=== PATIENT | male | born 1960 | race Caucasian/White ===

== ENCOUNTER → 2017-12-16 10:22 | Outpatient (CLI) | payer MEDICARE, SELFPAY ==
[2017-12-16 11:06] LABS: Hematocrit 41.9 % (40-54); Hemoglobin 14.4 g/dl (13.0-16.5); Mean Corp Hgb Conc 34.4 g/gl (32-36); Mean Corpuscular Hgb 30.5 pg (27.0-32.0); Mean Corpuscular Volume 88.8 fL (80-94); Mean Platelet Vol. 10.4 fl (6.2-12.0); Platelet Count 173 K/mm3 (150-450); RBC Distribution Width CV 12.7 % (11.6-14.6); RBC Distribution Width SD 40.7 fl (35.1-43.9); Red Blood Count 4.72 M/mm3 (4.6-6.2); White Blood Count 8.6 K/mm3 (4.4-11.0)
[2017-12-16 11:07] LABS: Scan Indicated on CBC? Y/N NO
[2017-12-16 11:15] LABS: Microalbumin,Random Urine 71.7 mg/L (NO RANGE EST.); Microalbumin:Creatinine Ratio 73.8 mg/g CRE (<30 mg/g CRE)
[2017-12-16 11:36] LABS: Albumin, Serum 3.7 g/dL (3.2-5.0); BUN 30 mg/dL (7-18); BUN/Creat Ratio 12.4 RATIO (10-20); Calcium,Total 8.5 mg/dL (8.5-10.1); Chloride 110 mmol/L (98-107); Creatinine, Serum 2.42 mg/dL (0.70-1.30); EST Glomerular Filtration Rate 30 mL/min (>60); Est Glom Filt Rate - Afr Amer 36 mL/min (>60); Glucose 89 mg/dL (74-106); Magnesium 1.8 mg/dL (1.6-2.6); Phosphorus 2.8 mg/dL (2.5-4.9); Potassium 4.6 mmol/L (3.5-5.1); Sodium Level 138 mmol/L (136-145)
[2017-12-17 10:52] LABS: Vitamin D,25 Hydroxy 43.7 ng/mL (29.95-100.01)
[2017-12-17 10:56] LABS: PTHIN 132.2 pg/mL (18.4-80.1)
== END ==
PROVIDERS: Family Provider Family Medicine; PCP Family Medicine; Visit Provider Internal Medicine Nephrology
DX: N18.4 Chronic kidney disease, stage 4 (severe) (principal); E55.9 Vitamin D deficiency, unspecified; N25.81 Secondary hyperparathyroidism of renal origin
CPT/HCPCS: 36415; 80069; 82043; 82306; 82570; 83735; 83970; 85027

== ENCOUNTER → 2018-03-24 12:13 | Outpatient (CLI) | payer MEDICARE, SELFPAY ==
[2018-03-24 12:40] LABS: Absolute Lymphocyte Count 1.29 X10^3/ul (0.83-4.51); Absolute Neutrophil Count 5.7 X10^3/uL (2.0-7.7); Basophil# 0.03 X10^3/uL; Basophil% 0.4 % (0-1); Eosinophil# 0.18 X10^3/uL; Eosinophils% 2.3 % (0-5); Hematocrit 42.7 % (40-54); Hemoglobin 14.1 g/dl (13.0-16.5); Lymphocyte # 1.29 X10^3/ul (4.0); Lymphocyte % 16.5 % (19-41); Mean Corpuscular Hgb 29.7 pg (27.0-32.0); Mean Corpuscular Volume 90.1 fL (80-94); Monocyte# 0.58 X10^3/uL; Monocyte% 7.4 % (0-10); Neutrophil # 5.71 X10^3/uL (2.7-7.7); Neutrophil % 73.1 % (47-70); POSITIVE COUNT NO; POSITIVE DIFFERENTIAL NO; POSITIVE MORPHOLOGY NO; Platelet Count 152 K/mm3 (150-450); RBC Distribution Width CV 12.6 % (11.6-14.6); RBC Distribution Width SD 41.4 fl (35.1-43.9); Red Blood Count 4.74 M/mm3 (4.6-6.2); White Blood Count 7.8 K/mm3 (4.4-11.0)
[2018-03-24 12:55] LABS: Protein:Creat Ratio 213 mg/g CRE (0-200)
[2018-03-24 13:03] LABS: Albumin, Serum 3.7 g/dL (3.2-5.0); BUN 35 mg/dL (7-18); Calcium,Total 8.6 mg/dL (8.5-10.1); Chloride 111 mmol/L (98-107); EST Glomerular Filtration Rate 26 mL/min (>60); Est Glom Filt Rate - Afr Amer 31 mL/min (>60); Glucose 94 mg/dL (74-106); Phosphorus 3.1 mg/dL (2.5-4.9); Potassium 4.7 mmol/L (3.5-5.1); Sodium Level 140 mmol/L (136-145)
[2018-03-25 09:47] LABS: PTHIN 165.6 pg/mL (18.4-80.1)
[2018-03-25 09:54] LABS: Vitamin D,25 Hydroxy 48.8 ng/mL (29.95-100.01)
== END ==
PROVIDERS: Family Provider Family Medicine; PCP Family Medicine; Visit Provider Internal Medicine Nephrology
DX: N18.4 Chronic kidney disease, stage 4 (severe) (principal); E55.9 Vitamin D deficiency, unspecified; N25.81 Secondary hyperparathyroidism of renal origin
CPT/HCPCS: 36415; 80069; 82306; 82570; 83970; 84156; 85025

== ENCOUNTER → 2018-07-23 11:15 | Outpatient (CLI) | payer MEDICARE, SELFPAY ==
[2018-07-23 12:35] LABS: Hematocrit 42.3 % (40-54); Hemoglobin 14.3 g/dl (13.0-16.5); Mean Corp Hgb Conc 33.8 g/gl (32-36); Mean Corpuscular Hgb 30.4 pg (27.0-32.0); Mean Corpuscular Volume 89.8 fL (80-94); Mean Platelet Vol. 10.4 fl (6.2-12.0); Platelet Count 163 K/mm3 (150-450); RBC Distribution Width CV 12.6 % (11.6-14.6); RBC Distribution Width SD 41.1 fl (35.1-43.9); Red Blood Count 4.71 M/mm3 (4.6-6.2); White Blood Count 8.2 K/mm3 (4.4-11.0)
[2018-07-23 12:36] LABS: Scan Indicated on CBC? Y/N NO
[2018-07-23 12:54] LABS: Albumin, Serum 3.8 g/dL (3.2-5.0); BUN 30 mg/dL (7-18); BUN/Creat Ratio 11.3 RATIO (10-20); Calcium,Total 8.7 mg/dL (8.5-10.1); Chloride 111 mmol/L (98-107); Creatinine, Serum 2.65 mg/dL (0.70-1.30); EST Glomerular Filtration Rate 27 mL/min (>60); Est Glom Filt Rate - Afr Amer 32 mL/min (>60); Glucose 84 mg/dL (74-106); Phosphorus 2.8 mg/dL (2.5-4.9); Potassium 4.9 mmol/L (3.5-5.1); Sodium Level 140 mmol/L (136-145)
[2018-07-23 12:59] LABS: Protein, Urine (Random) 13.5 mg/dL (<11.9); Protein:Creat Ratio 209 mg/g CRE (0-200)
[2018-07-23 13:00] LABS: PTHIN 117.5 pg/mL (18.4-80.1); Vitamin D,25 Hydroxy 46.5 ng/mL (29.95-100.01)
== END ==
PROVIDERS: Family Provider Family Medicine; PCP Family Medicine; Referring Provider Internal Medicine Nephrology; Visit Provider Internal Medicine Nephrology
DX: N18.4 Chronic kidney disease, stage 4 (severe) (principal)
CPT/HCPCS: 36415; 80069; 82306; 82570; 83970; 84156; 85027

== ENCOUNTER → 2018-12-23 | Outpatient (CLI) | payer MEDICARE, SELFPAY ==
[2018-12-23 11:42] LABS: Hematocrit 39.6 % (40-54); Hemoglobin 13.5 g/dl (13.0-16.5); Mean Corp Hgb Conc 34.1 g/gl (32-36); Mean Corpuscular Hgb 30.1 pg (27.0-32.0); Mean Corpuscular Volume 88.4 fL (80-94); Mean Platelet Vol. 9.8 fl (6.2-12.0); Platelet Count 139 K/mm3 (150-450); RBC Distribution Width CV 12.5 % (11.6-14.6); RBC Distribution Width SD 40.2 fl (35.1-43.9); Red Blood Count 4.48 M/mm3 (4.6-6.2); White Blood Count 6.9 K/mm3 (4.4-11.0)
[2018-12-23 11:44] LABS: Scan Indicated on CBC? Y/N NO
[2018-12-23 11:53] LABS: Protein, Urine (Random) 13.6 mg/dL (<11.9); Protein:Creat Ratio 258 mg/g CRE (0-200)
[2018-12-23 12:08] LABS: Albumin, Serum 3.4 g/dL (3.2-5.0); BUN 40 mg/dL (7-18); BUN/Creat Ratio 14.1 RATIO (10-20); Calcium,Total 8.3 mg/dL (8.5-10.1); Chloride 109 mmol/L (98-107); Creatinine, Serum 2.83 mg/dL (0.70-1.30); EST Glomerular Filtration Rate 25 mL/min (>60); Est Glom Filt Rate - Afr Amer 30 mL/min (>60); Glucose 114 mg/dL (74-106); Phosphorus 2.7 mg/dL (2.5-4.9); Potassium 4.4 mmol/L (3.5-5.1); Sodium Level 138 mmol/L (136-145)
[2018-12-23 12:15] LABS: PTHIN 126.8 pg/mL (18.4-80.1); Vitamin D,25 Hydroxy 46.3 ng/mL (29.95-100.01)
== END | disposition home or self-care (01) ==
LOC: LAB 11:13
PROVIDERS: Family Provider Family Medicine; PCP Family Medicine; Referring Provider Physician Assistant Medical; Visit Provider Physician Assistant Medical
DX: N18.3 Chronic kidney disease, stage 3 (moderate) (principal); E55.9 Vitamin D deficiency, unspecified
CPT/HCPCS: 36415; 80069; 82306; 82570; 83970; 84156; 85027

== ENCOUNTER → 2019-06-18 09:42 | Outpatient (CLI) | payer MEDICARE, SELFPAY ==
[2019-06-18 10:56] LABS: Absolute Lymphocyte Count 1.11 X10^3/uL (0.83-4.51); Absolute Neutrophil Count 6.2 X10^3/uL (2.0-7.7); Basophil# 0.04 X10^3/uL; Basophil% 0.5 % (0-1); Eosinophil# 0.24 X10^3/uL; Eosinophils% 2.9 % (0-5); Hematocrit 42.5 % (40-54); Hemoglobin 14.1 g/dL (13.0-16.5); Lymphocyte # 1.11 X10^3/ul (4.0); Lymphocyte % 13.5 % (19-41); Mean Corp Hgb Conc 33.2 g/dL (32-36); Mean Corpuscular Hgb 30.3 pg (27.0-32.0); Mean Corpuscular Volume 91.2 fL (80-94); Mean Platelet Vol. 10.5 fl (6.2-12.0); Monocyte# 0.58 X10^3/uL; NRBC Flagged by Analyzer 0 % (0-5); Neutrophil # 6.24 X10^3/uL (2.7-7.7); Neutrophil % 75.7 % (47-70); Platelet Count 155 K/mm3 (150-450); RBC Distribution Width CV 12.1 % (11.6-14.6); RBC Distribution Width SD 40.4 fl (35.1-43.9); Red Blood Count 4.66 M/mm3 (4.6-6.2); White Blood Count 8.2 K/mm3 (4.4-11.0)
[2019-06-18 11:08] LABS: Protein, Urine (Random) 32.9 mg/dL (<11.9); Protein:Creat Ratio 436 mg/g CRE (0-200)
[2019-06-18 11:22] LABS: Albumin, Serum 3.6 g/dL (3.2-5.0); BUN 36 mg/dL (7-18); BUN/Creat Ratio 12.9 RATIO (10-20); Calcium,Total 8.4 mg/dL (8.5-10.1); Chloride 110 mmol/L (98-107); Creatinine, Serum 2.78 mg/dL (0.70-1.30); EST Glomerular Filtration Rate 25 mL/min (>60); Est Glom Filt Rate - Afr Amer 30 mL/min (>60); Glucose 111 mg/dL (74-106); Phosphorus 2.9 mg/dL (2.5-4.9); Potassium 4.5 mmol/L (3.5-5.1); Sodium Level 140 mmol/L (136-145)
[2019-06-18 11:29] LABS: Vitamin D,25 Hydroxy 56.7 ng/mL (29.95-100.01)
== END ==
PROVIDERS: Family Provider Family Medicine; PCP Family Medicine; Referring Provider Internal Medicine Nephrology; Visit Provider Internal Medicine Nephrology
DX: N18.4 Chronic kidney disease, stage 4 (severe) (principal); N25.81 Secondary hyperparathyroidism of renal origin; E55.9 Vitamin D deficiency, unspecified; Z13.0 Encounter for screening for diseases of the blood and blood-forming organs and certain disorders involving the immune mechanism
CPT/HCPCS: 36415; 80069; 82306; 82570; 83970; 84156; 85025

== ENCOUNTER → 2019-07-06 10:57 | Outpatient (CLI) | payer MEDICARE, SELFPAY ==
[2019-07-06 11:26] LABS: Hematocrit 38.5 % (40-54); Hemoglobin 13.1 g/dL (13.0-16.5); Mean Corpuscular Hgb 29.9 pg (27.0-32.0); Mean Corpuscular Volume 87.9 fL (80-94); Mean Platelet Vol. 9.9 fl (6.2-12.0); Platelet Count 155 K/mm3 (150-450); RBC Distribution Width CV 11.9 % (11.6-14.6); RBC Distribution Width SD 38.7 fl (35.1-43.9); Red Blood Count 4.38 M/mm3 (4.6-6.2); White Blood Count 7.6 K/mm3 (4.4-11.0)
[2019-07-06 11:36] LABS: Protein, Urine (Random) 30.1 mg/dL (<11.9); Protein:Creat Ratio 369 mg/g CRE (0-200)
[2019-07-06 11:55] LABS: AST(SGOT) 13 U/L (15-37); Alanine Aminotransfer ALT/SGPT 25 U/L (16-61); Albumin, Serum 3.4 g/dL (3.2-5.0); Alkaline Phosphatase 78 U/L (45-117); BUN 45 mg/dL (7-18); Bilirubin, Direct 0.13 mg/dL (0.00-0.30); Calcium,Total 8.5 mg/dL (8.5-10.1); Chloride 110 mmol/L (98-107); Creatinine, Serum 3.01 mg/dL (0.70-1.30); EST Glomerular Filtration Rate 23 mL/min (>60); Est Glom Filt Rate - Afr Amer 28 mL/min (>60); Globulin 3.5 g/dL (2.2-4.2); Glucose 97 mg/dL (74-106); PTHIN 175.6 pg/mL (18.4-80.1); Phosphorus 3.5 mg/dL (2.5-4.9); Potassium 4.5 mmol/L (3.5-5.1); Protein, Total 6.9 g/dL (6.4-8.2); Sodium Level 140 mmol/L (136-145); Vitamin D,25 Hydroxy 45.1 ng/mL (29.95-100.01)
[2019-11-16 10:00] LABS: Bedside Glucose 139 mg/dL (70-110)
== END ==
PROVIDERS: Family Provider Family Medicine; PCP Family Medicine; Referring Provider Internal Medicine Nephrology; Visit Provider Internal Medicine Nephrology
DX: N18.4 Chronic kidney disease, stage 4 (severe) (principal); E55.9 Vitamin D deficiency, unspecified; N25.81 Secondary hyperparathyroidism of renal origin; Q61.3 Polycystic kidney, unspecified; Z13.0 Encounter for screening for diseases of the blood and blood-forming organs and certain disorders involving the immune mechanism
CPT/HCPCS: 36415; 80069; 82247; 82248; 82306; 82570; 82962; 83970; 84075; 84156; 84450; 84460; 85027

== ENCOUNTER → 2019-09-27 | Outpatient (CLI) | payer MEDICARE, SELFPAY ==
[2019-09-27 12:03] LABS: AST(SGOT) 15 U/L (15-37); Alanine Aminotransfer ALT/SGPT 20 U/L (16-61); Albumin, Serum 3.6 g/dL (3.2-5.0); Alkaline Phosphatase 74 U/L (45-117); Bilirubin, Direct 0.08 mg/dL (0.00-0.30); Globulin 3.4 g/dL (2.2-4.2)
== END | disposition home or self-care (01) ==
LOC: LAB 11:21
PROVIDERS: PCP Family Medicine; Referring Provider Internal Medicine Nephrology; Visit Provider Internal Medicine Nephrology
DX: Q61.3 Polycystic kidney, unspecified (principal)
CPT/HCPCS: 36415; 80076

== ENCOUNTER → 2019-10-11 | Outpatient (CLI) | payer MEDICARE, SELFPAY ==
[2019-10-11 12:14] LABS: AST(SGOT) 14 U/L (15-37); Alanine Aminotransfer ALT/SGPT 21 U/L (16-61); Albumin, Serum 3.9 g/dL (3.2-5.0); Alkaline Phosphatase 85 U/L (45-117); Bilirubin, Direct 0.11 mg/dL (0.00-0.30); Globulin 3.6 g/dL (2.2-4.2); Protein, Total 7.5 g/dL (6.4-8.2)
== END | disposition home or self-care (01) ==
LOC: LAB 10:37
PROVIDERS: PCP Family Medicine; Referring Provider Internal Medicine Nephrology; Visit Provider Internal Medicine Nephrology
DX: Q61.3 Polycystic kidney, unspecified (principal)
CPT/HCPCS: 36415; 80076

== ENCOUNTER → 2019-10-25 | Outpatient (CLI) | payer MEDICARE, SELFPAY ==
[2019-10-25 12:09] LABS: Hematocrit 42.6 % (40-54); Hemoglobin 14.5 g/dL (13.0-16.5); Mean Corpuscular Hgb 31.5 pg (27.0-32.0); Mean Corpuscular Volume 92.4 fL (80-94); Mean Platelet Vol. 10.1 fl (6.2-12.0); Platelet Count 145 K/mm3 (150-450); RBC Distribution Width CV 12.3 % (11.6-14.6); RBC Distribution Width SD 41.2 fl (35.1-43.9); Red Blood Count 4.61 M/mm3 (4.6-6.2); White Blood Count 9.4 K/mm3 (4.4-11.0)
[2019-10-25 12:13] LABS: Protein, Urine (Random) 11.3 mg/dL (<11.9); Protein:Creat Ratio 391 mg/g CRE (0-200)
[2019-10-25 12:22] LABS: PTHIN 101.6 pg/mL (18.4-80.1)
[2019-10-25 12:23] LABS: Albumin, Serum 3.9 g/dL (3.2-5.0); BUN 39 mg/dL (7-18); BUN/Creat Ratio 11.7 RATIO (10-20); Calcium,Total 9.1 mg/dL (8.5-10.1); Chloride 113 mmol/L (98-107); Creatinine, Serum 3.32 mg/dL (0.70-1.30); EST Glomerular Filtration Rate 20 mL/min (>60); Est Glom Filt Rate - Afr Amer 25 mL/min (>60); Glucose 100 mg/dL (74-106); Phosphorus 3.1 mg/dL (2.5-4.9); Potassium 5.1 mmol/L (3.5-5.1); Sodium Level 141 mmol/L (136-145)
[2019-10-25 12:25] LABS: Vitamin D,25 Hydroxy 53.8 ng/mL
== END | disposition home or self-care (01) ==
LOC: LAB 11:40
PROVIDERS: PCP Family Medicine; Referring Provider Internal Medicine Nephrology; Visit Provider Internal Medicine Nephrology
DX: N18.4 Chronic kidney disease, stage 4 (severe) (principal); E55.9 Vitamin D deficiency, unspecified; N25.81 Secondary hyperparathyroidism of renal origin; Z13.0 Encounter for screening for diseases of the blood and blood-forming organs and certain disorders involving the immune mechanism
CPT/HCPCS: 36415; 80069; 82306; 82570; 83970; 84156; 85027

== ENCOUNTER → 2019-11-11 | Outpatient (CLI) | payer MEDICARE, SELFPAY ==
[2019-11-11 13:34] LABS: AST(SGOT) 14 U/L (15-37); Alanine Aminotransfer ALT/SGPT 16 U/L (16-61); Albumin, Serum 3.8 g/dL (3.2-5.0); Alkaline Phosphatase 84 U/L (45-117); Bilirubin, Direct 0.09 mg/dL (0.00-0.30); Globulin 3.6 g/dL (2.2-4.2); Protein, Total 7.4 g/dL (6.4-8.2)
== END | disposition home or self-care (01) ==
LOC: LAB 11:27
PROVIDERS: PCP Family Medicine; Referring Provider Internal Medicine Nephrology; Visit Provider Internal Medicine Nephrology
DX: Q61.3 Polycystic kidney, unspecified (principal)
CPT/HCPCS: 36415; 80076

== ENCOUNTER → 2019-12-11 | Outpatient (CLI) | payer MEDICARE, SELFPAY ==
[2019-12-11 10:51] LABS: AST(SGOT) 17 U/L (15-37); Alanine Aminotransfer ALT/SGPT 28 U/L (16-61); Albumin, Serum 3.7 g/dL (3.2-5.0); Alkaline Phosphatase 78 U/L (45-117); Bilirubin, Direct 0.12 mg/dL (0.00-0.30); Globulin 3.6 g/dL (2.2-4.2); Protein, Total 7.3 g/dL (6.4-8.2)
== END | disposition home or self-care (01) ==
LOC: LAB 10:02
PROVIDERS: PCP Family Medicine; Referring Provider Internal Medicine Nephrology; Visit Provider Internal Medicine Nephrology
DX: Q61.3 Polycystic kidney, unspecified (principal)
CPT/HCPCS: 36415; 80076

== ENCOUNTER → 2020-01-12 | Outpatient (CLI) | payer MEDICARE, SELFPAY ==
[2020-01-12 13:14] LABS: AST(SGOT) 16 U/L (15-37); Alanine Aminotransfer ALT/SGPT 27 U/L (16-61); Albumin, Serum 3.6 g/dL (3.2-5.0); Alkaline Phosphatase 75 U/L (45-117); Bilirubin, Direct 0.11 mg/dL (0.00-0.30); Globulin 3.5 g/dL (2.2-4.2); Protein, Total 7.1 g/dL (6.4-8.2)
== END | disposition home or self-care (01) ==
LOC: LAB 12:17
PROVIDERS: PCP Family Medicine; Referring Provider Internal Medicine Nephrology; Visit Provider Internal Medicine Nephrology
DX: Q61.3 Polycystic kidney, unspecified (principal)
CPT/HCPCS: 36415; 80076

== ENCOUNTER → 2020-01-24 | Outpatient (CLI) | payer MEDICARE, SELFPAY ==
[2020-01-24 12:36] LABS: Absolute Lymphocyte Count 1.29 X10^3/uL (0.83-4.51); Absolute Neutrophil Count 5.7 X10^3/uL (2.0-7.7); Basophil# 0.03 X10^3/uL; Basophil% 0.4 % (0-1); Eosinophil# 0.26 X10^3/uL; Eosinophils% 3.3 % (0-5); Hematocrit 40.3 % (40-54); Lymphocyte # 1.29 X10^3/ul (4.0); Lymphocyte % 16.3 % (19-41); Mean Corp Hgb Conc 32.3 g/dL (32-36); Mean Corpuscular Hgb 30.4 pg (27.0-32.0); Mean Corpuscular Volume 94.4 fL (80-94); Mean Platelet Vol. 10.1 fl (6.2-12.0); Monocyte# 0.59 X10^3/uL; Monocyte% 7.5 % (0-10); NRBC Flagged by Analyzer 0 % (0-5); Neutrophil # 5.69 X10^3/uL (2.7-7.7); Platelet Count 163 K/mm3 (150-450); RBC Distribution Width CV 12.4 % (11.6-14.6); RBC Distribution Width SD 42.6 fl (35.1-43.9); Red Blood Count 4.27 M/mm3 (4.6-6.2); White Blood Count 7.9 K/mm3 (4.4-11.0)
[2020-01-24 12:45] LABS: Protein, Urine (Random) 13.4 mg/dL (<11.9); Protein:Creat Ratio 399 mg/g CRE (0-200)
[2020-01-24 13:29] LABS: Anion Gap 6 (5-15); BUN 43 mg/dL (7-18); BUN/Creat Ratio 12.6 RATIO (10-20); Calcium,Total 8.6 mg/dL (8.5-10.1); Chloride 110 mmol/L (98-107); Creatinine, Serum 3.42 mg/dL (0.70-1.30); EST Glomerular Filtration Rate 20 mL/min (>60); Est Glom Filt Rate - Afr Amer 24 mL/min (>60); Glucose 121 mg/dL (74-106); Potassium 5.2 mmol/L (3.5-5.1); Sodium Level 138 mmol/L (136-145)
[2020-01-24 13:33] LABS: PTHIN 337.7 pg/mL (18.4-80.1)
[2020-01-24 13:36] LABS: Vitamin D,25 Hydroxy 59.4 ng/mL
== END | disposition home or self-care (01) ==
LOC: LAB 12:01
PROVIDERS: PCP Family Medicine; Referring Provider Internal Medicine Nephrology; Visit Provider Internal Medicine Nephrology
DX: N18.4 Chronic kidney disease, stage 4 (severe) (principal); N25.81 Secondary hyperparathyroidism of renal origin; E55.9 Vitamin D deficiency, unspecified; Z13.0 Encounter for screening for diseases of the blood and blood-forming organs and certain disorders involving the immune mechanism
CPT/HCPCS: 36415; 80048; 82306; 82570; 83970; 84156; 85025

== ENCOUNTER → 2020-02-11 | Outpatient (CLI) | payer MEDICARE, SELFPAY ==
[2020-02-11 13:09] LABS: AST(SGOT) 12 U/L (15-37); Alanine Aminotransfer ALT/SGPT 21 U/L (16-61); Albumin, Serum 3.5 g/dL (3.2-5.0); Alkaline Phosphatase 79 U/L (45-117); Bilirubin, Direct 0.11 mg/dL (0.00-0.30); Globulin 3.6 g/dL (2.2-4.2); Protein, Total 7.1 g/dL (6.4-8.2)
== END | disposition home or self-care (01) ==
LOC: LAB 11:48
PROVIDERS: PCP Family Medicine; Referring Provider Internal Medicine Nephrology; Visit Provider Internal Medicine Nephrology
DX: Q61.3 Polycystic kidney, unspecified (principal)
CPT/HCPCS: 36415; 80076

== ENCOUNTER → 2020-03-13 | Outpatient (CLI) | payer MEDICARE, SELFPAY ==
[2020-03-13 13:10] LABS: AST(SGOT) 13 U/L (15-37); Alanine Aminotransfer ALT/SGPT 21 U/L (16-61); Albumin, Serum 3.6 g/dL (3.2-5.0); Alkaline Phosphatase 68 U/L (45-117); Bilirubin, Direct 0.11 mg/dL (0.00-0.30); Globulin 3.6 g/dL (2.2-4.2); Protein, Total 7.2 g/dL (6.4-8.2)
== END | disposition home or self-care (01) ==
LOC: LAB 11:33
PROVIDERS: PCP Family Medicine; Referring Provider Internal Medicine Nephrology; Visit Provider Internal Medicine Nephrology
DX: Q61.3 Polycystic kidney, unspecified (principal)
CPT/HCPCS: 36415; 80076

== ENCOUNTER → 2020-04-12 | Outpatient (CLI) | payer MEDICARE, SELFPAY ==
[2020-04-12 13:31] LABS: AST(SGOT) 16 U/L (15-37); Alanine Aminotransfer ALT/SGPT 26 U/L (16-61); Albumin, Serum 3.7 g/dL (3.2-5.0); Alkaline Phosphatase 79 U/L (45-117); Bilirubin, Direct 0.11 mg/dL (0.00-0.30); Globulin 3.6 g/dL (2.2-4.2); Protein, Total 7.3 g/dL (6.4-8.2)
== END | disposition home or self-care (01) ==
LOC: LAB 12:11
PROVIDERS: PCP Family Medicine; Referring Provider Internal Medicine Nephrology; Visit Provider Internal Medicine Nephrology
DX: Q61.3 Polycystic kidney, unspecified (principal)
CPT/HCPCS: 36415; 80076

== ENCOUNTER → 2020-04-19 10:42 | Outpatient (CLI) | payer MEDICARE, SELFPAY ==
[2020-04-19 11:22] LABS: Hematocrit 37.6 % (40-54); Hemoglobin 12.7 g/dL (13.0-16.5); Mean Corp Hgb Conc 33.8 g/dL (32-36); Mean Corpuscular Hgb 31.2 pg (27.0-32.0); Mean Corpuscular Volume 92.4 fL (80-94); Mean Platelet Vol. 10.1 fl (6.2-12.0); Platelet Count 161 K/mm3 (150-450); RBC Distribution Width CV 12.2 % (11.6-14.6); RBC Distribution Width SD 41.5 fl (35.1-43.9); Red Blood Count 4.07 M/mm3 (4.6-6.2); White Blood Count 9.4 K/mm3 (4.4-11.0)
[2020-04-19 11:34] LABS: Protein, Urine (Random) 36.2 mg/dL (<11.9); Protein:Creat Ratio 651 mg/g CRE (0-200)
[2020-04-19 12:01] LABS: Albumin, Serum 3.5 g/dL (3.2-5.0); BUN 35 mg/dL (7-18); BUN/Creat Ratio 9.9 RATIO (10-20); Calcium,Total 8.9 mg/dL (8.5-10.1); Chloride 110 mmol/L (98-107); Creatinine, Serum 3.52 mg/dL (0.70-1.30); EST Glomerular Filtration Rate 19 mL/min (>60); Est Glom Filt Rate - Afr Amer 23 mL/min (>60); Glucose 163 mg/dL (74-106); Phosphorus 2.9 mg/dL (2.5-4.9); Potassium 4.3 mmol/L (3.5-5.1); Sodium Level 140 mmol/L (136-145)
[2020-04-19 12:10] LABS: Vitamin D,25 Hydroxy 53.4 ng/mL
[2020-04-19 12:29] LABS: PTHIN 207.7 pg/mL (18.4-80.1)
== END ==
PROVIDERS: PCP Family Medicine; Referring Provider Internal Medicine Nephrology; Visit Provider Internal Medicine Nephrology
DX: N18.4 Chronic kidney disease, stage 4 (severe) (principal); E55.9 Vitamin D deficiency, unspecified; N25.81 Secondary hyperparathyroidism of renal origin
CPT/HCPCS: 36415; 80069; 82306; 82570; 83970; 84156; 85027

== ENCOUNTER → 2020-05-13 | Outpatient (CLI) ==
[2020-05-13 12:38] LABS: AST(SGOT) 14 U/L (15-37); Alanine Aminotransfer ALT/SGPT 21 U/L (16-61); Albumin, Serum 3.7 g/dL (3.2-5.0); Alkaline Phosphatase 75 U/L (45-117); Bilirubin, Direct 0.12 mg/dL (0.00-0.30); Globulin 3.9 g/dL (2.2-4.2); Protein, Total 7.6 g/dL (6.4-8.2)
== END | disposition home or self-care (01) ==
PROVIDERS: Internal Medicine Nephrology
DX: Q61.3 Polycystic kidney, unspecified (principal)
CPT/HCPCS: 36415; 80076

== ENCOUNTER → 2020-07-27 11:16 | Outpatient (CLI) | payer MEDICARE, SELFPAY ==
[2020-07-27 12:34] LABS: Anion Gap 5 (5-15); BUN 43 mg/dL (7-18); BUN/Creat Ratio 12.4 RATIO (10-20); Calcium,Total 8.3 mg/dL (8.5-10.1); Chloride 109 mmol/L (98-107); Creatinine, Serum 3.47 mg/dL (0.70-1.30); EST Glomerular Filtration Rate 19 mL/min (>60); Est Glom Filt Rate - Afr Amer 23 mL/min (>60); Glucose 94 mg/dL (74-106); Potassium 5.1 mmol/L (3.5-5.1); Sodium Level 137 mmol/L (136-145)
[2020-07-27 13:45] LABS: Protein:Creat Ratio 382 mg/g CRE (0-200)
== END ==
PROVIDERS: PCP Family Medicine; Referring Provider Internal Medicine Nephrology; Visit Provider Internal Medicine Nephrology
DX: N18.4 Chronic kidney disease, stage 4 (severe) (principal)
CPT/HCPCS: 36415; 80048; 82570; 84156

== ENCOUNTER → 2020-12-26 11:19 | Outpatient (CLI) | payer MEDICARE, SELFPAY ==
[2020-12-26 11:53] LABS: Hematocrit 36.8 % (40-54); Hemoglobin 12.2 g/dL (13.0-16.5); Mean Corp Hgb Conc 33.2 g/dL (32-36); Mean Corpuscular Hgb 29.7 pg (27.0-32.0); Mean Corpuscular Volume 89.5 fL (80-94); Mean Platelet Vol. 9.9 fl (6.2-12.0); Platelet Count 163 K/mm3 (150-450); RBC Distribution Width CV 12.2 % (11.6-14.6); RBC Distribution Width SD 40.1 fl (35.1-43.9); Red Blood Count 4.11 M/mm3 (4.6-6.2); White Blood Count 7.9 K/mm3 (4.4-11.0)
[2020-12-26 12:01] LABS: Protein, Urine (Random) 35.3 mg/dL (<11.9); Protein:Creat Ratio 540 mg/g CRE (0-200)
[2020-12-26 12:25] LABS: Albumin, Serum 3.5 g/dL (3.2-5.0); BUN 43 mg/dL (7-18); BUN/Creat Ratio 11.1 RATIO (10-20); Calcium,Total 8.3 mg/dL (8.5-10.1); Chloride 110 mmol/L (98-107); Creatinine, Serum 3.89 mg/dL (0.70-1.30); EST Glomerular Filtration Rate 17 mL/min (>60); Est Glom Filt Rate - Afr Amer 20 mL/min (>60); Glucose 94 mg/dL (74-106); Phosphorus 4.2 mg/dL (2.5-4.9); Potassium 4.9 mmol/L (3.5-5.1); Sodium Level 138 mmol/L (136-145)
[2020-12-26 12:39] LABS: PTHIN 274.1 pg/mL (18.4-80.1)
[2020-12-26 12:43] LABS: Vitamin D,25 Hydroxy 46.8 ng/mL
== END ==
PROVIDERS: PCP Family Medicine; Visit Provider Internal Medicine Nephrology
DX: N18.4 Chronic kidney disease, stage 4 (severe) (principal); E55.9 Vitamin D deficiency, unspecified; N25.81 Secondary hyperparathyroidism of renal origin; Z13.0 Encounter for screening for diseases of the blood and blood-forming organs and certain disorders involving the immune mechanism
CPT/HCPCS: 36415; 80069; 82306; 82570; 83970; 84156; 85027

== ENCOUNTER → 2021-04-20 | Outpatient (CLI) | payer MEDICARE, SELFPAY ==
[2021-04-20 12:19] LABS: Hematocrit 36.5 % (40-54); Hemoglobin 11.9 g/dL (13.0-16.5); Mean Corp Hgb Conc 32.6 g/dL (32-36); Mean Corpuscular Hgb 29.8 pg (27.0-32.0); Mean Corpuscular Volume 91.5 fL (80-94); Mean Platelet Vol. 9.9 fl (6.2-12.0); Platelet Count 143 K/mm3 (150-450); RBC Distribution Width CV 11.9 % (11.6-14.6); Red Blood Count 3.99 M/mm3 (4.6-6.2); White Blood Count 8.3 K/mm3 (4.4-11.0)
[2021-04-20 12:50] LABS: PTHIN 285.3 pg/mL (18.4-80.1); Protein, Urine (Random) 41.2 mg/dL (<11.9); Protein:Creat Ratio 483 mg/g CRE (0-200)
[2021-04-20 12:53] LABS: Vitamin D,25 Hydroxy 49.7 ng/mL
[2021-04-20 12:54] LABS: Anion Gap 5 (5-15); BUN 55 mg/dL (7-18); BUN/Creat Ratio 13.6 RATIO (10-20); Calcium,Total 8.6 mg/dL (8.5-10.1); Chloride 113 mmol/L (98-107); Creatinine, Serum 4.03 mg/dL (0.70-1.30); EST Glomerular Filtration Rate 16 mL/min (>60); Est Glom Filt Rate - Afr Amer 20 mL/min (>60); Glucose 100 mg/dL (74-106); Potassium 5.2 mmol/L (3.5-5.1); Sodium Level 138 mmol/L (136-145)
== END | disposition home or self-care (01) ==
LOC: LAB 11:58
PROVIDERS: PCP Family Medicine; Referring Provider Internal Medicine Nephrology; Visit Provider Internal Medicine Nephrology
DX: N18.4 Chronic kidney disease, stage 4 (severe) (principal)
CPT/HCPCS: 36415; 80048; 82306; 82570; 83970; 84156; 85027

== ENCOUNTER → 2021-05-23 12:44 | Outpatient (CLI) | payer MEDICARE, SELFPAY ==
--- NOTE | 2021-05-23 12:49 | VDUE_ITS ---
Reason For Study: Acute renal failure Right Arm Left Arm Right Cephalic Vein at the wrist measures Left Cephalic Vein at the wrist measures 0.38 x 0.39 cm. 0.34 x 0.34 cm. Right Cephalic Vein in the forearm measures Left Cephalic Vein in the forearm measures 0.34 x 0.33 cm. 0.38 x 0.37 cm. Right Cephalic Vein below antecub measures Cephalic mid forearm branch, 0.19 x 0.19 cm. 0.32 x 0.33 cm. Left Cephalic Vein below antecub measures Right Cephalic Vein above antecub measures 0.34 x 0.33 cm. 0.50 x 0.51 cm. Left Cephalic Vein above antecub measures Right Cephalic Vein mid bicep measures 0.46 0.43 x 0.42 cm. x 0.46 cm. Left Cephalic Vein at mid bicep measures Right Cephalic Vein at the shoulder measures 0.50 x 0.50 cm. 0.47 x 0.47 cm. Left Cephalic Vein at the shoulder measures Right Basilic Vein at the origin measures 0.48 x 0.48 cm. 0.49 x 0.48 cm. Basilic vein at origin measures 0.44 x 0.48 Right Basilic Vein mid bicep measures 0.58 x cm. 0.58 cm. Basilic vein at bicep measures 0.53 x 0.56 Right Basilic Vein above antecub measures cm. 0.71 x 0.75 cm. Basilic vein above antecub measures 0.41 x Right Brachial artery measures 0.51 x 0.51 0.43 cm. cm with a velcoity of 117.6 cm/sec. Left Brachial artery measures 0.54 x 0.52 cm Right Radial artery measures 0.36 x 0.36 cm with a velocity of 104.5 cm/sec. with a velocity of 144 cm/sec. Left Radial artery measures 0.34 x 0.34 cm with a velocity of 104.4 cm/sec. VL/Saphenous Vein Mapping, Bilat Interpretation Summary Patent and compressible bilateral upper extremity cephalic and basilic veins as noted. Generous diameters noted. Branch of the left mid forearm cephalic vein specifically noted Normal diameter and flow bilateral radial and brachial arteries Ordering Physician: Jose Culver Referring Physician: Jg Pollard Performed By: Keysha Hein RVT ?
== END ==
PROVIDERS: PCP Family Medicine; Referring Provider Surgery; Visit Provider Surgery
DX: Z01.818 Encounter for other preprocedural examination (principal); N18.4 Chronic kidney disease, stage 4 (severe); N17.9 Acute kidney failure, unspecified
CPT/HCPCS: 93970; 93985

== ENCOUNTER 2021-06-08 10:58 | Day surgery (SDC) | payer MEDICARE, SELFPAY ==
--- NOTE | 2021-06-07 10:23 | EKG12_ITS ---
Test Reason : PREOP Blood Pressure : / mmHG Vent. Rate : 054 BPM Atrial Rate : 054 BPM P-R Int : 156 ms QRS Dur : 106 ms QT Int : 438 ms P-R-T Axes : 051 083 113 degrees QTc Int : 415 ms Sinus bradycardia Anterior infarct , age undetermined Abnormal ECG Confirmed by JOSE RAFAEL CESPEDES, MIRNA ([id number]), website/blog editor PETE HO ([id number]) on 06/08/2021 6:49:05 AM Referred By: Jose Culver Confirmed By:MIRNA MANTILLA MD
[2021-06-07 11:24] LABS: Hematocrit 36.8 % (40-54); Hemoglobin 12.4 g/dL (13.0-16.5); Mean Corp Hgb Conc 33.7 g/dL (32-36); Mean Corpuscular Hgb 29.8 pg (27.0-32.0); Mean Corpuscular Volume 88.5 fL (80-94); Mean Platelet Vol. 10.1 fl (6.2-12.0); Platelet Count 179 K/mm3 (150-450); RBC Distribution Width CV 12.1 % (11.6-14.6); RBC Distribution Width SD 39.2 fl (35.1-43.9); Red Blood Count 4.16 M/mm3 (4.6-6.2); White Blood Count 8.2 K/mm3 (4.4-11.0)
[2021-06-07 12:09] LABS: Anion Gap 8 (5-15); BUN 39 mg/dL (7-18); BUN/Creat Ratio 9.6 RATIO (10-20); Calcium,Total 9.2 mg/dL (8.5-10.1); Chloride 108 mmol/L (98-107); Creatinine, Serum 4.08 mg/dL (0.70-1.30); EST Glomerular Filtration Rate 16 mL/min (>60); Est Glom Filt Rate - Afr Amer 19 mL/min (>60); Glucose 115 mg/dL (74-106); Potassium 4.2 mmol/L (3.5-5.1); Sodium Level 139 mmol/L (136-145)
[2021-06-08] VITALS (8 sets, daily range): BP systolic 116–143; BP diastolic 63–81; PULSE 48–54; RESP 16–18; TEMP 36–36.5; O2SAT 96–100; BMI 27.8
--- NOTE | 2021-06-08 11:39 | PCM.HP.BLA ---
History and Physical Date of Admission: 06/08/21 Intake Visit Reasons: FISTULA , VM 05/23 Chief Complaint: fistula [employer] Required: No Is patient in pain?: No Allergies No Known Allergies Allergy (Verified 05/29/21 13:36) Medications aspirin 81 mg tablet,delayed release 81 mg PO DAILY 05/29/21 [History Confirmed 05/29/21] cholecalciferol (vitamin D3) 125 mcg (5,000 unit) capsule 125 mcg PO DAILY 05/29/21 [History Confirmed 05/29/21] metoprolol tartrate 25 mg tablet mg PO 05/29/21 [History Confirmed 05/29/21] ondansetron 4 mg disintegrating tablet 4 mg PO BID PRN tab 05/29/21 [History Confirmed 05/29/21] oxycodone 5 mg tablet 5 mg PO Q6H PRN tab 05/29/21 [History Confirmed 05/29/21] pravastatin 40 mg tablet mg PO 05/29/21 [History Confirmed 05/29/21] PFS Medical History (Updated 05/29/21 @ 13:[address] Jose Culver MD) Acute renal failure Anxiety and depression CAD (coronary artery disease) Chronic progressive renal failure, stage 4 (severe) GERD (gastroesophageal reflux disease) Hemorrhoids, internal HTN (hypertension) Myocardial infarction Osteoarthritis Surgical History (Updated 05/29/21 @ 13:35 by Sussy Leo) History of cardiac catheterization History of coronary artery bypass graft History of heart artery stent Family History (Updated 05/29/21 @ 13:36 by Sussy Leo) Father Cancer abdominal tumor--unsure type Social History Smoking Status: Current every day smoker HPI HPI HPI: MARLO ADAMSON, is a 60 M who presents to the office today for surgical consultation regarding creation of an arteriovenous hemodialysis fistula. The patient is referred by and a written copy of my surgical consult recommendations will return to him. He has stage IV chronic kidney disease secondary to polycystic kidney disease. As of April 20, 2021 BUN is 55 with a creatinine of 4.03 and an estimated GFR of 16. White blood cell count was 8.3 with a hemoglobin 11.9 hematocrit 36.5 and platelet count 143,000 The patient is right arm dominant. Despite having coronary bypass surgery and coronary stents he continues to smoke cigarettes. He claims to be decreasing. He has polycystic kidney and liver disease. May 23, 2021 Reason For Study: Acute renal failure Right Arm Left Arm Right Cephalic Vein at the wrist measures Left Cephalic Vein at the wrist measures 0.38 x 0.39 cm. 0.34 x 0.34 cm. Right Cephalic Vein in the forearm measures Left Cephalic Vein in the forearm measures 0.34 x 0.33 cm. 0.38 x 0.37 cm. Right Cephalic Vein below antecub measures Cephalic mid forearm branch, 0.19 x 0.19 cm. 0.32 x 0.33 cm. Left Cephalic Vein below antecub measures Right Cephalic Vein above antecub measures 0.34 x 0.33 cm. 0.50 x 0.51 cm. Left Cephalic Vein above antecub measures Right Cephalic Vein mid bicep measures 0.46 0.43 x 0.42 cm. x 0.46 cm. Left Cephalic Vein at mid bicep measures Right Cephalic Vein at the shoulder measures 0.50 x 0.50 cm. 0.47 x 0.47 cm. Left Cephalic Vein at the shoulder measures Right Basilic Vein at the origin measures 0.48 x 0.48 cm. 0.49 x 0.48 cm. Basilic vein at origin measures 0.44 x 0.48 Right Basilic Vein mid bicep measures 0.58 x cm. 0.58 cm. Basilic vein at bicep measures 0.53 x 0.56 Right Basilic Vein above antecub measures cm. 0.71 x 0.75 cm. Basilic vein above antecub measures 0.41 x Right Brachial artery measures 0.51 x 0.51 0.43 cm. cm with a velcoity of 117.6 cm/sec. Left Brachial artery measures 0.54 x 0.52 cm Right Radial artery measures 0.36 x 0.36 cm with a velocity of 104.5 cm/sec. with a velocity of 144 cm/sec. Left Radial artery measures 0.34 x 0.34 cm with a velocity of 104.4 cm/sec. VL/Saphenous Vein Mapping, Bilat Interpretation Summary Patent and compressible bilateral upper extremity cephalic and basilic veins as noted. Generous diameters noted. Branch of the left mid forearm cephalic vein specifically noted Normal diameter and flow bilateral radial and brachial arteries Ordering Physician: Jose Culver Referring Physician: Marlo Pollard Performed By: Keysha Hein RVT ? 05/23/21 1632Date Jose Culver MD ROS General General: Yes weight change; No appetite, fatigue, colon cancer, breast cancer or weakness HEENT HEENT: No difficulty swallowing, eye injury, eye surgery, swollen glands or hoarseness Endo Endocrine: No thyroid disease, diabetes mellitus, thyroid cancer, Hair loss, heat intolerance or cold intolerance Musc Musculoskeletal: Yes back problems and arthritis; No rheumatoid arthritis, gout or joint pain Cardio Cardiovascular: Yes heart disease, high blood pressure, heart attack and heart stent; No murmur, pacemaker, atrial fibrillation, palpitations, shortness of breat with exertion or chest pain Psych Psychiatric: Yes depression and anxiety; No hearing voices Resp Respiratory: Yes shortness of breath, No sleep apnea, No cough, No COPD, No asthma, No emphysema and No wheezing Gastro Gastrointestinal: Yes abdominal pain, Yes nausea or vomiting, No diarrhea, No constipation, No blood in stool, Yes acid reflux, Yes hemorrhoids, No ulcers, No gallbladder problem and No black,tarry stools Real Hematologic: No blood thinners, No blood disorders, No bleeding, No anemia and No blood clots Neuro Neurologic: No weakness Exam Const General: cooperative, comfortable and no acute distress Nutritional Appearance: average body habitus Orientation: alert and awake [facility] Head: normal to inspection Eyes General: appearance normal, both eyes and all related structures Chest Other: Increased anterior posterior diameter Well-healed median sternotomy incision Resp Other: By basilar end inspiratory wheeze, reasonable effort, apices are clear Cardio Rate: regular rate Rhythm: regular rhythm GI Palpation: soft and no hepatosplenomegaly Musc Cervical Spine: normal cervical lordosis Neuro General: patient alert and patient awake Extrem General: no calf tenderness Psych Thought Process: normal COVID (Procedure Consent) Procedure Criteria Procedure Criteria: Yes Elective The surgeon/proceduralist and patient have discussed in detail the risk of exposure to and/or potential harm posed by the COVID-19 virus with having a surgery/procedure at this time versus the risk of delaying the surgery/procedure. It is not possible to know either the risk of delaying the surgery or procedure or chance of getting an infection with perfect accuracy, but a joint decision was made between the patient and the surgeon/proceduralist to proceed at this time with the scheduled surgery/procedure as indicated on the consent form. Assessment and Plan Assessment and Plan (1) Chronic renal failure, stage 4 (severe): Status: Chronic Plan - Dr. Jose Culver MD: Stage IV chronic renal failure. This is secondary to polycystic kidney disease. Despite having coronary artery disease with bypass surgery and stents he continues to smoke cigarettes. I have strongly advised the patient to cease. He is on a low-dose aspirin which would be appropriate for creating an AV fistula. His right arm dominant. I propose for him a left forearm radiocephalic arteriovenous fistula creation. I discussed with him technique, benefit, risk, alternatives. No guarantees of success have been offered. He has had an opportunity to ask and have questions answered. We will schedule procedure at his discretion. I appreciate the opportunity of assisting with the surgical care Copy: Dr. Fern Culver M.D., F.A.C.S. I have re-examined the patient. There are no clinical changes since date of exam. Jose Culver M.D., F.A.C.S.
--- NOTE | 2021-06-08 11:40 | EX.PCM.DISCH ---
Discharge Instructions Procedure Fistula Diet Discharge Diet: Renal Diet Activity Discharge Activity: May Not Drive (for 2-3 days or while taking narcotic pain medications.), May Shower and May Take a Tub Bath (in 5 days.) Lifting Restrictions: 5 pounds Keep extremity elevated above heart level: - (Keep arm elevated above the heart level for 3 days.) Dressing / Incision Call your doctor if your incision/area has: Continuous Slow Oozing, Sudden Increased Bleeding (apply pressure and call your doctor.), Increased Pain/ Swelling, Increased Redness and Foul Smelling Discharge Call your doctor if you observe: Fever of 101 or Higher Suture Line Care: Avoid Pulling/Pushing and Avoid Pinching/Bending Cleanse incision/area with: Keep Dressing Clean & Dry Additional Dressing/Incision Instructions:: Change or remove dressing in one day. May protect with a gauze bandaid. Follow Up Care Please Follow Up With: Jose Culver MD When: Call [phone] to make an appointment for suture removal and follow up in 1 week. Test Results: Test results from this visit will be discussed in further detail at your follow-up appointment, if applicable. Discharge Plan Admission Attending Provider: Jose Culver Primary Care Provider: Jg Pollard Discharge Orders/Prescriptions Prescriptions: No Action metoprolol tartrate 25 mg tablet 25 mg PO BID RF: 0 pravastatin 40 mg tablet 40 mg PO QHS RF: 0 ondansetron 4 mg tablet,disintegrating 4 mg PO BID PRN (Reason: Nausea) RF: 0 oxycodone 5 mg tablet 5 mg PO Q6H PRN (Reason: Pain) RF: 0 aspirin 81 mg tablet,delayed release (DR/EC) 81 mg PO DAILY RF: 0 cholecalciferol (vitamin D3) 125 mcg (5,000 unit) capsule 125 mcg PO DAILY RF: 0
[2021-06-08] MEDS: Bupivacaine Mpf 0.5% 30 ML VIAL (14:05)
[2021-06-08] MEDS: Heparin Injection (Vial) 5,000 UNIT/ML VIAL 5000 UNIT (14:05)
[2021-06-08] MEDS: Lidocaine 1% (30 ml sdv) 30 ML Vial (14:05)
--- NOTE | 2021-06-08 17:14 | OP.PCM_ITS ---
Problems Associated Problem List Diagnoses (1) Chronic renal failure, stage 4 (severe): Report of Operation Date of Procedure: 06/08/21 Pre-Operative Diagnosis: Stage IV chronic renal insufficiency Post-Operative Diagnosis: Same Surgery/Procedure Performed:: Left forearm radiocephalic hemodialysis fistula creation Description of Surgical Findings:: Timeout informed consent was obtained. 60-year-old gentleman was taken to the operating room placed upon the table. The left upper extremity was sterilely prepped and draped. Ultrasound mapping had been performed for the cephalic vein. I then used 1% lidocaine mixed 50-50 with 0.5% Marcaine. A total of approximately 8 cc was used. An oblique left radial wrist incision was created sharp blunt dissection was used to identify th e cephalic vein which was dissected free proximally and distally. It was ink marked on its anterior surface. Then sharp and blunt dissection was used to identify the radial artery. The patient received 8000 units of heparin intravenously. Peripheral vascular clamps were placed on the radial artery and 11 blade was used to make an arteriotomy which was extended with Gonzales scissors. The vein was spatulated to length and end-to-side venous to arterial anastomosis was created with running 7-0 Prolene. Good approximation was achieved with good hemostasis. There was good flow. I did use a single securing suture of 7-0 Prolene to assure that the vein would be in a nice smooth curvilinear fashion. The wound was closed with a deep layer of interrupted 3-0 Vicryl and then a running septic or 4-0 Monocryl. Steri-Strips Telfa tape dressings applied. Sponge and instrument and needle counts were reported to the surgeon be correct. Specimens none. Drains none. Blood loss minimal. Jose Culver M.D., F.A.C.S. Surgeon: Jose Culver Type of Anesthesia: Local MAC Anesthesiologist: Shana Navarro
== END 2021-06-08 16:58 | disposition home or self-care (01) ==
LOC: SDC 11:00 → AC 11:00
PROVIDERS: PCP Family Medicine; Referring Provider Surgery; Visit Provider Surgery
PROC: (CPT 36821; principal; 2021-06-08 12:45)
DX: I12.9 Hypertensive chronic kidney disease with stage 1 through stage 4 chronic kidney disease, or unspecified chronic kidney disease (principal); N18.4 Chronic kidney disease, stage 4 (severe); Q61.3 Polycystic kidney, unspecified; K21.9 Gastro-esophageal reflux disease without esophagitis; M19.90 Unspecified osteoarthritis, unspecified site; F17.210 Nicotine dependence, cigarettes, uncomplicated; E78.00 Pure hypercholesterolemia, unspecified; Z79.899 Other long term (current) drug therapy; Z95.1 Presence of aortocoronary bypass graft; Z95.5 Presence of coronary angioplasty implant and graft
CPT/HCPCS: 01844; 36821; 36415; 80048; 85027; 87426; 93005; C9803; J7040

== ENCOUNTER 2021-08-10 13:06 | Outpatient (CLI) | payer BC, SELFPAY ==
[2021-08-10 14:01] LABS: Protein, Urine (Random) 51.2 mg/dL (<11.9); Protein:Creat Ratio 556 mg/g CRE (0-200)
[2021-08-10 14:18] LABS: Anion Gap 4 (5-15); BUN 46 mg/dL (7-18); BUN/Creat Ratio 10.7 RATIO (10-20); Calcium,Total 9.1 mg/dL (8.5-10.1); Chloride 111 mmol/L (98-107); Creatinine, Serum 4.29 mg/dL (0.70-1.30); EST Glomerular Filtration Rate 15 mL/min (>60); Est Glom Filt Rate - Afr Amer 18 mL/min (>60); Glucose 91 mg/dL (74-106); Potassium 4.7 mmol/L (3.5-5.1); Sodium Level 140 mmol/L (136-145)
== END 2021-08-10 23:59 | disposition short-term general hospital (02) ==
PROVIDERS: PCP Family Medicine; Referring Provider Internal Medicine Nephrology; Visit Provider Internal Medicine Nephrology
DX: N18.4 Chronic kidney disease, stage 4 (severe) (principal)
CPT/HCPCS: 36415; 80048; 82570; 84156

== ENCOUNTER → 2021-11-19 | Outpatient (CLI) | payer BC, SELFPAY ==
[2021-11-19 12:39] LABS: Hematocrit 38.8 % (40-54); Hemoglobin 12.7 g/dL (13.0-16.5); Mean Corp Hgb Conc 32.7 g/dL (32-36); Mean Corpuscular Hgb 29.5 pg (27.0-32.0); Mean Platelet Vol. 10.1 fl (6.2-12.0); Platelet Count 146 K/mm3 (150-450); RBC Distribution Width CV 13.5 % (11.6-14.6); RBC Distribution Width SD 44.6 fl (35.1-43.9); Red Blood Count 4.31 M/mm3 (4.6-6.2); White Blood Count 6.9 K/mm3 (4.4-11.0)
[2021-11-19 12:51] LABS: Protein, Urine (Random) 61.4 mg/dL (<11.9); Protein:Creat Ratio 563 mg/g CRE (0-200)
[2021-11-19 13:09] LABS: PTHIN 148.8 pg/mL (18.4-80.1)
[2021-11-19 13:20] LABS: Albumin, Serum 3.3 g/dL (3.2-5.0); BUN 43 mg/dL (7-18); BUN/Creat Ratio 9.7 RATIO (10-20); Calcium,Total 8.9 mg/dL (8.5-10.1); Chloride 111 mmol/L (98-107); Creatinine, Serum 4.42 mg/dL (0.70-1.30); EST Glomerular Filtration Rate 15 mL/min (>60); Est Glom Filt Rate - Afr Amer 18 mL/min (>60); Glucose 92 mg/dL (74-106); Potassium 4.5 mmol/L (3.5-5.1); Sodium Level 137 mmol/L (136-145)
== END | disposition home or self-care (01) ==
LOC: LAB 11:52
PROVIDERS: PCP Family Medicine; Referring Provider Internal Medicine Nephrology; Visit Provider Internal Medicine Nephrology
DX: N18.4 Chronic kidney disease, stage 4 (severe) (principal); N25.81 Secondary hyperparathyroidism of renal origin; E55.9 Vitamin D deficiency, unspecified; Z13.0 Encounter for screening for diseases of the blood and blood-forming organs and certain disorders involving the immune mechanism
CPT/HCPCS: 36415; 80069; 82306; 82570; 83970; 84156; 85027

== ENCOUNTER → 2022-02-18 | Outpatient (CLI) | payer MEDICARE, SELFPAY ==
[2022-02-18 11:27] LABS: Hemoglobin 13.5 g/dL (13.0-16.5); Mean Corp Hgb Conc 32.9 g/dL (32-36); Mean Corpuscular Volume 91.1 fL (80-94); Mean Platelet Vol. 10.1 fl (6.2-12.0); Platelet Count 154 K/mm3 (150-450); RBC Distribution Width CV 13.2 % (11.6-14.6); RBC Distribution Width SD 44.1 fl (35.1-43.9); White Blood Count 9.9 K/mm3 (4.4-11.0)
[2022-02-18 11:39] LABS: Protein, Urine (Random) 54.1 mg/dL (<11.9); Protein:Creat Ratio 706 mg/g CRE (0-200)
[2022-02-18 12:02] LABS: PTHIN 181.6 pg/mL (18.4-80.1)
[2022-02-18 12:04] LABS: Albumin, Serum 3.3 g/dL (3.2-5.0); BUN 51 mg/dL (7-18); BUN/Creat Ratio 11.9 RATIO (10-20); Calcium,Total 8.6 mg/dL (8.5-10.1); Chloride 111 mmol/L (98-107); Creatinine, Serum 4.27 mg/dL (0.70-1.30); EST Glomerular Filtration Rate 15 mL/min (>60); Est Glom Filt Rate - Afr Amer 18 mL/min (>60); Glucose 99 mg/dL (74-106); Phosphorus 2.8 mg/dL (2.5-4.9); Potassium 4.6 mmol/L (3.5-5.1); Sodium Level 138 mmol/L (136-145)
[2022-02-18 12:07] LABS: Vitamin D,25 Hydroxy 57.9 ng/mL
== END | disposition home or self-care (01) ==
PROVIDERS: PCP Family Medicine; Referring Provider Internal Medicine Nephrology; Visit Provider Internal Medicine Nephrology
DX: N18.4 Chronic kidney disease, stage 4 (severe) (principal); E55.9 Vitamin D deficiency, unspecified
CPT/HCPCS: 36415; 80069; 82306; 82570; 83970; 84156; 85027

== ENCOUNTER → 2022-05-27 | Outpatient (CLI) | payer MEDICARE, SELFPAY ==
[2022-05-27 14:11] LABS: Hematocrit 38.5 % (40-54); Hemoglobin 13.1 g/dL (13.0-16.5); Mean Corpuscular Hgb 30.8 pg (27.0-32.0); Mean Corpuscular Volume 90.4 fL (80-94); Mean Platelet Vol. 10.6 fl (6.2-12.0); Platelet Count 128 K/mm3 (150-450); RBC Distribution Width CV 12.9 % (11.6-14.6); RBC Distribution Width SD 42.5 fl (35.1-43.9); Red Blood Count 4.26 M/mm3 (4.6-6.2); White Blood Count 7.7 K/mm3 (4.4-11.0)
[2022-05-27 14:18] LABS: Protein, Urine (Random) 76.9 mg/dL (<11.9); Protein:Creat Ratio 911 mg/g CRE (0-200)
[2022-05-27 14:43] LABS: PTHIN 216.6 pg/mL (18.4-80.1)
[2022-05-27 14:46] LABS: Vitamin D,25 Hydroxy 62.1 ng/mL
[2022-05-27 14:50] LABS: Albumin, Serum 3.4 g/dL (3.2-5.0); BUN 44 mg/dL (7-18); BUN/Creat Ratio 9.8 RATIO (10-20); Calcium,Total 8.9 mg/dL (8.5-10.1); Chloride 109 mmol/L (98-107); Creatinine, Serum 4.48 mg/dL (0.70-1.30); EST Glomerular Filtration Rate 14 mL/min (>60); Est Glom Filt Rate - Afr Amer 17 mL/min (>60); Glucose 102 mg/dL (74-106); Potassium 4.4 mmol/L (3.5-5.1); Sodium Level 141 mmol/L (136-145)
== END | disposition home or self-care (01) ==
LOC: LAB 13:25
PROVIDERS: PCP Family Medicine; Referring Provider Internal Medicine Nephrology; Visit Provider Internal Medicine Nephrology
DX: N18.4 Chronic kidney disease, stage 4 (severe) (principal); N25.81 Secondary hyperparathyroidism of renal origin; E78.2 Mixed hyperlipidemia; E55.9 Vitamin D deficiency, unspecified
CPT/HCPCS: 36415; 80069; 82306; 82570; 83970; 84156; 85027

== ENCOUNTER → 2022-09-17 | Outpatient (CLI) | payer MEDICARE, SELFPAY ==
[2022-09-17 13:32] LABS: Hematocrit 36.7 % (40-54); Hemoglobin 11.8 g/dL (13.0-16.5); Mean Corp Hgb Conc 32.2 g/dL (32-36); Mean Corpuscular Hgb 29.5 pg (27.0-32.0); Mean Corpuscular Volume 91.8 fL (80-94); Mean Platelet Vol. 10.5 fl (6.2-12.0); Platelet Count 121 K/mm3 (150-450); RBC Distribution Width CV 12.8 % (11.6-14.6); RBC Distribution Width SD 43.1 fl (35.1-43.9); White Blood Count 6.8 K/mm3 (4.4-11.0)
[2022-09-17 14:00] LABS: Protein, Urine (Random) 146.1 mg/dL (<11.9); Protein:Creat Ratio 2171 mg/g CRE (0-200)
[2022-09-17 14:16] LABS: PTHIN 327.7 pg/mL (18.4-80.1)
[2022-09-17 14:19] LABS: Vitamin D,25 Hydroxy 45.6 ng/mL
[2022-09-17 14:23] LABS: AST(SGOT) 11 U/L (15-37); Alanine Aminotransfer ALT/SGPT 14 U/L (16-61); Albumin, Serum 3.2 g/dL (3.2-5.0); Alkaline Phosphatase 68 U/L (45-117); Anion Gap 6 (5-15); BUN 54 mg/dL (7-18); BUN/Creat Ratio 9.7 RATIO (10-20); Bilirubin, Direct 0.18 mg/dL (0.00-0.30); Calcium,Total 8.6 mg/dL (8.5-10.1); Chloride 109 mmol/L (98-107); Creatinine, Serum 5.54 mg/dL (0.70-1.30); EST Glomerular Filtration Rate 11 mL/min (>60); Est Glom Filt Rate - Afr Amer 14 mL/min (>60); Globulin 3.5 g/dL (2.2-4.2); Glucose 96 mg/dL (74-106); Phosphorus 4.2 mg/dL (2.5-4.9); Potassium 4.9 mmol/L (3.5-5.1); Protein, Total 6.7 g/dL (6.4-8.2); Sodium Level 138 mmol/L (136-145)
== END | disposition home or self-care (01) ==
LOC: LAB 13:00
PROVIDERS: PCP Family Medicine; Visit Provider Internal Medicine Nephrology
DX: Q61.3 Polycystic kidney, unspecified (principal); N25.81 Secondary hyperparathyroidism of renal origin; E55.9 Vitamin D deficiency, unspecified
CPT/HCPCS: 36415; 80048; 80076; 82306; 82570; 83970; 84100; 84156; 85027

== ENCOUNTER → 2022-10-01 | Outpatient (CLI) | payer MEDICARE, SELFPAY ==
[2022-10-01 18:28] LABS: Hepatitis B Surface Antibody Non-Reactive; Hepatitis B Surface Antigen Non-Reactive (Nonreactive)
[2022-10-03 17:22] LABS: Hepatitis B Core Ab Total Negative (Negative)
== END | disposition home or self-care (01) ==
LOC: LAB 15:03
PROVIDERS: PCP Family Medicine; Referring Provider Internal Medicine Nephrology; Visit Provider Internal Medicine Nephrology
DX: N18.5 Chronic kidney disease, stage 5 (principal)
CPT/HCPCS: 36415; 86704; 86706; 87340

== ENCOUNTER 2024-10-31 01:57 | Inpatient (IN) | payer MEDICARE, SELFPAY ==
[2024-10-31] VITALS (12 sets, daily range): BP systolic 114–146; BP diastolic 69–86; PULSE 70–88; RESP 16–20; TEMP 36.5–37.2; O2SAT 85–97; BMI 22.7; BMI 22.2
--- NOTE | 2024-10-31 02:08 | EX.ED.DYSGE1 ---
HPI History of Present Illness Chief Complaint: General Illness Informant: patient Narrative Narrative: 64-year-old male states he has had productive cough congestion and some dyspnea last 5 days. His doctor started him on doxycycline. He has been taking that. States he started feel a bit better but in the last couple days he has been doing his home hemodialysis, and he has had twice where the machine shuts down when blood gets into the top of my dialyzer and then he cannot return all of the blood in the lines to his body and he loses it. He is concerned that he is feeling more tired now and is asking for his blood counts checked. He presents here at 2 AM for this and has no other complaints. [facility] Medical History Wears dentures Alcohol use Marijuana use History of renal disease Polycystic renal disease DVT (deep venous thrombosis) Easy bruising High cholesterol Back pain Syncope Heartburn Smoker Leg cramps History of pain when walking History of edema History of echocardiogram Cardiology follow-up encounter Hypertension Hemorrhoids, internal GERD (gastroesophageal reflux disease) Myocardial infarction HTN (hypertension) Osteoarthritis Anxiety and depression CAD (coronary artery disease) Chronic progressive renal failure, stage 4 (severe) Acute renal failure Home Medications ?Medication ?Instructions ?Recorded ?Last Taken ?Type aspirin 81 mg tablet,delayed 81 mg PO DAILY 05/29/21 Unknown History release cholecalciferol (vitamin D3) 125 125 mcg PO DAILY 05/29/21 Unknown History mcg (5,000 unit) capsule metoprolol tartrate 25 mg tablet 25 mg PO BID 05/29/21 Unknown History ondansetron 4 mg disintegrating 4 mg PO BID PRN Nausea 05/29/21 Unknown History tablet pravastatin 40 mg tablet 40 mg PO QHS 05/29/21 Unknown History Hydrocortisone 2.5%/lidocaine 5% #30 ea 10/13/24 Unknown Rx suppository (cmpd) (hydrocortisone 2.5%/lidocaine 5% suppository (compound)) amoxicillin 500 mg-potassium 1 tab PO QDAY #5 tabs 10/13/24 Unknown Rx clavulanate 125 mg tablet (Augmentin) hydrocortisone 2.5 % topical cream 1 applic NV QD-BID PRN hemorrhoids 10/13/24 Unknown Rx with perineal applicator #30 grams (Proctozone-HC) oxycodone 10 mg tablet 10 mg PO TID PRN 10/13/24 Unknown History vitamin B complex-vitamin C-folic 1 tab PO QDAY 10/13/24 Unknown History acid 0.8 mg tablet (Renal-Svetlana) peg 3350-electrolytes 236 4,000 ml PO ONCE #4,000 mL 10/27/24 Unknown Rx gram-22.74 gram-6.74 gram-5.86 gram solution Allergy/AdvReac Type Severity Reaction Status Date / Time atorvastatin (From Lipitor) AdvReac MUSCLE ACHE Verified 10/13/24 14:15 Family History (Updated 10/13/24 @ 14:13 by Nabila Parra) Father Cancer abdominal tumor--unsure type Brother Heart disease Sister Brain mass Surgical History History of arteriovenostomy for renal dialysis (~05/2021) Hx of left knee surgery History of esophagogastroduodenoscopy (EGD) Hx of cystoscopy History of cardiac catheterization History of coronary artery bypass graft History of heart artery stent Social History (Updated 10/13/24 @ 14:14 by Nabila Parra) Smoking Status: Current every day smoker tobacco type: cigarettes quit status: quit date established ROS ROS ED Constitutional Constitutional ED: Reports fatigue and malaise; Denies chills or fever(s) Eyes Eyes: Denies change in vision or diplopia ENT ENT ED: Denies rhinorrhea or sore throat Cardiovascular Cardiovascular: Denies chest pain, orthopnea or palpitations Respiratory/Chest Respiratory/Chest: Reports cough and dyspnea on exertion; Denies orthopnea Gastrointestinal Gastrointestinal: Reports other Details: Chronic nausea ; Denies abdominal pain, diarrhea or vomiting Musculoskeletal Musculoskeletal: Denies back pain or neck pain Integumentary Denies abscess or rash Neurologic Neurologic: Denies headache(s), paresthesias or weakness Psychiatric Psychiatric: Denies suicidal thoughts EXAM Physical Exam Const Vital Signs: 10/31/24 01:58 10/31/24 02:06 Temperature 98.9 F Temperature Source Oral Pulse Rate 88 Respiratory Rate 17 Respiratory Effort Short of Breath Respiratory Pattern Normal Blood Pressure 144/86 H Blood Pressure Mean 105 Pulse Ox 90 Oxygen Delivery Method Room Air Positive well nourished and well developed General Appearance ED: well developed and NAD HEENT Reports moist mucous membranes normocephalic and atraumatic Eyes PERRL and EOMs intact bilaterally Neck full ROM and supple Resp normal respiratory effort and clear to auscultation bilaterally Cardio regular rate, regular rhythm and no murmurs Rate: Negative for tachycardic GI non-tender and non-distended Auscultation: normoactive bowel sounds Palpation: soft Back/Spine General Back: other FROM Extremity normal to inspection Extremity Narrative: Good thrill left distal forearm fistula, no bleeding General Extremety ED: Negative for edema, pulses abnormal or tenderness General Extremity: Negative for edema or pulses abnormal Neuro oriented x3, CN's II-XII intact bilaterally and no sensory deficits noted Neuro Narrative: Normal gait Sensorium / Orientation: awake and alert Motor Exam: strength 5/5 throughout Psych Mood & Affect: anxious Skin no rashes or lesions noted and no wounds MDM MDM MDM Narrative Medical decision making narrative: Patient has a leukocytosis, reassured him about his blood counts with a hemoglobin of 14. Chronic renal failure noted. His pulse ox was 90% when he walked in, the rest of the vitals are normal, but while resting his oxygen saturations went down to 85%. He wears no oxygen at home. We put him on oxygen and he said that as a result he was feeling better than he has in the last several days. Two-view chest x-ray shows a right middle lobe pneumonia on my interpretation. Has been on doxycycline for 3 days now. Given his hypoxemia, I believe giving parenteral antibiotics and admitting to the hospital is warranted. Patient states with regards to hemodialysis, usually does it at home 4 days/week, usually does not do it on the weekends, his last treatment was about three quarters of a treatment yesterday, so even if we are unable to provide hemodialysis over the weekend, it being Friday morning he should be stable to be admitted here. Next dialysis he would typically do is sometime on Friday. Follows with nephrology Dr. Shirley. Lab Data Attestation: I reviewed the patient's lab results. Labs: Laboratory Results - last 24 hr 10/31/24 02:12 WBC 16.4 H RBC 4.57 L Hgb 14.4 Hct 40.9 MCV 89.5 MCH 31.5 MCHC 35.2 RDW Std Deviation 44.1 H RDW Coeff of Fito 13.5 Plt Count 197 MPV 9.7 Immature Gran % (Auto) 1.500 H Neut % (Auto) 85.8 H Lymph % (Auto) 5.3 L [place] % (Auto) 7.1 Eos % (Auto) 0.1 Baso % (Auto) 0.2 Absolute Neuts (auto) 14.1 H Absolute Lymphs (auto) 0.86 Nucleated RBC % 0 Sodium 132 L Potassium 3.3 Chloride 89 L Carbon Dioxide 25.2 Anion Gap 18 H BUN 48 H Creatinine 6.33 H Estim Creat Clear Calc 11.97 L Est GFR (MDRD) Non-Af 9 L BUN/Creatinine Ratio 7.6 L Glucose 132 H Calcium 9.1 Radiography Diagnostic Testing: Clinical Impression(s) from Imaging Studies Chest X-Ray 10/31/24 02:30 IMPRESSION: Findings concerning for right middle lobe pneumonia. Recommend continued radiologic follow-up to document resolution. Prior median sternotomy. Mild pulmonary hyperinflation. No sizable pleural effusion. Mild elevation right Reading Location: [facility] Management Discussion w/another healthcare provider: Hospitalist Discharge Plan Triage Chief Complaint: General Illness ED Provider: Jimy Jarquin Dx/Rx/DC Orders Clinical Impression: Pneumonia, Hypoxemia, Failure of outpatient treatment, ESRD on hemodialysis Prescriptions: No Action metoprolol tartrate 25 mg tablet 25 mg PO BID pravastatin 40 mg tablet 40 mg PO QHS ondansetron 4 mg tablet,disintegrating 4 mg PO BID PRN (Reason: Nausea) aspirin 81 mg tablet,delayed release (DR/EC) 81 mg PO DAILY cholecalciferol (vitamin D3) 125 mcg (5,000 unit) capsule 125 mcg PO DAILY Renal-Svetlana 0.8 mg tablet 1 tab PO QDAY oxycodone 10 mg tablet 10 mg PO TID PRN (DME) hydrocortisone 2.5%/lidocaine 5% suppository (compound) Suppository See Rx Instructions .ROUTE Qty: 30 1RF Rx Instructions: insert rectum twice daily hydrocortisone [Proctozone-HC] 2.5 % cream with perineal applicator 1 applic NV QD-BID PRN (Reason: hemorrhoids) Qty: 30 0RF amoxicillin-pot clavulanate [Augmentin] 500-125 mg tablet 1 tab PO QDAY Qty: 5 0RF Rx Instructions: Take once a day. Take after dialysis. peg 3350-electrolytes 236-22.74-6.74 -5.86 gram recon soln 4,000 ml PO ONCE Qty: 4000 0RF Rx Instructions: until fecal effluent is clear; do not exceed a total volume of 4000 mL Primary Care Provider: Jg Pollard Referrals: Jg Pollard DO [Primary Care Provider] - Print Language: Tuvaluan Disposition Disposition: Acute Care Hospital [facility]
[2024-10-31 02:22] LABS: Absolute Lymphocyte Count 0.86 X10^3/uL (0.83-4.51); Absolute Neutrophil Count 14.1 X10^3/uL (2.0-7.7); Basophil# 0.04 X10^3/uL; Basophil% 0.2 % (0-1); Eosinophil# 0.01 X10^3/uL; Eosinophils% 0.1 % (0-5); Hematocrit 40.9 % (40-54); Hemoglobin 14.4 g/dL (13.0-16.5); Lymphocyte # 0.86 X10^3/ul (0.83-4.51); Lymphocyte % 5.3 % (19-41); Mean Corp Hgb Conc 35.2 g/dL (32-36); Mean Corpuscular Hgb 31.5 pg (27.0-32.0); Mean Corpuscular Volume 89.5 fL (80-94); Mean Platelet Vol. 9.7 fl (6.2-12.0); Monocyte# 1.16 X10^3/uL; Monocyte% 7.1 % (0-10); NRBC Flagged by Analyzer 0 % (0-5); Neutrophil # 14.07 X10^3/uL (2.7-7.7); Neutrophil % 85.8 % (47-70); Platelet Count 197 K/mm3 (150-450); RBC Distribution Width CV 13.5 % (11.6-14.6); RBC Distribution Width SD 44.1 fl (35.1-43.9); Red Blood Count 4.57 M/mm3 (4.6-6.2); White Blood Count 16.4 K/mm3 (4.4-11.0)
--- NOTE | 2024-10-31 02:30 | RAD_ITS ---
PROCEDURE: PA and lateral chest radiographs, four views 10/31/2024 REASON FOR EXAM: Cough and shortness of breath TECHNIQUE: Frontal and lateral views of the chest. COMPARISON: None available FINDINGS: The bones are osteopenic with degenerative changes in the spine. Lungs are mildly hyperinflated. Sternotomy wires are present. No pneumothorax or pulmonary vascular congestion. Left lung is grossly clear. There is some patchy opacity at the right lung base, concerning for right middle lobe pneumonia. Hemidiaphragm. RAD/Chest PA and Lateral IMPRESSION: Findings concerning for right middle lobe pneumonia. Recommend continued radio logic follow-up to document resolution. Prior median sternotomy. Mild pulmonary hyperinflation. No sizable pleural effusion. Mild elevation right Reading Location: [facility]
[2024-10-31 03:05] LABS: Anion Gap 18 (5-15); BUN 48 mg/dL (4-19); BUN/Creat Ratio 7.6 RATIO (10-20); Calcium,Total 9.1 mg/dL (7.6-11.0); Carbon Dioxide 25.2 mmol/L (21.0-32.0); Chloride 89 mmol/L (98-108); Creatinine, Serum 6.33 mg/dL (0.70-1.20); EST Glomerular Filtration Rate 9 (>60); Estimated Creatinine Clearance 11.97 ml/min (50-250); Glucose 132 mg/dL (70-99); Potassium 3.3 mmol/L (3.3-5.1); Sodium Level 132 mmol/L (133-145)
--- NOTE | 2024-10-31 03:47 | HP.PCM.HOS_ITS ---
HPI - General General Date of Admission: 10/31/24 Date of Service: 10/31/24 Chief Complaint: Cough, congestion, dyspnea, recent outpatient abx. HPI Narrative The patient is a 64-year-old male with past medical history M w/ PMHx: PCKD w/ ESRD (T-F), CAD s/p PCI, HTN, HLD, GERD, Tobacco use, Hx VTE (DVT) who presents to the [facility] ED on 10/31/24 with congestion, fatigue, malaise, productive cough with worsening dyspnea over the last 5 days with recent outpatient PCP evaluation with initiation on doxycycline which has been taking with some mild improvement over the last couple days however he notes he has been attempting his home dialysis and unfortunately twice now the machine is shut down with his blood in the dialyzer unfortunately not returning the entire amount and has been concerned for worsened anemia prompting eventual ED evaluation. Workup in the ED included T98.9, heart rate 88, BP 144/86, respiratory rate 17, 90% room air-->85% dropped on room air, CBC with WBC 16.4, hemoglobin 14.4, platelet 187 with left shift, BMP with sodium 132, chloride 89, BUN/creatinine 48/6.33, glucose 132, chest x-ray with findings concerning for right middle lobe pneumonia, evidence of prior median sternotomy, mild pulmonary hyperinflation. In the ED patient ministered IV Zosyn therapy. [facility] Medical History (Updated 10/31/24 @ 04:[address] Elidia Cunningham MD) Tobacco use ESRD on hemodialysis (~10/31/24) Wears dentures Marijuana use Polycystic renal disease DVT (deep venous thrombosis) High cholesterol History of echocardiogram Cardiology follow-up encounter Hypertension Hemorrhoids, internal GERD (gastroesophageal reflux disease) Myocardial infarction HTN (hypertension) Osteoarthritis Anxiety and depression CAD (coronary artery disease) Home Medications ?Medication ?Instructions ?Recorded ?Last Taken ?Type aspirin 81 mg tablet,delayed 81 mg PO DAILY 05/29/21 U nknown History release cholecalciferol (vitamin D3) 125 125 mcg PO DAILY 09/17 Unknown History mcg (5,000 unit) capsule metoprolol tartrate 25 mg tablet 25 mg PO BID 05/29/21 Unknown History ondansetron 4 mg disintegrating 4 mg PO BID PRN Nausea 05/29/21 Unknown History tablet pravastatin 40 mg tablet 40 mg PO QHS 05/29/21 Unknow n History Hydrocortisone 2.5%/lidocaine 5% #30 ea 10/13/24 Unkno wn Rx suppository (cmpd) (hydrocortisone 2.5%/lidocaine 5% suppository (compound)) hydrocortisone 2.5 % topical cream 1 applic KY QD-BID PRN hemorrhoids 10/13/24 Unknown Rx with perineal applicator #30 grams (Proctozone-HC) oxycodone 10 mg tablet 10 mg PO TID PRN pain Unknown History vitamin B complex-vitamin C-folic 1 tab PO QDAY Unknown History acid 0.8 mg tablet (Renal-Svetlana) peg 3350-electrolytes 236 4,000 ml PO ONCE #4,000 mL 0 10/27/24 Unknown Rx gram-22.74 gram-6.74 gram-5.86 gram solution calcitriol 0.25 mcg capsule 0.25 mcg PO DAILY 10/31/24 Unknown History doxycycline monohydrate 100 mg 100 mg PO BID 10/31/24 Unknown History tablet lidocaine-prilocaine 2.5 %-2.5 % topical DAILY 5 Unknown History topical cream Allergy/AdvReac Type Severity Reaction Status Date / Time atorvastatin (From Lipitor) AdvReac MUSCLE ACHE Verified 10/13/24 14:15 Family History (Updated 10/31/24 @ 04:[address] Elidia Cunningham MD) Father Cancer abdominal tumor--unsure type Brother Heart disease Sister Brain mass Mother Brain aneurysm Surgical History History of arteriovenostomy for renal dialysis (~05/2021) Hx of left knee surgery History of esophagogastroduodenoscopy (EGD) Hx of cystoscopy History of cardiac catheterization History of coronary artery bypass graft History of heart artery stent Social History (Updated 10/31/24 @ 04:[address] Elidia Cunningham MD) household members: none Smoking Status: Current every day smoker tobacco type: cigarettes Smoking packs per day: 1 Smoking cigarettes per day: 20.0 quit status: considering quitting alcohol intake: former substance use type: does not use ROS ROS Narrative Admission Review of Systems: CONSTITUTIONAL: No weight loss, fever, chills, + weakness or fatigue. HEENT: + Congestion, rhinorrhea. Eyes: No visual loss, blurred vision, double vision or yellow sclerae. Ears, Nose, Throat: No hearing loss, sneezing, sore throat. SKIN: No rash or itching, lesions, wounds. CARDIOVASCULAR: No chest pain, chest pressure or chest discomfort, palpitations, edema, orthopnea, syncopal events. RESPIRATORY: + shortness of breath, cough with sputum. No wheezing, hemoptysis. GASTROINTESTINAL: + anorexia, nausea. No vomiting or diarrhea, abdominal pain, melena, BRBPR. GENITOURINARY: No dysuria, frequency, urgency or retention. NEUROLOGICAL: No headache, dizziness, syncope, paralysis, ataxia, numbness or tingling in the extremities, focal weakness, change in bowel or bladder control, seizure. MUSCULOSKELETAL: + muscle, back pain, joint pain or stiffness. HEMATOLOGIC: No anemia, bleeding or bruising. LYMPHATICS: No enlarged nodes. No history of splenectomy. PSYCHIATRIC: No history of depression or anxiety. ENDOCRINOLOGIC: No reports of sweating, cold or heat intolerance. No polyuria or polydipsia. ALLERGIES: No history of asthma, hives, eczema or rhinitis. Vital Signs Vital Signs Vital Signs: 10/31/24 01:58 10/31/24 02:06 10/31/24 02:14 Temperature 98.9 F Temperature Source Oral Pulse Rate 88 Respiratory Rate 17 Respiratory Effort Short of Breath Respiratory Pattern Normal Blood Pressure 144/86 H Blood Pressure Mean 105 Pulse Ox 90 85 Oxygen Delivery Method Room Air Room Air Oxygen Flow Rate (L/min) 10/31/24 03:45 Temperature 98.1 F Temperature Source Oral Pulse Rate 76 Respiratory Rate 16 Respiratory Effort Respiratory Pattern Blood Pressure 146/69 H Blood Pressure Mean 94 Pulse Ox 92 Oxygen Delivery Method Nasal Cannula Oxygen Flow Rate (L/min) 3 Weight Weight: 158 lb 4.67 oz Body Mass Index (BMI) 22.7 Physical Exam Narrative Physical Examination: General: Awake, alert, oriented x 3 and cooperative, seated upright in the ED bed, fatigued, ill-appearing. Skin: Normal color, normal turgor, no icterus, no cyanosis. HEENT: AT/NC, EOMI, PERRLA, MMM, no carotid bruits or JVD noted. Lungs: Diminished, greater bases, mildly decreased effort, no evidence of any distress, despite imaging no appreciated rales, ronchi or wheezing. Heart: Regular rate and rhythm; no gallop, rub audible. Abdomen: Soft, NTTP, ND, hyperactive BS, no appreciated HSM. Extremities: No cyanosis, clubbing, or edema, + left upper extremity with + AVF thrill. Neurological: Patient awake, alert, oriented as noted, cognitive function intact; pupils equally reactive to light and accommodation, cranial nerves grossly normal, moving all 4 extremities, no focal deficits, strength moderately globally decreased Psychiatric: Affect appears flat, fatigued, no acute evidence of depressive or anxiety feelings but does have underlying history. Results Lab / Micro Data 10/31/24 02:12 10/31/24 02:12 Labs: Laboratory Results - last 24 hr 10/31/24 02:12: WBC 16.4 H, RBC 4.57 L, Hgb 14.4, Hct 40.9, MCV 89.5, MCH 31.5, MCHC 35.2, RDW Std Deviation 44.1 H, RDW Coeff of Fito 13.5, Plt Count 197, MPV 9.7, Immature Gran % (Auto) 1.500 H, Neut % (Auto) 85.8 H, Lymph % (Auto) 5.3 L, [place] % (Auto) 7.1, Eos % (Auto) 0.1, Baso % (Auto) 0.2, Absolute Neuts (auto) 14.1 H, Absolute Lymphs (auto) 0.86, Nucleated RBC % 0, Sodium 132 L, Potassium 3.3, Chloride 89 L, Carbon Dioxide 25.2, Anion Gap 18 H, BUN 48 H, Creatinine 6.33 H, Estim Creat Clear Calc 11.97 L, Est GFR (MDRD) Non-Af 9 L, B UN/Creatinine Ratio 7.6 L, Glucose 132 H, Calcium 9.1 Imaging Radiology Impression Chest X-Ray 10/31/24 02:30 IMPRESSION: Findings concerning for right middle lobe pneumonia. Recommend continued radiologic follow-up to document resolution. Prior median sternotomy. Mild pulmonary hyperinflation. No sizable pleural effusion. Mild elevation right Reading Location: [facility] Assessment & Plan Assessment/Plan (1) Hypoxemia: (2) Pneumonia: (3) Failure of outpatient treatment: PLAN: Plan The patient is a 64-year-old male with past medical history M w/ PMHx: PCKD w/ ESRD, CAD s/p PCI, HTN, HLD, GERD, Tobacco use, Hx VTE (DVT) who presents to the [facility] ED on 10/31/24 with congestion, fatigue, malaise, productive cough with worsening dyspnea over the last 5 days with recent outpatient PCP evaluation with initiation on doxycycline which has been taking with some mild improvement over the last couple days however he has had increased dyspnea prompting evaluation. #1. Acute Hypoxia secondary to Acute right middle lobe pneumonia, failed outpatient abx therapy: Will admit to [facility], maintain on oxygen with wean as tolerated to room air, continue ATC duonebs, PRN albuterol, maintain on IV Zosyn given failed outpatient antibiotic therapy w/ MRSA screen requested to be cautious, HOB, IS parameters w/ pending sputum cultures, full respiratory viral panel and urine antigens. #2. PCKD with ESRD: Uses HD at home 4 days weekly, last usage just prior to presentation, following with Dr. Shirley. #3. CAD: Status post PCI and CABG x 4, continue aspirin, statin, metoprolol, not on DANIA inhibitor/ARB. #4. Hypertension: Continue home regimen including metoprolol, PRN hydralazine. #5. Hyperlipidemia: Continue patient on statin therapy. #6. GERD: Per current list not on regimen, will have as needed Mylanta. #7. History of VTE: Chart history with previous DVT, will maintain on chemoprophylaxis as noted. #8. Tobacco Abuse: Encouraged cessation, inpatient consultation per RT, NR if desired. #9. DVT prophylaxis: Heparin. #10. CODE status: Patient does not have healthcare power of felling machine operator or living will in place but he notes that he would want his ex- Nabila Triplett to be his medical decision-maker if necessary. Discussed CODE status at length including difference between FULL code, DNR-CCA and DNR-CC status. Following discussions about the differences in these status, requested Full Code status. Advanced Care Planning Face to Face Time: 16 minutes. Charges/Coding Visit Charges Inpatient E&M: 41259 Init Hosp L3 Procedures Hospitalists Procedures: 37252 Advncd Care Plan 30 Min
[2024-10-31] MEDS: Piperacil/Tazobactam 4.5 GM in 0.9% Normal Saline (100mL MB+) 100 ML IV (03:56)
[2024-10-31 04:26] LABS: Magnesium 1.8 mg/dL (1.5-2.2); Phosphorus 3.3 mg/dL (2.7-4.5)
[2024-10-31 08:08] LABS: Absolute Lymphocyte Count 0.93 X10^3/uL (0.83-4.51); Absolute Neutrophil Count 11.7 X10^3/uL (2.0-7.7); Basophil# 0.02 X10^3/uL; Basophil% 0.1 % (0-1); Eosinophil# 0.01 X10^3/uL; Eosinophils% 0.1 % (0-5); Hemoglobin 13.5 g/dL (13.0-16.5); Lymphocyte # 0.93 X10^3/ul (0.83-4.51); Lymphocyte % 6.7 % (19-41); Mean Corp Hgb Conc 34.6 g/dL (32-36); Mean Corpuscular Hgb 31.1 pg (27.0-32.0); Mean Corpuscular Volume 89.9 fL (80-94); Mean Platelet Vol. 9.6 fl (6.2-12.0); Monocyte# 1.01 X10^3/uL; Monocyte% 7.3 % (0-10); NRBC Flagged by Analyzer 0 % (0-5); Neutrophil % 84.6 % (47-70); Platelet Count 186 K/mm3 (150-450); RBC Distribution Width CV 13.4 % (11.6-14.6); RBC Distribution Width SD 44.4 fl (35.1-43.9); Red Blood Count 4.34 M/mm3 (4.6-6.2); White Blood Count 13.8 K/mm3 (4.4-11.0)
[2024-10-31 08:10] LABS: AST(SGOT) 24 U/L (<=37); Alanine Aminotransfer ALT/SGPT 22 U/L (<=46); Albumin, Serum 3.2 g/dL (3.4-4.8); Alkaline Phosphatase 67 U/L (40-129); Anion Gap 18 (5-15); BUN 52 mg/dL (4-19); BUN/Creat Ratio 7.9 RATIO (10-20); Carbon Dioxide 23.9 mmol/L (21.0-32.0); Chloride 90 mmol/L (98-108); Creatinine, Serum 6.59 mg/dL (0.70-1.20); EST Glomerular Filtration Rate 9 (>60); Estimated Creatinine Clearance 11.26 ml/min (50-250); Globulin 3.3 g/dL (2.2-4.2); Glucose 113 mg/dL (70-99); Potassium 3.2 mmol/L (3.3-5.1); Protein, Total 6.5 g/dL (5.9-8.4); Sodium Level 132 mmol/L (133-145); Total Bilirubin 0.83 mg/dL (0.00-1.30)
[2024-10-31] MEDS: Heparin Injection (Vial) 5,000 UNIT/ML VIAL 5000 UNIT SC ×2 (08:14→21:43)
[2024-10-31] MEDS: Calcitriol 0.25 MCG Capsule PO (08:14)
[2024-10-31] MEDS: Aspirin E.C. 81 MG Tablet PO (08:14)
[2024-10-31] MEDS: Metoprolol Tartrate 25 MG Tablet PO ×2 (08:14→21:43)
[2024-10-31] MEDS: oxyCODONE 5 MG Tablet 10 MG PO ×3 (08:16→17:32)
[2024-10-31] MEDS: guaiFENesin/D-Methorphan TAB.SR.12H 2 TABLET PO ×2 (10:24→21:44)
[2024-10-31] MEDS: Doxycycline 100 MG CAPSULE PO ×2 (10:24→21:43)
[2024-10-31] MEDS: Potassium Chloride Oral Tablet 20 MEQ 40 MEQ PO (10:24)
--- NOTE | 2024-10-31 11:48 | PCM.PN.BLA ---
Progress Note patient is known to me. ESRD on HHD. presented with dyspnea. dw Dr Lucero hospitalist. K is ok. bicarbonate is ok. CXR reviewed. Dr Lucero feels there might be some fluid component to dyspnea. called and left a message with dialysis nurse to see if any staffing available for dialysis run today. he has AVF. currently on 4L nasal cannula as per my discussion. if dyspnea gets worse and no staffing available may need to be transferred out.
[2024-10-31] MEDS: Ipratropium/Albuterol Sulfate 3 ML AMPUL.NEB INHALATION ×2 (13:08→19:35)
[2024-10-31] MEDS: Piperacil/Tazobactam 3.375 GM in 0.9% Normal Saline (50mL MB+) 50 ML IV (14:00)
--- NOTE | 2024-10-31 19:02 | PCM.HOSP.N ---
Hospitalist Note 64-year-old gentleman was admitted with productive cough, congestion, SOB for last 5 days. His PCP started on doxycycline and started feeling better. But he missed 4 days of dialysis and then dialyzed last 2 days before admission and found problem and blood return, blood loss, generalized weakness and feeling short of breath. Patient wears no oxygen at home. Pulse ox was 85% at rest and 90% on ambulation in ED patient. The patient has home dialysis 4 days a week and usually does not DO on weekends, last treatment was three quarters of dialysis yesterday. Follows Chest x-ray initially reviewed and shows haziness and underventilated in peripheral lung carballo and reported as finding concerning for RML pneumonia. Mild elevation of right hemidiaphragm Physical exam Lungs: Air entry diminished bilaterally and in lung bases. Bilateral basilar crepitations Heart: S1-S2 regular. Systolic murmur present Extremities: No significant leg swelling. Left forearm, AV fistula with palpable thrill and bruit MRSA nasal screen positive. Patient on IV Zosyn. Doxycycline added for MRSA positive nasal screen. Denies prior history of MRSA. Teasel Gig Operator consulted. On 3 L of oxygen. Did not have dialysis nurse today but I do not see an urgent need of dialysis today can be dialyzed early in the morning. Discussed with Dr. Shirlye Visit Charges Inpatient E&M: 18885 [facility] Hosp L1
[2024-10-31] MEDS: Lactobacillis Acidophilus 1 CAP PO (21:05)
[2024-10-31] MEDS: 0.9% Normal Saline (100mL Bag) 100 ML 15 ML IV (21:05)
[2024-10-31] MEDS: Pravastatin 40 MG Tablet PO (21:43)
[2024-11-01] VITALS (18 sets, daily range): BP systolic 122–209; BP diastolic 69–86; PULSE 68–84; RESP 14–20; TEMP 36.4–37.1; O2SAT 88–98; BMI 22.2
[2024-11-01 04:55] LABS: Absolute Lymphocyte Count 1.12 X10^3/uL (0.83-4.51); Absolute Neutrophil Count 7.8 X10^3/uL (2.0-7.7); Basophil# 0.03 X10^3/uL; Basophil% 0.3 % (0-1); Eosinophil# 0.11 X10^3/uL; Eosinophils% 1.1 % (0-5); Hematocrit 37.4 % (40-54); Hemoglobin 13.1 g/dL (13.0-16.5); Lymphocyte # 1.12 X10^3/ul (0.83-4.51); Lymphocyte % 11.3 % (19-41); Mean Corpuscular Hgb 31.6 pg (27.0-32.0); Mean Corpuscular Volume 90.3 fL (80-94); Mean Platelet Vol. 9.6 fl (6.2-12.0); Monocyte# 0.74 X10^3/uL; Monocyte% 7.5 % (0-10); NRBC Flagged by Analyzer 0 % (0-5); Neutrophil # 7.77 X10^3/uL (2.7-7.7); Neutrophil % 78.8 % (47-70); Platelet Count 188 K/mm3 (150-450); RBC Distribution Width CV 13.5 % (11.6-14.6); RBC Distribution Width SD 45.1 fl (35.1-43.9); Red Blood Count 4.14 M/mm3 (4.6-6.2); White Blood Count 9.9 K/mm3 (4.4-11.0)
[2024-11-01] MEDS: oxyCODONE 5 MG Tablet 10 MG PO ×3 (05:26→19:49)
[2024-11-01] MEDS: Lactobacillis Acidophilus 1 CAP PO ×3 (05:26→22:25)
[2024-11-01 06:00] LABS: Anion Gap 18 (5-15); BUN 63 mg/dL (4-19); BUN/Creat Ratio 8.2 RATIO (10-20); Calcium,Total 8.9 mg/dL (7.6-11.0); Carbon Dioxide 21.9 mmol/L (21.0-32.0); Chloride 92 mmol/L (98-108); Creatinine, Serum 7.59 mg/dL (0.70-1.20); EST Glomerular Filtration Rate 7 (>60); Estimated Creatinine Clearance 9.82 ml/min (50-250); Glucose 101 mg/dL (70-99); Potassium 3.4 mmol/L (3.3-5.1); Sodium Level 132 mmol/L (133-145)
[2024-11-01] MEDS: Ipratropium/Albuterol Sulfate 3 ML AMPUL.NEB INHALATION ×3 (07:35→20:26)
--- NOTE | 2024-11-01 07:50 | PN.HOSP_ITS ---
Reason for Visit Reason for Visit: Diagnoses Pneumonia, unspecified organism (10/31/24) Hypoxemia (10/31/24) Other specified health status (10/31/24) Subjective Subjective Dialysis line clotted off this AM on dialysis. Happened twice while on home dialysis. Objective Data Objective Data Vital Signs: Vital Signs Temp Pulse Resp BP Pulse Ox O2 Del Method O2 Flow Rate 36.6 C 78 20 H 122/72 H 98 Nasal Cannula 4 11/01/24 03:02 11/01/24 03:02 11/01/24 03:02 11/01/24 03:02 11/01/24 03:02 11/01/24 03:08 11/01/24 03:08 Oxygen Flow Rate (L/min) 4 Oxygen Delivery Method Nasal Cannula Weight: 70.6 kg Body Mass Index (BMI) 22.2 Intake & Output: Intake and Output for Last 24 Hours 10/30/24 10/31/24 11/01/24 23:59 23:59 23:59 Intake Total 250 / 550 500 / 500 Output Total 0 / 0 Balance 250 / 550 500 / 500 Medical Nutrition Assessment Dietitian: Malnutrition Criteria Met Start: 10/31/24 17:11 Freq: Status: Active Protocol: Document 10/31/24 17:11 RMA (Rec: 10/31/24 17:11 RMA [id number]) Nutrition Malnutrition Evidence of Yes Malnutrition Exists Malnutrition (severe Acute Illness/Injury ): Evidenced By Suboptimal Energy Intake (Severe),Weight Loss (Severe) Clinical Problem Acute Disease or Injury Related Malnutrition Etiology severe pro-damion malnutrition in the context of acute illness related to inadequate oral intake and inadequate energy intake Signs/Symptoms as evidenced by ~5-6% unintentional weight loss x past 1 month and PO meeting less than 75% of estimated nutrition needs x 1 month; BMI 22.2 Status Active Problem Recommendation Dietitian Will continue cardiac diet for now and restrict diet Recommendations/ for renal parameters as needed. Changes Will add 120mL PO Nepro 3 times per day w/ meals. Liberalize diet as needed to optimize oral intake. Lab / Micro Data 11/01/24 04:20 11/01/24 04:20 Labs: Laboratory Results - last 24 hr 10/31/24 06:55: WBC 13.8 H, RBC 4.34 L, Hgb 13.5, Hct 39.0 L, MCV 89.9, MCH 31.1, MCHC 34.6, RDW Std Deviation 44.4 H, RDW Coeff of Fito 13.4, Plt Count 186, MPV 9.6, Immature Gran % (Auto) 1.200 H, Neut % (Auto) 84.6 H, Lymph % (Auto) 6.7 L, [place] % (Auto) 7.3, Eos % (Auto) 0.1, Baso % (Auto) 0.1, Absolute Neuts (auto) 11.7 H, Absolute Lymphs (auto) 0.93, Nucleated RBC % 0, Sodium 132 L, P otassium 3.2 L, Chloride 90 L, Carbon Dioxide 23.9, Anion Gap 18 H, BUN 52 H, C reatinine 6.59 H, Estim Creat Clear Calc 11.26 L, Est GFR (MDRD) Non-Af 9 L, B UN/Creatinine Ratio 7.9 L, Glucose 113 H, Calcium 9.0, Total Bilirubin 0.83, AST 24, ALT 22, Alkaline Phosphatase 67, Total Protein 6.5, Albumin 3.2 L, Globulin 3.3, Albumin/Globulin Ratio 1.0 11/01/24 04:20: WBC 9.9, RBC 4.14 L, Hgb 13.1, Hct 37.4 L, MCV 90.3, MCH 31.6, MCHC 35.0, RDW Std Deviation 45.1 H, RDW Coeff of Fito 13.5, Plt Count 188, MPV 9.6, Immature Gran % (Auto) 1.000 H, Neut % (Auto) 78.8 H, Lymph % (Auto) 11.3 L , [place] % (Auto) 7.5, Eos % (Auto) 1.1, Baso % (Auto) 0.3, Absolute Neuts (auto) 7.8 H, Absolute Lymphs (auto) 1.12, Nucleated RBC % 0, Sodium 132 L, Potassium 3.4, Chloride 92 L, Carbon Dioxide 21.9, Anion Gap 18 H, BUN 63 H, Creatinine 7.59 H*, Estim Creat Clear Calc 9.82 L*, Est GFR (MDRD) Non-Af 7 L, B UN/Creatinine Ratio 8.2 L, Glucose 101 H, Calcium 8.9 Micro: Microbiology 10/31/24 12:05 Sputum, Expectorated/Coughed Gram Stain - Final 10/31/24 12:05 Urine, Clean Catch Legionella Antigen - Final 10/31/24 12:05 Urine, Clean Catch Streptococcus pneumoniae Antigen (M - Final 10/31/24 04:50 Nasal Secretion MRSA (PCR) - Final Meth. resistant Staph. aureus 10/31/24 04:41 Mucosa - Nasopharyngeal Respiratory Panel (PCR) - Final Physical Exam Const alert and no apparent distress HEENT head/scalp atraumatic and moist oral mucous membranes Resp normal respiratory effort, no retractions, no use of accessory muscles and clear to auscultation bilaterally Cardio regular rate, regular rhythm, S1 normal heart sound and S2 normal heart sound GI normal to inspection, nondistended, normoactive bowel sounds, soft to palpation, non-tender and non-distended Extremity normal to inspection Extremity Narrative: palpable and audible thrill in LUE fisutula. Assessment & Plan Assessment/Plan (1) Pneumonia: PLAN: SCx + MRSA. Start vancomycin (dc doxycycline) PLAN: Plan Diarrhea: stool studies pending ESRD: nephrology consult. Dialysis-dependent. Pt had issue with dialysis line today. [place] that the line clotted off due to no heparinization. No need for fistulagram at this time. VTE prophylaxis: SQ heparin. Charges/Coding Visit Charges Inpatient E&M: 35736 Subs Hosp L2
--- NOTE | 2024-11-01 08:49 | NUR.TO.PHY ---
received order from nephrology to remove @3L of fluid with dialysis. pt refused any fluid removal today stating I urinate, & am already under my dry weight. Pt educated that cxr demonstrates some fluid in lungs & pt is currently on O2/NC/2L. pt does not use O2 at home. pt acknowledges understanding, but still does not want any fluid removed. Formwork Carpenter made aware.
--- NOTE | 2024-11-01 09:30 | NURSING ---
pt accessed own fistula using 16g needle for dialysis.
--- NOTE | 2024-11-01 10:15 | CASEMGMT ---
NISHA SHAVER Assessment: Face to Face with pt for initial transition planning/care coordination assessment. NISHA SHAVER introduced self and role at [facility], pt voices understanding and consents to assessment. Pt is A&O x4 and answers all questions appropriately at this time. Pt sitting up in bed receiving dialysis with friend at bedside. Pt agreeable to assessment with friend present. Care providers, pharmacy, and demographics verified/updated. Admitting Dx: hypoxia, pna Strata Score: 2 PCP:Latrice Specialists:sonya Shirley Pharmacy: [facility] Insurance: [facility] Adv Prescription Benefit: yes LNOK: Sarah Delong, dtr; Benjamin Canela, son Living Arrangements: Pt lives 9 mos out of the year in a RV on the property where he lives the other 3 mos of the year. When he lives in the house he lives with ex , son and grandson. Pt states that his exwife allows him to do his dialysis in the house. Pt has electric to his RV but no water by choice. Pt denies concerns at home. Transportation: Pt drives self and denies concerns with transportation. DME:shower chair, built in grab bar in shower, crutches, rollator, cane HHC/SNF: Denies hx of Pt states no concerns with going home at time of dc. No therapy recommended. Pt states he does dialysis 4 days per week but does not have set days. Pt states that his machine is working properly. He states when he was home he had the heat up too high and the machine clotted the blood. He states this has happened before to him. Pt states no further concerns/needs. CM to follow. Advised pt to ask CM if any further questions/concerns/needs arise, voices understanding. Pt Goal: Home Plan: Home Leila CAMERON CM
[2024-11-01] MEDS: 0.9% Normal Saline 1,000 ML IV.SOLN. 1000 ML OPERA.SITE (10:35)
[2024-11-01] MEDS: PureFlow B 3K Dialysis Soln 1 BAG 6 BAG PF (10:36)
[2024-11-01] MEDS: Ceftriaxone 1 GM/50 ML BAG IV (12:05)
[2024-11-01] MEDS: guaiFENesin/D-Methorphan TAB.SR.12H 2 TABLET PO ×2 (12:05→22:25)
--- NOTE | 2024-11-01 12:05 | PCM.CONS.R ---
Assessment & Plan Assessment/Plan (1) ESRD (end stage renal disease): PLAN: Plan Patient has history of ESRD secondary to polycystic kidney disease and is on home hemodialysis 4 days weekly via AVF. Patient's last hemodialysis session was on Friday however this was partial session due to lines clotting during treatment. Patient will undergo hemodialysis today. Discussed fluid removal with patient, patient feels shortness of breath is related to pneumonia and feels he does not have any extra fluid on therefore asking no fluid removal with dialysis today. On exam patient does appear to be near euvolemic, he is now on room air. Likely EDW will be lowered as patient has lost body weight. Blood pressure is acceptable. Hemoglobin acceptable, at goal and does not need JACKSON with dialysis today. Patient is on IV antibiotics, ceftriaxone and receiving breathing treatments. Further orders forthcoming as hospitalization evolves. Assessment and plan reviewed with Dr. Shirley. HPI Consult Data Date of Consult: 11/01/24 HPI Narrative HPI Narrative: MARLO ADAMSON, is a 64 M who presented to the emergency room early yesterday morning with complaints of shortness of breath, cough and congestion. Admitted for pneumonia. Patient was admitted for acute hypoxic respiratory failure secondary to pneumonia. Nephrology consulted as patient has history of ESRD on home hemodialysis. Patient was seen in dialysis this morning, reports feeling better. His oxygenation improved and he is currently on room air. Patient denies any nausea or vomiting, he does state appetite was poor and he has lost weight. [facility] Medical History (Updated 11/01/24 @ 12:07 by ELIN Carroll) Tobacco use ESRD on hemodialysis (~10/31/24) Wears dentures Marijuana use Polycystic renal disease DVT (deep venous thrombosis) High cholesterol History of echocardiogram Cardiology follow-up encounter Hypertension Hemorrhoids, internal GERD (gastroesophageal reflux disease) Myocardial infarction HTN (hypertension) Osteoarthritis Anxiety and depression CAD (coronary artery disease) Home Medications ?Medication ?Instructions ?Recorded ?Last Taken ?Type aspirin 81 mg tablet,delayed 81 mg PO DAILY 05/29/21 Unknown History release cholecalciferol (vitamin D3) 125 125 mcg PO DAILY 05/29/21 Unknown History mcg (5,000 unit) capsule metoprolol tartrate 25 mg tablet 25 mg PO BID 05/29/21 Unknown History ondansetron 4 mg disintegrating 4 mg PO BID PRN Nausea 05/29/21 Unknown History tablet pravastatin 40 mg tablet 40 mg PO QHS 05/29/21 Unknown History Hydrocortisone 2.5%/lidocaine 5% #30 ea 10/13/24 Unknown Rx suppository (cmpd) (hydrocortisone 2.5%/lidocaine 5% suppository (compound)) hydrocortisone 2.5 % topical cream 1 applic ND QD-BID PRN hemorrhoids 10/13/24 Unknown Rx with perineal applicator #30 grams (Proctozone-HC) oxycodone 10 mg tablet 10 mg PO TID PRN pain 10/13/24 Unknown History vitamin B complex-vitamin C-folic 1 tab PO QDAY 10/13/24 Unknown History acid 0.8 mg tablet (Renal-Svetlana) peg 3350-electrolytes 236 4,000 ml PO ONCE #4,000 mL 10/27/24 Unknown Rx gram-22.74 gram-6.74 gram-5.86 gram solution calcitriol 0.25 mcg capsule 0.25 mcg PO DAILY 10/31/24 Unknown History doxycycline monohydrate 100 mg 100 mg PO BID 10/31/24 Unknown History tablet lidocaine-prilocaine 2.5 %-2.5 % topical DAILY 10/31/24 Unknown History topical cream Allergy/AdvReac Type Severity Reaction Status Date / Time atorvastatin (From Lipitor) AdvReac MUSCLE ACHE Verified 10/13/24 14:15 Family History (Updated 10/31/24 @ 04:[address] Elidia Cunningham MD) Father Cancer abdominal tumor--unsure type Brother Heart disease Sister Brain mass Mother Brain aneurysm Surgical History History of arteriovenostomy for renal dialysis (~05/2021) Hx of left knee surgery History of esophagogastroduodenoscopy (EGD) Hx of cystoscopy History of cardiac catheterization History of coronary artery bypass graft History of heart artery stent Social History (Updated 10/31/24 @ 04:[address] Elidia Cunningham MD) household members: none Smoking Status: Current every day smoker tobacco type: cigarettes Smoking packs per day: 1 Smoking cigarettes per day: 20.0 quit status: considering quitting alcohol intake: former substance use type: does not use ROS ROS Narrative As in HPI Physical Exam Narrative Alert and oriented x 3, no apparent distress S1, S2, RRR Lungs sound diminished. On room air. No rales or rhonchi Abdomen soft, nontender No edema Left forearm AV fistula accessed for hemodialysis Medical Records Data Medical Nutrition Assessment Dietitian: Malnutrition Criteria Met Start: 10/31/24 17:11 Freq: Status: Active Protocol: Document 10/31/24 17:11 RMA (Rec: 10/31/24 17:11 RMA [id number]) Nutrition Malnutrition Evidence of Yes Malnutrition Exists Malnutrition (severe Acute Illness/Injury ): Evidenced By Suboptimal Energy Intake (Severe),Weight Loss (Severe) Clinical Problem Acute Disease or Injury Related Malnutrition Etiology severe pro-damion malnutrition in the context of acute illness related to inadequate oral intake and inadequate energy intake Signs/Symptoms as evidenced by ~5-6% unintentional weight loss x past 1 month and PO meeting less than 75% of estimated nutrition needs x 1 month; BMI 22.2 Status Active Problem Recommendation Dietitian Will continue cardiac diet for now and restrict diet Recommendations/ for renal parameters as needed. Changes Will add 120mL PO Nepro 3 times per day w/ meals. Liberalize diet as needed to optimize oral intake. Lab / Micro Data 11/01/24 04:20 11/01/24 04:20 Labs: Laboratory Results - last 24 hr 11/01/24 04:20: WBC 9.9, RBC 4.14 L, Hgb 13.1, Hct 37.4 L, MCV 90.3, MCH 31.6, MCHC 35.0, RDW Std Deviation 45.1 H, RDW Coeff of Fito 13.5, Plt Count 188, MPV 9.6, Immature Gran % (Auto) 1.000 H, Neut % (Auto) 78.8 H, Lymph % (Auto) 11.3 L, [place] % (Auto) 7.5, Eos % (Auto) 1.1, Baso % (Auto) 0.3, Absolute Neuts (auto) 7.8 H, Absolute Lymphs (auto) 1.12, Nucleated RBC % 0, Sodium 132 L, Potassium 3.4, Chloride 92 L, Carbon Dioxide 21.9, Anion Gap 18 H, BUN 63 H, Creatinine 7.59 H*, Estim Creat Clear Calc 9.82 L*, Est GFR (MDRD) Non-Af 7 L, BUN/Creatinine Ratio 8.2 L, Glucose 101 H, Calcium 8.9 Micro: Microbiology 11/01/24 03:22 Stool Clostridioides difficile (PCR) - Final 11/01/24 03:22 Stool Stool Lactoferrin - Final 11/01/24 03:22 Stool Stool Occult Blood (PAULIE) - Final 10/31/24 12:05 Sputum, Expectorated/Coughed Gram Stain - Final 10/31/24 12:05 Urine, Clean Catch Legionella Antigen - Final 10/31/24 12:05 Urine, Clean Catch Streptococcus pneumoniae Antigen (M - Final 10/31/24 04:50 Nasal Secretion MRSA (PCR) - Final Meth. resistant Staph. aureus 10/31/24 04:41 Mucosa - Nasopharyngeal Respiratory Panel (PCR) - Final
[2024-11-01] MEDS: Aspirin E.C. 81 MG Tablet PO (12:06)
[2024-11-01] MEDS: Calcitriol 0.25 MCG Capsule PO (12:06)
[2024-11-01] MEDS: Heparin Injection (Vial) 5,000 UNIT/ML VIAL 5000 UNIT SC ×2 (12:06→22:24)
[2024-11-01] MEDS: Metoprolol Tartrate 25 MG Tablet PO ×2 (12:06→22:25)
--- NOTE | 2024-11-01 12:27 | NURSING ---
Delayed administration of medications on the morning of 11/01/24 d/t pt receiving dialysis.
[2024-11-01] MEDS: Vancomycin HCl 1,750 MG in 0.9% Normal Saline (500mL Bag) 500 ML 250 MG IV (12:49)
--- NOTE | 2024-11-01 13:10 | PCM.RX.CS ---
Consult Antibiotic Management Pharmacy has been consulted to manage selected antibiotic: Vancomycin Type of Intervention Type of Consult: New start Suspected Infection Suspected Infection: Pneumonia Prior Doses of Antibiotics Prior Doses of Antibiotics Received/Current Regimen: Vancomycin 1750 mg IV x 1 given 11/01/24 @ 1249 Labs Labs: Sodium 132 mmol/L (133-145) L 11/01/24 04:20 Potassium 3.4 mmol/L (3.3-5.1) 11/01/24 04:20 Chloride 92 mmol/L (98-108) L 11/01/24 04:20 Carbon Dioxide 21.9 mmol/L (21.0-32.0) 11/01/24 04:20 Anion Gap 18 (5-15) H 11/01/24 04:20 BUN 63 mg/dL (4-19) H 11/01/24 04:20 Creatinine 7.59 mg/dL (0.70-1.20) H* 11/01/24 04:20 Est GFR (MDRD) Non-Af 7 (>60) L 11/01/24 04:20 BUN/Creatinine Ratio 8.2 RATIO (10-20) L 11/01/24 04:20 Glucose 101 mg/dL (70-99) H 11/01/24 04:20 Microbiology Microbiology: Microbiology 11/01/24 03:22 Stool Stool Lactoferrin - Final 11/01/24 03:22 Stool Enteric Bacteriology - Final 11/01/24 03:22 Stool Stool Occult Blood (PAULIE) - Final 11/01/24 03:22 Stool Clostridioides difficile (PCR) - Final 10/31/24 12:05 Sputum, Expectorated/Coughed Gram Stain - Final 10/31/24 12:05 Urine, Clean Catch Legionella Antigen - Final 10/31/24 12:05 Urine, Clean Catch Streptococcus pneumoniae Antigen (M - Final 10/31/24 04:50 Nasal Secretion MRSA (PCR) - Final Meth. resistant Staph. aureus 10/31/24 04:41 Mucosa - Nasopharyngeal Respiratory Panel (PCR) - Final Dosing Weight Weight used for dosin kg Estimated Creatinine Clearance Estimated Creatinine Clearance: ESRD on HD Goal Trough Goal Trough: 15-20 mcg/mL Pharmacy Plan for Drug Dosing Pharmacy Plan for Drug Dosing: Vancomycin 1750 mg IV x 1, plan for 500 mg after next HD session (possibly Friday pending HD plan), then tentatively trough prior to HD on Friday Pharmacy Service will continue to monitor and adjust dosing as required. Follow-Up Labs Follow-Up Labs: Trough: Vancomycin Date/Time Labs Ordered Labs to be done on [date and time ordered]: pending HD schedule, 11/05 in AM?
[2024-11-01] MEDS: Ondansetron 4 MG/2 ML Vial IV (19:49)
[2024-11-01] MEDS: Pravastatin 40 MG Tablet PO (22:25)
[2024-11-02] VITALS (8 sets, daily range): BP systolic 126–144; BP diastolic 65–72; PULSE 67–81; RESP 16–18; TEMP 36.6–36.8; O2SAT 90–96
[2024-11-02] MEDS: oxyCODONE 5 MG Tablet 10 MG PO ×2 (05:28→11:10)
[2024-11-02] MEDS: Lactobacillis Acidophilus 1 CAP PO (05:28)
[2024-11-02] MEDS: Ipratropium/Albuterol Sulfate 3 ML AMPUL.NEB INHALATION ×2 (07:06→13:10)
--- NOTE | 2024-11-02 07:11 | PN.HOSP_ITS ---
Reason for Visit Reason for Visit: Diagnoses Pneumonia, unspecified organism (10/31/24) Hypoxemia (10/31/24) Other specified health status (10/31/24) Subjective Subjective Feels good. No new issues. Objective Data Objective Data Vital Signs: Vital Signs Temp Pulse Resp BP Pulse Ox O2 Del Method O2 Flow Rate 36.8 C 81 18 126/72 H 94 Nasal Cannula 2 11/02/24 03:40 11/02/24 03:40 11/02/24 03:40 11/02/24 03:40 11/02/24 03:40 11/02/24 03:44 11/02/24 03:44 Oxygen Flow Rate (L/min) 2 Oxygen Delivery Method Nasal Cannula Weight: 70.6 kg Body Mass Index (BMI) 22.2 Intake & Output: Intake and Output for Last 24 Hours 10/31/24 11/01/24 11/02/24 23:59 23:59 23:59 Intake Total 250 / 550 1685 / 1685 400 / 400 Output Total 0 / 0 200 / 200 200 / 200 Balance 250 / 550 1485 / 1485 200 / 200 Medical Nutrition Assessment Dietitian: Malnutrition Criteria Met Start: 10/31/24 17:11 Freq: Status: Active Protocol: Document 10/31/24 17:11 RMA (Rec: 10/31/24 17:11 RMA [id number]) Nutrition Malnutrition Evidence of Yes Malnutrition Exists Malnutrition (severe Acute Illness/Injury ): Evidenced By Suboptimal Energy Intake (Severe),Weight Loss (Severe) Clinical Problem Acute Disease or Injury Related Malnutrition Etiology severe pro-damion malnutrition in the context of acute illness related to inadequate oral intake and inadequate energy intake Signs/Symptoms as evidenced by ~5-6% unintentional weight loss x past 1 month and PO meeting less than 75% of estimated nutrition needs x 1 month; BMI 22.2 Status Active Problem Recommendation Dietitian Will continue cardiac diet for now and restrict diet Recommendations/ for renal parameters as needed. Changes Will add 120mL PO Nepro 3 times per day w/ meals. Liberalize diet as needed to optimize oral intake. Lab / Micro Data 11/02/24 07:12 11/02/24 07:12 Micro: Microbiology 11/01/24 03:22 Stool Stool Lactoferrin - Final 11/01/24 03:22 Stool Enteric Bacteriology - Final 11/01/24 03:22 Stool Stool Occult Blood (PAULIE) - Final 11/01/24 03:22 Stool Clostridioides difficile (PCR) - Final 10/31/24 12:05 Sputum, Expectorated/Coughed Gram Stain - Final 10/31/24 12:05 Urine, Clean Catch Legionella Antigen - Final 10/31/24 12:05 Urine, Clean Catch Streptococcus pneumoniae Antigen (M - Final 10/31/24 04:50 Nasal Secretion MRSA (PCR) - Final Meth. resistant Staph. aureus 10/31/24 04:41 Mucosa - Nasopharyngeal Respiratory Panel (PCR) - Final Physical Exam Const alert and no apparent distress HEENT head/scalp atraumatic and moist oral mucous membranes Resp normal respiratory effort, no retractions, no use of accessory muscles and clear to auscultation bilaterally Cardio regular rate, regular rhythm, S1 normal heart sound and S2 normal heart sound GI normal to inspection, nondistended, normoactive bowel sounds, soft to palpation and non-tender Assessment & Plan Assessment/Plan (1) Pneumonia: PLAN: MRSA pneumonia Sputum culture +MRSA. DC with linezolid PLAN: Plan Diarrhea: Cdiff and enteric panel negative. Fecal leukocytes +. ESRD: nephrology consult. Dialysis-dependent. Pt had issue with dialysis line today. [place] that the line clotted off due to no heparinization. No need for fistulagram at this time. DW Dr. Shirley who is going to try to get him heparin for home dialysis. He may also try to get him a fistulagram as outpt. VTE prophylaxis: SQ heparin.
[2024-11-02 07:59] LABS: Absolute Lymphocyte Count 0.96 X10^3/uL (0.83-4.51); Absolute Neutrophil Count 5.6 X10^3/uL (2.0-7.7); Basophil# 0.03 X10^3/uL; Basophil% 0.4 % (0-1); Eosinophil# 0.13 X10^3/uL; Eosinophils% 1.7 % (0-5); Hematocrit 36.8 % (40-54); Hemoglobin 12.4 g/dL (13.0-16.5); Lymphocyte # 0.96 X10^3/ul (0.83-4.51); Lymphocyte % 12.6 % (19-41); Mean Corp Hgb Conc 33.7 g/dL (32-36); Mean Corpuscular Hgb 31.1 pg (27.0-32.0); Mean Corpuscular Volume 92.2 fL (80-94); Mean Platelet Vol. 9.4 fl (6.2-12.0); Monocyte# 0.75 X10^3/uL; Monocyte% 9.8 % (0-10); NRBC Flagged by Analyzer 0 % (0-5); Neutrophil # 5.61 X10^3/uL (2.7-7.7); Neutrophil % 73.4 % (47-70); Platelet Count 218 K/mm3 (150-450); RBC Distribution Width CV 13.6 % (11.6-14.6); RBC Distribution Width SD 46.2 fl (35.1-43.9); Red Blood Count 3.99 M/mm3 (4.6-6.2); White Blood Count 7.6 K/mm3 (4.4-11.0)
[2024-11-02 08:30] LABS: Anion Gap 14 (5-15); BUN 41 mg/dL (4-19); Calcium,Total 8.9 mg/dL (7.6-11.0); Carbon Dioxide 20.8 mmol/L (21.0-32.0); Chloride 98 mmol/L (98-108); Creatinine, Serum 5.94 mg/dL (0.70-1.20); EST Glomerular Filtration Rate 10 (>60); Estimated Creatinine Clearance 12.55 ml/min (50-250); Glucose 88 mg/dL (70-99); Potassium 3.8 mmol/L (3.3-5.1); Sodium Level 134 mmol/L (133-145)
[2024-11-02] MEDS: Aspirin E.C. 81 MG Tablet PO (09:15)
[2024-11-02] MEDS: Metoprolol Tartrate 25 MG Tablet PO (09:16)
[2024-11-02] MEDS: guaiFENesin/D-Methorphan TAB.SR.12H 2 TABLET PO (09:17)
[2024-11-02] MEDS: Ceftriaxone 1 GM/50 ML BAG IV (09:17)
[2024-11-02] MEDS: Calcitriol 0.25 MCG Capsule PO (09:17)
[2024-11-02] MEDS: Senna/Docusate Sodium 1 Tablet 2 TABLET PO (09:19)
[2024-11-02] MEDS: Heparin Injection (Vial) 5,000 UNIT/ML VIAL 5000 UNIT SC (09:22)
--- NOTE | 2024-11-02 10:20 | CASEMGMT ---
Addendum entered by Kristina Grewal 11/02/24 12:21: TC to [facility] pharmacy, pt cost for linezolid is $4.90, no PA needed. Original Note: Pt does not qualify for home oxygen.
--- NOTE | 2024-11-02 11:24 | PCM.DC.SUM ---
Providers Date of Admission: 10/31/24 Primary Care Physician: Dr. Jg Pollard, DO Consultations 10/31/24 04:11 Consult: Nephrology Routine Consulting Provider: Ying Shirley Reason for Consult: ESRD on HD EMERGENT Consult: No MD Notified: Yes Date Notified: 10/31/24 Time Notified: 03:50 Method of Notification: Answering Service Reason For Visit: HYPOXIA, PNA Diagnosis Discharge Diagnosis (1) Pneumonia: Status: Acute Code(s): J18.9 - Pneumonia, unspecified organism Plan: MRSA pneumonia Sputum culture +MRSA. DC with linezolid Plan Diarrhea: Cdiff and enteric panel negative. Fecal leukocytes +. ESRD: nephrology consult. Dialysis-dependent. Pt had issue with dialysis line today. [place] that the line clotted off due to no heparinization. No need for fistulagram at this time. DW Dr. Shirley who is going to try to get him heparin for home dialysis. He may also try to get him a fistulagram as outpt. VTE prophylaxis: SQ heparin. Medications at Discharge Home Medications aspirin 81 mg tablet,delayed release 81 mg PO DAILY 05/29/21 cholecalciferol (vitamin D3) 125 mcg (5,000 unit) capsule 125 mcg PO DAILY 05/29/21 metoprolol tartrate 25 mg tablet 25 mg PO BID 05/29/21 pravastatin 40 mg tablet 40 mg PO QHS 05/29/21 Hydrocortisone 2.5%/lidocaine 5% suppository (cmpd) (hydrocortisone 2.5%/lidocaine 5% suppository (compound)) #30 ea 10/13/24 hydrocortisone 2.5 % topical cream with perineal applicator (Proctozone-HC) 1 applic [place] QD-BID PRN hemorrhoids #30 grams 10/13/24 oxycodone 10 mg tablet 10 mg PO TID PRN pain 10/13/24 vitamin B complex-vitamin C-folic acid 0.8 mg tablet (Renal-Svetlana) 1 tab PO QDAY 10/13/24 peg 3350-electrolytes 236 gram-22.74 gram-6.74 gram-5.86 gram solution 4,000 ml PO ONCE #4,000 mL 10/27/24 calcitriol 0.25 mcg capsule 0.25 mcg PO DAILY 10/31/24 lidocaine-prilocaine 2.5 %-2.5 % topical cream topical DAILY 10/31/24 guaifenesin 600 mg tablet, extended release 12 hr (Mucinex) 600 mg PO BID #10 tabs 11/02/24 linezolid 600 mg tablet 600 mg PO Q12H #10 tabs 11/02/24 Hospital Course Operations None Procedures Dialysis Summary of Care Provided Minutes Spent on Discharge: 32 Hospital Course: Pt presents with SOB. Found to have pneumonia, and sputum culture positive for MRSA. He was on vancomycin. He did receive dialysis here and his line clotted off. It had clotted off x2 at home (he does home dialysis). Seen by nephrology who advised running heparin with his dialysis and have arranged for it as outpt. Pt to be discharged with linezolid. Medical Records Data Medical Nutrition Assessment Dietitian: Malnutrition Criteria Met Start: 10/31/24 17:11 Freq: Status: Active Protocol: Document 10/31/24 17:11 RMA (Rec: 10/31/24 17:11 RMA [id number]) Nutrition Malnutrition Evidence of Yes Malnutrition Exists Malnutrition (severe Acute Illness/Injury ): Evidenced By Suboptimal Energy Intake (Severe),Weight Loss (Severe) Clinical Problem Acute Disease or Injury Related Malnutrition Etiology severe pro-damion malnutrition in the context of acute illness related to inadequate oral intake and inadequate energy intake Signs/Symptoms as evidenced by ~5-6% unintentional weight loss x past 1 month and PO meeting less than 75% of estimated nutrition needs x 1 month; BMI 22.2 Status Active Problem Recommendation Dietitian Will continue cardiac diet for now and restrict diet Recommendations/ for renal parameters as needed. Changes Will add 120mL PO Nepro 3 times per day w/ meals. Liberalize diet as needed to optimize oral intake. Weight / BMI Weight Weight: 70.6 kg Body Mass Index (BMI) 22.2 ABG / Lab / Microbiology Data 11/02/24 07:12 11/02/24 07:12 Laboratory: Laboratory Results - last 24 hr 11/02/24 07:12: WBC 7.6, RBC 3.99 L, Hgb 12.4 L, Hct 36.8 L, MCV 92.2, MCH 31.1, MCHC 33.7, RDW Std Deviation 46.2 H, RDW Coeff of Fito 13.6, Plt Count 218, MPV 9.4, Immature Gran % (Auto) 2.100 H, Neut % (Auto) 73.4 H, Lymph % (Auto) 12.6 L, [place] % (Auto) 9.8, Eos % (Auto) 1.7, Baso % (Auto) 0.4, Absolute Neuts (auto) 5.6, Absolute Lymphs (auto) 0.96, Nucleated RBC % 0, Sodium 134, Potassium 3.8, Chloride 98, Carbon Dioxide 20.8 L, Anion Gap 14, BUN 41 H, Creatinine 5.94 H, Estim Creat Clear Calc 12.55 L, Est GFR (MDRD) Non-Af 10 L, BUN/Creatinine Ratio 7.0 L, Glucose 88, Calcium 8.9 Microbiology: Microbiology 10/31/24 12:05 Sputum, Expectorated/Coughed Gram Stain - Final 10/31/24 12:05 Sputum, Expectorated/Coughed Respiratory Culture - Final Mixed normal respiratory jose enrique. No Streptococcus pneumoniae, beta-hemolytic Streptococcus or Staphylococcus aureus isolated. 11/01/24 03:22 Stool Stool Lactoferrin - Final 11/01/24 03:22 Stool Enteric Bacteriology - Final 11/01/24 03:22 Stool Stool Occult Blood (PAULIE) - Final 11/01/24 03:22 Stool Clostridioides difficile (PCR) - Final 10/31/24 12:05 Urine, Clean Catch Legionella Antigen - Final 10/31/24 12:05 Urine, Clean Catch Streptococcus pneumoniae Antigen (M - Final 10/31/24 04:50 Nasal Secretion MRSA (PCR) - Final Meth. resistant Staph. aureus 10/31/24 04:41 Mucosa - Nasopharyngeal Respiratory Panel (PCR) - Final D/C Instructions Discharge Diet: Renal Diet DC O2, CPAP, BIPAP Needs Home O2 Discharge instructions: No Meaningful Use Info Meaningful Use Meaningful Use Diagnoses (Choose all that apply): None applicable Ischemic Stroke Statin Dosing Therapy Reference: STATIN DOSE THERAPY REFERENCE: * Patients > 75 years receive moderate or high dose statin therapy. * Patients 75 years or YOUNGER should receive HIGH intensity statin dose unless contraindicated. You will be required to document reason for non-treatment if statin daily dose does not meet guidelines. HIGH DOSE STATIN THERAPY DAILY Atorvastatin > than or = to 40 mg Rosuvastatin > than or = to 20 mg Amlodipine + Atorvastatin > than or = to 2.5/40 mg Ezetimibe + Simvastatin 10/80 mg Simvastatin 80mg Discharge Plan Admission Admit Date/Time: 10/31/24 03:49 Primary Reason for Your Visit: pneumonia Attending Provider: Himanshu Almaguer Primary Care Provider: Jg Pollard Consulting Providers: Elidia Cunningham; Ying Shirley; Chirag Lucero Discharge Orders/Prescriptions Prescriptions: New guaifenesin [Mucinex] 600 mg tablet extended release 12hr 600 mg PO BID Qty: 10 0RF linezolid 600 mg tablet 600 mg PO Q12H Qty: 10 0RF Continued metoprolol tartrate 25 mg tablet 25 mg PO BID pravastatin 40 mg tablet 40 mg PO QHS aspirin 81 mg tablet,delayed release (DR/EC) 81 mg PO DAILY cholecalciferol (vitamin D3) 125 mcg (5,000 unit) capsule 125 mcg PO DAILY Renal-Svetlana 0.8 mg tablet 1 tab PO QDAY oxycodone 10 mg tablet 10 mg PO TID PRN (Reason: pain) (DME) hydrocortisone 2.5%/lidocaine 5% suppository (compound) Suppository See Rx Instructions .ROUTE Qty: 30 1RF Rx Instructions: insert rectum twice daily hydrocortisone [Proctozone-HC] 2.5 % cream with perineal applicator 1 applic TX QD-BID PRN (Reason: hemorrhoids) Qty: 30 0RF lidocaine-prilocaine 2.5-2.5 % cream topical DAILY calcitriol 0.25 mcg capsule 0.25 mcg PO DAILY peg 3350-electrolytes 236-22.74-6.74 -5.86 gram recon soln 4,000 ml PO ONCE Qty: 4000 0RF Rx Instructions: until fecal effluent is clear; do not exceed a total volume of 4000 mL Discontinued ondansetron 4 mg tablet,disintegrating 4 mg PO BID PRN (Reason: Nausea) doxycycline monohydrate 100 mg tablet 100 mg PO BID Referrals / Follow Up: Jg Pollard DO [Primary Care Provider] - Within 2 Weeks Disposition Disposition (needs filled in before D/C Order can be placed): Home, Self Care Charges/Coding Visit Charges Inpatient E&M: 56078 Disch Hosp >30min
--- NOTE | 2024-11-02 12:10 | NUR.TO.PHY ---
Dialysis Coordinator assessed pt LLA fistula today. Pt has had issues with clotting of filter at home & clotted filter near end of inpatient HD on 11/01. Fistula has strong/adequate bruit & thrill. pressures were noted to be wnl on machine on 11/01. Findings discussed with data management associate. Child Guidance Counselor will coordinate heparinization during home HD txs with [facility].
--- NOTE | 2024-11-02 12:16 | PCM.PN.REN ---
Subjective Subjective no new complaints Objective Data Objective Data Vital Signs: Vital Signs Temp Pulse Resp BP Pulse Ox O2 Del Method O2 Flow Rate 97.8 F 75 18 144/70 H 95 Room Air 2 11/02/24 08:10 11/02/24 09:16 11/02/24 08:10 11/02/24 09:16 11/02/24 08:35 11/02/24 08:35 11/02/24 03:44 Oxygen Flow Rate (L/min) 2 Oxygen Delivery Method Room Air Weight: 70.6 kg Body Mass Index (BMI) 22.2 Intake & Output: Intake and Output for Last 24 Hours 10/31/24 11/01/24 11/02/24 23:59 23:59 23:59 Intake Total 250 / 550 1685 / 1685 450 / 450 Output Total 0 / 0 200 / 200 200 / 200 Balance 250 / 550 1485 / 1485 250 / 250 Medical Nutrition Assessment Dietitian: Malnutrition Criteria Met Start: 10/31/24 17:11 Freq: Status: Active Protocol: Document 10/31/24 17:11 RMA (Rec: 10/31/24 17:11 RMA [id number]) Nutrition Malnutrition Evidence of Yes Malnutrition Exists Malnutrition (severe Acute Illness/Injury ): Evidenced By Suboptimal Energy Intake (Severe),Weight Loss (Severe) Clinical Problem Acute Disease or Injury Related Malnutrition Etiology severe pro-damion malnutrition in the context of acute illness related to inadequate oral intake and inadequate energy intake Signs/Symptoms as evidenced by ~5-6% unintentional weight loss x past 1 month and PO meeting less than 75% of estimated nutrition needs x 1 month; BMI 22.2 Status Active Problem Recommendation Dietitian Will continue cardiac diet for now and restrict diet Recommendations/ for renal parameters as needed. Changes Will add 120mL PO Nepro 3 times per day w/ meals. Liberalize diet as needed to optimize oral intake. Lab / Micro Data 11/02/24 07:12 11/02/24 07:12 Labs: Laboratory Results - last 24 hr 11/02/24 07:12: WBC 7.6, RBC 3.99 L, Hgb 12.4 L, Hct 36.8 L, MCV 92.2, MCH 31.1, MCHC 33.7, RDW Std Deviation 46.2 H, RDW Coeff of Fito 13.6, Plt Count 218, MPV 9.4, Immature Gran % (Auto) 2.100 H, Neut % (Auto) 73.4 H, Lymph % (Auto) 12.6 L, Kingfisher % (Auto) 9.8, Eos % (Auto) 1.7, Baso % (Auto) 0.4, Absolute Neuts (auto) 5.6, Absolute Lymphs (auto) 0.96, Nucleated RBC % 0, Sodium 134, Potassium 3.8, Chloride 98, Carbon Dioxide 20.8 L, Anion Gap 14, BUN 41 H, Creatinine 5.94 H, Estim Creat Clear Calc 12.55 L, Est GFR (MDRD) Non-Af 10 L, BUN/Creatinine Ratio 7.0 L, Glucose 88, Calcium 8.9 Micro: Microbiology 10/31/24 12:05 Sputum, Expectorated/Coughed Gram Stain - Final 10/31/24 12:05 Sputum, Expectorated/Coughed Respiratory Culture - Final Mixed normal respiratory jose enrique. No Streptococcus pneumoniae, beta-hemolytic Streptococcus or Staphylococcus aureus isolated. 11/01/24 03:22 Stool Stool Lactoferrin - Final 11/01/24 03:22 Stool Enteric Bacteriology - Final 11/01/24 03:22 Stool Stool Occult Blood (PAULIE) - Final 11/01/24 03:22 Stool Clostridioides difficile (PCR) - Final 10/31/24 12:05 Urine, Clean Catch Legionella Antigen - Final 10/31/24 12:05 Urine, Clean Catch Streptococcus pneumoniae Antigen (M - Final 10/31/24 04:50 Nasal Secretion MRSA (PCR) - Final Meth. resistant Staph. aureus 10/31/24 04:41 Mucosa - Nasopharyngeal Respiratory Panel (PCR) - Final Physical Exam Narrative Alert and oriented x 3, no apparent distress S1, S2, RRR Lungs sound diminished. On room air. No rales or rhonchi Abdomen soft, nontender No edema Left forearm AV fistula accessed for hemodialysis Assessment & Plan Assessment/Plan (1) ESRD (end stage renal disease): PLAN: Plan Patient has history of ESRD secondary to polycystic kidney disease and is on home hemodialysis 4 days weekly via AVF. received HD yesterday. looks ok. wants to go home. likely a little hypercoagulable in setting of infection. called and spoke to staff at dialysis unit. will use heparin with HD for couple weeks. if any further issues will arrange for a fistulogram. spoke to HD nurse. he ran ok until last 15 min or so. dw hospitalist
== END 2024-11-02 13:36 | disposition home or self-care (01) | DRG 177 ==
LOC: ED 03:44 → MS3 03:57
PROVIDERS: Internal Medicine; Admitting Provider Family Medicine; Emergency Provider Emergency Medicine; PCP Family Medicine
DX: J15.212 Pneumonia due to Methicillin resistant Staphylococcus aureus (principal); N18.6 End stage renal disease; E43 Unspecified severe protein-calorie malnutrition; I12.0 Hypertensive chronic kidney disease with stage 5 chronic kidney disease or end stage renal disease; K21.9 Gastro-esophageal reflux disease without esophagitis; I25.10 Atherosclerotic heart disease of native coronary artery without angina pectoris; Z99.2 Dependence on renal dialysis; F17.210 Nicotine dependence, cigarettes, uncomplicated; E78.00 Pure hypercholesterolemia, unspecified; Z91.158 Patient's noncompliance with renal dialysis for other reason; R09.02 Hypoxemia; Z79.82 Long term (current) use of aspirin; Z86.718 Personal history of other venous thrombosis and embolism; Z68.22 Body mass index [BMI] 22.0-22.9, adult; Z88.8 Allergy status to other drugs, medicaments and biological substances; Z79.891 Long term (current) use of opiate analgesic; Z79.02 Long term (current) use of antithrombotics/antiplatelets; Z79.899 Other long term (current) drug therapy
CPT/HCPCS: 36415; 71046; 80048; 80053; 82274; 83630; 83735; 84100; 85025; 87070; 87149; 87205; 87449; 87493; 87506; 87633; 87641; 90937; 94640; 94667; 94668; 97161; 97165; 97802; 99284; 99406; A4216; G0257; J2405

== ENCOUNTER 2024-12-22 06:11 | Day surgery (SDC) | payer MEDICARE, SELFPAY ==
--- NOTE | 2024-12-21 10:16 | PAT.ANE_ITS ---
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 When Was Last Pacemaker Check QUESTION #4 FULL TEXT: You/Your Family Experience fever (hyperthermia) with Anesthesia Last Oral Intake Last Oral intake: Last Oral Intake NPO since Meds taken in AM with sips of water? Meds patient instructed to take am of surgery PONV PONV - tour operator: PONV - tour operator Female No 12/21/24 09:34 HX of Motion Sickness No 12/21/24 09:34 HX of N/V After Surgery No 12/21/24 09:34 Non-Smoker No 12/21/24 09:34 Duration of Surgery greater No 12/21/24 09:34 than 60 minutes Number of Risk Factors PONV Score Height & Weight Height & Weight: Anesthesia: Height & Weight Height 5 ft 10 in 10/31/24 16:55 Respiratory Assessment Respiratory Assessment - tour operator: Respiratory Tract Infection Hx - tour operator Hx Respiratory Tract Infection No 12/21/24 09:34 STOP Sleep Apnea STOP Sleep Apnea - tour operator: STOP Sleep Apnea - tour operator Hx Hypertension Yes: FAIRLY CONTROLLED WITH 12/21/24 09:34 MED Hx Sleep Apnea No 12/21/24 09:34 CPAP BIPAP Do you snore loudly (louder No 12/21/24 09:34 than talking or can be heard Do you often feel tired/ Yes 12/21/24 09:34 fatigued/ sleepy during daytime? Has anyone observed you stop No 12/21/24 09:34 breathing during sleep? STOP Results Positive 12/21/24 09:34 QUESTION #5 FULL TEXT : Do you snore loudly (louder than talking or can be heard through closed doors)? 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 Specify any problems Hx of Preganancy in last 3 N/A 12/21/24 09:34 Months Nurse Filling Out Transfusion DSCHRIBER 12/21/24 09:34 & Questions: Date: 12/21/24 12/21/24 09:34 Time: 09:37 12/21/24 09:34 Patient unable to answer at this time (ie. confused, unrespo /Reproduction History /Reproductive History - tour operator: /Reproductive Hx- tour operator Hx Now No 12/21/24 09:34 Gestational Age (in weeks): EDC: Hx Hx Para Hx Section SAB No 12/21/24 09:34 PFSH Medical History (Updated 12/21/24 @ 09:47 by Destinee Del Valle) Wears glasses History of steroid therapy Arthritis Low iron Back pain Syncope Difficulty swallowing Heartburn Smoker Shortness of breath on exertion Leg cramps History of pain when walking History of edema MRSA (methicillin resistant staph aureus) culture positive ESRD (end stage renal disease) ESRD on hemodialysis (~10/31/24) Anal fistula Hemorrhoids, internal, with bleeding Wears dentures Marijuana use Polycystic renal disease DVT (deep venous thrombosis) High cholesterol History of echocardiogram Cardiology follow-up encounter Hypertension Hemorrhoids, internal Myocardial infarction HTN (hypertension) Osteoarthritis Anxiety and depression CAD (coronary artery disease) Home Medications ?Medication ?Instructions ?Recorded ?Last Taken ?Type aspirin 81 mg tablet,delayed 81 mg PO DAILY 05/29/21 0 12/17/24 History release cholecalciferol (vitamin D3) 125 125 mcg PO DAILY 09/17 Unknown History mcg (5,000 unit) capsule metoprolol tartrate 25 mg tablet 25 mg PO BID 05/29/21 Unknown History pravastatin 40 mg tablet 40 mg PO QHS 05/29/21 Unknow n History Hydrocortisone 2.5%/lidocaine 5% #30 ea 10/13/24 Unkno wn Rx suppository (cmpd) (hydrocortisone 2.5%/lidocaine 5% suppository (compound)) hydrocortisone 2.5 % topical cream 1 applic NV QD-BID PRN hemorrhoids 10/13/24 Unknown Rx with perineal applicator #30 grams (Proctozone-HC) oxycodone 10 mg tablet 10 mg PO TID PRN pain Unknown History vitamin B complex-vitamin C-folic 1 tab PO QDAY Unknown History acid 0.8 mg tablet (Renal-Svetlana) calcitriol 0.25 mcg capsule 0.25 mcg PO DAILY 10/31/24 Unknown History lidocaine-prilocaine 2.5 %-2.5 % 1 applic topical ALESHIA Y PRN SKIN 10/31/24 Unknown History topical cream ondansetron 4 mg disintegrating 4 mg PO Q4H PRN PRN na usea and 12/21/24 Unknown History tablet vomiting Allergy/AdvReac Type Severity Reaction Status Date / Time atorvastatin (From Lipitor) AdvReac MUSCLE ACHE Verified 12/21/24 09:31 Family History (Updated 10/31/24 @ 04:[address] Elidia Cunningham MD) Father Cancer abdominal tumor--unsure type Brother Heart disease Sister Brain mass Mother Brain aneurysm Surgical History (Updated 12/21/24 @ 09:47 by Destinee Del Valle) History of arteriovenostomy for renal dialysis (~05/2021) Hx of left knee surgery History of esophagogastroduodenoscopy (EGD) Hx of cystoscopy History of cardiac catheterization History of coronary artery bypass graft History of heart artery stent Social History (Updated 10/31/24 @ 04:[address] Elidia Cunningham MD) household members: none Smoking Status: Current every day smoker tobacco type: cigarettes quit status: considering quitting alcohol intake: former substance use type: does not use Audit: Pertinent Findings Pertinent Findings EKG Perinent findings: 06/07/2021. Sinus bradycardia at 54 bpm. Anterior infarct, age undetermined. Recommendation Anesthesia Recommendation Anesthesia recommendation: OPTIMIZED for anesthesia
[2024-12-22] VITALS (8 sets, daily range): BP systolic 100–114; BP diastolic 59–76; PULSE 63–70; RESP 16–18; TEMP 36.3–36.8; O2SAT 93–100; BMI 23.3
[2024-12-22] MEDS: 0.9% Normal Saline (500mL Bag) 500 ML 15 ML IV (06:41)
--- NOTE | 2024-12-22 07:08 | H&P.OPEN ---
HPI - General General Date of Service: 12/22/24 [facility] Narrative MARLO ADAMSON, is a 64 M who presents for colonoscopy. Patient states he still been expressing about 4 times a day clearish material from the area of the anal fistula/abscess. Patient is never had colonoscopy. Patient denies any family history of colon cancer. Office visit 10/13/2024 [facility] HPI: 64-year-old male presents due to hemorrhoid, anal fistula, colonoscopy. Patient does have past medical history for end-stage dialysis on home hemodialysis 4 days a week (Friday, Friday, , Friday) via right forearm fistula. Patient is interested in getting on the kidney transplant list and would need a colonoscopy and to deal with the hemorrhoids and possible fistula prior to that. Patient states about 2 years ago in July he was in bed for about 6 weeks and did notice a larger swelling near his anus about the size of an egg yolk. Patient had some clearish drainage from that and also has noticed hemorrhoid more recently and it seems like that the area of the swelling does track towards the hemorrhoid as what he can feel. Patient does admit to draining the hemorrhoid as well as the area of swelling by sterilizing the needle and poking it. Patient states he typically gets clear liquid I will initially bloody and then clear liquid out of both of them thus he thinks they are connected. Patient has not had to poke the area of the fistula recently as he is able to do his expressed an open hole. Patient denies any pain with this. Patient states he has had a hemorrhoid since he was a kid. Patient also states he has severe polycystic disease of his kidneys which she had previously been told he had largest kidneys some doctor has never ever seen. He he states he did have a CT at [facility] sometime in the past we will try to get that record. Patient has never had a colonoscopy, denies any family history of colon cancer. [facility] Medical History (Updated 12/22/24 @ 07:[address] Maria Ines Mckoy MD) Wears glasses History of steroid therapy Arthritis Low iron Back pain Syncope Difficulty swallowing Heartburn Smoker Shortness of breath on exertion Leg cramps History of pain when walking History of edema MRSA (methicillin resistant staph aureus) culture positive ESRD (end stage renal disease) ESRD on hemodialysis (~10/31/24) Anal fistula Hemorrhoids, internal, with bleeding Wears dentures Marijuana use Polycystic renal disease DVT (deep venous thrombosis) High cholesterol History of echocardiogram Cardiology follow-up encounter Hypertension Hemorrhoids, internal Myocardial infarction HTN (hypertension) Osteoarthritis Anxiety and depression CAD (coronary artery disease) Home Medications ?Medication ?Instructions ?Recorded ?Last Taken ?Type aspirin 81 mg tablet,delayed 81 mg PO DAILY 05/29/21 12/17/24 History release cholecalciferol (vitamin D3) 125 125 mcg PO DAILY 05/29/21 12/21/24 History mcg (5,000 unit) capsule metoprolol tartrate 25 mg tablet 25 mg PO BID 05/29/21 12/22/24 History pravastatin 40 mg tablet 40 mg PO QHS 05/29/21 12/20/24 History Hydrocortisone 2.5%/lidocaine 5% #30 ea 10/13/24 Unknown Rx suppository (cmpd) (hydrocortisone 2.5%/lidocaine 5% suppository (compound)) hydrocortisone 2.5 % topical cream 1 applic TN QD-BID PRN hemorrhoids 10/13/24 12/21/24 Rx with perineal applicator #30 grams (Proctozone-HC) oxycodone 10 mg tablet 10 mg PO TID PRN pain 10/13/24 12/21/24 History vitamin B complex-vitamin C-folic 1 tab PO QDAY 10/13/24 Unknown History acid 0.8 mg tablet (Renal-Svetlana) calcitriol 0.25 mcg capsule 0.25 mcg PO DAILY 10/31/24 12/21/24 History lidocaine-prilocaine 2.5 %-2.5 % 1 applic topical DAILY PRN SKIN 10/31/24 12/21/24 History topical cream ondansetron 4 mg disintegrating 4 mg PO Q4H PRN PRN nausea and 12/21/24 12/21/24 History tablet vomiting Allergy/AdvReac Type Severity Reaction Status Date / Time atorvastatin (From Lipitor) AdvReac MUSCLE ACHE Verified 12/22/24 06:31 Family History (Updated 10/31/24 @ 04:[address] Elidia Cunningham MD) Father Cancer abdominal tumor--unsure type Brother Heart disease Sister Brain mass Mother Brain aneurysm Surgical History (Updated 12/21/24 @ 09:47 by Destinee Del Valle) History of arteriovenostomy for renal dialysis (~05/2021) Hx of left knee surgery History of esophagogastroduodenoscopy (EGD) Hx of cystoscopy History of cardiac catheterization History of coronary artery bypass graft History of heart artery stent Social History (Updated 10/31/24 @ 04:[address] Elidia Cunningham MD) household members: none Smoking Status: Current every day smoker tobacco type: cigarettes quit status: considering quitting alcohol intake: former substance use type: does not use Past Medical/Surgical History Planned Operation Planned Operative Procedure(s): COLONOSCOPY Previous Hospitalizations/Surgeries HX Hospitalizations: Yes (10/2024 FLU/DIALYSIS ISSUES) Any Problems With Anesthesia: No You/Your Family Experience Fever (Hyperthermia) With Anes: No Cholinesterase deficiency: No Cardiovascular Hx Hypertension: Yes (FAIRLY CONTROLLED WITH MED) Respiratory Hx Sleep Apnea: No Hx Respiratory Tract Infection/Cold (presently): No Do You Snore Loudly (louder than talking or can be heard): No Do You Often Feel Tired/ Fatigued/ Sleepy Dring Daytime?: Yes Has Anyone Observed You Stop Breathing During Sleep?: No Result (for STOP score): Positive Smoking Status: Current every day smoker Neurological Does patient have nerve stimulator: No Reproduction : No Miscellaneous Recent Exposure to Contagious Disease: No Allergies atorvastatin (From Lipitor) Adverse Reaction (Verified 12/22/24 06:31) MUSCLE ACHE Discharge Is Pt Admitted From a Fdc, or a Senior Care: No After D/C, Where Do you Plan to Go: Return Home Vital Signs Vital Signs Vital Signs: 12/22/24 06:33 12/22/24 06:33 Temperature 98.3 F Temperature Source Temporal Pulse Rate 70 Respiratory Rate 16 Respiratory Pattern Normal Blood Pressure 114/76 Blood Pressure Mean 88 Blood Pressure Source Monitor Blood Pressure Position Semi-Fowlers Blood Pressure Location Right Arm Pulse Ox 93 Oxygen Delivery Method Room Air Weight Weight: 163 lb 2.273 oz Body Mass Index (BMI) 23.3 Physical Exam Const alert, oriented x3 and no apparent distress HEENT normocephalic and head/scalp atraumatic Resp normal respiratory effort Cardio regular rate GI soft to palpation and non-tender; Negative for non-distended Palpation: Negative for guarding Extremity Extremity Narrative: Left forearm fistula good thrill Skin no rashes or lesions noted Neuro CN's II-XII intact bilaterally Psych mental status grossly normal Assessment & Plan Assessment/Plan (1) Screening for colon cancer: (2) Hemorrhoids, internal, with bleeding: (3) Anal fistula: Surgery Risks - Colonoscopy I discussed with the patient the risks of the procedure: Yes Risks Include but are not Limited To: Risks include but are not limited to: Bleeding, perforation requiring further surgery, inability to complete colonoscopy requiring barium enema.
--- NOTE | 2024-12-22 07:21 | PRE.ANES_ITS ---
ASA Classification* ASA Classification ASA Classification: 3 Assessment & Plan Anesthesia* Anesthesia Assessment Anesthesia Assessment: Discussed sedation and/or anesthesia options, risks, benefits, and alternatives with patient/parents/legal guardian/POA. Questions invited. The patient/parents/legal guardian/POA seems to understand and agrees to proceed with anesthesia plan. Reviewed the physical assessment, medical history, allergy history and patient home medications list prior to surgery/procedure/anesthetic and documented any changes. Performed airway and anesthesia risk assessments. Anesthesia Type Anesthesia Type: MAC History Source History Obtained from:: Patient and Chart Anesthesia Focused Assessment* Temperature: 98.3 F Pulse Rate: 70 Blood Pressure: 114/76 Respiratory Rate: 16 Pulse Ox: 93 Oxygen Delivery Method: Room Air Airway Assessment Mouth opens: >3 cm Mallampati Score: I Neck Range of motion (ROM): Full ROM Comment: Edentulous Focused Labs Anesthesia Preop lab: CBC WBC 7.6 K/mm3 (4.4-11.0) 11/02/24 07:12 11/02/24 RBC 3.99 M/mm3 (4.6-6.2) L 11/02/24 07:12 11/02/24 Hgb 12.4 g/dL (13.0-16.5) L 11/02/24 07:12 5 Hct 36.8 % (40-54) L 11/02/24 07:12 11/02/24 Plt Count 218 K/mm3 (150-450) 11/02/24 07:12 11/02/24 CHEMISTRY Potassium 3.8 mmol/L (3.3-5.1) 11/02/24 07:12 11/02/24 Sodium 134 mmol/L (133-145) 11/02/24 07:12 11/02/24 Magnesium 1.8 mg/dL (1.5-2.2) 10/31/24 02:12 10/31/24 Phosphorus 3.3 mg/dL (2.7-4.5) 10/31/24 02:12 10/31/24 BUN 41 mg/dL (4-19) H 11/02/24 07:12 11/02/24 Creatinine 5.94 mg/dL (0.70-1.20) H 11/02/24 07:12 Glucose 88 mg/dL (70-99) 11/02/24 07:12 11/02/24 POC Glucose 139 mg/dL (70-110) H 11/16/19 09:54 11/16/19 TSH 1.17 uIU/mL (0.358-3.74) 04/01/17 12:59 COAG Pre-Assessment Diagnosis/Proposed Procedure Planned Operative Procedure(s): COLONOSCOPY Anesthesia History 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 When Was Last Pacemaker Check QUESTION #4 FULL TEXT: You/Your Family Experience fever (hyperthermia) with Anesthesia Last Oral Intake Last Oral intake: Last Oral Intake NPO since 00:00 12/22/24 06:33 Meds taken in AM with sips of Yes 12/22/24 06:33 water? Meds patient instructed to METOPROLOL 12/22/24 06:33 take am of surgery PONV PONV - document image technician: PONV - document image technician Female No 12/21/24 09:34 HX of Motion Sickness No 12/21/24 09:34 HX of N/V After Surgery No 12/21/24 09:34 Non-Smoker No 12/21/24 09:34 Duration of Surgery greater No 12/21/24 09:34 than 60 minutes Number of Risk Factors PONV Score Height & Weight Height & Weight: Anesthesia: Height & Weight Height 5 ft 10 in 12/22/24 06:33 Weight: 74 kg 12/22/24 06:33 Body Mass Index (BMI) 23.3 12/22/24 06:33 Respiratory Assessment Respiratory Assessment - document image technician: Respiratory Tract Infection Hx - document image technician Hx Respiratory Tract Infection No 12/22/24 07:09 STOP Sleep Apnea STOP Sleep Apnea - document image technician: STOP Sleep Apnea - document image technician Hx Hypertension Yes: FAIRLY CONTROLLED WITH 12/22/24 07:09 MED Hx Sleep Apnea No 12/22/24 07:09 CPAP BIPAP Do you snore loudly (louder No 12/22/24 07:09 than talking or can be heard Do you often feel tired/ Yes 12/22/24 07:09 fatigued/ sleepy during daytime? Has anyone observed you stop No 12/22/24 07:09 breathing during sleep? STOP Results Positive 12/22/24 07:17 QUESTION #5 FULL TEXT : Do you snore loudly (louder than talking or can be heard through closed doors)? 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 Specify any problems Hx of Preganancy in last 3 N/A 12/21/24 09:34 Months Nurse Filling Out Transfusion [email or web address] 12/21/24 09:34 & Questions: Date: 12/21/24 12/21/24 09:34 Time: 09:37 12/21/24 09:34 Patient unable to answer at this time (ie. confused, unrespo /Reproduction History /Reproductive History - document image technician: /Reproductive Hx- document image technician Hx Now No 12/22/24 07:09 Gestational Age (in weeks): EDC: Hx Hx Para Hx Section SAB No 12/21/24 09:34 Active Medications Active Medications: Current Medications Generic Name Dose Route Start Last Admin Trade Name Freq PRN Reason Stop Dose Admin Sodium Chloride 500 mls @ 0 mls/hr 12/22/24 06:45 12/22/24 06:41 IV 15 mls/hr .Q0M MARIJA Administration KVO PFSH Medical History Wears glasses History of steroid therapy Arthritis Low iron Back pain Syncope Difficulty swallowing Heartburn Smoker Shortness of breath on exertion Leg cramps History of pain when walking History of edema MRSA (methicillin resistant staph aureus) culture positive ESRD (end stage renal disease) ESRD on hemodialysis (~10/31/24) Anal fistula Hemorrhoids, internal, with bleeding Wears dentures Marijuana use Polycystic renal disease DVT (deep venous thrombosis) High cholesterol History of echocardiogram Cardiology follow-up encounter Hypertension Hemorrhoids, internal Myocardial infarction HTN (hypertension) Osteoarthritis Anxiety and depression CAD (coronary artery disease) Home Medications ?Medication ?Instructions ?Recorded ?Last Taken ?Type aspirin 81 mg tablet,delayed 81 mg PO DAILY 05/29/21 0 12/17/24 History release cholecalciferol (vitamin D3) 125 125 mcg PO DAILY 09/1712/21/24 History mcg (5,000 unit) capsule metoprolol tartrate 25 mg tablet 25 mg PO BID 05/29/21 12/22/24 History pravastatin 40 mg tablet 40 mg PO QHS 05/29/21 History Hydrocortisone 2.5%/lidocaine 5% #30 ea 10/13/24 Unkno wn Rx suppository (cmpd) (hydrocortisone 2.5%/lidocaine 5% suppository (compound)) hydrocortisone 2.5 % topical cream 1 applic NC QD-BID PRN hemorrhoids 10/13/24 12/21/24 Rx with perineal applicator #30 grams (Proctozone-HC) oxycodone 10 mg tablet 10 mg PO TID PRN pain 12/21/24 History vitamin B complex-vitamin C-folic 1 tab PO QDAY Unknown History acid 0.8 mg tablet (Renal-Svetlana) calcitriol 0.25 mcg capsule 0.25 mcg PO DAILY 10/31/24 12/21/24 History lidocaine-prilocaine 2.5 %-2.5 % 1 applic topical ALESHIA Y PRN SKIN 10/31/24 12/21/24 History topical cream ondansetron 4 mg disintegrating 4 mg PO Q4H PRN PRN na usea and 12/21/24 12/21/24 History tablet vomiting Allergy/AdvReac Type Severity Reaction Status Date / Time atorvastatin (From Lipitor) AdvReac MUSCLE ACHE Verified 12/22/24 06:31 Family History Father Cancer abdominal tumor--unsure type Brother Heart disease Sister Brain mass Mother Brain aneurysm Surgical History History of arteriovenostomy for renal dialysis (~05/2021) Hx of left knee surgery History of esophagogastroduodenoscopy (EGD) Hx of cystoscopy History of cardiac catheterization History of coronary artery bypass graft History of heart artery stent Social History household members: none Smoking Status: Current every day smoker tobacco type: cigarettes quit status: considering quitting alcohol intake: former substance use type: does not use Review of Systems (Anesthesia) ROS Narrative System reviewed and no additional complaints, except as documented.
--- NOTE | 2024-12-22 07:30 | COLBX_PTH ---
PATIENT: MARLO ADAMSON LOC: [facility] U#:[id number] AGE/SX: 64/M ROOM: RE12/22/[address]: Dr. Maria Ines Mckoy MD : 1960 BED: DIS: 12/22/2024 SPEC #: [id number] RECD: 12/22/24 11:13 STATUS: MARIKA VERNA #: [id number] PERI: 12/22/24 07:[address]: Maria Ines Mckoy DEPT: SURGICAL PATHOLOGY RECD BY: Rafa Gipson ENTERED: 12/22/24 11:33 SP TYPE: COLON BX OTHR DR: Dr. Marlo Pollard DO Tissues: A - Ascending colon Procedures: Surgery Specimen Level IV HEADER OPERATION: Colonoscopy and polypectomy PRE-OP DIAGNOSIS: Screening, hemorrhoids, anal fistula TISSUE SUBMITTED: A- Ascending colon polyp MICROSCOPIC DIAGNOSIS A. Ascending colon, polyp, biopsy: Sessile serrated lesion. MICROSCOPIC DESCRIPTION Slides are reviewed. GROSS DESCRIPTION A. Received in formalin in a container labeled with the patient's name, date of , and ascending colon polyp is a 0.6 x 0.5 x 0.4 cm walden-pink and polypoid piece of mucosal tissue. The resection margin is inked black, and it is bisected. Submitted entirely in A1. [facility] 12-22-2024 CPT:34845
--- NOTE | 2024-12-22 08:42 | PCM.POST.ANE ---
Anesthesia: Postop Eval I Current Vital Signs Temperature: 97.8 F Pulse Rate: 63 Blood Pressure: 101/68 Respiratory Rate: 16 Pulse Ox: 100 Oxygen Delivery Method: Room Air Assessment Airway patent: Yes Spontaneous unlabored respirations: Yes Mental status: Asleep nausea: No Vomiting: No Anesthesia Complication: No Fluid Hydration Crystalloid volume administer (ml): 200 Total IV fluid infused: 200 Progress Note Anesthesia document: Postop Eval 1 completed: Yes
--- NOTE | 2024-12-22 08:45 | OP.CCLET_ITS ---
12/22/2024 Jg Pollard [address] [place] [address] Re : Colonoscopy procedure for Jg Force Dear Dr. Pollard This procedure was performed on Sunday, December 22, 2024. My impressions and recommendations are as follows: Impressions : - Non-bleeding external and internal hemorrhoids. - One less than 5 mm polyp in the ascending colon, removed with a hot snare. Resected and retrieved. - Diverticulosis in the sigmoid colon and in the descending colon. - Likely anal fistula exterior opening at about 10:00 left side with some induration no erythema, unable to appreciate the internal opening Recommendations : - Discharge patient to home. - High fiber diet. - Continue present medications. - Await pathology results. - Repeat colonoscopy in 5 years for surveillance based on pathology results. My findings are described in the full procedure note, which is enclosed. If I can be of further assistance, please feel free to contact me at Doctor phone number(s): , Work: . Sincerely, MD Maria Ines Patiño MD 12/22/2024 8:44:55 AM This report has been signed electronically.
--- NOTE | 2024-12-22 08:45 | OP.COLON_ITS ---
Patient Name: Jg Canela Procedure Date: 12/22/2024 8:03 AM Date of : 1960 Age: 64 Procedure: Colonoscopy Indications: Screening for colorectal malignant neoplasm Providers: Maria Ines Mckoy MD Medicines: Monitored Anesthesia Care Patient Profile: This is a 64 year old male. Last Colonoscopy: none. The patient's first colonoscopy is today. Complications: No immediate complications. Procedure: Pre-Anesthesia Assessment: - Prior to the procedure, a History and Physical was performed, and patient medications and allergies were reviewed. The patient's tolerance of previous anesthesia was also reviewed. The risks and benefits of the procedure and the sedation options and risks were discussed with the patient. All questions were answered, and informed consent was obtained. Prior Anticoagulants: The patient has taken no anticoagulant or antiplatelet agents. ASA Grade Assessment: Per anesthesia. After reviewing the risks and benefits, the patient was deemed in satisfactory condition to undergo the procedure. After I obtained informed consent, the scope was passed under direct vision. Throughout the procedure, the patient's blood pressure, pulse, and oxygen saturations were monitored continuously. The Colonoscope was introduced through the anus and advanced to the cecum, identified by the appendiceal orifice, ileocecal valve and palpation. The colonoscopy was performed without difficulty. The patient tolerated the procedure well. The quality of the bowel preparation was good. Scope In: 8:11:49 AM Scope Withdrawal Time 0 hours 10 minutes 53 seconds Scope Out: 8:28:06 AM Total Procedure Duration Time 0 hours 16 minutes 17 seconds Findings: Non-bleeding external and internal hemorrhoids were found. The hemorrhoids were small and Grade III (internal hemorrhoids that prolapse but require manual reduction). A less than 5 mm polyp was found in the ascending colon. The polyp was semi-pedunculated. The polyp was removed with a hot snare. Resection and retrieval were complete. Multiple small-mouthed diverticula were found in the sigmoid colon and descending colon. At about 10:00 on the left side???perianal- indurated tissue with a small opening no active drainage, no obvious tract seen inside the rectum or felt on exam Impression: - Non-bleeding external and internal hemorrhoids. - One less than 5 mm polyp in the ascending colon, removed with a hot snare. Resected and retrieved. - Diverticulosis in the sigmoid colon and in the descending colon. - Likely anal fistula exterior opening at about 10:00 left side with some induration no erythema, unable to appreciate the internal opening Recommendation: - Discharge patient to home. - High fiber diet. - Continue present medications. - Await pathology results. - Repeat colonoscopy in 5 years for surveillance based on pathology results. Procedure Code(s): --- Professional --- 94516, PT, Colonoscopy, flexible; with removal of tumor(s), polyp(s), or other lesion(s) by snare technique Diagnosis Code(s): --- Professional --- Z12.11, Encounter for screening for malignant neoplasm of colon K64.2, Third degree hemorrhoids D12.2, Benign neoplasm of ascending colon K57.30, Diverticulosis of large intestine without perforation or abscess without bleeding CPT copyright 2021 [employer]. All rights reserved. The codes documented in this report are preliminary and upon collar cutter review may be revised to meet current compliance requirements. MD Maria Ines Patiño MD 12/22/2024 8:44:55 AM This report has been signed electronically. Number of Addenda: 0 Note Initiated On: 12/22/2024 8:03 AM
--- NOTE | 2024-12-22 10:01 | PCM.POSTANE2 ---
Anesthesia Postop Eval I Sum Postop Eval Completion status Anesthesia document: Postop Eval 1 completed: Yes Anesthesia Postop Eval I Summary Anesthesia Postop Eval I Summary: Anesthesia Postop Eval I: Assessment Summary Airway patent Yes 12/22/24 08:43 [email or web address] Spontaneous unlabored Yes 12/22/24 08:43 [email or web address] respirations Mental status Asleep 12/22/24 08:43 [email or web address] nausea No 12/22/24 08:43 [email or web address] Vomiting No 12/22/24 08:43 [email or web address] Anesthesia Postop Eval I: Fluid Summary Crystalloid volume administer 200 12/22/24 08:43 [email or web address] (ml) Colloids volume administered ( ml) Blood Product volume administered (ml) Total IV fluid infused 200 12/22/24 08:43 [email or web address] Anesthesia Postop Eval I: Summary Notes Anesthesia Complication No 12/22/24 08:43 [email or web address] Anesthesia Complication Comment: Post-operative progress note Anesthesia: Postop Eval II Evaluation Mental status: Awake and Calm Pain Level: 0 nausea: No Vomiting: No Complications Anesthesia Complication: No
== END 2024-12-22 09:24 | disposition home or self-care (01) ==
LOC: EN 06:16 → AC 06:17
PROVIDERS: PCP Family Medicine; Referring Provider Family Medicine; Visit Provider Surgery
PROC: 0DJD8ZZ Inspection of Lower Intestinal Tract, Via Natural or Artificial Opening Endoscopic (ICD-10-PCS; CPT 45378; principal; 2024-12-22 07:25)
DX: Z12.11 Encounter for screening for malignant neoplasm of colon (principal); N18.6 End stage renal disease; I12.0 Hypertensive chronic kidney disease with stage 5 chronic kidney disease or end stage renal disease; K57.30 Diverticulosis of large intestine without perforation or abscess without bleeding; D12.2 Benign neoplasm of ascending colon; F17.210 Nicotine dependence, cigarettes, uncomplicated; K64.2 Third degree hemorrhoids; K61.0 Anal abscess; I25.10 Atherosclerotic heart disease of native coronary artery without angina pectoris; E78.00 Pure hypercholesterolemia, unspecified; Z99.2 Dependence on renal dialysis; Z79.899 Other long term (current) drug therapy
CPT/HCPCS: 45385; 88305; J2405

== ENCOUNTER 2025-01-21 09:48 | Day surgery (SDC) | payer MEDICARE, SELFPAY ==
--- NOTE | 2025-01-07 11:49 | PAT.ANE_ITS ---
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 When Was Last Pacemaker Check QUESTION #4 FULL TEXT: You/Your Family Experience fever (hyperthermia) with Anesthesia Last Oral Intake Last Oral intake: Last Oral Intake NPO since Meds taken in AM with sips of water? 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 - computer network and systems engineer Female No 01/07/25 09:36 HX of Motion Sickness No 01/07/25 09:36 HX of N/V After Surgery No 01/07/25 09:36 Non-Smoker No 01/07/25 09:36 Duration of Surgery greater No 01/07/25 09:36 than 60 minutes Number of Risk Factors PONV Score Height & Weight Height & Weight: Anesthesia: Height & Weight Height 5 ft 10 in 12/22/24 06:33 Respiratory Assessment Respiratory Assessment - computer network and systems engineer: Respiratory Tract Infection Hx - computer network and systems engineer Hx Respiratory Tract Infection No 01/07/25 09:36 STOP Sleep Apnea STOP Sleep Apnea - computer network and systems engineer: STOP Sleep Apnea - computer network and systems engineer Hx Hypertension Yes 01/07/25 09:36 Hx Sleep Apnea No 01/07/25 09:36 CPAP BIPAP Do you snore loudly (louder No 01/07/25 09:36 than talking or can be heard Do you often feel tired/ No 01/07/25 09:36 fatigued/ sleepy during daytime? Has anyone observed you stop No 01/07/25 09:36 breathing during sleep? STOP Results Negative 01/07/25 09:36 QUESTION #5 FULL TEXT : Do you snore loudly (louder than talking or can be heard through closed doors)? 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 Specify any problems Hx of Preganancy in last 3 N/A 01/07/25 09:36 Months Nurse Filling Out Transfusion JZOCLARK 01/07/25 09:36 & Questions: Date: 01/07/25 01/07/25 09:36 Time: 09:38 01/07/25 09:36 Patient unable to answer at this time (ie. confused, unrespo /Reproduction History /Reproductive History - computer network and systems engineer: /Reproductive Hx- computer network and systems engineer Hx Now No 01/07/25 09:36 Gestational Age (in weeks): EDC: Hx Hx Para Hx Section SAB No 01/07/25 09:36 [facility] Medical History (Updated 01/07/25 @ 10:25 by Destinee Del Valle) History of hiatal hernia Wears glasses History of steroid therapy Arthritis Low iron Back pain Syncope Difficulty swallowing Heartburn Smoker Shortness of breath on exertion Leg cramps History of pain when walking History of edema MRSA (methicillin resistant staph aureus) culture positive ESRD (end stage renal disease) ESRD on hemodialysis (~10/31/24) Anal fistula Hemorrhoids, internal, with bleeding Wears dentures Marijuana use Polycystic renal disease DVT (deep venous thrombosis) High cholesterol History of echocardiogram Cardiology follow-up encounter Hemorrhoids, internal Myocardial infarction HTN (hypertension) Osteoarthritis CAD (coronary artery disease) Home Medications ?Medication ?Instructions ?Recorded ?Last Taken ?Type aspirin 81 mg tablet,delayed 81 mg PO DAILY 05/29/21 0 12/17/24 History release cholecalciferol (vitamin D3) 125 125 mcg PO DAILY 09/1712/21/24 History mcg (5,000 unit) capsule metoprolol tartrate 25 mg tablet 25 mg PO BID 05/29/21 12/22/24 History pravastatin 40 mg tablet 40 mg PO QHS 05/29/21 History Hydrocortisone 2.5%/lidocaine 5% #30 ea 10/13/24 Unkno wn Rx suppository (cmpd) (hydrocortisone 2.5%/lidocaine 5% suppository (compound)) hydrocortisone 2.5 % topical cream [address] QD-BID PRN hemorrhoids 10/13/24 12/21/24 Rx with perineal applicator #30 grams (Proctozone-HC) oxycodone 10 mg tablet 10 mg PO TID PRN pain 12/21/24 History vitamin B complex-vitamin C-folic 1 tab PO QDAY Unknown History acid 0.8 mg tablet (Renal-Svetlana) calcitriol 0.25 mcg capsule 0.25 mcg PO DAILY 10/31/24 12/21/24 History lidocaine-prilocaine 2.5 %-2.5 % 1 applic topical ALESHIA Y PRN SKIN 10/31/24 12/21/24 History topical cream ondansetron 4 mg disintegrating 4 mg PO Q4H PRN PRN na usea and 12/21/24 12/21/24 History tablet vomiting amoxicillin 875 mg-potassium 1 tab PO BID #14 tabs Unknown Rx clavulanate 125 mg tablet Allergy/AdvReac Type Severity Reaction Status Date / Time atorvastatin (From Lipitor) AdvReac MUSCLE ACHE Verified 01/07/25 09:18 Family History Father Cancer abdominal tumor--unsure type Brother Heart disease Sister Brain mass Mother Brain aneurysm Surgical History (Updated 01/07/25 @ 10:25 by Destinee Del Valle) Hx of colonoscopy with polypectomy History of arteriovenostomy for renal dialysis (~05/2021) Hx of left knee surgery History of esophagogastroduodenoscopy (EGD) Hx of cystoscopy History of cardiac catheterization History of coronary artery bypass graft History of heart artery stent Social History household members: none Smoking Status: Current every day smoker tobacco type: cigarettes quit status: considering quitting alcohol intake: former substance use type: does not use Audit: Pertinent Findings Pertinent Findings EKG Perinent findings: 06/07/2021. Sinus bradycardia 54 bpm. Anterior infarct, age undetermined. Pulmonary function results/spirometer pertinent findings: Chest x-ray 10/31/2024. Findings concerning for right middle lobe pneumonia. Mild pulmonary hyperinflation. Mild elevated right Recommendation Anesthesia Recommendation Anesthesia recommendation: OPTIMIZED for anesthesia
[2025-01-21] VITALS (10 sets, daily range): BP systolic 107–149; BP diastolic 58–92; PULSE 49–92; RESP 16; TEMP 36.1–37.1; O2SAT 96–100; BMI 23.1
--- NOTE | 2025-01-21 10:04 | HP.PCM_ITS ---
History and Physical Date of Admission: 01/21/25 12/22/24 0708 MR#: [id number] Acct: [id number] Name: MARLO ADAMSON Rep #: [id number] : 1960 64 From: Maria Ines Mckoy MD PCP: Dr. Marlo Pollard, DO [place] [facility] [place] [address] HPI - General General Date of Service: 12/22/24 HPI Narrative MARLO ADAMSON, is a 64 M who presents for colonoscopy. Patient states he still been expressing about 4 times a day clearish material from the area of the anal fistula/abscess. Patient is never had colonoscopy. Patient denies any family history of colon cancer. Office visit 10/13/2024 HPI HPI: 64-year-old male presents due to hemorrhoid, anal fistula, colonoscopy. Patient does have past medical history for end-stage dialysis on home hemodialysis 4 days a week (Friday, Friday, , Friday) via right forearm fistula. Patient is interested in getting on the kidney transplant list and would need a colonoscopy and to deal with the hemorrhoids and possible fistula prior to that. Patient states about 2 years ago in July he was in bed for about 6 weeks and did notice a larger swelling near his anus about the size of an egg yolk. Patient had some clearish drainage from that and also has noticed hemorrhoid more recently and it seems like that the area of the swelling does track towards the hemorrhoid as what he can feel. Patient does admit to draining the hemorrhoid as well as the area of swelling by sterilizing the needle and poking it. Patient states he typically gets clear liquid I will initially bloody and then clear liquid out of both of them thus he thinks they are connected. Patient has not had to poke the area of the fistula recently as he is able to do his expressed an open hole. Patient denies any pain with this. Patient states he has had a hemorrhoid since he was a kid. Patient also states he has severe polycystic disease of his kidneys which she had previously been told he had largest kidneys some doctor has never ever seen. He he states he did have a CT at [facility] sometime in the past we will try to get that record. Patient has never had a colonoscopy, denies any family history of colon cancer. [facility] Medical History (Updated 12/22/24 @ 07:[address] Maria Ines Mckoy MD) Wears glasses History of steroid therapy Arthritis Low iron Back pain Syncope Difficulty swallowing Heartburn Smoker Shortness of breath on exertion Leg cramps History of pain when walking History of edema MRSA (methicillin resistant staph aureus) culture positive ESRD (end stage renal disease) ESRD on hemodialysis (~10/31/24) Anal fistula Hemorrhoids, internal, with bleeding Wears dentures Marijuana use Polycystic renal disease DVT (deep venous thrombosis) High cholesterol History of echocardiogram Cardiology follow-up encounter Hypertension Hemorrhoids, internal Myocardial infarction HTN (hypertension) Osteoarthritis Anxiety and depression CAD (coronary artery disease) Home Medications ?Medication ?Instructions ?Recorded ?Last Taken ?Type aspirin 81 mg tablet,delayed 81 mg PO DAILY 05/29/21 12/17/24 History release cholecalciferol (vitamin D3) 125 125 mcg PO DAILY 05/29/21 12/21/24 Histo ry mcg (5,000 unit) capsule metoprolol tartrate 25 mg tablet 25 mg PO BID 05/29/21 12/22/24 History pravastatin 40 mg tablet 40 mg PO QHS 05/29/21 12/20/24 History Hydrocortisone 2.5%/lidocaine 5% #30 ea 10/13/24 Unknown Rx suppository (cmpd) (hydrocortisone 2.5%/lidocaine 5% suppository (compound)) hydrocortisone 2.5 % topical cream 1 applic NJ QD-BID PRN hemorrhoids 10/1312/21/24 Rx with perineal applicator #30 grams (Proctozone-HC) oxycodone 10 mg tablet 10 mg PO TID PRN pain 10/13/24 12/21/24 History vitamin B complex-vitamin C-folic 1 tab PO QDAY 10/13/24 Unknown History acid 0.8 mg tablet (Renal-Svetlana) calcitriol 0.25 mcg capsule 0.25 mcg PO DAILY 10/31/24 12/21/24 Hist ory lidocaine-prilocaine 2.5 %-2.5 % 1 applic topical DAILY PRN SKIN 10/31/24 12/21/24 History topical cream ondansetron 4 mg disintegrating 4 mg PO Q4H PRN PRN nausea and 12/21/24 12/21/24 History tablet vomiting Allergy/AdvReac Type Severity Reaction Status Date / Time atorvastatin (From Lipitor) AdvReac MUSCLE ACHE Verified 12/22/24 06:31 Family History (Updated 10/31/24 @ 04:[address] Elidia Cunningham MD) Father Cancer abdominal tumor--unsure typeBrother Heart diseaseSister Brain massMother Brain aneurysm Surgical History (Updated 12/21/24 @ 09:47 by Destinee Del Valle) History of arteriovenostomy for renal dialysis (~05/2021) Hx of left knee surgery History of esophagogastroduodenoscopy (EGD) Hx of cystoscopy History of cardiac catheterization History of coronary artery bypass graft History of heart artery stent Social History (Updated 10/31/24 @ 04:[address] Elidia Cunningham MD) household members: none Smoking Status: Current every day smoker tobacco type: cigarettes quit status: considering quitting alcohol intake: former substance use type: does not use Past Medical/Surgical History Planned Operation Planned Operative Procedure(s): COLONOSCOPY Previous Hospitalizations/Surgeries HX Hospitalizations: Yes (10/2024 FLU/DIALYSIS ISSUES) Any Problems With Anesthesia: No You/Your Family Experience Fever (Hyperthermia) With Anes: No Cholinesterase deficiency: No Cardiovascular Hx Hypertension: Yes (FAIRLY CONTROLLED WITH MED) Respiratory Hx Sleep Apnea: No Hx Respiratory Tract Infection/Cold (presently): No Do You Snore Loudly (louder than talking or can be heard): No Do You Often Feel Tired/ Fatigued/ Sleepy Dring Daytime?: Yes Has Anyone Observed You Stop Breathing During Sleep?: No Result (for STOP score): Positive Smoking Status: Current every day smoker Neurological Does patient have nerve stimulator: No Reproduction : No Miscellaneous Recent Exposure to Contagious Disease: No Allergies atorvastatin (From Lipitor) Adverse Reaction (Verified 12/22/24 06:31) MUSCLE ACHE Discharge Is Pt Admitted From a Long-Term, or a Halfway: No After D/C, Where Do you Plan to Go: Return Home Vital Signs Vital Signs Vital Signs: 12/22/2505:33 12/22/2505:33 Temperature 98.3 F Temperature Source Temporal Pulse Rate 70 Respiratory Rate 16 Respiratory Pattern Normal Blood Pressure 114/76 Blood Pressure Mean 88 Blood Pressure Source Monitor Blood Pressure Position Semi-Fowlers Blood Pressure Location Right Arm Pulse Ox 93 Oxygen Delivery Method Room Air Weight Weight: 163 lb 2.273 oz Body Mass Index (BMI) 23.3 Physical Exam Const alert, oriented x3 and no apparent distress HEENT normocephalic and head/scalp atraumatic Resp normal respiratory effort Cardio regular rate GI soft to palpation and non-tender; Negative for non-distended Palpation: Negative for guarding Extremity Extremity Narrative: Left forearm fistula good thrill Skin no rashes or lesions noted Neuro CN's II-XII intact bilaterally Psych mental status grossly normal Assessment & Plan Assessment/Plan (1) Screening for colon cancer: (2) Hemorrhoids, internal, with bleeding: (3) Anal fistula: Surgery Risks - Colonoscopy I discussed with the patient the risks of the procedure: Yes Risks Include but are not Limited To: Risks include but are not limited to: Bleeding, perforation requiring further surgery, inability to complete colonoscopy requiring barium enema. 12/22/24 0717 <Electronically signed by Maria Ines Mckoy MD>
[2025-01-21] MEDS: 0.9% Normal Saline (500mL Bag) 500 ML 30 ML IV (10:35)
--- NOTE | 2025-01-21 10:57 | PCM.PRE.AN2 ---
ASA Classification* ASA Classification ASA Classification: 3 Assessment & Plan Anesthesia* Anesthesia Assessment Anesthesia Assessment: Discussed sedation and/or anesthesia options, risks, benefits, and alternatives with patient/parents/legal guardian/POA. Questions invited. The patient/parents/legal guardian/POA seems to understand and agrees to proceed with anesthesia plan. Reviewed the physical assessment, medical history, allergy history and patient home medications list prior to surgery/procedure/anesthetic and documented any changes. Performed airway and anesthesia risk assessments. Anesthesia Type Anesthesia Type: General History Source History Obtained from:: Patient and Chart Anesthesia Focused Assessment* Temperature: 98.8 F Pulse Rate: 62 Blood Pressure: 107/64 Respiratory Rate: 16 Pulse Ox: 97 Oxygen Delivery Method: Room Air Airway Assessment Mouth opens: >3 cm Mallampati Score: I Teeth Condition: Dentures (Patient has full upper and lower dentures. They are out.) Neck Range of motion (ROM): Full ROM Labs Anesthesia Preop lab: CBC WBC 7.6 K/mm3 (4.4-11.0) 11/02/24 07:12 11/02/24 RBC 3.99 M/mm3 (4.6-6.2) L 11/02/24 07:12 11/02/24 Hgb 12.4 g/dL (13.0-16.5) L 11/02/24 07:12 11/02/24 Hct 36.8 % (40-54) L 11/02/24 07:12 11/02/24 Plt Count 218 K/mm3 (150-450) 11/02/24 07:12 11/02/24 CHEMISTRY Potassium 3.8 mmol/L (3.3-5.1) 11/02/24 07:12 11/02/24 Sodium 134 mmol/L (133-145) 11/02/24 07:12 11/02/24 Magnesium 1.8 mg/dL (1.5-2.2) 10/31/24 02:12 10/31/24 Phosphorus 3.3 mg/dL (2.7-4.5) 10/31/24 02:12 10/31/24 BUN 41 mg/dL (4-19) H 11/02/24 07:12 11/02/24 Creatinine 5.94 mg/dL (0.70-1.20) H 11/02/24 07:12 11/02/24 Glucose 88 mg/dL (70-99) 11/02/24 07:12 11/02/24 POC Glucose 139 mg/dL (70-110) H 11/16/19 09:54 11/16/19 TSH 1.17 uIU/mL (0.358-3.74) 04/01/17 12:59 04/01/17 COAG Pre-Assessment Diagnosis/Proposed Procedure Planned Operative Procedure(s): Exam Under Anesthesia hemorrhoidectomy and possible fistulotomy Anesthesia History Anesthesia History - sap functional analyst: Anesthesia History - sap functional analyst Hx Hospitalization Yes: 4- infection 01/07/25 09:36 Any Problems With Anesthesia No 01/07/25 09:36 Cholinesterase deficiency No 01/07/25 09:36 You/Your Family Experience No 01/07/25 09:36 fever (hyperthermia) with Relationship Recent Exposure to Contagious No 01/21/25 10:25 Disease Does patient have nerve No 01/07/25 09:36 stimulator Patient instructed to have device shut off --Does patient have Pacemaker No 01/21/25 10:25 or ICD? When Was Last Pacemaker Check QUESTION #4 FULL TEXT: You/Your Family Experience fever (hyperthermia) with Anesthesia Last Oral Intake Last Oral intake: Last Oral Intake NPO since 19:00 01/21/25 10:25 Meds taken in AM with sips of Yes 01/21/25 10:25 water? Meds patient instructed to METOPROLOL 01/21/25 10:25 take am of surgery ASA OXYCODONE Any additional information?: Yes Meds taken in AM with sips of water?: Yes PONV PONV - sap functional analyst: PONV - sap functional analyst Female No 01/07/25 09:36 HX of Motion Sickness No 01/07/25 09:36 HX of N/V After Surgery No 01/07/25 09:36 Non-Smoker No 01/07/25 09:36 Duration of Surgery greater No 01/07/25 09:36 than 60 minutes Number of Risk Factors PONV Score Height & Weight Height & Weight: Anesthesia: Height & Weight Height 5 ft 10 in 01/21/25 10:25 Weight: 73 kg 01/21/25 10:25 Body Mass Index (BMI) 23.1 01/21/25 10:25 Respiratory Assessment Respiratory Assessment - sap functional analyst: Respiratory Tract Infection Hx - sap functional analyst Hx Respiratory Tract Infection No 01/07/25 09:36 STOP Sleep Apnea STOP Sleep Apnea - sap functional analyst: STOP Sleep Apnea - sap functional analyst Hx Hypertension Yes 01/07/25 09:36 Hx Sleep Apnea No 01/07/25 09:36 CPAP BIPAP Do you snore loudly (louder No 01/07/25 09:36 than talking or can be heard Do you often feel tired/ No 01/07/25 09:36 fatigued/ sleepy during daytime? Has anyone observed you stop No 01/07/25 09:36 breathing during sleep? STOP Results Negative 01/07/25 09:36 QUESTION #5 FULL TEXT : Do you snore loudly (louder than talking or can be heard through closed doors)? Tobacco Use History Tobacco Use History - sap functional analyst: Tobacco Use History - sap functional analyst Tobacco Use Smoking Status Current every day smoker 01/07/25 09:36 Hx Tobacco Use Yes 01/07/25 09:36 Years Smoking 40 01/07/25 09:36 Packs Smoked per Day 1 01/07/25 09:36 Smoking Cessation Date was within the last 15 years Hx Smoking Cessation Date Hx Smoking Cessation No 01/07/25 09:36 Counseling Any additional information?: Yes Smoking Status: Current every day smoker (Patient smoked today.) Hematologic Medial History Hematologic Hx - sap functional analyst: Hematologic Medical Hx - gis administrator Hx of Blood Transfusion No 01/07/25 09:36 Hx of Transfusion in last 3 No 01/07/25 09:36 Months Date of Last Transfusion (if within last 3 months) Ever experience any problems No 01/07/25 09:36 with transfusion(s)? Specify any problems Hx of Preganancy in last 3 N/A 01/07/25 09:36 Months Nurse Filling Out Transfusion MIGUEL ÁNGEL 01/07/25 09:36 & Questions: Date: 01/07/25 01/07/25 09:36 Time: 09:38 01/07/25 09:36 Patient unable to answer at this time (ie. confused, unrespo /Reproduction History /Reproductive History - sap functional analyst: /Reproductive Hx- sap functional analyst Hx Now No 01/07/25 09:36 Gestational Age (in weeks): EDC: Hx Hx Para Hx Section SAB No 01/07/25 09:36 Active Medications Active Medications: Current Medications Generic Name Dose Route Start Last Admin Trade Name Freq PRN Reason Stop Dose Admin Sodium Chloride 500 mls @ 0 mls/hr 01/21/25 10:15 01/21/25 10:35 IV 30 mls/hr .Q0M MARIJA Administration KVO PFSH Medical History (Updated 01/07/25 @ 10:25 by Destinee Del Valle) History of hiatal hernia Wears glasses History of steroid therapy Arthritis Low iron Back pain Syncope Difficulty swallowing Heartburn Smoker Shortness of breath on exertion Leg cramps History of pain when walking History of edema MRSA (methicillin resistant staph aureus) culture positive ESRD (end stage renal disease) ESRD on hemodialysis (~10/31/24) Anal fistula Hemorrhoids, internal, with bleeding Wears dentures Marijuana use Polycystic renal disease DVT (deep venous thrombosis) High cholesterol History of echocardiogram Cardiology follow-up encounter Hemorrhoids, internal Myocardial infarction HTN (hypertension) Osteoarthritis CAD (coronary artery disease) Home Medications ?Medication ?Instructions ?Recorded ?Last Taken ?Type aspirin 81 mg tablet,delayed 81 mg PO DAILY 05/29/21 01/21/25 History release cholecalciferol (vitamin D3) 125 125 mcg PO DAILY 05/29/21 01/20/25 History mcg (5,000 unit) capsule metoprolol tartrate 25 mg tablet 25 mg PO BID 05/29/21 01/21/25 History pravastatin 40 mg tablet 40 mg PO QHS 05/29/21 01/20/25 History Hydrocortisone 2.5%/lidocaine 5% #30 ea 10/13/24 Unknown Rx suppository (cmpd) (hydrocortisone 2.5%/lidocaine 5% suppository (compound)) hydrocortisone 2.5 % topical cream 1 applic RI QD-BID PRN hemorrhoids 10/13/24 01/20/25 Rx with perineal applicator #30 grams (Proctozone-HC) oxycodone 10 mg tablet 10 mg PO TID PRN pain 10/13/24 01/21/25 04:00 History vitamin B complex-vitamin C-folic 1 tab PO QDAY 10/13/24 01/20/25 History acid 0.8 mg tablet (Renal-Svetlana) calcitriol 0.25 mcg capsule 0.25 mcg PO DAILY 10/31/24 01/20/25 History lidocaine-prilocaine 2.5 %-2.5 % 1 applic topical DAILY PRN SKIN 10/31/24 01/20/25 History topical cream ondansetron 4 mg disintegrating 4 mg PO Q4H PRN PRN nausea and 12/21/24 01/20/25 History tablet vomiting Allergy/AdvReac Type Severity Reaction Status Date / Time atorvastatin (From Lipitor) AdvReac MUSCLE ACHE Verified 01/07/25 09:18 Family History Father Cancer abdominal tumor--unsure type Brother Heart disease Sister Brain mass Mother Brain aneurysm Surgical History (Updated 01/07/25 @ 10:25 by Destinee Del Valle) Hx of colonoscopy with polypectomy History of arteriovenostomy for renal dialysis (~05/2021) Hx of left knee surgery History of esophagogastroduodenoscopy (EGD) Hx of cystoscopy History of cardiac catheterization History of coronary artery bypass graft History of heart artery stent Social History household members: none Smoking Status: Current every day smoker tobacco type: cigarettes quit status: considering quitting alcohol intake: former substance use type: does not use Review of Systems (Anesthesia) ROS Narrative System reviewed and no additional complaints, except as documented.
--- NOTE | 2025-01-21 11:30 | HEM_PTH ---
PATIENT: MARLO ADAMSON [place] [facility] [place] U[place][id number] AGE/SX: 64/M ROOM: RE01/21/[address]: Dr. Maria Ines Mckoy MD : 1960 BED: DIS: 01/21/2025 SPEC #: [id number] RECD: 01/21/25 15:38 STATUS: MARIKA VERNA #: [id number] PERI: 01/21/25 11:[address]: Maria Ines Mckoy DEPT: SURGICAL PATHOLOGY RECD BY: Rafa Gipson ENTERED: 01/24/25 09:38 SP TYPE: HEMORRHOID OTHR DR: Dr. Marlo Pollard, DO Tissues: A - HEMORRHOIDS B - Soft tissues, NOS Procedures: Surgery Specimen Level III HEADER OPERATION: Exam under anesthesia hemorrhoidectomy, excision of sinus tract PRE-OP DIAGNOSIS: Hemorrhoid, anal fistula TISSUE SUBMITTED: A- Hemorrhoid tissue, B- Left gluteal sinus tract MICROSCOPIC DIAGNOSIS A. Soft tissue, hemorrhoidal tissue, hemorrhoidectomy: - Anal tissue with dilated and congested blood vessels consistent with hemorrhoid. B. Gluteal area, left, sinus tract, excision: - Skin and subcutis with hyperkeratotic verrucous epidermal change, dermal fibrosis consistent with scar, and benign skeletal muscle fibers at the base of the excision. MICROSCOPIC DESCRIPTION Slides are reviewed. GROSS DESCRIPTION Received in 2 formalin containers labeled with the patient's name and date of . Designated as: A. Hemorrhoid tissue are 2 irregular, dark red-brown and congested portions of soft tissue and skin, 2.5 x 2.4 x 1.1 cm and 2.9 x 2.6 x 1.2 cm. Sectioning reveals rubbery to congested cut surfaces. Cut Lace Machine Operator sections are submitted in 1 cassette. B. Left gluteal sinus tract is a 3.3 x 1.9 x 1.0 cm irregular cauterized portion of walden skin with attached soft tissue, devoid of orientation. Eccentrically on the specimen is a probe patent sinus tract. A publications sales representative section of the sinus tract is submitted in 1 cassette. CO 01/24/2025 CPT:[id number]
[2025-01-21] MEDS: Dibucaine 30 GM Tube 1 APPLIC (14:00)
[2025-01-21] MEDS: BUPIVACAINE LIPOSOME/PF 20 ML VIAL OPERA.SITE (14:00)
--- NOTE | 2025-01-21 14:12 | PCM.OPRPT ---
Operative Report (Standard) Operative Information Date of Procedure: 01/21/25 Pre-Operative Diagnosis: Anal fistula, hemorrhoids with bleeding Post-Operative Diagnosis: Internal/external hemorrhoids with bleeding, left gluteal subcutaneous sinus tract Surgery/Procedure Performed: Hemorrhoidectomy x 2, excision of left gluteal subcutaneous sinus tract civil engineer in training: Yes Tap Builder: Sam Amin Tasks completed by field assistant: Opening & closing and Retracting Type of Anesthesia: General/Supplemental RN Documented Start/Stop Times: Operation Date: 01/21/25 11:30 Case Time Into Pre-Op 01/21/25 09:54 Out of Pre-Op 01/21/25 12:43 Anesthesia Start 01/21/25 12:46 Into Room 01/21/25 12:46 Procedure Start 01/21/25 13:12 Procedure End 01/21/25 14:10 Anesthesia End 01/21/25 14:24 Out of Room 01/21/25 14:24 Into Recovery 01/21/25 14:26 Out of Recovery 01/21/25 15:16 Into Phase II Recovery 01/21/25 15:17 Out of Phase II 01/21/25 16:27 Procedure Start Time: 13:12 Procedure Stop Time: 14:10 Select all DRAINS/GRAFTS/IMPLANTS that apply: None Special Medications: none Estimated Blood Loss: 15 cc Specimen collected: Yes Description of specimen(s) removed: Hemorrhoidectomy, left gluteal sinus tract Description of surgery: The patient was brought into the operating room and general anesthesia was induced. He was placed in prone jackknife lithotomy position. A timeout was completed verifying correct patient, procedure, site, position, and special equipment prior to beginning the procedure. The buttocks were taped apart. Perineum was prepared prepped and draped in standard sterile fashion. Local anesthesia was injected as a perianal nerve block-Exparel 20 cc used throughout the case. Anus carefully dilated. Small Hill-Melendez retractor was introduced and 3 marginal pedicles identified. He was noted to have internal and external hemorrhoids at all 3 cushions largest were in left lateral and right anterior. Right gluteal possible fistula injected with peroxide no peroxide seen in the anus. Lacrimal probes used and tracked more laterally and not towards the anus. Left lateral and right anterior pedicles were excised in turn in the following fashion. 0 Vicryl suture was placed at the base of each of the pedicles and retracted externally to exteriorize the hemorrhoidal pedicles. An elliptical incision was made extending from perianal skin to anal rectal ring including both internal and external hemorrhoids and excising a minimal amount of anoderm. Cautery was used to separate the hemorrhoid from the underlying tissue. Careful not to involve any of the sphincter muscle. The pedicle was indicated from the base and sent to pathology. Hemostasis was achieved using electrocautery. Following the hemostasis the skin and mucosal incisions were closed with the running lock stitch of 2-0 chromic. A large Surgifoam with dibucaine was placed in the anus. Left gluteal sinus tract was excised with an elliptical incision around the tract exit site. A gauze pad tucked between the gluteal folds. The patient tolerated procedure well and was extubated and taken to the postanesthesia care unit in stable condition. Surgical Findings: See operative report Complications Complications: No
--- NOTE | 2025-01-21 14:17 | DCINST_ITS ---
Discharge Instructions Diet Discharge Diet: Light diet - advance as tolerated Activity Discharge Activity: May Shower (No Mercedez for sitz bath's) Lifting Restrictions: No lifting greater than 20 pounds x 3 weeks Dressing / Incision Call your doctor if your incision/area has: Continuous Slow Oozing, Sudden Increased Bleeding, Increased Pain/ Swelling and Increased Redness Additional Dressing/Incision Instructions:: Sitz bath's daily/as needed Follow Up Care Please Follow Up With: Maria Ines Mckoy MD When: 1 to 2 weeks call the office for follow-up appointment [phone] Test Results: Test results from this visit will be discussed in further detail at your follow- up appointment, if applicable. Discharge Plan Admission Attending Provider: Maria Ines Mckoy Primary Care Provider: Jg Pollard Instructions Print Language: [place] Discharge Orders/Prescriptions Prescriptions: Continued metoprolol tartrate 25 mg tablet 25 mg PO BID pravastatin 40 mg tablet 40 mg PO QHS cholecalciferol (vitamin D3) 125 mcg (5,000 unit) capsule 125 mcg PO DAILY Renal-Svetlana 0.8 mg tablet 1 tab PO QDAY oxycodone 10 mg tablet 10 mg PO TID PRN (Reason: pain) (DME) hydrocortisone 2.5%/lidocaine 5% suppository (compound) Suppository See Rx Instructions .ROUTE Qty: 30 1RF Rx Instructions: insert rectum twice daily hydrocortisone [Proctozone-HC] 2.5 % cream with perineal applicator 1 applic CA QD-BID PRN (Reason: hemorrhoids) Qty: 30 0RF lidocaine-prilocaine 2.5-2.5 % cream 1 applic topical DAILY PRN (Reason: SKIN) calcitriol 0.25 mcg capsule 0.25 mcg PO DAILY ondansetron 4 mg tablet,disintegrating 4 mg PO Q4H PRN PRN (Reason: nausea and vomiting) Held aspirin 81 mg tablet,delayed release (DR/EC) 81 mg PO DAILY Hold Instructions: Resume on 01/26/25. Referrals / Follow Up: Jg Pollard DO [Primary Care Provider] - Disposition Disposition (needs filled in before D/C Order can be placed): Home, Self Care
--- NOTE | 2025-01-21 14:29 | PCM.POST.ANE ---
Anesthesia: Postop Eval I Current Vital Signs Temperature: 97.4 F Pulse Rate: 92 Blood Pressure: 142/92 Respiratory Rate: 16 Pulse Ox: 100 Oxygen Delivery Method: Room Air Assessment Airway patent: Yes Spontaneous unlabored respirations: Yes Mental status: Awake nausea: No Vomiting: No Anesthesia Complication: No Fluid Hydration Crystalloid volume administer (ml): 200 Total IV fluid infused: 200 Progress Note Anesthesia document: Postop Eval 1 completed: Yes
[2025-01-21] MEDS: Cefazolin 2 GM in 0.9% Normal Saline (100mL Bag) 100 ML IV (14:55)
--- NOTE | 2025-01-24 10:04 | POSTOPAN2_ITS ---
Anesthesia Postop Eval I Sum Postop Eval Completion status Anesthesia document: Postop Eval 1 completed: Yes Anesthesia Postop Eval I Summary Anesthesia Postop Eval I Summary: Anesthesia Postop Eval I: Assessment Summary Airway patent Yes 01/21/25 14:30 NURSE'S [email or web address].[email or web address] Spontaneous unlabored Yes 01/21/25 14:30 NURSE'S COMPANION.JSWI respirations Mental status Awake 01/21/25 14:30 NURSE'S COMPANION.JSWI nausea No 01/21/25 14:30 NURSE'S COMPANION.JSWI Vomiting No 01/21/25 14:30 NURSE'S COMPANION.JSWI Anesthesia Postop Eval I: Fluid Summary Crystalloid volume administer 200 01/21/25 14:30 NURSE'S COMPANION.JSWI (ml) Colloids volume administered ( ml) Blood Product volume administered (ml) Total IV fluid infused 200 01/21/25 14:30 NURSE'S COMPANION.JSWI Anesthesia Postop Eval I: Summary Notes Anesthesia Complication No 01/21/25 14:30 NURSE'S COMPANION.JSWI Anesthesia Complication Comment: Post-operative progress note Anesthesia: Postop Eval II Evaluation Mental status: Awake and Calm Pain Level: 0 nausea: No Vomiting: No Complications Anesthesia Complication: No
--- NOTE | 2025-01-24 10:04 | PCM.POSTANE2 ---
Anesthesia Postop Eval I Sum Postop Eval Completion status Anesthesia document: Postop Eval 1 completed: Yes Anesthesia Postop Eval I Summary Anesthesia Postop Eval I Summary: Anesthesia Postop Eval I: Assessment Summary Airway patent Yes 01/21/25 14:30 HAND PATTERN MARKER.[email or web address] Spontaneous unlabored Yes 01/21/25 14:30 HAND PATTERN MARKER.JSWI respirations Mental status Awake 01/21/25 14:30 HAND PATTERN MARKER.JSWI nausea No 01/21/25 14:30 HAND PATTERN MARKER.JSWI Vomiting No 01/21/25 14:30 HAND PATTERN MARKER.JSWI Anesthesia Postop Eval I: Fluid Summary Crystalloid volume administer 200 01/21/25 14:30 HAND PATTERN MARKER.JSWI (ml) Colloids volume administered ( ml) Blood Product volume administered (ml) Total IV fluid infused 200 01/21/25 14:30 HAND PATTERN MARKER.JSWI Anesthesia Postop Eval I: Summary Notes Anesthesia Complication No 01/21/25 14:30 HAND PATTERN MARKER.JSWI Anesthesia Complication Comment: Post-operative progress note Anesthesia: Postop Eval II Evaluation Mental status: Awake and Calm Pain Level: 0 nausea: No Vomiting: No Complications Anesthesia Complication: No
== END 2025-01-21 16:27 | disposition home or self-care (01) ==
LOC: SDC 09:48 → AC 09:49
PROVIDERS: PCP Family Medicine; Referring Provider Surgery; Visit Provider Surgery
PROC: (CPT 46262; principal; 2025-01-21 11:15)
DX: K60.30 Anal fistula, unspecified (principal); N18.6 End stage renal disease; I12.0 Hypertensive chronic kidney disease with stage 5 chronic kidney disease or end stage renal disease; K64.4 Residual hemorrhoidal skin tags; K64.8 Other hemorrhoids; Z99.2 Dependence on renal dialysis; Q61.3 Polycystic kidney, unspecified; I25.2 Old myocardial infarction; I25.10 Atherosclerotic heart disease of native coronary artery without angina pectoris; E78.00 Pure hypercholesterolemia, unspecified; F17.210 Nicotine dependence, cigarettes, uncomplicated; Z95.1 Presence of aortocoronary bypass graft; Z79.82 Long term (current) use of aspirin; Z86.718 Personal history of other venous thrombosis and embolism; Z79.899 Other long term (current) drug therapy
CPT/HCPCS: 46262; 00902; 88304; J0666; J2405

== ENCOUNTER 2025-01-30 02:10 | Observation (INO) | payer MEDICARE, SELFPAY ==
[2025-01-30] VITALS (16 sets, daily range): BP systolic 105–148; BP diastolic 59–98; PULSE 66–91; RESP 14–20; TEMP 35.9–37.1; O2SAT 94–100; BMI 23.3
--- NOTE | 2025-01-30 02:13 | EX.ED.DYSGE1 ---
HPI History of Present Illness Chief Complaint: GI Bleed [facility] Medical History (Updated 01/30/25 @ 04:[address] Herson Victoria, DO) History of hiatal hernia Wears glasses History of steroid therapy Arthritis Low iron Back pain Syncope Difficulty swallowing Heartburn Smoker Shortness of breath on exertion Leg cramps History of pain when walking History of edema MRSA (methicillin resistant staph aureus) culture positive ESRD (end stage renal disease) ESRD on hemodialysis (~10/31/24) Anal fistula Hemorrhoids, internal, with bleeding Wears dentures Marijuana use Polycystic renal disease DVT (deep venous thrombosis) High cholesterol History of echocardiogram Cardiology follow-up encounter Hemorrhoids, internal Myocardial infarction HTN (hypertension) Osteoarthritis CAD (coronary artery disease) Home Medications ?Medication ?Instructions ?Recorded ?Last Taken ?Type aspirin 81 mg tablet,delayed 81 mg PO DAILY 05/29/21 01/21/25 History release Held on 01/30/25. Instructions: surgery cholecalciferol (vitamin D3) 125 125 mcg PO DAILY 05/29/21 01/20/25 History mcg (5,000 unit) capsule metoprolol tartrate 25 mg tablet 25 mg PO BID 05/29/21 01/21/25 History pravastatin 40 mg tablet 40 mg PO QHS 05/29/21 01/20/25 History Hydrocortisone 2.5%/lidocaine 5% #30 ea 10/13/24 Unknown Rx suppository (cmpd) (hydrocortisone 2.5%/lidocaine 5% suppository (compound)) hydrocortisone 2.5 % topical cream 1 applic VT QD-BID PRN hemorrhoids 10/13/24 01/20/25 Rx with perineal applicator #30 grams (Proctozone-HC) oxycodone 10 mg tablet 10 mg PO TID PRN pain 10/13/24 01/21/25 04:00 History vitamin B complex-vitamin C-folic 1 tab PO QDAY 10/13/24 01/20/25 History acid 0.8 mg tablet (Renal-Svetlana) calcitriol 0.25 mcg capsule 0.25 mcg PO DAILY 10/31/24 01/20/25 History lidocaine-prilocaine 2.5 %-2.5 % 1 applic topical DAILY PRN SKIN 10/31/24 01/20/25 History topical cream ondansetron 4 mg disintegrating 4 mg PO Q4H PRN PRN nausea and 12/21/24 01/20/25 History tablet vomiting Allergy/AdvReac Type Severity Reaction Status Date / Time atorvastatin (From Lipitor) AdvReac MUSCLE ACHE Verified 01/07/25 09:18 Family History Father Cancer abdominal tumor--unsure type Brother Heart disease Sister Brain mass Mother Brain aneurysm Surgical History (Updated 01/30/25 @ 04:[address] Fili Nj MD) S/P hemorrhoidectomy Hx of colonoscopy with polypectomy History of arteriovenostomy for renal dialysis (~05/2021) Hx of left knee surgery History of esophagogastroduodenoscopy (EGD) Hx of cystoscopy History of cardiac catheterization History of coronary artery bypass graft History of heart artery stent Social History household members: none Smoking Status: Current every day smoker tobacco type: cigarettes quit status: considering quitting alcohol intake: former substance use type: does not use EXAM Physical Exam Const Vital Signs: 01/30/25 02:13 01/30/25 03:00 01/30/25 03:30 Temperature 98.6 F 98.5 F Temperature Source Oral Oral Pulse Rate 84 84 81 Respiratory Rate 20 H 18 16 Blood Pressure 117/96 H 121/77 H 132/98 H Blood Pressure Mean 103 91 109 Blood Pressure Source Monitor Blood Pressure Position Right Lateral Blood Pressure Location Left Arm Pulse Ox 96 96 96 Oxygen Delivery Method Room Air Room Air Room Air 01/30/25 03:30 01/30/25 04:00 Temperature 98.5 F Temperature Source Pulse Rate 81 77 Respiratory Rate 16 18 Blood Pressure 132/98 H 119/78 Blood Pressure Mean 109 91 Blood Pressure Source Blood Pressure Position Blood Pressure Location Pulse Ox 95 94 Oxygen Delivery Method Room Air MDM MDM MDM Narrative Medical decision making narrative: HISTORY OF PRESENT ILLNESS: Chief complaint: Rectal bleeding 64-year-old male history of ESRD, hyperlipidemia, CAD status post [place] cardiac catheterization and CABG, on aspirin but no other blood thinners presents with severe rectal bleeding status post hemorrhoidectomy presents with severe rectal bleeding. Notes has had bleeding since the operation however today got severely worse after vomiting and then using the bathroom. Notes heavy bleeding. States he can feel flowing internally. Denies chest pain or shortness of breath. Denies taking blood thinners. Notes gets dialysis 4 times a week. He notes his last dialysis was on Friday. States he missed it yesterday secondary to bleeding and not feeling well. REVIEW OF SYSTEMS: Pertinent positives: Rectal bleeding Pertinent negatives: Chest pain, shortness of breath PHYSICAL EXAM: Nursing triage notes reviewed, Vital signs reviewed Constitutional: please see mdm HENT: MMM Eyes: Pupils equal round and reactive to light, Extraocular muscles intact Neck: No stridor, no JVD, full neck ROM Lungs: Clear to auscultation, No wheezing or rales. No increased work of breathing, no conversational dyspnea, no accessory muscle use, no nasal flaring. No respiratory distress noted Heart: Regular rate and rhythm, No murmurs, No rubs and No gallops, 2+ distal pulses (radial, femoral, posterior tibial) in all extremities Abdomen: Soft, there is no tenderness, rigidity, rebound or guarding, no obvious peritoneal signs, no palpable pulsatile abdominal masses, no auscultated abdominal bruit : No CVAT Extremities: No edema, left upper extremity fistula with palpable thrill, no overlying erythema Rectal: Performed computer support specialist instructor in room and verbal consent the patient showed findings as below Neuro: Intact, no focal deficits Skin: No pallor MEDICAL DECISION MAKING: Chief Complaint: please see [facility] External records reviewed: Underwent hemorrhoidectomy and excision of left gluteal sinus tract on 01/21/2025 Factors affecting care: As per [facility] Social determinants of health: none History obtained from others: EMS, general surgery on-call (Dr. Nj) Consults: Dr. Nj [facility] Narrative: The patient was initially hemodynamically stable, afebrile and nontoxic-appearing. Exam with a large amount of blood noted on sheets as well as underwear. Large clot noted initially approximately 6 x 6 cm. Rectal exam performed with computer support specialist instructor and verbal consent of the patient showed active bleeding oozing out of the rectum. There is a small approximate 1 cm defect the left gluteus likely fistulous tract also has oozing blood. Let impregnated gauze was placed to achieve initial hemostasis. There is no obvious site to suture or repair externally. Initial exam consistent with likely need of internal repair. I considered the following differential diagnosis: Internal bleeding, postop bleeding, severe anemia I obtained lab workup to further determine if the patient was suffering from a life-threatening etiology. Initially packed the site with Surgicel and let. ALL IMAGES (IF OBTAINED) HAVE BEEN PERSONALLY REVIEWED AND INTERPRETED BY MYSELF. CBC with no leukocytosis, actually improved anemia, no thrombocytopenia Coagulation studies within normal limits BMP with ESRD, no significant electrolyte abnormalities At 2:30 AM discussed the case with general surgery on-call who recommended packing the area and assessing for signs of bleeding. Recommended calling them back in 1 hour to assess neck step is either emergent OR versus urgent OR. At 3:[address] Nj who notes he would be in shortly. At 3:50 AM nurse reported patient continues to bleed despite lack, Surgicel and pressure dressing. At 4:[address] Nj arrived and recommended the patient go to the OR. The patient and/or family, caregivers express understanding. The patient and/or family, caregivers agrees with the plan. Shared decision making: I will have a discussion with the patient and or visitors regarding risk/benefits of further testing or admission. They will be made aware of of the risk/benefits inherent in this decision they will be given the opportunity to voice understanding. Total critical care time today provided was at least 35 minutes. This excludes separately billable procedures. Critical care time (if documented) is secondary to the patient having high probability of clinically significant/life threatening deterioration in the patient's condition which required my urgent intervention. Impression: 1. Rectal bleed 2. Postop bleed 4. History of ESRD Dispo: Admit to OR This note was generated with [employer] dictation software. It may contain incorrect words, spelling, and punctuation that were not noted in review of the chart prior to signing. Lab Data Labs: Laboratory Results - last 24 hr 01/30/25 02:17 WBC 10.8 RBC 4.59 L Hgb 14.4 Hct 42.2 MCV 91.9 MCH 31.4 MCHC 34.1 RDW Std Deviation 48.0 H RDW Coeff of Fito 14.3 Plt Count 181 MPV 9.1 Immature Gran % (Auto) 0.500 Neut % (Auto) 76.0 H Lymph % (Auto) 12.0 L [place] % (Auto) 8.5 Eos % (Auto) 2.6 Baso % (Auto) 0.4 Absolute Neuts (auto) 8.2 H Absolute Lymphs (auto) 1.29 Nucleated RBC % 0 PT 13.6 INR 1.0 APTT 30.6 Sodium 132 L Potassium 4.4 Chloride 92 L Carbon Dioxide 25.4 Anion Gap 15 BUN 41 H Creatinine 8.10 H* Estim Creat Clear Calc 9.51 L* Est GFR (MDRD) Non-Af 7 L BUN/Creatinine Ratio 5.0 L Glucose 131 H Calcium 9.7 Blood Type O POSITIVE Antibody Screen NEGATIVE Crossmatch See Detail Discharge Plan Dx/Rx/DC Orders Clinical Impression: Rectal bleeding Disposition Disposition: Acute Care Hospital [facility]
--- OUTSIDE RECORDS SUMMARY | 2025-01-30 02:20 | XMS RPT_ITS | CCD ---
Author Organization [facility] Care Team Providers Care School Clerk Name Role Phone Dr. Marlo Pollard Primary Care Provider Dr. Marlo Pollard Referring Provider [phone] Marina FIORE PANel Easley Attending Provider Abiola MALONE MD, To Garcia Primary Care Provider Rubia vailable Dr. Marlo Pollard DO Primary Care Provider Dr. Marlo Pollard DO Referring Provider Dr. Maria Ines Mckoy MD Attending Provider [phone] Dr. Jimy Jarquin MD Emergency Provider Octavio CESPEDES, Dr. Elidia Self Admit Provider Octavio CESPEDES, Dr. Elidia Self Attending Provider Octavio CESPEDES, Dr. Elidia Self Other Provider Fern CESPEDES, Dr. He Other Provider Dr. Himanshu Almaguer DO Attending Provider Nic CESPEDES, Dr. Beard Other Provider Dr. Himanshu Almaguer DO Other Provider Leelee CESPEDES, Dr. Spann Other Provider Leelee CESPEDES, Dr. Spann Referring Provider Marlo Pollard Referring Unavailable Marlo Pollard Primary Care Unavailable Robotjesse, Maria Ines Attending Unavailable Marlo Pollard Primary Care Unavailable Robotham, Maria Ines Consulting Unavailable Robotham, Maria Ines Referring Unavailable RobotJuan molinaera Attending Unavailable Marlo Pollard Referring Unavailable Robotham, Maria Ines Consulting Unavailable Robotjesse, Maria Ines Attending Unavailable Marlo Pollard Primary Care Unavailable LatriceMarlo luis Primary Care Unavailable White, Elidia L Attending Unavailable White, Elidia L Consulting Unavailable White, Elidia L Admitting Unavailable Rosina Himanshu Attending Unavailable FernKenroy stilesprakas Consulting Unavailable Nic, Chirag Consulting Unavailable Jopperi, Himanshu Consulting Unavailable Leelee, Maria Ines Referring Unavailable Maria Ines Mckoy Attending Unavailable LatriceMarlo luis Primary Care Unavailable LatriceMarlo luis Referring Unavailable LatriceMarlo luis Primary Care Unavailable Leelee, Maria Ines Attending Unavailable [facility] Marlo Primary Care Unavailable White, Elidia L Consulting Unavailable White, Elidia L Admitting Unavailable Renzo Almagueric Attending Unavailable Fern, Mickyaprakas Consulting Unavailable Nic, Chirag Consulting Unavailable Allergies Allergy Classification Reported Allergen(s) Allergy Type Date of Onset Reaction(s) Facility (7 sources) atorvastatin Drug Allergy 2 MUSCLE ACHE [facility] (1 source) atorvastatin Drug Allergy 0 Other: See Comments [facility] (1 source) atorvastatin Drug Allergy 5 [facility] Repository Medications Current Medications Medication Drug Class(es) Dates Sig (Normalized) Sig (Original) aspirin 81 mg delayed release oral tablet (8 sources) Platelet Aggregation Inhibitor, Nonsteroidal Anti-inflammatory Drug Start: 05-29-2021 take 1 tablet by mouth once daily Aspirin 81 mg tablet,delayed release (DR/EC) Active 81 mg PO DAILY May 29, 2021 12:00am On Hold: Resume on 01/26/25. Start: 05-15-2010 take 1 tablet by daniel th once daily Aspirin 81 mg ORAL Tab Take one(1) tablet daily. 30 Tab 11 05/15/2010 Active B Complex-Vitamin C-Folic Acid (Renal-Svetlana) 0.8 mg tablet (4 sources) Start: 10-13-2024 take 1 tablet by mouth once daily B Complex-Vitamin C-Folic Acid (Renal-Svetlana) 0.8 mg tablet Active 1 {tbl} PO daily October 13, 2024 12:00am calcitriol 0.18949 mg oral capsule (4 sources) Vitamin D3 Analog Start: 10-31-2024 take 1 capsule by mouth once daily Calcitriol 0.25 mcg capsule Active 0.25 ug PO DAILY October 31, 2024 12:00am cholecalciferol 0.125 mg oral capsule (8 sources) Vitamin D Start: 05-29-2021 take 1 capsule by mouth once daily Cholecalciferol (Vitamin D3) 125 mcg (5,000 unit) capsule Active 125 ug PO DAILY May 29, 2021 12:00am take 1 tablet by mouth once aleshia y cholecalciferol (VITAMIN D-3) 2,000 unit tablet Take 2,000 Units by mouth once daily. Active hydrocortisone 25 mg/ml topical cream (4 sources) Corticosteroid Start: 10-13-2024 Hydrocortisone (Proctozone-Hc) 2.5 % cream with perineal applicator Active 1 NMA RC 1 to 2 times per day as needed for hemorrhoids October 13, 2024 12:00am Hydrocortisone 2.5%/Lidocaine 5% Suppository (Cmpd) [Hydrocortisone 2.5%/Lidocaine 5% Suppository (Compound)] (Hydrocortisone ) suppository (4 sources) Start: 10-13-2024 Hydrocortisone 2.5%/Lidocaine 5% Suppository (Cmpd) [Hydrocortisone 2.5%/Lidocaine 5% Suppository (Compound)] (Hydrocortisone ) suppository Active 0 .ROUTE 30 October 13, 2024 12:00am insert rectum twice daily Start: 10-13-2024 Hydrocortisone 2.5%/Lidocaine 5% Suppository (Cmpd) [Hydrocortisone 2.5%/Lidocaine 5% Suppository (Compound)] (Hydrocortisone ) suppository Active 0 .ROUTE October 13, 2024 12:00am insert rectum twice daily lidocaine 25 mg/ml / prilocaine 25 mg/ml topical cream (4 sources) Antiarrhythmic, Amide Local Anesthetic Start: 10-31-2024 Lidocaine-Prilocaine 2.5-2.5 % cream Active 1 NMA TOPICAL DAILY as needed for SKIN October 31, 2024 12:00am lisinopril 10 mg oral tablet (1 source) Angiotensin Converting Enzyme Inhibitor Start: 06-19-2020 take 1 tablet by mouth once daily lisinopril (ZESTRIL, PRINIVIL) 10 mg tablet Take 1 tablet by mouth once daily. 90 tablet 3 06/19/2020 Active metoprolol tartrate 25 mg oral tablet (8 sources) beta-Adrenergic [place] Start: 06-19-2020 take 1 tablet by mouth twice daily Metoprolol Tartrate 25 mg tablet Active 25 mg PO TWICE A DAY May 29, 2021 12:00am ondansetron 4 mg disintegrating oral tablet (9 sources) Serotonin-3 Receptor Antagonist Start: 12-21-2024 take 1 tablet by mouth every four hours as needed for nausea and vomiting Ondansetron 4 mg tablet,disintegrating Active 4 mg PO EVERY 4 HOURS NEEDED as needed for nausea and vomiting December 21, 2024 12:00am Start: 05-29-2021 End: 11-02-2024 take 1 tablet by mouth twice daily as needed for nausea Ondansetron 4 mg tablet,disintegrating Discontinued 4 mg PO TWICE A DAY as needed for Nausea May 29, 2021 12:00am November 02, 2024 11:29am oxyCODONE hydrochloride 10 mg oral tablet (11 sources) Opioid Agonist Start: 10-13-2024 take 1 tablet by mouth three times daily as needed for pain Oxycodone 10 mg tablet Active 10 mg PO THREE TIMES A DAY as needed for pain 0 October 13, 2024 12:00am Start: 05-29-2021 End: 07-10-2021 take 1 tablet by mouth every six hours as needed for pain Oxycodone 5 mg tablet Discontinued 5 mg PO EVERY 6 HOURS as needed for Pain 0 May 29, 2021 12:00am July 10, 2021 1:55pm pravastatin sodium 40 mg oral tablet (8 sources) HMG-CoA Reductase Inhibitor Start: 06-19-2020 take 1 tablet by mouth at bedtime Pravastatin 40 mg tablet Active 40 mg PO AT BEDTIME May 29, 2021 12:00am tadalafil 20 mg oral tablet (1 source) Phosphodiesterase 5 Inhibitor Start: 06-19-2020 Tadalafil (CIALIS) 20 mg tab(s) use as needed 3 tablet 11 06/19/2020 Active Completed/Discontinued Medications Medication Drug Class(es) Dates Sig (Normalized) Sig (Original) amoxicillin 875 mg / clavulanate 125 mg oral tablet (5 sources) Penicillin-class Antibacterial Start: 12-23-2024 End: 01-21-2025 Amoxicillin-Pot Clavulanate 875-125 mg tablet Discontinued 1 {tbl} PO TWICE A DAY 14 0 December 23, 2024 12:00am January 21, 2025 10:22am start 1 week prior to OR (01/21)---start 01/13/25 BID Start: 10-13-2024 End: 10-31-2024 Amoxicillin-Pot Clavulanate (Augmentin) 500-125 mg tablet Discontinued 1 {tbl} PO daily 5 October 13, 2024 12:00am October 31, 2024 3:46am Take once a day. Take after dialysis. doxycycline monohydrate 100 mg oral tablet (4 sources) Tetracycline-class Drug Start: 10-31-2024 End: 11-02-2024 take 1 tablet by mouth twice daily Doxycycline Monohydrate 100 mg tablet Discontinued 100 mg PO TWICE A DAY October 31, 2024 12:00am November 02, 2024 11:29am 12 hr guaiFENesin 600 mg extended release oral tablet (3 sources) Start: 11-02-2024 End: 12-21-2024 take 1 tablet by mouth twice daily, then take 1 tablet by mouth every twelve hours Guaifenesin (Mucinex) 600 mg tablet extended release 12hr Discontinued 600 mg PO TWICE A DAY 10 November 02, 2024 12:00am December 21, 2024 9:32am linezolid 600 mg oral tablet (3 sources) Oxazolidinone Antibacterial Start: 11-02-2024 End: 12-21-2024 take 1 tablet by mouth every twelve hours Linezolid 600 mg tablet Discontinued 600 mg PO Q12H 10 November 02, 2024 12:00am December 21, 2024 9:32am polyethylene glycol 3350 328777 mg / potassium chloride 2970 mg / sodium bicarbonate 6740 mg / sodium chloride 5860 mg / sodium sulfate 69534 mg powder for oral solution (4 sources) Osmotic Laxative Start: 10-27-2024 End: 12-21-2024 take 4000 mL by mouth once Peg 3350-Electrolytes 236-22.74-6.74 -5.86 gram recon soln Discontinued 4000 mL PO ONCE 4000 0 October 27, 2024 12:00am December 21, 2024 9:33am until fecal effluent is clear; do not exceed a total volume of 4000 mL Problems Active Problems Problem Classification Problem Date Documented Date Episodic/Chronic Acute and unspecified renal failure (7 sources) Acute renal failure syndrome; Translations: [Acute kidney failure, unspecified] 05-08-2021 Episodic Acute myocardial infarction (1 source) Acute myocardial infarction; Translations: [Acute myocardial infarction, unspecified] Onset: 02-03-2007 02-05-2024 Chronic Anal and rectal conditions (11 sources) Anal fistula; Translations: [Anal fistula] Onset: 01-07-2025 10-15-2024 Episodic Chronic kidney disease (20 sources) Chronic progressive renal failure; Translations: [Chronic kidney disease, stage 4 (severe)] Onset: 06-17-2016 Chronic Comment on above: MOTUTHSA AT HOME Coronary atherosclerosis and other heart disease (8 sources) Coronary arteriosclerosis; Translations: [Atherosclerotic heart disease of [place] coronary artery without angina pectoris] Onset: 08-27-2011 05-29-2021 Chronic Esophageal disorders (1 source) Gastroesophageal reflux disease; Translations: [Gastro-esophageal reflux disease without esophagitis] Onset: 01-29-2007 02-05-2024 Chronic Essential hypertension (8 sources) Hypertensive disorder; Translations: [Essential (primary) hypertension] Onset: 08-17-2015 05-29-2021 Chronic Comment on above: CONTROLLED WITH MED Genitourinary congenital anomalies (1 source) Multiple renal cysts; Translations: [Polycystic kidney, unspecified] Onset: 08-21-2011 08-21-2011 Chronic Hemorrhoids (12 sources) External hemorrhoids; Translations: [Residual hemorrhoidal skin tags] Onset: 08-27-2011 08-27-2011 Episodic Hyperplasia of prostate (1 source) Benign prostatic hyperplasia; Translations: [Benign prostatic hyperplasia without lower urinary tract symptoms] Onset: 06-10-2011 06-10-2011 Chronic Immunizations and screening for infectious disease (1 source) Suspected disease caused by 2019-nCoV; Translations: [Suspected 2019 novel coronavirus infection] 07-04-2020 Episodic Other aftercare (11 sources) Patient encounter status; Translations: [Encounter for therapeutic drug level monitoring] Onset: 02-18-2014 02-18-2014 Episodic Other lower respiratory disease (8 sources) Hypoxemia; Translations: [Hypoxemia] 10-31-2024 Episodic Other lower respiratory disease (1 source) Hypoxemia; Translations: [Hypoxemia] Onset: 11-10-2024 Episodic Other male genital disorders (1 source) Male erectile dysfunction, unspecified; Translations: [Impotence of organic origin] Onset: 05-15-2010 05-15-2010 Chronic Other screening for suspected conditions (not mental disorders or infectious disease) (1 source) Encounter for screening for malignant neoplasm of colon; Translations: [Encounter for screening for malignant neoplasm of colon] Onset: 01-07-2025 Episodic Pneumonia (except that caused by tuberculosis or sexually transmitted disease) (10 sources) Pneumonia; Translations: [Pneumonia, unspecified organism] Onset: 11-10-2024 10-31-2024 Episodic Residual codes; unclassified (9 sources) Other specified health status; Translations: [Failure of outpatient treatment] Onset: 11-10-2024 10-31-2024 Episodic Skin and subcutaneous tissue infections (5 sources) Abscess; Translations: [Cellulitis, unspecified] Onset: 01-29-2007 Resolved: 12-15-2018 12-15-2018 Episodic Unclassified (1 source) Anal fistula, unspecified; Translations: [Anal fistula, unspecified] Onset: 01-07-2025 Past or Other Problems Problem Classification Problem Date Documented Da te Episodic/Chronic Abdominal hernia (1 source) Bilateral inguinal hernia; Translations: [Bilateral inguinal hernia, without obstruction or gangrene, not specified as recurrent] Onset: 09-08-2012 09-08-2012 Episodic Calculus of urinary tract (2 sources) Kidney stone; Translations: [Calculus of kidney] Onset: 05-31-2011 05-31-2011 Episodic Genitourinary symptoms and ill-defined conditions (1 source) Blood in urine; Translations: [Hematuria] Onset: 05-14-2007 Resolved: 12-15-2018 12-15-2018 Episodic Other male genital disorders (1 source) Pain in testicle; Translations: [Testicular pain, unspecified] Onset: 06-10-2011 Resolved: 12-15-2018 12-15-2018 Episodic Other male genital disorders (1 source) Hemospermia; Translations: [Hematospermia] Onset: 04-21-2013 Resolved: 12-15-2018 12-15-2018 Episodic Residual codes; unclassified (1 source) Tobacco user; Translations: [Tobacco use] Onset: 03-02-2014 03-02-2014 Episodic Results Test Name Value Interpretation Reference Range Facility [id number] 01-24-2025 MR/POSTCHRISTIANON2 [facility] Medical Records Department [address] [place] [id number] Anesthesia Postop Eval II 01/24/25 1004 MR#: [id number] Acct: [id number] Name: MARLO ADAMSON Rep #: [id number] : 1960 64 From: Isacc Cavanaugh MD PCP: Dr. Marlo Pollard, DO Status:[place] [facility] [place] Race: C [place] [facility] Anesthesia Postop Eval I Sum Postop Eval Completion status Anesthesia document: Postop Eval 1 completed: Yes Anesthesia Postop Eval I Summary Anesthesia Postop Eval I Summary: Anesthesia Postop Eval I: Assessment Summary Airway patent Yes 01/21/25 14:30 [email or web address] Spontaneous unlabored Yes 01/21/25 14:30 SCAFFOLD [email or web address] respirations Mental status Awake 01/21/25 14:30 SCAFFOLD [email or web address] nausea No 01/21/25 14:30 SCAFFOLD [email or web address] Vomiting No 01/21/25 14:30 SCAFFOLD [email or web address] Anesthesia Postop Eval I: Fluid Summary Crystalloid volume administer 200 01/21/25 14:30 [email or web address] [email or web address] (ml) Colloids volume administered ( ml) Blood Product volume administered (ml) Total IV fluid infused 200 01/21/25 14:30 [email or web address] Anesthesia Postop Eval I: Summary Notes Anesthesia Complication No 01/21/25 14:30 [email or web address] Anesthesia Complication Comment: Post-operative progress note Anesthesia: Postop Eval II Evaluation Mental status: Awake and Calm Pain Level: 0 nausea: No Vomiting: No Complications Anesthesia Complication: No 01/24/25 1004 Date Isacc Cavanaugh MD Cosigner Signature: Date CC: Signed Normal [facility] Discharge Instructionon 12-27 Discharge Instruction [facility] Medical Records Department [address] [place] [address] Instructions for Home/Discharge Instructions 01/21/25 1417 MR#: [id number] Acct: [id number] Name: MARLO ADAMSON Rep #: [id number] : 1960 64 From: Maria Ines Mckoy MD PCP: Dr. Marlo Pollard DO Status:REG [facility] Discharge Instructions Diet Discharge Diet: Light diet - advance as tolerated Activity Discharge Activity: May Shower (No Mercedez for sitz bath's) Lifting Restrictions: No lifting greater than 20 pounds x 3 weeks Dressing / Incision Call your doctor if your incision/area has: Continuous Slow Oozing, Sudden Increased Bleeding, Increased Pain/ Swelling and Increased Redness Additional Dressing/Incision Instructions:: Sitz bath's daily/as needed Follow Up Care Please Follow Up With: Maria Ines Mckoy MD When: 1 to 2 weeks call the office for follow-up appointment [phone] Test Results: Test results from this visit will be discussed in further detail at your follow-up appointment, if applicable. Discharge Plan Admission Attending Provider: Maria Ines Mckoy Primary Care Provider: Marlo Pollard Instructions Print Language: Finnish Discharge Orders/Prescriptions Prescriptions: Continued metoprolol tartrate 25 mg tablet 25 mg PO BID pravastatin 40 mg tablet 40 mg PO QHS cholecalciferol (vitamin D3) 125 mcg (5,000 unit) capsule 125 mcg PO DAILY Renal-Svetlana 0.8 mg tablet 1 tab PO QDAY oxycodone 10 mg tablet 10 mg PO TID PRN (Reason: pain) (DME) hydrocortisone 2.5%/lidocaine 5% suppository (compound) Suppository See Rx Instructions .ROUTE Qty: 30 1RF Rx Instructions: insert rectum twice daily hydrocortisone [Proctozone-HC] 2.5 % cream with perineal applicator 1 applic IA QD-BID PRN (Reason: hemorrhoids) Qty: 30 0RF lidocaine-prilocaine 2.5-2.5 % cream 1 applic topical DAILY PRN (Reason: SKIN) calcitriol 0.25 mcg capsule 0.25 mcg PO DAILY ondansetron 4 mg tablet,disintegrating 4 mg PO Q4H PRN PRN (Reason: nausea and vomiting) Held aspirin 81 mg tablet,delayed release (DR/EC) 81 mg PO DAILY Hold Instructions: Resume on 01/26/25. Referrals / Follow Up: Marlo Pollard DO [Primary Care Provider] - Disposition Disposition (needs filled in before D/C Order can be placed): Home, Self Care 01/21/25 141 Maria Ines Mckoy MD CC: Dr. Marlo Pollard, DO Signed [facility] MR/POSTOP.ANEon 01-21-2025 MR/POSTOP.ANE [facility] Medical Records Department [address] [place] [address] Anesthesia Postop Eval I 01/21/25 1429 MR#: [id number] Acct: [id number] Name: MARLO ADAMSON Rodrigo Rep #: [id number] : 1960 64 From: Rosy Daley CRNA PCP: Dr. Marlo Pollard, DO Status:REG [facility] [place] Race: C Location: [place] [address] Anesthesia: Postop Eval I Current Vital Signs Temperature: 97.4 F Pulse Rate: 92 Blood Pressure: 142/92 Respiratory Rate: 16 Pulse Ox: 100 Oxygen Delivery Method: Room Air Assessment Airway patent: Yes Spontaneous unlabored respirations: Yes Mental status: Awake nausea: No Vomiting: No Anesthesia Complication: No Fluid Hydration Crystalloid volume administer (ml): 200 Total IV fluid infused: 200 Progress Note Anesthesia document: Postop Eval 1 completed: Yes 01/21/25 1430 Date Rosy Daley CRNA Cosigner Signature: Date CC: Signed [facility] Operative Reporton Operative Report [facility] Medical Records Department [address] [place] [address] Operative Report 01/21/25 1412 MR#: [id number] Acct: [id number] Name: MARLO ADAMSON Rodrigo Rep #: [id number] : 1960 64 From: Maria Ines Mckoy MD PCP: Dr. Marlo Pollard, DO Status:DEP [facility] [facility] Operative Report (Standard) Operative Information Date of Procedure: 01/21/25 Pre-Operative Diagnosis: Anal fistula, hemorrhoids with bleeding Post-Operative Diagnosis: Internal/external hemorrhoids with bleeding, left gluteal subcutaneous sinus tract Surgery/Procedure Performed: Hemorrhoidectomy x 2, excision of left gluteal subcutaneous sinus tract security ambassador: Yes Engine Maintenance Mechanic: Sam Amin Tasks completed by speech correction assistant: Opening closing and Retracting Type of Anesthesia: General/Supplemental RN Documented Start/Stop Times: Operation Date: 01/21/25 11:30 Case Time Into Pre-Op 01/21/25 09:54 Out of Pre-Op 01/21/25 12:43 Anesthesia Start 01/21/25 12:46 Into Room 01/21/25 12:46 Procedure Start 01/21/25 13:12 Procedure End 01/21/25 14:10 Anesthesia End 01/21/25 14:24 Out of Room 01/21/25 14:24 Into Recovery 01/21/25 14:26 Out of Recovery 01/21/25 15:16 Into Phase II Recovery 01/21/25 15:17 Out of Phase II 01/21/25 16:27 Procedure Start Time: 13:12 Procedure Stop Time: 14:10 Select all DRAINS/GRAFTS/IMPLANTS that apply: None Special Medications: none Estimated Blood Loss: 15 cc Specimen collected: Yes Description of specimen(s) removed: Hemorrhoidectomy, left gluteal sinus tract Description of surgery: The patient was brought into the operating room and general anesthesia was induced. He was placed in prone jackknife lithotomy position. A timeout was completed verifying correct patient, procedure, site, position, and special equipment prior to beginning the procedure. The buttocks were taped apart. Perineum was prepared prepped and draped in standard sterile fashion. Local anesthesia was injected as a perianal nerve block-Exparel 20 cc used throughout the case. Anus carefully dilated. Small Hill-Melendez retractor was introduced and 3 marginal pedicles identified. He was noted to have internal and external hemorrhoids at all 3 cushions largest were in left lateral and right anterior. Right gluteal possible fistula injected with peroxide no peroxide seen in the anus. Lacrimal probes used and tracked more laterally and not towards the anus. Left lateral and right anterior pedicles were excised in turn in the following fashion. 0 Vicryl suture was placed at the base of each of the pedicles and retracted externally to exteriorize the hemorrhoidal pedicles. An elliptical incision was made extending from perianal skin to anal rectal ring including both internal and external hemorrhoids and excising a minimal amount of anoderm. Cautery was used to separate the hemorrhoid from the underlying tissue. Careful not to involve any of the sphincter muscle. The pedicle was indicated from the base and sent to pathology. Hemostasis was achieved using electrocautery. Following the hemostasis the skin and mucosal incisions were closed with the running lock stitch of 2-0 chromic. A large Surgifoam with dibucaine was placed in the anus. Left gluteal sinus tract was excised with an elliptical incision around the tract exit site. A gauze pad tucked between the gluteal folds. The patient tolerated procedure well and was extubated and taken to the postanesthesia care unit in stable condition. Surgical Findings: See operative report Complications Complications: No 01/24/25 0715 Cosigner Signature (if applicable): CC: Dr. Marlo Pollard DO; Dr. Maria Ines Mckoy MD Signed [facility] MR/PAT.ANEon 01-07-2025 MR/PAT.[facility] Medical Records Department [address] [place] [address] PAT - Anesthesia 01/07/25 1149 MR#: [id number] Acct: [id number] Name: MARLO ADAMSON Rep #: [id number] : 1960 64 From: Greg Cortes MD PCP: Dr. Marlo Pollard DO Status:PRE [facility] [place] [place] Race: C [place] [facility] Pre-Assessment Diagnosis/Proposed Procedure Planned Operative Procedure(s): Exam Under Anesthesia hemorrhoidectomy and possible fistulotomy Anesthesia History Anesthesia History - quality control coordinator: Anesthesia History - quality control coordinator Hx Hospitalization Yes: 4-25 infection 01/07/25 09:36 Any Problems With Anesthesia No 01/07/25 09:36 Cholinesterase deficiency No 01/07/25 09:36 You/Your Family Experience No 01/07/25 09:36 fever (hyperthermia) with Relationship Recent Exposure to Contagious No 12/22/24 07:09 Disease Does patient have nerve No 01/07/25 09:36 stimulator Patient instructed to have device shut off --Does patient have Pacemaker or ICD? When Was Last Pacemaker Check QUESTION #4 FULL TEXT: You/Your Family Experience fever (hyperthermia) with Anesthesia Last Oral Intake Last Oral intake: Last Oral Intake NPO since Meds taken in AM with sips of water? Meds patient instructed to take am of surgery PONV PONV - quality control coordinator: PONV - quality control coordinator Female No 01/07/25 09:36 HX of Motion Sickness No 01/07/25 09:36 HX of N/V After Surgery No 01/07/25 09:36 Non-Smoker No 01/07/25 09:36 Duration of Surgery greater No 01/07/25 09:36 than 60 minutes Number of Risk Factors PONV Score Height Weight Height Weight: Anesthesia: Height Weight Height 5 ft 10 in 12/22/24 06:33 Respiratory Assessment Respiratory Assessment - quality control coordinator: Respiratory Tract Infection Hx - quality control coordinator Hx Respiratory Tract Infection No 01/07/25 09:36 STOP Sleep Apnea STOP Sleep Apnea - quality control coordinator: STOP Sleep Apnea - quality control coordinator Hx Hypertension Yes 01/07/25 09:36 Hx Sleep Apnea No 01/07/25 09:36 CPAP BIPAP Do you snore loudly (louder No 01/07/25 09:36 than talking or can be heard Do you often feel tired/ No 01/07/25 09:36 fatigued/ sleepy during daytime? Has anyone observed you stop No 01/07/25 09:36 breathing during sleep? STOP Results Negative 01/07/25 09:36 QUESTION #5 FULL TEXT : Do you snore loudly (louder than talking or can be heard through closed doors)? 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 Specify any problems Hx of Preganancy in last 3 N/A 01/07/25 09:36 Months Nurse Filling Out Transfusion MIGUEL ÁNGEL 01/07/25 09:36 Questions: Date: 01/07/25 01/07/25 09:36 Time: 09:38 01/07/25 09:36 Patient unable to answer at this time (ie. confused, unrespo /Reproduction History /Reproductive History - quality control coordinator: /Reproductive Hx- quality control coordinator Hx Now No 01/07/25 09:36 Gestational Age (in weeks): EDC: Hx Hx Para Hx Section SAB No 01/07/25 09:36 [facility] Medical History (Updated 01/07/25 @ 10:25 by Destinee Del Valle) History of hiatal hernia Wears glasses History of steroid therapy Arthritis Low iron Back pain Syncope Difficulty swallowing Heartburn Smoker Shortness of breath on exertion Leg cramps History of pain when walking History of edema MRSA (methicillin resistant staph aureus) culture positive ESRD (end stage renal disease) ESRD on hemodialysis ( 10/31/24) Anal fistula Hemorrhoids, internal, with bleeding Wears dentures Marijuana use Polycystic renal disease DVT (deep venous thrombosis) High cholesterol History of echocardiogram Cardiology follow-up encounter Hemorrhoids, internal Myocardial infarction HTN (hypertension) Osteoarthritis CAD (coronary artery disease) Home Medications ???Medication ???Instructions ???Recorded ???Last Taken ???Type aspirin 81 mg tablet,delayed 81 mg PO DAILY (more content not included)... Normal [facility] Colonoscopy Reporton 025 Colonoscopy Report [facility] Medical Records Department [address] [place] [address] Colonoscopy Report MR#: [id number] Acct: [id number] Name: MARLO ADAMSON Rep #: [id number] : 1960 64 From: Maria Ines Mckoy MD PCP: Dr. Marlo Pollard, DO Status:REG [facility] [place] Patient Name: Marlo Adamson Procedure Date: 12/22/2024 8:03 AM Date of : 1960 Age: 64 Procedure: Colonoscopy Indications: Screening for colorectal malignant neoplasm Providers: Maria Ines Mckoy MD Medicines: Monitored Anesthesia Care Patient Profile: This is a 64 year old male. Last Colonoscopy: none. The patient's first colonoscopy is today. Complications: No immediate complications. Procedure: Pre-Anesthesia Assessment: - Prior to the procedure, a History and Physical was performed, and patient medications and allergies were reviewed. The patient's tolerance of previous anesthesia was also reviewed. The risks and benefits of the procedure and the sedation options and risks were discussed with the patient. All questions were answered, and informed consent was obtained. Prior Anticoagulants: The patient has taken no anticoagulant or antiplatelet agents. ASA Grade Assessment: Per anesthesia. After reviewing the risks and benefits, the patient was deemed in satisfactory condition to undergo the procedure. After I obtained informed consent, the scope was passed under direct vision. Throughout the procedure, the patient's blood pressure, pulse, and oxygen saturations were monitored continuously. The Colonoscope was introduced through the anus and advanced to the cecum, identified by the appendiceal orifice, ileocecal valve and palpation. The colonoscopy was performed without difficulty. The patient tolerated the procedure well. The quality of the bowel preparation was good. Scope In: 8:11:49 AM Scope Withdrawal Time 0 hours 10 minutes 53 seconds Scope Out: 8:28:06 AM Total Procedure Duration Time 0 hours 16 minutes 17 seconds Findings: Non-bleeding external and internal hemorrhoids were found. The hemorrhoids were small and Grade III (internal hemorrhoids that prolapse but require manual reduction). A less than 5 mm polyp was found in the ascending colon. The polyp was semi-pedunculated. The polyp was removed with a hot snare. Resection and retrieval were complete. Multiple small-mouthed diverticula were found in the sigmoid colon and descending colon. At about 10:00 on the left side???perianal- indurated tissue with a small opening no active drainage, no obvious tract seen inside the rectum or felt on exam Impression: - Non-bleeding external and internal hemorrhoids. - One less than 5 mm polyp in the ascending colon, removed with a hot snare. Resected and retrieved. - Diverticulosis in the sigmoid colon and in the descending colon. - Likely anal fistula exterior opening at about 10:00 left side with some induration no erythema, unable to appreciate the internal opening Recommendation: - Discharge patient to home. - High fiber diet. - Continue present medications. - Await pathology results. - Repeat colonoscopy in 5 years for surveillance based on pathology results. Procedure Code(s): --- Professional --- 66676, PT, Colonoscopy, flexible; with removal of tumor(s), polyp(s), or other lesion(s) by snare technique Diagnosis Code(s): --- Professional --- Z12.11, Encounter for screening for malignant neoplasm of colon K64.2, Third degree hemorrhoids D12.2, Benign neoplasm of ascending colon K57.30, Diverticulosis of large intestine without perforation or abscess without bleeding CPT copyright 2021 [employer]. All rights reserved. The codes documented in this report are preliminary and upon block layer review may be revised to meet current compliance requirements. MD Maria Ines Patiño MD 12/22/2024 8:44:55 AM This report has been signed electronically. Number of Addenda: 0 Note Initiated On: 12/22/2024 8:03 AM 12/22/24843 Date Maria Ines Mckoy MD Cosigner Signature: Date (if indicated) CC: Dr. Marlo Pollard DO; Dr. Maria Ines Mckoy MD Date Dictated: 12/22/24802 Date Transcribed: Machine Baster: TR Signed [facility] MR/POSTOP.[facility] 12-22-2024 MR/POSTOP.[facility] Medical Records Department [address] [place] [address] Anesthesia Postop Eval I 12/22/2442 MR#: [id number] Acct: [id number] Name: MARLO ADAMSON Rep #: [id number] : 1960 64 From: Joseph Hu PCP: Dr. Marlo Pollard DO Status:REG [facility] Y Race: C Location: [place] [address] Anesthesia: Postop Eval I Current Vital Signs Temperature: 97.8 F Pulse Rate: 63 Blood Pressure: 101/68 Respiratory Rate: 16 Pulse Ox: 100 Oxygen Delivery Method: Room Air Assessment Airway patent: Yes Spontaneous unlabored respirations: Yes Mental status: Asleep nausea: No Vomiting: No Anesthesia Complication: No Fluid Hydration Crystalloid volume administer (ml): 200 Total IV fluid infused: 200 Progress Note Anesthesia document: Postop Eval 1 completed: Yes 12/22/24 0843 Date Joseph Larkinignrenzo Signature: Date CC: Signed Normal [facility] MR/[id number] 12-22-2024 [facility] Medical Records Department [address] [place] [address] Anesthesia Postop Eval II 12/22/24 1001 MR#: [id number] Acct: [id number] Name: MARLO ADAMSON Rodrigo Rep #: [id number] : 1960 64 From: Yuly Champagne PCP: Dr. Marlo Pollard, DO Status:[facility] Y Race: C Location: [place] Anesthesia Postop Eval I Sum Postop Eval Completion status Anesthesia document: Postop Eval 1 completed: Yes Anesthesia Postop Eval I Summary Anesthesia Postop Eval I Summary: Anesthesia Postop Eval I: Assessment Summary Airway patent Yes 12/22/24 08:43 [email or web address] Spontaneous unlabored Yes 12/22/24 08:43 [email or web address] respirations Mental status Asleep 12/22/24 08:43 [email or web address] nausea No 12/22/24 08:43 [email or web address] Vomiting No 12/22/24 08:43 [email or web address] Anesthesia Postop Eval I: Fluid Summary Crystalloid volume administer 200 12/22/24 08:43 [email or web address] (ml) Colloids volume administered ( ml) Blood Product volume administered (ml) Total IV fluid infused 200 12/22/24 08:43 [email or web address] Anesthesia Postop Eval I: Summary Notes Anesthesia Complication No 12/22/24 08:43 [email or web address] Anesthesia Complication Comment: Post-operative progress note Anesthesia: Postop Eval II Evaluation Mental status: Awake and Calm Pain Level: 0 nausea: No Vomiting: No Complications Anesthesia Complication: No 12/22/24 1001 Date Yuly Goldmantylerrenzo Manuela Signature: Date CC: Signed Normal [facility] Surgery Specimen Level Vincenzo 12-22-2024 Surgery Specimen Level IV Patient Age/Sex Location Account Attending Physician MARLO ADAMSON 64/M EN [id number] Dr. Maria Ines Mckoy MD Specimen: [id number] Received: 12/22/24 Status: MARIKA Reilly Num: [id number] Spec Type: COLON BX Subm Dr: Dr. Maria Ines Mckoy MD HEADER OPERATION: Colonoscopy and polypectomy PRE-OP DIAGNOSIS: Screening, hemorrhoids, anal fistula TISSUE SUBMITTED: A- Ascending colon polyp MICROSCOPIC DIAGNOSIS A. Ascending colon, polyp, biopsy: Sessile serrated lesion. MICROSCOPIC DESCRIPTION Slides are reviewed. GROSS DESCRIPTION A. Received in formalin in a container labeled with the patient's name, date of , and ascending colon polyp is a 0.6 x 0.5 x 0.4 cm walden-pink and polypoid piece of mucosal tissue. The resection margin is inked black, and it is bisected. Submitted entirely in A1. [facility] 12-22-2024 CPT:58397 Patient Age/Sex Location Account Attending Physician MARLO ADAMSON/M EN [id number] Dr. Maria Ines Mckoy MD Signed (signature on file) Dr. Jazmine Weber MD 12/27/24 1205 Normal [facility] Comment on above: Performed By: #### M 300.4600, M300.4500 #### [facility] [address] [place], [place], [id number] /[place]io 12-21-2024 MR/YOLANDA.ALIVIA [facility] Medical Records Department [address] [place] [address] PAT - Anesthesia 12/21/24 1016 MR#: [id number] Acct: [id number] Name: MARLO ADAMSON Rodrigo Rep #: [id number] : 1960 64 From: Isacc Cavanaugh MD PCP: Dr. Marlo Pollard, Status:PRE [facility] [place] Y Race: C Location: EN Pre-Assessment Diagnosis/Proposed Procedure Planned Operative Procedure(s): COLONOSCOPY Anesthesia History Anesthesia History - quality control coordinator: Anesthesia History - quality control coordinator Hx Hospitalization Yes: 10/2024 FLU/DIALYSIS 12/21/24 09:34 ISSUES Any Problems With Anesthesia No 12/21/24 09:34 Cholinesterase deficiency No 12/21/24 09:34 You/Your Family Experience No 12/21/24 09:34 fever (hyperthermia) with Relationship Recent Exposure to Contagious No 11/12/21 11:37 Disease Does patient have nerve No 12/21/24 09:34 stimulator Patient instructed to have device shut off --Does patient have Pacemaker or ICD? When Was Last Pacemaker Check QUESTION #4 FULL TEXT: You/Your Family Experience fever (hyperthermia) with Anesthesia Last Oral Intake Last Oral intake: Last Oral Intake NPO since Meds taken in AM with sips of water? Meds patient instructed to take am of surgery PONV PONV - quality control coordinator: PONV - quality control coordinator Female No 12/21/24 09:34 HX of Motion Sickness No 12/21/24 09:34 HX of N/V After Surgery No 12/21/24 09:34 Non-Smoker No 12/21/24 09:34 Duration of Surgery greater No 12/21/24 09:34 than 60 minutes Number of Risk Factors PONV Score Height Weight Height Weight: Anesthesia: Height Weight Height 5 ft 10 in 10/31/24 16:55 Respiratory Assessment Respiratory Assessment - quality control coordinator: Respiratory Tract Infection Hx - quality control coordinator Hx Respiratory Tract Infection No 12/21/24 09:34 STOP Sleep Apnea STOP Sleep Apnea - quality control coordinator: STOP Sleep Apnea - quality control coordinator Hx Hypertension Yes: FAIRLY CONTROLLED WITH 12/21/24 09:34 MED Hx Sleep Apnea No 12/21/24 09:34 CPAP BIPAP Do you snore loudly (louder No 12/21/24 09:34 than talking or can be heard Do you often feel tired/ Yes 12/21/24 09:34 fatigued/ sleepy during daytime? Has anyone observed you stop No 12/21/24 09:34 breathing during sleep? STOP Results Positive 12/21/24 09:34 QUESTION #5 FULL TEXT : Do you snore loudly (louder than talking or can be heard through closed doors)? 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 Specify any problems Hx of Preganancy in last 3 N/A 12/21/24 09:34 Months Nurse Filling Out Transfusion DSCHRIBER 12/21/24 09:34 Questions: Date: 12/21/24 12/21/24 09:34 Time: 09:37 12/21/24 09:34 Patient unable to answer at this time (ie. confused, unrespo /Reproduction History /Reproductive History - quality control coordinator: /Reproductive Hx- quality control coordinator Hx Now No 12/21/24 09:34 Gestational Age (in weeks): EDC: Hx Hx Para Hx Section SAB No 12/21/24 09:34 [facility] Medical History (Updated 12/21/24 @ 09:47 by Destinee Del Valle) Wears glasses History of steroid therapy Arthritis Low iron Back pain Syncope Difficulty swallowing Heartburn Smoker Shortness of breath on exertion Leg cramps History of pain when walking History of edema MRSA (methicillin resistant staph aureus) culture positive ESRD (end stage renal disease) ESRD on hemodialysis ( 10/31/24) Anal fistula Hemorrhoids, internal, with bleeding Wears dentures Marijuana use Polycystic renal disease DVT (deep venous thrombosis) High cholesterol History of echocardiogram Cardiology follow-up encounter Hypertension Hemorrhoids, internal Myocardial infarction HTN (hypertension) Osteoarthritis Anxiety and depression CAD (coronary artery disease) Home Medications ???Medication ???Instructions ???Recorded ???Last Taken ???Type aspirin 81 mg tablet,delayed 81 mg PO DAILY 05/29/21 12/17/24 H is (more content not included)... Normal [facility] Absolute lymphocyte countOrd ered By: Himanshu Almaguer on 11-02-2024 Lymphocytes Auto (Unsp spec) [#/Vol] 0.96 10*3/uL 0.83-4.51 [facility] Absolute neutrophil countOrd ered By: Himanshu Almaguer on 11-02-2024 Neutrophils (Bld) [#/Vol] 5.6 10*3/uL 2.0-7.7 [facility] Anion gap in Serum or Plasma Ordered By: Himanshu Almauger on 11-02-2024 Anion gap [Moles/Vol] 14 mmol/L 5-15 [facility] Automated lymphocyte count a s percentage of total leukocytesOrdered By: Himanshu Calderongary on 11-02-2024 Lymphocytes/100 WBC Auto (Unsp spec) 12.6 % Low 19-41 [facility] BUN/creatinine ratioOrdered By: Himanshuadriane Almaguer on 11-02-2024 Urea nitrogen/Creatinine [Mass ratio] 7.0 mg/mg Low 10-20 [facility] Basic Metabolic Profile (BMP )on 11-02-2024 BUN/CRE 7.0 RATIO Low 10-20 [facility] Comment on above: Performed By: #### M 300.4600, M300.4500 #### [facility] [address] [place], [address] Calcium [Mass/Vol] 8.9 mg/dL Normal 7.6-11.0 [facility] Comment on above: Performed By: #### M 300.4600, M300.4500 #### [facility] [address] [place], [address] Chloride [Moles/Vol] 98 mmol/L Normal 98-108 [facility] Comment on above: Performed By: #### M 300.4600, M300.4500 #### [facility] [address] [place], [address] CO2 [Moles/Vol] 20.8 mmol/L Low 21.0-32.0 [facility] Comment on above: Performed By: #### M 300.4600, M300.4500 #### [facility] [address] [place], [address] Creatinine [Mass/Vol] 5.94 mg/dL High 0.70-1.20 [facility] Comment on above: Performed By: #### M 300.4600, M300.4500 #### [facility] [address] [place], [address] ECRCL 12.55 ml/min Low 50-250 [facility] Comment on above: Performed By: #### M 300.4600, M300.4500 #### [facility] [address] [place], [address] GAP 14 Normal 5-15 [facility] Comment on above: Performed By: #### M 300.4600, M300.4500 #### [facility] [address] [place], [address] GFR/1.73 sq M.predicted among non-blacks MDRD (S/P/Bld) [Vol rate/Area] 10 mL/min/{1.73_m2} Low >60 [facility] Comment on above: Result Comment: mL/m in/1.73m2 CKD-EPI Creatinine Equation (2020) Performed By: #### M 300.4600, M300.4500 #### [facility] [address] [place], [address] Glucose [Mass/Vol] 88 mg/dL Normal 70-99 [facility] Comment on above: Performed By: #### M 300.4600, M300.4500 #### [facility] [address] [place], [address] Potassium [Moles/Vol] 3.8 mmol/L Normal 3.3-5.1 [facility] Comment on above: Performed By: #### M 300.4600, M300.4500 #### [facility] [address] [place], [address] Sodium [Moles/Vol] 134 mmol/L Normal 133-145 [facility] Comment on above: Performed By: #### M 300.4600, M300.4500 #### [facility] [address] [place], [address] Urea nitrogen [Mass/Vol] 41 mg/dL High 4-19 [facility] Comment on above: Performed By: #### M 300.4600, M300.4500 #### [facility] [address] [place], [address] Basophil percentageOrdered B y: Himanshu Almaguer on 11-02-2024 Basophils/100 WBC (Bld) 0.4 % 0-1 [facility] CBC W/Diff, Automatedon Absolute Lymph 0.96 X10 3/uL Normal 0.83-4.51 [facility] Comment on above: Performed By: #### M 300.4600, M300.4500 #### [facility] [address] [place], [address] Absolute Neut 5.6 X10 3/uL Normal 2.0-7.7 [facility] Comment on above: Performed By: #### M 300.4600, M300.4500 #### [facility] [address] [place], [address] Basophils/100 WBC (Bld) 0.4 % Normal 0-1 [facility] Comment on above: Performed By: #### M 300.4600, M300.4500 #### [facility] [address] [place], [address] Eosinophils/100 WBC (Bld) 1.7 % Normal 0-5 [facility] Comment on above: Performed By: #### M 300.4600, M300.4500 #### [facility] [address] [place], [address] Erythrocyte distribution width (RBC) [Ratio] 13.6 % Normal 11.6-14.6 [facility] Comment on above: Performed By: #### M 300.4600, M300.4500 #### [facility] [address] [place], [address] Hematocrit (Bld) [Volume fraction] 36.8 % Low 40-54 [facility] Comment on above: Performed By: #### M 300.4600, M300.4500 #### [facility] [address] [place], [address] Hemoglobin (Bld) [Mass/Vol] 12.4 g/dL Low 13.0-16.5 [facility] Comment on above: Performed By: #### M 300.4600, M300.4500 #### [facility] [address] [place], [address] IG% 2.100 High 0.0-0.9 [facility] Comment on above: Result Comment: IG% - Immature Granulocytes (promyelocytes, myelocytes and metamyelocytes) > 1% indicates that a LEFT SHIFT is Present. Performed By: #### M 300.4600, M300.4500 #### [facility] [address] [place], [address] Lymphocytes/100 WBC (Bld) 12.6 % Low 19-41 [facility] Comment on above: Performed By: #### M 300.4600, M300.4500 #### [facility] [address] [place], [address] MCH (RBC) [Entitic mass] 31.1 pg Normal 27.0-32.0 [facility] Comment on above: Performed By: #### M 300.4600, M300.4500 #### [facility] [address] [place], [address] MCHC (RBC) [Mass/Vol] 33.7 g/dL Normal 32-36 [facility] Comment on above: Performed By: #### M 300.4600, M300.4500 #### [facility] [address] [place], [address] MCV (RBC) [Entitic vol] 92.2 fL Normal 80-94 [facility] Comment on above: Performed By: #### M 300.4600, M300.4500 #### [facility] [address] [place], [address] Monocytes/100 WBC (Bld) 9.8 % Normal 0-10 [facility] Comment on above: Performed By: #### M 300.4600, M300.4500 #### [facility] [address] [place], [address] Neutrophils/100 WBC (Bld) 73.4 % High 47-70 [facility] Comment on above: Performed By: #### M 300.4600, M300.4500 #### [facility] [address] [place], [address] Nucleated RBC (Bld) [#/Vol] 0 10*3/uL Normal 0-5 [facility] Comment on above: Performed By: #### M 300.4600, M300.4500 #### [facility] [address] [place], [address] Platelet mean volume (Bld) [Entitic vol] 9.4 fL Normal 6.2-12.0 [facility] Comment on above: Performed By: #### M 300.4600, M300.4500 #### [facility] [address] [place], [address] Platelets (Bld) [#/Vol] 218 10*3/uL Normal 150-450 [facility] Comment on above: Performed By: #### M 300.4600, M300.4500 #### [facility] [address] [place], [address] RBC (Bld) [#/Vol] 3.99 10*6/uL Low 4.6-6.2 [facility] Comment on above: Performed By: #### M 300.4600, M300.4500 #### [facility] [address] [place], [address] RDW SD 46.2 fl High 35.1-43.9 [facility] Comment on above: Performed By: #### M 300.4600, M300.4500 #### [facility] [address] [place], [address] WBC (Bld) [#/Vol] 7.6 10*3/uL Normal 4.4-11.0 [facility] Comment on above: Performed By: #### M 300.4600, M300.4500 #### [facility] [address] [place], [address] Carbon dioxide, total [Moles /volume] in Central venous bloodOrdered By: Himanshu Almaguer on 11-02-2024 CO2 [Moles/Vol] 20.8 mmol/L Low 21.0-32.0 [facility] Chloride assayOrdered By: Renzo Almaguer on 11-02-2024 Chloride [Moles/Vol] 98 mmol/L 98-108 [facility] Eosinophil percentageOrdered By: Himanshu Almaguer on 11-02-2024 Eosinophils/100 WBC (Bld) 1.7 % 0-5 [facility] Erythrocyte distribution wid th (RBC) [Ratio]Ordered By: Himanshu Almaguer on 11-02-2024 Erythrocyte distribution width (RBC) [Entitic vol] 46.2 fL High 35.1-43.9 [facility] Erythrocyte distribution wid th ratioOrdered By: Himanshu Almaguer on 11-02-2024 Erythrocyte distribution width (RBC) [Ratio] 13.6 % 11.6-14.6 [facility] Erythrocyte distribution wid th standard deviationOrdered By: Himanshu Almaguer on 11-02-2024 Erythrocyte distribution width (RBC) [Ratio] 46.2 fl High 35.1-43.9 [facility] Estimation of creatinine nicolas aranceOrdered By: Himanshu Almaguer on 11-02-2024 Estimated Creatinine Clearance Calc 12.55 ml/min Low 50-250 [facility] GFR/1.73 sq M.predicted joann g non-blacks MDRD (S/P/Bld) [Vol rate/Area]Ordered By: Himanshu Almaguer on 11-02-2024 Estimated GFR (MDRD) Non-Af Amer 10 Low >60 [facility] Comment on above: mL/min/1.73m2 CKD-EP I Creatinine Equation (2020) Glomerular filtration rate ( GFR) estimation/1.73 sq m using serum, plasma, or whole bOrdered By: Himanshu Almaguer on 11-02-2024 GFR/1.73 sq M.predicted among non-blacks MDRD (S/P/Bld) [Vol rate/Area] 10 mL/min/{1.73_m2} Low >60 [facility] Comment on above: mL/min/1.73m2 CKD-EP I Creatinine Equation (2020) Hematocrit Auto (Bld) [Volum e fraction]Ordered By: Himanshu Almaguer on 11-02-2024 Hematocrit (Bld) [Volume fraction] 36.8 % Low 40-54 [facility] Hemoglobin measurementOrdere d By: Himanshu Almaguer on 11-02-2024 Hemoglobin (Bld) [Mass/Vol] 12.4 g/dL Low 13.0-16.5 [facility] Immature granulocytes/100 WB C Auto (Bld)Ordered By: Himanshu Almaguer on 11-02-2024 Immature granulocytes/100 WBC (Bld) 2.100 % High 0.0-0.9 [facility] Comment on above: IG% - Immature Granu locytes (promyelocytes, myelocytes and metamyelocytes) > 1% indicates that a LEFT SHIFT is Present. Lymphocytes Auto (Unsp spec) [#/Vol]Ordered By: Himanshu Almaguer on 11-02-2024 Lymphocytes (Bld) [#/Vol] 0.96 10*3/uL 0.83-4.51 [facility] Lymphocytes/100 WBC Auto (Un sp spec)Ordered By: Himanshu Almaguer on 11-02-2024 Lymphocytes/100 WBC (Bld) 12.6 % Low 19-41 [facility] MCV (mean corpuscular volume ) determinationOrdered By: Himanshu Almaguer on 11-02-2024 MCV (RBC) [Entitic vol] 92.2 fL 80-94 [facility] Mean corpuscular hemoglobin (MCH) determinationOrdered By: Himanshu Almaguer on 11-02-2024 MCH (RBC) [Entitic mass] 31.1 pg 27.0-32.0 [facility] Mean corpuscular hemoglobin concentration (MCHC) determinationOrdered By: Himanshu Almaguer on 11-02-2024 MCHC (RBC) [Mass/Vol] 33.7 g/dL 32-36 [facility] Mean platelet volume determi nationOrdered By: Himanshu Almaguer on 11-02-2024 Platelet mean volume (Bld) [Entitic vol] 9.4 fL 6.2-12.0 [facility] Monocyte percentageOrdered B y: Himanshu Almaguer on 11-02-2024 Monocytes/100 WBC (Bld) 9.8 % 0-10 [facility] Neutrophil percentageOrdered By: Himanshu Almaguer on 11-02-2024 Neutrophils/100 WBC (Bld) 73.4 % High 47-70 [facility] Nucleated red blood cell per centageOrdered By: Himanshu Almaguer on 11-02-2024 Nucleated RBC/100 WBC (Bld) [Ratio] 0 % 0-5 [facility] Platelet countOrdered By: Renzo Almaguer on 11-02-2024 Platelets (Bld) [#/Vol] 218 10*3/uL 150-450 [facility] Potassium (Unsp spec) [Mass/ Vol]Ordered By: Himanshu Almaguer on 11-02-2024 Potassium [Moles/Vol] 3.8 mmol/L 3.3-5.1 [facility] Potassium measurement (mass/ volume)Ordered By: Himanshu Almaguer on 11-02-2024 Potassium (Unsp spec) [Mass/Vol] 3.8 mmol/L 3.3-5.1 [facility] RBC Auto (Bld) [#/Vol]Ordere d By: Himanshu Almaguer on 11-02-2024 RBC (Bld) [#/Vol] 3.99 10*6/uL Low 4.6-6.2 [facility] Respiratory Cultureon 2024 RESPC List Antibiotics [place] 48 Hours? zosyn, doxycycline Mixed normal respiratory jose enrique. No Streptococcus pneumoniae, beta-hemolytic Streptococcus or Staphylococcus aureus isolated. Normal [facility] Comment on above: Performed By: #### M 8200.1000 #### [facility] [address] [place], [address] Serum creatinine measurement (mass/volume)Ordered By: Himanshu Almaguer on 11-02-2024 Creatinine [Mass/Vol] 5.94 mg/dL High 0.70-1.20 [facility] Serum glucose measurement (m ass/volume)Ordered By: Himanshu Almaguer on 11-02-2024 Glucose [Mass/Vol] 88 mg/dL 70-99 [facility] Serum or plasma calcium cuong urement (mass/volume)Ordered By: Himanshu Almaguer on 11-02-2024 Calcium [Mass/Vol] 8.9 mg/dL 7.6-11.0 [facility] Serum or plasma urea nitroge n measurement (mass/volume)Ordered By: Himanshu Almaguer on 11-02-2024 Urea nitrogen [Mass/Vol] 41 mg/dL High 4-19 [facility] Sodium levelOrdered By: Himanshu Almaguer on 11-02-2024 Sodium [Moles/Vol] 134 mmol/L 133-145 [facility] White blood cell (WBC) count Ordered By: Himanshu Almaguer on 11-02-2024 WBC (Bld) [#/Vol] 7.6 10*3/uL 4.4-11.0 [facility] Basic Metabolic Profile (BMP )on 11-01-2024 BUN/CRE 8.2 RATIO Low 10-20 [facility] Comment on above: Performed By: #### L 100.0100, L500.2500 #### [facility] [address] [place], [address] Calcium [Mass/Vol] 8.9 mg/dL Normal 7.6-11.0 [facility] Comment on above: Performed By: #### L 100.0100, L500.2500 #### [facility] [address] [place], [address] Chloride [Moles/Vol] 92 mmol/L Low 98-108 [facility] Comment on above: Performed By: #### L 100.0100, L500.2500 #### [facility] [address] [place], [address] CO2 [Moles/Vol] 21.9 mmol/L Normal 21.0-32.0 [facility] Comment on above: Performed By: #### L 100.0100, L500.2500 #### [facility] [address] [place], [address] Creatinine [Mass/Vol] 7.59 mg/dL Invalid Interpretation Code 0.70-1.20 [facility] Comment on above: Result Comment: Crit ical Result(s) Called at:0559 by: DINORAH JOHNSTON TO ALEN WARREN??Results read back by same. Performed By: #### L 100.0100, L500.2500 #### [facility] [address] [place], [address] ECRCL 9.82 ml/min Invalid Interpretation Code 50-250 [facility] Comment on above: Performed By: #### L 100.0100, L500.2500 #### [facility] [address] [place], [address] GAP 18 High 5-15 [facility] Comment on above: Performed By: #### L 100.0100, L500.2500 #### [facility] [address] [place], [address] GFR/1.73 sq M.predicted among non-blacks MDRD (S/P/Bld) [Vol rate/Area] 7 mL/min/{1.73_m2} Low >60 [facility] Comment on above: Result Comment: mL/m in/1.73m2 CKD-EPI Creatinine Equation (2020) Performed By: #### L 100.0100, L500.2500 #### [facility] [address] [place], [address] Glucose [Mass/Vol] 101 mg/dL High 70-99 [facility] Comment on above: Performed By: #### L 100.0100, L500.2500 #### [facility] [address] [place], [address] Potassium [Moles/Vol] 3.4 mmol/L Normal 3.3-5.1 [facility] Comment on above: Performed By: #### L 100.0100, L500.2500 #### [facility] [address] [place], [address] Sodium [Moles/Vol] 132 mmol/L Low 133-145 [facility] Comment on above: Performed By: #### L 100.0100, L500.2500 #### [facility] [address] [place], [address] Urea nitrogen [Mass/Vol] 63 mg/dL High 4-19 [facility] Comment on above: Performed By: #### L 100.0100, L500.2500 #### [facility] [address] [place], [address] C. difficile DNA ALICE+probe Q l (Unsp spec)Ordered By: Chirag Lucero on 11-01-2024 Clostridioides difficile (PCR) [facility] CBC W/Diff, Automatedon 04-0 Absolute Lymph 1.12 X10 3/uL Normal 0.83-4.51 [facility] Comment on above: Performed By: #### L 100.0100, L500.2500 #### [facility] [address] [place], [address] Absolute Neut 7.8 X10 3/uL High 2.0-7.7 [facility] Comment on above: Performed By: #### L 100.0100, L500.2500 #### [facility] [address] [place], [address] Basophils/100 WBC (Bld) 0.3 % Normal 0-1 [facility] Comment on above: Performed By: #### L 100.0100, L500.2500 #### [facility] [address] [place], [address] Eosinophils/100 WBC (Bld) 1.1 % Normal 0-5 [facility] Comment on above: Performed By: #### L 100.0100, L500.2500 #### [facility] [address] [place], [address] Erythrocyte distribution width (RBC) [Ratio] 13.5 % Normal 11.6-14.6 [facility] Comment on above: Performed By: #### L 100.0100, L500.2500 #### [facility] [address] [place], [address] Hematocrit (Bld) [Volume fraction] 37.4 % Low 40-54 [facility] Comment on above: Performed By: #### L 100.0100, L500.2500 #### [facility] [address] [place], [address] Hemoglobin (Bld) [Mass/Vol] 13.1 g/dL Normal 13.0-16.5 [facility] Comment on above: Performed By: #### L 100.0100, L500.2500 #### [facility] [address] [place], [address] IG% 1.000 High 0.0-0.9 [facility] Comment on above: Result Comment: IG% - Immature Granulocytes (promyelocytes, myelocytes and metamyelocytes) > 1% indicates that a LEFT SHIFT is Present. Performed By: #### L 100.0100, L500.2500 #### [facility] [address] [place], [address] Lymphocytes/100 WBC (Bld) 11.3 % Low 19-41 [facility] Comment on above: Performed By: #### L 100.0100, L500.2500 #### [facility] [address] [place], [address] MCH (RBC) [Entitic mass] 31.6 pg Normal 27.0-32.0 [facility] Comment on above: Performed By: #### L 100.0100, L500.2500 #### [facility] [address] [place], [address] MCHC (RBC) [Mass/Vol] 35.0 g/dL Normal 32-36 [facility] Comment on above: Performed By: #### L 100.0100, L500.2500 #### [facility] [address] [place], [address] MCV (RBC) [Entitic vol] 90.3 fL Normal 80-94 [facility] Comment on above: Performed By: #### L 100.0100, L500.2500 #### [facility] [address] [place], [address] Monocytes/100 WBC (Bld) 7.5 % Normal 0-10 [facility] Comment on above: Performed By: #### L 100.0100, L500.2500 #### [facility] [address] [place], [address] Neutrophils/100 WBC (Bld) 78.8 % High 47-70 [facility] Comment on above: Performed By: #### L 100.0100, L500.2500 #### [facility] [address] [place], [address] Nucleated RBC (Bld) [#/Vol] 0 10*3/uL Normal 0-5 [facility] Comment on above: Performed By: #### L 100.0100, L500.2500 #### [facility] [address] [place], [address] Platelet mean volume (Bld) [Entitic vol] 9.6 fL Normal 6.2-12.0 [facility] Comment on above: Performed By: #### L 100.0100, L500.2500 #### [facility] [address] [place], [address] Platelets (Bld) [#/Vol] 188 10*3/uL Normal 150-450 [facility] Comment on above: Performed By: #### L 100.0100, L500.2500 #### [facility] [address] [place], [address] RBC (Bld) [#/Vol] 4.14 10*6/uL Low 4.6-6.2 [facility] Comment on above: Performed By: #### L 100.0100, L500.2500 #### [facility] [address] [place], [address] RDW SD 45.1 fl High 35.1-43.9 [facility] Comment on above: Performed By: #### L 100.0100, L500.2500 #### [facility] [address] [place], [address] WBC (Bld) [#/Vol] 9.9 10*3/uL Normal 4.4-11.0 [facility] Comment on above: Performed By: #### L 100.0100, L500.2500 #### [facility] [address] [place], [address] CDIFF (PCR)on 11-01-2024 CDIFF Is the patient recei ving laxatives? N New/unexplained onset of 3 or more stools in past 24 hrs? Y Pending [phone] NAP1-B1 Presumptive Negative *for epidemiolologic???use C. Diff PCR Negative- No toxigenic C. Diff Detected Normal [facility] Comment on above: Performed By: #### M 100.6777 #### [facility] [address] [place], [address] Clostridium difficile detect ion by polymerase chain reactionOrdered By: Chirag Lucero on 11-01-2024 C. difficile DNA ALICE+probe Ql (Unsp spec) [facility] Consultation - Nephrologyon 11-01-2024 Consultation - Nephrology [facility] Medical Records Department [address] [place] [address] Consultation - Nephrology 11/01/24 1205 MR#: [id number] Acct: [id number] Name: MARLO ADAMSON Rep #: [id number] : 1960 64 From: Maranda GARCIAC PCP: Dr. Marlo Pollard, DO Status:ADM IN Location: [place] [address]-1 Assessment Plan Assessment/Plan (1) ESRD (end stage renal disease): PLAN: Plan Patient has history of ESRD secondary to polycystic kidney disease and is on home hemodialysis 4 days weekly via [facility]. Patient's last hemodialysis session was on Friday however this was partial session due to lines clotting during treatment. Patient will undergo hemodialysis today. Discussed fluid removal with patient, patient feels shortness of breath is related to pneumonia and feels he does not have any extra fluid on therefore asking no fluid removal with dialysis today. On exam patient does appear to be near euvolemic, he is now on room air. Likely EDW will be lowered as patient has lost body weight. Blood pressure is acceptable. Hemoglobin acceptable, at goal and does not need JACKSON with dialysis today. Patient is on IV antibiotics, ceftriaxone and receiving breathing treatments. Further orders forthcoming as hospitalization evolves. Assessment and plan reviewed with Dr. Shirley. HPI Consult Data Date of Consult: 11/01/24 HPI Narrative HPI Narrative: MARLO ADAMSON, is a 64 M who presented to the emergency room early yesterday morning with complaints of shortness of breath, cough and congestion. Admitted for pneumonia. Patient was admitted for acute hypoxic respiratory failure secondary to pneumonia. Nephrology consulted as patient has history of ESRD on home hemodialysis. Patient was seen in dialysis this morning, reports feeling better. His oxygenation improved and he is currently on room air. Patient denies any nausea or vomiting, he does state appetite was poor and he has lost weight. [facility] Medical History (Updated 11/01/24 @ 12:07 by Maranda Bustamante, NILAM-C) Tobacco use ESRD on hemodialysis ( 10/31/24) Wears dentures Marijuana use Polycystic renal disease DVT (deep venous thrombosis) High cholesterol History of echocardiogram Cardiology follow-up encounter Hypertension Hemorrhoids, internal GERD (gastroesophageal reflux disease) Myocardial infarction HTN (hypertension) Osteoarthritis Anxiety and depression CAD (coronary artery disease) Home Medications ???Medication ???Instructions ???Recorded ???Last Taken ???Type aspirin 81 mg tablet,delayed 81 mg PO DAILY 05/29/21 Unknown Hi story release cholecalciferol (vitamin D3) 125 125 mcg PO DAILY 05/29/21 Unknown History mcg (5,000 unit) capsule metoprolol tartrate 25 mg tablet 25 mg PO BID 05/29/21 Unknown Hist ory ondansetron 4 mg disintegrating 4 mg PO BID PRN Nausea 05/29/21 Un known History tablet pravastatin 40 mg tablet 40 mg PO QHS 05/29/21 Unknown Hist ory Hydrocortisone 2.5%/lidocaine 5% #30 ea 10/13/24 Unknown Rx suppository (cmpd) (hydrocortisone 2.5%/lidocaine 5% suppository (compound)) hydrocortisone 2.5 % topical cream 1 applic IA QD-BID PRN hemorrhoi ds 10/13/24 Unknown Rx with perineal applicator #30 grams (Proctozone-HC) oxycodone 10 mg tablet 10 mg PO TID PRN pain 10/13/24 Unk nown History vitamin B complex-vitamin C-folic 1 tab PO QDAY 10/13/24 Unknown Hi story acid 0.8 mg tablet (Renal-Svetlana) peg 3350-electrolytes 236 4,000 ml PO ONCE #4,000 mL 5 Unknown Rx gram-22.74 gram-6.74 gram-5.86 gram solution calcitriol 0.25 mcg capsule 0.25 mcg PO DAILY 10/31/24 Unknown History doxycycline monohydrate 100 mg 100 mg PO BID 10/31/24 Unknown His tory tablet lidocaine-prilocaine 2.5 %-2.5 % topical DAILY 10/31/24 Unknown His tory topical cream Allergy/AdvReac Type Severity Reaction Status Date / Time atorvastatin (From Lipitor) AdvReac MUSCLE ACHE Verified 10/13/24 14:15 Family History (Updated 10/31/24 @ 04:[address] Elidia Cunningham MD) Father Cancer abdominal tumor--unsure type Brother Heart disease Sister Brain mass Mother Brain aneurysm Surgical History History of arteriovenostomy for renal dialysis ( 05/2021) Hx of left knee surgery History of esophagogastroduodenoscopy (EGD) Hx of cystoscopy History of cardiac catheterization History of coronary artery bypass graft History of heart artery stent Social History (Updated 10/31/24 @ 04:[address] Elidia Cunningham MD) household members: none Smoking Status: Current every day smoker tobacco type: cigarettes Smoking packs per day: 1 Smoking cigarettes per day: 20.0 quit status: considering quitting alcohol intake: former substance use type: does not use ROS ROS Narrative As in HPI Physica (more content not included)... Normal [facility] ENTERIC PATHOGEN PANEL STOOL on 11-01-2024 EP PANEL Normal Reference Ran ge = Not Detected Nucleic acid amplification test method Not detected for Campylobacter group, Salmonella species, Shigella species, Vibrio Group, Yersinia enterocolitica, EHEC (Shiga Toxin 1, Shiga Toxin 2), Norovirus Gl/Gll, and Rotavirus A. Other common stool pathogens are not detected on this panel include: Aeromonas/Plesiomonas or parasites. Order testing for these organisms separately if suspected. This is an amplified DNA test which makes it both specific and sensitive. CAMPYLOBACTER Not Detected Norovirus Not Detected Rotavirus Not Detected Salmonella Not Detected Shiga Toxin Not Detected Shigella sp. Not Detected VIBRIO Not Detected Yersinia Not Detected Normal [facility] Comment on above: Performed By: #### M 100.637, M100.7900, M100.0605 #### [facility] [address] [place], [address] Lactoferrin IA Ql (Stl)Order ed By: Chirag Lucero on 11-01-2024 Stool Lactoferrin [facility] Lower GI hemoglobin IA Ql (S tl)Ordered By: Chirag Lucero on 11-01-2024 Stool Occult Blood (PAULIE) [facility] Stool Lactoferrin/WBCon 04-0 WBCST Normal Reference Ran ge = Negative Fecal WBC Lactoferrin A Positive: Fecal WBC Lactoferrin present A Normal [facility] Comment on above: Performed By: #### M 100.637, M100.7900, M100.0605 #### [facility] [address] [place], [address] Stool Occult Blood iFOBon STOB Negative Normal [facility] Comment on above: Performed By: #### M 100.637, M100.7900, M100.0605 #### [facility] [address] [place], [address] Stool enteric pathogen panel by probe and target amplification methodOrdered By: Chirag Lucero on 11-01-2024 Enteric Bacteriology [facility] Stool gastrointestinal hemog lobin detection by immunologic methodOrdered By: Chirag Lucero on 11-01-2024 Lower GI hemoglobin IA Ql (Stl) [facility] Stool lactoferrin detection by immunoassayOrdered By: Chirag Lucero on 11-01-2024 Lactoferrin IA Ql (Stl) [facility] Absolute neutrophil countOrd ered By: Jimy Jarquin on 10-31-2024 Neutrophils (Bld) [#/Vol] 14.1 10*3/uL High 2.0-7.7 [facility] Anion gap in Serum or Plasma Ordered By: Jimy Jarquin on 10-31-2024 Anion gap [Moles/Vol] 18 mmol/L High 5-15 [facility] BUN/creatinine ratioOrdered By: Jimy Jarquin on 10-31-2024 Urea nitrogen/Creatinine [Mass ratio] 7.6 mg/mg Low 10-20 [facility] Basic Metabolic Profile (BMP )on 10-31-2024 BUN/CRE 7.6 RATIO Low 10-20 [facility] Comment on above: Performed By: #### M 300.4600, M300.4500 #### [facility] [address] [place], [address] Calcium [Mass/Vol] 9.1 mg/dL Normal 7.6-11.0 [facility] Comment on above: Performed By: #### M 300.4600, M300.4500 #### [facility] [address] [place], [address] Chloride [Moles/Vol] 89 mmol/L Low 98-108 [facility] Comment on above: Performed By: #### M 300.4600, M300.4500 #### [facility] [address] [place], [address] CO2 [Moles/Vol] 25.2 mmol/L Normal 21.0-32.0 [facility] Comment on above: Performed By: #### M 300.4600, M300.4500 #### [facility] [address] [place], [address] Creatinine [Mass/Vol] 6.33 mg/dL High 0.70-1.20 [facility] Comment on above: Performed By: #### M 300.4600, M300.4500 #### [facility] [address] [place], [address] ECRCL 11.97 ml/min Low 50-250 [facility] Comment on above: Performed By: #### M 300.4600, M300.4500 #### [facility] [address] [place], [address] GAP 18 High 5-15 [facility] Comment on above: Performed By: #### M 300.4600, M300.4500 #### [facility] [address] [place], [address] GFR/1.73 sq M.predicted among non-blacks MDRD (S/P/Bld) [Vol rate/Area] 9 mL/min/{1.73_m2} Low >60 [facility] Comment on above: Result Comment: mL/m in/1.73m2 CKD-EPI Creatinine Equation (2020) Performed By: #### M 300.4600, M300.4500 #### [facility] [address] [place], [address] Glucose [Mass/Vol] 132 mg/dL High 70-99 [facility] Comment on above: Performed By: #### M 300.4600, M300.4500 #### [facility] [address] [place], [address] Potassium [Moles/Vol] 3.3 mmol/L Normal 3.3-5.1 [facility] Comment on above: Performed By: #### M 300.4600, M300.4500 #### [facility] [address] [place], [address] Sodium [Moles/Vol] 132 mmol/L Low 133-145 [facility] Comment on above: Performed By: #### M 300.4600, M300.4500 #### [facility] [address] [place], [address] Urea nitrogen [Mass/Vol] 48 mg/dL High 4-19 [facility] Comment on above: Performed By: #### M 300.4600, M300.4500 #### [facility] [address] [place], [address] Basophil percentageOrdered B y: Jimy Jarquin on 10-31-2024 Basophils/100 WBC (Bld) 0.2 % 0-1 [facility] Bilirubin, totalOrdered By: Elidia Cunningham on 10-31-2024 Bilirubin [Mass/Vol] 0.83 mg/dL 0.00-1.30 [facility] CBC W/Diff, Automatedon Absolute Lymph 0.93 X10 3/uL Normal 0.83-4.51 [facility] Comment on above: Performed By: #### M 8200.1000 #### [facility] [address] [place], [address] Absolute Neut 11.7 X10 3/uL High 2.0-7.7 [facility] Comment on above: Performed By: #### M 8200.1000 #### [facility] [address] [place], [address] Basophils/100 WBC (Bld) 0.1 % Normal 0-1 [facility] Comment on above: Performed By: #### M 8200.1000 #### [facility] [address] [place], [address] Eosinophils/100 WBC (Bld) 0.1 % Normal 0-5 [facility] Comment on above: Performed By: #### M 8200.1000 #### [facility] [address] [place], [address] Erythrocyte distribution width (RBC) [Ratio] 13.4 % Normal 11.6-14.6 [facility] Comment on above: Performed By: #### M 8200.1000 #### [facility] [address] [place], [address] Hematocrit (Bld) [Volume fraction] 39.0 % Low 40-54 [facility] Comment on above: Performed By: #### M 8200.1000 #### [facility] [address] [place], [address] Hemoglobin (Bld) [Mass/Vol] 13.5 g/dL Normal 13.0-16.5 [facility] Comment on above: Performed By: #### M 8200.1000 #### [facility] [address] [place], [address] IG% 1.200 High 0.0-0.9 [facility] Comment on above: Result Comment: IG% - Immature Granulocytes (promyelocytes, myelocytes and metamyelocytes) > 1% indicates that a LEFT SHIFT is Present. Performed By: #### M 8200.1000 #### [facility] [address] [place], [address] Lymphocytes/100 WBC (Bld) 6.7 % Low 19-41 [facility] Comment on above: Performed By: #### M 8200.1000 #### [facility] [address] [place], [address] MCH (RBC) [Entitic mass] 31.1 pg Normal 27.0-32.0 [facility] Comment on above: Performed By: #### M 8200.1000 #### [facility] [address] [place], [address] MCHC (RBC) [Mass/Vol] 34.6 g/dL Normal 32-36 [facility] Comment on above: Performed By: #### M 8200.1000 #### [facility] [address] [place], [address] MCV (RBC) [Entitic vol] 89.9 fL Normal 80-94 [facility] Comment on above: Performed By: #### M 8200.1000 #### [facility] [address] [place], [address] Monocytes/100 WBC (Bld) 7.3 % Normal 0-10 [facility] Comment on above: Performed By: #### M 8200.1000 #### [facility] [address] [place], [address] Neutrophils/100 WBC (Bld) 84.6 % High 47-70 [facility] Comment on above: Performed By: #### M 8200.1000 #### [facility] [address] [place], [address] Nucleated RBC (Bld) [#/Vol] 0 10*3/uL Normal 0-5 [facility] Comment on above: Performed By: #### M 8200.1000 #### [facility] [address] [place], [address] Platelet mean volume (Bld) [Entitic vol] 9.6 fL Normal 6.2-12.0 [facility] Comment on above: Performed By: #### M 8200.1000 #### [facility] [address] [place], [address] Platelets (Bld) [#/Vol] 186 10*3/uL Normal 150-450 [facility] Comment on above: Performed By: #### M 8200.1000 #### [facility] [address] [place], [address] RBC (Bld) [#/Vol] 4.34 10*6/uL Low 4.6-6.2 [facility] Comment on above: Performed By: #### M 8200.1000 #### [facility] [address] [place], [address] RDW SD 44.4 fl High 35.1-43.9 [facility] Comment on above: Performed By: #### M 8200.1000 #### [facility] [address] [place], [address] WBC (Bld) [#/Vol] 13.8 10*3/uL High 4.4-11.0 [facility] Comment on above: Performed By: #### M 8200.1000 #### [facility] [address] [place], [address] Absolute Lymph 0.86 X10 3/uL Normal 0.83-4.51 [facility] Comment on above: Performed By: #### M 300.4600, M300.4500 #### [facility] [address] [place], [address] Absolute Neut 14.1 X10 3/uL High 2.0-7.7 [facility] Comment on above: Performed By: #### M 300.4600, M300.4500 #### [facility] [address] [place], [address] Basophils/100 WBC (Bld) 0.2 % Normal 0-1 [facility] Comment on above: Performed By: #### M 300.4600, M300.4500 #### [facility] [address] [place], [address] Eosinophils/100 WBC (Bld) 0.1 % Normal 0-5 [facility] Comment on above: Performed By: #### M 300.4600, M300.4500 #### [facility] [address] [place], [address] Erythrocyte distribution width (RBC) [Ratio] 13.5 % Normal 11.6-14.6 [facility] Comment on above: Performed By: #### M 300.4600, M300.4500 #### [facility] [address] [place], [address] Hematocrit (Bld) [Volume fraction] 40.9 % Normal 40-54 [facility] Comment on above: Performed By: #### M 300.4600, M300.4500 #### [facility] [address] [place], [address] Hemoglobin (Bld) [Mass/Vol] 14.4 g/dL Normal 13.0-16.5 [facility] Comment on above: Performed By: #### M 300.4600, M300.4500 #### [facility] [address] [place], [address] IG% 1.500 High 0.0-0.9 [facility] Comment on above: Result Comment: IG% - Immature Granulocytes (promyelocytes, myelocytes and metamyelocytes) > 1% indicates that a LEFT SHIFT is Present. Performed By: #### M 300.4600, M300.4500 #### [facility] [address] [place], [address] Lymphocytes/100 WBC (Bld) 5.3 % Low 19-41 [facility] Comment on above: Performed By: #### M 300.4600, M300.4500 #### [facility] [address] [place], [address] MCH (RBC) [Entitic mass] 31.5 pg Normal 27.0-32.0 [facility] Comment on above: Performed By: #### M 300.4600, M300.4500 #### [facility] [address] [place], [address] MCHC (RBC) [Mass/Vol] 35.2 g/dL Normal 32-36 [facility] Comment on above: Performed By: #### M 300.4600, M300.4500 #### [facility] [address] [place], [address] MCV (RBC) [Entitic vol] 89.5 fL Normal 80-94 [facility] Comment on above: Performed By: #### M 300.4600, M300.4500 #### [facility] [address] [place], [address] Monocytes/100 WBC (Bld) 7.1 % Normal 0-10 [facility] Comment on above: Performed By: #### M 300.4600, M300.4500 #### [facility] [address] [place], [address] Neutrophils/100 WBC (Bld) 85.8 % High 47-70 [facility] Comment on above: Performed By: #### M 300.4600, M300.4500 #### [facility] [address] [place], [address] Nucleated RBC (Bld) [#/Vol] 0 10*3/uL Normal 0-5 [facility] Comment on above: Performed By: #### M 300.4600, M300.4500 #### [facility] [address] [place], [address] Platelet mean volume (Bld) [Entitic vol] 9.7 fL Normal 6.2-12.0 [facility] Comment on above: Performed By: #### M 300.4600, M300.4500 #### [facility] [address] [place], [address] Platelets (Bld) [#/Vol] 197 10*3/uL Normal 150-450 [facility] Comment on above: Performed By: #### M 300.4600, M300.4500 #### [facility] [address] [place], [address] RBC (Bld) [#/Vol] 4.57 10*6/uL Low 4.6-6.2 [facility] Comment on above: Performed By: #### M 300.4600, M300.4500 #### [facility] [address] [place], [address] RDW SD 44.1 fl High 35.1-43.9 [facility] Comment on above: Performed By: #### M 300.4600, M300.4500 #### [facility] [address] [place], [address] WBC (Bld) [#/Vol] 16.4 10*3/uL High 4.4-11.0 [facility] Comment on above: Performed By: #### M 300.4600, M300.4500 #### [facility] [address] [place], [address] Carbon dioxide, total [Moles /volume] in Central venous bloodOrdered By: Jimy Jarquin on 10-31-2024 CO2 [Moles/Vol] 25.2 mmol/L 21.0-32.0 [facility] Chest PA and Lateralon 10-31 Chest PA and Lateral [facility] [address] [place] [address] Chest PA and Lateral MR#: [id number] Acct: [id number] Name: MARLO ADAMSON Rep #: [id number] : 1960 M 64 From: Beau Blackman i, DO PCP: Dr. Marlo Pollard DO Status: PRE ER Study: Chest PA and Lateral Date of Exam: 10/31/24 Exam# [id number] Ordering Dr: Jimy Jarquin MD PROCEDURE: PA and lateral chest radiographs, four views 10/31/2024 REASON FOR EXAM: Cough and shortness of breath TECHNIQUE: Frontal and lateral views of the chest. COMPARISON: None available FINDINGS: The bones are osteopenic with degenerative changes in the spine. Lungs are mildly hyperinflated. Sternotomy wires are present. No pneumothorax or pulmonary vascular congestion. Left lung is grossly clear. There is some patchy opacity at the right lung base, concerning for right middle lobe pneumonia. Hemidiaphragm. RAD/Chest PA and Lateral IMPRESSION: Findings concerning for right middle lobe pneumonia. Recommend continued radiologic follow-up to document resolution. Prior median sternotomy. Mild pulmonary hyperinflation. No sizable pleural effusion. Mild elevation right Reading Location: [facility] CC: Dr. Jimy Jarquin MD; Dr. Marlo Pollard DO Machine Baster: Signed Normal [facility] Chloride assayOrdered By: Odalis Jarquin on 10-31-2024 Chloride [Moles/Vol] 89 mmol/L Low 98-108 [facility] Comprehensive Metabolic Prof ilon 10-31-2024 Albumin [Mass/Vol] 3.2 g/dL Low 3.4-4.8 [facility] Comment on above: Performed By: #### M 8200.1000 #### [facility] [address] [place], [address] Albumin/Globulin [Mass ratio] 1.0 {ratio} Normal 0.9-2.4 [facility] Comment on above: Performed By: #### M 8200.1000 #### [facility] [address] [place], [address] ALK PHOS 67 U/L Normal 40-129 [facility] Comment on above: Performed By: #### M 8200.1000 #### [facility] [address] [place], [address] ALT [Catalytic activity/Vol] 22 U/L Normal <=46 [facility] Comment on above: Performed By: #### M 8200.1000 #### [facility] [address] [place], [address] AST [Catalytic activity/Vol] 24 U/L Normal <=37 [facility] Comment on above: Performed By: #### M 8200.1000 #### [facility] [address] [place], [address] Bilirubin [Mass/Vol] 0.83 mg/dL Normal 0.00-1.30 [facility] Comment on above: Performed By: #### M 8200.1000 #### [facility] [address] [place], [address] BUN/CRE 7.9 RATIO Low 10-20 [facility] Comment on above: Performed By: #### M 8200.1000 #### [facility] [address] [place], [address] Calcium [Mass/Vol] 9.0 mg/dL Normal 7.6-11.0 [facility] Comment on above: Performed By: #### M 8200.1000 #### [facility] [address] [place], [address] Chloride [Moles/Vol] 90 mmol/L Low 98-108 [facility] Comment on above: Performed By: #### M 8200.1000 #### [facility] [address] [place], [address] CO2 [Moles/Vol] 23.9 mmol/L Normal 21.0-32.0 [facility] Comment on above: Performed By: #### M 8200.1000 #### [facility] [address] [place], [address] Creatinine [Mass/Vol] 6.59 mg/dL High 0.70-1.20 [facility] Comment on above: Performed By: #### M 8200.1000 #### [facility] [address] [place], [address] ECRCL 11.26 ml/min Low 50-250 [facility] Comment on above: Performed By: #### M 8200.1000 #### [facility] [address] [place], [address] GAP 18 High 5-15 [facility] Comment on above: Performed By: #### M 8200.1000 #### [facility] [address] [place], [address] GFR/1.73 sq M.predicted among non-blacks MDRD (S/P/Bld) [Vol rate/Area] 9 mL/min/{1.73_m2} Low >60 [facility] Comment on above: Result Comment: mL/m in/1.73m2 CKD-EPI Creatinine Equation (2020) Performed By: #### M 8200.1000 #### [facility] [address] [place], [address] Globulin (S) [Mass/Vol] 3.3 g/dL Normal 2.2-4.2 [facility] Comment on above: Performed By: #### M 8200.1000 #### [facility] [address] [place], [address] Glucose [Mass/Vol] 113 mg/dL High 70-99 [facility] Comment on above: Performed By: #### M 8200.1000 #### [facility] [address] [place], [address] Potassium [Moles/Vol] 3.2 mmol/L Low 3.3-5.1 [facility] Comment on above: Performed By: #### M 8200.1000 #### [facility] [address] [place], [address] Sodium [Moles/Vol] 132 mmol/L Low 133-145 [facility] Comment on above: Performed By: #### M 8200.1000 #### [facility] [address] [place], [address] T PROT 6.5 g/dL Normal 5.9-8.4 [facility] Comment on above: Performed By: #### M 8200.1000 #### [facility] [address] [place], [address] Urea nitrogen [Mass/Vol] 52 mg/dL High 4-19 [facility] Comment on above: Performed By: #### M 8200.1000 #### [facility] [address] [place], [place], [address] Emergency Department Summary on 10-31-2024 Emergency Department Summary [facility] Medical Records Department [address] [place] [address] Emergency Department Summary 10/31/24 MR#: [id number] Acct: [id number] Name: MARLO ADAMSON Rep #: [id number] : 1960 64 From: Jimy Jarquin MD PCP: Dr. Marlo Pollard, DO Status:REG ER Location: ED HPI History of Present Illness Chief Complaint: General Illness Informant: patient Narrative Narrative: 64-year-old male states he has had productive cough congestion and some dyspnea last 5 days. His doctor started him on doxycycline. He has been taking that. States he started feel a bit better but in the last couple days he has been doing his home hemodialysis, and he has had twice where the machine shuts down when blood gets into the top of my dialyzer and then he cannot return all of the blood in the lines to his body and he loses it. He is concerned that he is feeling more tired now and is asking for his blood counts checked. He presents here at 2 AM for this and has no other complaints. [facility] Medical History Wears dentures Alcohol use Marijuana use History of renal disease Polycystic renal disease DVT (deep venous thrombosis) Easy bruising High cholesterol Back pain Syncope Heartburn Smoker Leg cramps History of pain when walking History of edema History of echocardiogram Cardiology follow-up encounter Hypertension Hemorrhoids, internal GERD (gastroesophageal reflux disease) Myocardial infarction HTN (hypertension) Osteoarthritis Anxiety and depression CAD (coronary artery disease) Chronic progressive renal failure, stage 4 (severe) Acute renal failure Home Medications ???Medication ???Instructions ???Recorded ???Last Taken ???Type aspirin 81 mg tablet,delayed 81 mg PO DAILY 05/29/21 Unknown Hi story release cholecalciferol (vitamin D3) 125 125 mcg PO DAILY 05/29/21 Unknown History mcg (5,000 unit) capsule metoprolol tartrate 25 mg tablet 25 mg PO BID 05/29/21 Unknown Hist ory ondansetron 4 mg disintegrating 4 mg PO BID PRN Nausea 05/29/21 Un known History tablet pravastatin 40 mg tablet 40 mg PO QHS 05/29/21 Unknown Hist ory Hydrocortisone 2.5%/lidocaine 5% #30 ea 10/13/24 Unknown Rx suppository (cmpd) (hydrocortisone 2.5%/lidocaine 5% suppository (compound)) amoxicillin 500 mg-potassium 1 tab PO QDAY #5 tabs 10/13/24 Unk nown Rx clavulanate 125 mg tablet (Augmentin) hydrocortisone 2.5 % topical cream 1 applic IA QD-BID PRN hemorrhoi ds 10/13/24 Unknown Rx with perineal applicator #30 grams (Proctozone-HC) oxycodone 10 mg tablet 10 mg PO TID PRN 10/13/24 Unknown History vitamin B complex-vitamin C-folic 1 tab PO QDAY 10/13/24 Unknown Hi story acid 0.8 mg tablet (Renal-Svetlana) peg 3350-electrolytes 236 4,000 ml PO ONCE #4,000 mL 5 Unknown Rx gram-22.74 gram-6.74 gram-5.86 gram solution Allergy/AdvReac Type Severity Reaction Status Date / Time atorvastatin (From Lipitor) AdvReac MUSCLE ACHE Verified 10/13/24 14:15 Family History (Updated 10/13/24 @ 14:13 by Nabila Parra) Father Cancer abdominal tumor--unsure type Brother Heart disease Sister Brain mass Surgical History History of arteriovenostomy for renal dialysis ( 05/2021) Hx of left knee surgery History of esophagogastroduodenoscopy (EGD) Hx of cystoscopy History of cardiac catheterization History of coronary artery bypass graft History of heart artery stent Social History (Updated 10/13/24 @ 14:14 by Nabila Parra) Smoking Status: Current every day smoker tobacco type: cigarettes quit status: quit date established ROS ROS ED Constitutional Constitutional ED: Reports fatigue and malaise; Denies chills or fever(s) Eyes Eyes: Denies change in vision or diplopia ENT ENT ED: Denies rhinorrhea or sore throat Cardiovascular Cardiovascular: Denies chest pain, orthopnea or palpitations Respiratory/Chest Respiratory/Chest: Reports cough and dyspnea on exertion; Denies orthopnea Gastrointestinal Gastrointestinal: Reports other Details: Chronic nausea ; Denies abdominal pain, diarrhea or vomiting Musculoskeletal Musculoskeletal: Denies back pain or neck pain Integumentary Denies abscess or rash Neurologic Neurologic: Denies headache(s), paresthesias or weakness Psychiatric Psychiatric: Denies suicidal thoughts EXAM Physical Exam Const Vital Signs: 10/31/24 01:58 10/31/24 02:06 Temperature 98.9 F Temperature Source Oral Pulse Rate 88 Respiratory Rate 17 Respiratory Effort Short of Breath Respiratory Pattern Normal Blood Pressure 144/86 H Blood Pressure Mean 105 Pulse Ox 90 Oxygen Delivery Method Room Air Positi (more content not included)... Normal [facility] Eosinophil percentageOrdered By: Jimyjourdan Jarquin on 10-31-2024 Eosinophils/100 WBC (Bld) 0.1 % 0-5 [facility] Erythrocyte distribution wid th (RBC) [Ratio]Ordered By: Jimy Jarquin on 10-31-2024 Erythrocyte distribution width (RBC) [Entitic vol] 44.1 fL High 35.1-43.9 [facility] Erythrocyte distribution wid th ratioOrdered By: Jimy Jarquin on 10-31-2024 Erythrocyte distribution width (RBC) [Ratio] 13.5 % 11.6-14.6 [facility] Estimation of creatinine nicolas aranceOrdered By: Jimy Jarquin on 10-31-2024 Estimated Creatinine Clearance Calc 11.97 ml/min Low 50-250 [facility] GFR/1.73 sq M.predicted joann g non-blacks MDRD (S/P/Bld) [Vol rate/Area]Ordered By: Jimy Jarquin on 10-31-2024 Estimated GFR (MDRD) Non-Af Amer 9 Low >60 [facility] Comment on above: mL/min/1.73m2 CKD-EP I Creatinine Equation (2020) Gram Stainon 10-31-2024 GS List Antibiotics [place] 48 Hours? zosyn, doxycycline Acceptable Specimen? Yes (<25 Epithelial cells per/lpf) Gram Stain 1+ Gram positive cocci 1+ White Blood Cells 1+ Epithelial cells 1+ Gram positive rods Normal [facility] Comment on above: Performed By: #### M 300.4600, M300.4500 #### [facility] [address] [place], [place], [address] Gram stainOrdered By: Elidia Cunningham on 10-31-2024 Microscopic observation Gram stain Nom (Unsp spec) [facility] H AND P Exam - [facility] 10-31-2024 H&P Exam - Hospitalist [facility] Medical Records Department [address] [place] [address] H P Exam - Hospitalist 10/31/24 0347 MR#: [id number] Acct: [id number] Name: MARLO ADAMSON Rodrigo Rep #: [id number] : 1960 64 From: Elidia Cunningham MD PCP: Dr. Marlo Pollard, DO Status:ADM IN Location: [facility] [place] FC062-4 HPI - General General Date of Admission: 10/31/24 Date of Service: 10/31/24 Chief Complaint: Cough, congestion, dyspnea, recent outpatient abx. HPI Narrative The patient is a 64-year-old male with past medical history M w/ PMHx: PCKD w/ ESRD (T-F), CAD s/p PCI, HTN, HLD, GERD, Tobacco use, Hx VTE (DVT) who presents to the [facility] ED on 10/31/24 with congestion, fatigue, malaise, productive cough with worsening dyspnea over the last 5 days with recent outpatient PCP evaluation with initiation on doxycycline which has been taking with some mild improvement over the last couple days however he notes he has been attempting his home dialysis and unfortunately twice now the machine is shut down with his blood in the dialyzer unfortunately not returning the entire amount and has been concerned for worsened anemia prompting eventual ED evaluation. Workup in the ED included T98.9, heart rate 88, BP 144/86, respiratory rate 17, 90% room air-->85% dropped on room air, CBC with WBC 16.4, hemoglobin 14.4, platelet 187 with left shift, BMP with sodium 132, chloride 89, BUN/creatinine 48/6.33, glucose 132, chest x-ray with findings concerning for right middle lobe pneumonia, evidence of prior median sternotomy, mild pulmonary hyperinflation. In the ED patient ministered IV Zosyn therapy. [facility] Medical History (Updated 10/31/24 @ 04:[address] Elidia Cunningham MD) Tobacco use ESRD on hemodialysis ( 10/31/24) Wears dentures Marijuana use Polycystic renal disease DVT (deep venous thrombosis) High cholesterol History of echocardiogram Cardiology follow-up encounter Hypertension Hemorrhoids, internal GERD (gastroesophageal reflux disease) Myocardial infarction HTN (hypertension) Osteoarthritis Anxiety and depression CAD (coronary artery disease) Home Medications ???Medication ???Instructions ???Recorded ???Last Taken ???Type aspirin 81 mg tablet,delayed 81 mg PO DAILY 05/29/21 Unknown Hi story release cholecalciferol (vitamin D3) 125 125 mcg PO DAILY 05/29/21 Unknown History mcg (5,000 unit) capsule metoprolol tartrate 25 mg tablet 25 mg PO BID 05/29/21 Unknown Hist ory ondansetron 4 mg disintegrating 4 mg PO BID PRN Nausea 05/29/21 Un known History tablet pravastatin 40 mg tablet 40 mg PO QHS 05/29/21 Unknown Hist ory Hydrocortisone 2.5%/lidocaine 5% #30 ea 10/13/24 Unknown Rx suppository (cmpd) (hydrocortisone 2.5%/lidocaine 5% suppository (compound)) hydrocortisone 2.5 % topical cream 1 applic IA QD-BID PRN hemorrhoi ds 10/13/24 Unknown Rx with perineal applicator #30 grams (Proctozone-HC) oxycodone 10 mg tablet 10 mg PO TID PRN pain 10/13/24 Unk nown History vitamin B complex-vitamin C-folic 1 tab PO QDAY 10/13/24 Unknown Hi story acid 0.8 mg tablet (Renal-Svetlana) peg 3350-electrolytes 236 4,000 ml PO ONCE #4,000 mL 5 Unknown Rx gram-22.74 gram-6.74 gram-5.86 gram solution calcitriol 0.25 mcg capsule 0.25 mcg PO DAILY 10/31/24 Unknown History doxycycline monohydrate 100 mg 100 mg PO BID 10/31/24 Unknown His tory tablet lidocaine-prilocaine 2.5 %-2.5 % topical DAILY 10/31/24 Unknown His tory topical cream Allergy/AdvReac Type Severity Reaction Status Date / Time atorvastatin (From Lipitor) AdvReac MUSCLE ACHE Verified 10/13/24 14:15 Family History (Updated 10/31/24 @ 04:[address] Elidia Cunningham MD) Father Cancer abdominal tumor--unsure type Brother Heart disease Sister Brain mass Mother Brain aneurysm Surgical History History of arteriovenostomy for renal dialysis ( 05/2021) Hx of left knee surgery History of esophagogastroduodenoscopy (EGD) Hx of cystoscopy History of cardiac catheterization History of coronary artery bypass graft History of heart artery stent Social History (Updated 10/31/24 @ 04:[address] Elidia Cunningham MD) household members: none Smoking Status: Current every day smoker tobacco type: cigarettes Smoking packs per day: 1 Smoking cigarettes per day: 20.0 quit status: considering quitting alcohol intake: former substance use type: does not use ROS ROS Narrative Admission Review of Systems: CONSTITUTIONAL: No weight loss, fever, chills, + weakness or fatigue. HEENT: + Congestion, rhinorrhea. Eyes: No visual loss, blurred vision, double vision or yellow sclerae. Ears, Nose, Throat: No hearing loss, sneezing, sore throat. SKIN: No rash or itching, lesions, wounds. CARDIOVASCULAR (more content not included)... Normal [facility] Hematocrit Auto (Bld) [Volum e fraction]Ordered By: Jimy Jarquin on 10-31-2024 Hematocrit (Bld) [Volume fraction] 40.9 % 40-54 [facility] Hemoglobin measurementOrdere d By: Jimy Jarquin on 10-31-2024 Hemoglobin (Bld) [Mass/Vol] 14.4 g/dL 13.0-16.5 [facility] Immature granulocytes/100 WB C Auto (Bld)Ordered By: Jimy Jarquin on 10-31-2024 Immature granulocytes/100 WBC (Bld) 1.500 % High 0.0-0.9 [facility] Comment on above: IG% - Immature Granu locytes (promyelocytes, myelocytes and metamyelocytes) > 1% indicates that a LEFT SHIFT is Present. L. pneumophila Ag Ql (U)Orde red By: Elidia Cunningham on 10-31-2024 Legionella Antigen [facility] - Chemistry and C hemistry - challengeOrdered By: Elidia Cunningham on 10-31-2024 AST [Catalytic activity/Vol] 24 U/L <38 [facility] Legionella Antigen Urineon 0 10-31-2024 LEGU Legionella Antigen r esult interpretation: L pneumo Ag Ur Ql Negative Presumptive negative for Legionella pneumophila serogroup 1 antigen in urine, suggesting no recent or current infection. Legionella Ag, Urine Negative (See interpretation below) Normal [facility] Comment on above: Performed By: #### M 300.4600, M300.4500 #### [facility] [address] [place], [place], [id number] Lymphocytes Auto (Unsp spec) [#/Vol]Ordered By: Jimy Jarquin on 10-31-2024 Lymphocytes (Bld) [#/Vol] 0.86 10*3/uL 0.83-4.51 [facility] Lymphocytes/100 WBC Auto (Un sp spec)Ordered By: Jimy Jarquin on 10-31-2024 Lymphocytes/100 WBC (Bld) 5.3 % Low 19-41 [facility] M8200.1000on 10-31-2024 M8200.1000 Normal Reference Ran ge = Negative MRSA DNA Nose Ql ALICE+probe GeneXpert Instrument, PCR method MRSA DNA Nose Ql ALICE+probe RESULTS CALLED TO LESTER SOTO 10/31/24 0844 Yanna Ferrell. REPORT READ BACK BY . MRSA PCR A MRSA POSITIVE A Meth. resistant Staph. aureus mecA A mecA Resistance Marker Detected A Normal [facility] Comment on above: Performed By: #### M 8200.1000 #### [facility] [address] [place], [place], [id number] MCV (mean corpuscular volume ) determinationOrdered By: Jimy Jarquin on 10-31-2024 MCV (RBC) [Entitic vol] 89.5 fL 80-94 [facility] MRSA DNA ALICE+probe Ql (Nose) Ordered By: Elidia Cunningham on 10-31-2024 MRSA (PCR) Meth. resistant Stap h. aureus Abnormal [facility] Magnesiumon 10-31-2024 Magnesium [Mass/Vol] 1.8 mg/dL Normal 1.5-2.2 [facility] Comment on above: Order Comment: Comme nts: May add to ED labsComments: may add to ED labs Performed By: #### M 300.4600, M300.4500 #### [facility] [address] [place], [place], [id number] Magnesium (Unsp spec) [Mass/ Vol]Ordered By: Elidia Cunningham on 10-31-2024 Magnesium [Mass/Vol] 1.8 mg/dL 1.5-2.2 [facility] Magnesium measurement (mass/ volume)Ordered By: Elidia Cunningham on 10-31-2024 Magnesium (Unsp spec) [Mass/Vol] 1.8 mg/dL 1.5-2.2 [facility] Mean corpuscular hemoglobin (MCH) determinationOrdered By: Jimy Jarquin on 10-31-2024 MCH (RBC) [Entitic mass] 31.5 pg 27.0-32.0 [facility] Mean corpuscular hemoglobin concentration (MCHC) determinationOrdered By: Jimy Jarquin on 10-31-2024 MCHC (RBC) [Mass/Vol] 35.2 g/dL 32-36 [facility] Mean platelet volume determi nationOrdered By: Jimy Jarquin on 10-31-2024 Platelet mean volume (Bld) [Entitic vol] 9.7 fL 6.2-12.0 [facility] Microbial respiratory cultur eOrdered By: Eldiia Cunningham on 10-31-2024 Microorganism identified Cx Nom (Unsp spec) or Staphylococcus aureus isolated. [facility] Microorganism identified Cx Nom (Unsp spec)Ordered By: Elidia Cunningham on 10-31-2024 Respiratory Culture or Staphylococcus au reus isolated. [facility] Monocyte percentageOrdered B y: Jimy Jarquin on 10-31-2024 Monocytes/100 WBC (Bld) 7.1 % 0-10 [facility] Nasal methicillin resistant Staphylococcus aureus (MRSA) DNA detection by PCROrdered By: Elidia Cunningham on 10-31-2024 MRSA DNA ALICE+probe Ql (Nose) Meth. resistant Staph. aureus Abnormal [facility] Neutrophil percentageOrdered By: Jimy Jarquin on 10-31-2024 Neutrophils/100 WBC (Bld) 85.8 % High 47-70 [facility] Nucleated red blood cell per centageOrdered By: Jimy Jarquin on 10-31-2024 Nucleated RBC/100 WBC (Bld) [Ratio] 0 % 0-5 [facility] Phosphoruson 10-31-2024 Phosphate [Mass/Vol] 3.3 mg/dL Normal 2.7-4.5 [facility] Comment on above: Order Comment: Comme nts: May add to ED labsComments: may add to ED labs Performed By: #### M 300.4600, M300.4500 #### [facility] [address] [place], [address] Platelet countOrdered By: Odalis Jarquin on 10-31-2024 Platelets (Bld) [#/Vol] 197 10*3/uL 150-450 [facility] Potassium (Unsp spec) [Mass/ Vol]Ordered By: Jimy Jarquin on 10-31-2024 Potassium [Moles/Vol] 3.3 mmol/L 3.3-5.1 [facility] RBC Auto (Bld) [#/Vol]Ordere d By: Jimy Jarquin on 10-31-2024 RBC (Bld) [#/Vol] 4.57 10*6/uL Low 4.6-6.2 [facility] RESPIRATORY PANEL MOLECULARo n 10-31-2024 RP PANEL ADENOVIRUS Not Detected INFLUENZA A Not Detected INFLUENZA A (SUBTYPE H1) Not Detected INFLUENZA A (SUBTYPE H3) Not Detected INFLUENZA B Not Detected HUMAN METAPHNEUMO Not Detected PARAINFLUENZA 1 Not Detected PARAINFLUENZA 2 Not Detected PARAINFLUENZA 3 Not Detected PARAINFLUENZA 4 Not Detected RHINOVIRUS Not Detected RSV A Not Detected RSV B Not Detected Normal [facility] Comment on above: Performed By: #### M 100.336 #### [facility] [address] [place], [address] Respiratory pathogens DNA an d RNA panel ALICE+probe (Resp)Ordered By: Elidia Cunningham on 10-31-2024 Respiratory Panel (PCR) [facility] Respiratory pathogens detect ion panel by molecular detection methodOrdered By: Elidia Cunningham on 10-31-2024 Respiratory pathogens DNA and RNA panel ALICE+probe (Resp) [facility] Serum creatinine measurement (mass/volume)Ordered By: Jimy Jarquin on 10-31-2024 Creatinine [Mass/Vol] 6.33 mg/dL High 0.70-1.20 [facility] Serum globulin measurementOr dered By: Elidia Cunningham on 10-31-2024 Globulin (S) [Mass/Vol] 3.3 g/dL 2.2-4.2 [facility] Serum glucose measurement (m ass/volume)Ordered By: Jimy Jarquin on 10-31-2024 Glucose [Mass/Vol] 132 mg/dL High 70-99 [facility] Serum or plasma alanine velasquez otransferase (ALT) measurementOrdered By: Elidia Cunningham on 10-31-2024 ALT [Catalytic activity/Vol] 22 U/L <47 [facility] Serum or plasma albumin cuong urement (mass/volume)Ordered By: Elidia Cunningham on 10-31-2024 Albumin [Mass/Vol] 3.2 g/dL Low 3.4-4.8 [facility] Serum or plasma albumin/glob ulin mass ratioOrdered By: Elidia Cunningham on 10-31-2024 Albumin/Globulin [Mass ratio] 1.0 {ratio} 0.9-2.4 [facility] Serum or plasma alkaline padmini sphatase measurementOrdered By: Elidia Cunningham on 10-31-2024 ALP [Catalytic activity/Vol] 67 U/L 40-129 [facility] Serum or plasma calcium cuong urement (mass/volume)Ordered By: Jimy Jarquin on 10-31-2024 Calcium [Mass/Vol] 9.1 mg/dL 7.6-11.0 [facility] Serum or plasma urea nitroge n measurement (mass/volume)Ordered By: Jimy Jarquin on 10-31-2024 Urea nitrogen [Mass/Vol] 48 mg/dL High 4-19 [facility] Serum phosphorus measurement Ordered By: Elidia Cunningham on 10-31-2024 Phosphorus Level 3.3 mg/dL 2.7-4.5 [facility] Sodium levelOrdered By: Cristopher Jarquin on 10-31-2024 Sodium [Moles/Vol] 132 mmol/L Low 133-145 [facility] Strep pneumoniae Antig(UR,CS F)on 10-31-2024 STPAG URINE INTERPRETATION Strep pneumoniae Antig(UR,CSF) Strep pneumoniae Antig(UR,CSF) Negative Urine Presumptive negative for pneumococcal pneumonia, suggesting no current or recent pneumococcal infection. Infection due to S pneumoniae cannot be ruled out since the antigen present in the sample may be below the detection limit of the test. Strep pneumo Test Negative URINE (See interpretation below) Normal [facility] Comment on above: Performed By: #### M 300.4600, M300.4500 #### [facility] [address] [place] [address], [address] Streptococcus pneumoniae ant igen assayOrdered By: Elidia Cunningham on 10-31-2024 Streptococcus pneumoniae Antigen (M [facility] Total proteinOrdered By: Aut umn Octavio on 10-31-2024 Protein [Mass/Vol] 6.5 g/dL 5.9-8.4 [facility] Urine Legionella pneumophila antigen detectionOrdered By: Elidia Cunningham on 10-31-2024 L. pneumophila Ag Ql (U) [facility] White blood cell (WBC) count Ordered By: Jimy Jarquin on 10-31-2024 WBC (Bld) [#/Vol] 16.4 10*3/uL High 4.4-11.0 [facility] Surgery Visit Reporton 10-13 Surgery Visit Report [facility] [address] [place] [address] OFFICE VISIT Date of Service: 10/13/24 MR#: [id number] Acct: [id number] Name: MARLO ADAMSON Rep #: [id number] : 1960 Provider: Dr. Maria Ines molina MD Age/Sex: 64/M Location: [facility] Status: Signed Intake Vital Signs 06/08/21 11:37 10/13/24 14:14 Height 5 ft 10 in 5 ft 10 in Weight: 169 lb BMI 24.2 BP 156/79 H Blood Pressure Location Rt brachial Position Sitting Respiration 17 Pulse 66 Pulse Source Monitor Pulse Oximetry (%) 97 Oxygen Delivery Method room air Intake Visit Reasons: CYST ON BUTTOCK Chief Complaint: cyst on buttock/tailbone area Is patient in pain?: No Allergies atorvastatin (From Lipitor) Adverse Reaction (Verified 10/13/24 14:15) MUSCLE ACHE Medications ???Medication ???Instructions ???Recorded ???Confirmed ???Type aspirin 81 mg tablet,delayed 81 mg PO DAILY 05/29/21 10/13/24 H istory release cholecalciferol (vitamin D3) 125 125 mcg PO DAILY 05/29/21 10/13/24 History mcg (5,000 unit) capsule metoprolol tartrate 25 mg tablet 25 mg PO BID 05/29/21 10/13/24 His tory ondansetron 4 mg disintegrating 4 mg PO BID PRN Nausea 05/29/21 History tablet pravastatin 40 mg tablet 40 mg PO QHS 05/29/21 10/13/24 His tory Hydrocortisone 2.5%/lidocaine 5% #30 ea 10/13/24 10/13/24 Rx suppository (cmpd) (hydrocortisone 2.5%/lidocaine 5% suppository (compound)) amoxicillin 500 mg-potassium 1 tab PO QDAY #5 tabs 10/13/24 Rx clavulanate 125 mg tablet (Augmentin) hydrocortisone 2.5 % topical cream 1 applic IA QD-BID PRN hemorrhoi ds 10/13/24 10/13/24 Rx with perineal applicator #30 grams (Proctozone-HC) oxycodone 10 mg tablet 10 mg PO TID PRN 10/13/24 10/13/24 History vitamin B complex-vitamin C-folic 1 tab PO QDAY 10/13/24 10/13/24 H istory acid 0.8 mg tablet (Renal-Svetlana) [facility] Medical History Acute renal failure Alcohol use Anxiety and depression Back pain CAD (coronary artery disease) Cardiology follow-up encounter Chronic progressive renal failure, stage 4 (severe) DVT (deep venous thrombosis) Easy bruising GERD (gastroesophageal reflux disease) Heartburn Hemorrhoids, internal High cholesterol History of echocardiogram History of edema History of pain when walking History of renal disease HTN (hypertension) Hypertension Leg cramps Marijuana use Myocardial infarction Osteoarthritis Polycystic renal disease Smoker Syncope Wears dentures Surgical History History of arteriovenostomy for renal dialysis ( 05/2021) Hx of left knee surgery History of esophagogastroduodenoscopy (EGD) Hx of cystoscopy History of cardiac catheterization History of coronary artery bypass graft History of heart artery stent Family History (Updated 10/13/24 @ 14:13 by Nabila Parra) Father Cancer abdominal tumor--unsure type Brother Heart disease Sister Brain mass Social History (Updated 10/13/24 @ 14:14 by Nabila Parra) Smoking Status: Current every day smoker tobacco type: cigarettes quit status: quit date established HPI HPI HPI: 64-year-old male presents due to hemorrhoid, anal fistula, colonoscopy. Patient does have past medical history for end-stage dialysis on home hemodialysis 4 days a week (Friday, Friday, , Friday) via right forearm fistula. Patient is interested in getting on the kidney transplant list and would need a colonoscopy and to deal with the hemorrhoids and possible fistula prior to that. Patient states about 2 years ago in July he was in bed for about 6 weeks and did notice a larger swelling near his anus about the size of an egg yolk. Patient had some clearish drainage from that and also has noticed hemorrhoid more recently and it seems like that the area of the swelling does track towards the hemorrhoid as what he can feel. Patient does admit to draining the hemorrhoid as well as the area of swelling by sterilizing the needle and poking it. Patient states he typically gets clear liquid I will initially bloody and then clear liquid out of both of them thus he thinks they are connected. Patient has not had to poke the area of the fistula recently as he is able to do his expressed an open hole. Patient denies any pain with this. Patient states he has had a hemorrhoid since he was a kid. Patient also states he has severe polycystic disease of his kidneys which she had previously been told he had largest kidneys some doctor has never ever seen. He he states he did have a CT at [facility] sometime in the past we will try to get that record. Patient has never had a colonoscopy, den (more content not included)... Normal [facility] No Panel InformationOrdered By: Dr. Shirley on 10-01-2022 Hepatitis B Surface Antigen Non-Reactive Nonreactive [facility] Serum hepatitis B virus core antibody detectionOrdered By: Dr. Shirley on 10-01-2022 HBV core Ab Ql (S) Negative Negative [facility] Comment on above: Performed at: [facility] [address] [id number] Director: Ted Horne PhD, Phone: [phone] Serum hepatitis B virus surf valery antibody IgG detectionOrdered By: Dr. Shirley on 10-01-2022 HBV surface IgG Ql (S) Non-Reactive [facility] Comment on above: Non Reactive: Incons istent with immunity less than <10 mIU/mL Reactive: Consistent with immunity greater than or equal to 10 mIU/mL Basophil percentageOrdered B y: Dr. Shirley on 09-17-2022 Basophil percentage 4.2 mg/dL 2.5-4.9 [facility] Bilirubin [Mass/Vol] 0.50 mg/dL 0.20-1.00 [facility] Comment on above: For patients on eltr ombopag therapy, use of Dimension [place] TBIL is not recommended. Chloride [Moles/Vol] 109 mmol/L 98-107 [facility] Glucose [Mass/Vol] 96 mg/dL 74-106 [facility] Potassium [Moles/Vol] 4.9 mmol/L 3.5-5.1 [facility] Protein [Mass/Vol] 6.7 g/dL 6.4-8.2 [facility] Sodium [Moles/Vol] 138 mmol/L 136-145 [facility] WBC (Bld) [#/Vol] 6.8 10*3/uL 4.4-11.0 [facility] Blood erythrocytes count (nu mber/volume)Ordered By: Dr. Shirley on 09-17-2022 RBC (Bld) [#/Vol] 4.00 10*6/uL 4.6-6.2 [facility] Blood hemoglobin measurement (mass/volume)Ordered By: Dr. Shirley on 09-17-2022 Hemoglobin (Bld) [Mass/Vol] 11.8 g/dL 13.0-16.5 [facility] Blood platelet mean volumeOr dered By: Dr. Shirley on 09-17-2022 Platelet mean volume (Bld) [Entitic vol] 10.5 fL 6.2-12.0 [facility] Determination of erythrocyte mean corpuscular volume (MCV)Ordered By: Dr. Shirley on 09-17-2022 MCV (RBC) [Entitic vol] 91.8 fL 80-94 [facility] Direct bilirubinOrdered By: Dr. Shirley on 09-17-2022 Bilirubin.direct [Mass/Vol] 0.18 mg/dL 0.00-0.30 [facility] Hematocrit Auto (Bld) [Volum e fraction]Ordered By: Dr. Shirley on 09-17-2022 Hematocrit (Bld) [Volume fraction] 36.7 % 40-54 [facility] - Chemistry and C hemistry - challengeOrdered By: Dr. Shirley on 09-17-2022 ALP [Catalytic activity/Vol] 68 U/L 45-117 [facility] ALT [Catalytic activity/Vol] 14 U/L 16-61 [facility] CO2 [Moles/Vol] 23.0 mmol/L 21.0-32.0 [facility] Globulin (S) [Mass/Vol] 3.5 g/dL 2.2-4.2 [facility] Urea nitrogen/Creatinine [Mass ratio] 9.7 mg/mg 10-20 [facility] - Hematology and Cell countsOrdered By: Dr. Shirley on 09-17-2022 Erythrocyte distribution width (RBC) [Entitic vol] 43.1 fL 35.1-43.9 [facility] Erythrocyte distribution width (RBC) [Ratio] 12.8 % 11.6-14.6 [facility] MCH (RBC) [Entitic mass] 29.5 pg 27.0-32.0 [facility] MCHC Auto (RBC) [Mass/Vol]Or dered By: Dr. Shirley on 09-17-2022 MCHC (RBC) [Mass/Vol] 32.2 g/dL 32-36 [facility] No Panel InformationOrdered By: Dr. Shirley on 09-17-2022 Estimated GFR (MDRD) Amer 14 mL/min >60 [facility] Comment on above: GFR Calc Estimated GFR (MDRD) Non-Af Amer 11 mL/min >60 [facility] Comment on above: Non- GFR Calc Parathyroid Hormone (Intact) 327.7 pg/mL 18.4-80.1 [facility] Vitamin D 25-Hydroxy 45.6 ng/mL [facility] Comment on above: Vitamin D 25(OH) Sta tus Range Deficiency <20 ng/mL (50nmol/L) Insufficiency 20 - 30 ng/mL (50 - 75 nmol/L) Sufficiency 30 - 100 ng/mL (75 - 250 nmol/L) Toxicity >100 ng/mL (>250 nmol/L) Platelets bldOrdered By: Dr. Shirley on 09-17-2022 Platelets (Bld) [#/Vol] 121 10*3/uL 150-450 [facility] Serum or plasma albumin cuong urement (mass/volume)Ordered By: Dr. Shirley on 09-17-2022 Albumin [Mass/Vol] 3.2 g/dL 3.2-5.0 [facility] Serum or plasma calcium cuong urement (mass/volume)Ordered By: Dr. Shirley on 09-17-2022 Calcium [Mass/Vol] 8.6 mg/dL 8.5-10.1 [facility] Serum or plasma creatinine m easurement (mass/volume)Ordered By: Dr. Shirley on 09-17-2022 Creatinine [Mass/Vol] 5.54 mg/dL 0.70-1.30 [facility] Comment on above: The validity of the calculated GFR & GFRAA in patients over 70 years has not been determined. Clinical correlation is essential. Serum or plasma urea nitroge n measurement (mass/volume)Ordered By: Dr. Shirley on 09-17-2022 Urea nitrogen [Mass/Vol] 54 mg/dL 7-18 [facility] Thin prep Papanicolaou smear with manual screeningOrdered By: Dr. Shirley on 09-17-2022 Thin prep Papanicolaou smear with manual screening 11 U/L 15-37 [facility] Thin prep Papanicolaou smear with manual screening 6 5-15 [facility] Urine creatinine measurement (mass/volume)Ordered By: Dr. Shirley on 09-17-2022 Creatinine (U) [Mass/Vol] 67.30 mg/dL NO RANGE EST. [facility] Urine protein measurement (m ass/volume)Ordered By: Dr. Shirley on 09-17-2022 Protein (U) [Mass/Vol] 146.1 mg/dL 0.0-11.8 [facility] Urine protein/creatinine mas s ratioOrdered By: Dr. Shirley on 09-17-2022 Protein/Creatinine (U) [Mass ratio] 2171 mg/g CRE 0-200 [facility] Basophil percentageon 2021 Basophil percentage 4.0 mg/dL 2.5-4.9 [facility] Work Phone: Chloride [Moles/Vol] 111 mmol/L 98-107 [facility] Work Phone: Glucose [Mass/Vol] 92 mg/dL 74-106 [facility] Work Phone: Potassium [Moles/Vol] 4.5 mmol/L 3.5-5.1 [facility] Work Phone: Sodium [Moles/Vol] 137 mmol/L 136-145 [facility] Work Phone: WBC (Bld) [#/Vol] 6.9 10*3/uL 4.4-11.0 [facility] Work Phone: Blood erythrocytes count (nu mber/volume)on 11-19-2021 RBC (Bld) [#/Vol] 4.31 10*6/uL 4.6-6.2 [facility] Work Phone: [phone] Blood hemoglobin measurement (mass/volume)on 11-19-2021 Hemoglobin (Bld) [Mass/Vol] 12.7 g/dL 13.0-16.5 [facility] Work Phone: Blood platelet mean volumeon 11-19-2021 Platelet mean volume (Bld) [Entitic vol] 10.1 fL 6.2-12.0 [facility] Work Phone: [phone] Determination of erythrocyte mean corpuscular volume (MCV)on 11-19-2021 MCV (RBC) [Entitic vol] 90.0 fL 80-94 [facility] Work Phone: Hematocrit Auto (Bld) [Volum e fraction]on 11-19-2021 Hematocrit (Bld) [Volume fraction] 38.8 % 40-54 [facility] Work Phone: [phone] Laboratory - Chemistry and C hemistry - challengeon 11-19-2021 CO2 [Moles/Vol] 20.0 mmol/L 21.0-32.0 [facility] Work Phone: [phone] Urea nitrogen/Creatinine [Mass ratio] 9.7 mg/mg 10-20 [facility] Work Phone: Laboratory - Hematology and Cell countson 11-19-2021 Erythrocyte distribution width (RBC) [Entitic vol] 44.6 fL 35.1-43.9 [facility] Work Phone: Erythrocyte distribution width (RBC) [Ratio] 13.5 % 11.6-14.6 [facility] Work Phone: MCH (RBC) [Entitic mass] 29.5 pg 27.0-32.0 [facility] Work Phone: MCHC Auto (RBC) [Mass/Vol]on 11-19-2021 MCHC (RBC) [Mass/Vol] 32.7 g/dL 32-36 [facility] Work Phone: No Panel Informationon 11-19 Estimated GFR (MDRD) Amer 18 mL/min >60 [facility] Work Phone: Comment on above: GFR Calc Estimated GFR (MDRD) Non-Af Amer 15 mL/min >60 [facility] Work Phone: Comment on above: Non- GFR Calc Parathyroid Hormone (Intact) 148.8 pg/mL 18.4-80.1 [facility] Work Phone: Vitamin D 25-Hydroxy 61.0 ng/mL [facility] Work Phone: Comment on above: Vitamin D 25(OH) Sta tus Range Deficiency <20 ng/mL (50nmol/L) Insufficiency 20 - 30 ng/mL (50 - 75 nmol/L) Sufficiency 30 - 100 ng/mL (75 - 250 nmol/L) Toxicity >100 ng/mL (>250 nmol/L) Platelets bldon 11-19-2021 Platelets (Bld) [#/Vol] 146 10*3/uL 150-450 [facility] Work Phone: Serum or plasma albumin cuong urement (mass/volume)on 11-19-2021 Albumin [Mass/Vol] 3.3 g/dL 3.2-5.0 [facility] Work Phone: Serum or plasma calcium cuong urement (mass/volume)on 11-19-2021 Calcium [Mass/Vol] 8.9 mg/dL 8.5-10.1 [facility] Work Phone: Serum or plasma creatinine m easurement (mass/volume)on 11-19-2021 Creatinine [Mass/Vol] 4.42 mg/dL 0.70-1.30 [facility] Work Phone: Comment on above: The validity of the calculated GFR & GFRAA in patients over 70 years has not been determined. Clinical correlation is essential. Serum or plasma urea nitroge n measurement (mass/volume)on 11-19-2021 Urea nitrogen [Mass/Vol] 43 mg/dL 7-18 [facility] Work Phone: Urine creatinine measurement (mass/volume)on 11-19-2021 Creatinine (U) [Mass/Vol] 109.00 mg/dL NO RANGE EST. [facility] Work Phone: [phone] Urine protein measurement (m ass/volume)on 11-19-2021 Protein (U) [Mass/Vol] 61.4 mg/dL 0.0-11.8 [facility] Work Phone: [phone] Urine protein/creatinine mas s ratioon 11-19-2021 Protein/Creatinine (U) [Mass ratio] 563 mg/g CRE 0-200 [facility] Work Phone: Basophil percentageon 2021 Chloride [Moles/Vol] 111 mmol/L 98-107 [facility] Work Phone: [phone] Glucose [Mass/Vol] 91 mg/dL 74-106 [facility] Work Phone: Potassium [Moles/Vol] 4.7 mmol/L 3.5-5.1 [facility] Work Phone: [phone] Sodium [Moles/Vol] 140 mmol/L 136-145 [facility] Work Phone: Laboratory - Chemistry and C hemistry - challengeon 08-10-2021 CO2 [Moles/Vol] 25.0 mmol/L 21.0-32.0 [facility] Work Phone: Urea nitrogen/Creatinine [Mass ratio] 10.7 mg/mg 10-20 [facility] Work Phone: No Panel Informationon 08-10 Estimated GFR (MDRD) Amer 18 mL/min >60 [facility] Work Phone: Comment on above: GFR Calc Estimated GFR (MDRD) Non-Af Amer 15 mL/min >60 [facility] Work Phone: Comment on above: Non- GFR Calc Serum or plasma calcium cuong urement (mass/volume)on 08-10-2021 Calcium [Mass/Vol] 9.1 mg/dL 8.5-10.1 [facility] Work Phone: Serum or plasma creatinine m easurement (mass/volume)on 08-10-2021 Creatinine [Mass/Vol] 4.29 mg/dL 0.70-1.30 [facility] Work Phone: Comment on above: The validity of the calculated GFR & GFRAA in patients over 70 years has not been determined. Clinical correlation is essential. Serum or plasma urea nitroge n measurement (mass/volume)on 08-10-2021 Urea nitrogen [Mass/Vol] 46 mg/dL 7-18 [facility] Work Phone: Thin prep Papanicolaou smear with manual screeningon 08-10-2021 Thin prep Papanicolaou smear with manual screening 4 5-15 [facility] Work Phone: Urine creatinine measurement (mass/volume)on 08-10-2021 Creatinine (U) [Mass/Vol] 92.10 mg/dL NO RANGE EST. [facility] Work Phone: Urine protein measurement (m ass/volume)on 08-10-2021 Protein (U) [Mass/Vol] 51.2 mg/dL 0.0-11.8 [facility] Work Phone: Urine protein/creatinine mas s ratioon 08-10-2021 Protein/Creatinine (U) [Mass ratio] 556 mg/g CRE 0-200 [facility] Work Phone: CNCOon 10-18-2020 CNCO Letter Text [facility] 09-29-2020 CNPN Telephone (FAMPWS) MARLO ADAMSON ([id number]) 1960 Date Time Provider Department 09/29/20 CETO HANDY III During your visit today, we recorded the following information about you: Kathya Merrill Sebastian RN 09/29/2020 1:09 PM Signed Patient reports Dr. Shirley (kidney) faxed a form to pcp (social security), that he was not suppose to. Reports that form is for him to fill out. Please disregard that form if you receive it. To Wikles III MD 09/29/2020 5:38 PM Signed noted To Wilkes III MD Allergies As of Date: 09/29/2020 Noted Allergy Reaction LIPITOR (ATORVASTATIN CALCIUM) 05/15/2010 14 - Other: See Comments Comments: myalgia Date Reviewed: 07/04/2020 Reviewed by: Lexus Mcneil Ma - Fully Assessed Reason for Visit: Form for SS [Other] Prescriptions as of 09/29/2020 Sig: ALBUTEROL SULFATE HFA 90 MCG/* Inhale 2 Puffs as instructed * TADALAFIL 20 MG TABLET use as needed PRAVASTATIN 40 MG TABLET Take 1 tablet by mouth daily * METOPROLOL TARTRATE 25 MG TAB* Take 1 tablet by mouth twice * LISINOPRIL 10 MG TABLET Take 1 tablet by mouth once d* CHOLECALCIFEROL (VITAMIN D3) * Take 2,000 Units by mouth onc* ASPIRIN 81 MG TABLET Take one(1) tablet daily. Problem List As Of Date 09/29/2020 Noted Resolved ESOPHAGEAL REFLUX [K21.9] 01/29/2007 Cellulitis and abscess of unspecified site [L03*01/29/2007 12/15/2018 MT NOS EPISODE CARE UNSPEC [I21.9] 02/03/2007 Hematuria [599.7] 05/14/2007 12/15/2018 Erectile dysfunction [N52.9] 05/15/2010 Renal calculi [N20.0] 05/31/2011 BPH (benign prostatic hyperplasia) [N40.0] 06/10/2011 Kidney stone [N20.0] 06/10/2011 Testalgia [N50.819] 06/10/2011 12/15/2018 Polycystic kidney disease [Q61.3] 08/21/2011 ASHD (arteriosclerotic heart disease) [I25.10] 08/27/2011 External hemorrhoids [K64.4] 08/27/2011 Inguinal hernia bilateral, non-recurrent [K40.2*09/08/2012 Hematospermia [R36.1] 04/21/2013 12/15/2018 Medication monitoring encounter [Z51.81] 02/18/2014 Tobacco abuse [Z72.0] 03/02/2014 Essential hypertension [I10] 08/17/2015 CKD (chronic kidney disease) stage 4, GFR 15-29*06/17/2016 Encounter Status:Closed by TO WILKES III, MD on 09/29/20 Normal [facility] XR Chest PA and Lateralon IMPRESSION: Stable exam without acute findings. Machine Baster: [id number] Transcribe Date/Time: Jul 04 2020 5:42P Dictated by : CESARIO DÍAZ MD This examination was interpreted and the report reviewed and electronically signed by: CESARIO DÍAZ MD on Jul 04 2020 5:46PM [facility] DIVISION OF RADIOLOGY * * *Final Report* * * DATE OF EXAM: Jul 04 2020 5:39PM WOX [id number] - XR CHEST 2V FRONTAL/LAT / PROCEDURE REASON: Suspected 2019 novel coronavirus infection * * * * Physician Interpretation * * * * EXAMINATION: CHEST RADIOGRAPH (2 VIEW FRONTAL & LATERAL) CLINICAL HISTORY: Suspected 2019 novel coronavirus infection MQ: XC2_6 EXAM DATE/TIME: 07/04/2020 5:39 PM COMPARISON: Chest x-ray on 12/15/2015. RESULT: Lines, tubes, and devices: None. Lungs and pleura: No consolidation. No lung mass. No pleural effusion. No pneumothorax. Large left-sided pericardial fat pad is noted. Cardiomediastinal silhouette: Normal cardiomediastinal silhouette. There are coronary artery stents in place. Bones and soft tissues: Status post median sternotomy. DIVISION OF RADIOLOGY Provider, [facility] - 07/04/2020 * * *Final Report* * * DATE OF EXAM: Jul 04 2020 5:39PM WOX [id number] - XR CHEST 2V FRONTAL/LAT / PROCEDURE REASON: Suspected 2019 novel coronavirus infection * * * * Physician Interpretation * * * * EXAMINATION: CHEST RADIOGRAPH (2 VIEW FRONTAL & LATERAL) CLINICAL HISTORY: Suspected 2019 novel coronavirus infection MQ: XC2_6 EXAM DATE/TIME: 07/04/2020 5:39 PM COMPARISON: Chest x-ray on 12/15/2015. RESULT: Lines, tubes, and devices: None. Lungs and pleura: No consolidation. No lung mass. No pleural effusion. No pneumothorax. Large left-sided pericardial fat pad is noted. Cardiomediastinal silhouette: Normal cardiomediastinal silhouette. There are coronary artery stents in place. Bones and soft tissues: Status post median sternotomy. IMPRESSION IMPRESSION: Stable exam without acute findings. Machine Baster: PSCB Transcribe Date/Time: Jul 04 2020 5:42P Dictated by : CESARIO DÍAZ MD This examination was interpreted and the report reviewed and electronically signed by: CESARIO DÍAZ MD on Jul 04 2020 5:46PM EST [facility] Radiology Study observation (narrative) [facility] XR Chest PA and LateralOrder ed By: Ccf Provider on 07-04-2020 [facility] Vital Signs Date Time Vital Sign Value Performing Clinician Faci lity 01-21-2025 16:26-0400 Body temperature 97.7 [degF] Dr. Marlo Pollard DO Work Phone: [facility] 01-21-2025 16:26-0400 Diastolic blood pressure 77 mm[Hg] Dr. Marlo Pollard DO Work Phone: [facility] 01-21-2025 16:26-0400 Heart rate 56 /min Dr. Marlo Pollard DO Work Phone: [facility] 01-21-2025 16:26-0400 Respiratory rate 16 /min Dr. Marlo Pollard DO Work Phone: [facility] 01-21-2025 16:26-0400 SaO2% (BldA) [Mass fraction] 97 % Dr. Marlo Pollard DO Work Phone: [facility] 01-21-2025 16:26-0400 Systolic blood pressure 149 mm[Hg] Dr. Marlo Pollard DO Work Phone: [facility] 01-21-2025 10:25-0400 Body height 177.[address] Marlo Pollard DO Work Phone: [facility] 01-21-2025 10:25-0400 Body mass index (BMI) [Ratio] 23.1 kg/m2 Dr. Marlo Pollard DO Work Phone: [facility] 01-21-2025 10:25-0400 Body weight [address] aMrlo Pollard DO Work Phone: [facility] 12-22-2024 08:50-0400 Body temperature 97.3 [degF] Dr. Marlo Pollard DO Work Phone: [facility] 12-22-2024 08:50-0400 Diastolic blood pressure 66 mm[Hg] Dr. Marlo Pollard DO Work Phone: [facility] 12-22-2024 08:50-0400 Heart rate 63 /min Dr. Marlo Pollard DO Work Phone: [facility] 12-22-2024 08:50-0400 Respiratory rate 16 /min Dr. Marlo Pollard DO Work Phone: [facility] 12-22-2024 08:50-0400 SaO2% (BldA) [Mass fraction] 100 % Dr. Marlo Pollard DO Work Phone: [facility] 12-22-2024 08:50-0400 Systolic blood pressure 101 mm[Hg] Dr. Marlo Pollard DO Work Phone: [facility] 12-22-2024 06:33-0400 Body height 177.[address] Marlo Pollard DO Work Phone: [facility] 12-22-2024 06:33-0400 Body mass index (BMI) [Ratio] 23.3 kg/m2 Dr. Marlo Pollard DO Work Phone: [facility] 12-22-2024 06:33-0400 Body weight [address] Marlo Pollard DO Work Phone: [facility] 11-02-2024 13:11-0400 Heart rate 67 /min Dr. Marlo Pollard DO Work Phone: [facility] 11-02-2024 13:11-0400 Respiratory rate 16 /min Dr. Marlo Pollard DO Work Phone: [facility] 11-02-2024 13:11-0400 SaO2% (BldA) [Mass fraction] 92 % Dr. Mralo Pollard DO Work Phone: [facility] 11-02-2024 13:06-0400 Body temperature 97.8 [degF] Dr. Marlo Pollard DO Work Phone: [facility] 11-02-2024 13:06-0400 Diastolic blood pressure 65 mm[Hg] Dr. Marlo Pollard DO Work Phone: [facility] 11-02-2024 13:06-0400 Systolic blood pressure 138 mm[Hg] Dr. Marlo Pollard DO Work Phone: [facility] 11-02-2024 03:44-0400 Inhaled oxygen flow rate 2 L/min Dr. Marlo Pollard DO Work Phone: [facility] 11-01-2024 11:41-0400 Body mass index (BMI) [Ratio] 22.2 kg/m2 Dr. Marlo Pollard DO Work Phone: [facility] 11-01-2024 11:41-0400 Body weight 70.[address] Marlo Pollard DO Work Phone: [facility] 10-31-2024 16:55-0400 Body height 177.[address] Marlo Pollard DO Work Phone: [facility] 10-31-2024 03:47-0400 Body temperature 98.1 [degF] Dr. Marlo Pollard DO Work Phone: [facility] 10-31-2024 03:47-0400 Diastolic blood pressure 69 mm[Hg] Dr. Marlo Pollard DO Work Phone: [facility] 10-31-2024 03:47-0400 Heart rate 77 /min Dr. Marlo Pollard DO Work Phone: [facility] 10-31-2024 03:47-0400 Respiratory rate 16 /min Dr. Marlo Pollard DO Work Phone: [facility] 10-31-2024 03:47-0400 SaO2% (BldA) [Mass fraction] 93 % Dr. Marlo Pollard DO Work Phone: [facility] 10-31-2024 03:47-0400 Systolic blood pressure 146 mm[Hg] Dr. Marlo Pollard DO Work Phone: [facility] 10-31-2024 03:45-0400 Inhaled oxygen flow rate 3 L/min Dr. Marlo Pollard DO Work Phone: [facility] 10-31-2024 01:58-0400 Body height 177.[address] Marlo Pollard DO Work Phone: [facility] 10-31-2024 01:58-0400 Body mass index (BMI) [Ratio] 22.7 kg/m2 Dr. Marlo Pollard DO Work Phone: [facility] 10-31-2024 01:58-0400 Body weight 71.[address] Marlo Pollard DO Work Phone: [facility] 10-13-2024 14:14-0400 Body mass index (BMI) [Ratio] 24.2 kg/m2 Dr. Marlo Pollard DO Work Phone: [facility] 10-13-2024 14:14-0400 Body weight 76.[address] Marlo Pollard DO Work Phone: [facility] 10-13-2024 14:14-0400 Diastolic blood pressure 79 mm[Hg] Dr. Marlo Pollard DO Work Phone: [facility] 10-13-2024 14:14-0400 Heart rate 66 /min Dr. Marlo Pollard DO Work Phone: [facility] 10-13-2024 14:14-0400 Respiratory rate 17 /min Dr. Marlo Pollard DO Work Phone: [facility] 10-13-2024 14:14-0400 SaO2% (BldA) [Mass fraction] 97 % Dr. Marlo Pollard DO Work Phone: [facility] 10-13-2024 14:14-0400 Systolic blood pressure 156 mm[Hg] Dr. Marlo Pollard DO Work Phone: [facility] Encounters Encounter Date Encounter Type Care Provider Facility Start: 01-21-2025 Non-patient / Non-visit Dr. Ervin Mckoy MD -[facility] Start: 01-21-2025 End: 01-21-2025 Admission to same day surgery center Dr. Maria Ines Mckoy [facility] Start: 01-21-2025 End: 01-21-[address] Marlo Pollard DO Work Phone: [facility] Start: 12-22-2024 Non-patient / Non-visit Dr. Ervin Mckoy MD -[facility] Start: 12-22-2024 End: 12-22-2024 Admission to same day surgery center Dr. Maria Ines Mckoy MD -Endoscopy Work Phone: Start: 12-22-2024 End: 12-22-[address] Marlo Pollard DO Work Phone: [facility] Work Phone: Start: 11-02-2024 Non-patient / Non-visit Dr. Himanshu lee [facility] Work Phone: Start: 11-01-2024 Non-patient / Non-visit Dr. Himanshu lee [facility] Work Phone: Start: 10-31-2024 ambulatory Marlo Pollard Facility: [facility] Start: 10-31-2024 End: 11-02-2024 Evaluation and management of inpatient Dr. Elidia Cunningham MD -Medical Surgical 3 Work Phone: Start: 10-13-2024 End: 10-13-[address] Maria Ines Mckoy MD -[facility] Work Phone: Start: 10-13-2024 End: 10-13-2024 ambulatory [place] [facility] Facility:[facility] Start: 10-01-2022 End: 10-01-2022 ambulatory [facility] Work Phone: Start: 10-01-2022 End: 10-01-2022 Patient encounter procedure [facility] Start: 09-17-2022 End: 09-17-2022 ambulatory [facility] Work Phone: Start: 09-17-2022 End: 09-17-2022 Patient encounter procedure [facility] Start: 11-19-2021 End: 11-19-[address] Marlo Pollard Work Phone: [facility] Start: 08-10-2021 End: 08-10-[address] [facility] Start: 07-31-2021 End: 07-31-[address] Marlo Pollard Work Phone: [facility] Start: 07-04-2020 End: 07-04-2020 Subsequent hospital visit by physician Xr [facility] Work Phone: Radiology Comment on above: Suspected 2019 novel coronavirus infection [Z20.828] Procedures Date Procedure Procedure Detail Performing Clinician Start: 01-21-[address] Margo Pollard DO Work Phone: Start: 12-22-[address] Marlo hoover DO Work Phone: Start: 11-02-[address] Marlo Pollard DO Work Phone: Start: 11-01-2024 Clostridium diffic[address] e detection Dr. Marlo Pollard DO Work Phone: Start: 11-01-[address] Marlo Pollard DO Work Phone: Start: 11-01-2024 Measurement of occul t blood in stool specimen using immunoassay Dr. Marlo Pollard DO Work Phone: Start: 11-01-[address] Marlo Pollard DO Work Phone: Start: 11-01-2024 Iadna-dna/rna gi pth gn multiplex probe tq 6-11 Dr. Marlo Pollard DO Work Phone: Start: 10-31-2024 B[address] nucleic acid assay Dr[address] Marlo Pollard DO Work Phone: Start: 10-31-2024 Gram stain microscopy D onur Pollard DO Work Phone: Start: 10-31-2024 Legionella pneumophi la antigen assay Dr. Marlo Pollard DO Work Phone: Start: 10-31-[address] Marlo Pollard DO Work Phone: Start: 10-31-[address] Marlo Pollard DO Work Phone: Start: 10-31-2024 End: 10-31-2024 Streptococcus pneumoniae antigen assay Dr. Marlo Pollard DO Work Phone: Start: 10-31-2024 X-ray of chest, PA a nd lateral views Dr. Marlo Pollard DO Work Phone: Start: 10-31-2024 Serum inorganic phos phate measurement Dr. Marlo Pollard DO Work Phone: Start: 07-04-2020 Radiologic exam chest 2 views Emilee Allen PA-C Work Phone: Start: 06-14-2020 Lipid 1996 panel - S stevo or Plasma [facility] Work Phone: Plan of Treatment Date Care Activity Detail Author Start: 2035 RSV Vaccine (1 - 1-dose 75+ series) RSV Vaccine (1 - 1-dose 75+ series) [facility] Start: 04-14-2029 Urine microalbumin profile DTaP,Tdap,Td Vaccine (3 - Td or Tdap) [facility] Start: 06-14-2025 Lipid panel Lipid Screening [facility] Start: 04-18-2025 Prostate specific antigen measurement Prostate Cancer Screening Discussion [facility] Start: 01-21-2025 Patient discharge [facility] Start: 12-22-2024 Colsc flx w/rmvl of tumor polyp lesion snare tq COLONOSCOPY W/LESION REMOVAL [facility] Start: 12-22-2024 Patient discharge [facility] Start: 11-02-2024 Patient discharge [facility] Start: 11-02-2024 Physiotherapy of chest [facility] Start: 11-01-2024 End: 11-01-2024 [facility] Start: 11-01-2024 Hemodialysis care [facility] Start: 10-31-2024 Following clinical pathway protocol [facility] Start: 10-31-2024 Assessment of risk of venous thromboembolism [facility] Start: 10-31-2024 Bacteria identified in Sputum by Culture [facility] Start: 10-31-2024 Fall prevention [facility] Start: 10-31-2024 Incentive spirometry [facility] Start: 10-31-2024 Inhalation therapy procedure [facility] Start: 10-31-2024 Insertion of catheter into peripheral vein [facility] Start: 10-31-2024 Introduction of urinary catheter [facility] Start: 10-31-2024 Measuring intake and output [facility] Start: 10-31-2024 Methicillin resistant Staphylococcus aureus (MRSA) DNA [Presence] in Nose by ALICE with probe detection [facility] Start: 10-31-2024 Methicillin resistant Staphylococcus aureus screening test [facility] Start: 10-31-2024 Oxygen therapy [facility] Start: 10-31-2024 Providing care according to standard [facility] Start: 10-31-2024 Provision of activity privileges [facility] Start: 10-31-2024 Referral to form setter steel forms [facility] Start: 10-31-2024 Referral to occupational therapist [facility] Start: 10-31-2024 Referral to service [facility] Start: 10-31-2024 Taking nasal swab [facility] Start: 10-31-2024 [facility] Start: 10-31-2024 Following clinical pathway protocol [facility] Start: 10-31-2024 Verification routine [facility] Start: 10-31-2024 Legionella pneumophila Ag [Presence] in Urine [facility] Start: 10-31-2024 Respiratory pathogens DNA and RNA panel - Respiratory specimen by ALICE with probe detection [facility] Start: 10-31-2024 Streptococcus pneumoniae antigen assay [facility] Start: 10-31-2024 Admission procedure [facility] Start: 10-31-2024 Serum inorganic phosphate measurement [facility] Start: 10-31-2024 Patient referral to dietitian [facility] Start: 10-31-2024 [facility] Start: 03-28-2024 Covid-19 Vaccine () Covid-19 Vaccine () [facility] Start: 03-28-2024 Influenza vaccination Influenza Vaccine (#1) [facility] Start: 04-19-2023 Diabetes Screening Diabetes Screening [facility] Start: 06-19-2021 Annual PCP Team Chronic Disease Visit Annual PCP Team Chronic Disease Visit [facility] Start: 06-14-2021 Hepatitis B surface antibody level LDL Cholesterol [facility] Start: 04-19-2021 Complete blood count Hemoglobin/Hematocrit [facility] Start: 06-18-2020 Creatinine measurement Serum Creatinine [facility] Start: 06-07-2020 Screening for malignant neoplasm of colon [facility] Start: 08-12-2016 Pneumococcal vaccination Pneumococcal Vaccine (2 of 2 - PPSV23 or PCV20) [facility] Start: 2010 Shingrix Vaccine (1 of 2) Shingrix Vaccine (1 of 2) [facility] Start: 2005 Screening for malignant neoplasm of colon [facility] Start: 1978 Anxiety Screening Anxiety Screening [facility] Start: 1978 BP Controlled (<130/80) BP Controlled (<130/80) [facility] Start: 1978 Depression Screening Depression Screening [facility] Start: 1978 Hepatitis C screening Hepatitis C Screening [facility] Start: 1978 HIV screening HIV Screening [facility] Alanine aminotransfe rase [Enzymatic activity/volume] in Serum or Plasma [facility] Albumin [Mass/volume ] in Serum or Plasma [facility] Alkaline phosphatase [Enzymatic activity/volume] in Serum or Plasma [facility] Anion gap in Serum o r Plasma [facility] Bilirubin, total measurement [facility] BUN/Creatinine ratio [facility] Calcium [Mass/volume ] in Serum or Plasma [facility] Carbon dioxide, tota l [Moles/volume] in Central venous blood [facility] Colonoscopy [facility] Creatinine [Mass/vol ume] in Serum or Plasma [facility] Erythrocyte mean corpuscular volume determination [facility] Glucose [Mass/volume ] in Serum or Plasma [facility] Hematocrit [Volume Fraction] of Blood [facility] Hemoglobin [Mass/vol ume] in Blood [facility] Leukocytes [#/volume ] in Blood [facility] Magnesium measurement [facility] Mean corpuscular hem oglobin concentration determination [facility] Mean corpuscular hem oglobin determination [facility] Measurement of renal function [facility] Neutrophil count [facility] Neutrophil percent differential count [facility] Patient referral [facility] Work Phone: Platelets [#/volume] in Blood [facility] Potassium measurement [facility] Red blood cell count [facility] Red cell distributio n width determination [facility] Serum chloride measurement [facility] Sodium measurement [facility] Total protein measurement [facility] Urea nitrogen [Mass/ volume] in Serum or Plasma [facility] Immunizations Immunization Date Immunization Notes Care Provider Fa gerard 04-14-2019 tetanus toxoid, redu bud diphtheria toxoid, and acellular pertussis vaccine, adsorbed [facility] [place] Work Phone: [facility] 06-17-2016 pneumococcal conjuga te vaccine, 13 valent [facility] [place] Work Phone: [facility] 06-17-2016 influenza virus vacc ine, unspecified formulation [facility] [place] Work Phone: [facility] 06-17-2013 tetanus toxoid, redu bud diphtheria toxoid, and acellular pertussis vaccine, adsorbed Xr [facility] Work Phone: [facility] Payers Date Payer Category Payer Medicare [id number] 2024 Self-pay [id number] 2024 Medicare [id number] 2015 Medicare MEDICARE MEDICAR E A AND B [id number] 2015-Present [phone] [place] [address] Medicare [id number] Medicare [id number] Unknown [id number] Unknown [id number] Unknown [id number] Unknown [id number] Unknown [id number] Unknown [id number] Unknown [id number] Unknown [id number] Unknown [id number] Unknown [id number] Social History Date Type Detail Facility Start: 06-06-2021 End: 06-06-2021 Tobacco smoking status NHIS Unknown if ever smoked [facility] Start: 1960 Sex Assigned At Male [facility] Start: 07-03-2011 End: 01-21-2025 Tobacco smoking status NHIS Smokes tobacco daily [facility] Work Phone: History of tobacco use Cigarette Smoker [facility] Start: 07-03-2011 End: 2020 Cigarettes smoked current (pack per day) - Reported 1 [facility] Start: 07-03-2011 Tobacco use and exposure Smokeless tobacco non-user [facility] Start: 06-19-2020 Alcoholic beverage intake Current non-drinker of alcohol (finding) [facility] Start: 06-19-2020 End: 2020 Tobacco use panel [facility] National Score (1-10 0), lower number is lower risk Not on file [facility] Start: 05-15-2010 Tobacco Comment occasionally [facility] Start: 1960 Sex assigned at Not on file [facility] Start: 06-04-2020 End: 07-04-2020 Exposure to SARS-CoV-2 (event) Not sure [facility] Start: 10-31-2024 End: 11-02-2024 Sex Male (finding) [facility] Medical Equipment Procedure Code Equipment Code Equipment Origin al Text Equipment Identifier Dates Creation, AV fistula SUTURE,LIGA CLIP MED [id number] FDA Start: 06-08-2021 Creation, AV fistula SUTURE,LIGA CLIP MED [id number] FDA Start: 06-08-2021 Creation, AV fistula SUTURE,LIGA CLIP SM LT-100 FDA Start: 06-08-2021 Creation, AV fistula SUTURE,LIGA CLIP SM LT-100 FDA Start: 06-08-2021 Creation, AV fistula SUTURE,LIGA CLIP MED [id number] FDA Start: 06-08-2021 Creation, AV fistula SUTURE,LIGA CLIP MED [id number] FDA Start: 06-08-2021 Creation, AV fistula SUTURE,LIGA CLIP SM LT-100 FDA Start: 06-08-2021 Creation, AV fistula SUTURE,LIGA CLIP SM LT-100 FDA Start: 06-08-2021 Creation, AV fistula SUTURE,LIGA CLIP MED [id number] FDA Start: 06-08-2021 Creation, AV fistula SUTURE,LIGA CLIP MED [id number] FDA Start: 06-08-2021 Creation, AV fistula SUTURE,LIGA CLIP SM LT-100 FDA Start: 06-08-2021 Creation, AV fistula SUTURE,LIGA CLIP SM LT-100 FDA Start: 06-08-2021 Creation, AV fistula SUTURE,LIGA CLIP MED [id number] FDA Start: 06-08-2021 Creation, AV fistula SUTURE,LIGA CLIP MED [id number] FDA Start: 06-08-2021 Creation, AV fistula SUTURE,LIGA CLIP SM LT-100 FDA Start: 06-08-2021 Creation, AV fistula SUTURE,LIGA CLIP SM LT-100 FDA Start: 06-08-2021 Creation, AV fistula SUTURE,LIGA CLIP MED [id number] FDA Start: 06-08-2021 Creation, AV fistula SUTURE,LIGA CLIP MED [id number] FDA Start: 06-08-2021 Creation, AV fistula SUTURE,LIGA CLIP SM LT-100 FDA Start: 06-08-2021 Creation, AV fistula SUTURE,LIGA CLIP SM LT-100 FDA Start: 06-08-2021 Creation, AV fistula SUTURE,LIGA CLIP MED [id number] FDA Start: 06-08-2021 Creation, AV fistula SUTURE,LIGA CLIP MED [id number] FDA Start: 06-08-2021 Creation, AV fistula SUTURE,LIGA CLIP SM LT-100 FDA Start: 06-08-2021 Creation, AV fistula SUTURE,LIGA CLIP SM LT-100 FDA Start: 06-08-2021 Creation, AV fistula SUTURE,LIGA CLIP MED [id number] FDA Start: 06-08-2021 Creation, AV fistula SUTURE,LIGA CLIP MED [id number] FDA Start: 06-08-2021 Creation, AV fistula SUTURE,LIGA CLIP SM LT-100 FDA Start: 06-08-2021 Creation, AV fistula SUTURE,LIGA CLIP SM LT-100 FDA Start: 06-08-2021 Goals Date Patient Goal Desired Activity /State Functional Status Date Assessment Result Facility 11-02-2024 Functional status Ambulates;Bathroom Priv [facility] Work Phone: Mental Status Date Assessment Result Facility 01-21-2025 Cognitive function Voice/Name [facility] Work Phone: 12-22-2024 Cognitive function Voice/Name [facility] Work Phone: 11-02-2024 Cognitive function Voice/Name [facility] Work Phone: 10-31-2024 Cognitive function Level Of Cons ciousness Awake;Alert;Appropriate;Follow s Commands [facility] Work Phone: Clinical Notes 2019 to 01-21-2025 Note Date & Type Note Facility 01-21-2025 Discharge summary Note Date/Time January 21, 2025 2:19pm [facility] Medical Records Department [address] [place] [address] Instructions for Home/Discharge Instructions 01/21/25 1417 MR#: [id number] Acct: [id number] Name: MARLO ADAMSON Rep #:[id number] : 1960 64 From: Maria Ines Mckoy MD PCP: Dr. Marlo Pollard, Status[place] [facility] [place] Discharge Instructions Diet Discharge Diet: Light diet - advance as tolerated Activity Discharge Activity: May Shower (No Mercedez for sitz bath's) Lifting Restrictions: No lifting greater than 20 pounds x 3 weeks Dressing / Incision Call your doctor if your incision/area has: Continuous Slow Oozing, Sudden Increased Bleeding, Increased Pain/ Swelling and Increased Redness Additional Dressing/Incision Instructions:: Sitz bath's daily/as needed Follow Up Care Please Follow Up With: Maria Ines Mckoy MD When: 1 to 2 weeks call the office for follow-up appointment [phone] Test Results: Test results from this visit will be discussed in further detail at your follow-up appointment, if applicable. Discharge Plan Admission Attending Provider: Maria Ines Mckoy Primary Care Provider: Marlo Pollard Instructions Print Language: Finnish Discharge Orders/Prescriptions Prescriptions: Continued metoprolol tartrate 25 mg tablet 25 mg PO BID pravastatin 40 mg tablet 40 mg PO QHS cholecalciferol (vitamin D3) 125 mcg (5,000 unit) capsule 125 mcg PO DAILY Renal-Svetlana 0.8 mg tablet 1 tab PO QDAY oxycodone 10 mg tablet 10 mg PO TID PRN (Reason: pain) (DME) hydrocortisone 2.5%/lidocaine 5% suppository (compound) Suppository See Rx Instructions .ROUTE Qty: 30 1RF Rx Instructions: insert rectum twice daily hydrocortisone [Proctozone-HC] 2.5 % cream with perineal applicator 1 applic IA QD-BID PRN (Reason: hemorrhoids) Qty: 30 0RF lidocaine-prilocaine 2.5-2.5 % cream 1 applic topical DAILY PRN (Reason: SKIN) calcitriol 0.25 mcg capsule 0.25 mcg PO DAILY ondansetron 4 mg tablet,disintegrating 4 mg PO Q4H PRN PRN (Reason: nausea and vomiting) Held aspirin 81 mg tablet,delayed release (DR/EC) 81 mg PO DAILY Hold Instructions: Resume on 01/26/25. Referrals / Follow Up: Marlo Pollard DO [Primary Care Provider] - Disposition Disposition (needs filled in before D/C Order can be placed): Home, Self Care 01/21/25 1419<Electronically signed by Maria Ines Mckoy MD>Maria Ines Mckoy MD CC: Dr. Marlo Pollard DO ~ Signed [facility] Work Phone: [phone] 246-746106-27-2025 Consult note [facility] Medical Records Department [address] [place] [address] Anesthesia Postop Eval I 01/21/25 1429 MR#: [id number] Acct: [id number] Name: MARLO ADAMSON Rodrigo Rep #:[id number] : 1960 64 From: Rosy Garcia PCP: Dr. 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 Marlo Pollard, Status:[place] [facility] [place] Discharge Instructions Diet Discharge Diet: Light diet - advance as tolerated Activity Discharge Activity: May Shower (No Mer[place]ez for sitz bath's) Lifting Restrictions: No lifting greater than 20 pounds x 3 weeks Dressing / Incision Call your doctor if your incision/area has: Continuous Slow Oozing, Sudden Increased Bleeding, Increased Pain/ Swelling and Increased Redness Additional Dressing/Incision Instructions:: Sitz bath's daily/as needed Follow Up Care Please Follow Up With: Maria Ines Mckoy MD When: 1 to 2 weeks call the office for follow-up appointment [phone] Test Results: Test results from this visit will be discussed in further detail at your follow- up appointment, if applicable. Discharge Plan Admission Attending Provider: Maria Ines Mckoy Primary Care Provider: Marlo Pollard Instructions Print Language: Finnish Discharge Orders/Prescriptions Prescriptions: Continued metoprolol tartrate 25 mg tablet 25 mg PO BID pravastatin 40 mg tablet 40 mg PO QHS cholecalciferol (vitamin D3) 125 mcg (5,000 unit) capsule 125 mcg PO DAILY Renal-Svetlana 0.8 mg tablet 1 tab PO QDAY oxycodone 10 mg tablet 10 mg PO TID PRN (Reason: pain) (DME) hydrocortisone 2.5%/lidocaine 5% suppository (compound) Suppository See Rx Instructions .ROUTE Qty: 30 1RF Rx Instructions: insert rectum twice daily hydrocortisone [Proctozone-HC] 2.5 % cream with perineal applicator 1 applic IA QD-BID PRN (Reason: hemorrhoids) Qty: 30 0RF lidocaine-prilocaine 2.5-2.5 % cream 1 applic topical DAILY PRN (Reason: SKIN) calcitriol 0.25 mcg capsule 0.25 mcg PO DAILY ondansetron 4 mg tablet,disintegrating 4 mg PO Q4H PRN PRN (Reason: nausea and vomiting) Held aspirin 81 mg tablet,delayed release (DR/EC) 81 mg PO DAILY Hold Instructions: Resume on 01/26/25. Referrals / Follow Up: Marlo Pollard DO [Primary Care Provider] - Disposition Disposition (needs filled in before D/C Order can be placed): Home, Self Care 01/21/25 1419Maria Ines Mckoy MD CC: Dr. Marlo Pollard DO ~ Signed [facility]06-27-2025 Consult note Author [facility] Note Date/Time January 21, 2025 11:0 3am [facility] Medical Records Department [address] [place] [address] Pre-Anesthesia Evaluation 01/21/25 1057 MR#: [id number] Acct: [id number] Name: MARLO ADAMSON Rodrigo Rep #:[id number] : 1960 64 From: Isacc Cavanaugh MD PCP: Dr. Marlo Pollard DO Status:REG SDC Y Race: C Location: [place] [address] ASA Classification* ASA Classification ASA Classification: 3 Assessment & Plan Anesthesia* Anesthesia Assessment Anesthesia Assessment: Discussed sedation and/or anesthesia options, risks, benefits, and alternatives with patient/parents/legal guardian/POA. Questions invited. The patient/parents/legal guardian/POA seems to understand and agrees to proceedwith anesthesia plan. Reviewed the physical assessment, medical history, allergy history and patient home medications list prior to surgery/procedure/anesthetic and documented any changes. Performed airway and anesthesia risk assessments. Anesthesia Type Anesthesia Type: General History Source History Obtained from:: Patient and Chart Anesthesia Focused Assessment* Temperature: 98.8 F Pulse Rate: 62 Blood Pressure: 107/64 Respiratory Rate: 16 Pulse Ox: 97 Oxygen Delivery Method: Room Air Airway Assessment Mouth opens: >3 cm Mallampati Score: I Teeth Condition: Dentures (Patient has full upper and lower dentures. They are out.) Neck Range of motion (ROM): Full ROM Labs Anesthesia Preop lab: CBC WBC 7.6 K/mm3 (4.4-11.0) 11/02/24 07:12 11/02/24 RBC 3.99 M/mm3 (4.6-6.2) L 11/02/24 07:12 11/02/24 Hgb 12.4 g/dL (13.0-16.5) L 11/02/24 07:12 5 Hct 36.8 % (40-54) L 11/02/24 07:12 11/02/24 Plt Count 218 K/mm3 (150-450) 11/02/24 07:12 11/02/24 CHEMISTRY Potassium 3.8 mmol/L (3.3-5.1) 11/02/24 07:12 11/02/24 Sodium 134 mmol/L (133-145) 11/02/24 07:12 11/02/24 Magnesium 1.8 mg/dL (1.5-2.2) 10/31/24 02:12 10/31/24 Phosphorus 3.3 mg/dL (2.7-4.5) 10/31/24 02:12 10/31/24 BUN 41 mg/dL (4-19) H 11/02/24 07:12 11/02/24 Creatinine 5.94 mg/dL (0.70-1.20) H 11/02/24 07:12 Glucose 88 mg/dL (70-99) 11/02/24 07:12 11/02/24 POC Glucose 139 mg/dL (70-110) H 11/16/19 09:54 11/16/19 TSH 1.17 uIU/mL (0.358-3.74) 04/01/17 12:59 COAG Pre-Assessment Diagnosis/Proposed Procedure Planned Operative Procedure(s): Exam Under Anesthesia hemorrhoidectomy and possible fistulotomy Anesthesia History Anesthesia History - quality control coordinator: Anesthesia History - quality control coordinator Hx Hospitalization Yes: 11-19 infection 01/07/25 09:36 Any Problems With Anesthesia No 01/07/25 09:36 Cholinesterase deficiency No 01/07/25 09:36 You/Your Family Experience No 01/07/25 09:36 fever (hyperthermia) with Relationship Recent Exposure to Contagious No 01/21/25 10:25 Disease Does patient have nerve No 01/07/25 09:36 stimulator Patient instructed to have device shut off --Does patient have Pacemaker No 01/21/25 10:25 or ICD? When Was Last Pacemaker Check QUESTION #4 FULL TEXT: You/Your Family Experience fever (hyperthermia) with Anesthesia Last Oral Intake Last Oral intake: Last Oral Intake NPO since 19:00 01/21/25 10:25 Meds taken in AM with sips of Yes 01/21/25 10:25 water? Meds patient instructed to METOPROLOL 01/21/25 10:25 take am of surgery ASA OXYCODONE Any additional information?: Yes Meds taken in AM with sips of water?: Yes PONV PONV - quality control coordinator: PONV - quality control coordinator Female No 01/07/25 09:36 HX of Motion Sickness No 01/07/25 09:36 HX of N/V After Surgery No 01/07/25 09:36 Non-Smoker No 01/07/25 09:36 Duration of Surgery greater No 01/07/25 09:36 than 60 minutes Number of Risk Factors PONV Score Height & Weight Height & Weight: Anesthesia: Height & Weight Height 5 ft 10 in 01/21/25 10:25 Weight: 73 kg 01/21/25 10:25 Body Mass Index (BMI) 23.1 01/21/25 10:25 Respiratory Assessment Respiratory Assessment - quality control coordinator: Respiratory Tract Infection Hx - quality control coordinator Hx Respiratory Tract Infection No 01/07/25 09:36 STOP Sleep Apnea STOP Sleep Apnea - quality control coordinator: STOP Sleep Apnea - quality control coordinator Hx Hypertension Yes 01/07/25 09:36 Hx Sleep Apnea No 01/07/25 09:36 CPAP BIPAP Do you snore loudly (louder No 01/07/25 09:36 than talking or can be heard Do you often feel tired/ No 01/07/25 09:36 fatigued/ sleepy during daytime? Has anyone observed you stop No 01/07/25 09:36 breathing during sleep? STOP Results Negative 01/07/25 09:36 QUESTION #5 FULL TEXT : Do you snore loudly (louder than talking or can be heard through closed doors)? 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 Specify any problems Hx of Preganancy in last 3 N/A 01/07/25 09:36 Months Nurse Filling Out Transfusion JZOLLNADIA 01/07/25 09:36 & Questions: Date: 01/07/25 01/07/25 09:36 Time: 09:38 01/07/25 09:36 Patient unable to answer at this time (ie. confused, unrespo /Reproduction History /Reproductive History - quality control coordinator: /Reproductive Hx- quality control coordinator Hx Now No 01/07/25 09:36 Gestational Age (in weeks): EDC: Hx Hx Para Hx Section SAB No 01/07/25 09:36 Active Medications Active Medications: Current Medications Generic Name Dose Route Start Last Admin Trade Name Freq PRN Reason Stop Dose Admin Sodium Chloride 500 mls @ 0 mls/hr 01/21/25 10:15 01/21/25 10:35 IV 30 mls/hr .Q0M MARIJA Administration KVO PFSH Medical History (Updated 01/07/25 @ 10:25 by Destinee Del Valle) History of hiatal hernia Wears glasses History of steroid therapy Arthritis Low iron Back pain Syncope Difficulty swallowing Heartburn Smoker Shortness of breath on exertion Leg cramps History of pain when walking History of edema MRSA (methicillin resistant staph aureus) culture positive ESRD (end stage renal disease) ESRD on hemodialysis (~10/31/24) Anal fistula Hemorrhoids, internal, with bleeding Wears dentures Marijuana use Polycystic renal disease DVT (deep venous thrombosis) High cholesterol History of echocardiogram Cardiology follow-up encounter Hemorrhoids, internal Myocardial infarction HTN (hypertension) Osteoarthritis CAD (coronary artery disease) Home Medications ?Medication ?Instructions ?Recorded ?Last Taken ?Type aspirin 81 mg tablet,delayed 81 mg PO DAILY 05/29/21 0 01/21/25 History release cholecalciferol (vitamin D3) 125 125 mcg PO DAILY 09/1701/20/25 History mcg (5,000 unit) capsule metoprolol tartrate 25 mg tablet 25 mg PO BID 05/29/21 01/21/25 History pravastatin 40 mg tablet 40 mg PO QHS 05/29/21 History Hydrocortisone 2.5%/lidocaine 5% #30 ea 10/13/24 Unkno wn Rx suppository (cmpd) (hydrocortisone 2.5%/lidocaine 5% suppository (compound)) hydrocortisone 2.5 % topical cream 1 applic IA QD-BID PRN hemorrhoids 10/13/24 01/20/25 Rx with perineal applicator #30 grams (Proctozone-HC) oxycodone 10 mg tablet 10 mg PO TID PRN pain 01/21/25 04:00 History vitamin B complex-vitamin C-folic 1 tab PO QDAY 01/20/25 History acid 0.8 mg tablet (Renal-Svetlana) calcitriol 0.25 mcg capsule 0.25 mcg PO DAILY 10/31/24 01/20/25 History lidocaine-prilocaine 2.5 %-2.5 % 1 applic topical ALESHIA Y PRN SKIN 10/31/24 01/20/25 History topical cream ondansetron 4 mg disintegrating 4 mg PO Q4H PRN PRN na usea and 12/21/24 01/20/25 History tablet vomiting Allergy/AdvReac Type Severity Reaction Status Date / Time atorvastatin (From Lipitor) AdvReac MUSCLE ACHE Verified 01/07/25 09:18 Family History Father Cancer abdominal tumor--unsure type Brother Heart disease Sister Brain mass Mother Brain aneurysm Surgical History (Updated 01/07/25 @ 10:25 by Destinee Del Valle) Hx of colonoscopy with polypectomy History of arteriovenostomy for renal dialysis (~05/2021) Hx of left knee surgery History of esophagogastroduodenoscopy (EGD) Hx of cystoscopy History of cardiac catheterization History of coronary artery bypass graft History of heart artery stent Social History household members: none Smoking Status: Current every day smoker tobacco type: cigarettes quit status: considering quitting alcohol intake: former substance use type: does not use Review of Systems (Anesthesia) ROS Narrative System reviewed and no additional complaints, except as documented. 01/21/25 1103 <Electronically signed by Isacc torres MD> Date _ Isacc Cavanaugh MD Cosigner Signature: Date CC: ~ Signed [facility] Work Phone: 1(105) 276-290406-27-2025 History and physical note Author [facility] Note Date/Time January 21, 2025 11:0 0[facility] Medical Records Department [address] [place] [address] History & Physical Exam 01/21/25 1004 MR#: [id number] Acct: [id number] Name: MARLO ADAMSON Rep #:[id number] : 1960 64 From: Maria Ines Mckoy MD PCP: Dr. Marlo Pollard, DO Status:[place] [facility] [place] Location: [facility]07-1 History and Physical Date of Admission: 01/21/25 12/22/24 0708 MR#: [id number] Acct: [id number] Name: MARLO ADAMSON Rep #: [id number] : 1960 64 From: Maria Ines Mckoy MD PCP: Dr. Marlo Pollard, DO Status: REG [facility] [place] Location: [facility]12-1 HPI - General General Date of Service: 12/22/24 HPI Narrative MARLO FORCE, is a 64 M who presents for colonoscopy. Patient states he still been expressing about 4 times a day clearish material from the area of the anal fistula/abscess. Patient is never had colonoscopy. Patient denies any family history of colon cancer. Office visit 10/13/2024 HPI HPI: 64-year-old male presents due to hemorrhoid, anal fistula, colonoscopy. Patientdoes have past medical history for end-stage dialysis on home hemodialysis 4 days a week (Friday, Friday, , Friday) via right forearm fistula. Patient is interested in getting on the kidney transplant list and would need a colonoscopy and to deal with the hemorrhoids and possible fistula prior to that. Patient states about 2 years ago in July he was in bed for about 6 weeks anddid notice a larger swelling near his anus about the size of an egg yolk. Patient had some clearish drainage from that and also has noticed hemorrhoid more recently and it seems like that the area of the swelling does track towards the hemorrhoid as what he can feel. Patient does admit to draining the hemorrhoid as well as the area of swelling by sterilizing the needle and poking it. Patient states he typically gets clear liquid I will initially bloody and then clear liquid out of both of them thus he thinks they are connected. Patient hasnot had to poke the area of the fistula recently as he is able to do his expressed an open hole. Patient denies any pain with this. Patient states he has had a hemorrhoid since he was a kid. Patient also states he has severe polycystic disease of his kidneys which she had previously been told he had largest kidneys some doctor has never ever seen. He he states he did have a CT at [facility] sometime in the past we will try to get that record. Patient has never had a colonoscopy, denies any family history of colon cancer. [facility] Medical History (Updated 12/22/24 @ 07:[address] Maria Ines Mckoy MD) Wears glasses History of steroid therapy Arthritis Low iron Back pain Syncope Difficulty swallowing Heartburn Smoker Shortness of breath on exertion Leg cramps History of pain when walking History of edema MRSA (methicillin resistant staph aureus) culture positive ESRD (end stage renal disease) ESRD on hemodialysis (~10/31/24) Anal fistula Hemorrhoids, internal, with bleeding Wears dentures Marijuana use Polycystic renal disease DVT (deep venous thrombosis) High cholesterol History of echocardiogram Cardiology follow-up encounter Hypertension Hemorrhoids, internal Myocardial infarction HTN (hypertension) Osteoarthritis Anxiety and depression CAD (coronary artery disease) Home Medications ?Medication ?Instructions ?Recorded ?Last Taken ?Type aspirin 81 mg tablet,delayed 81 mg PO DAILY 05/29/21 12/17/24 History release cholecalciferol (vitamin D3) 125 125 mcg PO DAILY 05/29/21 12/21/24 Histo ry mcg (5,000 unit) capsule metoprolol tartrate 25 mg tablet 25 mg PO BID 05/29/21 12/22/24 History pravastatin 40 mg tablet 40 mg PO QHS 05/29/21 12/20/24 History Hydrocortisone 2.5%/lidocaine 5% #30 ea 10/13/24 Unknown Rx suppository (cmpd) (hydrocortisone 2.5%/lidocaine 5% suppository (compound)) hydrocortisone 2.5 % topical cream 1 applic IA QD-BID PRN hemorrhoids 10/1312/21/24 Rx with perineal applicator #30 grams (Proctozone-HC) oxycodone 10 mg tablet 10 mg PO TID PRN pain 10/13/24 12/21/24 History vitamin B complex-vitamin C-folic 1 tab PO QDAY 10/13/24 Unknown History acid 0.8 mg tablet (Renal-Svetlana) calcitriol 0.25 mcg capsule 0.25 mcg PO DAILY 10/31/24 12/21/24 Hist ory lidocaine-prilocaine 2.5 %-2.5 % 1 applic topical DAILY PRN SKIN 10/31/24 12/21/24 History topical cream ondansetron 4 mg disintegrating 4 mg PO Q4H PRN PRN nausea and 12/21/24 12/21/24 History tablet vomiting Allergy/AdvReac Type Severity Reaction Status Date / Time atorvastatin (From Lipitor) AdvReac MUSCLE ACHE Verified 12/22/24 06:31 Family History (Updated 10/31/24 @ 04:[address] Elidia Cunningham MD) Father Cancer abdominal tumor--unsure typeBrother Heart diseaseSister Brain massMother Brain aneurysm Surgical History (Updated 12/21/24 @ 09:47 by Destinee Del Valle) History of arteriovenostomy for renal dialysis (~05/2021) Hx of left knee surgery History of esophagogastroduodenoscopy (EGD) Hx of cystoscopy History of cardiac catheterization History of coronary artery bypass graft History of heart artery stent Social History (Updated 10/31/24 @ 04:[address] Elidia Cunningham MD) household members: none Smoking Status: Current every day smoker tobacco type: cigarettes quit status: considering quitting alcohol intake: former substance use type: does not use Past Medical/Surgical History Planned Operation Planned Operative Procedure(s): COLONOSCOPY Previous Hospitalizations/Surgeries HX Hospitalizations: Yes (10/2024 FLU/DIALYSIS ISSUES) Any Problems With Anesthesia: No You/Your Family Experience Fever (Hyperthermia) With Anes: No Cholinesterase deficiency: No Cardiovascular Hx Hypertension: Yes (FAIRLY CONTROLLED WITH MED) Respiratory Hx Sleep Apnea: No Hx Respiratory Tract Infection/Cold (presently): No Do You Snore Loudly (louder than talking or can be heard): No Do You Often Feel Tired/ Fatigued/ Sleepy Dring Daytime?: Yes Has Anyone Observed You Stop Breathing During Sleep?: No Result (for STOP score): Positive Smoking Status: Current every day smoker Neurological Does patient have nerve stimulator: No Reproduction : No Miscellaneous Recent Exposure to Contagious Disease: No Allergies atorvastatin (From Lipitor) Adverse Reaction (Verified 12/22/24 06:31) MUSCLE ACHE Discharge Is Pt Admitted From a Snf, or a Alf: No After D/C, Where Do you Plan to Go: Return Home Vital Signs Vital Signs Vital Signs: 12/22/2505:33 12/22/2505:33 Temperature 98.3 F Temperature Source Temporal Pulse Rate 70 Respiratory Rate 16 Respiratory Pattern Normal Blood Pressure 114/76 Blood Pressure Mean 88 Blood Pressure Source Monitor Blood Pressure Position Semi-Fowlers Blood Pressure Location Right Arm Pulse Ox 93 Oxygen Delivery Method Room Air Weight Weight: 163 lb 2.273 oz Body Mass Index (BMI) 23.3 Physical Exam Const alert, oriented x3 and no apparent distress HEENT normocephalic and head/scalp atraumatic Resp normal respiratory effort Cardio regular rate GI soft to palpation and non-tender; Negative for non-distended Palpation: Negative for guarding Extremity Extremity Narrative: Left forearm fistula good thrill Skin no rashes or lesions noted Neuro CN's II-XII intact bilaterally Psych mental status grossly normal Assessment & Plan Assessment/Plan (1) Screening for colon cancer: (2) Hemorrhoids, internal, with bleeding: (3) Anal fistula: Surgery Risks - Colonoscopy I discussed with the patient the risks of the procedure: Yes Risks Include but are not Limited To: Risks include but are not limited to: Bleeding, perforation requiring further surgery, inability to complete colonoscopy requiring barium enema. 12/22/24 0717 <Electronically signed by Maria Ines Mckoy MD> 01/21/25 1004 <Electronically signed by Maria Ines Mckoy MD> Cosigner Signature (if applicable): CC: Dr. Marlo Pollard DO; Dr. Maria Ines Mckoy MD~ Signed ADDENDUM by Dr. Maria Ines Mckoy MD on 01/21/25 at 1055 Addendum I have examined the patient the following changes are noted: Patient did not take his baby aspirin this morning however did not hold it for 5 days. Patient is aware he is little high risk for bleeding however we will plan to use the hand-held harmonic due to the large internal hemorrhoids. Patient is agreeable to holding his aspirin after the surgery. 01/21/25 1055<Electronically signed by Maria Ines Mckoy MD> Cosigner Signature (if applicable): cc: Dr. Marlo Pollard DO; Dr. Maria Ines Mckoy MD ~* Signed ADDENDUM by Dr. Maria Ines Mckoy MD on 01/21/25 at 1100 Addendum Plan for hemorrhoidectomy as well as fistulotomy discussed procedure. Includingrisk but not limited to infection, bleeding, postop pain, placement of seton. 01/21/25 1100<Electronically signed by Maria Ines Mckoy MD> Cosigner Signature (if applicable): cc: Dr. Marlo Pollard DO; Dr. Maria Ines Mckoy MD ~* Signed [facility] Work Phone: 1([phone]) 500-326306-27-2025 Consult note [facility] Medical Records Department [address] [place] [address] Pre-Anesthesia Evaluation 01/21/25 1057 MR#: [id number] Acct: [id number] Name: MARLO ADAMSON Rep #:[id number] : 1960 64 From: Isacc Cavanaugh MD PCP: Dr. Marlo Pollard DO Status:REG SDC Y Race: C Location: [facility]07- ASA Classification* ASA Classification ASA Classification: 3 Assessment & Plan Anesthesia* Anesthesia Assessment Anesthesia Assessment: Discussed sedation and/or anesthesia options, risks, benefits, and alternatives with patient/parents/legal guardian/POA. Questions invited. The patient/parents/legal guardian/POA seems to understand and agrees to proceedwith anesthesia plan. Reviewed the physical assessment, medical history, allergy history and patient home medications list prior to surgery/procedure/anesthetic and documented any changes. Performed airway and anesthesia risk assessments. Anesthesia Type Anesthesia Type: General History Source History Obtained from:: Patient and Chart Anesthesia Focused Assessment* Temperature: 98.8 F Pulse Rate: 62 Blood Pressure: 107/64 Respiratory Rate: 16 Pulse Ox: 97 Oxygen Delivery Method: Room Air Airway Assessment Mouth opens: >3 cm Mallampati Score: I Teeth Condition: Dentures (Patient has full upper and lower dentures. They are out.) Neck Range of motion (ROM): Full ROM Labs Anesthesia Preop lab: CBC WBC 7.6 K/mm3 (4.4-11.0) 11/02/24 07:12 11/02/24 RBC 3.99 M/mm3 (4.6-6.2) L 11/02/24 07:12 11/02/24 Hgb 12.4 g/dL (13.0-16.5) L 11/02/24 07:12 5 Hct 36.8 % (40-54) L 11/02/24 07:12 11/02/24 Plt Count 218 K/mm3 (150-450) 11/02/24 07:12 11/02/24 CHEMISTRY Potassium 3.8 mmol/L (3.3-5.1) 11/02/24 07:12 11/02/24 Sodium 134 mmol/L (133-145) 11/02/24 07:12 11/02/24 Magnesium 1.8 mg/dL (1.5-2.2) 10/31/24 02:12 10/31/24 Phosphorus 3.3 mg/dL (2.7-4.5) 10/31/24 02:12 10/31/24 BUN 41 mg/dL (4-19) H 11/02/24 07:12 11/02/24 Creatinine 5.94 mg/dL (0.70-1.20) H 11/02/24 07:12 Glucose 88 mg/dL (70-99) 11/02/24 07:12 11/02/24 POC Glucose 139 mg/dL (70-110) H 11/16/19 09:54 11/16/19 TSH 1.17 uIU/mL (0.358-3.74) 04/01/17 12:59 COAG Pre-Assessment Diagnosis/Proposed Procedure Planned Operative Procedure(s): Exam Under Anesthesia hemorrhoidectomy and possible fistulotomy Anesthesia History Anesthesia History - quality control coordinator: Anesthesia History - quality control coordinator Hx Hospitalization Yes: - infection 01/07/25 09:36 Any Problems With Anesthesia No 01/07/25 09:36 Cholinesterase deficiency No 01/07/25 09:36 You/Your Family Experience No 01/07/25 09:36 fever (hyperthermia) with Relationship Recent Exposure to Contagious No 01/21/25 10:25 Disease Does patient have nerve No 01/07/25 09:36 stimulator Patient instructed to have device shut off --Does patient have Pacemaker No 01/21/25 10:25 or ICD? When Was Last Pacemaker Check QUESTION #4 FULL TEXT: You/Your Family Experience fever (hyperthermia) with Anesthesia Last Oral Intake Last Oral intake: Last Oral Intake NPO since 19:00 01/21/25 10:25 Meds taken in AM with sips of Yes 01/21/25 10:25 water? Meds patient instructed to METOPROLOL 01/21/25 10:25 take am of surgery ASA OXYCODONE Any additional information?: Yes Meds taken in AM with sips of water?: Yes PONV PONV - quality control coordinator: PONV - quality control coordinator Female No 01/07/25 09:36 HX of Motion Sickness No 01/07/25 09:36 HX of N/V After Surgery No 01/07/25 09:36 Non-Smoker No 01/07/25 09:36 Duration of Surgery greater No 01/07/25 09:36 than 60 minutes Number of Risk Factors PONV Score Height & Weight Height & Weight: Anesthesia: Height & Weight Height 5 ft 10 in 01/21/25 10:25 Weight: 73 kg 01/21/25 10:25 Body Mass Index (BMI) 23.1 01/21/25 10:25 Respiratory Assessment Respiratory Assessment - quality control coordinator: Respiratory Tract Infection Hx - quality control coordinator Hx Respiratory Tract Infection No 01/07/25 09:36 STOP Sleep Apnea STOP Sleep Apnea - quality control coordinator: STOP Sleep Apnea - quality control coordinator Hx Hypertension Yes 01/07/25 09:36 Hx Sleep Apnea No 01/07/25 09:36 CPAP BIPAP Do you snore loudly (louder No 01/07/25 09:36 than talking or can be heard Do you often feel tired/ No 01/07/25 09:36 fatigued/ sleepy during daytime? Has anyone observed you stop No 01/07/25 09:36 breathing during sleep? STOP Results Negative 01/07/25 09:36 QUESTION #5 FULL TEXT : Do you snore loudly (louder than talking or can be heard through closeddoors)? 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 Specify any problems Hx of Preganancy in last 3 N/A 01/07/25 09:36 Months Nurse Filling Out Transfusion JZOLLNADIA 01/07/25 09:36 & Questions: Date: 01/07/25 01/07/25 09:36 Time: 09:38 01/07/25 09:36 Patient unable to answer at this time (ie. confused, unrespo /Reproduction History /Reproductive History - quality control coordinator: /Reproductive Hx- quality control coordinator Hx Now No 01/07/25 09:36 Gestational Age (in weeks): EDC: Hx Hx Para Hx Section SAB No 01/07/25 09:36 Active Medications Active Medications: Current Medications Generic Name Dose Route Start Last Admin Trade Name Freq PRN Reason Stop Dose Admin Sodium Chloride 500 mls @ 0 mls/hr 01/21/25 10:15 01/21/25 10:35 IV 30 mls/hr .Q0M MARIJA Administration O [facility] Medical History (Updated 01/07/25 @ 10:25 by Destinee Del Valle) History of hiatal hernia Wears glasses History of steroid therapy Arthritis Low iron Back pain Syncope Difficulty swallowing Heartburn Smoker Shortness of breath on exertion Leg cramps History of pain when walking History of edema MRSA (methicillin resistant staph aureus) culture positive ESRD (end stage renal disease) ESRD on hemodialysis (~10/31/24) Anal fistula Hemorrhoids, internal, with bleeding Wears dentures Marijuana use Polycystic renal disease DVT (deep venous thrombosis) High cholesterol History of echocardiogram Cardiology follow-up encounter Hemorrhoids, internal Myocardial infarction HTN (hypertension) Osteoarthritis CAD (coronary artery disease) Home Medications ?Medication ?Instructions ?Recorded ?Last Taken ?Type aspirin 81 mg tablet,delayed 81 mg PO DAILY 05/29/21 0 01/21/25 History release cholecalciferol (vitamin D3) 125 125 mcg PO DAILY 09/1701/20/25 History mcg (5,000 unit) capsule metoprolol tartrate 25 mg tablet 25 mg PO BID 05/29/21 01/21/25 History pravastatin 40 mg tablet 40 mg PO QHS 05/29/21 History Hydrocortisone 2.5%/lidocaine 5% #30 ea 10/13/24 Unkno wn Rx suppository (cmpd) (hydrocortisone 2.5%/lidocaine 5% suppository (compound)) hydrocortisone 2.5 % topical cream 1 applic IA QD-BID PRN hemorrhoids 10/13/24 01/20/25 Rx with perineal applicator #30 grams (Proctozone-HC) oxycodone 10 mg tablet 10 mg PO TID PRN pain 01/21/25 04:00 History vitamin B complex-vitamin C-folic 1 tab PO QDAY 01/20/25 History acid 0.8 mg tablet (Renal-Svetlana) calcitriol 0.25 mcg capsule 0.25 mcg PO DAILY 10/31/24 01/20/25 History lidocaine-prilocaine 2.5 %-2.5 % 1 applic topical ALESHIA Y PRN SKIN 10/31/24 01/20/25 History topical cream ondansetron 4 mg disintegrating 4 mg PO Q4H PRN PRN na usea and 12/21/24 01/20/25 History tablet vomiting Allergy/AdvReac Type Severity Reaction Status Date / Time atorvastatin (From Lipitor) AdvReac MUSCLE ACHE Verified 01/07/25 09:18 Family History Father Cancer abdominal tumor--unsure type Brother Heart disease Sister Brain mass Mother Brain aneurysm Surgical History (Updated 01/07/25 @ 10:25 by Destinee Del Valle) Hx of colonoscopy with polypectomy History of arteriovenostomy for renal dialysis (~05/2021) Hx of left knee surgery History of esophagogastroduodenoscopy (EGD) Hx of cystoscopy History of cardiac catheterization History of coronary artery bypass graft History of heart artery stent Social History household members: none Smoking Status: Current every day smoker tobacco type: cigarettes quit status: considering quitting alcohol intake: former substance use type: does not use Review of Systems (Anesthesia) ROS Narrative System reviewed and no additional complaints, except as documented. 01/21/25 1103 melissa CESPEDES> Date _ Isacc Roy Signature: Date CC: ~ Signed [facility]06-27-2025 History and physical note [facility] Medical Records Department [address] [place] [address] History & Physical Exam 01/21/25 1004 MR#: [id number] Acct: [id number] Name: MARLO ADAMSON Rep #:[id number] : 1960 64 From: Maria Ines Mckoy MD PCP: Dr. Marlo Pollard, DO Status:REG [facility] Location: [place] [address] History and Physical Date of Admission: 01/21/25 12/22/24 0708 MR#: [id number] Acct: [id number] Name: MARLO ADAMSON Rep #: [id number] : 1960 64 From: Maria Ines Mckoy MD PCP: Dr. Marlo Pollard, DO Status: REG [facility] Location: [place] [address] HPI - General General Date of Service: 12/22/24 HPI Narrative MARLO ADAMSON, is a 64 M who presents for colonoscopy. Patient states he still been expressing about 4times a day clearish material from the area of the anal fistula/abscess. Patient is never had colonoscopy. Patient denies any family history of colon cancer. Office visit 10/13/2024 HPI HPI: 64-year-old male presents due to hemorrhoid, anal fistula, colonoscopy. Patientdoes have past medical history for end-stage dialysis on home hemodialysis 4 days a week (Friday, Friday, , Friday) via right forearm fistula. Patient is interested in getting on the kidney transplant list andwould need a colonoscopy and to deal with the hemorrhoids and possible fistula prior to that. Patient states about 2 years ago in July he was in bed for about 6 weeks anddid notice a larger swelling near his anus about the size of an egg yolk. Patient had some clearish drainage from that and also has noticed hemorrhoid more recently and it seems like that the area of the swelling does track towards the hemorrhoid as what he can feel. Patient does admit to draining the hemorrhoid as well as the area of swelling by sterilizing the needle and poking it. Patient states he typically gets clear liquid I will initially bloody and then clear liquid out of both of them thus he thinks they are connected. Patient hasnot had to poke the area of the fistula recently as he is able to do his expressed an open hole. Patient denies any pain with this. Patient states he has had a hemorrhoid since he was a kid. Patient also states he has severe polycystic disease of his kidneys which she had previously been told he had largest kidneys some doctor has never ever seen. He he states he did have a CT at [facility] sometime in the past we will try to get that record. Patient has never had a colonoscopy, denies any family history of colon cancer. [facility] Medical History (Updated 12/22/24 @ 07:[address] Maria Ines Mckoy MD) Wears glasses History of steroid therapy Arthritis Low iron Back pain Syncope Difficulty swallowing Heartburn Smoker Shortness of breath on exertion Leg cramps History of pain when walking History of edema MRSA (methicillin resistant staph aureus) culture positive ESRD (end stage renal disease) ESRD on hemodialysis (~10/31/24) Anal fistula Hemorrhoids, internal, with bleeding Wears dentures Marijuana use Polycystic renal disease DVT (deep venous thrombosis) High cholesterol History of echocardiogram Cardiology follow-up encounter Hypertension Hemorrhoids, internal Myocardial infarction HTN (hypertension) Osteoarthritis Anxiety and depression CAD (coronary artery disease) Home Medications ?Medication ?Instructions ?Recorded ?Last Taken ?Type aspirin 81 mg tablet,delayed 81 mg PO DAILY 05/29/21 12/17/24 History release cholecalciferol (vitamin D3) 125 125 mcg PO DAILY 05/29/21 12/21/24 Histo ry mcg (5,000 unit) capsule metoprolol tartrate 25 mg tablet 25 mg PO BID 05/29/21 12/22/24 History pravastatin 40 mg tablet 40 mg PO QHS 05/29/21 12/20/24 History Hydrocortisone 2.5%/lidocaine 5% #30 ea 10/13/24 Unknown Rx suppository (cmpd) (hydrocortisone 2.5%/lidocaine 5% suppository (compound)) hydrocortisone 2.5 % topical cream 1 applic IA QD-BID PRN hemorrhoids 10/1312/21/24 Rx with perineal applicator #30 grams (Proctozone-HC) oxycodone 10 mg tablet 10 mg PO TID PRN pain 10/13/24 12/21/24 History vitamin B complex-vitamin C-folic 1 tab PO QDAY 10/13/24 Unknown History acid 0.8 mg tablet (Renal-Svetlana) calcitriol 0.25 mcg capsule 0.25 mcg PO DAILY 10/31/24 12/21/24 Hist ory lidocaine-prilocaine 2.5 %-2.5 % 1 applic topical DAILY PRN SKIN 10/31/24 12/21/24 History topical cream ondansetron 4 mg disintegrating 4 mg PO Q4H PRN PRN nausea and 12/21/24 12/21/24 History tablet vomiting Allergy/AdvReac Type Severity Reaction Status Date / Time atorvastatin (From Lipitor) AdvReac MUSCLE ACHE Verified 12/22/24 06:31 Family History (Updated 10/31/24 @ 04:[address] Elidia Cunningham MD) Father Cancer abdominal tumor--unsure typeBrother Heart diseaseSister Brain massMother Brain aneurysm Surgical History (Updated 12/21/24 @ 09:47 by Destinee Del Valle) History of arteriovenostomy for renal dialysis (~05/2021) Hx of left knee surgery History of esophagogastroduodenoscopy (EGD) Hx of cystoscopy History of cardiac catheterization History of coronary artery bypass graft History of heart artery stent Social History (Updated 10/31/24 @ 04:[address] Elidia Cunningham MD) household members: none Smoking Status: Current every day smoker tobacco type: cigarettes quit status: considering quitting alcohol intake: former substance use type: does not use Past Medical/Surgical History Planned Operation Planned Operative Procedure(s): COLONOSCOPY Previous Hospitalizations/Surgeries HX Hospitalizations: Yes (10/2024 FLU/DIALYSIS ISSUES) Any Problems With Anesthesia: No You/Your Family Experience Fever (Hyperthermia) With Anes: No Cholinesterase deficiency: No Cardiovascular Hx Hypertension: Yes (FAIRLY CONTROLLED WITH MED) Respiratory Hx Sleep Apnea: No Hx Respiratory Tract Infection/Cold (presently): No Do You Snore Loudly (louder than talking or can be heard): No Do You Often Feel Tired/ Fatigued/ Sleepy Dring Daytime?: Yes Has Anyone Observed You Stop Breathing During Sleep?: No Result (for STOP score): Positive Smoking Status: Current every day smoker Neurological Does patient have nerve stimulator: No Reproduction : No Miscellaneous Recent Exposure to Contagious Disease: No Allergies atorvastatin (From Lipitor) Adverse Reaction (Verified 12/22/24 06:31) MUSCLE ACHE Discharge Is Pt Admitted From a Snf, or a Alf: No After D/C, Where Do you Plan to Go: Return Home Vital Signs Vital Signs Vital Signs: 12/22/2505:33 12/22/2505:33 Temperature 98.3 F Temperature Source Temporal Pulse Rate 70 Respiratory Rate 16 Respiratory Pattern Normal Blood Pressure 114/76 Blood Pressure Mean 88 Blood Pressure Source Monitor Blood Pressure Position Semi-Fowlers Blood Pressure Location Right Arm Pulse Ox 93 Oxygen Delivery Method Room Air Weight Weight: 163 lb 2.273 oz Body Mass Index (BMI) 23.3 Physical Exam Const alert, oriented x3 and no apparent distress HEENT normocephalic and head/scalp atraumatic Resp normal respiratory effort Cardio regular rate GI soft to palpation and non-tender; Negative for non-distended Palpation: Negative for guarding Extremity Extremity Narrative: Left forearm fistula good thrill Skin no rashes or lesions noted Neuro CN's II-XII intact bilaterally Psych mental status grossly normal Assessment & Plan Assessment/Plan (1) Screening for colon cancer: (2) Hemorrhoids, internal, with bleeding: (3) Anal fistula: Surgery Risks - Colonoscopy I discussed with the patient the risks of the procedure: Yes Risks Include but are not Limited To: Risks include but are not limited to: Bleeding, perforation requiring further surgery, inability to complete colonoscopy requiring barium enema. 12/22/24 0717 01/21/25 1004 Cosigner Signature (if applicable): CC: Dr. Marlo Pollard DO; Dr. Maria Ines Mckoy MD~ Signed ADDENDUM by Dr. Maria Ines Mckoy MD on 01/21/25 at 1055 Addendum I have examined the patient the following changes are noted: Patient did not take his baby aspirin this morning however did not hold it for 5 days. Patient is aware he is little high risk for bleeding however we will plan to use the hand-held harmonic due to the large internal hemorrhoids. Patient is agreeable to holding his aspirin after the surgery. 01/21/25 1055 Cosigner Signature (if applicable): cc: Dr. Marlo Pollard DO; Dr. Maria Ines Mckoy MD ~* Signed ADDENDUM by Dr. Maria Ines Mckoy MD on 01/21/25 at 1100 Addendum Plan for hemorrhoidectomy as well as fistulotomy discussed procedure. Includingrisk but not limitedto infection, bleeding, postop pain, placement of seton. 01/21/25 1100 Cosigner Signature (if applicable): cc: Dr. Marlo Pollard DO; Dr. Maria Ines Mckoy MD ~* Signed [facility]06-27-2025 [facility] Medical Records Department [address] [place] [address] History Physical Exam 01/21/25 1004 MR#: [id number] Acct: [id number] Name: MARLO ADAMSON Rep #: [id number] : 1960 64 From: Maria Ines Mckoy MD PCP: Dr. Marlo Pollard, DO Status:REG [facility] Location: [place] [address] History and Physical Date of Admission: 01/21/25 12/22/24 0708 MR#: [id number] Acct: [id number] Name: MARLO ADAMSON Rep #: [id number] : 1960 64 From: Maria Ines Mckoy MD PCP: Dr. Marlo Pollard, DO Status: REG [facility] Location: [place] [address] HPI - General General Date of Service: 12/22/24 HPI Narrative MARLO ADAMSON, is a 64 M who presents for colonoscopy. Patient states he still been expressing about 4 times a day clearish material from the area of the anal fistula/abscess. Patient is never had colonoscopy. Patient denies any family history of colon cancer. Office visit 10/13/2024 HPI HPI: 64-year-old male presents due to hemorrhoid, anal fistula, colonoscopy. Patient does have past medical history for end-stage dialysis on home hemodialysis 4 days a week (Friday, Friday, , Friday) via right forearm fistula. Patient is interested in getting on the kidney transplant list and would need a colonoscopy and to deal with the hemorrhoids and possible fistula prior to that. Patient states about 2 years ago in July he was in bed for about 6 weeks and did notice a larger swelling near his anus about the size of an egg yolk. Patient had some clearish drainage from that and also has noticed hemorrhoid more recently and it seems like that the area of the swelling does track towards the hemorrhoid as what he can feel. Patient does admit to draining the hemorrhoid as well as the area of swelling by sterilizing the needle and poking it. Patient states he typically gets clear liquid I will initially bloody and then clear liquid out of both of them thus he thinks they are connected. Patient has not had to poke the area of the fistula recently as he is able to do his expressed an open hole. Patient denies any pain with this. Patient states he has had a hemorrhoid since he was a kid. Patient also states he has severe polycystic disease of his kidneys which she had previously been told he had largest kidneys some doctor has never ever seen. He he states he did have a CT at [facility] sometime in the past we will try to get that record. Patient has never had a colonoscopy, denies any family history of colon cancer. [facility] Medical History (Updated 12/22/24 @ 07:[address] Maria Ines Mckoy MD) Wears glasses History of steroid therapy Arthritis Low iron Back pain Syncope Difficulty swallowing Heartburn Smoker Shortness of breath on exertion Leg cramps History of pain when walking History of edema MRSA (methicillin resistant staph aureus) culture positive ESRD (end stage renal disease) ESRD on hemodialysis ( 10/31/24) Anal fistula Hemorrhoids, internal, with bleeding Wears dentures Marijuana use Polycystic renal disease DVT (deep venous thrombosis) High cholesterol History of echocardiogram Cardiology follow-up encounter Hypertension Hemorrhoids, internal Myocardial infarction HTN (hypertension) Osteoarthritis Anxiety and depression CAD (coronary artery disease) Home Medications ???Medication ???Instructions ???Recorded ???Last Taken ???Type aspirin 81 mg tablet,delayed 81 mg PO DAILY 05/29/21 12/17/24 History release cholecalciferol (vitamin D3) 125 125 mcg PO DAILY 05/29/21 12/21/24 History mcg (5,000 unit) capsule metoprolol tartrate 25 mg tablet 25 mg PO BID 05/29/21 12/22/24 History pravastatin 40 mg tablet 40 mg PO QHS 05/29/21 12/20/24 History Hydrocortisone 2.5%/lidocaine 5% #30 ea 10/13/24 Unknown Rx suppository (cmpd) (hydrocortisone 2.5%/lidocaine 5% suppository (compound)) hydrocortisone 2.5 % topical cream 1 applic IA QD-BID PRN hemorrhoids 10/13/24 Rx with perineal applicator #30 grams (Proctozone-HC) oxycodone 10 mg tablet 10 mg PO TID PRN pain 10/13/24 12/21/24 History vitamin B complex-vitamin C-folic 1 tab PO QDAY 10/13/24 Unknown History acid 0.8 mg tablet (Renal-Svetlana) calcitriol 0.25 mcg capsule 0.25 mcg PO DAILY 10/31/24 12/21/24 History lidocaine-prilocaine 2.5 %-2.5 % 1 applic topical DAILY PRN SKIN 10/31/24 12/21/24 History topical cream ondansetron 4 mg disintegrating 4 mg PO Q4H PRN PRN nausea and 12/21/24 12/21/24 H istory tablet vomiting Allergy/AdvReac Type Severity Reaction Status Date / Time atorvastatin (From Lipitor) AdvReac MUSCLE ACHE Verified 12/22/24 06:31 Family History (Updated 10/31/24 @ 04:[address] Elidia Cunningham MD) Father Cancer (more content not included)...[facility]05-28-2025 Consult note Author Yuly Champagne [facility] Note Date/Time December 22, 2024 7:25a [facility] Medical Records Department [address] [place] [address] Pre-Anesthesia Evaluation 12/22/24 0721 MR#: [id number] Acct: [id number] Name: MARLO ADAMSON Rep #:[id number] : 1960 64 From: Yuly Champagne PCP: Dr. Marlo Pollard, DO Status:REG [facility] Y Race: C Location: [place] [address] ASA Classification* ASA Classification ASA Classification: 3 Assessment & Plan Anesthesia* Anesthesia Assessment Anesthesia Assessment: Discussed sedation and/or anesthesia options, risks, benefits, and alternatives with patient/parents/legal guardian/POA. Questions invited. The patient/parents/legal guardian/POA seems to understand and agrees to proceedwith anesthesia plan. Reviewed the physical assessment, medical history, allergy history and patient home medications list prior to surgery/procedure/anesthetic and documented any changes. Performed airway and anesthesia risk assessments. Anesthesia Type Anesthesia Type: MAC History Source History Obtained from:: Patient and Chart Anesthesia Focused Assessment* Temperature: 98.3 F Pulse Rate: 70 Blood Pressure: 114/76 Respiratory Rate: 16 Pulse Ox: 93 Oxygen Delivery Method: Room Air Airway Assessment Mouth opens: >3 cm Mallampati Score: I Neck Range of motion (ROM): Full ROM Comment: Edentulous Focused Labs Anesthesia Preop lab: CBC WBC 7.6 K/mm3 (4.4-11.0) 11/02/24 07:12 11/02/24 RBC 3.99 M/mm3 (4.6-6.2) L 11/02/24 07:12 11/02/24 Hgb 12.4 g/dL (13.0-16.5) L 11/02/24 07:12 5 Hct 36.8 % (40-54) L 11/02/24 07:12 11/02/24 Plt Count 218 K/mm3 (150-450) 11/02/24 07:12 11/02/24 CHEMISTRY Potassium 3.8 mmol/L (3.3-5.1) 11/02/24 07:12 11/02/24 Sodium 134 mmol/L (133-145) 11/02/24 07:12 11/02/24 Magnesium 1.8 mg/dL (1.5-2.2) 10/31/24 02:12 10/31/24 Phosphorus 3.3 mg/dL (2.7-4.5) 10/31/24 02:12 10/31/24 BUN 41 mg/dL (4-19) H 11/02/24 07:12 11/02/24 Creatinine 5.94 mg/dL (0.70-1.20) H 11/02/24 07:12 Glucose 88 mg/dL (70-99) 11/02/24 07:12 11/02/24 POC Glucose 139 mg/dL (70-110) H 11/16/19 09:54 11/16/19 TSH 1.17 uIU/mL (0.358-3.74) 04/01/17 12:59 COAG Pre-Assessment Diagnosis/Proposed Procedure Planned Operative Procedure(s): COLONOSCOPY Anesthesia History Anesthesia History - quality 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 When Was Last Pacemaker Check QUESTION #4 FULL TEXT: You/Your Family Experience fever (hyperthermia) with Anesthesia Last Oral Intake Last Oral intake: Last Oral Intake NPO since 00:00 12/22/24 06:33 Meds taken in AM with sips of Yes 12/22/24 06:33 water? Meds patient instructed to METOPROLOL 12/22/24 06:33 take am of surgery PONV PONV - quality control coordinator: PONV - quality control coordinator Female No 12/21/24 09:34 HX of Motion Sickness No 12/21/24 09:34 HX of N/V After Surgery No 12/21/24 09:34 Non-Smoker No 12/21/24 09:34 Duration of Surgery greater No 12/21/24 09:34 than 60 minutes Number of Risk Factors PONV Score Height & Weight Height & Weight: Anesthesia: Height & Weight Height 5 ft 10 in 12/22/24 06:33 Weight: 74 kg 12/22/24 06:33 Body Mass Index (BMI) 23.3 12/22/24 06:33 Respiratory Assessment Respiratory Assessment - quality control coordinator: Respiratory Tract Infection Hx - quality control coordinator Hx Respiratory Tract Infection No 12/22/24 07:09 STOP Sleep Apnea STOP Sleep Apnea - quality control coordinator: STOP Sleep Apnea - quality control coordinator Hx Hypertension Yes: FAIRLY CONTROLLED WITH 12/22/24 07:09 MED Hx Sleep Apnea No 12/22/24 07:09 CPAP BIPAP Do you snore loudly (louder No 12/22/24 07:09 than talking or can be heard Do you often feel tired/ Yes 12/22/24 07:09 fatigued/ sleepy during daytime? Has anyone observed you stop No 12/22/24 07:09 breathing during sleep? STOP Results Positive 12/22/24 07:17 QUESTION #5 FULL TEXT : Do you snore loudly (louder than talking or can be heard through closed doors)? 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 Specify any problems Hx of Preganancy in last 3 N/A 12/21/24 09:34 Months Nurse Filling Out Transfusion DSCHRIBER 12/21/24 09:34 & Questions: Date: 12/21/24 12/21/24 09:34 Time: 09:37 12/21/24 09:34 Patient unable to answer at this time (ie. confused, unrespo /Reproduction History /Reproductive History - quality control coordinator: /Reproductive Hx- quality control coordinator Hx Now No 12/22/24 07:09 Gestational Age (in weeks): EDC: Hx Hx Para Hx Section SAB No 12/21/24 09:34 Active Medications Active Medications: Current Medications Generic Name Dose Route Start Last Admin Trade Name Freq PRN Reason Stop Dose Admin Sodium Chloride 500 mls @ 0 mls/hr 12/22/24 06:45 12/22/24 06:41 IV 15 mls/hr .Q0M MARIJA Administration KVO PFSH Medical History Wears glasses History of steroid therapy Arthritis Low iron Back pain Syncope Difficulty swallowing Heartburn Smoker Shortness of breath on exertion Leg cramps History of pain when walking History of edema MRSA (methicillin resistant staph aureus) culture positive ESRD (end stage renal disease) ESRD on hemodialysis (~10/31/24) Anal fistula Hemorrhoids, internal, with bleeding Wears dentures Marijuana use Polycystic renal disease DVT (deep venous thrombosis) High cholesterol History of echocardiogram Cardiology follow-up encounter Hypertension Hemorrhoids, internal Myocardial infarction HTN (hypertension) Osteoarthritis Anxiety and depression CAD (coronary artery disease) Home Medications ?Medication ?Instructions ?Recorded ?Last Taken ?Type aspirin 81 mg tablet,delayed 81 mg PO DAILY 05/29/21 0 12/17/24 History release cholecalciferol (vitamin D3) 125 125 mcg PO DAILY 09/1712/21/24 History mcg (5,000 unit) capsule metoprolol tartrate 25 mg tablet 25 mg PO BID 05/29/21 12/22/24 History pravastatin 40 mg tablet 40 mg PO QHS 05/29/21 History Hydrocortisone 2.5%/lidocaine 5% #30 ea 10/13/24 Unkno wn Rx suppository (cmpd) (hydrocortisone 2.5%/lidocaine 5% suppository (compound)) hydrocortisone 2.5 % topical cream 1 applic IA QD-BID PRN hemorrhoids 10/13/24 12/21/24 Rx with perineal applicator #30 grams (Proctozone-HC) oxycodone 10 mg tablet 10 mg PO TID PRN pain 12/21/24 History vitamin B complex-vitamin C-folic 1 tab PO QDAY Unknown History acid 0.8 mg tablet (Renal-Svetlana) calcitriol 0.25 mcg capsule 0.25 mcg PO DAILY 10/31/24 12/21/24 History lidocaine-prilocaine 2.5 %-2.5 % 1 applic topical ALESHIA Y PRN SKIN 10/31/24 12/21/24 History topical cream ondansetron 4 mg disintegrating 4 mg PO Q4H PRN PRN na usea and 12/21/24 12/21/24 History tablet vomiting Allergy/AdvReac Type Severity Reaction Status Date / Time atorvastatin (From Lipitor) AdvReac MUSCLE ACHE Verified 12/22/24 06:31 Family History Father Cancer abdominal tumor--unsure type Brother Heart disease Sister Brain mass Mother Brain aneurysm Surgical History History of arteriovenostomy for renal dialysis (~05/2021) Hx of left knee surgery History of esophagogastroduodenoscopy (EGD) Hx of cystoscopy History of cardiac catheterization History of coronary artery bypass graft History of heart artery stent Social History household members: none Smoking Status: Current every day smoker tobacco type: cigarettes quit status: considering quitting alcohol intake: former substance use type: does not use Review of Systems (Anesthesia) ROS Narrative System reviewed and no additional complaints, except as documented. 12/22/24724 <Electronically signed by Yuly Champagne > Date _ Yuly Champagne Cosigner Signature: Date CC: ~ Signed [facility] Work Phone: [phone] 672-800305-28-2025 History and physical note Author Maria Ines Mckoy [facility] Note Date/Time December 22, 2024 7:17a m [facility] Medical Records Department [address] [place] [id number] History & Physical Exam 12/22/24707 MR#: [id number] Acct: [id number] Name: MARLO ADAMSON Rep #:[id number] : 1960 64 From: Maria Ines Mckoy MD PCP: Dr. Marlo Pollard, DO Status:[facility] Location: [place] [address] HPI - General General Date of Service: 12/22/24 HPI Narrative MARLO ADAMSON, is a 64 M who presents for colonoscopy. Patient states he still been expressing about 4 times a day clearish material from the area of the anal fistula/abscess. Patient is never had colonoscopy. Patient denies any family history of colon cancer. Office visit 10/13/2024 HPI HPI: 64-year-old male presents due to hemorrhoid, anal fistula, colonoscopy. Patientdoes have past medical history for end-stage dialysis on home hemodialysis 4 days a week (Friday, Friday, , Friday) via right forearm fistula. Patient is interested in getting on the kidney transplant list and would need a colonoscopy and to deal with the hemorrhoids and possible fistula prior to that. Patient states about 2 years ago in July he was in bed for about 6 weeks anddid notice a larger swelling near his anus about the size of an egg yolk. Patient had some clearish drainage from that and also has noticed hemorrhoid more recently and it seems like that the area of the swelling does track towardsthe hemorrhoid as what he can feel. Patient does admit to draining the hemorrhoid as well as the area of swelling by sterilizing the needle and poking it. Patient states he typically gets clear liquid I will initially bloody and then clear liquid out of both of them thus he thinks they are connected. Patient has not had to poke the area of the fistula recently as he is able to dohis expressed an open hole. Patient denies any pain with this. Patient states he has had a hemorrhoid since he was a kid. Patient also states he has severe polycystic disease of his kidneys which she had previously been told he had largest kidneys some doctor has never ever seen. He he states he did have a CT at [facility] sometime in the past we will try to get that record. Patient has never had a colonoscopy, denies any family history of colon cancer. [facility] Medical History (Updated 12/22/24 @ 07:[address] Maria Ines Mckoy MD) Wears glasses History of steroid therapy Arthritis Low iron Back pain Syncope Difficulty swallowing Heartburn Smoker Shortness of breath on exertion Leg cramps History of pain when walking History of edema MRSA (methicillin resistant staph aureus) culture positive ESRD (end stage renal disease) ESRD on hemodialysis (~10/31/24) Anal fistula Hemorrhoids, internal, with bleeding Wears dentures Marijuana use Polycystic renal disease DVT (deep venous thrombosis) High cholesterol History of echocardiogram Cardiology follow-up encounter Hypertension Hemorrhoids, internal Myocardial infarction HTN (hypertension) Osteoarthritis Anxiety and depression CAD (coronary artery disease) Home Medications ?Medication ?Instructions ?Recorded ?Last Taken ?Type aspirin 81 mg tablet,delayed 81 mg PO DAILY 05/29/21 0 12/17/24 History release cholecalciferol (vitamin D3) 125 125 mcg PO DAILY 09/1712/21/24 History mcg (5,000 unit) capsule metoprolol tartrate 25 mg tablet 25 mg PO BID 05/29/21 12/22/24 History pravastatin 40 mg tablet 40 mg PO QHS 05/29/21 History Hydrocortisone 2.5%/lidocaine 5% #30 ea 10/13/24 Unkno wn Rx suppository (cmpd) (hydrocortisone 2.5%/lidocaine 5% suppository (compound)) hydrocortisone 2.5 % topical cream 1 applic IA QD-BID PRN hemorrhoids 10/13/24 12/21/24 Rx with perineal applicator #30 grams (Proctozone-HC) oxycodone 10 mg tablet 10 mg PO TID PRN pain 12/21/24 History vitamin B complex-vitamin C-folic 1 tab PO QDAY Unknown History acid 0.8 mg tablet (Renal-Svetlana) calcitriol 0.25 mcg capsule 0.25 mcg PO DAILY 10/31/24 12/21/24 History lidocaine-prilocaine 2.5 %-2.5 % 1 applic topical ALESHIA Y PRN SKIN 10/31/24 History topical cream ondansetron 4 mg disintegrating 4 mg PO Q4H PRN PRN na usea and 12/21/24 12/21/24 History tablet vomiting Allergy/AdvReac Type Severity Reaction Status Date / Time atorvastatin (From Lipitor) AdvReac MUSCLE ACHE Verified 12/22/24 06:31 Family History (Updated 10/31/24 @ 04:[address] Elidia Cunningham MD) Father Cancer abdominal tumor--unsure type Brother Heart disease Sister Brain mass Mother Brain aneurysm Surgical History (Updated 12/21/24 @ 09:47 by Destinee Del Valle) History of arteriovenostomy for renal dialysis (~05/2021) Hx of left knee surgery History of esophagogastroduodenoscopy (EGD) Hx of cystoscopy History of cardiac catheterization History of coronary artery bypass graft History of heart artery stent Social History (Updated 10/31/24 @ 04:[address] Elidia Cunningham MD) household members: none Smoking Status: Current every day smoker tobacco type: cigarettes quit status: considering quitting alcohol intake: former substance use type: does not use Past Medical/Surgical History Planned Operation Planned Operative Procedure(s): COLONOSCOPY Previous Hospitalizations/Surgeries HX Hospitalizations: Yes (10/2024 FLU/DIALYSIS ISSUES) Any Problems With Anesthesia: No You/Your Family Experience Fever (Hyperthermia) With Anes: No Cholinesterase deficiency: No Cardiovascular Hx Hypertension: Yes (FAIRLY CONTROLLED WITH MED) Respiratory Hx Sleep Apnea: No Hx Respiratory Tract Infection/Cold (presently): No Do You Snore Loudly (louder than talking or can be heard): No Do You Often Feel Tired/ Fatigued/ Sleepy Dring Daytime?: Yes Has Anyone Observed You Stop Breathing During Sleep?: No Result (for STOP score): Positive Smoking Status: Current every day smoker Neurological Does patient have nerve stimulator: No Reproduction : No Miscellaneous Recent Exposure to Contagious Disease: No Allergies atorvastatin (From Lipitor) Adverse Reaction (Verified 12/22/24 06:31) MUSCLE ACHE Discharge Is Pt Admitted From a Snf, or a Alf: No After D/C, Where Do you Plan to Go: Return Home Vital Signs Vital Signs Vital Signs: 12/22/24 06:33 12/22/24 06:33 Temperature 98.3 F Temperature Source Temporal Pulse Rate 70 Respiratory Rate 16 Respiratory Pattern Normal Blood Pressure 114/76 Blood Pressure Mean 88 Blood Pressure Source Monitor Blood Pressure Position Semi-Fowlers Blood Pressure Location Right Arm Pulse Ox 93 Oxygen Delivery Method Room Air Weight Weight: 163 lb 2.273 oz Body Mass Index (BMI) 23.3 Physical Exam Const alert, oriented x3 and no apparent distress HEENT normocephalic and head/scalp atraumatic Resp normal respiratory effort Cardio regular rate GI soft to palpation and non-tender; Negative for non-distended Palpation: Negative for guarding Extremity Extremity Narrative: Left forearm fistula good thrill Skin no rashes or lesions noted Neuro CN's II-XII intact bilaterally Psych mental status grossly normal Assessment & Plan Assessment/Plan (1) Screening for colon cancer: (2) Hemorrhoids, internal, with bleeding: (3) Anal fistula: Surgery Risks - Colonoscopy I discussed with the patient the risks of the procedure: Yes Risks Include but are not Limited To: Risks include but are not limited to: Bleeding, perforation requiring further surgery, inability to complete colonoscopy requiring barium enema. 12/22/2417 <Electronically signed by Maria Ines Mckoy MD> Cosigner Signature (if applicable): CC: Dr. Marlo Pollard DO; Dr. Maria Ines Mckoy MD~ Signed [facility] Work Phone: [phone] 630-696505-28-2025 Procedure note [facility] Medical Records Department [address] [place] [address] Colonoscopy Report MR#: [id number] Acct: [id number] Name: MARLO ADAMSON Rep #:[id number] : 1960 64 From: Maria Ines Mckoy MD PCP: Dr. Marlo Pollard, DO Status:REG SD Patient Name: Marlo Adamson Procedure Date: 12/22/2024 8:03 AM Date of : 1960 Age: 64 Procedure: Colonoscopy Indications: Screening for colorectal malignant neoplasm Providers: Maria Ines Mckoy MD Medicines: Monitored Anesthesia Care Patient Profile: This is a 64 year old male. Last Colonoscopy: none. The patient's first colonoscopy is today. Complications: No immediate complications. Procedure: Pre-Anesthesia Assessment: - Prior to the procedure, a History and Physical was performed, and patient medications and allergies were reviewed. The patient's tolerance of previous anesthesia was also reviewed. The risks and benefits of the procedure and the sedation options and risks were discussed with the patient. All questions were answered, and informed consent was obtained. Prior Anticoagulants: The patient has taken no anticoagulant or antiplatelet agents. ASA Grade Assessment: Per anesthesia. After reviewing the risks and benefits, the patient was deemed in satisfactory condition to undergo the procedure. After I obtained informed consent, the scope was passed under direct vision. Throughout the procedure, the patient's blood pressure, pulse, and oxygen saturations were monitored continuously. The Colonoscope was introduced through the anus and advanced to the cecum, identified by the appendiceal orifice, ileocecal valve and palpation. The colonoscopy was performed without difficulty. The patient tolerated the procedure well. The quality of the bowel preparation was good. Scope In: 8:11:49 AM Scope Withdrawal Time 0 hours 10 minutes 53 seconds Scope Out: 8:28:06 AM Total Procedure Duration Time 0 hours 16 minutes 17 seconds Findings: Non-bleeding external and internal hemorrhoids were found. The hemorrhoids were small and Grade III (internal hemorrhoids that prolapse but require manual reduction). A less than 5 mm polyp was found in the ascending colon. The polyp was semi-pedunculated. The polyp was removed with a hot snare. Resection and retrieval were complete. Multiple small-mouthed diverticula were found in the sigmoid colon and descending colon. At about 10:00 on the left side???perianal- indurated tissue with a small opening no active drainage, no obvious tract seen inside the rectum or felt on exam Impression: - Non-bleeding external and internal hemorrhoids. - One less than 5 mm polyp in the ascending colon, removed with a hot snare. Resected and retrieved. - Diverticulosis in the sigmoid colon and in the descending colon. - Likely anal fistula exterior opening at about 10:00 left side with some induration no erythema, unable to appreciate the internal opening Recommendation: - Discharge patient to home. - High fiber diet. - Continue present medications. - Await pathology results. - Repeat colonoscopy in 5 years for surveillance based on pathology results. Procedure Code(s): --- Professional --- 34366, PT, Colonoscopy, flexible; with removal of tumor(s), polyp(s), or other lesion(s) by snare technique Diagnosis Code(s): --- Professional --- Z12.11, Encounter for screening for malignant neoplasm of colon K64.2, Third degree hemorrhoids D12.2, Benign neoplasm of ascending colon K57.30, Diverticulosis of large intestine without perforation or abscess without bleeding CPT copyright 2021 [employer]. All rights reserved. The codes documented in this report are preliminary and upon block layer review may be revised to meet current compliance requirements. MD Maria Ines Patiño MD 12/22/2024 8:44:55 AM This report has been signed electronically. Number of Addenda: 0 Note Initiated On: 12/22/2024 8:03 AM 12/22/2444 Date _ Maria Ines Mckoy MD Cosigner Signature: Date (if indicated) CC: Dr. Marlo Pollard, DO; Dr. Maria Ines Mckoy MD ~ Date Dictated: 12/22/24 08 Date Transcribed: Machine Baster: TR Signed [facility]05-28-2025 Procedure note [facility] Medical Records Department [address] [place] [address] Operative Report - CC Letter MR#: [id number] Acct: [id number] Name: MARLO ADAMSON Rep #:[id number] : 1960 64 From: Maria Ines Mckoy MD PCP: Dr. Marlo Pollard DO Status:REG [facility] [place] 12/22/2024 Marlo Latrice [address] [place] [address] [place] [address] Re : Colonoscopy procedure for Marlo Adamson Dear Dr. Pollard This procedure was performed on Sunday, December 22, 2024. My impressions and recommendations are as follows: Impressions : - Non-bleeding external and internal hemorrhoids. - One less than 5 mm polyp in the ascending colon, removed with a hot snare. Resected and retrieved. - Diverticulosis in the sigmoid colon and in the descending colon. - Likely anal fistula exterior opening at about 10:00 left side with some induration no erythema, unable to appreciate the internal opening Recommendations : - Discharge patient to home. - High fiber diet. - Continue present medications. - Await pathology results. - Repeat colonoscopy in 5 years for surveillance based on pathology results. My findings are described in the full procedure note, which is enclosed. If I can be of further assistance, please feel free to contact me at Doctor phone number(s): , Work: . Sincerely, MD Maria Ines Patiño MD 12/22/2024 8:44:55 AM This report has been signed electronically. 12/22/24844 Date _ Maria Ines Roy Signature: Date (if indicated) CC: Dr. Marlo Pollard DO; Dr. Maria Ines Mckoy MD ~ Date Dictated: 12/22/24 0803 Date Transcribed: Machine Baster: TR Signed [facility]05-28-2025 Consult note [facility] Medical Records Department [address] [place] [address] Anesthesia Postop Eval I 12/22/24 0842 MR#: [id number] Acct: [id number] Name: MARLO ADAMSON Rep #:[id number] : 1960 64 From: Joseph Hu PCP: Dr. Marlo Pollard, DO Status:REG SDC Y Race: C Location: [place] [address] Anesthesia: Postop Eval I Current Vital Signs Temperature: 97.8 F Pulse Rate: 63 Blood Pressure: 101/68 Respiratory Rate: 16 Pulse Ox: 100 Oxygen Delivery Method: Room Air Assessment Airway patent: Yes Spontaneous unlabored respirations: Yes Mental status: Asleep nausea: No Vomiting: No Anesthesia Complication: No Fluid Hydration Crystalloid volume administer (ml): 200 Total IV fluid infused: 200 Progress Note Anesthesia document: Postop Eval 1 completed: Yes 12/22/24 0843 > Date _ Joseph Roy Signature: Date CC: ~ Signed [facility]05-28-2025 Consult note [facility] Medical Records Department [address] [place] [address] Pre-Anesthesia Evaluation 12/22/24 0721 MR#: [id number] Acct: [id number] Name: MARLO ADAMSON Rep #:[id number] : 1960 64 From: Yuly Champagne PCP: Dr. Marlo Pollard, DO Status:REG SD Y Race: C Location: [place] [address] ASA Classification* ASA Classification ASA Classification: 3 Assessment & Plan Anesthesia* Anesthesia Assessment Anesthesia Assessment: Discussed sedation and/or anesthesia options, risks, benefits, and alternatives with patient/parents/legal guardian/POA. Questions invited. The patient/parents/legal guardian/POA seems to understand and agrees to proceedwith anesthesia plan. Reviewed the physical assessment, medical history, allergy history and patient home medications list prior to surgery/procedure/anesthetic and documented any changes. Performed airway and anesthesia risk assessments. Anesthesia Type Anesthesia Type: MAC History Source History Obtained from:: Patient and Chart Anesthesia Focused Assessment* Temperature: 98.3 F Pulse Rate: 70 Blood Pressure: 114/76 Respiratory Rate: 16 Pulse Ox: 93 Oxygen Delivery Method: Room Air Airway Assessment Mouth opens: >3 cm Mallampati Score: I Neck Range of motion (ROM): Full ROM Comment: Edentulous Focused Labs Anesthesia Preop lab: CBC WBC 7.6 K/mm3 (4.4-11.0) 11/02/24 07:12 11/02/24 RBC 3.99 M/mm3 (4.6-6.2) L 11/02/24 07:12 11/02/24 Hgb 12.4 g/dL (13.0-16.5) L 11/02/24 07:12 5 Hct 36.8 % (40-54) L 11/02/24 07:12 11/02/24 Plt Count 218 K/mm3 (150-450) 11/02/24 07:12 11/02/24 CHEMISTRY Potassium 3.8 mmol/L (3.3-5.1) 11/02/24 07:12 11/02/24 Sodium 134 mmol/L (133-145) 11/02/24 07:12 11/02/24 Magnesium 1.8 mg/dL (1.5-2.2) 10/31/24 02:12 10/31/24 Phosphorus 3.3 mg/dL (2.7-4.5) 10/31/24 02:12 10/31/24 BUN 41 mg/dL (4-19) H 11/02/24 07:12 11/02/24 Creatinine 5.94 mg/dL (0.70-1.20) H 11/02/24 07:12 Glucose 88 mg/dL (70-99) 11/02/24 07:12 11/02/24 POC Glucose 139 mg/dL (70-110) H 11/16/19 09:54 11/16/19 TSH 1.17 uIU/mL (0.358-3.74) 04/01/17 12:59 COAG Pre-Assessment Diagnosis/Proposed Procedure Planned Operative Procedure(s): COLONOSCOPY Anesthesia History Anesthesia History - quality 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 When Was Last Pacemaker Check QUESTION #4 FULL TEXT: You/Your Family Experience fever (hyperthermia) with Anesthesia Last Oral Intake Last Oral intake: Last Oral Intake NPO since 00:00 12/22/24 06:33 Meds taken in AM with sips of Yes 12/22/24 06:33 water? Meds patient instructed to METOPROLOL 12/22/24 06:33 take am of surgery PONV PONV - quality control coordinator: PONV - quality control coordinator Female No 12/21/24 09:34 HX of Motion Sickness No 12/21/24 09:34 HX of N/V After Surgery No 12/21/24 09:34 Non-Smoker No 12/21/24 09:34 Duration of Surgery greater No 12/21/24 09:34 than 60 minutes Number of Risk Factors PONV Score Height & Weight Height & Weight: Anesthesia: Height & Weight Height 5 ft 10 in 12/22/24 06:33 Weight: 74 kg 12/22/24 06:33 Body Mass Index (BMI) 23.3 12/22/24 06:33 Respiratory Assessment Respiratory Assessment - quality control coordinator: Respiratory Tract Infection Hx - quality control coordinator Hx Respiratory Tract Infection No 12/22/24 07:09 STOP Sleep Apnea STOP Sleep Apnea - quality control coordinator: STOP Sleep Apnea - quality control coordinator Hx Hypertension Yes: FAIRLY CONTROLLED WITH 12/22/24 07:09 MED Hx Sleep Apnea No 12/22/24 07:09 CPAP BIPAP Do you snore loudly (louder No 12/22/24 07:09 than talking or can be heard Do you often feel tired/ Yes 12/22/24 07:09 fatigued/ sleepy during daytime? Has anyone observed you stop No 12/22/24 07:09 breathing during sleep? STOP Results Positive 12/22/24 07:17 QUESTION #5 FULL TEXT : Do you snore loudly (louder than talking or can be heard through closeddoors)? 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 Specify any problems Hx of Preganancy in last 3 N/A 12/21/24 09:34 Months Nurse Filling Out Transfusion DSCHRIBER 12/21/24 09:34 & Questions: Date: 12/21/24 12/21/24 09:34 Time: 09:37 12/21/24 09:34 Patient unable to answer at this time (ie. confused, unrespo /Reproduction History /Reproductive History - quality control coordinator: /Reproductive Hx- quality control coordinator Hx Now No 12/22/24 07:09 Gestational Age (in weeks): EDC: Hx Hx Para Hx Section SAB No 12/21/24 09:34 Active Medications Active Medications: Current Medications Generic Name Dose Route Start Last Admin Trade Name Freq PRN Reason Stop Dose Admin Sodium Chloride 500 mls @ 0 mls/hr 12/22/24 06:45 12/22/24 06:41 IV 15 mls/hr .Q0M MARIJA Administration KVO PFSH Medical History Wears glasses History of steroid therapy Arthritis Low iron Back pain Syncope Difficulty swallowing Heartburn Smoker Shortness of breath on exertion Leg cramps History of pain when walking History of edema MRSA (methicillin resistant staph aureus) culture positive ESRD (end stage renal disease) ESRD on hemodialysis (~10/31/24) Anal fistula Hemorrhoids, internal, with bleeding Wears dentures Marijuana use Polycystic renal disease DVT (deep venous thrombosis) High cholesterol History of echocardiogram Cardiology follow-up encounter Hypertension Hemorrhoids, internal Myocardial infarction HTN (hypertension) Osteoarthritis Anxiety and depression CAD (coronary artery disease) Home Medications ?Medication ?Instructions ?Recorded ?Last Taken ?Type aspirin 81 mg tablet,delayed 81 mg PO DAILY 05/29/21 0 12/17/24 History release cholecalciferol (vitamin D3) 125 125 mcg PO DAILY 09/1712/21/24 History mcg (5,000 unit) capsule metoprolol tartrate 25 mg tablet 25 mg PO BID 05/29/21 12/22/24 History pravastatin 40 mg tablet 40 mg PO QHS 05/29/21 History Hydrocortisone 2.5%/lidocaine 5% #30 ea 10/13/24 Unkno wn Rx suppository (cmpd) (hydrocortisone 2.5%/lidocaine 5% suppository (compound)) hydrocortisone 2.5 % topical cream 1 applic IA QD-BID PRN hemorrhoids 10/13/24 12/21/24 Rx with perineal applicator #30 grams (Proctozone-HC) oxycodone 10 mg tablet 10 mg PO TID PRN pain 12/21/24 History vitamin B complex-vitamin C-folic 1 tab PO QDAY Unknown History acid 0.8 mg tablet (Renal-Svetlana) calcitriol 0.25 mcg capsule 0.25 mcg PO DAILY 10/31/24 12/21/24 History lidocaine-prilocaine 2.5 %-2.5 % 1 applic topical ALESHIA Y PRN SKIN 10/31/24 12/21/24 History topical cream ondansetron 4 mg disintegrating 4 mg PO Q4H PRN PRN na usea and 12/21/24 12/21/24 History tablet vomiting Allergy/AdvReac Type Severity Reaction Status Date / Time atorvastatin (From Lipitor) AdvReac MUSCLE ACHE Verified 12/22/24 06:31 Family History Father Cancer abdominal tumor--unsure type Brother Heart disease Sister Brain mass Mother Brain aneurysm Surgical History History of arteriovenostomy for renal dialysis (~05/2021) Hx of left knee surgery History of esophagogastroduodenoscopy (EGD) Hx of cystoscopy History of cardiac catheterization History of coronary artery bypass graft History of heart artery stent Social History household members: none Smoking Status: Current every day smoker tobacco type: cigarettes quit status: considering quitting alcohol intake: former substance use type: does not use Review of Systems (Anesthesia) ROS Narrative System reviewed and no additional complaints, except as documented. 12/22/24724 > Date _ Yuly Roy Signature: Date CC: ~ Signed [facility]05-28-2025 History and physical note [facility] Medical Records Department [address] [place] [address] History & Physical Exam 12/22/24707 MR#: [id number] Acct: [id number] Name: MARLO ADAMSON Rep #:[id number] : 1960 64 From: Maria Ines Mckoy MD PCP: Dr. Marlo Pollard, DO Status:[facility] Location: [address] - General General Date of Service: 12/22/24 HPI Narrative MARLO ADAMSON, is a 64 M who presents for colonoscopy. Patient states he still been expressing about 4times a day clearish material from the area of the anal fistula/abscess. Patient is never had colonoscopy. Patient denies any family history of colon cancer. Office visit 10/13/2024 HPI HPI: 64-year-old male presents due to hemorrhoid, anal fistula, colonoscopy. Patientdoes have past medical history for end-stage dialysis on home hemodialysis 4 days a week (Friday, Friday, , Friday) via right forearm fistula. Patient is interested in getting on the kidney transplant list andwould need a colonoscopy and to deal with the hemorrhoids and possible fistula prior to that. Patient states about 2 years ago in July he was in bed for about 6 weeks anddid notice a larger swelling near his anus about the size of an egg yolk. Patient had some clearish drainage from that and also has noticed hemorrhoid more recently and it seems like that the area of the swelling does track towardsthe hemorrhoid as what he can feel. Patient does admit to draining the hemorrhoid as well as the area of swelling by sterilizing the needle and poking it. Patient states he typically gets clear liquid I will initially bloody and then clear liquid out of both of them thus he thinks they are connected. Patient has not had to poke the area of the fistula recently as he is able to dohis expressedan open hole. Patient denies any pain with this. Patient states he has had a hemorrhoid since he was a kid. Patient also states he has severe polycystic disease of his kidneys which she had previously been told he had largest kidneys some doctor has never ever seen. He [facility] will try to get that record. Patient has never had a colonoscopy, denies any family history of colon cancer. [facility] Medical History (Updated 12/22/24 @ 07:[address] Maria Ines Mckoy MD) Wears glasses History of steroid therapy Arthritis Low iron Back pain Syncope Difficulty swallowing Heartburn Smoker Shortness of breath on exertion Leg cramps History of pain when walking History of edema MRSA (methicillin resistant staph aureus) culture positive ESRD (end stage renal disease) ESRD on hemodialysis (~10/31/24) Anal fistula Hemorrhoids, internal, with bleeding Wears dentures Marijuana use Polycystic renal disease DVT (deep venous thrombosis) High cholesterol History of echocardiogram Cardiology follow-up encounter Hypertension Hemorrhoids, internal Myocardial infarction HTN (hypertension) Osteoarthritis Anxiety and depression CAD (coronary artery disease) Home Medications ?Medication ?Instructions ?Recorded ?Last Taken ?Type aspirin 81 mg tablet,delayed 81 mg PO DAILY 05/29/21 12/17/24 History release cholecalciferol (vitamin D3) 125 125 mcg PO DAILY 09/1712/21/24 History mcg (5,000 unit) capsule metoprolol tartrate 25 mg tablet 25 mg PO BID 05/29/21 12/22/24 History pravastatin 40 mg tablet 40 mg PO QHS 05/29/21 History Hydrocortisone 2.5%/lidocaine 5% #30 ea 10/13/24 Unkno wn Rx suppository (cmpd) (hydrocortisone 2.5%/lidocaine 5% suppository (compound)) hydrocortisone 2.5 % topical cream 1 applic IA QD-BID PRN hemorrhoids 10/13/24 12/21/24 Rx with perineal applicator #30 grams (Proctozone-HC) oxycodone 10 mg tablet 10 mg PO TID PRN pain 12/21/24 History vitamin B complex-vitamin C-folic 1 tab PO QDAY Unknown History acid 0.8 mg tablet (Renal-Svetlana) calcitriol 0.25 mcg capsule 0.25 mcg PO DAILY 10/31/24 12/21/24 History lidocaine-prilocaine 2.5 %-2.5 % 1 applic topical ALESHIA Y PRN SKIN 10/31/24 History topical cream ondansetron 4 mg disintegrating 4 mg PO Q4H PRN PRN na usea and 12/21/24 12/21/24 History tablet vomiting Allergy/AdvReac Type Severity Reaction Status Date / Time atorvastatin (From Lipitor) AdvReac MUSCLE ACHE Verified 12/22/24 06:31 Family History (Updated 10/31/24 @ 04:[address] Elidia Cunningham MD) Father Cancer abdominal tumor--unsure type Brother Heart disease Sister Brain mass Mother Brain aneurysm Surgical History (Updated 12/21/24 @ 09:47 by Destinee Del Valle) History of arteriovenostomy for renal dialysis (~05/2021) Hx of left knee surgery History of esophagogastroduodenoscopy (EGD) Hx of cystoscopy History of cardiac catheterization History of coronary artery bypass graft History of heart artery stent Social History (Updated 10/31/24 @ 04:[address] Elidia Cunningham MD) household members: none Smoking Status: Current every day smoker tobacco type: cigarettes quit status: considering quitting alcohol intake: former substance use type: does not use Past Medical/Surgical History Planned Operation Planned Operative Procedure(s): COLONOSCOPY Previous Hospitalizations/Surgeries HX Hospitalizations: Yes (10/2024 FLU/DIALYSIS ISSUES) Any Problems With Anesthesia: No You/Your Family Experience Fever (Hyperthermia) With Anes: No Cholinesterase deficiency: No Cardiovascular Hx Hypertension: Yes (FAIRLY CONTROLLED WITH MED) Respiratory Hx Sleep Apnea: No Hx Respiratory Tract Infection/Cold (presently): No Do You Snore Loudly (louder than talking or can be heard): No Do You Often Feel Tired/ Fatigued/ Sleepy Dring Daytime?: Yes Has Anyone Observed You Stop Breathing During Sleep?: No Result (for STOP score): Positive Smoking Status: Current every day smoker Neurological Does patient have nerve stimulator: No Reproduction : No Miscellaneous Recent Exposure to Contagious Disease: No Allergies atorvastatin (From Lipitor) Adverse Reaction (Verified 12/22/24 06:31) MUSCLE ACHE Discharge Is Pt Admitted From a Snf, or a Alf: No After D/C, Where Do you Plan to Go: Return Home Vital Signs Vital Signs Vital Signs: 12/22/24 06:33 12/22/24 06:33 Temperature 98.3 F Temperature Source Temporal Pulse Rate 70 Respiratory Rate 16 Respiratory Pattern Normal Blood Pressure 114/76 Blood Pressure Mean 88 Blood Pressure Source Monitor Blood Pressure Position Semi-Fowlers Blood Pressure Location Right Arm Pulse Ox 93 Oxygen Delivery Method Room Air Weight Weight: 163 lb 2.273 oz Body Mass Index (BMI) 23.3 Physical Exam Const alert, oriented x3 and no apparent distress HEENT normocephalic and head/scalp atraumatic Resp normal respiratory effort Cardio regular rate GI soft to palpation and non-tender; Negative for non-distended Palpation: Negative for guarding Extremity Extremity Narrative: Left forearm fistula good thrill Skin no rashes or lesions noted Neuro CN's II-XII intact bilaterally Psych mental status grossly normal Assessment & Plan Assessment/Plan (1) Screening for colon cancer: (2) Hemorrhoids, internal, with bleeding: (3) Anal fistula: Surgery Risks - Colonoscopy I discussed with the patient the risks of the procedure: Yes Risks Include but are not Limited To: Risks include but are not limited to: Bleeding, perforation requiring further surgery, inability to complete colonoscopy requiring barium enema. 05/28/25 0717 Cosigner Signature (if applicable): CC: Dr. Marlo Pollard, DO; Dr. Maria Ines Mckoy MD~ Signed [facility]05-28-2025 [facility] Medical Records Department [address] [place] [address] History Physical Exam 12/22/24 0708 MR#: [id number] Acct: [id number] Name: MARLO ADAMSON Rep #: [id number] : 1960 64 From: Maria Ines Mckoy MD PCP: Dr. Marlo Pollard DO Status:[facility] Location: [place] [address] HPI - General General Date of Service: 12/22/24 HPI Narrative MARLO ADAMSON, is a 64 M who presents for colonoscopy. Patient states he still been expressing about 4 times a day clearish material from the area of the anal fistula/abscess. Patient is never had colonoscopy. Patient denies any family history of colon cancer. Office visit 10/13/2024 HPI HPI: 64-year-old male presents due to hemorrhoid, anal fistula, colonoscopy. Patient does have past medical history for end-stage dialysis on home hemodialysis 4 days a week (Friday, Friday, , Friday) via right forearm fistula. Patient is interested in getting on the kidney transplant list and would need a colonoscopy and to deal with the hemorrhoids and possible fistula prior to that. Patient states about 2 years ago in July he was in bed for about 6 weeks and did notice a larger swelling near his anus about the size of an egg yolk. Patient had some clearish drainage from that and also has noticed hemorrhoid more recently and it seems like that the area of the swelling does track towards the hemorrhoid as what he can feel. Patient does admit to draining the hemorrhoid as well as the area of swelling by sterilizing the needle and poking it. Patient states he typically gets clear liquid I will initially bloody and then clear liquid out of both of them thus he thinks they are connected. Patient has not had to poke the area of the fistula recently as he is able to do his expressed an open hole. Patient denies any pain with this. Patient states he has had a hemorrhoid since he was a kid. Patient also states he has severe polycystic disease of his kidneys which she had previously been told he had largest kidneys some doctor has never ever seen. He he states he did have a CT [facility] sometime in the past we will try to get that record. Patient has never had a colonoscopy, denies any family history of colon cancer. [facility] Medical History (Updated 12/22/24 @ 07:[address] Maria Ines Mckoy MD) Wears glasses History of steroid therapy Arthritis Low iron Back pain Syncope Difficulty swallowing Heartburn Smoker Shortness of breath on exertion Leg cramps History of pain when walking History of edema MRSA (methicillin resistant staph aureus) culture positive ESRD (end stage renal disease) ESRD on hemodialysis ( 10/31/24) Anal fistula Hemorrhoids, internal, with bleeding Wears dentures Marijuana use Polycystic renal disease DVT (deep venous thrombosis) High cholesterol History of echocardiogram Cardiology follow-up encounter Hypertension Hemorrhoids, internal Myocardial infarction HTN (hypertension) Osteoarthritis Anxiety and depression CAD (coronary artery disease) Home Medications ???Medication ???Instructions ???Recorded ???Last Taken ???Type aspirin 81 mg tablet,delayed 81 mg PO DAILY 05/29/21 12/17/24 H istory release cholecalciferol (vitamin D3) 125 125 mcg PO DAILY 05/29/21 12/21/24 History mcg (5,000 unit) capsule metoprolol tartrate 25 mg tablet 25 mg PO BID 05/29/21 12/22/24 His tory pravastatin 40 mg tablet 40 mg PO QHS 05/29/21 12/20/24 His tory Hydrocortisone 2.5%/lidocaine 5% #30 ea 10/13/24 Unknown Rx suppository (cmpd) (hydrocortisone 2.5%/lidocaine 5% suppository (compound)) hydrocortisone 2.5 % topical cream 1 applic IA QD-BID PRN hemorrhoi ds 10/13/24 12/21/24 Rx with perineal applicator #30 grams (Proctozone-HC) oxycodone 10 mg tablet 10 mg PO TID PRN pain 10/13/24 History vitamin B complex-vitamin C-folic 1 tab PO QDAY 10/13/24 Unknown Hi story acid 0.8 mg tablet (Renal-Svetlana) calcitriol 0.25 mcg capsule 0.25 mcg PO DAILY 10/31/24 5 History lidocaine-prilocaine 2.5 %-2.5 % 1 applic topical DAILY PRN SKIN 12/21/24 History topical cream ondansetron 4 mg disintegrating 4 mg PO Q4H PRN PRN nausea and 12/21/24 History tablet vomiting Allergy/AdvReac Type Severity Reaction Status Date / Time atorvastatin (From Lipitor) AdvReac MUSCLE ACHE Verified 12/22/24 06:31 Family History (Updated 10/31/24 @ 04:[address] Elidia Cunningham MD) Father Cancer abdominal tumor--unsure type Brother Heart disease Sister Brain mass Mother Brain aneurysm Surgical History (Updated 12/21/24 @ 09:47 by Destinee Del Valle) History of arteriovenostomy for renal dialysis ( 05/2021) Hx of left knee surgery History of esophagogastroduodenoscopy (EGD) Hx of cystoscopy History of cardiac catheterization Hist (more content not included)...[facility]04-08-2025 Discharge summary Author Himanshu Almaguer [facility] Note Date/Time November 02, 2024 11:3 2am [facility] Medical Records Department [address] [place] [address] Discharge Summary 11/02/24 1124 MR#: [id number] Acct: [id number] Name: MARLO ADAMSON Rep #:[id number] : 1960 64 From: Himanshu Almaguer DO PCP: Dr. Marlo Pollard DO Status:ADM IN Location: [place] [address] Providers Date of Admission: 10/31/24 Primary Care Physician: Dr. Marlo Pollard DO Consultations 10/31/24 04:11 Consult: Nephrology Routine Consulting Provider: Ying Shirley Reason for Consult: ESRD on HD EMERGENT Consult: No MD Notified: Yes Date Notified: 10/31/24 Time Notified: 03:50 Method of Notification: Answering Service Reason For Visit: HYPOXIA, PNA Diagnosis Discharge Diagnosis (1) Pneumonia: Status: Acute Code(s): J18.9 - Pneumonia, unspecified organism Plan: MRSA pneumonia Sputum culture +MRSA. DC with linezolid Plan Diarrhea: Cdiff and enteric panel negative. Fecal leukocytes +. ESRD: nephrology consult. Dialysis-dependent. Pt had issue with dialysis line today. [place] that the line clotted off due to no heparinization. No need for fistulagram at this time. DW Dr. Shirley who is going to try to get him heparin for home dialysis. He may also try to get him a fistulagram as outpt. VTE prophylaxis: SQ heparin. Medications at Discharge Home Medications aspirin 81 mg tablet,delayed release 81 mg PO DAILY 05/29/21 cholecalciferol (vitamin D3) 125 mcg (5,000 unit) capsule 125 mcg PO DAILY 05/29/21 metoprolol tartrate 25 mg tablet 25 mg PO BID 05/29/21 pravastatin 40 mg tablet 40 mg PO QHS 05/29/21 Hydrocortisone 2.5%/lidocaine 5% suppository (cmpd) (hydrocortisone 2.5%/lidocaine 5% suppository (compound)) #30 ea 10/13/24 hydrocortisone 2.5 % topical cream with perineal applicator (Proctozone-HC) 1 applic IA QD-BID PRN hemorrhoids #30 grams 10/13/24 oxycodone 10 mg tablet 10 mg PO TID PRN pain 10/13/24 vitamin B complex-vitamin C-folic acid 0.8 mg tablet (Renal-Svetlana) 1 tab PO QDAY 10/13/24 peg 3350-electrolytes 236 gram-22.74 gram-6.74 gram-5.86 gram solution 4,000 ml PO ONCE #4,000 mL 10/27/24 calcitriol 0.25 mcg capsule 0.25 mcg PO DAILY 10/31/24 lidocaine-prilocaine 2.5 %-2.5 % topical cream topical DAILY 10/31/24 guaifenesin 600 mg tablet, extended release 12 hr (Mucinex) 600 mg PO BID #10 tabs 11/02/24 linezolid 600 mg tablet 600 mg PO Q12H #10 tabs 11/02/24 Hospital Course Operations None Procedures Dialysis Summary of Care Provided Minutes Spent on Discharge: 32 Hospital Course: Pt presents with SOB. Found to have pneumonia, and sputum culture positive for MRSA. He was on vancomycin. He did receive dialysis here and his line clotted off. It had clotted off x2 at home (he does home dialysis). Seen by nephrology who advised running heparin with his dialysis and have arranged for it as outpt.Pt to be discharged with linezolid. Medical Records Data Medical Nutrition Assessment Dietitian: Malnutrition Criteria Met Start: 10/31/24 17:11 Freq: Status: Active Protocol: Document 10/31/24 17:11 RMA (Rec: 10/31/24 17:11 RMA [id number]) Nutrition Malnutrition Evidence of Yes Malnutrition Exists Malnutrition (severe Acute Illness/Injury ): Evidenced By Suboptimal Energy Intake (Severe),Weight Loss (Severe) Clinical Problem Acute Disease or Injury Related Malnutrition Etiology severe pro-damion malnutrition in the context of acute illness related to inadequate oral intake and inadequate energy intake Signs/Symptoms as evidenced by ~5-6% unintentional weight loss x past 1 month and PO meeting less than 75% of estimated nutrition needs x 1 month; BMI 22.2 Status Active Problem Recommendation Dietitian Will continue cardiac diet for now and restrict diet Recommendations/ for renal parameters as needed. Changes Will add 120mL PO Nepro 3 times per day w/ meals. Liberalize diet as needed to optimize oral intake. Weight / BMI Weight Weight: 70.6 kg Body Mass Index (BMI) 22.2 ABG / Lab / Microbiology Data 11/02/24 07:12 11/02/24 07:12 Laboratory: Laboratory Results - last 24 hr 11/02/24 07:12: WBC 7.6, RBC 3.99 L, Hgb 12.4 L, Hct 36.8 L, MCV 92.2, MCH 31.1,MCHC 33.7, RDW Std Deviation 46.2 H, RDW Coeff of Fito 13.6, Plt Count 218, MPV 9.4, Immature Gran % (Auto) 2.100 H, Neut % (Auto) 73.4 H, Lymph % (Auto) 12.6 L, Curry % (Auto) 9.8, Eos % (Auto) 1.7, Baso % (Auto) 0.4, Absolute Neuts (auto) 5.6, Absolute Lymphs (auto) 0.96, Nucleated RBC % 0, Sodium 134, Potassium 3.8, Chloride 98, Carbon Dioxide 20.8 L, Anion Gap 14, BUN 41 H, Creatinine 5.94 H, Estim Creat Clear Calc 12.55 L, Est GFR (MDRD) Non-Af 10 L, BUN/Creatinine Ratio 7.0 L, Glucose 88, Calcium 8.9 Microbiology: Microbiology 10/31/24 12:05 Sputum, Expectorated/Coughed Gram Stain - Final 10/31/24 12:05 Sputum, Expectorated/Coughed Respiratory Culture - Final Mixed normal respiratory jose enrique. No Streptococcus pneumoniae, beta-hemolytic Streptococcus or Staphylococcus aureus isolated. 11/01/24 03:22 Stool Stool Lactoferrin - Final 11/01/24 03:22 Stool Enteric Bacteriology - Final 11/01/24 03:22 Stool Stool Occult Blood (PAULIE) - Final 11/01/24 03:22 Stool Clostridioides difficile (PCR) - Final 10/31/24 12:05 Urine, Clean Catch Legionella Antigen - Final 10/31/24 12:05 Urine, Clean Catch Streptococcus pneumoniae Antigen (M - Final 10/31/24 04:50 Nasal Secretion MRSA (PCR) - Final Meth. resistant Staph. aureus 10/31/24 04:41 Mucosa - Nasopharyngeal Respiratory Panel (PCR) - Final D/C Instructions Discharge Diet: Renal Diet DC O2, CPAP, BIPAP Needs Home O2 Discharge instructions: No Meaningful Use Info Meaningful Use Meaningful Use Diagnoses (Choose all that apply): None applicable Ischemic Stroke Statin Dosing Therapy Reference: STATIN DOSE THERAPY REFERENCE: * Patients > 75 years receive moderate or high dose statin therapy. * Patients 75 years or YOUNGER should receive HIGH intensity statin dose unless contraindicated. You will be required to document reason for non-treatment if statin daily dose does not meet guidelines. HIGH DOSE STATIN THERAPY DAILY Atorvastatin > than or = to 40 mg Rosuvastatin > than or = to 20 mg Amlodipine + Atorvastatin > than or = to 2.5/40 mg Ezetimibe + Simvastatin 10/80 mg Simvastatin 80mg Discharge Plan Admission Admit Date/Time: 10/31/24 03:49 Primary Reason for Your Visit: pneumonia Attending Provider: Himanshu Almaguer Primary Care Provider: Marlo Pollard Consulting Providers: Elidia Cunningham; Ying Shirley; Chirag Lucero Discharge Orders/Prescriptions Prescriptions: New guaifenesin [Mucinex] 600 mg tablet extended release 12hr 600 mg PO BID Qty: 10 0RF linezolid 600 mg tablet 600 mg PO Q12H Qty: 10 0RF Continued metoprolol tartrate 25 mg tablet 25 mg PO BID pravastatin 40 mg tablet 40 mg PO QHS aspirin 81 mg tablet,delayed release (DR/EC) 81 mg PO DAILY cholecalciferol (vitamin D3) 125 mcg (5,000 unit) capsule 125 mcg PO DAILY Renal-Svetlana 0.8 mg tablet 1 tab PO QDAY oxycodone 10 mg tablet 10 mg PO TID PRN (Reason: pain) (DME) hydrocortisone 2.5%/lidocaine 5% suppository (compound) Suppository See Rx Instructions .ROUTE Qty: 30 1RF Rx Instructions: insert rectum twice daily hydrocortisone [Proctozone-HC] 2.5 % cream with perineal applicator 1 applic IA QD-BID PRN (Reason: hemorrhoids) Qty: 30 0RF lidocaine-prilocaine 2.5-2.5 % cream topical DAILY calcitriol 0.25 mcg capsule 0.25 mcg PO DAILY peg 3350-electrolytes 236-22.74-6.74 -5.86 gram recon soln 4,000 ml PO ONCE Qty: 4000 0RF Rx Instructions: until fecal effluent is clear; do not exceed a total volume of 4000 mL Discontinued ondansetron 4 mg tablet,disintegrating 4 mg PO BID PRN (Reason: Nausea) doxycycline monohydrate 100 mg tablet 100 mg PO BID Referrals / Follow Up: Marlo Pollard DO [Primary Care Provider] - Within 2 Weeks Disposition Disposition (needs filled in before D/C Order can be placed): Home, Self Care Charges/Coding Visit Charges Inpatient E&M: 65322 Disch Hosp >30min 11/02/24 1132 <Electronically signed by Himanshu Almaguer DO> Cosigner Signature (if applicable): CC: Dr. Himanshu Almaguer DO; Dr. Marlo Pollard DO~ Signed [facility] Work Phone: 1([phone]) 686-152304-08-2025 Progress note Author Himanshu Almaguer [facility] Note Date/Time November 02, 2024 11:2 4am [facility] System Medical Records Department [address] [place] [address] Progress Note - Hospitalist 11/02/24 0711 MR#: [id number] Acct: [id number] Name: JUAN DIEGOMARLO Rodrigo Rep #:[id number] : 1960 64 From: Himanshu Almaguer DO PCP: Dr. Marlo Latrice, DO Status:ADM IN Location: MS3 [id number] Reason for Visit Reason for Visit: Diagnoses Pneumonia, unspecified organism (10/31/24) Hypoxemia (10/31/24) Other specified health status (10/31/24) Subjective Subjective Feels good. No new issues. Objective Data Objective Data Vital Signs: Vital Signs Temp Pulse Resp BP Pulse Ox O2 Del Method O2 Flow Rate 36.8 C 81 18 126/72 H 94 Nasal Cannula 2 11/02/24 03:40 11/02/24 03:40 11/02/24 03:40 11/02/24 03:40 11/02/24 03:40 11/02/24 03:44 11/02/24 03:44 Oxygen Flow Rate (L/min) 2 Oxygen Delivery Method Nasal Cannula Weight: 70.6 kg Body Mass Index (BMI) 22.2 Intake & Output: Intake and Output for Last 24 Hours 10/31/24 11/01/24 11/02/24 23:59 23:59 23:59 Intake Total 250 / 550 1685 / 1685 400 / 400 Output Total 0 / 0 200 / 200 200 / 200 Balance 250 / 550 1485 / 1485 200 / 200 Medical Nutrition Assessment Dietitian: Malnutrition Criteria Met Start: 10/31/24 17:11 Freq: Status: Active Protocol: Document 10/31/24 17:11 RMA (Rec: 10/31/24 17:11 RMA [id number]) Nutrition Malnutrition Evidence of Yes Malnutrition Exists Malnutrition (severe Acute Illness/Injury ): Evidenced By Suboptimal Energy Intake (Severe),Weight Loss (Severe) Clinical Problem Acute Disease or Injury Related Malnutrition Etiology severe pro-damion malnutrition in the context of acute illness related to inadequate oral intake and inadequate energy intake Signs/Symptoms as evidenced by ~5-6% unintentional weight loss x past 1 month and PO meeting less than 75% of estimated nutrition needs x 1 month; BMI 22.2 Status Active Problem Recommendation Dietitian Will continue cardiac diet for now and restrict diet Recommendations/ for renal parameters as needed. Changes Will add 120mL PO Nepro 3 times per day w/ meals. Liberalize diet as needed to optimize oral intake. Lab / Micro Data 11/02/24 07:12 11/02/24 07:12 Micro: Microbiology 11/01/24 03:22 Stool Stool Lactoferrin - Final 11/01/24 03:22 Stool Enteric Bacteriology - Final 11/01/24 03:22 Stool Stool Occult Blood (PAULIE) - Final 11/01/24 03:22 Stool Clostridioides difficile (PCR) - Final 10/31/24 12:05 Sputum, Expectorated/Coughed Gram Stain - Final 10/31/24 12:05 Urine, Clean Catch Legionella Antigen - Final 10/31/24 12:05 Urine, Clean Catch Streptococcus pneumoniae Antigen (M - Final 10/31/24 04:50 Nasal Secretion MRSA (PCR) - Final Meth. resistant Staph. aureus 10/31/24 04:41 Mucosa - Nasopharyngeal Respiratory Panel (PCR) - Final Physical Exam Const alert and no apparent distress HEENT head/scalp atraumatic and moist oral mucous membranes Resp normal respiratory effort, no retractions, no use of accessory muscles and clearto auscultation bilaterally Cardio regular rate, regular rhythm, S1 normal heart sound and S2 normal heart sound GI normal to inspection, nondistended, normoactive bowel sounds, soft to palpation and non-tender Assessment & Plan Assessment/Plan (1) Pneumonia: PLAN: MRSA pneumonia Sputum culture +MRSA. DC with linezolid PLAN: Plan Diarrhea: Cdiff and enteric panel negative. Fecal leukocytes +. ESRD: nephrology consult. Dialysis-dependent. Pt had issue with dialysis line today. [place] that the line clotted off due to no heparinization. No need for fistulagram at this time. DW Dr. Shirley who is going to try to get him heparin for home dialysis. He may also try to get him a fistulagram as outpt. VTE prophylaxis: SQ heparin. 11/02/24 1124 <Electronically signed by Himanshu Almaguer DO> Cosigner Signature (if applicable): CC: ~ Signed [facility] Work Phone: 1([phone]) 788-410204-08-2025 Consult note Author Maranda Bustamante [facility] Note Date/Time November 02, 2024 11:0 0am [facility] System Medical Records Department [address] [place] [address] Consultation - Nephrology 11/01/24 1205 MR#: [id number] Acct: [id number] Name: MARLO ADAMSON Rep #:[id number] : 1960 64 From: Maranda mcmahan SPECIAL EDUCATION ADMINISTRATOR-C PCP: Dr. Marlo Pollard, DO Status:ADM IN Location: MS3 [id number] Assessment & Plan Assessment/Plan (1) ESRD (end stage renal disease): PLAN: Plan Patient has history of ESRD secondary to polycystic kidney disease and is on home hemodialysis 4 days weekly via AVF. Patient's last hemodialysis session was on Friday however this was partial session due to lines clotting during treatment. Patient will undergo hemodialysis today. Discussed fluid removal with patient, patient feels shortness of breath is related to pneumonia and feels he does not have any extra fluid on therefore asking no fluid removal withdialysis today. On exam patient does appear to be near euvolemic, he is now on room air. Likely EDW will be lowered as patient has lost body weight. Blood pressure is acceptable. Hemoglobin acceptable, at goal and does not need JACKSON with dialysis today. Patient is on IV antibiotics, ceftriaxone and receiving breathing treatments. Further orders forthcoming as hospitalization evolves. Assessment and plan reviewed with Dr. Shirley. HPI Consult Data Date of Consult: 11/01/24 HPI Narrative HPI Narrative: MARLO ADAMSON, is a 64 M who presented to the emergency room early yesterday morning with complaints of shortness of breath, cough and congestion. Admitted for pneumonia. Patient was admitted for acute hypoxic respiratory failure secondary to pneumonia. Nephrology consulted as patient has history of ESRD on home hemodialysis. Patient was seen in dialysis this morning, reports feeling better. His oxygenation improved and he is currently on room air. Patient denies any nausea or vomiting, he does state appetite was poor and he has lost weight. [facility] Medical History (Updated 11/01/24 @ 12:07 by ELIN Carroll) Tobacco use ESRD on hemodialysis (~10/31/24) Wears dentures Marijuana use Polycystic renal disease DVT (deep venous thrombosis) High cholesterol History of echocardiogram Cardiology follow-up encounter Hypertension Hemorrhoids, internal GERD (gastroesophageal reflux disease) Myocardial infarction HTN (hypertension) Osteoarthritis Anxiety and depression CAD (coronary artery disease) Home Medications ?Medication ?Instructions ?Recorded ?Last Taken ?Type aspirin 81 mg tablet,delayed 81 mg PO DAILY 05/29/21 U nknown History release cholecalciferol (vitamin D3) 125 125 mcg PO DAILY 09/17 Unknown History mcg (5,000 unit) capsule metoprolol tartrate 25 mg tablet 25 mg PO BID 05/29/21 Unknown History ondansetron 4 mg disintegrating 4 mg PO BID PRN Nausea 05/29/21 Unknown History tablet pravastatin 40 mg tablet 40 mg PO QHS 05/29/21 Unknow n History Hydrocortisone 2.5%/lidocaine 5% #30 ea 10/13/24 Unkno wn Rx suppository (cmpd) (hydrocortisone 2.5%/lidocaine 5% suppository (compound)) hydrocortisone 2.5 % topical cream 1 applic IA QD-BID PRN hemorrhoids 10/13/24 Unknown Rx with perineal applicator #30 grams (Proctozone-HC) oxycodone 10 mg tablet 10 mg PO TID PRN pain Unknown History vitamin B complex-vitamin C-folic 1 tab PO QDAY Unknown History acid 0.8 mg tablet (Renal-Svetlana) peg 3350-electrolytes 236 4,000 ml PO ONCE #4,000 mL 0 10/27/24 Unknown Rx gram-22.74 gram-6.74 gram-5.86 gram solution calcitriol 0.25 mcg capsule 0.25 mcg PO DAILY 10/31/24 Unknown History doxycycline monohydrate 100 mg 100 mg PO BID 10/31/24 Unknown History tablet lidocaine-prilocaine 2.5 %-2.5 % topical DAILY 5 Unknown History topical cream Allergy/AdvReac Type Severity Reaction Status Date / Time atorvastatin (From Lipitor) AdvReac MUSCLE ACHE Verified 10/13/24 14:15 Family History (Updated 10/31/24 @ 04:[address] Elidia Cunningham MD) Father Cancer abdominal tumor--unsure type Brother Heart disease Sister Brain mass Mother Brain aneurysm Surgical History History of arteriovenostomy for renal dialysis (~05/2021) Hx of left knee surgery History of esophagogastroduodenoscopy (EGD) Hx of cystoscopy History of cardiac catheterization History of coronary artery bypass graft History of heart artery stent Social History (Updated 10/31/24 @ 04:[address] Elidia Cunningham MD) household members: none Smoking Status: Current every day smoker tobacco type: cigarettes Smoking packsper day: 1 Smoking cigarettes per day: 20.0 quit status: considering quitting alcohol intake: former substance use type: does not use ROS ROS Narrative As in HPI Physical Exam Narrative Alert and oriented x 3, no apparent distress S1, S2, RRR Lungs sound diminished. On room air. No rales or rhonchi Abdomen soft, nontender No edema Left forearm AV fistula accessed for hemodialysis Medical Records Data Medical Nutrition Assessment Dietitian: Malnutrition Criteria Met Start: 10/31/24 17:11 Freq: Status: Active Protocol: Document 10/31/24 17:11 RMA (Rec: 10/31/24 17:11 RMA [id number]) Nutrition Malnutrition Evidence of Yes Malnutrition Exists Malnutrition (severe Acute Illness/Injury ): Evidenced By Suboptimal Energy Intake (Severe),Weight Loss (Severe) Clinical Problem Acute Disease or Injury Related Malnutrition Etiology severe pro-damion malnutrition in the context of acute illness related to inadequate oral intake and inadequate energy intake Signs/Symptoms as evidenced by ~5-6% unintentional weight loss x past 1 month and PO meeting less than 75% of estimated nutrition needs x 1 month; BMI 22.2 Status Active Problem Recommendation Dietitian Will continue cardiac diet for now and restrict diet Recommendations/ for renal parameters as needed. Changes Will add 120mL PO Nepro 3 times per day w/ meals. Liberalize diet as needed to optimize oral intake. Lab / Micro Data 11/01/24 04:20 11/01/24 04:20 Labs: Laboratory Results - last 24 hr 11/01/24 04:20: WBC 9.9, RBC 4.14 L, Hgb 13.1, Hct 37.4 L, MCV 90.3, MCH 31.6, MCHC 35.0, RDW Std Deviation 45.1 H, RDW Coeff of Fito 13.5, Plt Count 188, MPV 9.6, Immature Gran % (Auto) 1.000 H, Neut % (Auto) 78.8 H, Lymph % (Auto) 11.3 L, Curry % (Auto) 7.5, Eos % (Auto) 1.1, Baso % (Auto) 0.3, Absolute Neuts (auto) 7.8 H, Absolute Lymphs (auto) 1.12, Nucleated RBC % 0, Sodium 132 L, Potassium 3.4, Chloride 92 L, Carbon Dioxide 21.9, Anion Gap 18 H, BUN 63 H, Creatinine 7.59 H*, Estim Creat Clear Calc 9.82 L*, Est GFR (MDRD) Non-Af 7 L, BUN/Creatinine Ratio 8.2 L, Glucose 101 H, Calcium 8.9 Micro: Microbiology 11/01/24 03:22 Stool Clostridioides difficile (PCR) - Final 11/01/24 03:22 Stool Stool Lactoferrin - Final 11/01/24 03:22 Stool Stool Occult Blood (PAULIE) - Final 10/31/24 12:05 Sputum, Expectorated/Coughed Gram Stain - Final 10/31/24 12:05 Urine, Clean Catch Legionella Antigen - Final 10/31/24 12:05 Urine, Clean Catch Streptococcus pneumoniae Antigen (M - Final 10/31/24 04:50 Nasal Secretion MRSA (PCR) - Final Meth. resistant Staph. aureus 10/31/24 04:41 Mucosa - Nasopharyngeal Respiratory Panel (PCR) - Final 11/01/24 1211 <Electronically signed by Maranda WORTHINGTON> Cosigner Signature (if applicable): 11/02/24 1100 <Electronically signed by Ying Shirley MD> CC: Dr. Marlo Pollard, ~ Signed [facility] Work Phone: [phone]) 308-413104-08-2025 Progress note [facility] Medical Records Department [address] [place] [id number] Progress Note - Nephrology 11/02/24 1216 MR#: [id number] Acct: [id number] Name: MARLO ADAMSON Rep #:[id number] : 1960 64 From: Ying alfaro MD PCP: Dr. Marlo Pollard, Status:ADM IN Location: [place] [id number] Subjective Subjective no new complaints Objective Data Objective Data Vital Signs: Vital Signs Temp Pulse Resp BP Pulse Ox O2 Del Method O2 Flow Rate 97.8 F 75 18 144/70 H 95 Room Air 2 11/02/24 08:10 11/02/24 09:16 11/02/24 08:10 11/02/24 09:16 11/02/24 08:35 11/02/24 08:35 11/02/24 03:44 Oxygen Flow Rate (L/min) 2 Oxygen Delivery Method Room Air Weight: 70.6 kg Body Mass Index (BMI) 22.2 Intake & Output: Intake and Output for Last 24 Hours 10/31/24 11/01/24 11/02/24 23:59 23:59 23:59 Intake Total 250 / 550 1685 / 1685 450 / 450 Output Total 0 / 0 200 / 200 200 / 200 Balance 250 / 550 1485 / 1485 250 / 250 Medical Nutrition Assessment Dietitian: Malnutrition Criteria Met Start: 10/31/24 17:11 Freq: Status: Active Protocol: Document 10/31/24 17:11 RMA (Rec: 10/31/24 17:11 RMA [id number]) Nutrition Malnutrition Evidence of Yes Malnutrition Exists Malnutrition (severe Acute Illness/Injury ): Evidenced By Suboptimal Energy Intake (Severe),Weight Loss (Severe) Clinical Problem Acute Disease or Injury Related Malnutrition Etiology severe pro-damion malnutrition in the context of acute illness related to inadequate oral intake and inadequate energy intake Signs/Symptoms as evidenced by ~5-6% unintentional weight loss x past 1 month and PO meeting less than 75% of estimated nutrition needs x 1 month; BMI 22.2 Status Active Problem Recommendation Dietitian Will continue cardiac diet for now and restrict diet Recommendations/ for renal parameters as needed. Changes Will add 120mL PO Nepro 3 times per day w/ meals. Liberalize diet as needed to optimize oral intake. Lab / Micro Data 11/02/24 07:12 11/02/24 07:12 Labs: Laboratory Results - last 24 hr 11/02/24 07:12: WBC 7.6, RBC 3.99 L, Hgb 12.4 L, Hct 36.8 L, MCV 92.2, MCH 31.1,MCHC 33.7, RDW Std Deviation 46.2 H, RDW Coeff of Fito 13.6, Plt Count 218, MPV 9.4, Immature Gran % (Auto) 2.100 H, Neut % (Auto) 73.4 H, Lymph % (Auto) 12.6 L, Curry % (Auto) 9.8, Eos % (Auto) 1.7, Baso % (Auto) 0.4, Absolute Neuts (auto) 5.6, Absolute Lymphs (auto) 0.96, Nucleated RBC % 0, Sodium 134, Potassium 3.8, Chloride 98, Carbon Dioxide 20.8 L, Anion Gap 14, BUN 41 H, Creatinine 5.94 H, Estim Creat Clear Calc 12.55 L, Est GFR (MDRD) Non-Af 10 L, BUN/Creatinine Ratio 7.0 L, Glucose 88, Calcium 8.9 Micro: Microbiology 10/31/24 12:05 Sputum, Expectorated/Coughed Gram Stain - Final 10/31/24 12:05 Sputum, Expectorated/Coughed Respiratory Culture - Final Mixed normal respiratory jose enrique. No Streptococcus pneumoniae, beta-hemolytic Streptococcus or Staphylococcus aureus isolated. 11/01/24 03:22 Stool Stool Lactoferrin - Final 11/01/24 03:22 Stool Enteric Bacteriology - Final 11/01/24 03:22 Stool Stool Occult Blood (PAULIE) - Final 11/01/24 03:22 Stool Clostridioides difficile (PCR) - Final 10/31/24 12:05 Urine, Clean Catch Legionella Antigen - Final 10/31/24 12:05 Urine, Clean Catch Streptococcus pneumoniae Antigen (M - Final 10/31/24 04:50 Nasal Secretion MRSA (PCR) - Final Meth. resistant Staph. aureus 10/31/24 04:41 Mucosa - Nasopharyngeal Respiratory Panel (PCR) - Final Physical Exam Narrative Alert and oriented x 3, no apparent distress S1, S2, RRR Lungs sound diminished. On room air. No rales or rhonchi Abdomen soft, nontender No edema Left forearm AV fistula accessed for hemodialysis Assessment & Plan Assessment/Plan (1) ESRD (end stage renal disease): PLAN: Plan Patient has history of ESRD secondary to polycystic kidney disease and is on home hemodialysis 4 days weekly via AVF. received HD yesterday. looks ok. wantsto go home. likely a little hypercoagulablein setting of infection. called and spoke to staff at dialysis unit. will use heparin with HD for couple weeks. if any further issues will arrange for a fistulogram. spoke to HD nurse. he ran ok until last 15 min or so. dw hospitalist 11/02/24 1219 Cosigner Signature (if applicable): CC: ~ Signed [facility]04-08-2025 Discharge summary [facility] Medical Records Department [address] [place] [address] Discharge Summary 11/02/24 1124 MR#: [id number] Acct: [id number] Name: MARLO ADAMSON Rep #:[id number] : 1960 64 From: Himanshu Almaguer DO PCP: Dr. Marlo Pollard DO Status:ADM IN Location: MS3 [id number] Providers Date of Admission: 10/31/24 Primary Care Physician: Dr. Marlo Pollard DO Consultations 10/31/24 04:11 Consult: Nephrology Routine Consulting Provider: Ying Shirley Reason for Consult: ESRD on HD EMERGENT Consult: No MD Notified: Yes Date Notified: 10/31/24 Time Notified: 03:50 Method of Notification: Answering Service Reason For Visit: HYPOXIA, PNA Diagnosis Discharge Diagnosis (1) Pneumonia: Status: Acute Code(s): J18.9 - Pneumonia, unspecified organism Plan: MRSA pneumonia Sputum culture +MRSA. DC with linezolid Plan Diarrhea: Cdiff and enteric panel negative. Fecal leukocytes +. ESRD: nephrology consult. Dialysis-dependent. Pt had issue with dialysis line today. [place] that the line clotted off due to no heparinization. No need for fistulagram at this time. DW Dr. Shirley who is going to try to get him heparin for home dialysis. He may also try to get him a fistulagram as outpt. VTE prophylaxis: SQ heparin. Medications at Discharge Home Medications aspirin 81 mg tablet,delayed release 81 mg PO DAILY 05/29/21 cholecalciferol (vitamin D3) 125 mcg (5,000 unit) capsule 125 mcg PO DAILY 05/29/21 metoprolol tartrate 25 mg tablet 25 mg PO BID 05/29/21 pravastatin 40 mg tablet 40 mg PO QHS 05/29/21 Hydrocortisone 2.5%/lidocaine 5% suppository (cmpd) (hydrocortisone 2.5%/lidocaine 5% suppository (compound)) #30 ea 10/13/24 hydrocortisone 2.5 % topical cream with perineal applicator (Proctozone-HC) 1 applic IA QD-BID PRN hemorrhoids #30 grams 10/13/24 oxycodone 10 mg tablet 10 mg PO TID PRN pain 10/13/24 vitamin B complex-vitamin C-folic acid 0.8 mg tablet (Renal-Svetlana) 1 tab PO QDAY 10/13/24 peg 3350-electrolytes 236 gram-22.74 gram-6.74 gram-5.86 gram solution 4,000 ml PO ONCE #4,000 mL 10/27/24 calcitriol 0.25 mcg capsule 0.25 mcg PO DAILY 10/31/24 lidocaine-prilocaine 2.5 %-2.5 % topical cream topical DAILY 10/31/24 guaifenesin 600 mg tablet, extended release 12 hr (Mucinex) 600 mg PO BID #10 tabs 11/02/24 linezolid 600 mg tablet 600 mg PO Q12H #10 tabs 11/02/24 Hospital Course Operations None Procedures Dialysis Summary of Care Provided Minutes Spent on Discharge: 32 Hospital Course: Pt presents with SOB. Found to have pneumonia, and sputum culture positive for MRSA. He was on vancomycin. He did receive dialysis here and his line clotted off. It had clotted off x2 at home (he does home dialysis). Seen by nephrology who advised running heparin with his dialysis and have arrangedfor it as outpt.Pt to be discharged with linezolid. Medical Records Data Medical Nutrition Assessment Dietitian: Malnutrition Criteria Met Start: 10/31/24 17:11 Freq: Status: Active Protocol: Document 10/31/24 17:11 RMA (Rec: 10/31/24 17:11 RMA [id number]) Nutrition Malnutrition Evidence of Yes Malnutrition Exists Malnutrition (severe Acute Illness/Injury ): Evidenced By Suboptimal Energy Intake (Severe),Weight Loss (Severe) Clinical Problem Acute Disease or Injury Related Malnutrition Etiology severe pro-damion malnutrition in the context of acute illness related to inadequate oral intake and inadequate energy intake Signs/Symptoms as evidenced by ~5-6% unintentional weight loss x past 1 month and PO meeting less than 75% of estimated nutrition needs x 1 month; BMI 22.2 Status Active Problem Recommendation Dietitian Will continue cardiac diet for now and restrict diet Recommendations/ for renal parameters as needed. Changes Will add 120mL PO Nepro 3 times per day w/ meals. Liberalize diet as needed to optimize oral intake. Weight / BMI Weight Weight: 70.6 kg Body Mass Index (BMI) 22.2 ABG / Lab / Microbiology Data 11/02/24 07:12 11/02/24 07:12 Laboratory: Laboratory Results - last 24 hr 11/02/24 07:12: WBC 7.6, RBC 3.99 L, Hgb 12.4 L, Hct 36.8 L, MCV 92.2, MCH 31.1,MCHC 33.7, RDW Std Deviation 46.2 H, RDW Coeff of Fito 13.6, Plt Count 218, MPV 9.4, Immature Gran % (Auto) 2.100 H, Neut % (Auto) 73.4 H, Lymph % (Auto) 12.6 L, Curry % (Auto) 9.8, Eos % (Auto) 1.7, Baso % (Auto) 0.4, Absolute Neuts (auto) 5.6, Absolute Lymphs (auto) 0.96, Nucleated RBC % 0, Sodium 134, Potassium 3.8, Chloride 98, Carbon Dioxide 20.8 L, Anion Gap 14, BUN 41 H, Creatinine 5.94 H, Estim Creat Clear Calc 12.55 L, Est GFR (MDRD) Non-Af 10 L, BUN/Creatinine Ratio 7.0 L, Glucose 88, Calcium 8.9 Microbiology: Microbiology 10/31/24 12:05 Sputum, Expectorated/Coughed Gram Stain - Final 10/31/24 12:05 Sputum, Expectorated/Coughed Respiratory Culture - Final Mixed normal respiratory jose enrique. No Streptococcus pneumoniae, beta-hemolytic Streptococcus or Staphylococcus aureus isolated. 11/01/24 03:22 Stool Stool Lactoferrin - Final 11/01/24 03:22 Stool Enteric Bacteriology - Final 11/01/24 03:22 Stool Stool Occult Blood (PAULIE) - Final 11/01/24 03:22 Stool Clostridioides difficile (PCR) - Final 10/31/24 12:05 Urine, Clean Catch Legionella Antigen - Final 10/31/24 12:05 Urine, Clean Catch Streptococcus pneumoniae Antigen (M - Final 10/31/24 04:50 Nasal Secretion MRSA (PCR) - Final Meth. resistant Staph. aureus 10/31/24 04:41 Mucosa - Nasopharyngeal Respiratory Panel (PCR) - Final D/C Instructions Discharge Diet: Renal Diet DC O2, CPAP, BIPAP Needs Home O2 Discharge instructions: No Meaningful Use Info Meaningful Use Meaningful Use Diagnoses (Choose all that apply): None applicable Ischemic Stroke Statin Dosing Therapy Reference: STATIN DOSE THERAPY REFERENCE: * Patients > 75 years receive moderate or high dose statin therapy. * Patients 75 years or YOUNGER should receive HIGH intensity statin dose unless contraindicated. You will be required to document reason for non-treatment if statin daily dose does not meet guidelines. HIGH DOSE STATIN THERAPY DAILY Atorvastatin > than or = to 40 mg Rosuvastatin > than or = to 20 mg Amlodipine + Atorvastatin > than or = to 2.5/40 mg Ezetimibe + Simvastatin 10/80 mg Simvastatin 80mg Discharge Plan Admission Admit Date/Time: 10/31/24 03:49 Primary Reason for Your Visit: pneumonia Attending Provider: Himanshu Almaguer Primary Care Provider: Marlo Pollard Consulting Providers: Elidia Cunningham; Ying Shirley; Chirag Lucero Discharge Orders/Prescriptions Prescriptions: New guaifenesin [Mucinex] 600 mg tablet extended release 12hr 600 mg PO BID Qty: 10 0RF linezolid 600 mg tablet 600 mg PO Q12H Qty: 10 0RF Continued metoprolol tartrate 25 mg tablet 25 mg PO BID pravastatin 40 mg tablet 40 mg PO QHS aspirin 81 mg tablet,delayed release (DR/EC) 81 mg PO DAILY cholecalciferol (vitamin D3) 125 mcg (5,000 unit) capsule 125 mcg PO DAILY Renal-Svetlana 0.8 mg tablet 1 tab PO QDAY oxycodone 10 mg tablet 10 mg PO TID PRN (Reason: pain) (DME) hydrocortisone 2.5%/lidocaine 5% suppository (compound) Suppository See Rx Instructions .ROUTE Qty: 30 1RF Rx Instructions: insert rectum twice daily hydrocortisone [Proctozone-HC] 2.5 % cream with perineal applicator 1 applic IA QD-BID PRN (Reason: hemorrhoids) Qty: 30 0RF lidocaine-prilocaine 2.5-2.5 % cream topical DAILY calcitriol 0.25 mcg capsule 0.25 mcg PO DAILY peg 3350-electrolytes 236-22.74-6.74 -5.86 gram recon soln 4,000 ml PO ONCE Qty: 4000 0RF Rx Instructions: until fecal effluent is clear; do not exceed a total volume of 4000 mL Discontinued ondansetron 4 mg tablet,disintegrating 4 mg PO BID PRN (Reason: Nausea) doxycycline monohydrate 100 mg tablet 100 mg PO BID Referrals / Follow Up: Marlo Pollard DO [Primary Care Provider] - Within 2 Weeks Disposition Disposition (needs filled in before D/C Order can be placed): Home, Self Care Charges/Coding Visit Charges Inpatient E&M: 23917 Disch Hosp >30min 11/02/24 1132 Cosigner Signature (if applicable): CC: Dr. Himanshu Almaguer DO; Dr. Marlo Pollard DO~ Signed [facility]04-08-2025 [facility] Medical Records Department [address] [place] [address] Discharge Summary 11/02/24 1124 MR#: [id number] Acct: [id number] Name: MARLO ADAMSON Rep #: [id number] : 1960 64 From: Himanshu Almaguer DO PCP: Dr. Marlo Pollard DO Status:ADM IN Location: [place] [address] Providers Date of Admission: 10/31/24 Primary Care Physician: Dr. Marlo Pollard DO Consultations 10/31/24 04:11 Consult: Nephrology Routine Consulting Provider: Ying Shirley Reason for Consult: ESRD on HD EMERGENT Consult: No MD Notified: Yes Date Notified: 10/31/24 Time Notified: 03:50 Method of Notification: Answering Service Reason For Visit: HYPOXIA, PNA Diagnosis Discharge Diagnosis (1) Pneumonia: Status: Acute Code(s): J18.9 - Pneumonia, unspecified organism Plan: MRSA pneumonia Sputum culture +MRSA. DC with linezolid Plan Diarrhea: Cdiff and enteric panel negative. Fecal leukocytes +. ESRD: nephrology consult. Dialysis-dependent. Pt had issue with dialysis line today. Harrah that the line clotted off due to no heparinization. No need for fistulagram at this time. DW Dr. Shirley who is going to try to get him heparin for home dialysis. He may also try to get him a fistulagram as outpt. VTE prophylaxis: SQ heparin. Medications at Discharge Home Medications aspirin 81 mg tablet,delayed release 81 mg PO DAILY 05/29/21 cholecalciferol (vitamin D3) 125 mcg (5,000 unit) capsule 125 mcg PO DAILY 05/29/21 metoprolol tartrate 25 mg tablet 25 mg PO BID 05/29/21 pravastatin 40 mg tablet 40 mg PO QHS 05/29/21 Hydrocortisone 2.5%/lidocaine 5% suppository (cmpd) (hydrocortisone 2.5%/lidocaine 5% suppository (compound)) #30 ea 10/13/24 hydrocortisone 2.5 % topical cream with perineal applicator (Proctozone-HC) 1 applic IA QD-BID PRN hemorrhoids #30 grams 10/13/24 oxycodone 10 mg tablet 10 mg PO TID PRN pain 10/13/24 vitamin B complex-vitamin C-folic acid 0.8 mg tablet (Renal-Svetlana) 1 tab PO QDAY 10/13/24 peg 3350-electrolytes 236 gram-22.74 gram-6.74 gram-5.86 gram solution 4,000 ml PO ONCE #4,000 mL 10/27/24 calcitriol 0.25 mcg capsule 0.25 mcg PO DAILY 10/31/24 lidocaine-prilocaine 2.5 %-2.5 % topical cream topical DAILY 10/31/24 guaifenesin 600 mg tablet, extended release 12 hr (Mucinex) 600 mg PO BID #10 tabs 11/02/24 linezolid 600 mg tablet 600 mg PO Q12H #10 tabs 11/02/24 Hospital Course Operations None Procedures Dialysis Summary of Care Provided Minutes Spent on Discharge: 32 Hospital Course: Pt presents with SOB. Found to have pneumonia, and sputum culture positive for MRSA. He was on vancomycin. He did receive dialysis here and his line clotted off. It had clotted off x2 at home (he does home dialysis). Seen by nephrology who advised running heparin with his dialysis and have arranged for it as outpt. Pt to be discharged with linezolid. Medical Records Data Medical Nutrition Assessment Dietitian: Malnutrition Criteria Met Start: 10/31/24 17:11 Freq: Status: Active Protocol: Document 10/31/24 17:11 RMA (Rec: 10/31/24 17:11 RMA [id number]) Nutrition Malnutrition Evidence of Yes Malnutrition Exists Malnutrition (severe Acute Illness/Injury ): Evidenced By Suboptimal Energy Intake (Severe),Weight Loss (Severe) Clinical Problem Acute Disease or Injury Related Malnutrition Etiology severe pro-damion malnutrition in the context of acute illness related to inadequate oral intake and inadequate energy intake Signs/Symptoms as evidenced by 5-6% unintentional weight loss x past 1 month and PO meeting less than 75% of estimated nutrition needs x 1 month; BMI 22.2 Status Active Problem Recommendation Dietitian Will continue cardiac diet for now and restrict diet Recommendations/ for renal parameters as needed. Changes Will add 120mL PO Nepro 3 times per day w/ meals. Liberalize diet as needed to optimize oral intake. Weight / BMI Weight Weight: 70.6 kg Body Mass Index (BMI) 22.2 ABG / Lab / Microbiology Data 11/02/24 07:12 11/02/24 07:12 Laboratory: Laboratory Results - last 24 hr 11/02/24 07:12: WBC 7.6, RBC 3.99 L, Hgb 12.4 L, Hct 36.8 L, MCV 92.2, MCH 31.1, MCHC 33.7, RDW Std Deviation 46.2 H, RDW Coeff of Fito 13.6, Plt Count 218, MPV 9.4, Immature Gran % (Auto) 2.100 H, N eut % (Auto) 73.4 H, Lymph % (Auto) 12.6 L, Curry % (Auto) 9.8, Eos % (Auto) 1.7, Baso % (Auto) 0.4, Absolute Neuts (auto) 5.6, Absolute Lymphs (auto) 0.96, Nucleated RBC % 0, Sodium 134, Potassium 3.8, Chloride 98, Carbon Dioxide 20.8 L, Anion Gap 14, BUN 41 H, Creatinine 5.94 H, Estim Creat Clear Calc 12.55 L, Est GFR (MDRD) Non-Af 10 L, BUN/Creatinine Ratio 7.0 L, Glucose 88, Calcium 8.9 Microbiology: Microbiology 10/31/24 12:05 Sputum, Expectorated/Coughed Gram Stain - Final 10/31/24 12:05 Sputum, Expectorated/Coughed Resp (more content not included)... [facility]04-08-2025 Progress note [facility] Medical Records Department [address] [place] [address] Progress Note - Hospitalist 11/02/24 0711 MR#: [id number] Acct: [id number] Name: MARLO ADAMSON Rep #:[id number] : 1960 64 From: Himanshu Almaguer DO PCP: Dr. Marlo Pollard, DO Status:ADM IN Location: [place] [address] Reason for Visit Reason for Visit: Diagnoses Pneumonia, unspecified organism (10/31/24) Hypoxemia (10/31/24) Other specified health status (10/31/24) Subjective Subjective Feels good. No new issues. Objective Data Objective Data Vital Signs: Vital Signs Temp Pulse Resp BP Pulse Ox O2 Del Method O2 Flow Rate 36.8 C 81 18 126/72 H 94 Nasal Cannula 2 11/02/24 03:40 11/02/24 03:40 11/02/24 03:40 11/02/24 03:40 11/02/24 03:40 11/02/24 03:44 11/02/24 03:44 Oxygen Flow Rate (L/min) 2 Oxygen Delivery Method Nasal Cannula Weight: 70.6 kg Body Mass Index (BMI) 22.2 Intake & Output: Intake and Output for Last 24 Hours 10/31/24 11/01/24 11/02/24 23:59 23:59 23:59 Intake Total 250 / 550 1685 / 1685 400 / 400 Output Total 0 / 0 200 / 200 200 / 200 Balance 250 / 550 1485 / 1485 200 / 200 Medical Nutrition Assessment Dietitian: Malnutrition Criteria Met Start: 10/31/24 17:11 Freq: Status: Active Protocol: Document 10/31/24 17:11 RMA (Rec: 10/31/24 17:11 RMA [id number]) Nutrition Malnutrition Evidence of Yes Malnutrition Exists Malnutrition (severe Acute Illness/Injury ): Evidenced By Suboptimal Energy Intake (Severe),Weight Loss (Severe) Clinical Problem Acute Disease or Injury Related Malnutrition Etiology severe pro-damion malnutrition in the context of acute illness related to inadequate oral intake and inadequate energy intake Signs/Symptoms as evidenced by ~5-6% unintentional weight loss x past 1 month and PO meeting less than 75% of estimated nutrition needs x 1 month; BMI 22.2 Status Active Problem Recommendation Dietitian Will continue cardiac diet for now and restrict diet Recommendations/ for renal parameters as needed. Changes Will add 120mL PO Nepro 3 times per day w/ meals. Liberalize diet as needed to optimize oral intake. Lab / Micro Data 11/02/24 07:12 11/02/24 07:12 Micro: Microbiology 11/01/24 03:22 Stool Stool Lactoferrin - Final 11/01/24 03:22 Stool Enteric Bacteriology - Final 11/01/24 03:22 Stool Stool Occult Blood (PAULIE) - Final 11/01/24 03:22 Stool Clostridioides difficile (PCR) - Final 10/31/24 12:05 Sputum, Expectorated/Coughed Gram Stain - Final 10/31/24 12:05 Urine, Clean Catch Legionella Antigen - Final 10/31/24 12:05 Urine, Clean Catch Streptococcus pneumoniae Antigen (M - Final 10/31/24 04:50 Nasal Secretion MRSA (PCR) - Final Meth. resistant Staph. aureus 10/31/24 04:41 Mucosa - Nasopharyngeal Respiratory Panel (PCR) - Final Physical Exam Const alert and no apparent distress HEENT head/scalp atraumatic and moist oral mucous membranes Resp normal respiratory effort, no retractions, no use of accessory muscles and clearto auscultation bilaterally Cardio regular rate, regular rhythm, S1 normal heart sound and S2 normal heart sound GI normal to inspection, nondistended, normoactive bowel sounds, soft to palpation and non-tender Assessment & Plan Assessment/Plan (1) Pneumonia: PLAN: MRSA pneumonia Sputum culture +MRSA. DC with linezolid PLAN: Plan Diarrhea: Cdiff and enteric panel negative. Fecal leukocytes +. ESRD: nephrology consult. Dialysis-dependent. Pt had issue with dialysis line today. [place] that the line clotted off due to no heparinization. No need for fistulagram at this time. DW Dr. Shirley who is going to try to get him heparin for home dialysis. He may also try to get him a fistulagram as outpt. VTE prophylaxis: SQ heparin. 11/02/24 1124 Cosigner Signature (if applicable): CC: ~ Signed [facility]04-08-2025 Consult note [facility] Medical Records Department [address] [place] [address] Consultation - Nephrology 11/01/24 1205 MR#: [id number] Acct: [id number] Name: MARLO ADAMSON Rep #:[id number] : 1960 64 From: Maranda mcmahan SPECIAL EDUCATION ADMINISTRATOR-C PCP: Dr. Marlo Pollard, DO Status:ADM IN Location: [facility] NP930-6 Assessment & Plan Assessment/Plan (1) ESRD (end stage renal disease): PLAN: Plan Patient has history of ESRD secondary to polycystic kidney disease and is on home hemodialysis 4 days weekly via AVF. Patient's last hemodialysis session was on Friday however this was partial session due to lines clotting during treatment. Patient will undergo hemodialysis today. Discussed fluidremoval with patient, patient feels shortness of breath is related to pneumonia and feels he does not have any extra fluid on therefore asking no fluid removal withdialysis today. On exam patient does appear to be near euvolemic, he is now on room air. Likely EDW will be lowered as patient has lostbody weight. Blood pressure is acceptable. Hemoglobin acceptable, at goal and does not need JACKSON with dialysis today. Patient is on IV antibiotics, ceftriaxone and receiving breathing treatments. Further orders forthcoming as hospitalization evolves. Assessment and plan reviewed with Dr. Shirley. HPI Consult Data Date of Consult: 11/01/24 HPI Narrative HPI Narrative: MARLO ADAMSON, is a 64 M who presented to the emergency room early yesterday morning with complaints of shortness of breath, cough and congestion. Admitted for pneumonia. Patient was admitted for acute hypoxic respiratory failure secondary to pneumonia. Nephrology consulted as patient has history of ESRD on home hemodialysis. Patient was seen in dialysis this morning, reports feeling better. His oxygenation improved and he is currently on room air. Patient denies any nausea or vomiting, he does state appetite was poor and he has lost weight. [facility] Medical History (Updated 11/01/24 @ 12:07 by Maranda Bustamante NP-Darya) Tobacco use ESRD on hemodialysis (~10/31/24) Wears dentures Marijuana use Polycystic renal disease DVT (deep venous thrombosis) High cholesterol History of echocardiogram Cardiology follow-up encounter Hypertension Hemorrhoids, internal GERD (gastroesophageal reflux disease) Myocardial infarction HTN (hypertension) Osteoarthritis Anxiety and depression CAD (coronary artery disease) Home Medications ?Medication ?Instructions ?Recorded ?Last Taken ?Type aspirin 81 mg tablet,delayed 81 mg PO DAILY 05/29/21 U nknown History release cholecalciferol (vitamin D3) 125 125 mcg PO DAILY 09/17 Unknown History mcg (5,000 unit) capsule metoprolol tartrate 25 mg tablet 25 mg PO BID 05/29/21 Unknown History ondansetron 4 mg disintegrating 4 mg PO BID PRN Nausea 05/29/21 Unknown History tablet pravastatin 40 mg tablet 40 mg PO QHS 05/29/21 Unknow n History Hydrocortisone 2.5%/lidocaine 5% #30 ea 10/13/24 Unkno wn Rx suppository (cmpd) (hydrocortisone 2.5%/lidocaine 5% suppository (compound)) hydrocortisone 2.5 % topical cream 1 applic IA QD-BID PRN hemorrhoids 10/13/24 Unknown Rx with perineal applicator #30 grams (Proctozone-HC) oxycodone 10 mg tablet 10 mg PO TID PRN pain Unknown History vitamin B complex-vitamin C-folic 1 tab PO QDAY Unknown History acid 0.8 mg tablet (Renal-Svetlana) peg 3350-electrolytes 236 4,000 ml PO ONCE #4,000 mL 0 10/27/24 Unknown Rx gram-22.74 gram-6.74 gram-5.86 gram solution calcitriol 0.25 mcg capsule 0.25 mcg PO DAILY 10/31/24 Unknown History doxycycline monohydrate 100 mg 100 mg PO BID 10/31/24 Unknown History tablet lidocaine-prilocaine 2.5 %-2.5 % topical DAILY 5 Unknown History topical cream Allergy/AdvReac Type Severity Reaction Status Date / Time atorvastatin (From Lipitor) AdvReac MUSCLE ACHE Verified 10/13/24 14:15 Family History (Updated 10/31/24 @ 04:[address] Elidia Cunningham MD) Father Cancer abdominal tumor--unsure type Brother Heart disease Sister Brain mass Mother Brain aneurysm Surgical History History of arteriovenostomy for renal dialysis (~05/2021) Hx of left knee surgery History of esophagogastroduodenoscopy (EGD) Hx of cystoscopy History of cardiac catheterization History of coronary artery bypass graft History of heart artery stent Social History (Updated 10/31/24 @ 04:[address] Elidia Cunningham MD) household members: none Smoking Status: Current every day smoker tobacco type: cigarettes Smoking packsper day: 1 Smoking cigarettes per day: 20.0 quit status: considering quitting alcohol intake: former substance use type: does not use ROS ROS Narrative As in HPI Physical Exam Narrative Alert and oriented x 3, no apparent distress S1, S2, RRR Lungs sound diminished. On room air. No rales or rhonchi Abdomen soft, nontender No edema Left forearm AV fistula accessed for hemodialysis Medical Records Data Medical Nutrition Assessment Dietitian: Malnutrition Criteria Met Start: 10/31/24 17:11 Freq: Status: Active Protocol: Document 10/31/24 17:11 RMA (Rec: 10/31/24 17:11 RMA [id number]) Nutrition Malnutrition Evidence of Yes Malnutrition Exists Malnutrition (severe Acute Illness/Injury ): Evidenced By Suboptimal Energy Intake (Severe),Weight Loss (Severe) Clinical Problem Acute Disease or Injury Related Malnutrition Etiology severe pro-damion malnutrition in the context of acute illness related to inadequate oral intake and inadequate energy intake Signs/Symptoms as evidenced by ~5-6% unintentional weight loss x past 1 month and PO meeting less than 75% of estimated nutrition needs x 1 month; BMI 22.2 Status Active Problem Recommendation Dietitian Will continue cardiac diet for now and restrict diet Recommendations/ for renal parameters as needed. Changes Will add 120mL PO Nepro 3 times per day w/ meals. Liberalize diet as needed to optimize oral intake. Lab / Micro Data 11/01/24 04:20 11/01/24 04:20 Labs: Laboratory Results - last 24 hr 11/01/24 04:20: WBC 9.9, RBC 4.14 L, Hgb 13.1, Hct 37.4 L, MCV 90.3, MCH 31.6, MCHC 35.0, RDW Std Deviation 45.1 H, RDW Coeff of Fito 13.5, Plt Count 188, MPV 9.6, Immature Gran % (Auto) 1.000 H, Neut% (Auto) 78.8 H, Lymph % (Auto) 11.3 L, Curry % (Auto) 7.5, Eos % (Auto) 1.1, Baso % (Auto) 0.3, Absolute Neuts (auto) 7.8 H, Absolute Lymphs (auto) 1.12, Nucleated RBC % 0, Sodium 132 L, Potassium 3.4, Chloride 92 L, Carbon Dioxide 21.9, Anion Gap 18 H, BUN 63 H, Creatinine 7.59 H*, Estim Creat Clear Calc 9.82 L*, Est GFR (MDRD) Non-Af 7 L, BUN/Creatinine Ratio 8.2 L, Glucose 101 H, Calcium 8.9 Micro: Microbiology 11/01/24 03:22 Stool Clostridioides difficile (PCR) - Final 11/01/24 03:22 Stool Stool Lactoferrin - Final 11/01/24 03:22 Stool Stool Occult Blood (PAULIE) - Final 10/31/24 12:05 Sputum, Expectorated/Coughed Gram Stain - Final 10/31/24 12:05 Urine, Clean Catch Legionella Antigen - Final 10/31/24 12:05 Urine, Clean Catch Streptococcus pneumoniae Antigen (M - Final 10/31/24 04:50 Nasal Secretion MRSA (PCR) - Final Meth. resistant Staph. aureus 10/31/24 04:41 Mucosa - Nasopharyngeal Respiratory Panel (PCR) - Final 11/01/24 1211 Cosigner Signature (if applicable): 11/02/24 1100 CC: Dr. Marlo Pollard, DO~ Signed [facility]04-07-2025 Consult note Author Fritz Moya [facility] Note Date/Time November 01, 2024 3:19 pm [facility] Medical Records Department [address] [facility] [place] [address] Pharmacokinetic/Renal -Consult 11/01/24 1310 MR#: [id number] Acct: [id number] Name: MARLO ADAMSON Rodrigo Rep #:[id number] : 1960 64 From: Fritz Moya PCP: Dr. Marlo Pollard, DO Status:ADM IN Y Location: [place] [address] Consult Antibiotic Management Pharmacy has been consulted to manage selected antibiotic: Vancomycin Type of Intervention Type of Consult: New start Suspected Infection Suspected Infection: Pneumonia Prior Doses of Antibiotics Prior Doses of Antibiotics Received/Current Regimen: Vancomycin 1750 mg IV x 1 given 11/01/24 @ 1249 Labs Labs: Sodium 132 mmol/L (133-145) L 11/01/24 04:20 Potassium 3.4 mmol/L (3.3-5.1) 11/01/24 04:20 Chloride 92 mmol/L (98-108) L 11/01/24 04:20 Carbon Dioxide 21.9 mmol/L (21.0-32.0) 11/01/24 04:20 Anion Gap 18 (5-15) H 11/01/24 04:20 BUN 63 mg/dL (4-19) H 11/01/24 04:20 Creatinine 7.59 mg/dL (0.70-1.20) H* 11/01/24 04:20 Est GFR (MDRD) Non-Af 7 (>60) L 11/01/24 04:20 BUN/Creatinine Ratio 8.2 RATIO (10-20) L 11/01/24 04:20 Glucose 101 mg/dL (70-99) H 11/01/24 04:20 Microbiology Microbiology: Microbiology 11/01/24 03:22 Stool Stool Lactoferrin - Final 11/01/24 03:22 Stool Enteric Bacteriology - Final 11/01/24 03:22 Stool Stool Occult Blood (PAULIE) - Final 11/01/24 03:22 Stool Clostridioides difficile (PCR) - Final 10/31/24 12:05 Sputum, Expectorated/Coughed Gram Stain - Final 10/31/24 12:05 Urine, Clean Catch Legionella Antigen - Final 10/31/24 12:05 Urine, Clean Catch Streptococcus pneumoniae Antigen (M - Final 10/31/24 04:50 Nasal Secretion MRSA (PCR) - Final Meth. resistant Staph. aureus 10/31/24 04:41 Mucosa - Nasopharyngeal Respiratory Panel (PCR) - Final Dosing Weight Weight used for dosin kg Estimated Creatinine Clearance Estimated Creatinine Clearance: ESRD on HD Goal Trough Goal Trough: 15-20 mcg/mL Pharmacy Plan for Drug Dosing Pharmacy Plan for Drug Dosing: Vancomycin 1750 mg IV x 1, plan for 500 mg after next HD session (possibly Friday pending HD plan), then tentatively trough prior to HD on Friday Pharmacy Service will continue to monitor and adjust dosing as required. Follow-Up Labs Follow-Up Labs: Trough: Vancomycin Date/Time Labs Ordered Labs to be done on [date and time ordered]: pending HD schedule, 11/05 in AM? 11/01/24 1312 <Electronically signed by Fritz simon> Date _ Fritz Moya 11/01/24 1519 <Electronically signed by Himanshu Almaguer DO> Cosigner Signature (if applicable): Date Himanshu Almaguer DO CC: ~ Signed [facility] Work Phone: [phone] 848-614404-07-2025 Progress note Author Himanshu Almaguer [facility] Note Date/Time November 01, 2024 1:51 pm [facility] Medical Records Department [address] [place] [address] Progress Note - Hospitalist 11/01/24 0750 MR#: [id number] Acct: [id number] Name: MARLO ADAMSON Rep #:[id number] : 1960 64 From: Himanshu Almaguer DO PCP: Dr. Marlo Pollard, DO Status:[facility]M [facility] Reason for Visit Reason for Visit: Diagnoses Pneumonia, unspecified organism (10/31/24) Hypoxemia (10/31/24) Other specified health status (10/31/24) Subjective Subjective Dialysis line clotted off this AM on dialysis. Happened twice while on home dialysis. Objective Data Objective Data Vital Signs: Vital Signs Temp Pulse Resp BP Pulse Ox O2 Del Method O2 Flow Rate 36.6 C 78 20 H 122/72 H 98 Nasal Cannula 4 11/01/24 03:02 11/01/24 03:02 11/01/24 03:02 11/01/24 03:02 11/01/24 03:02 11/01/24 03:08 11/01/24 03:08 Oxygen Flow Rate (L/min) 4 Oxygen Delivery Method Nasal Cannula Weight: 70.6 kg Body Mass Index (BMI) 22.2 Intake & Output: Intake and Output for Last 24 Hours 10/30/24 10/31/24 11/01/24 23:59 23:59 23:59 Intake Total 250 / 550 500 / 500 Output Total 0 / 0 Balance 250 / 550 500 / 500 Medical Nutrition Assessment Dietitian: Malnutrition Criteria Met Start: 10/31/24 17:11 Freq: Status: Active Protocol: Document 10/31/24 17:11 RMA (Rec: 10/31/24 17:11 RMA [id number]) Nutrition Malnutrition Evidence of Yes Malnutrition Exists Malnutrition (severe Acute Illness/Injury ): Evidenced By Suboptimal Energy Intake (Severe),Weight Loss (Severe) Clinical Problem Acute Disease or Injury Related Malnutrition Etiology severe pro-damion malnutrition in the context of acute illness related to inadequate oral intake and inadequate energy intake Signs/Symptoms as evidenced by ~5-6% unintentional weight loss x past 1 month and PO meeting less than 75% of estimated nutrition needs x 1 month; BMI 22.2 Status Active Problem Recommendation Dietitian Will continue cardiac diet for now and restrict diet Recommendations/ for renal parameters as needed. Changes Will add 120mL PO Nepro 3 times per day w/ meals. Liberalize diet as needed to optimize oral intake. Lab / Micro Data 11/01/24 04:20 11/01/24 04:20 Labs: Laboratory Results - last 24 hr 10/31/24 06:55: WBC 13.8 H, RBC 4.34 L, Hgb 13.5, Hct 39.0 L, MCV 89.9, MCH 31.1, MCHC 34.6, RDW Std Deviation 44.4 H, RDW Coeff of Fito 13.4, Plt Count 186,MPV 9.6, Immature Gran % (Auto) 1.200 H, Neut % (Auto) 84.6 H, Lymph % (Auto) 6.7 L, Curry % (Auto) 7.3, Eos % (Auto) 0.1, Baso % (Auto) 0.1, Absolute Neuts (auto) 11.7 H, Absolute Lymphs (auto) 0.93, Nucleated RBC % 0, Sodium 132 L, Potassium 3.2 L, Chloride 90 L, Carbon Dioxide 23.9, Anion Gap 18 H, BUN 52 H, Creatinine 6.59 H, Estim Creat Clear Calc 11.26 L, Est GFR (MDRD) Non-Af 9 L, BUN/Creatinine Ratio 7.9 L, Glucose 113 H, Calcium 9.0, Total Bilirubin 0.83, AST24, ALT 22, Alkaline Phosphatase 67, Total Protein 6.5, Albumin 3.2 L, Globulin 3.3, Albumin/Globulin Ratio 1.0 11/01/24 04:20: WBC 9.9, RBC 4.14 L, Hgb 13.1, Hct 37.4 L, MCV 90.3, MCH 31.6, MCHC 35.0, RDW Std Deviation 45.1 H, RDW Coeff of Fito 13.5, Plt Count 188, MPV 9.6, Immature Gran % (Auto) 1.000 H, Neut % (Auto) 78.8 H, Lymph % (Auto) 11.3 L, Curry % (Auto) 7.5, Eos % (Auto) 1.1, Baso % (Auto) 0.3, Absolute Neuts (auto) 7.8 H, Absolute Lymphs (auto) 1.12, Nucleated RBC % 0, Sodium 132 L, Potassium 3.4, Chloride 92 L, Carbon Dioxide 21.9, Anion Gap 18 H, BUN 63 H, Creatinine 7.59 H*, Estim Creat Clear Calc 9.82 L*, Est GFR (MDRD) Non-Af 7 L, BUN/Creatinine Ratio 8.2 L, Glucose 101 H, Calcium 8.9 Micro: Microbiology 10/31/24 12:05 Sputum, Expectorated/Coughed Gram Stain - Final 10/31/24 12:05 Urine, Clean Catch Legionella Antigen - Final 10/31/24 12:05 Urine, Clean Catch Streptococcus pneumoniae Antigen (M - Final 10/31/24 04:50 Nasal Secretion MRSA (PCR) - Final Meth. resistant Staph. aureus 10/31/24 04:41 Mucosa - Nasopharyngeal Respiratory Panel (PCR) - Final Physical Exam Const alert and no apparent distress HEENT head/scalp atraumatic and moist oral mucous membranes Resp normal respiratory effort, no retractions, no use of accessory muscles and clearto auscultation bilaterally Cardio regular rate, regular rhythm, S1 normal heart sound and S2 normal heart sound GI normal to inspection, nondistended, normoactive bowel sounds, soft to palpation,non-tender and non-distended Extremity normal to inspection Extremity Narrative: palpable and audible thrill in LUE fisutula. Assessment & Plan Assessment/Plan (1) Pneumonia: PLAN: SCx + MRSA. Start vancomycin (dc doxycycline) PLAN: Plan Diarrhea: stool studies pending ESRD: nephrology consult. Dialysis-dependent. Pt had issue with dialysis line today. [place] that the line clotted off due to no heparinization. No need for fistulagram at this time. VTE prophylaxis: SQ heparin. Charges/Coding Visit Charges Inpatient E&M: 11782 Subs Hosp L2 11/01/24 1354 <Electronically signed by Himanshu Almaguer DO> Cosigner Signature (if applicable): CC: ~ Signed [facility] Work Phone: 1([phone] 430-113904-07-2025 Consult note [facility] Medical Records Department [address] [place] [address] Pharmacokinetic/Renal -Consult 11/01/24 1310 MR#: [id number] Acct: [id number] Name: MARLO ADAMSON Rep #:[id number] : 1960 64 From: Fritz Moya PCP: Dr. Marlo Pollard, DO Status:ADM IN Y Location: [place] [address]1 Consult Antibiotic Management Pharmacy has been consulted to manage selected antibiotic: Vancomycin Type of Intervention Type of Consult: New start Suspected Infection Suspected Infection: Pneumonia Prior Doses of Antibiotics Prior Doses of Antibiotics Received/Current Regimen: Vancomycin 1750 mg IV x 1 given 11/01/24 @ 1249 Labs Labs: Sodium 132 mmol/L (133-145) L 11/01/24 04:20 Potassium 3.4 mmol/L (3.3-5.1) 11/01/24 04:20 Chloride 92 mmol/L (98-108) L 11/01/24 04:20 Carbon Dioxide 21.9 mmol/L (21.0-32.0) 11/01/24 04:20 Anion Gap 18 (5-15) H 11/01/24 04:20 BUN 63 mg/dL (4-19) H 11/01/24 04:20 Creatinine 7.59 mg/dL (0.70-1.20) H* 11/01/24 04:20 Est GFR (MDRD) Non-Af 7 (>60) L 11/01/24 04:20 BUN/Creatinine Ratio 8.2 RATIO (10-20) L 11/01/24 04:20 Glucose 101 mg/dL (70-99) H 11/01/24 04:20 Microbiology Microbiology: Microbiology 11/01/24 03:22 Stool Stool Lactoferrin - Final 11/01/24 03:22 Stool Enteric Bacteriology - Final 11/01/24 03:22 Stool Stool Occult Blood (PAULIE) - Final 11/01/24 03:22 Stool Clostridioides difficile (PCR) - Final 10/31/24 12:05 Sputum, Expectorated/Coughed Gram Stain - Final 10/31/24 12:05 Urine, Clean Catch Legionella Antigen - Final 10/31/24 12:05 Urine, Clean Catch Streptococcus pneumoniae Antigen (M - Final 10/31/24 04:50 Nasal Secretion MRSA (PCR) - Final Meth. resistant Staph. aureus 10/31/24 04:41 Mucosa - Nasopharyngeal Respiratory Panel (PCR) - Final Dosing Weight Weight used for dosin kg Estimated Creatinine Clearance Estimated Creatinine Clearance: ESRD on HD Goal Trough Goal Trough: 15-20 mcg/mL Pharmacy Plan for Drug Dosing Pharmacy Plan for Drug Dosing: Vancomycin 1750 mg IV x 1, plan for 500 mg after next HD session (possibly Friday pending HD plan), then tentatively trough prior to HD on Friday Pharmacy Service will continue to monitor and adjust dosing as required. Follow-Up Labs Follow-Up Labs: Trough: Vancomycin Date/Time Labs Ordered Labs to be done on [date and time ordered]: pending HD schedule, 11/05 in AM? 11/01/24 1312 r> Date _ Fritz Moya 11/01/24 1519 DO> Cosigner Signature (if applicable): Date Himanshu Almaguer DO CC: ~ Signed [facility]04-07-2025 Progress note [facility] Medical Records Department [address] [place] [address] Progress Note - Hospitalist 11/01/24 0750 MR#: [id number] Acct: [id number] Name: MARLO ADAMSON Rodrigo Rep #:[id number] : 1960 64 From: Himanshu Almaguer DO PCP: Dr. Marlo Pollard, DO Status:ADM IN Location: [place] [address]1 Reason for Visit Reason for Visit: Diagnoses Pneumonia, unspecified organism (10/31/24) Hypoxemia (10/31/24) Other specified health status (10/31/24) Subjective Subjective Dialysis line clotted off this AM on dialysis. Happened twice while on home dialysis. Objective Data Objective Data Vital Signs: Vital Signs Temp Pulse Resp BP Pulse Ox O2 Del Method O2 Flow Rate 36.6 C 78 20 H 122/72 H 98 Nasal Cannula 4 11/01/24 03:02 11/01/24 03:02 11/01/24 03:02 11/01/24 03:02 11/01/24 03:02 11/01/24 03:08 11/01/24 03:08 Oxygen Flow Rate (L/min) 4 Oxygen Delivery Method Nasal Cannula Weight: 70.6 kg Body Mass Index (BMI) 22.2 Intake & Output: Intake and Output for Last 24 Hours 10/30/24 10/31/24 11/01/24 23:59 23:59 23:59 Intake Total 250 / 550 500 / 500 Output Total 0 / 0 Balance 250 / 550 500 / 500 Medical Nutrition Assessment Dietitian: Malnutrition Criteria Met Start: 10/31/24 17:11 Freq: Status: Active Protocol: Document 10/31/24 17:11 RMA (Rec: 10/31/24 17:11 RMA [id number]) Nutrition Malnutrition Evidence of Yes Malnutrition Exists Malnutrition (severe Acute Illness/Injury ): Evidenced By Suboptimal Energy Intake (Severe),Weight Loss (Severe) Clinical Problem Acute Disease or Injury Related Malnutrition Etiology severe pro-damion malnutrition in the context of acute illness related to inadequate oral intake and inadequate energy intake Signs/Symptoms as evidenced by ~5-6% unintentional weight loss x past 1 month and PO meeting less than 75% of estimated nutrition needs x 1 month; BMI 22.2 Status Active Problem Recommendation Dietitian Will continue cardiac diet for now and restrict diet Recommendations/ for renal parameters as needed. Changes Will add 120mL PO Nepro 3 times per day w/ meals. Liberalize diet as needed to optimize oral intake. Lab / Micro Data 11/01/24 04:20 11/01/24 04:20 Labs: Laboratory Results - last 24 hr 10/31/24 06:55: WBC 13.8 H, RBC 4.34 L, Hgb 13.5, Hct 39.0 L, MCV 89.9, MCH 31.1, MCHC 34.6, RDW Std Deviation 44.4 H, RDW Coeff of Fito 13.4, Plt Count 186,MPV 9.6, Immature Gran % (Auto) 1.200 H, Neut % (Auto) 84.6 H, Lymph % (Auto) 6.7 L, Curry % (Auto) 7.3, Eos % (Auto) 0.1, Baso % (Auto) 0.1, Absolute Neuts (auto) 11.7 H, Absolute Lymphs (auto) 0.93, Nucleated RBC % 0, Sodium 132 L, Potassium 3.2 L, Chloride 90 L, Carbon Dioxide 23.9, Anion Gap 18 H, BUN 52 H, Creatinine 6.59 H, Estim Creat Clear Calc 11.26 L, Est GFR (MDRD) Non-Af 9 L, BUN/Creatinine Ratio 7.9 L, Glucose 113 H, Calcium 9.0, Total Bilirubin 0.83, AST24, ALT 22, Alkaline Phosphatase 67, Total Protein 6.5, Albumin 3.2 L, Gl obulin 3.3, Albumin/Globulin Ratio 1.0 11/01/24 04:20: WBC 9.9, RBC 4.14 L, Hgb 13.1, Hct 37.4 L, MCV 90.3, MCH 31.6, MCHC 35.0, RDW Std Deviation 45.1 H, RDW Coeff of Fito 13.5, Plt Count 188, MPV 9.6, Immature Gran % (Auto) 1.000 H, Neut% (Auto) 78.8 H, Lymph % (Auto) 11.3 L, Curry % (Auto) 7.5, Eos % (Auto) 1.1, Baso % (Auto) 0.3, Absolute Neuts (auto) 7.8 H, Absolute Lymphs (auto) 1.12, Nucleated RBC % 0, Sodium 132 L, Potassium 3.4, Chloride 92 L, Carbon Dioxide 21.9, Anion Gap 18 H, BUN 63 H, Creatinine 7.59 H*, Estim Creat Clear Calc 9.82 L*, Est GFR (MDRD) Non-Af 7 L, BUN/Creatinine Ratio 8.2 L, Glucose 101 H, Calcium 8.9 Micro: Microbiology 10/31/24 12:05 Sputum, Expectorated/Coughed Gram Stain - Final 10/31/24 12:05 Urine, Clean Catch Legionella Antigen - Final 10/31/24 12:05 Urine, Clean Catch Streptococcus pneumoniae Antigen (M - Final 10/31/24 04:50 Nasal Secretion MRSA (PCR) - Final Meth. resistant Staph. aureus 10/31/24 04:41 Mucosa - Nasopharyngeal Respiratory Panel (PCR) - Final Physical Exam Const alert and no apparent distress HEENT head/scalp atraumatic and moist oral mucous membranes Resp normal respiratory effort, no retractions, no use of accessory muscles and clearto auscultation bilaterally Cardio regular rate, regular rhythm, S1 normal heart sound and S2 normal heart sound GI normal to inspection, nondistended, normoactive bowel sounds, soft to palpation,non-tender and non-distended Extremity normal to inspection Extremity Narrative: palpable and audible thrill in LUE fisutula. Assessment & Plan Assessment/Plan (1) Pneumonia: PLAN: SCx + MRSA. Start vancomycin (dc doxycycline) PLAN: Plan Diarrhea: stool studies pending ESRD: nephrology consult. Dialysis-dependent. Pt had issue with dialysis line today. [place] that the line clotted off due to no heparinization. No need for fistulagram at this time. VTE prophylaxis: SQ heparin. Charges/Coding Visit Charges Inpatient E&M: 03971 Subs Hosp L2 11/01/24 1351 Cosigner Signature (if applicable): CC: ~ Signed [facility]04-06-2025 Progress note Author Chirag Lucero [facility] Note Date/Time October 31, 2024 7:03 pm [facility] Medical Records Department [address] [place] [address] Progress Note - Hospitalist 10/31/24 1902 MR#: [id number] Acct: [id number] Name: MARLO ADAMSON Rep #:[id number] : 1960 64 From: Chirag Dixon PCP: Dr. Marlo Pollard, DO Status:ADM IN Location: [place] [address] Hospitalist Note 64-year-old gentleman was admitted with productive cough, congestion, SOB for last 5 days. His PCP started on doxycycline and started feeling better. But hemissed 4 days of dialysis and then dialyzed last 2 days before admission and found problem and blood return, blood loss, generalized weakness and feeling short of breath. Patient wears no oxygen at home. Pulse ox was 85% at rest and 90% on ambulationin ED patient. The patient has home dialysis 4 days a week and usually does not DO on weekends,last treatment was three quarters of dialysis yesterday. Follows Chest x-ray initially reviewed and shows haziness and underventilated in peripheral lung carballo and reported as finding concerning for RML pneumonia. Mild elevation of right hemidiaphragm Physical exam Lungs: Air entry diminished bilaterally and in lung bases. Bilateral basilar crepitations Heart: S1-S2 regular. Systolic murmur present Extremities: No significant leg swelling. Left forearm, AV fistula with palpable thrill and bruit MRSA nasal screen positive. Patient on IV Zosyn. Doxycycline added for MRSA positive nasal screen. Denies prior history of MRSA. Sterile Processing Technologist consulted. On 3 L of oxygen. Did not have dialysis nurse today but I do not see an urgent need of dialysis today can be dialyzed early in the morning. Discussed with Dr. Shirley Visit Charges Inpatient E&M: 71832 Subs Hosp L1 10/31/24 1228 <Electronically signed by Chirag Lucero MD> Cosigner Signature (if applicable): CC: ~ Signed ADDENDUM by Dr. Chirag Lucero MD on 10/31/24 at 1229 Addendum Labs reviewed mild hyponatremia, hypokalemia. Labs consistent with kidney failure/ESRD due to polycystic kidney disease. BUN 52 creatinine 6.59. 10/31/24 1229<Electronically signed by Chirag Lucero MD> Cosigner Signature (if applicable): cc: ~* Signed ADDENDUM by Dr. Chirag Lucero MD on 10/31/24 at 1903 Addendum Nurse informed me that the patient is having foul smelling explosive diarrhea for past several days. Stool c diff, enteric pathogen panel, stool for occult blood and lactoferrin ordered. Lactobacillus ordered. Antibiotic narrowed from Zosyn to Ceftriaxone. 10/31/241902<Electronically signed by Chirag Lucero MD> Cosigner Signature (if applicable): cc: ~* Signed [facility] Work Phone: 1(564) 438-770304-06-2025 Progress note [facility] Medical Records Department [address] [place] [address] Progress Note - Hospitalist 10/31/241901 MR#: [id number] Acct: [id number] Name: MARLO ADAMSON Rep #:[id number] : 1960 64 From: Chirag Dixon PCP: Dr. Marlo Pollard, DO Status:ADM IN Location: [place] [address] Hospitalist Note 64-year-old gentleman was admitted with productive cough, congestion, SOB for last 5 days. His PCP started on doxycycline and started feeling better. But hemissed 4 days of dialysis and then dialyzedlast 2 days before admission and found problem and blood return, blood loss, generalized weakness and feeling short of breath. Patient wears no oxygen at home. Pulse ox was 85% at rest and 90% on ambulationin ED patient. The patient has home dialysis 4 days a week and usually does not DO on weekends,last treatment was three quarters of dialysis yesterday. Follows Chest x-ray initially reviewed and shows haziness and underventilated in peripheral lung carballo andreported as finding concerning for RML pneumonia. Mild elevation of right hemidiaphragm Physical exam Lungs: Air entry diminished bilaterally and in lung bases. Bilateral basilar crepitations Heart: S1-S2 regular. Systolic murmur present Extremities: No significant leg swelling. Left forearm, AV fistula with palpable thrill and bruit MRSA nasal screen positive. Patient on IV Zosyn. Doxycycline added for MRSA positive nasal screen. Denies prior history of MRSA. Sterile Processing Technologist consulted. On 3 L of oxygen. Did not have dialysis nurse today but I do not see an urgent need of dialysis today can be dialyzed early in the morning. Discussed with Dr. Shirley Visit Charges Inpatient E&M: 25462 Subs Hosp L1 10/31/24 1228 Cosigner Signature (if applicable): CC: ~ Signed ADDENDUM by Dr. Chirag Lucero MD on 10/31/24 at 1229 Addendum Labs reviewed mild hyponatremia, hypokalemia. Labs consistent with kidney failure/ESRD due to polycystic kidney disease. BUN 52 creatinine 6.59. 10/31/24 1229 Cosigner Signature (if applicable): cc: ~* Signed ADDENDUM by Dr. Chirag Lucero MD on 10/31/24 at 1903 Addendum Nurse informed me that the patient is having foul smelling explosive diarrhea for past several days. Stool c diff, enteric pathogen panel, stool for occult blood and lactoferrin ordered. Lactobacillus ordered. Antibiotic narrowed from Zosyn to Ceftriaxone. 10/31/24 1903 Cosigner Signature (if applicable): cc: ~* Signed [facility]04-06-2025 Progress note Author Ying Shirley [facility] Note Date/Time October 31, 2024 11:5 6am [facility] Medical Records Department [address] [place] [address] Progress Note 10/31/24 1148 MR#: [id number] Acct: [id number] Name: MARLO ADAMSON Rep #:[id number] : 1960 64 From: Ying alfaro MD PCP: Dr. Marlo Pollard, DO Status:ADM IN Location: [facility] [id number] Progress Note patient is known to me. ESRD on HHD. presented with dyspnea. dw Dr Lucero hospitalist. K is ok. bicarbonate is ok. CXR reviewed. Dr Lucero feels there might be some fluid component to dyspnea. called and left a message with dialysis nurse to see if any staffing available for dialysis run today. he has AVF. currently on 4L nasal cannula as per my discussion. if dyspnea gets worse and no staffing available may need to be transferred out. 10/31/24 1151 <Electronically signed by Ying Shirley MD> Ying Shirley MD Cosigner Signature (if applicable): CC: ~ Signed ADDENDUM by Dr. Ying Shirley MD on 10/31/24 at 1156 Addendum Addendum. 10/31/24 11 55 am. No staffing available for dialysis today. earliest I can arrange dialysis is tomorrow morning 11/01/24. as per my discussion with Dr Lucero patient is currently saturating ok on 4 L of nasal cannula and can probably wait till tomorrow. if any decompensation overnight will need to be transferred out. 10/31/24 1156 <Electronically signed by Ying Savage MD> Date _ Ying Shirley MD Cosigner Signature (if applicable): Date cc: ~* Signed [facility] Work Phone: [phone]) 437-899404-06-2025 Progress note [facility] Medical Records Department [address] [place] [address] Progress Note 10/31/24 1148 MR#: [id number] Acct: [id number] Name: MARLO ADAMSON Rep #:[id number] : 1960 64 From: Ying alfaro MD PCP: Dr. Marlo Pollard, DO Status:ADM IN Location: [place] [address] Progress Note patient is known to me. ESRD on HHD. presented with dyspnea. dw Dr Lucero hospitalist. K is ok. bicarbonate is ok. CXR reviewed. Dr Lucero feels there might be some fluid component to dyspnea. called and left a message with dialysis nurse to see if any staffing available for dialysis run today. he has AVF. currently on 4L nasal cannula as per my discussion. if dyspnea gets worse and no staffing available may need to be transferred out. 10/31/24 1151 Ying Shirley MD Cosigner Signature (if applicable): CC: ~ Signed ADDENDUM by Dr. Ying Shirley MD on 10/31/24 at 1156 Addendum Addendum. 10/31/24 11 55 am. No staffing available for dialysis today. earliest I can arrange dialysis is tomorrow morning 11/01/24. as per my discussion with Dr Lucero patient is currently saturating ok on 4 L of nasal cannula and can probably wait till tomorrow. if any decompensation overnight will need to be transferred out. 10/31/24 1156 delvin CESPEDES> Date _ Ying Shirley MD Cosigner Signature (if applicable): Date cc: ~* Signed [facility]04-06-2025 History and physical note Author Elidia Cunningham [facility] Note Date/Time October 31, 2024 4:10 am [facility] Medical Records Department [address] [place] [address] H&P Exam - Hospitalist 10/31/24 0347 MR#: [id number] Acct: [id number] Name: MARLO ADAMSON Rep #:[id number] : 1960 64 From: Elidia Cunningham MD PCP: Dr. Marlo Pollard, DO Status:[facility] - [facility] General Date of Admission: 10/31/24 Date of Service: 10/31/24 Chief Complaint: Cough, congestion, dyspnea, recent outpatient abx. HPI Narrative The patient is a 64-year-old male with past medical history M w/ PMHx: PCKD w/ ESRD (T-F), CAD s/p PCI, HTN, HLD, GERD, Tobacco use, Hx VTE (DVT) who presents to the [facility] ED on 10/31/24 with congestion, fatigue, malaise, productive cough with worsening dyspnea over the last 5 days with recent outpatient PCP evaluation with initiation on doxycycline which has been taking with some mild improvement over the last couple days however he notes he has been attempting his home dialysis and unfortunately twice now the machine isshut down with his blood in the dialyzer unfortunately not returning the entire amount and has been concerned for worsened anemia prompting eventual ED evaluation. Workup in the ED included T98.9, heart rate 88, BP 144/86, respiratory rate 17, 90% room air-->85% dropped on room air, CBC with WBC 16.4, hemoglobin 14.4, platelet 187 with left shift, BMP with sodium 132, chloride 89,BUN/creatinine 48/6.33, glucose 132, chest x-ray with findings concerning for right middle lobe pneumonia, evidence of prior median sternotomy, mild pulmonaryhyperinflation. In the ED patient ministered IV Zosyn therapy. [facility] Medical History (Updated 10/31/24 @ 04:[address] Elidia Cunningham MD) Tobacco use ESRD on hemodialysis (~10/31/24) Wears dentures Marijuana use Polycystic renal disease DVT (deep venous thrombosis) High cholesterol History of echocardiogram Cardiology follow-up encounter Hypertension Hemorrhoids, internal GERD (gastroesophageal reflux disease) Myocardial infarction HTN (hypertension) Osteoarthritis Anxiety and depression CAD (coronary artery disease) Home Medications ?Medication ?Instructions ?Recorded ?Last Taken ?Type aspirin 81 mg tablet,delayed 81 mg PO DAILY 05/29/21 U nknown History release cholecalciferol (vitamin D3) 125 125 mcg PO DAILY 09/17 Unknown History mcg (5,000 unit) capsule metoprolol tartrate 25 mg tablet 25 mg PO BID 05/29/21 Unknown History ondansetron 4 mg disintegrating 4 mg PO BID PRN Nausea 05/29/21 Unknown History tablet pravastatin 40 mg tablet 40 mg PO QHS 05/29/21 Unknow n History Hydrocortisone 2.5%/lidocaine 5% #30 ea 10/13/24 Unkno wn Rx suppository (cmpd) (hydrocortisone 2.5%/lidocaine 5% suppository (compound)) hydrocortisone 2.5 % topical cream 1 applic IA QD-BID PRN hemorrhoids 10/13/24 Unknown Rx with perineal applicator #30 grams (Proctozone-HC) oxycodone 10 mg tablet 10 mg PO TID PRN pain Unknown History vitamin B complex-vitamin C-folic 1 tab PO QDAY Unknown History acid 0.8 mg tablet (Renal-Svetlana) peg 3350-electrolytes 236 4,000 ml PO ONCE #4,000 mL 0 10/27/24 Unknown Rx gram-22.74 gram-6.74 gram-5.86 gram solution calcitriol 0.25 mcg capsule 0.25 mcg PO DAILY 10/31/24 Unknown History doxycycline monohydrate 100 mg 100 mg PO BID 10/31/24 Unknown History tablet lidocaine-prilocaine 2.5 %-2.5 % topical DAILY 5 Unknown History topical cream Allergy/AdvReac Type Severity Reaction Status Date / Time atorvastatin (From Lipitor) AdvReac MUSCLE ACHE Verified 10/13/24 14:15 Family History (Updated 10/31/24 @ 04:[address] Elidia Cunningham MD) Father Cancer abdominal tumor--unsure type Brother Heart disease Sister Brain mass Mother Brain aneurysm Surgical History History of arteriovenostomy for renal dialysis (~05/2021) Hx of left knee surgery History of esophagogastroduodenoscopy (EGD) Hx of cystoscopy History of cardiac catheterization History of coronary artery bypass graft History of heart artery stent Social History (Updated 10/31/24 @ 04:[address] Elidia Cunningham MD) household members: none Smoking Status: Current every day smoker tobacco type: cigarettes Smoking packsper day: 1 Smoking cigarettes per day: 20.0 quit status: considering quitting alcohol intake: former substance use type: does not use ROS ROS Narrative Admission Review of Systems: CONSTITUTIONAL: No weight loss, fever, chills, + weakness or fatigue. HEENT: + Congestion, rhinorrhea. Eyes: No visual loss, blurred vision, double vision or yellow sclerae. Ears, Nose, Throat: No hearing loss, sneezing, sore throat. SKIN: No rash or itching, lesions, wounds. CARDIOVASCULAR: No chest pain, chest pressure or chest discomfort, palpitations,edema, orthopnea, syncopal events. RESPIRATORY: + shortness of breath, cough with sputum. No wheezing, hemoptysis. GASTROINTESTINAL: + anorexia, nausea. No vomiting or diarrhea, abdominal pain, melena, BRBPR. GENITOURINARY: No dysuria, frequency, urgency or retention. NEUROLOGICAL: No headache, dizziness, syncope, paralysis, ataxia, numbness or tingling in the extremities, focal weakness, change in bowel or bladder control,seizure. MUSCULOSKELETAL: + muscle, back pain, joint pain or stiffness. HEMATOLOGIC: No anemia, bleeding or bruising. LYMPHATICS: No enlarged nodes. No history of splenectomy. PSYCHIATRIC: No history of depression or anxiety. ENDOCRINOLOGIC: No reports of sweating, cold or heat intolerance. No polyuria orpolydipsia. ALLERGIES: No history of asthma, hives, eczema or rhinitis. Vital Signs Vital Signs Vital Signs: 10/31/24 01:58 10/31/24 02:06 10/31/24 02:14 Temperature 98.9 F Temperature Source Oral Pulse Rate 88 Respiratory Rate 17 Respiratory Effort Short of Breath Respiratory Pattern Normal Blood Pressure 144/86 H Blood Pressure Mean 105 Pulse Ox 90 85 Oxygen Delivery Method Room Air Room Air Oxygen Flow Rate (L/min) 10/31/24 03:45 Temperature 98.1 F Temperature Source Oral Pulse Rate 76 Respiratory Rate 16 Respiratory Effort Respiratory Pattern Blood Pressure 146/69 H Blood Pressure Mean 94 Pulse Ox 92 Oxygen Delivery Method Nasal Cannula Oxygen Flow Rate (L/min) 3 Weight Weight: 158 lb 4.67 oz Body Mass Index (BMI) 22.7 Physical Exam Narrative Physical Examination: General: Awake, alert, oriented x 3 and cooperative, seated upright in the ED bed, fatigued, ill-appearing. Skin: Normal color, normal turgor, no icterus, no cyanosis. HEENT: AT/NC, EOMI, PERRLA, MMM, no carotid bruits or JVD noted. Lungs: Diminished, greater bases, mildly decreased effort, no evidence of any distress, despite imaging no appreciated rales, ronchi or wheezing. Heart: Regular rate and rhythm; no gallop, rub audible. Abdomen: Soft, NTTP, ND, hyperactive BS, no appreciated HSM. Extremities: No cyanosis, clubbing, or edema, + left upper extremity with + AVF thrill. Neurological: Patient awake, alert, oriented as noted, cognitive function intact; pupils equally reactive to light and accommodation, cranial nerves grossly normal, moving all 4 extremities, no focal deficits, strength moderatelyglobally decreased Psychiatric: Affect appears flat, fatigued, no acute evidence of depressive or anxiety feelings but does have underlying history. Results Lab / Micro Data 10/31/24 02:12 10/31/24 02:12 Labs: Laboratory Results - last 24 hr 10/31/24 02:12: WBC 16.4 H, RBC 4.57 L, Hgb 14.4, Hct 40.9, MCV 89.5, MCH 31.5, MCHC 35.2, RDW Std Deviation 44.1 H, RDW Coeff of Fito 13.5, Plt Count 197, MPV 9.7, Immature Gran % (Auto) 1.500 H, Neut % (Auto) 85.8 H, Lymph % (Auto) 5.3 L,Curry % (Auto) 7.1, Eos % (Auto) 0.1, Baso % (Auto) 0.2, Absolute Neuts (auto) 14.1 H, Absolute Lymphs (auto) 0.86, Nucleated RBC % 0, Sodium 132 L, Potassium 3.3, Chloride 89 L, Carbon Dioxide 25.2, Anion Gap 18 H, BUN 48 H, Creatinine 6.33 H, Estim Creat Clear Calc 11.97 L, Est GFR (MDRD) Non-Af 9 L, BUN/Creatinine Ratio 7.6 L, Glucose 132 H, Calcium 9.1 Imaging Radiology Impression Chest X-Ray 10/31/24 02:30 IMPRESSION: Findings concerning for right middle lobe pneumonia. Recommend continued radiologic follow-up to document resolution. Prior median sternotomy. Mild pulmonary hyperinflation. No sizable pleural effusion. Mild elevation right [facility] Assessment & Plan Assessment/Plan (1) Hypoxemia: (2) Pneumonia: (3) Failure of outpatient treatment: PLAN: Plan The patient is a 64-year-old male with past medical history M w/ PMHx: PCKD w/ ESRD, CAD s/p PCI, HTN, HLD, GERD, Tobacco use, Hx VTE (DVT) who presents to [facility] ED on 10/31/24 with congestion, fatigue, malaise, productive cough with worsening dyspnea over the last 5 days with recent outpatient PCP evaluation with initiation on doxycycline which has been taking with some mild improvement over the last couple days however he has had increased dyspnea prompting evaluation. #1. Acute Hypoxia secondary to Acute right middle lobe pneumonia, failed outpatient abx therapy: Will admit to MS, maintain on oxygen with wean as tolerated to room air, continue ATC duonebs, PRN albuterol, maintain on IV Zosyngiven failed outpatient antibiotic therapy w/ MRSA screen requested to be cautious, HOB, IS parameters w/ pending sputum cultures, full respiratory viral panel and urine antigens. #2. PCKD with ESRD: Uses HD at home 4 days weekly, last usage just prior to presentation, following with Dr. Shirley. #3. CAD: Status post PCI and CABG x 4, continue aspirin, statin, metoprolol, not on VALERY inhibitor/ARB. #4. Hypertension: Continue home regimen including metoprolol, PRN hydralazine. #5. Hyperlipidemia: Continue patient on statin therapy. #6. GERD: Per current list not on regimen, will have as needed Mylanta. #7. History of VTE: Chart history with previous DVT, will maintain on chemoprophylaxis as noted. #8. Tobacco Abuse: Encouraged cessation, inpatient consultation per RT, NR if desired. #9. DVT prophylaxis: Heparin. #10. CODE status: Patient does not have healthcare power of consumer attorney or living will in place but he notes that he would want his ex- Nabila Triplett to be his medical decision-maker if necessary. Discussed CODE status at length including difference between FULL code, DNR-CCA and DNR-CC status. Following discussions about the differences in these status, requested Full Code status. [facility] Face to Face Time: 16 minutes. Charges/Coding Visit Charges Inpatient E&M: 71537 Init Hosp L3 Procedures Hospitalists Procedures: 94281 Advncd Care Plan 30 Min 10/31/24 0410 <Electronically signed by Elidia Cunningham MD> Cosigner Signature (if applicable): CC: Dr. Elidia Cunningham MD; Dr. Marlo Pollard DO~ Signed [facility] Work Phone: [phone] Discharge summary Author Jimy Jarquin [facility] Note Date/Time October 31, 2024 3:46 am [facility] Medical Records Department [address] [place] [address] Emergency Department Summary 10/31/24 MR#: [id number] Acct: [id number] Name: MARLO ADAMSON Rep #:[id number] : 1960 64 From: Jimy Jarquin MD PCP: Dr. Marlo Pollard DO Status:REG ER Location: ED HPI History of Present Illness Chief Complaint: General Illness Informant: patient Narrative Narrative: 64-year-old male states he has had productive cough congestion and some dyspnea last 5 days. His doctor started him on doxycycline. He has been taking that. States he started feel a bit better but in the last couple days he has been doing his home hemodialysis, and he has had twice where the machine shuts down when blood gets into the top of my dialyzer and then he cannot return all of the blood in the lines to his body and he loses it. He is concerned that he is feeling more tired now and is asking for his blood counts checked. He presents here at 2 AM for this and has no other complaints. [facility] Medical History Wears dentures Alcohol use Marijuana use History of renal disease Polycystic renal disease DVT (deep venous thrombosis) Easy bruising High cholesterol Back pain Syncope Heartburn Smoker Leg cramps History of pain when walking History of edema History of echocardiogram Cardiology follow-up encounter Hypertension Hemorrhoids, internal GERD (gastroesophageal reflux disease) Myocardial infarction HTN (hypertension) Osteoarthritis Anxiety and depression CAD (coronary artery disease) Chronic progressive renal failure, stage 4 (severe) Acute renal failure Home Medications ?Medication ?Instructions ?Recorded ?Last Taken ?Type aspirin 81 mg tablet,delayed 81 mg PO DAILY 05/29/21 U nknown History release cholecalciferol (vitamin D3) 125 125 mcg PO DAILY 09/17 Unknown History mcg (5,000 unit) capsule metoprolol tartrate 25 mg tablet 25 mg PO BID 05/29/21 Unknown History ondansetron 4 mg disintegrating 4 mg PO BID PRN Nausea 05/29/21 Unknown History tablet pravastatin 40 mg tablet 40 mg PO QHS 05/29/21 Unknow n History Hydrocortisone 2.5%/lidocaine 5% #30 ea 10/13/24 Unkno wn Rx suppository (cmpd) (hydrocortisone 2.5%/lidocaine 5% suppository (compound)) amoxicillin 500 mg-potassium 1 tab PO QDAY #5 tabs Unknown Rx clavulanate 125 mg tablet (Augmentin) hydrocortisone 2.5 % topical cream 1 applic IA QD-BID PRN hemorrhoids 10/13/24 Unknown Rx with perineal applicator #30 grams (Proctozone-HC) oxycodone 10 mg tablet 10 mg PO TID PRN 10/13/24 Un known History vitamin B complex-vitamin C-folic 1 tab PO QDAY Unknown History acid 0.8 mg tablet (Renal-Svetlana) peg 3350-electrolytes 236 4,000 ml PO ONCE #4,000 mL 0 10/27/24 Unknown Rx gram-22.74 gram-6.74 gram-5.86 gram solution Allergy/AdvReac Type Severity Reaction Status Date / Time atorvastatin (From Lipitor) AdvReac MUSCLE ACHE Verified 10/13/24 14:15 Family History (Updated 10/13/24 @ 14:13 by Nabila Parra) Father Cancer abdominal tumor--unsure type Brother Heart disease Sister Brain mass Surgical History History of arteriovenostomy for renal dialysis (~05/2021) Hx of left knee surgery History of esophagogastroduodenoscopy (EGD) Hx of cystoscopy History of cardiac catheterization History of coronary artery bypass graft History of heart artery stent Social History (Updated 10/13/24 @ 14:14 by Nabila Parra) Smoking Status: Current every day smoker tobacco type: cigarettes quit status: quit date established ROS ROS ED Constitutional Constitutional ED: Reports fatigue and malaise; Denies chills or fever(s) Eyes Eyes: Denies change in vision or diplopia ENT ENT ED: Denies rhinorrhea or sore throat Cardiovascular Cardiovascular: Denies chest pain, orthopnea or palpitations Respiratory/Chest Respiratory/Chest: Reports cough and dyspnea on exertion; Denies orthopnea Gastrointestinal Gastrointestinal: Reports other Details: Chronic nausea ; Denies abdominal pain, diarrhea or vomiting Musculoskeletal Musculoskeletal: Denies back pain or neck pain Integumentary Denies abscess or rash Neurologic Neurologic: Denies headache(s), paresthesias or weakness Psychiatric Psychiatric: Denies suicidal thoughts EXAM Physical Exam Const Vital Signs: 10/31/24 01:58 10/31/24 02:06 Temperature 98.9 F Temperature Source Oral Pulse Rate 88 Respiratory Rate 17 Respiratory Effort Short of Breath Respiratory Pattern Normal Blood Pressure 144/86 H Blood Pressure Mean 105 Pulse Ox 90 Oxygen Delivery Method Room Air Positive well nourished and well developed General Appearance ED: well developed and NAD HEENT Reports moist mucous membranes normocephalic and atraumatic Eyes PERRL and EOMs intact bilaterally Neck full ROM and supple Resp normal respiratory effort and clear to auscultation bilaterally Cardio regular rate, regular rhythm and no murmurs Rate: Negative for tachycardic GI non-tender and non-distended Auscultation: normoactive bowel sounds Palpation: soft Back/Spine General Back: other FROM Extremity normal to inspection Extremity Narrative: Good thrill left distal forearm fistula, no bleeding General Extremety ED: Negative for edema, pulses abnormal or tenderness General Extremity: Negative for edema or pulses abnormal Neuro oriented x3, CN's II-XII intact bilaterally and no sensory deficits noted Neuro Narrative: Normal gait Sensorium / Orientation: awake and alert Motor Exam: strength 5/5 throughout Psych Mood & Affect: anxious Skin no rashes or lesions noted and no wounds MDM MDM MDM Narrative Medical decision making narrative: Patient has a leukocytosis, reassured him about his blood counts with a hemoglobin of 14. Chronic renal failure noted. His pulse ox was 90% when he walked in, the rest of the vitals are normal, but while resting his oxygen saturations went down to 85%. He wears no oxygen at home. We put him on oxygenand he said that as a result he was feeling better than he has in the last several days. Two-view chest x-ray shows a right middle lobe pneumonia on my interpretation. Has been on doxycycline for 3 days now. Given his hypoxemia, Ibelieve giving parenteral antibiotics and admitting to the hospital is warranted. Patient states with regards to hemodialysis, usually does it at home 4 days/week, usually does not do it on the weekends, his last treatment was about three quarters of a treatment yesterday, so even if we are unable to provide hemodialysis over the weekend, it being Friday morning he should be stable to beadmitted here. Next dialysis he would typically do is sometime on Friday. Follows with nephrology Dr. Shirley. Lab Data Attestation: I reviewed the patient's lab results. Labs: Laboratory Results - last 24 hr 10/31/24 02:12 WBC 16.4 H RBC 4.57 L Hgb 14.4 Hct 40.9 MCV 89.5 MCH 31.5 MCHC 35.2 RDW Std Deviation 44.1 H RDW Coeff of Fito 13.5 Plt Count 197 MPV 9.7 Immature Gran % (Auto) 1.500 H Neut % (Auto) 85.8 H Lymph % (Auto) 5.3 L Curry % (Auto) 7.1 Eos % (Auto) 0.1 Baso % (Auto) 0.2 Absolute Neuts (auto) 14.1 H Absolute Lymphs (auto) 0.86 Nucleated RBC % 0 Sodium 132 L Potassium 3.3 Chloride 89 L Carbon Dioxide 25.2 Anion Gap 18 H BUN 48 H Creatinine 6.33 H Estim Creat Clear Calc 11.97 L Est GFR (MDRD) Non-Af 9 L BUN/Creatinine Ratio 7.6 L Glucose 132 H Calcium 9.1 Radiography Diagnostic Testing: Clinical Impression(s) from Imaging Studies Chest X-Ray 10/31/24 02:30 IMPRESSION: Findings concerning for right middle lobe pneumonia. Recommend continued radiologic follow-up to document resolution. Prior median sternotomy. Mild pulmonary hyperinflation. No sizable pleural effusion. Mild elevation right Reading Location: [facility] Management Discussion w/another healthcare provider: Hospitalist Discharge Plan Triage Chief Complaint: General Illness ED Provider: Jimy Jarquin Dx/Rx/DC Orders Clinical Impression: Pneumonia, Hypoxemia, Failure of outpatient treatment, ESRD on hemodialysis Prescriptions: No Action metoprolol tartrate 25 mg tablet 25 mg PO BID pravastatin 40 mg tablet 40 mg PO QHS ondansetron 4 mg tablet,disintegrating 4 mg PO BID PRN (Reason: Nausea) aspirin 81 mg tablet,delayed release (DR/EC) 81 mg PO DAILY cholecalciferol (vitamin D3) 125 mcg (5,000 unit) capsule 125 mcg PO DAILY Renal-Svetlana 0.8 mg tablet 1 tab PO QDAY oxycodone 10 mg tablet 10 mg PO TID PRN (DME) hydrocortisone 2.5%/lidocaine 5% suppository (compound) Suppository See Rx Instructions .ROUTE Qty: 30 1RF Rx Instructions: insert rectum twice daily hydrocortisone [Proctozone-HC] 2.5 % cream with perineal applicator 1 applic IA QD-BID PRN (Reason: hemorrhoids) Qty: 30 0RF amoxicillin-pot clavulanate [Augmentin] 500-125 mg tablet 1 tab PO QDAY Qty: 5 0RF Rx Instructions: Take once a day. Take after dialysis. peg 3350-electrolytes 236-22.74-6.74 -5.86 gram recon soln 4,000 ml PO ONCE Qty: 4000 0RF Rx Instructions: until fecal effluent is clear; do not exceed a total volume of 4000 mL Primary Care Provider: Marlo Pollard Referrals: Marlo Pollard DO [Primary Care Provider] - Print Language: Finnish Disposition Disposition: Acute Care Hospital [facility] What to do if you have Problems For any increased pain, shortness of breath, bleeding, nausea or vomiting, chestpain, or any unexpected problems, contact your Primary Care Provider. Call [facility] ([phone]) or report to the closest Emergency Room. Call 911 if necessary. 10/31/24 0346 <Electronically signed by Jimy Jarquin MD> Cosigner Signature (if applicable): CC: Dr. Marlo Pollard DO ~ Signed [facility] Work Phone: [phone] History and physical note [facility] Medical Records Department [address] [place] [address] H&P Exam - Hospitalist 10/31/24 0347 MR#: [id number] Acct: [id number] Name: MARLO ADAMSON Rep #:[id number] : 1960 64 From: Elidia Cunningham MD PCP: Dr. Marlo Pollard, DO Status:ADM IN Location: [facility] [place] [facility] [id number] HPI - General General Date of Admission: 10/31/24 Date of Service: 10/31/24 Chief Complaint: Cough, congestion, dyspnea, recent outpatient abx. HPI Narrative The patient is a 64-year-old male with past medical history M w/ PMHx: PCKD w/ ESRD (T-F), CAD s/p PCI, HTN, HLD, GERD, Tobacco use, Hx VTE (DVT) who presents to the [facility] ED on 10/31/24 with congestion, fatigue, malaise, productive cough with worsening dyspnea over the last 5 days with recent outpatient PCP evaluation with initiation on doxycycline which has been taking with some mild improvement over the last couple days however he notes he has been attempting his home dialysis and unfortunately twice now the machine isshut down with his blood in the dialyzer unfortunately not returning the entire amount and has been concerned for worsened anemia prompting eventual ED evaluation. Workup in the ED included T98.9, heart rate 88, BP 144/86, respiratory rate 17, 90% room air-->85% dropped on room air, CBC with WBC 16.4, hemoglobin 14.4, platelet 187 with left shift, BMP with sodium 132, chloride 89,BUN/creatinine 48/6.33, glucose 132, chest x-ray with findings concerning for right middle lobe pneumonia, evidence of prior median sternotomy, mild pulmonaryhyperinflation. In the ED patient ministered IV Zosyn therapy. [facility] Medical History (Updated 10/31/24 @ 04:[address] Elidia Cunningham MD) Tobacco use ESRD on hemodialysis (~10/31/24) Wears dentures Marijuana use Polycystic renal disease DVT (deep venous thrombosis) High cholesterol History of echocardiogram Cardiology follow-up encounter Hypertension Hemorrhoids, internal GERD (gastroesophageal reflux disease) Myocardial infarction HTN (hypertension) Osteoarthritis Anxiety and depression CAD (coronary artery disease) Home Medications ?Medication ?Instructions ?Recorded ?Last Taken ?Type aspirin 81 mg tablet,delayed 81 mg PO DAILY 05/29/21 U nknown History release cholecalciferol (vitamin D3) 125 125 mcg PO DAILY 09/17 Unknown History mcg (5,000 unit) capsule metoprolol tartrate 25 mg tablet 25 mg PO BID 05/29/21 Unknown History ondansetron 4 mg disintegrating 4 mg PO BID PRN Nausea 05/29/21 Unknown History tablet pravastatin 40 mg tablet 40 mg PO QHS 05/29/21 Unknow n History Hydrocortisone 2.5%/lidocaine 5% #30 ea 10/13/24 Unkno wn Rx suppository (cmpd) (hydrocortisone 2.5%/lidocaine 5% suppository (compound)) hydrocortisone 2.5 % topical cream 1 applic IA QD-BID PRN hemorrhoids 10/13/24 Unknown Rx with perineal applicator #30 grams (Proctozone-HC) oxycodone 10 mg tablet 10 mg PO TID PRN pain Unknown History vitamin B complex-vitamin C-folic 1 tab PO QDAY Unknown History acid 0.8 mg tablet (Renal-Svetlana) peg 3350-electrolytes 236 4,000 ml PO ONCE #4,000 mL 0 10/27/24 Unknown Rx gram-22.74 gram-6.74 gram-5.86 gram solution calcitriol 0.25 mcg capsule 0.25 mcg PO DAILY 10/31/24 Unknown History doxycycline monohydrate 100 mg 100 mg PO BID 10/31/24 Unknown History tablet lidocaine-prilocaine 2.5 %-2.5 % topical DAILY 5 Unknown History topical cream Allergy/AdvReac Type Severity Reaction Status Date / Time atorvastatin (From Lipitor) AdvReac MUSCLE ACHE Verified 10/13/24 14:15 Family History (Updated 10/31/24 @ 04:[address] Elidia Cunningham MD) Father Cancer abdominal tumor--unsure type Brother Heart disease Sister Brain mass Mother Brain aneurysm Surgical History History of arteriovenostomy for renal dialysis (~05/2021) Hx of left knee surgery History of esophagogastroduodenoscopy (EGD) Hx of cystoscopy History of cardiac catheterization History of coronary artery bypass graft History of heart artery stent Social History (Updated 10/31/24 @ 04:[address] Elidia Cunningham MD) household members: none Smoking Status: Current every day smoker tobacco type: cigarettes Smoking packsper day: 1 Smoking cigarettes per day: 20.0 quit status: considering quitting alcohol intake: former substance use type: does not use ROS ROS Narrative Admission Review of Systems: CONSTITUTIONAL: No weight loss, fever, chills, + weakness or fatigue. HEENT: + Congestion, rhinorrhea. Eyes: No visual loss, blurred vision, double vision or yellow sclerae. Ears, Nose, Throat: No hearing loss, sneezing, sore throat. SKIN: No rash or itching, lesions, wounds. CARDIOVASCULAR: No chest pain, chest pressure or chest discomfort, palpitations,edema, orthopnea, syncopal events. RESPIRATORY: + shortness of breath, cough with sputum. No wheezing, hemoptysis. GASTROINTESTINAL: + anorexia, nausea. No vomiting or diarrhea, abdominal pain, melena, BRBPR. GENITOURINARY: No dysuria, frequency, urgency or retention. NEUROLOGICAL: No headache, dizziness, syncope, paralysis, ataxia, numbness or tingling in the extremities, focal weakness, change in bowel or bladder control,seizure. MUSCULOSKELETAL: + muscle, back pain, joint pain or stiffness. HEMATOLOGIC: No anemia, bleeding or bruising. LYMPHATICS: No enlarged nodes. No history of splenectomy. PSYCHIATRIC: No history of depression or anxiety. ENDOCRINOLOGIC: No reports of sweating, cold or heat intolerance. No polyuria orpolydipsia. ALLERGIES: No history of asthma, hives, eczema or rhinitis. Vital Signs Vital Signs Vital Signs: 10/31/24 01:58 10/31/24 02:06 10/31/24 02:14 Temperature 98.9 F Temperature Source Oral Pulse Rate 88 Respiratory Rate 17 Respiratory Effort Short of Breath Respiratory Pattern Normal Blood Pressure 144/86 H Blood Pressure Mean 105 Pulse Ox 90 85 Oxygen Delivery Method Room Air Room Air Oxygen Flow Rate (L/min) 10/31/24 03:45 Temperature 98.1 F Temperature Source Oral Pulse Rate 76 Respiratory Rate 16 Respiratory Effort Respiratory Pattern Blood Pressure 146/69 H Blood Pressure Mean 94 Pulse Ox 92 Oxygen Delivery Method Nasal Cannula Oxygen Flow Rate (L/min) 3 Weight Weight: 158 lb 4.67 oz Body Mass Index (BMI) 22.7 Physical Exam Narrative Physical Examination: General: Awake, alert, oriented x 3 and cooperative, seated upright in the ED bed, fatigued, ill-appearing. Skin: Normal color, normal turgor, no icterus, no cyanosis. HEENT: AT/NC, EOMI, PERRLA, MMM, no carotid bruits or JVD noted. Lungs: Diminished, greater bases, mildly decreased effort, no evidence of any distress, despite imaging no appreciated rales, ronchi or wheezing. Heart: Regular rate and rhythm; no gallop, rub audible. Abdomen: Soft, NTTP, ND, hyperactive BS, no appreciated HSM. Extremities: No cyanosis, clubbing, or edema, + left upper extremity with + AVF thrill. Neurological: Patient awake, alert, oriented as noted, cognitive function intact; pupils equally reactive to light and accommodation, cranial nerves grossly normal, moving all 4 extremities, no focaldeficits, strength moderatelyglobally decreased Psychiatric: Affect appears flat, fatigued, no acute evidence of depressive or anxiety feelings butdoes have underlying history. Results Lab / Micro Data 10/31/24 02:12 10/31/24 02:12 Labs: Laboratory Results - last 24 hr 10/31/24 02:12: WBC 16.4 H, RBC 4.57 L, Hgb 14.4, Hct 40.9, MCV 89.5, MCH 31.5, MCHC 35.2, RDW Std Deviation 44.1 H, RDW Coeff of Fito 13.5, Plt Count 197, MPV 9.7, Immature Gran % (Auto) 1.500 H, Neut % (Auto) 85.8 H, Lymph % (Auto) 5.3 L,Curry % (Auto) 7.1, Eos % (Auto) 0.1, Baso % (Auto) 0.2, Absolute Neuts (auto) 14.1 H, Absolute Lymphs (auto) 0.86, Nucleated RBC % 0, Sodium 132 L, Potassium 3.3, Chloride 89 L, Carbon Dioxide 25.2, Anion Gap 18 H, BUN 48 H, Creatinine 6.33 H, Estim Creat Clear Calc 11.97 L, Est GFR (MDRD) Non-Af 9 L, BUN/Creatinine Ratio 7.6 L, Glucose 132 H, Calcium 9.1 Imaging Radiology Impression Chest X-Ray 10/31/24 02:30 IMPRESSION: Findings concerning for right middle lobe pneumonia. Recommend continued radiologic follow-up to document resolution. Prior median sternotomy. Mild pulmonary hyperinflation. No sizable pleural effusion. Mild elevation right Reading Location: [facility] Assessment & Plan Assessment/Plan (1) Hypoxemia: (2) Pneumonia: (3) Failure of outpatient treatment: PLAN: Plan The patient is a 64-year-old male with past medical history M w/ PMHx: PCKD w/ ESRD, CAD s/p PCI, HTN, HLD, GERD, Tobacco use, Hx VTE (DVT) who presents to [facility] ED on 10/31/24 with congestion, fatigue, malaise, productive cough with worsening dyspnea over the last 5 days withrecent outpatient PCP evaluation with initiation on doxycycline which has been taking with some mild improvement over the last couple days however he has had increased dyspnea prompting evaluation. #1. Acute Hypoxia secondary to Acute right middle lobe pneumonia, failed outpatient abx therapy: Will admit to MS, maintain on oxygen with wean as tolerated to room air, continue ATC duonebs, PRN albuterol, maintain on IV Zosyngiven failed outpatient antibiotic therapy w/ MRSA screen requested to be cautious, HOB, IS parameters w/ pending sputum cultures, full respiratory viral panel and urine antigens. #2. PCKD with ESRD: Uses HD at home 4 days weekly, last usage just prior to presentation, followingwith Dr. Shirley. #3. CAD: Status post PCI and CABG x 4, continue aspirin, statin, metoprolol, not on VALERY inhibitor/ARB. #4. Hypertension: Continue home regimen including metoprolol, PRN hydralazine. #5. Hyperlipidemia: Continue patient on statin therapy. #6. GERD: Per current list not on regimen, will have as needed Mylanta. #7. History of VTE: Chart history with previous DVT, will maintain on chemoprophylaxis as noted. #8. Tobacco Abuse: Encouraged cessation, inpatient consultation per RT, NR if desired. #9. DVT prophylaxis: Heparin. #10. CODE status: Patient does not have healthcare power of consumer attorney or living will in place but henotes that he would want his ex- Nabila Triplett to be his medical decision-maker if necessary. Discussed CODE status at length including difference between FULL code, DNR-CCA and DNR-CC status. Following discussions about the differences in these status, requested Full Code status. [facility] Face to Face Time: 16 minutes. Charges/Coding Visit Charges Inpatient E&M: 60255 Init Hosp L3 Procedures Hospitalists Procedures: 83177 Advncd Care Plan 30 Min 10/31/24 0410 Cosigner Signature (if applicable): CC: Dr. Elidia Cunningham MD; Dr. Marlo Pollard DO~ Signed [facility]04-06-2025 Discharge summary [facility] Medical Records Department [address] [place] [address] Emergency Department Summary 10/31/24 MR#: [id number] Acct: [id number] Name: MARLO ADAMSON Rep #:[id number] : 1960 64 From: Jimy Jarquin MD PCP: Dr. Marlo Pollard DO Status:REG ER Location: ED HPI History of Present Illness Chief Complaint: General Illness Informant: patient Narrative Narrative: 64-year-old male states he has had productive cough congestion and some dyspnea last 5 days. His doctor started him on doxycycline. He has been taking that. States he started feel a bit better but inthe last couple days he has been doing his home hemodialysis, and he has had twice where the machine shuts down when blood gets into the top of my dialyzer and then he cannot return all of the blood in the lines to his body and he loses it. He is concerned that he is feeling more tired now and isasking for his blood counts checked. He presents here at 2 AM for this and has no other complaints. [facility] Medical History Wears dentures Alcohol use Marijuana use History of renal disease Polycystic renal disease DVT (deep venous thrombosis) Easy bruising High cholesterol Back pain Syncope Heartburn Smoker Leg cramps History of pain when walking History of edema History of echocardiogram Cardiology follow-up encounter Hypertension Hemorrhoids, internal GERD (gastroesophageal reflux disease) Myocardial infarction HTN (hypertension) Osteoarthritis Anxiety and depression CAD (coronary artery disease) Chronic progressive renal failure, stage 4 (severe) Acute renal failure Home Medications ?Medication ?Instructions ?Recorded ?Last Taken ?Type aspirin 81 mg tablet,delayed 81 mg PO DAILY 05/29/21 U nknown History release cholecalciferol (vitamin D3) 125 125 mcg PO DAILY 09/17 Unknown History mcg (5,000 unit) capsule metoprolol tartrate 25 mg tablet 25 mg PO BID 05/29/21 Unknown History ondansetron 4 mg disintegrating 4 mg PO BID PRN Nausea 05/29/21 Unknown History tablet pravastatin 40 mg tablet 40 mg PO QHS 05/29/21 Unknow n History Hydrocortisone 2.5%/lidocaine 5% #30 ea 10/13/24 Unkno wn Rx suppository (cmpd) (hydrocortisone 2.5%/lidocaine 5% suppository (compound)) amoxicillin 500 mg-potassium 1 tab PO QDAY #5 tabs Unknown Rx clavulanate 125 mg tablet (Augmentin) hydrocortisone 2.5 % topical cream 1 applic IA QD-BID PRN hemorrhoids 10/13/24 Unknown Rx with perineal applicator #30 grams (Proctozone-HC) oxycodone 10 mg tablet 10 mg PO TID PRN 10/13/24 Un known History vitamin B complex-vitamin C-folic 1 tab PO QDAY Unknown History acid 0.8 mg tablet (Renal-Svetlana) peg 3350-electrolytes 236 4,000 ml PO ONCE #4,000 mL 0 10/27/24 Unknown Rx gram-22.74 gram-6.74 gram-5.86 gram solution Allergy/AdvReac Type Severity Reaction Status Date / Time atorvastatin (From Lipitor) AdvReac MUSCLE ACHE Verified 10/13/24 14:15 Family History (Updated 10/13/24 @ 14:13 by Nabila Parra) Father Cancer abdominal tumor--unsure type Brother Heart disease Sister Brain mass Surgical History History of arteriovenostomy for renal dialysis (~05/2021) Hx of left knee surgery History of esophagogastroduodenoscopy (EGD) Hx of cystoscopy History of cardiac catheterization History of coronary artery bypass graft History of heart artery stent Social History (Updated 10/13/24 @ 14:14 by Nabila Parra) Smoking Status: Current every day smoker tobacco type: cigarettes quit status: quit date established ROS ROS ED Constitutional Constitutional ED: Reports fatigue and malaise; Denies chills or fever(s) Eyes Eyes: Denies change in vision or diplopia ENT ENT ED: Denies rhinorrhea or sore throat Cardiovascular Cardiovascular: Denies chest pain, orthopnea or palpitations Respiratory/Chest Respiratory/Chest: Reports cough and dyspnea on exertion; Denies orthopnea Gastrointestinal Gastrointestinal: Reports other Details: Chronic nausea ; Denies abdominal pain, diarrhea or vomiting Musculoskeletal Musculoskeletal: Denies back pain or neck pain Integumentary Denies abscess or rash Neurologic Neurologic: Denies headache(s), paresthesias or weakness Psychiatric Psychiatric: Denies suicidal thoughts EXAM Physical Exam Const Vital Signs: 10/31/24 01:58 10/31/24 02:06 Temperature 98.9 F Temperature Source Oral Pulse Rate 88 Respiratory Rate 17 Respiratory Effort Short of Breath Respiratory Pattern Normal Blood Pressure 144/86 H Blood Pressure Mean 105 Pulse Ox 90 Oxygen Delivery Method Room Air Positive well nourished and well developed General Appearance ED: well developed and NAD HEENT Reports moist mucous membranes normocephalic and atraumatic Eyes PERRL and EOMs intact bilaterally Neck full ROM and supple Resp normal respiratory effort and clear to auscultation bilaterally Cardio regular rate, regular rhythm and no murmurs Rate: Negative for tachycardic GI non-tender and non-distended Auscultation: normoactive bowel sounds Palpation: soft Back/Spine General Back: other FROM Extremity normal to inspection Extremity Narrative: Good thrill left distal forearm fistula, no bleeding General Extremety ED: Negative for edema, pulses abnormal or tenderness General Extremity: Negative for edema or pulses abnormal Neuro oriented x3, CN's II-XII intact bilaterally and no sensory deficits noted Neuro Narrative: Normal gait Sensorium / Orientation: awake and alert Motor Exam: strength 5/5 throughout Psych Mood & Affect: anxious Skin no rashes or lesions noted and no wounds MDM MDM MDM Narrative Medical decision making narrative: Patient has a leukocytosis, reassured him about his blood counts with a hemoglobin of 14. Chronic renal failure noted. His pulse ox was 90% when he walked in, the rest of the vitals are normal, but while resting his oxygen saturations went down to 85%. He wears no oxygen at home. We put him on oxyge nand he said that as a result he was feeling better than he has in the last several days. Two-view chest x-ray shows a right middle lobe pneumonia on my interpretation. Has been on doxycycline for 3 days now. Given his hypoxemia, Ibelieve giving parenteral antibiotics and admitting to the hospital is warranted. Patient states with regards to hemodialysis, usually does it at home 4 days/week, usually does not do it on the weekends, his last treatment was about three quarters of a treatment yesterday, so evenif we are unable to provide hemodialysis over the weekend, it being Friday morning he should be stable to beadmitted here. Next dialysis he would typically do is sometime on Friday. Follows with nephrology Dr. Shirley. Lab Data Attestation: I reviewed the patient's lab results. Labs: Laboratory Results - last 24 hr 10/31/24 02:12 WBC 16.4 H RBC 4.57 L Hgb 14.4 Hct 40.9 MCV 89.5 MCH 31.5 MCHC 35.2 RDW Std Deviation 44.1 H RDW Coeff of Fito 13.5 Plt Count 197 MPV 9.7 Immature Gran % (Auto) 1.500 H Neut % (Auto) 85.8 H Lymph % (Auto) 5.3 L Curry % (Auto) 7.1 Eos % (Auto) 0.1 Baso % (Auto) 0.2 Absolute Neuts (auto) 14.1 H Absolute Lymphs (auto) 0.86 Nucleated RBC % 0 Sodium 132 L Potassium 3.3 Chloride 89 L Carbon Dioxide 25.2 Anion Gap 18 H BUN 48 H Creatinine 6.33 H Estim Creat Clear Calc 11.97 L Est GFR (MDRD) Non-Af 9 L BUN/Creatinine Ratio 7.6 L Glucose 132 H Calcium 9.1 Radiography Diagnostic Testing: Clinical Impression(s) from Imaging Studies Chest X-Ray 10/31/24 02:30 IMPRESSION: Findings concerning for right middle lobe pneumonia. Recommend continued radiologic follow-up to document resolution. Prior median sternotomy. Mild pulmonary hyperinflation. No sizable pleural effusion. Mild elevation right Reading Location: [facility] Management Discussion w/another healthcare provider: Hospitalist Discharge Plan Triage Chief Complaint: General Illness ED Provider: Jimy Jarquin Dx/Rx/DC Orders Clinical Impression: Pneumonia, Hypoxemia, Failure of outpatient treatment, ESRD on hemodialysis Prescriptions: No Action metoprolol tartrate 25 mg tablet 25 mg PO BID pravastatin 40 mg tablet 40 mg PO QHS ondansetron 4 mg tablet,disintegrating 4 mg PO BID PRN (Reason: Nausea) aspirin 81 mg tablet,delayed release (DR/EC) 81 mg PO DAILY cholecalciferol (vitamin D3) 125 mcg (5,000 unit) capsule 125 mcg PO DAILY Renal-Svetlana 0.8 mg tablet 1 tab PO QDAY oxycodone 10 mg tablet 10 mg PO TID PRN (DME) hydrocortisone 2.5%/lidocaine 5% suppository (compound) Suppository See Rx Instructions .ROUTE Qty: 30 1RF Rx Instructions: insert rectum twice daily hydrocortisone [Proctozone-HC] 2.5 % cream with perineal applicator 1 applic IA QD-BID PRN (Reason: hemorrhoids) Qty: 30 0RF amoxicillin-pot clavulanate [Augmentin] 500-125 mg tablet 1 tab PO QDAY Qty: 5 0RF Rx Instructions: Take once a day. Take after dialysis. peg 3350-electrolytes 236-22.74-6.74 -5.86 gram recon soln 4,000 ml PO ONCE Qty: 4000 0RF Rx Instructions: until fecal effluent is clear; do not exceed a total volume of 4000 mL Primary Care Provider: Marlo Pollard Referrals: Marlo Pollard DO [Primary Care Provider] - Print Language: Finnish Disposition Disposition: Acute Care Hospital [facility] What to do if you have Problems For any increased pain, shortness of breath, bleeding, nausea or vomiting, chestpain, or any unexpected problems, contact your Primary Care Provider. Call [facility] ([phone]) or report tothe closest Emergency Room. Call 911 if necessary. 10/31/24 5077 Cosigner Signature (if applicable): CC: Dr. Marlo Pollard DO ~ Signed [facility]04-06-2025 Radiology Diagnostic study note [facility] Imaging Services [address] [place] [address] Chest PA and Lateral MR#: [id number] Acct: [id number] Name: MARLO ADAMSON Rep #: [id number] : 1960 M 64 From: And bobby Graf DO PCP: Dr. Marlo Pollard DO Status: PRE ER Study:Chest PA and Lateral Date of Exam: 10/31/24 Exam# [id number] Ordering Dr: Juliane Jarquin MD PROCEDURE: PA and lateral chest radiographs, four views 10/31/2024 REASON FOR EXAM: Cough and shortness of breath TECHNIQUE: Frontal and lateral views of the chest. COMPARISON: None available FINDINGS: The bones are osteopenic with degenerative changes in the spine. Lungs are mildly hyperinflated. Sternotomy wires are present. No pneumothorax or pulmonary vascular congestion. Left lung is grossly clear. There is some patchy opacity at the right lung base, concerning for right middle lobe pneumonia. Hemidiaphragm. RAD/Chest PA and Lateral IMPRESSION: Findings concerning for right middle lobe pneumonia. Recommend continued radiologic follow-up to document resolution. Prior median sternotomy. Mild pulmonary hyperinflation. No sizable pleural effusion. Mild elevation right Reading Location: [facility] CC: Dr. Jimy Jarquin MD; Dr. Marlo Pollard DO ~ Machine Baster: Signed [facility]03-19-2025 Evaluation note* Diagnosis Onset Date Resolution Status Admit Date Anal fistula acute October 13, 2024 1:52pm Hemorrhoids, internal, with bleeding acute October 13, 2024 1:52pm Screening for colon cancer acute October 13, 2024 1:52pm Failure of outpatient treatment acut e October 31, 2024 3:49am Hypoxemia acute October 31 3:49am Pneumonia acute October 31 3:49am [facility] Work Phone: 1(925) 506-903303-19-2025 Evaluation note* Diagnosis Onset Date Resolution Status Admit Date Anal fistula acute October 13, 2024 1:52pm Hemorrhoids, internal, with bleeding acute October 13, 2024 1:52pm Screening for colon cancer acute October 13, 2024 1:52pm ESRD (end stage renal disease) acute October 31, 2024 3:49am Failure of outpatient treatment acut e October 31, 2024 3:49am Hypoxemia acute October 31 3:49am Pneumonia acute October 31 3:49am [facility] Work Phone: 1(779) 385-515803-19-2025 Evaluation note* Diagnosis Onset Date Resolution Status Admit Date Anal fistula chronic October 13, 2024 1:52pm Hemorrhoids, internal, with bleeding chronic October 13, 2024 1:52pm Screening for colon cancer resolved October 13, 2024 1:52pm Failure of outpatient treatment resolved October 31, 2024 3:49am Hypoxemia resolved October 31 3:49am Pneumonia resolved October 31 3:49am ESRD (end stage renal disease) inact fabricio October 31, 2024 3:49am Anal fistula chronic December 22 6:11am Hemorrhoids, internal, with bleeding chronic December 22, 2024 6 :11am Screening for colon cancer resolved December 22, 2024 6:11am [facility] Work Phone: 1(244) 764-156411-09-2021 NoteHNO ID: [id number] Author: Casey Castañeda Population Health Navigator Service: ? Author Type: ? Type: Progress Notes Filed: 06/05/2021 2:09 PM Note Text: POPULATION HEALTH NAVIGATION OUTREACH Action/FYI I left a voice message re: pcp No care everywhere Contact made with patient or family member? NO Pt identified by name and : NO Outreach Outcome/Action Unable to reach patient: Left message Reason for Outreach Attribution: Provider Off-boarding Payer: Payor: MEDICARE / Plan: MEDICARE A AND B / Product Type: Medicare / Care Gap Reviewed:: Reminder: Reminder note to check Health Maintenance for items below Health Maintenance items due: COVID-19 VACCINE(1) Never done HEPATITIS C SCREENING Never done HIV SCREENING Never done BP CONTROLLED (<130/80) Never done TWO PNEUMOVAX 5 YEARS APART PRIOR TO AGE 65(1) Never done SHINGRIX VACCINE(1 of 2) Never done LUNG CANCER SCREENING Never done DEPRESSION SCREENING due on 06/17/2017 COLORECTAL CANCER SCREENING due on 06/07/2020 SERUM CREATININE due on 06/18/2020 INFLUENZA(1) due on 03/28/2021 HEMOGLOBIN/HEMATOCRIT due on 04/19/2021 LDL CHOLESTEROL due on 06/14/2021 Advanced Directives Completed: Have you ever planned for future healthcare decisions with a power of consumer attorney, living will, or advance directives? No. Please bring a copy to your next appointment or email to Referrals: N/A Message Sent to Practice: NO Navigation Signature: Casey Castañeda Population Health Navigator June 05, 2021 2:09 [facility]11-09-2021 NotePatient Outreach (NETNAV) MARLO ADAMSON ([id number]) 1960 M Date Time Provider Department 06/05/21 CASEY CASTAÑEDA During your visit today, we recorded the following information about you: Casey Castañeda Population Health Navigator 06/05/2021 2:09 PM Signed POPULATION HEALTH NAVIGATION OUTREACH Action/FYI I left a voice message re: pcp No care everywhere Contact made with patient or family member? NO Pt identified by name and : NO Outreach Outcome/Action Unable to reach patient: Left message Reason for Outreach Attribution: Provider Off-boarding Payer: Payor: MEDICARE / Plan: MEDICARE A AND B / Product Type: Medicare / Care Gap Reviewed:: Reminder: Reminder note to check Health Maintenance for items below Health Maintenance items due: COVID-19 VACCINE(1) Never done HEPATITIS C SCREENING Never done HIV SCREENING Never done BP CONTROLLED (<130/80) Never done TWO PNEUMOVAX 5 YEARS APART PRIOR TO AGE 65(1) Never done SHINGRIX VACCINE(1 of 2) Never done LUNG CANCER SCREENING Never done DEPRESSION SCREENING due on 06/17/2017 COLORECTAL CANCER SCREENING due on 06/07/2020 SERUM CREATININE due on 06/18/2020 INFLUENZA(1) due on 03/28/2021 HEMOGLOBIN/HEMATOCRIT due on 04/19/2021 LDL CHOLESTEROL due on 06/14/2021 Advanced Directives Completed: Have you ever planned for future healthcare decisions with a power of consumer attorney, living will, or advance directives? No. Please bring a copy to your next appointment or email to Referrals: N/A Message Sent to Practice: NO Navigation Signature: Casey Castañeda Population Health Navigator June 05, 2021 2:09 PM Allergies As of Date: 06/05/2021 Noted Allergy Reaction LIPITOR (ATORVASTATIN CALCIUM) 05/15/2010 14 - Other: See Comments Comments: myalgia Date Reviewed: 07/04/2020 Reviewed by: Lexus Mcneil Ma - Fully Assessed Reason for Visit: Population Health Navigation Outreach [3910] Cmt: Offboarding Prescriptions as of 06/05/2021 - albuterol HFA (PROAIR HFA) 90 mcg/actuation inhaler Inhale 2 Puffs as instructed every 6 hours as needed. - Tadalafil (CIALIS) 20 mg tab(s) use as needed - pravastatin (PRAVACHOL) 40 mg tablet Take 1 tablet by mouth daily at bedtime. - metoprolol tartrate, short acting, (LOPRESSOR) 25 mg tablet Take 1 tablet by mouth twice daily. - lisinopril (ZESTRIL, PRINIVIL) 10 mg tablet Take 1 tablet by mouth once daily. - cholecalciferol (VITAMIN D-3) 2,000 unit tablet Take 2,000 Units by mouth once daily. - Aspirin 81 mg ORAL Tab Take one(1) tablet daily. Problem List As Of Date 06/05/2021 Noted Resolved ESOPHAGEAL REFLUX [K21.9] 01/29/2007 Cellulitis and abscess of unspecified site [L03*01/29/2007 12/15/2018 MT NOS EPISODE CARE UNSPEC [I21.9] 02/03/2007 Hematuria [599.7] 05/14/2007 12/15/2018 Erectile dysfunction [N52.9] 05/15/2010 Renal calculi [N20.0] 05/31/2011 BPH (benign prostatic hyperplasia) [N40.0] 06/10/2011 Kidney stone [N20.0] 06/10/2011 Testalgia [N50.819] 06/10/2011 12/15/2018 Polycystic kidney disease [Q61.3] 08/21/2011 ASHD (arteriosclerotic heart disease) [I25.10] 08/27/2011 External hemorrhoids [K64.4] 08/27/2011 Inguinal hernia bilateral, non-recurrent [K40.2*09/08/2012 Hematospermia [R36.1] 04/21/2013 12/15/2018 Medication monitoring encounter [Z51.81] 02/18/2014 Tobacco abuse [Z72.0] 03/02/2014 Essential hypertension [I10] 08/17/2015 CKD (chronic kidney disease) stage 4, GFR 15-29*06/17/2016 Encounter Status:Closed by JOSE A POPULATION HEALTH NAVIGATORCASEY on 06/05/21[facility]08-31-2021 NoteHNO ID: [id number] Author: Mary Casillas MA Service: ? Author Type: Stone Sandblaster Type: Progress Notes Filed: 03/27/2021 1:05 PM Note Text: POPULATION HEALTH NAVIGATION OUTREACH Action/FYI LVM Health Maintenance items due: ANNUAL MEDICARE WELLNESS BP CONTROLLED (<130/80) Never done COLORECTAL CANCER SCREENING due on 06/07/2020 SERUM CREATININE due on 06/18/2020 SMOKING CESSATION ADVANCE DIRECTIVE MYCHART Contact made with patient or family member? NO Pt identified by name and : NO Outreach Outcome/Action Unable to reach patient: Left message Reason for Outreach Care Gap or Scheduling/Wellness visits Payer: Payor: MEDICARE / Plan: MEDICARE A AND B / Product Type: Medicare / Care Gap Reviewed:: Annual Wellness visit Follow-up appointment Controlling Blood Pressure Colorectal Cancer Screening Smoking cessation ACO only Reminder: Reminder note to check Health Maintenance for items below Health Maintenance items due: COVID-19 VACCINE(1) Never done BP CONTROLLED (<130/80) Never done DEPRESSION SCREENING due on 06/17/2017 COLORECTAL CANCER SCREENING due on 06/07/2020 SERUM CREATININE due on 06/18/2020 Advanced Directives Completed: Have you ever planned for future healthcare decisions with a power of consumer attorney, living will, or advance directives? Referrals: N/A Message Sent to Practice: NO Navigation Signature: Mary Casillas MA March 27, 2021 1:01 [facility]08-31-2021 NotePatient Outreach ([facility]) FORCE,MARLO Wallace ([id number]) 1960 M Date Time Provider Department 03/27/21 MARY CASILLAS During your visit today, we recorded the following information about you: Mary Casillas MA 03/27/2021 1:05 PM Signed POPULATION HEALTH NAVIGATION OUTREACH Action/FYI LVM Health Maintenance items due: ANNUAL MEDICARE WELLNESS BP CONTROLLED (<130/80) Never done COLORECTAL CANCER SCREENING due on 06/07/2020 SERUM CREATININE due on 06/18/2020 SMOKING CESSATION ADVANCE DIRECTIVE MYCHART Contact made with patient or family member? NO Pt identified by name and : NO Outreach Outcome/Action Unable to reach patient: Left message Reason for Outreach Care Gap or Scheduling/Wellness visits Payer: Payor: MEDICARE / Plan: MEDICARE A AND B / Product Type: Medicare / Care Gap Reviewed:: Annual Wellness visit Follow-up appointment Controlling Blood Pressure Colorectal Cancer Screening Smoking cessation ACO only Reminder: Reminder note to check Health Maintenance for items below Health Maintenance items due: COVID-19 VACCINE(1) Never done BP CONTROLLED (<130/80) Never done DEPRESSION SCREENING due on 06/17/2017 COLORECTAL CANCER SCREENING due on 06/07/2020 SERUM CREATININE due on 06/18/2020 Advanced Directives Completed: Have you ever planned for future healthcare decisions with a power of consumer attorney, living will, or advance directives? Referrals: N/A Message Sent to Practice: NO Navigation Signature: Mary Casillas MA March 27, 2021 1:01 PM Allergies As of Date: 03/27/2021 Noted Allergy Reaction LIPITOR (ATORVASTATIN CALCIUM) 05/15/2010 14 - Other: See Comments Comments: myalgia Date Reviewed: 07/04/2020 Reviewed by: Lexus Mcneil Ma - Fully Assessed Reason for Visit: Population Health Navigation Outreach [1810] Cmt: ACO DEBORAH PCSA Prescriptions as of 03/27/2021 - albuterol HFA (PROAIR HFA) 90 mcg/actuation inhaler Inhale 2 Puffs as instructed every 6 hours as needed. - Tadalafil (CIALIS) 20 mg tab(s) use as needed - pravastatin (PRAVACHOL) 40 mg tablet Take 1 tablet by mouth daily at bedtime. - metoprolol tartrate, short acting, (LOPRESSOR) 25 mg tablet Take 1 tablet by mouth twice daily. - lisinopril (ZESTRIL, PRINIVIL) 10 mg tablet Take 1 tablet by mouth once daily. - cholecalciferol (VITAMIN D-3) 2,000 unit tablet Take 2,000 Units by mouth once daily. - Aspirin 81 mg ORAL Tab Take one(1) tablet daily. Problem List As Of Date 03/27/2021 Noted Resolved ESOPHAGEAL REFLUX [K21.9] 01/29/2007 Cellulitis and abscess of unspecified site [L03*01/29/2007 12/15/2018 MT NOS EPISODE CARE UNSPEC [I21.9] 02/03/2007 Hematuria [599.7] 05/14/2007 12/15/2018 Erectile dysfunction [N52.9] 05/15/2010 Renal calculi [N20.0] 05/31/2011 BPH (benign prostatic hyperplasia) [N40.0] 06/10/2011 Kidney stone [N20.0] 06/10/2011 Testalgia [N50.819] 06/10/2011 12/15/2018 Polycystic kidney disease [Q61.3] 08/21/2011 ASHD (arteriosclerotic heart disease) [I25.10] 08/27/2011 External hemorrhoids [K64.4] 08/27/2011 Inguinal hernia bilateral, non-recurrent [K40.2*09/08/2012 Hematospermia [R36.1] 04/21/2013 12/15/2018 Medication monitoring encounter [Z51.81] 02/18/2014 Tobacco abuse [Z72.0] 03/02/2014 Essential hypertension [I10] 08/17/2015 CKD (chronic kidney disease) stage 4, GFR 15-29*06/17/2016 Encounter Status:Closed by MARY CASILLAS on 03/27/21[facility]07-06-2021 NoteHNO ID: [id number] Author: Mariah Johnson Ma Service: ? Author Type: ? Type: Progress Notes Filed: 01/30/2021 3:08 PM Note Text: POPULATION HEALTH NAVIGATION OUTREACH Action/FYI Left message for patient to call back regarding scheduling/care gaps. Letter Sent. Letter mailed 01/30/21 - Navigation Signature: Mariah Johnson Ma January 30, 2021 2:31 [facility]06-29-2021 NotePatient Outreach (NETNAV) MARLO ADAMSON ([id number]) 1960 M Date Time Provider Department 01/23/21 MARIAH JOHNSON (MARGO) DENIA During your visit today, we recorded the following information about you: Mariah Johnson Ma 01/30/2021 2:33 PM Signed POPULATION HEALTH NAVIGATION OUTREACH Action/FYI Left message for patient to call back regarding scheduling/care gaps. Contact made with patient or family member? NO Pt identified by name and : NO Outreach Outcome/Action Unable to reach patient: Left message Reason for Outreach Care Gap or Scheduling/Wellness visits Payer: Payor: MEDICARE / Plan: MEDICARE A AND B / Product Type: Medicare / Care Gap Reviewed:: Annual Wellness visit Colorectal Cancer Screening Reminder: Reminder note to check Health Maintenance for items below Health Maintenance items due: COVID-19 VACCINE(1) Never done BP CONTROLLED (<130/80) Never done DEPRESSION SCREENING due on 06/17/2017 COLORECTAL CANCER SCREENING due on 06/07/2020 SERUM CREATININE due on 06/18/2020 Advanced Directives Completed: Have you ever planned for future healthcare decisions with a power of consumer attorney, living will, or advance directives? No. Are you interested in a follow-up phone call or visit with a doctor for more information about planning for future health care decisions? No Referrals: N/A Message Sent to Practice: NO Navigation Signature: Mariah Johnson Ma January 23, 2021 10:36 AM Mariah Johnson Ma 01/30/2021 2:33 PM Addendum POPULATION HEALTH NAVIGATION OUTREACH Action/FYI Left message for patient to call back regarding scheduling/care gaps. Letter Sent. Letter mailed 01/30/21 - Navigation Signature: Mariah Johnson Ma January 30, 2021 2:31 PM Allergies As of Date: 01/23/2021 Noted Allergy Reaction LIPITOR (ATORVASTATIN CALCIUM) 05/15/2010 14 - Other: See Comments Comments: myalgia Date Reviewed: 07/04/2020 Reviewed by: Lexus Mcneil Ma - Fully Assessed Reason for Visit: Population Health Navigation Outreach [3910] Cmt: ACO Care Gap 1 Prescriptions as of 01/30/2021 - albuterol HFA (PROAIR HFA) 90 mcg/actuation inhaler Inhale 2 Puffs as instructed every 6 hours as needed. - Tadalafil (CIALIS) 20 mg tab(s) use as needed - pravastatin (PRAVACHOL) 40 mg tablet Take 1 tablet by mouth daily at bedtime. - metoprolol tartrate, short acting, (LOPRESSOR) 25 mg tablet Take 1 tablet by mouth twice daily. - lisinopril (ZESTRIL, PRINIVIL) 10 mg tablet Take 1 tablet by mouth once daily. - cholecalciferol (VITAMIN D-3) 2,000 unit tablet Take 2,000 Units by mouth once daily. - Aspirin 81 mg ORAL Tab Take one(1) tablet daily. Problem List As Of Date 01/23/2021 Noted Resolved ESOPHAGEAL REFLUX [K21.9] 01/29/2007 Cellulitis and abscess of unspecified site [L03*01/29/2007 12/15/2018 MT NOS EPISODE CARE UNSPEC [I21.9] 02/03/2007 Hematuria [599.7] 05/14/2007 12/15/2018 Erectile dysfunction [N52.9] 05/15/2010 Renal calculi [N20.0] 05/31/2011 BPH (benign prostatic hyperplasia) [N40.0] 06/10/2011 Kidney stone [N20.0] 06/10/2011 Testalgia [N50.819] 06/10/2011 12/15/2018 Polycystic kidney disease [Q61.3] 08/21/2011 ASHD (arteriosclerotic heart disease) [I25.10] 08/27/2011 External hemorrhoids [K64.4] 08/27/2011 Inguinal hernia bilateral, non-recurrent [K40.2*09/08/2012 Hematospermia [R36.1] 04/21/2013 12/15/2018 Medication monitoring encounter [Z51.81] 02/18/2014 Tobacco abuse [Z72.0] 03/02/2014 Essential hypertension [I10] 08/17/2015 CKD (chronic kidney disease) stage 4, GFR 15-29*06/17/2016 Letter Text Encounter Status:Closed by MARIAH JOHNSON MA on 01/30/21[facility]06-29-2021 NoteHNO ID: [id number] Author: Mariah Johnson Ma Service: ? Author Type: ? Type: Progress Notes Filed: 01/30/2021 2:33 PM Note Text: POPULATION HEALTH NAVIGATION OUTREACH Action/FYI Left message for patient to call back regarding scheduling/care gaps. Contact made with patient or family member? NO Pt identified by name and : NO Outreach Outcome/Action Unable to reach patient: Left message Reason for Outreach Care Gap or Scheduling/Wellness visits Payer: Payor: MEDICARE / Plan: MEDICARE A AND B / Product Type: Medicare / Care Gap Reviewed:: Annual Wellness visit Colorectal Cancer Screening Reminder: Reminder note to check Health Maintenance for items below Health Maintenance items due: COVID-19 VACCINE(1) Never done BP CONTROLLED (<130/80) Never done DEPRESSION SCREENING due on 06/17/2017 COLORECTAL CANCER SCREENING due on 06/07/2020 SERUM CREATININE due on 06/18/2020 Advanced Directives Completed: Have you ever planned for future healthcare decisions with a power of consumer attorney, living will, or advance directives? No. Are you interested in a follow-up phone call or visit with a doctor for more information about planning for future health care decisions? No Referrals: N/A Message Sent to Practice: NO Navigation Signature: Mariah Johnson Ma January 23, 2021 10:36 [facility]03-24-2021 NoteHNO ID: [id number] Author: Radha Turk Service: ? Author Type: ? Type: Progress Notes Filed: 10/18/2020 4:45 PM Note Text: Contacted patient he declined, mailed colonoscopy letter. -[facility] NoteHNO ID: [id number] Author: Dave Viera (Rn) NISHA Martin Service: ? Author Type: Registered Nurse Type: Progress Notes Filed: 10/18/2020 4:45 PM Note Text: Pt overdue for screening colonoscopy. Pt needs office visit prior due to medical history. Please call pt and schedule with SPECIAL EDUCATION ADMINISTRATOR or PA. Dave Martin [facility]21 NotePatient Outreach (FAMPWS) MARLO ADAMSON ([id number]) 1960 M Date Time Provider Department 10/17/20 DAVE MARTIN (RN)JEFFERSONWS During your visit today, we recorded the following information about you: Dave Martin RN, RN 10/18/2020 4:45 PM Signed Pt overdue for screening colonoscopy. Pt needs office visit prior due to medical history. Please call pt and schedule with SPECIAL EDUCATION ADMINISTRATOR or PA. NISHA Mesa [facility] 10/18/2020 4:45 PM Signed Contacted patient he declined, mailed colonoscopy letter. -Radha Casillas [facility] Allergies As of Date: 10/17/2020 Noted Allergy Reaction LIPITOR (ATORVASTATIN CALCIUM) 05/15/2010 14 - Other: See Comments Comments: myalgia Date Reviewed: 07/04/2020 Reviewed by: Lexus Mcneil Ma - Fully Assessed Reason for Visit: Outpatient Colonoscopy [482] Prescriptions as of 10/17/2020 Sig: ALBUTEROL SULFATE HFA 90 MCG/* Inhale 2 Puffs as instructed * TADALAFIL 20 MG TABLET use as needed PRAVASTATIN 40 MG TABLET Take 1 tablet by mouth daily * METOPROLOL TARTRATE 25 MG TAB* Take 1 tablet by mouth twice * LISINOPRIL 10 MG TABLET Take 1 tablet by mouth once d* CHOLECALCIFEROL (VITAMIN D3) * Take 2,000 Units by mouth onc* ASPIRIN 81 MG TABLET Take one(1) tablet daily. Problem List As Of Date 10/17/2020 Noted Resolved ESOPHAGEAL REFLUX [K21.9] 01/29/2007 Cellulitis and abscess of unspecified site [L03*01/29/2007 12/15/2018 MT NOS EPISODE CARE UNSPEC [I21.9] 02/03/2007 Hematuria [599.7] 05/14/2007 12/15/2018 Erectile dysfunction [N52.9] 05/15/2010 Renal calculi [N20.0] 05/31/2011 BPH (benign prostatic hyperplasia) [N40.0] 06/10/2011 Kidney stone [N20.0] 06/10/2011 Testalgia [N50.819] 06/10/2011 12/15/2018 Polycystic kidney disease [Q61.3] 08/21/2011 ASHD (arteriosclerotic heart disease) [I25.10] 08/27/2011 External hemorrhoids [K64.4] 08/27/2011 Inguinal hernia bilateral, non-recurrent [K40.2*09/08/2012 Hematospermia [R36.1] 04/21/2013 12/15/2018 Medication monitoring encounter [Z51.81] 02/18/2014 Tobacco abuse [Z72.0] 03/02/2014 Essential hypertension [I10] 08/17/2015 CKD (chronic kidney disease) stage 4, GFR 15-29*06/17/2016 Encounter Status:Closed by RADHA RENTERIA on 10/18/20[facility]12-08-2020 History of Present illness Narrative* Fransisca Vicente (Rt)Valdo - 07/04/2020 5:40 PM EST Radiology Service Progress Note PATIENT NAME: Marlo Adamson DATE OF SERVICE: July 04, 2020 TIME: 5:39 PM PATIENT IDENTITY VERIFICATION COMPLETED USING TWO (2) IDENTIFIERS: Name and Date of confirmedby patient verbally. FALL SCREENING: Has the patient had 2 falls in the last year or 1 fall with injury or currently using an Ambulatory Assistive Device (Walker, Cane, Wheelchair, Crutches, etc.)? No PATIENT GENDER DATA: Male PATIENT RELEVANT IMPLANT DATA REVIEWED: Not Applicable RADIOLOGY DEPARTMENT: General X-ray: Exam(s) Completed: Chest X-Ray PERIPHERAL IV DATA: Not applicable SIGNED BY: RT Gideon July 04, 2020 5:39 PM [facility] Consult note Author Joseph Hu [facility] Note Date/Time December 22, 2024 8:43a m [facility] Medical Records Department [address] [place] [address] Anesthesia Postop Eval I 12/22/24841 MR#: [id number] Acct: [id number] Name: MARLO ADAMSON Rep #:[id number] : 1960 64 From: Joseph Hu PCP: Dr. Marlo Pollard, DO Status:REG [facility] [place] Race: C Location: [place] [address] Anesthesia: Postop Eval I Current Vital Signs Temperature: 97.8 F Pulse Rate: 63 Blood Pressure: 101/68 Respiratory Rate: 16 Pulse Ox: 100 Oxygen Delivery Method: Room Air Assessment Airway patent: Yes Spontaneous unlabored respirations: Yes Mental status: Asleep nausea: No Vomiting: No Anesthesia Complication: No Fluid Hydration Crystalloid volume administer (ml): 200 Total IV fluid infused: 200 Progress Note Anesthesia document: Postop Eval 1 completed: Yes 12/22/24842 <Electronically signed by Joseph Hu > Date _ Joseph Roy Signature: Date CC: ~ Signed [facility] Work Phone: Consult note Author Rosy Daley [facility] Note Date/Time January 21, 2025 2:30 pm [facility] Medical Records Department [address] [place] [address] Anesthesia Postop Eval I 01/21/25 1429 MR#: [id number] Acct: [id number] Name: MARLO ADAMSON Rep #:[id number] : 1960 64 From: Rosy Garcia PCP: Dr. Marlo Pollard, DO Status:REG [place] Y Race: C Location: [place] [address] Anesthesia: Postop Eval I Current Vital Signs Temperature: 97.4 F Pulse Rate: 92 Blood Pressure: 142/92 Respiratory Rate: 16 Pulse Ox: 100 Oxygen Delivery Method: Room Air Assessment Airway patent: Yes Spontaneous unlabored respirations: Yes Mental status: Awake nausea: No Vomiting: No Anesthesia Complication: No Fluid Hydration Crystalloid volume administer (ml): 200 Total IV fluid infused: 200 Progress Note Anesthesia document: Postop Eval 1 completed: Yes 01/21/25 1430 <Electronically signed by Rosy Lackey RNA> Date _ Rosy Daley [employer]CAFF[employer] WORKER 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 Marlo Pollard, DO Status:REG ER Location: ED HPI History of Present Illness Chief Complaint: General Illness Informant: patient Narrative Narrative: 64-year-old male states he has had productive cough congestion and some dyspnea last 5 days. His doctor started him on doxycycline. He has been taking that. States he started feel a bit better but in the last couple days he has been doing his home hemodialysis, and he has had twice where the machine shuts down when blood gets into the top of my dialyzer and then he cannot return all of the blood in the lines to his body and he loses it. He is concerned that he is feeling more tired now and is asking for his blood counts checked. He presents here at 2 AM for this and has no other complaints. [facility] Medical History Wears dentures Alcohol use Marijuana use History of renal disease Polycystic renal disease DVT (deep venous thrombosis) Easy bruising High cholesterol Back pain Syncope Heartburn Smoker Leg cramps History of pain when walking History of edema History of echocardiogram Cardiology follow-up encounter Hypertension Hemorrhoids, internal GERD (gastroesophageal reflux disease) Myocardial infarction HTN (hypertension) Osteoarthritis Anxiety and depression CAD (coronary artery disease) Chronic progressive renal failure, stage 4 (severe) Acute renal failure Home Medications ?Medication ?Instructions ?Recorded ?Last Taken ?Type aspirin 81 mg tablet,delayed 81 mg PO DAILY 05/29/21 U nknown History release cholecalciferol (vitamin D3) 125 125 mcg PO DAILY 09/17 Unknown History mcg (5,000 unit) capsule metoprolol tartrate 25 mg tablet 25 mg PO BID 05/29/21 Unknown History ondansetron 4 mg disintegrating 4 mg PO BID PRN Nausea 05/29/21 Unknown History tablet pravastatin 40 mg tablet 40 mg PO QHS 05/29/21 Unknow n History Hydrocortisone 2.5%/lidocaine 5% #30 ea 10/13/24 Unkno wn Rx suppository (cmpd) (hydrocortisone 2.5%/lidocaine 5% suppository (compound)) amoxicillin 500 mg-potassium 1 tab PO QDAY #5 tabs Unknown Rx clavulanate 125 mg tablet (Augmentin) hydrocortisone 2.5 % topical cream 1 applic IA QD-BID PRN hemorrhoids 10/13/24 Unknown Rx with perineal applicator #30 grams (Proctozone-HC) oxycodone 10 mg tablet 10 mg PO TID PRN 10/13/24 Un known History vitamin B complex-vitamin C-folic 1 tab PO QDAY Unknown History acid 0.8 mg tablet (Renal-Svetlana) peg 3350-electrolytes 236 4,000 ml PO ONCE #4,000 mL 0 10/27/24 Unknown Rx gram-22.74 gram-6.74 gram-5.86 gram solution Allergy/AdvReac Type Severity Reaction Status Date / Time atorvastatin (From Lipitor) AdvReac MUSCLE ACHE Verified 10/13/24 14:15 Family History (Updated 10/13/24 @ 14:13 by Nabila Parra) Father Cancer abdominal tumor--unsure type Brother Heart disease Sister Brain mass Surgical History History of arteriovenostomy for renal dialysis (~05/2021) Hx of left knee surgery History of esophagogastroduodenoscopy (EGD) Hx of cystoscopy History of cardiac catheterization History of coronary artery bypass graft History of heart artery stent Social History (Updated 10/13/24 @ 14:14 by Nabila Parra) Smoking Status: Current every day smoker tobacco type: cigarettes quit status: quit date established ROS ROS ED Constitutional Constitutional ED: Reports fatigue and malaise; Denies chills or fever(s) Eyes Eyes: Denies change in vision or diplopia ENT ENT ED: Denies rhinorrhea or sore throat Cardiovascular Cardiovascular: Denies chest pain, orthopnea or palpitations Respiratory/Chest Respiratory/Chest: Reports cough and dyspnea on exertion; Denies orthopnea Gastrointestinal Gastrointestinal: Reports other Details: Chronic nausea ; Denies abdominal pain, diarrhea or vomiting Musculoskeletal Musculoskeletal: Denies back pain or neck pain Integumentary Denies abscess or rash Neurologic Neurologic: Denies headache(s), paresthesias or weakness Psychiatric Psychiatric: Denies suicidal thoughts EXAM Physical Exam Const Vital Signs: 10/31/24 01:58 10/31/24 02:06 Temperature 98.9 F Temperature Source Oral Pulse Rate 88 Respiratory Rate 17 Respiratory Effort Short of Breath Respiratory Pattern Normal Blood Pressure 144/86 H Blood Pressure Mean 105 Pulse Ox 90 Oxygen Delivery Method Room Air Positive well nourished and well developed General Appearance ED: well developed and NAD HEENT Reports moist mucous membranes normocephalic and atraumatic Eyes PERRL and EOMs intact bilaterally Neck full ROM and supple Resp normal respiratory effort and clear to auscultation bilaterally Cardio regular rate, regular rhythm and no murmurs Rate: Negative for tachycardic GI non-tender and non-distended Auscultation: normoactive bowel sounds Palpation: soft Back/Spine General Back: other FROM Extremity normal to inspection Extremity Narrative: Good thrill left distal forearm fistula, no bleeding General Extremety ED: Negative for edema, pulses abnormal or tenderness General Extremity: Negative for edema or pulses abnormal Neuro oriented x3, CN's II-XII intact bilaterally and no sensory deficits noted Neuro Narrative: Normal gait Sensorium / Orientation: awake and alert Motor Exam: strength 5/5 throughout Psych Mood & Affect: anxious Skin no rashes or lesions noted and no wounds MDM MDM MDM Narrative Medical decision making narrative: Patient has a leukocytosis, reassured him about his blood counts with a hemoglobin of 14. Chronic renal failure noted. His pulse ox was 90% when he walked in, the rest of the vitals are normal, but while resting his oxygen saturations went down to 85%. He wears no oxygen at home. We put him on oxygenand he said that as a result he was feeling better than he has in the last several days. Two-view chest x-ray shows a right middle lobe pneumonia on my interpretation. Has been on doxycycline for 3 days now. Given his hypoxemia, Ibelieve giving parenteral antibiotics and admitting to the hospital is warranted. Patient states with regards to hemodialysis, usually does it at home 4 days/week, usually does not do it on the weekends, his last treatment was about three quarters of a treatment yesterday, so even if we are unable to provide hemodialysis over the weekend, it being Friday morning he should be stable to beadmitted here. Next dialysis he would typically do is sometime on Friday. Follows with nephrology Dr. Shirley. Lab Data Attestation: I reviewed the patient's lab results. Labs: Laboratory Results - last 24 hr 10/31/24 02:12 WBC 16.4 H RBC 4.57 L Hgb 14.4 Hct 40.9 MCV 89.5 MCH 31.5 MCHC 35.2 RDW Std Deviation 44.1 H RDW Coeff of Fito 13.5 Plt Count 197 MPV 9.7 Immature Gran % (Auto) 1.500 H Neut % (Auto) 85.8 H Lymph % (Auto) 5.3 L Curry % (Auto) 7.1 Eos % (Auto) 0.1 Baso % (Auto) 0.2 Absolute Neuts (auto) 14.1 H Absolute Lymphs (auto) 0.86 Nucleated RBC % 0 Sodium 132 L Potassium 3.3 Chloride 89 L Carbon Dioxide 25.2 Anion Gap 18 H BUN 48 H Creatinine 6.33 H Estim Creat Clear Calc 11.97 L Est GFR (MDRD) Non-Af 9 L BUN/Creatinine Ratio 7.6 L Glucose 132 H Calcium 9.1 Radiography Diagnostic Testing: Clinical Impression(s) from Imaging Studies Chest X-Ray 10/31/24 02:30 IMPRESSION: Findings concerning for right middle lobe pneumonia. Recommend continued radiologic follow-up to document resolution. Prior median sternotomy. Mild pulmonary hyperinflation. No sizable pleural effusion. Mild elevation right [facility] Discussion w/another healthcare provider: Hospitalist Discharge Plan Triage Chief Complaint: General Illness ED Provider: Jimy Jarquin Dx/Rx/DC Orders Clinical Impression: Pneumonia, Hypoxemia, Failure of outpatient treatment, ESRD on hemodialysis Prescriptions: No Action metoprolol tartrate 25 mg tablet 25 mg PO BID pravastatin 40 mg tablet 40 mg PO QHS ondansetron 4 mg tablet,disintegrating 4 mg PO BID PRN (Reason: Nausea) aspirin 81 mg tablet,delayed release (DR/EC) 81 mg PO DAILY cholecalciferol (vitamin D3) 125 mcg (5,000 unit) capsule 125 mcg PO DAILY Renal-Svetlana 0.8 mg tablet 1 tab PO QDAY oxycodone 10 mg tablet 10 mg PO TID PRN (DME) hydrocortisone 2.5%/lidocaine 5% suppository (compound) Suppository See Rx Instructions .ROUTE Qty: 30 1RF Rx Instructions: insert rectum twice daily hydrocortisone [Proctozone-HC] 2.5 % cream with perineal applicator 1 applic IA QD-BID PRN (Reason: hemorrhoids) Qty: 30 0RF amoxicillin-pot clavulanate [Augmentin] 500-125 mg tablet 1 tab PO QDAY Qty: 5 0RF Rx Instructions: Take once a day. Take after dialysis. peg 3350-electrolytes 236-22.74-6.74 -5.86 gram recon soln 4,000 ml PO ONCE Qty: 4000 0RF Rx Instructions: until fecal effluent is clear; do not exceed a total volume of 4000 mL Primary Care Provider: Marlo Pollard Referrals: Marlo Pollard DO [Primary Care Provider] - Print Language: Finnish Disposition Disposition: Acute Care Hospital [facility] What to do if you have Problems For any increased pain, shortness of breath, bleeding, nausea or vomiting, chestpain, or any unexpected problems, contact your Primary Care Provider. Call [facility] ([phone]) or report to the closest Emergency Room. Call 911 if necessary. 10/31/24 0346 <Electronically signed by Jimy Jarquin MD> Cosigner Signature (if applicable): CC: Dr. Marlo Pollard DO ~ Signed [facility] Work Phone: Evaluation note* Diagnosis Onset Date Resolution Status Chronic renal failure, stage 4 (severe) chronic [facility] Work Phone: Evaluation noteNo assessment information available [facility] Work Phone: Evaluation note* Diagnosis Suspected 2019 novel coronavirus infection [facility] Elidia Cunningham [facility] Note Date/Time October 31, 2024 4:10 am [facility] Medical Records Department [address] [place] [address] H&P Exam - Hospitalist 10/31/247 MR#: [id number] Acct: [id number] Name: MARLO ADAMSON Rodrigo Rep #:[id number] : 1960 64 From: Elidia Cunningham MD PCP: Dr. Marlo Pollard DO Status:ADM IN Location: [facility] [place] [id number] HPI - General General Date of Admission: 10/31/24 Date of Service: 10/31/24 Chief Complaint: Cough, congestion, dyspnea, recent outpatient abx. HPI Narrative The patient is a 64-year-old male with past medical history M w/ PMHx: PCKD w/ ESRD (T-F), CAD s/p PCI, HTN, HLD, GERD, Tobacco use, Hx VTE (DVT) who presents to the [facility] ED on 10/31/24 with congestion, fatigue, malaise, productive cough with worsening dyspnea over the last 5 days with recent outpatient PCP evaluation with initiation on doxycycline which has been taking with some mild improvement over the last couple days however he notes he has been attempting his home dialysis and unfortunately twice now the machine isshut down with his blood in the dialyzer unfortunately not returning the entire amount and has been concerned for worsened anemia prompting eventual ED evaluation. Workup in the ED included T98.9, heart rate 88, BP 144/86, respiratory rate 17, 90% room air-->85% dropped on room air, CBC with WBC 16.4, hemoglobin 14.4, platelet 187 with left shift, BMP with sodium 132, chloride 89,BUN/creatinine 48/6.33, glucose 132, chest x-ray with findings concerning for right middle lobe pneumonia, evidence of prior median sternotomy, mild pulmonaryhyperinflation. In the ED patient ministered IV Zosyn therapy. [facility] Medical History (Updated 10/31/24 @ 04:[address] Elidia Cunningham MD) Tobacco use ESRD on hemodialysis (~10/31/24) Wears dentures Marijuana use Polycystic renal disease DVT (deep venous thrombosis) High cholesterol History of echocardiogram Cardiology follow-up encounter Hypertension Hemorrhoids, internal GERD (gastroesophageal reflux disease) Myocardial infarction HTN (hypertension) Osteoarthritis Anxiety and depression CAD (coronary artery disease) Home Medications ?Medication ?Instructions ?Recorded ?Last Taken ?Type aspirin 81 mg tablet,delayed 81 mg PO DAILY 05/29/21 U nknown History release cholecalciferol (vitamin D3) 125 125 mcg PO DAILY 09/17 Unknown History mcg (5,000 unit) capsule metoprolol tartrate 25 mg tablet 25 mg PO BID 05/29/21 Unknown History ondansetron 4 mg disintegrating 4 mg PO BID PRN Nausea 05/29/21 Unknown History tablet pravastatin 40 mg tablet 40 mg PO QHS 05/29/21 Unknow n History Hydrocortisone 2.5%/lidocaine 5% #30 ea 10/13/24 Unkno wn Rx suppository (cmpd) (hydrocortisone 2.5%/lidocaine 5% suppository (compound)) hydrocortisone 2.5 % topical cream 1 applic IA QD-BID PRN hemorrhoids 10/13/24 Unknown Rx with perineal applicator #30 grams (Proctozone-HC) oxycodone 10 mg tablet 10 mg PO TID PRN pain Unknown History vitamin B complex-vitamin C-folic 1 tab PO QDAY Unknown History acid 0.8 mg tablet (Renal-Svetlana) peg 3350-electrolytes 236 4,000 ml PO ONCE #4,000 mL 0 10/27/24 Unknown Rx gram-22.74 gram-6.74 gram-5.86 gram solution calcitriol 0.25 mcg capsule 0.25 mcg PO DAILY 10/31/24 Unknown History doxycycline monohydrate 100 mg 100 mg PO BID 10/31/24 Unknown History tablet lidocaine-prilocaine 2.5 %-2.5 % topical DAILY 5 Unknown History topical cream Allergy/AdvReac Type Severity Reaction Status Date / Time atorvastatin (From Lipitor) AdvReac MUSCLE ACHE Verified 10/13/24 14:15 Family History (Updated 10/31/24 @ 04:[address] Elidia Cunningham MD) Father Cancer abdominal tumor--unsure type Brother Heart disease Sister Brain mass Mother Brain aneurysm Surgical History History of arteriovenostomy for renal dialysis (~05/2021) Hx of left knee surgery History of esophagogastroduodenoscopy (EGD) Hx of cystoscopy History of cardiac catheterization History of coronary artery bypass graft History of heart artery stent Social History (Updated 10/31/24 @ 04:[address] Elidia Cunningham MD) household members: none Smoking Status: Current every day smoker tobacco type: cigarettes Smoking packsper day: 1 Smoking cigarettes per day: 20.0 quit status: considering quitting alcohol intake: former substance use type: does not use ROS ROS Narrative Admission Review of Systems: CONSTITUTIONAL: No weight loss, fever, chills, + weakness or fatigue. HEENT: + Congestion, rhinorrhea. Eyes: No visual loss, blurred vision, double vision or yellow sclerae. Ears, Nose, Throat: No hearing loss, sneezing, sore throat. SKIN: No rash or itching, lesions, wounds. CARDIOVASCULAR: No chest pain, chest pressure or chest discomfort, palpitations,edema, orthopnea, syncopal events. RESPIRATORY: + shortness of breath, cough with sputum. No wheezing, hemoptysis. GASTROINTESTINAL: + anorexia, nausea. No vomiting or diarrhea, abdominal pain, melena, BRBPR. GENITOURINARY: No dysuria, frequency, urgency or retention. NEUROLOGICAL: No headache, dizziness, syncope, paralysis, ataxia, numbness or tingling in the extremities, focal weakness, change in bowel or bladder control,seizure. MUSCULOSKELETAL: + muscle, back pain, joint pain or stiffness. HEMATOLOGIC: No anemia, bleeding or bruising. LYMPHATICS: No enlarged nodes. No history of splenectomy. PSYCHIATRIC: No history of depression or anxiety. ENDOCRINOLOGIC: No reports of sweating, cold or heat intolerance. No polyuria orpolydipsia. ALLERGIES: No history of asthma, hives, eczema or rhinitis. Vital Signs Vital Signs Vital Signs: 10/31/24 01:58 10/31/24 02:06 10/31/24 02:14 Temperature 98.9 F Temperature Source Oral Pulse Rate 88 Respiratory Rate 17 Respiratory Effort Short of Breath Respiratory Pattern Normal Blood Pressure 144/86 H Blood Pressure Mean 105 Pulse Ox 90 85 Oxygen Delivery Method Room Air Room Air Oxygen Flow Rate (L/min) 10/31/24 03:45 Temperature 98.1 F Temperature Source Oral Pulse Rate 76 Respiratory Rate 16 Respiratory Effort Respiratory Pattern Blood Pressure 146/69 H Blood Pressure Mean 94 Pulse Ox 92 Oxygen Delivery Method Nasal Cannula Oxygen Flow Rate (L/min) 3 Weight Weight: 158 lb 4.67 oz Body Mass Index (BMI) 22.7 Physical Exam Narrative Physical Examination: General: Awake, alert, oriented x 3 and cooperative, seated upright in the ED bed, fatigued, ill-appearing. Skin: Normal color, normal turgor, no icterus, no cyanosis. HEENT: AT/NC, EOMI, PERRLA, MMM, no carotid bruits or JVD noted. Lungs: Diminished, greater bases, mildly decreased effort, no evidence of any distress, despite imaging no appreciated rales, ronchi or wheezing. Heart: Regular rate and rhythm; no gallop, rub audible. Abdomen: Soft, NTTP, ND, hyperactive BS, no appreciated HSM. Extremities: No cyanosis, clubbing, or edema, + left upper extremity with + AVF thrill. Neurological: Patient awake, alert, oriented as noted, cognitive function intact; pupils equally reactive to light and accommodation, cranial nerves grossly normal, moving all 4 extremities, no focal deficits, strength moderatelyglobally decreased Psychiatric: Affect appears flat, fatigued, no acute evidence of depressive or anxiety feelings but does have underlying history. Results Lab / Micro Data 10/31/24 02:12 10/31/24 02:12 Labs: Laboratory Results - last 24 hr 10/31/24 02:12: WBC 16.4 H, RBC 4.57 L, Hgb 14.4, Hct 40.9, MCV 89.5, MCH 31.5, MCHC 35.2, RDW Std Deviation 44.1 H, RDW Coeff of Fito 13.5, Plt Count 197, MPV 9.7, Immature Gran % (Auto) 1.500 H, Neut % (Auto) 85.8 H, Lymph % (Auto) 5.3 L,Curry % (Auto) 7.1, Eos % (Auto) 0.1, Baso % (Auto) 0.2, Absolute Neuts (auto) 14.1 H, Absolute Lymphs (auto) 0.86, Nucleated RBC % 0, Sodium 132 L, Potassium 3.3, Chloride 89 L, Carbon Dioxide 25.2, Anion Gap 18 H, BUN 48 H, Creatinine 6.33 H, Estim Creat Clear Calc 11.97 L, Est GFR (MDRD) Non-Af 9 L, BUN/Creatinine Ratio 7.6 L, Glucose 132 H, Calcium 9.1 Imaging Radiology Impression Chest X-Ray 10/31/24 02:30 IMPRESSION: Findings concerning for right middle lobe pneumonia. Recommend continued radiologic follow-up to document resolution. Prior median sternotomy. Mild pulmonary hyperinflation. No sizable pleural effusion. Mild elevation right Reading Location: [facility] Assessment & Plan Assessment/Plan (1) Hypoxemia: (2) Pneumonia: (3) Failure of outpatient treatment: PLAN: Plan The patient is a 64-year-old male with past medical history M w/ PMHx: PCKD w/ ESRD, CAD s/p PCI, HTN, HLD, GERD, Tobacco use, Hx VTE (DVT) who presents to [facility] ED on 10/31/24 with congestion, fatigue, malaise, productive cough with worsening dyspnea over the last 5 days with recent outpatient PCP evaluation with initiation on doxycycline which has been taking with some mild improvement over the last couple days however he has had increased dyspnea prompting evaluation. #1. Acute Hypoxia secondary to Acute right middle lobe pneumonia, failed outpatient abx therapy: Will admit to [facility], maintain on oxygen with wean as tolerated to room air, continue ATC duonebs, PRN albuterol, maintain on IV Zosyngiven failed outpatient antibiotic therapy w/ MRSA screen requested to be cautious, HOB, IS parameters w/ pending sputum cultures, full respiratory viral panel and urine antigens. #2. PCKD with ESRD: Uses HD at home 4 days weekly, last usage just prior to presentation, following with Dr. Shirley. #3. CAD: Status post PCI and CABG x 4, continue aspirin, statin, metoprolol, not on VALERY inhibitor/ARB. #4. Hypertension: Continue home regimen including metoprolol, PRN hydralazine. #5. Hyperlipidemia: Continue patient on statin therapy. #6. GERD: Per current list not on regimen, will have as needed Mylanta. #7. History of VTE: Chart history with previous DVT, will maintain on chemoprophylaxis as noted. #8. Tobacco Abuse: Encouraged cessation, inpatient consultation per RT, NR if desired. #9. DVT prophylaxis: Heparin. #10. CODE status: Patient does not have healthcare power of consumer attorney or living will in place but he notes that he would want his ex- Nabila Triplett to be his medical decision-maker if necessary. Discussed CODE status at length including difference between FULL code, DNR-CCA and DNR-CC status. Following discussions about the differences in these status, requested Full Code status. Advanced CarePlanning Face to Face Time: 16 minutes. Charges/Coding Visit Charges Inpatient E&M: 02676 Init Hosp L3 Procedures Hospitalists Procedures: 88604 Advncd Care Plan 30 Min 10/31/24 0410 <Electronically signed by Elidia Cunningham MD> Cosigner Signature (if applicable): CC: Dr. Elidia Cunningham MD; Dr. Marlo Pollard DO~ Signed [facility] Work Phone: Progress note Author Ying Shirley [facility] Note Date/Time November 02, 2024 12:1 9pm [facility] Medical Records Department [address] [place] [id number] Progress Note - Nephrology 11/02/24 1216 MR#: [id number] Acct: [id number] Name: MARLO ADAMSON Rep #:[id number] : 1960 64 From: Ying alfaro MD PCP: Dr. Marlo Pollard, DO Status:ADM IN Location: [place] [address] Subjective Subjective no new complaints Objective Data Objective Data Vital Signs: Vital Signs Temp Pulse Resp BP Pulse Ox O2 Del Method O2 Flow Rate 97.8 F 75 18 144/70 H 95 Room Air 2 11/02/24 08:10 11/02/24 09:16 11/02/24 08:10 11/02/24 09:16 11/02/24 08:35 11/02/24 08:35 11/02/24 03:44 Oxygen Flow Rate (L/min) 2 Oxygen Delivery Method Room Air Weight: 70.6 kg Body Mass Index (BMI) 22.2 Intake & Output: Intake and Output for Last 24 Hours 10/31/24 11/01/24 11/02/24 23:59 23:59 23:59 Intake Total 250 / 550 1685 / 1685 450 / 450 Output Total 0 / 0 200 / 200 200 / 200 Balance 250 / 550 1485 / 1485 250 / 250 Medical Nutrition Assessment Dietitian: Malnutrition Criteria Met Start: 10/31/24 17:11 Freq: Status: Active Protocol: Document 10/31/24 17:11 RMA (Rec: 10/31/24 17:11 RMA [id number]) Nutrition Malnutrition Evidence of Yes Malnutrition Exists Malnutrition (severe Acute Illness/Injury ): Evidenced By Suboptimal Energy Intake (Severe),Weight Loss (Severe) Clinical Problem Acute Disease or Injury Related Malnutrition Etiology severe pro-damion malnutrition in the context of acute illness related to inadequate oral intake and inadequate energy intake Signs/Symptoms as evidenced by ~5-6% unintentional weight loss x past 1 month and PO meeting less than 75% of estimated nutrition needs x 1 month; BMI 22.2 Status Active Problem Recommendation Dietitian Will continue cardiac diet for now and restrict diet Recommendations/ for renal parameters as needed. Changes Will add 120mL PO Nepro 3 times per day w/ meals. Liberalize diet as needed to optimize oral intake. Lab / Micro Data 11/02/24 07:12 11/02/24 07:12 Labs: Laboratory Results - last 24 hr 11/02/24 07:12: WBC 7.6, RBC 3.99 L, Hgb 12.4 L, Hct 36.8 L, MCV 92.2, MCH 31.1,MCHC 33.7, RDW Std Deviation 46.2 H, RDW Coeff of Fito 13.6, Plt Count 218, MPV 9.4, Immature Gran % (Auto) 2.100 H, Neut % (Auto) 73.4 H, Lymph % (Auto) 12.6 L, Curry % (Auto) 9.8, Eos % (Auto) 1.7, Baso % (Auto) 0.4, Absolute Neuts (auto) 5.6, Absolute Lymphs (auto) 0.96, Nucleated RBC % 0, Sodium 134, Potassium 3.8, Chloride 98, Carbon Dioxide 20.8 L, Anion Gap 14, BUN 41 H, Creatinine 5.94 H, Estim Creat Clear Calc 12.55 L, Est GFR (MDRD) Non-Af 10 L, BUN/Creatinine Ratio 7.0 L, Glucose 88, Calcium 8.9 Micro: Microbiology 10/31/24 12:05 Sputum, Expectorated/Coughed Gram Stain - Final 10/31/24 12:05 Sputum, Expectorated/Coughed Respiratory Culture - Final Mixed normal respiratory jose enrique. No Streptococcus pneumoniae, beta-hemolytic Streptococcus or Staphylococcus aureus isolated. 11/01/24 03:22 Stool Stool Lactoferrin - Final 11/01/24 03:22 Stool Enteric Bacteriology - Final 11/01/24 03:22 Stool Stool Occult Blood (PAULIE) - Final 11/01/24 03:22 Stool Clostridioides difficile (PCR) - Final 10/31/24 12:05 Urine, Clean Catch Legionella Antigen - Final 10/31/24 12:05 Urine, Clean Catch Streptococcus pneumoniae Antigen (M - Final 10/31/24 04:50 Nasal Secretion MRSA (PCR) - Final Meth. resistant Staph. aureus 10/31/24 04:41 Mucosa - Nasopharyngeal Respiratory Panel (PCR) - Final Physical Exam Narrative Alert and oriented x 3, no apparent distress S1, S2, RRR Lungs sound diminished. On room air. No rales or rhonchi Abdomen soft, nontender No edema Left forearm AV fistula accessed for hemodialysis Assessment & Plan Assessment/Plan (1) ESRD (end stage renal disease): PLAN: Plan Patient has history of ESRD secondary to polycystic kidney disease and is on home hemodialysis 4 days weekly via AVF. received HD yesterday. looks ok. wantsto go home. likely a little hypercoagulable in setting of infection. called and spoke to staff at dialysis unit. will use heparin with HD for couple weeks. if any further issues will arrange for a fistulogram. spoke to HD nurse. he ran ok until last 15 min or so. dw hospitalist 11/02/24 1219 <Electronically signed by Ying Shirley MD> Cosigner Signature (if applicable): CC: ~ Signed [facility] Work Phone: Reason for referral (narrative)No reason for referral information availableWBrecksville [facility] Work Phone: Summary Purpose Family History No Family History Records Found Relationship Condition Age at Onset Recorded Date/T hilary father Malignant neoplasm Unknown Relationship Condition Age at Onset Recorded Date/T hilary father Malignant neoplasm Unknown brother Cardiac disease Unknown sister Mass of brain Unknown mother Cerebral aneurysm Unknown Advance Directives No Advanced Directives Records Found Advance Directive Response Recorded Date/ Time Living Will Yes June 06, 021 2:53pm Power of Heel Cutter Yes June 06, 2021 2:53pm Advance Directive Response Recorded Date/ Time Living Will Yes June 06, 021 1:53pm Power of Heel Cutter Yes June 06, 2021 1:53pm Advance Directive Response Recorded Date/ Time Living Will No October 31, 2024 2:04am Do you have a Healthcare Power of Heel Cutter? No October 31, 2024 2:04am Advance Directive Response Recorded Date/ Time Living Will No October 31, 2024 4:07am Do you have a Healthcare Power of Heel Cutter? No October 31, 2024 4:07am Advance Directive Response Recorded Date/ Time Living Will No October 31, 2024 4:07am Do you have a Healthcare Power of Heel Cutter? No October 31, 2024 4:07am Do you have a Healthcare Power of Heel Cutter? Yes December 21, 2024 9:34am Advance Directive Response Recorded Date/ Time Living Will No October 31, 2024 4:07am Do you have a Healthcare Power of Heel Cutter? No October 31, 2024 4:07am Do you have a Healthcare Power of Heel Cutter? No January 07, 2025 9:36am Do you have a Healthcare Power of Heel Cutter? Yes December 21, 2024 9:34am Chief Complaint and Reason for Visit Chief Complaint FISTULA F/U Reason for Visit Chronic renal failur e, stage 4 (severe) Chief Complaint CHRONIC KIDNEY DISEA SE Chief Complaint Admit Date CYST ON BUTTOCK October 13, 2024 1:5 2pm HYPOXIA, PNA October 31, 2024 3:49 am Reason for Visit Admit Date Anal fistula October 13, 2024 1:5 2pm Hemorrhoids, internal, with bleeding [facility] 2024 1:52pm Screening for colon cancer October 13, 2 025 1:52pm Failure of outpatient treatment October 3:49am Hypoxemia October 31, 2024 3:49 am Pneumonia October 31, 2024 3:49 am Chief Complaint Admit Date CYST ON BUTTOCK October 13, 2024 1:5 2pm HYPOXIA, PNA October 31, 2024 3:49 am HYPOXIA, PNA November 01, 2024 7:50 am HYPOXIA, PNA November 02, 2024 7:11 am Reason for Visit Admit Date Anal fistula October 13, 2024 1:5 2pm Hemorrhoids, internal, with bleeding [facility] 2024 1:52pm Screening for colon cancer October 13, 2 025 1:52pm ESRD (end stage renal disease) October 3:49am Failure of outpatient treatment October 3:49am Hypoxemia October 31, 2024 3:49 am Pneumonia October 31, 2024 3:49 am Reason for Visit Admit Date Anal fistula October 13, 2024 1:5 2pm Hemorrhoids, internal, with bleeding [facility] 2024 1:52pm Screening for colon cancer October 13, 2 025 1:52pm Failure of outpatient treatment October 3:49am Hypoxemia October 31, 2024 3:49 am Pneumonia October 31, 2024 3:49 am ESRD (end stage renal disease) October 3:49am Anal fistula December 22, 2024 6:11a m Hemorrhoids, internal, with bleeding December 22, 2024 6:11am Screening for colon cancer December 22 6:11am Chief Complaint Admit Date CYST ON BUTTOCK October 13, 2024 1:5 2pm HYPOXIA, PNA October 31, 2024 3:49 am HYPOXIA, PNA November 01, 2024 7:50 am HYPOXIA, PNA November 02, 2024 7:11 am Exam Under Anesthesia hemorrhoidectomy a nd possibl January 21, 2025 9:48am Exam Under Anesthesia hemorrhoidectomy a nd possibl January 21, 2025 10:04am Additional Source Comments (unrecognized sect ion and content) No Status Records FoundNo Status Records Found INFORMATION SOURCE (unrecogn ized section and content) DATE CREATED AUTHOR 09/13/2021 [facility] DATE CREATED AUTHOR AUTHOR'S ORGANIZ ATION 01/24/2025 [facility] Goals (unrecognized section and content) Goals may be documented in a n alternate sectionGoals may be documented in an alternate sectionGoals may be documented in an alternate sectionGoals may be documented in an alternate section Care Teams (unrecognized sec tion and content) Team Status: Active Member Role Status Dates Dr. To Wilkes III, MD Family Provider Active Dr. Marlo Pollard DO Primary Care Provider Active Team Status: Inactive Member Role Status Dates Dr. Marlo Pollard DO Primary Care Provider Active Dr. Ying Shirley MD Attending Provider Active Team Status: Inactive Member Role Status Dates Dr. Marlo Pollard DO Primary Care Provider Active Dr. Ying Shirley MD Attending Provider, Referri ng Provider Active School Clerk Relationship Specialty Start Date End Date To Wilkes III, MD NO FORWARDING ADDRESS PCP - General 04/03/04 Team Status: Active Member Role Status Dates Dr. Marlo Pollard DO Primary Care Provider Active Team Status: Inactive Member Role Status Dates Dr. Marlo Pollard DO Primary Care Provider Active Start: October 13, 2024 End: October 13, 2024 Dr. Marlo Pollard DO Referring Provider Active Start: October 13, 2024 End: October 13, 2024 Dr. Maria Ines Mckoy MD Attending Provider Active Start: October 13, 2024 End: October 13, 2024 Team Status: Active Member Role Status Dates Dr. Marlo Pollard DO Primary Care Provider Active Start: October 31, 2024 Dr. Jimy Jarquin MD Emergency Provider Active Start: October 31, 2024 Dr. Elidia Cunningham MD Admit Provider Active St art: October 31, 2024 Dr. Elidia Cunningham MD Attending Provider Active Start: October 31, 2024 Dr. Elidia Cunningham MD Other Provider Active St art: October 31, 2024 Team Status: Inactive Member Role Status Dates Dr. Marlo Pollard DO Primary Care Provider Active Start: October 31, 2024 End: November 02, 2024 Dr. Jimy Jarquin MD Emergency Provider Active Start: October 31, 2024 End: November 02, 2024 Dr. Elidia Cunningham MD Admit Provider Active St art: October 31, 2024 End: November 02, 2024 Dr. Elidia Cunningham MD Other Provider Active St art: October 31, 2024 End: November 02, 2024 Dr. Ying Shirley MD Other Provider Active Start: October 31, 2024 End: November 02, 2024 Dr. Himanshu Almaguer DO Attending Provider Active Start: October 31, 2024 End: November 02, 2024 Dr. Chirag Lucero MD Other Provider Active Sta rt: October 31, 2024 End: November 02, 2024 Team Status: Active Member Role Status Dates Dr. Marlo Pollard DO Primary Care Provider Active Start: November 01, 2024 Dr. Jimy Jarquin MD Emergency Provider Active Start: November 01, 2024 Dr. Elidia Cunningham MD Admit Provider Active St art: November 01, 2024 Dr. Elidia Cunningham MD Other Provider Active St art: November 01, 2024 Dr. Ying Shirley MD Other Provider Active Start: November 01, 2024 Dr. Himanshu Almaguer DO Attending Provider Active Start: November 01, 2024 Dr. Himanshu Almaguer DO Other Provider Active Star t: November 01, 2024 Dr. Chirag Lucero MD Other Provider Active Sta rt: November 01, 2024 Team Status: Active Member Role Status Dates Dr. Marlo Pollard DO Primary Care Provider Active Start: November 02, 2024 Dr. Jimy Jarquin MD Emergency Provider Active Start: November 02, 2024 Dr. Elidia Cunningham MD Admit Provider Active St art: November 02, 2024 Dr. Elidia Cunningham MD Other Provider Active St art: November 02, 2024 Dr. Ying Shirley MD Other Provider Active Start: November 02, 2024 Dr. Himanshu Almaguer DO Attending Provider Active Start: November 02, 2024 Dr. Himanshu Almaguer DO Other Provider Active Star t: November 02, 2024 Dr. Chirag Lucero MD Other Provider Active Sta rt: November 02, 2024 Team Status: Inactive Member Role Status Dates Dr. Marlo Pollard DO Primary Care Provider Active Start: December 22, 2024 End: December 22, 2024 Dr. Marlo Pollard DO Referring Provider Active Start: December 22, 2024 End: December 22, 2024 Dr. Maria Ines Mckoy MD Attending Provider Active Start: December 22, 2024 End: December 22, 2024 Team Status: Active Member Role Status Dates Dr. Marlo Pollard DO Primary Care Provider Active Start: December 22, 2024 Dr. Marlo Pollard DO Referring Provider Active Start: December 22, 2024 Dr. Maria Ines Mckoy MD Attending Provider Active Start: December 22, 2024 Dr. Maria Ines Mckoy MD Other Provider Active S tart: December 22, 2024 Team Status: Active Member Role/Relationship Status Dates Dr. Marlo Pollard DO Primary Care Provider Active Team Status: Inactive Member Role/Relationship Status Dates Dr. Marlo Pollard DO Primary Care Provider Active Start: October 13, 2024 End: October 13, 2024 Dr. Marlo Pollard DO Referring Provider Active Start: October 13, 2024 End: October 13, 2024 Dr. Maria Ines Mckoy MD Attending Provider Active Start: October 13, 2024 End: October 13, 2024 Team Status: Inactive Member Role/Relationship Status Dates Dr. Marlo Pollard DO Primary Care Provider Active Start: October 31, 2024 End: November 02, 2024 Dr. Jimy Jarquin MD Emergency Provider Active Start: October 31, 2024 End: November 02, 2024 Dr. Elidia Cunningham MD Admit Provider Active St art: October 31, 2024 End: November 02, 2024 Dr. Elidia Cunningham MD Other Provider Active St art: October 31, 2024 End: November 02, 2024 Dr. Ying Shirley MD Other Provider Active Start: October 31, 2024 End: November 02, 2024 Dr. Himanshu Almaguer DO Attending Provider Active Start: October 31, 2024 End: November 02, 2024 Dr. Chirag Lucero MD Other Provider Active Sta rt: October 31, 2024 End: November 02, 2024 Team Status: Active Member Role/Relationship Status Dates Dr. Marlo Pollard DO Primary Care Provider Active Start: November 01, 2024 Dr. Jimy Jarquin MD Emergency Provider Active Start: November 01, 2024 Dr. Elidia Cunningham MD Admit Provider Active St art: November 01, 2024 Dr. Elidia Cunningham MD Other Provider Active St art: November 01, 2024 Dr. Ying Shirley MD Other Provider Active Start: November 01, 2024 Dr. Himanshu Almaguer DO Attending Provider Active Start: November 01, 2024 Dr. Himanshu Almaguer DO Other Provider Active Star t: November 01, 2024 Dr. Chirag Lucero MD Other Provider Active Sta rt: November 01, 2024 Team Status: Active Member Role/Relationship Status Dates Dr. Marlo Pollard DO Primary Care Provider Active Start: November 02, 2024 Dr. Jimy Jarquin MD Emergency Provider Active Start: November 02, 2024 Dr. Elidia Cunningham MD Admit Provider Active St art: November 02, 2024 Dr. Elidia Cunningham MD Other Provider Active St art: November 02, 2024 Dr. Ying Shirley MD Other Provider Active Start: November 02, 2024 Dr. Himanshu Almaguer DO Attending Provider Active Start: November 02, 2024 Dr. Himanshu Almaguer DO Other Provider Active Star t: November 02, 2024 Dr. Chirag Lucero MD Other Provider Active Sta rt: November 02, 2024 Team Status: Inactive Member Role/Relationship Status Dates Dr. Marlo Pollard DO Primary Care Provider Active Start: December 22, 2024 End: December 22, 2024 Dr. Marlo Pollard DO Referring Provider Active Start: December 22, 2024 End: December 22, 2024 Dr. Maria Ines Mckoy MD Attending Provider Active Start: December 22, 2024 End: December 22, 2024 Team Status: Active Member Role/Relationship Status Dates Dr. Marlo Pollard DO Primary Care Provider Active Start: December 22, 2024 Dr. Marlo Pollard DO Referring Provider Active Start: December 22, 2024 Dr. MariaI nes Mckoy MD Attending Provider Active Start: December 22, 2024 Dr. Maria Ines Mckoy MD Other Provider Active S tart: December 22, 2024 Team Status: Inactive Member Role/Relationship Status Dates Dr. Marlo Pollard DO Primary Care Provider Active Start: January 21, 2025 End: January 21, 2025 Dr. Maria Ines Mckoy MD Attending Provider Active Start: January 21, 2025 End: January 21, 2025 Dr. Maria Ines Mckoy MD Referring Provider Active Start: January 21, 2025 End: January 21, 2025 Team Status: Active Member Role/Relationship Status Dates Dr. Marlo Pollard DO Primary Care Provider Active Start: January 21, 2025 Dr. Maria Ines Mckoy MD Attending Provider Active Start: January 21, 2025 Dr. Maria Ines Mckoy MD Referring Provider Active Start: January 21, 2025 Dr. Maria Ines Mckoy MD Other Provider Active S tart: January 21, 2025 Source Comments (unrecognize d section and content) In the event this informatio n is protected by the Federal Confidentiality of Alcohol and Drug Abuse Patient Records regulations: The Federal rules restrict any use of the information to criminally investigate or prosecute any alcohol or drug abuse patient.[facility] FOR RECORDS PERTAINING TO PATIENTS WHO ARE OR HAVE BEEN ENROLLED IN A CHEMICAL DEPENDENCY/SUBSTANCEABUSE PROGRAM, SOME INFORMATION MAY BE OMITTED. This clinical summary was aggregated from multiple sources. Caution should be exercised in using it in the provision of clinical care. This summary normalizes information from multiple sources, and as a consequence, information in this document may materially change the coding, format and clinical context of patient data. In addition, data may be omitted in some cases. CLINICAL DECISIONS SHOULD BE BASED ON THE PRIMARY CLINICAL RECORDS. [facility]. provides no warranty or guarantee of the accuracy or completeness of information in this document.
[2025-01-30 02:25] LABS: Hematocrit 42.2 % (40-54); Hemoglobin 14.4 g/dL (13.0-16.5); Immature Granulocytes Count 0.050 X10^3/uL (0.0-0.0); Mean Corp Hgb Conc 34.1 g/dL (32-36); Mean Corpuscular Volume 91.9 fL (80-94); Mean Platelet Vol. 9.1 fl (6.2-12.0); NRBC Flagged by Analyzer 0 % (0-5); Platelet Count 181 K/mm3 (150-450); RBC Distribution Width CV 14.3 % (11.6-14.6); RBC Distribution Width SD 48.0 fl (35.1-43.9); Red Blood Count 4.59 M/mm3 (4.6-6.2); White Blood Count 10.8 K/mm3 (4.4-11.0)
[2025-01-30] MEDS: Lidocaine/Epi/Tetracaine 50 ML 1 APPLIC TOPICAL (02:35)
[2025-01-30 02:44] LABS: Prothrombin Time (Protime)PT. 13.6 SECONDS (11.7-14.9)
[2025-01-30 02:46] LABS: Partial Thromboplast Time 30.6 Seconds (24.1-36.2)
[2025-01-30 02:48] LABS: Anion Gap 15 (5-15); BUN 41 mg/dL (4-19); BUN/Creat Ratio 5.0 RATIO (10-20); Calcium,Total 9.7 mg/dL (7.6-11.0); Carbon Dioxide 25.4 mmol/L (21.0-32.0); Chloride 92 mmol/L (98-108); Estimated Creatinine Clearance 9.51 ml/min (50-250); Glucose 131 mg/dL (70-99); Potassium 4.4 mmol/L (3.3-5.1)
--- OUTSIDE RECORDS SUMMARY | 2025-01-30 04:34 | XMS RPT_ITS | CCD ---
Author Organization [facility] Care Team Providers Care Room Designer Name Role Phone Dr. Marlo Pollard Primary Care Provider Dr. Marlo Pollard Referring Provider [phone] Marina FIORE PANel Easley Attending Provider Abiola MALONE MD, To Garcia Primary Care Provider Rubia vailable Dr. Marlo Pollard DO Primary Care Provider Dr. Marlo Pollard DO Referring Provider Dr. Maria Ines Mckoy MD Attending Provider [phone] Dr. Jimy Jarquin MD Emergency Provider Octavio [...] Care Unavailable Leelee, Maria Ines Attending Unavailable [facility]lo Primary Care Unavailable White, Elidia L Consulting Unavailable White, Elidia L Admitting Unavailable Renzo Almagueric Attending Unavailable Fern, Mickyaprakas Consulting Unavailable Nic, Chirag Consulting Unavailable Allergies Allergy Classification Reported Allergen(s) Allergy Type Date of Onset Reaction(s) Facility (7 sources) atorvastatin Drug Allergy 2 MUSCLE ACHE [facility] (1 source) atorvastatin Drug Allergy 0 Other: See Comments [facility] (1 source) atorvastatin Drug Allergy 5 [facility] Repository Medications Current Medications Medication Drug Class(es) [...] PO daily October 13, 2024 12:00am calcitriol 0.77620 mg oral capsule (4 sources) Vitamin D3 [...] December 21, 2024 9:32am polyethylene glycol 3350 539705 mg / potassium chloride 2970 mg / sodium bicarbonate 6740 mg / sodium chloride 5860 mg / sodium sulfate 45507 mg powder for oral solution (4 sources) [...] Coronary arteriosclerosis; Translations: [Atherosclerotic heart disease of [place] coronary artery without angina pectoris] Onset: 08-27-2011 [...] Test Name Value Interpretation Reference Range Facility MR/[id number] 01-24-2025 MR/POSTCHRISTIANON2 [facility] Medical Records Department [address] [place] [address] Anesthesia Postop Eval II 01/24/25 1004 MR#: [id number] Acct: [id number] Name: MARLO ADAMSON Rep #: [id number] : 1960 64 From: Isacc Cavanaugh MD PCP: Dr. Marlo Pollard, DO Status:DEP [facility] [place] Race: C [place]: [facility] Anesthesia Postop Eval I Sum Postop Eval Completion status Anesthesia document: Postop Eval 1 completed: Yes Anesthesia Postop Eval I Summary Anesthesia Postop Eval I Summary: Anesthesia Postop Eval I: Assessment Summary Airway patent Yes 01/21/25 14:30 COSMETICIAN APPRENTICE.JSWI Spontaneous unlabored Yes 01/21/25 14:30 COSMETICIAN APPRENTICE.JSWI respirations Mental status Awake 01/21/25 14:30 COSMETICIAN APPRENTICE.JSWI nausea No 01/21/25 14:30 COSMETICIAN APPRENTICE.JSWI Vomiting No 01/21/25 14:30 COSMETICIAN APPRENTICE.JSWI Anesthesia Postop Eval I: Fluid Summary Crystalloid volume administer 200 01/21/25 14:30 COSMETICIAN APPRENTICE.JSWI (ml) Colloids volume administered ( ml) Blood Product volume administered (ml) Total IV fluid infused 200 01/21/25 14:30 COSMETICIAN APPRENTICE.JSWI Anesthesia Postop Eval I: Summary Notes Anesthesia Complication No 01/21/25 14:30 COSMETICIAN APPRENTICE.JSWI Anesthesia Complication Comment: Post-operative progress note Anesthesia: Postop Eval II Evaluation Mental status: Awake and Calm Pain Level: 0 nausea: No Vomiting: No Complications Anesthesia Complication: No 01/24/25 1004 Date Isacc Cavanaugh MD Cosigner Signature: Date CC: Signed [facility] Discharge Instructionon 12-27 Discharge Instruction [facility] Medical Records Department [address] [place] [address] Instructions for Home/Discharge Instructions 01/21/25 1417 MR#: [id number] Acct: [id number] Name: MARLO ADAMSON Rep #: [id number] : 1960 64 From: Maria Ines Mckoy MD PCP: Dr. Marlo Pollard DO Status:REG [facility] Discharge Instructions Diet Discharge Diet: Light diet [...] weeks call the office for follow-up appointment [phone] Test Results: Test results from this visit will be discussed in further detail at your follow-up appointment, if applicable. Discharge Plan Admission Attending Provider: Maria Ines Mckoy Primary Care Provider: Marlo Pollard Instructions Print Language: Singaporean Discharge Orders/Prescriptions Prescriptions: Continued metoprolol tartrate 25 [...] % cream with perineal applicator 1 applic MA QD-BID PRN (Reason: hemorrhoids) Qty: 30 0RF [...] MD CC: Dr. Marlo Pollard, DO Signed [facility] MR/POSTOP.ANEon 01-21-2025 MR/POSTOP.ANE [facility] Medical Records Department [address] [place] [address] Anesthesia Postop Eval I 01/21/25 1429 MR#: [id number] Acct: [id number] Name: MARLO ADAMSON Rodrigo Rep #: [id number] : 1960 64 From: Rosy Daley CRNA PCP: Dr. Marlo Pollard, DO Status:REG [facility] [place] Race: C Location: [place] [address] Anesthesia: Postop Eval I Current Vital Signs [...] Daley CRNA Cosigner Signature: Date CC: Signed [facility] Operative Reporton Operative Report [facility] Medical Records Department [address] [place] [address] Operative Report 01/21/25 1412 MR#: [id number] Acct: [id number] Name: MARLO ADAMSON Rodrigo Rep #: [id number] : 1960 64 From: Maria Ines Mckoy MD PCP: Dr. Marlo Pollard, DO Status:DEP [facility] Location: [facility] Operative Report (Standard) Operative Information Date of Procedure: 01/21/25 Pre-Operative Diagnosis: Anal fistula, hemorrhoids with bleeding Post-Operative Diagnosis: Internal/external hemorrhoids with bleeding, left gluteal subcutaneous sinus tract Surgery/Procedure Performed: Hemorrhoidectomy x 2, excision of left gluteal subcutaneous sinus tract corporate risk analyst: Yes Government Sales Manager: Sam Amin Tasks completed by customer care assistant: Opening closing and Retracting Type of [...] DO; Dr. Maria Ines Mckoy MD Signed [facility] MR/PAT.ANEon 01-07-2025 MR/PAT.[facility] Medical Records Department [address] [place] [address] PAT - Anesthesia 01/07/25 1149 MR#: [id number] Acct: [id number] Name: MARLO ADAMSON Rep #: [id number] : 1960 64 From: Greg Cortes MD PCP: Dr. 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 - endless steamer tender Hx Hospitalization Yes: 4-25 infection 01/07/25 09:36 [...] take am of surgery PONV PONV - endless steamer tender: PONV - endless steamer tender Female No 01/07/25 09:36 HX of Motion Sickness No 01/07/25 09:36 HX of N/V After Surgery No 01/07/25 09:36 Non-Smoker No 01/07/25 09:36 Duration of Surgery greater No 01/07/25 09:36 than 60 minutes Number of Risk Factors PONV Score Height Weight Height Weight: Anesthesia: Height Weight Height 5 ft 10 in 12/22/24 06:33 Respiratory Assessment Respiratory Assessment - endless steamer tender: Respiratory Tract Infection Hx - endless steamer tender Hx Respiratory Tract Infection No 01/07/25 09:36 STOP Sleep Apnea STOP Sleep Apnea - endless steamer tender: STOP Sleep Apnea - endless steamer tender Hx Hypertension Yes 01/07/25 09:36 Hx Sleep [...] Tobacco Use History Tobacco Use History - endless steamer tender: Tobacco Use History - endless steamer tender Tobacco Use Smoking Status Current every day smoker 01/07/25 09:36 Hx Tobacco Use Yes 01/07/25 09:36 Years Smoking 40 01/07/25 09:36 Packs Smoked per Day 1 01/07/25 09:36 Smoking Cessation Date was within the last 15 years Hx Smoking Cessation Date Hx Smoking Cessation No 01/07/25 09:36 Counseling Hematologic Medial History Hematologic Hx - endless steamer tender: Hematologic Medical Hx - card sorter Hx of Blood Transfusion No 01/07/25 09:36 [...] confused, unrespo /Reproduction History /Reproductive History - endless steamer tender: /Reproductive Hx- endless steamer tender Hx Now No 01/07/25 09:36 Gestational Age (in weeks): EDC: Hx Hx Para Hx Section SAB No 01/07/25 09:36 [facility] Medical History (Updated 01/07/25 @ 10:25 by [...] PO DAILY (more content not included)... [facility] Colonoscopy Reporton 025 Colonoscopy Report [facility] Medical Records Department [address] [place] [address] Colonoscopy Report MR#: [id number] Acct: [id number] Name: MARLO ADAMSON Rep #: [id number] : 1960 64 From: Maria Ines Mckoy MD PCP: Dr. Marlo Pollard, DO Status:REG [facility] Patient Name: Marlo Adamson Procedure Date: 12/22/2024 [...] pathology results. Procedure Code(s): --- Professional --- 63858, PT, Colonoscopy, flexible; with removal of tumor(s), polyp(s), or other lesion(s) by snare technique Diagnosis Code(s): --- Professional --- Z12.11, Encounter for screening for malignant neoplasm of colon K64.2, Third degree hemorrhoids D12.2, Benign neoplasm of ascending colon K57.30, Diverticulosis of large intestine without perforation or abscess without bleeding CPT copyright 2021 [employer]. All rights reserved. The codes documented in this report are preliminary and upon house wirer review may be revised to meet current compliance requirements. MD Maria Ines Patiño MD 12/22/2024 8:44:55 AM This report has been signed electronically. Number of Addenda: 0 Note Initiated On: 12/22/2024 8:03 AM 12/22/24843 Date Maria Ines Mckoy MD Cosigner Signature: Date (if indicated) CC: Dr. Marlo Pollard DO; Dr. Maria Ines Mckoy MD Date Dictated: 12/22/24802 Date Transcribed: Wedger Machine: TR Signed [facility] MR/POSTOP.[facility] 12-22-2024 MR/POSTOP.[facility] Medical Records Department [address] [place] [address] Anesthesia Postop Eval I 12/22/2442 MR#: [id number] Acct: [id number] Name: MARLO ADAMSON Rep #: [id number] : 1960 64 From: Joseph Hu PCP: Dr. Marlo Pollard DO Status:REG [facility] Y Race: C Location: [place] [address] Anesthesia: Postop Eval I Current Vital Signs [...] Joseph Larkinignrenzo Signature: Date CC: Signed [facility] MR/[id number] 12-22-2024 [facility] Medical Records Department [address] [place] [address] Anesthesia Postop Eval II 12/22/24 1001 MR#: [id number] Acct: [id number] Name: MARLO ADAMSON Rodrigo Rep #: [id number] : 1960 64 From: Yuly Champagne PCP: Dr. Marlo Pollard, DO Status:[facility] Y Race: C Location: [place] Anesthesia Postop [...] Goldmantylerrenzo Manuela Signature: Date CC: Signed [facility] Surgery Specimen Level Vincenzo 12-22-2024 Surgery Specimen Level IV Patient Age/Sex Location Account Attending Physician MARLO ADAMSON 64/M EN [id number] Dr. Maria Ines Mckoy MD Specimen: [id number] Received: 12/22/24 Status: MARIKA Reilly Num: [id number] Spec Type: COLON BX Subm Dr: Dr. [...] it is bisected. Submitted entirely in A1. [facility] 12-22-2024 CPT:07687 Patient Age/Sex Location Account Attending Physician MARLO ADAMSON/M EN [id number] Dr. Maria Ines Mckoy MD Signed (signature on file) Dr. Jazmine Weber MD 12/27/24 1205 [facility] Comment on above: Performed By: #### M 300.4600, M300.4500 #### [facility] [address] [place], [place], [address] /Chio 12-21-2024 MR/YOLANDA.ALIVIA [facility] Medical Records Department [address] [place] [address] PAT - Anesthesia 12/21/24 1016 MR#: [id number] Acct: [id number] Name: MARLO ADAMSON Rodrigo Rep #: [id number] : 1960 64 From: Isacc Cavanaugh MD PCP: Dr. 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: Anesthesia History - endless steamer tender Hx Hospitalization Yes: 10/2024 FLU/DIALYSIS 12/21/24 09:34 [...] take am of surgery PONV PONV - endless steamer tender: PONV - endless steamer tender Female No 12/21/24 09:34 HX of Motion Sickness No 12/21/24 09:34 HX of N/V After Surgery No 12/21/24 09:34 Non-Smoker No 12/21/24 09:34 Duration of Surgery greater No 12/21/24 09:34 than 60 minutes Number of Risk Factors PONV Score Height Weight Height Weight: Anesthesia: Height Weight Height 5 ft 10 in 10/31/24 16:55 Respiratory Assessment Respiratory Assessment - endless steamer tender: Respiratory Tract Infection Hx - endless steamer tender Hx Respiratory Tract Infection No 12/21/24 09:34 STOP Sleep Apnea STOP Sleep Apnea - endless steamer tender: STOP Sleep Apnea - endless steamer tender Hx Hypertension Yes: FAIRLY CONTROLLED WITH 12/21/24 [...] Tobacco Use History Tobacco Use History - endless steamer tender: Tobacco Use History - endless steamer tender Tobacco Use Smoking Status Current every day smoker 12/21/24 09:34 Hx Tobacco Use Yes 12/21/24 09:34 Years Smoking Packs Smoked per Day Smoking Cessation Date was within the last 15 years Hx Smoking Cessation Date 12/21/24 09:34 Hx Smoking Cessation Counseling Hematologic Medial History Hematologic Hx - endless steamer tender: Hematologic Medical Hx - card sorter Hx of Blood Transfusion No 12/21/24 09:34 [...] confused, unrespo /Reproduction History /Reproductive History - endless steamer tender: /Reproductive Hx- endless steamer tender Hx Now No 12/21/24 09:34 Gestational Age (in weeks): EDC: Hx Hx Para Hx Section SAB No 12/21/24 09:34 [facility] Medical History (Updated 12/21/24 @ 09:47 by [...] H is (more content not included)... [facility] Absolute lymphocyte countOrd ered By: Himanshu Almaguer on 11-02-2024 Lymphocytes Auto (Unsp spec) [#/Vol] 0.96 10*3/uL 0.83-4.51 [facility] Absolute neutrophil countOrd ered By: Himanshu Almaguer on 11-02-2024 Neutrophils (Bld) [#/Vol] 5.6 10*3/uL 2.0-7.7 [facility] Anion gap in Serum or Plasma Ordered By: Himanshu Almaguer on 11-02-2024 Anion gap [Moles/Vol] 14 mmol/L 5-15 [facility] Automated lymphocyte count a s percentage of total leukocytesOrdered By: Himanshu Calderongary on 11-02-2024 Lymphocytes/100 WBC Auto (Unsp spec) 12.6 % Low 19-41 [facility] BUN/creatinine ratioOrdered By: Himanshuadriane Almaguer on 11-02-2024 Urea nitrogen/Creatinine [Mass ratio] 7.0 mg/mg Low 10-20 [facility] Basic Metabolic Profile (BMP )on 11-02-2024 BUN/CRE 7.0 RATIO Low 10-20 [facility] Comment on above: Performed By: #### M 300.4600, M300.4500 #### [facility] [address] [place], [address] Calcium [Mass/Vol] 8.9 mg/dL Normal 7.6-11.0 [facility] Comment on above: Performed By: #### M 300.4600, M300.4500 #### [facility] [address] [place], [address] Chloride [Moles/Vol] 98 mmol/L Normal 98-108 [facility] Comment on above: Performed By: #### M 300.4600, M300.4500 #### [facility] [address] [place], [address] CO2 [Moles/Vol] 20.8 mmol/L Low 21.0-32.0 [facility] Comment on above: Performed By: #### M 300.4600, M300.4500 #### [facility] [address] [place], [address] Creatinine [Mass/Vol] 5.94 mg/dL High 0.70-1.20 [facility] Comment on above: Performed By: #### M 300.4600, M300.4500 #### [facility] [address] [place], [address] ECRCL 12.55 ml/min Low 50-250 [facility] Comment on above: Performed By: #### M 300.4600, M300.4500 #### [facility] [address] [place], [address] GAP 14 Normal 5-15 [facility] Comment on above: Performed By: #### M 300.4600, M300.4500 #### [facility] [address] [place], [address] GFR/1.73 sq M.predicted among non-blacks MDRD (S/P/Bld) [Vol rate/Area] 10 mL/min/{1.73_m2} Low >60 [facility] Comment on above: Result Comment: mL/m in/1.73m2 CKD-EPI Creatinine Equation (2020) Performed By: #### M 300.4600, M300.4500 #### [facility] [address] [place], [address] Glucose [Mass/Vol] 88 mg/dL Normal 70-99 [facility] Comment on above: Performed By: #### M 300.4600, M300.4500 #### [facility] [address] [place], [address] Potassium [Moles/Vol] 3.8 mmol/L Normal 3.3-5.1 [facility] Comment on above: Performed By: #### M 300.4600, M300.4500 #### [facility] [address] [place], [address] Sodium [Moles/Vol] 134 mmol/L Normal 133-145 [facility] Comment on above: Performed By: #### M 300.4600, M300.4500 #### [facility] [address] [place], [address] Urea nitrogen [Mass/Vol] 41 mg/dL High 4-19 [facility] Comment on above: Performed By: #### M 300.4600, M300.4500 #### [facility] [address] [place], [address] Basophil percentageOrdered B y: Himanshu Almaguer on 11-02-2024 Basophils/100 WBC (Bld) 0.4 % 0-1 [facility] CBC W/Diff, Automatedon Absolute Lymph 0.96 X10 3/uL Normal 0.83-4.51 [facility] Comment on above: Performed By: #### M 300.4600, M300.4500 #### [facility] [address] [place], [address] Absolute Neut 5.6 X10 3/uL Normal 2.0-7.7 [facility] Comment on above: Performed By: #### M 300.4600, M300.4500 #### [facility] [address] [place], [address] Basophils/100 WBC (Bld) 0.4 % Normal 0-1 [facility] Comment on above: Performed By: #### M 300.4600, M300.4500 #### [facility] [address] [place], [address] Eosinophils/100 WBC (Bld) 1.7 % Normal 0-5 [facility] Comment on above: Performed By: #### M 300.4600, M300.4500 #### [facility] [address] [place], [address] Erythrocyte distribution width (RBC) [Ratio] 13.6 % Normal 11.6-14.6 [facility] Comment on above: Performed By: #### M 300.4600, M300.4500 #### [facility] [address] [place], [address] Hematocrit (Bld) [Volume fraction] 36.8 % Low 40-54 [facility] Comment on above: Performed By: #### M 300.4600, M300.4500 #### [facility] [address] [place], [address] Hemoglobin (Bld) [Mass/Vol] 12.4 g/dL Low 13.0-16.5 [facility] Comment on above: Performed By: #### M 300.4600, M300.4500 #### [facility] [address] [place], [address] IG% 2.100 High 0.0-0.9 [facility] Comment on above: Result Comment: IG% - Immature Granulocytes (promyelocytes, myelocytes and metamyelocytes) > 1% indicates that a LEFT SHIFT is Present. Performed By: #### M 300.4600, M300.4500 #### [facility] [address] [place], [address] Lymphocytes/100 WBC (Bld) 12.6 % Low 19-41 [facility] Comment on above: Performed By: #### M 300.4600, M300.4500 #### [facility] [address] [place], [address] MCH (RBC) [Entitic mass] 31.1 pg Normal 27.0-32.0 [facility] Comment on above: Performed By: #### M 300.4600, M300.4500 #### [facility] [address] [place], [address] MCHC (RBC) [Mass/Vol] 33.7 g/dL Normal 32-36 [facility] Comment on above: Performed By: #### M 300.4600, M300.4500 #### [facility] [address] [place], [address] MCV (RBC) [Entitic vol] 92.2 fL Normal 80-94 [facility] Comment on above: Performed By: #### M 300.4600, M300.4500 #### [facility] [address] [place], [address] Monocytes/100 WBC (Bld) 9.8 % Normal 0-10 [facility] Comment on above: Performed By: #### M 300.4600, M300.4500 #### [facility] [address] [place], [address] Neutrophils/100 WBC (Bld) 73.4 % High 47-70 [facility] Comment on above: Performed By: #### M 300.4600, M300.4500 #### [facility] [address] [place], [address] Nucleated RBC (Bld) [#/Vol] 0 10*3/uL Normal 0-5 [facility] Comment on above: Performed By: #### M 300.4600, M300.4500 #### [facility] [address] [place], [address] Platelet mean volume (Bld) [Entitic vol] 9.4 fL Normal 6.2-12.0 [facility] Comment on above: Performed By: #### M 300.4600, M300.4500 #### [facility] [address] [place], [address] Platelets (Bld) [#/Vol] 218 10*3/uL Normal 150-450 [facility] Comment on above: Performed By: #### M 300.4600, M300.4500 #### [facility] [address] [place], [address] RBC (Bld) [#/Vol] 3.99 10*6/uL Low 4.6-6.2 [facility] Comment on above: Performed By: #### M 300.4600, M300.4500 #### [facility] [address] [place], [address] RDW SD 46.2 fl High 35.1-43.9 [facility] Comment on above: Performed By: #### M 300.4600, M300.4500 #### [facility] [address] [place], [address] WBC (Bld) [#/Vol] 7.6 10*3/uL Normal 4.4-11.0 [facility] Comment on above: Performed By: #### M 300.4600, M300.4500 #### [facility] [address] [place], [address] Carbon dioxide, total [Moles /volume] in Central venous bloodOrdered By: Himanshu Almaguer on 11-02-2024 CO2 [Moles/Vol] 20.8 mmol/L Low 21.0-32.0 [facility] Chloride assayOrdered By: Renzo Almaguer on 11-02-2024 Chloride [Moles/Vol] 98 mmol/L 98-108 [facility] Eosinophil percentageOrdered By: Himanshu Almaguer on 11-02-2024 Eosinophils/100 WBC (Bld) 1.7 % 0-5 [facility] Erythrocyte distribution wid th (RBC) [Ratio]Ordered By: Himanshu Almaguer on 11-02-2024 Erythrocyte distribution width (RBC) [Entitic vol] 46.2 fL High 35.1-43.9 [facility] Erythrocyte distribution wid th ratioOrdered By: Himanshu Almaguer on 11-02-2024 Erythrocyte distribution width (RBC) [Ratio] 13.6 % 11.6-14.6 [facility] Erythrocyte distribution wid th standard deviationOrdered By: Himanshu Almaguer on 11-02-2024 Erythrocyte distribution width (RBC) [Ratio] 46.2 fl High 35.1-43.9 [facility] Estimation of creatinine nicolas aranceOrdered By: Himanshu Almaguer on 11-02-2024 Estimated Creatinine Clearance Calc 12.55 ml/min Low 50-250 [facility] GFR/1.73 sq M.predicted joann g non-blacks MDRD (S/P/Bld) [Vol rate/Area]Ordered By: Himanshu Almaguer on 11-02-2024 Estimated GFR (MDRD) Non-Af Amer 10 Low >60 [facility] Comment on above: mL/min/1.73m2 CKD-EP I Creatinine Equation (2020) Glomerular filtration rate ( GFR) estimation/1.73 sq m using serum, plasma, or whole bOrdered By: Himanshu Almaguer on 11-02-2024 GFR/1.73 sq M.predicted among non-blacks MDRD (S/P/Bld) [Vol rate/Area] 10 mL/min/{1.73_m2} Low >60 [facility] Comment on above: mL/min/1.73m2 CKD-EP I Creatinine Equation (2020) Hematocrit Auto (Bld) [Volum e fraction]Ordered By: Himanshu Almaguer on 11-02-2024 Hematocrit (Bld) [Volume fraction] 36.8 % Low 40-54 [facility] Hemoglobin measurementOrdere d By: Himanshu Almaguer on 11-02-2024 Hemoglobin (Bld) [Mass/Vol] 12.4 g/dL Low 13.0-16.5 [facility] Immature granulocytes/100 WB C Auto (Bld)Ordered By: Himanshu Almaguer on 11-02-2024 Immature granulocytes/100 WBC (Bld) 2.100 % High 0.0-0.9 [facility] Comment on above: IG% - Immature Granu locytes (promyelocytes, myelocytes and metamyelocytes) > 1% indicates that a LEFT SHIFT is Present. Lymphocytes Auto (Unsp spec) [#/Vol]Ordered By: Himanshu Almaguer on 11-02-2024 Lymphocytes (Bld) [#/Vol] 0.96 10*3/uL 0.83-4.51 [facility] Lymphocytes/100 WBC Auto (Un sp spec)Ordered By: Himanshu Almaguer on 11-02-2024 Lymphocytes/100 WBC (Bld) 12.6 % Low 19-41 [facility] MCV (mean corpuscular volume ) determinationOrdered By: Himanshu Almaguer on 11-02-2024 MCV (RBC) [Entitic vol] 92.2 fL 80-94 [facility] Mean corpuscular hemoglobin (MCH) determinationOrdered By: Himanshu Almaguer on 11-02-2024 MCH (RBC) [Entitic mass] 31.1 pg 27.0-32.0 [facility] Mean corpuscular hemoglobin concentration (MCHC) determinationOrdered By: Himanshu Almaguer on 11-02-2024 MCHC (RBC) [Mass/Vol] 33.7 g/dL 32-36 [facility] Mean platelet volume determi nationOrdered By: Himanshu Almaguer on 11-02-2024 Platelet mean volume (Bld) [Entitic vol] 9.4 fL 6.2-12.0 [facility] Monocyte percentageOrdered B y: Himanshu Almaguer on 11-02-2024 Monocytes/100 WBC (Bld) 9.8 % 0-10 [facility] Neutrophil percentageOrdered By: Himanshu Almaguer on 11-02-2024 Neutrophils/100 WBC (Bld) 73.4 % High 47-70 [facility] Nucleated red blood cell per centageOrdered By: Himanshu Almauger on 11-02-2024 Nucleated RBC/100 WBC (Bld) [Ratio] 0 % 0-5 [facility] Platelet countOrdered By: Renzo Almaguer on 11-02-2024 Platelets (Bld) [#/Vol] 218 10*3/uL 150-450 [facility] Potassium (Unsp spec) [Mass/ Vol]Ordered By: Himanshu Almaguer on 11-02-2024 Potassium [Moles/Vol] 3.8 mmol/L 3.3-5.1 [facility] Potassium measurement (mass/ volume)Ordered By: Himanshu Almaguer on 11-02-2024 Potassium (Unsp spec) [Mass/Vol] 3.8 mmol/L 3.3-5.1 [facility] RBC Auto (Bld) [#/Vol]Ordere d By: Himanshu Almaguer on 11-02-2024 RBC (Bld) [#/Vol] 3.99 10*6/uL Low 4.6-6.2 [facility] Respiratory Cultureon 2024 RESPC List Antibiotics [place] Hours? zosyn, doxycycline Mixed normal respiratory jose enrique. No Streptococcus pneumoniae, beta-hemolytic Streptococcus or Staphylococcus aureus isolated. Normal [facility] Comment on above: Performed By: #### M 8200.1000 #### [facility] [address] [place], [address] Serum creatinine measurement (mass/volume)Ordered By: Himanshu Almaguer on 11-02-2024 Creatinine [Mass/Vol] 5.94 mg/dL High 0.70-1.20 [facility] Serum glucose measurement (m ass/volume)Ordered By: Himanshu Almaguer on 11-02-2024 Glucose [Mass/Vol] 88 mg/dL 70-99 [facility] Serum or plasma calcium cuong urement (mass/volume)Ordered By: Himanshu Almaguer on 11-02-2024 Calcium [Mass/Vol] 8.9 mg/dL 7.6-11.0 [facility] Serum or plasma urea nitroge n measurement (mass/volume)Ordered By: Himanshu Almaguer on 11-02-2024 Urea nitrogen [Mass/Vol] 41 mg/dL High 4-19 [facility] Sodium levelOrdered By: Himanshu Almaguer on 11-02-2024 Sodium [Moles/Vol] 134 mmol/L 133-145 [facility] White blood cell (WBC) count Ordered By: Himanshu Almaguer on 11-02-2024 WBC (Bld) [#/Vol] 7.6 10*3/uL 4.4-11.0 [facility] Basic Metabolic Profile (BMP )on 11-01-2024 BUN/CRE 8.2 RATIO Low 10-20 [facility] Comment on above: Performed By: #### L 100.0100, L500.2500 #### [facility] [address] [place], [address] Calcium [Mass/Vol] 8.9 mg/dL Normal 7.6-11.0 [facility] Comment on above: Performed By: #### L 100.0100, L500.2500 #### [facility] [address] [place], [address] Chloride [Moles/Vol] 92 mmol/L Low 98-108 [facility] Comment on above: Performed By: #### L 100.0100, L500.2500 #### [facility] [address] [place], [address] CO2 [Moles/Vol] 21.9 mmol/L Normal 21.0-32.0 [facility] Comment on above: Performed By: #### L 100.0100, L500.2500 #### [facility] [address] [place], [address] Creatinine [Mass/Vol] 7.59 mg/dL Invalid Interpretation Code 0.70-1.20 [facility] Comment on above: Result Comment: Crit ical Result(s) Called at:0559 by: DINORAH JOHNSTON TO ALEN WARREN??Results read back by same. Performed By: #### L 100.0100, L500.2500 #### [facility] [address] [place], [address] ECRCL 9.82 ml/min Invalid Interpretation Code 50-250 [facility] Comment on above: Performed By: #### L 100.0100, L500.2500 #### [facility] [address] [place], [address] GAP 18 High 5-15 [facility] Comment on above: Performed By: #### L 100.0100, L500.2500 #### [facility] [address] [place], [address] GFR/1.73 sq M.predicted among non-blacks MDRD (S/P/Bld) [Vol rate/Area] 7 mL/min/{1.73_m2} Low >60 [facility] Comment on above: Result Comment: mL/m in/1.73m2 CKD-EPI Creatinine Equation (2020) Performed By: #### L 100.0100, L500.2500 #### [facility] [address] [place], [address] Glucose [Mass/Vol] 101 mg/dL High 70-99 [facility] Comment on above: Performed By: #### L 100.0100, L500.2500 #### [facility] [address] [place], [address] Potassium [Moles/Vol] 3.4 mmol/L Normal 3.3-5.1 [facility] Comment on above: Performed By: #### L 100.0100, L500.2500 #### [facility] [address] [place], [address] Sodium [Moles/Vol] 132 mmol/L Low 133-145 [facility] Comment on above: Performed By: #### L 100.0100, L500.2500 #### [facility] [address] [place], [address] Urea nitrogen [Mass/Vol] 63 mg/dL High 4-19 [facility] Comment on above: Performed By: #### L 100.0100, L500.2500 #### [facility] [address] [place], [address] C. difficile DNA ALICE+probe Q l (Unsp spec)Ordered By: Chirag Lucero on 11-01-2024 Clostridioides difficile (PCR) [facility] CBC W/Diff, Automatedon 04-0 Absolute Lymph 1.12 X10 3/uL Normal 0.83-4.51 [facility] Comment on above: Performed By: #### L 100.0100, L500.2500 #### [facility] [address] [place], [address] Absolute Neut 7.8 X10 3/uL High 2.0-7.7 [facility] Comment on above: Performed By: #### L 100.0100, L500.2500 #### [facility] [address] [place], [address] Basophils/100 WBC (Bld) 0.3 % Normal 0-1 [facility] Comment on above: Performed By: #### L 100.0100, L500.2500 #### [facility] [address] [place], [address] Eosinophils/100 WBC (Bld) 1.1 % Normal 0-5 [facility] Comment on above: Performed By: #### L 100.0100, L500.2500 #### [facility] [address] [place], [address] Erythrocyte distribution width (RBC) [Ratio] 13.5 % Normal 11.6-14.6 [facility] Comment on above: Performed By: #### L 100.0100, L500.2500 #### [facility] [address] [place], [address] Hematocrit (Bld) [Volume fraction] 37.4 % Low 40-54 [facility] Comment on above: Performed By: #### L 100.0100, L500.2500 #### [facility] [address] [place], [address] Hemoglobin (Bld) [Mass/Vol] 13.1 g/dL Normal 13.0-16.5 [facility] Comment on above: Performed By: #### L 100.0100, L500.2500 #### [facility] [address] [place], [address] IG% 1.000 High 0.0-0.9 [facility] Comment on above: Result Comment: IG% - Immature Granulocytes (promyelocytes, myelocytes and metamyelocytes) > 1% indicates that a LEFT SHIFT is Present. Performed By: #### L 100.0100, L500.2500 #### [facility] [address] [place], [address] Lymphocytes/100 WBC (Bld) 11.3 % Low 19-41 [facility] Comment on above: Performed By: #### L 100.0100, L500.2500 #### [facility] [address] [place], [address] MCH (RBC) [Entitic mass] 31.6 pg Normal 27.0-32.0 [facility] Comment on above: Performed By: #### L 100.0100, L500.2500 #### [facility] [address] [place], [address] MCHC (RBC) [Mass/Vol] 35.0 g/dL Normal 32-36 [facility] Comment on above: Performed By: #### L 100.0100, L500.2500 #### [facility] [address] [place], [address] MCV (RBC) [Entitic vol] 90.3 fL Normal 80-94 [facility] Comment on above: Performed By: #### L 100.0100, L500.2500 #### [facility] [address] [place], [address] Monocytes/100 WBC (Bld) 7.5 % Normal 0-10 [facility] Comment on above: Performed By: #### L 100.0100, L500.2500 #### [facility] [address] [place], [address] Neutrophils/100 WBC (Bld) 78.8 % High 47-70 [facility] Comment on above: Performed By: #### L 100.0100, L500.2500 #### [facility] [address] [place], [address] Nucleated RBC (Bld) [#/Vol] 0 10*3/uL Normal 0-5 [facility] Comment on above: Performed By: #### L 100.0100, L500.2500 #### [facility] [address] [place], [address] Platelet mean volume (Bld) [Entitic vol] 9.6 fL Normal 6.2-12.0 [facility] Comment on above: Performed By: #### L 100.0100, L500.2500 #### [facility] [address] [place], [address] Platelets (Bld) [#/Vol] 188 10*3/uL Normal 150-450 [facility] Comment on above: Performed By: #### L 100.0100, L500.2500 #### [facility] [address] [place], [address] RBC (Bld) [#/Vol] 4.14 10*6/uL Low 4.6-6.2 [facility] Comment on above: Performed By: #### L 100.0100, L500.2500 #### [facility] [address] [place], [address] RDW SD 45.1 fl High 35.1-43.9 [facility] Comment on above: Performed By: #### L 100.0100, L500.2500 #### [facility] [address] [place], [address] WBC (Bld) [#/Vol] 9.9 10*3/uL Normal 4.4-11.0 [facility] Comment on above: Performed By: #### L 100.0100, L500.2500 #### [facility] [address] [place], [address] CDIFF (PCR)on 11-01-2024 CDIFF Is the patient recei ving laxatives? N New/unexplained onset of 3 or more stools in past 24 hrs? Y Pending 027 027 NAP1-B1 Presumptive Negative *for epidemiolologic???use C. Diff PCR Negative- No toxigenic C. Diff Detected Normal [facility] Comment on above: Performed By: #### M 100.6781 #### [facility] [address] [place], [address] Clostridium difficile detect ion by polymerase chain reactionOrdered By: Chirag Lucero on 11-01-2024 C. difficile DNA ALICE+probe Ql (Unsp spec) [facility] Consultation - Nephrologyon 11-01-2024 Consultation - Nephrology [facility] Medical Records Department [address] [place] [address] Consultation - Nephrology 11/01/24 1205 MR#: [id number] Acct: [id number] Name: MARLO ADAMSON Rep #: [id number] : 1960 64 From: Maranda GARCIAC PCP: Dr. Marlo Pollard, DO Status:ADM IN Location: [place] [id number] Assessment Plan Assessment/Plan (1) ESRD (end stage [...] was poor and he has lost weight. [facility] Medical History (Updated 11/01/24 @ 12:07 by [...] hydrocortisone 2.5 % topical cream 1 applic MA QD-BID PRN hemorrhoi ds 10/13/24 Unknown Rx [...] HPI Physica (more content not included)... Normal [facility] ENTERIC PATHOGEN PANEL STOOL on 11-01-2024 EP [...] VIBRIO Not Detected Yersinia Not Detected Normal [facility] Comment on above: Performed By: #### M 100.637, M100.7900, M100.0605 #### [facility] [address] [place], [address] Lactoferrin IA Ql (Stl)Order ed By: Chirag Lucero on 11-01-2024 Stool Lactoferrin [facility] Lower GI hemoglobin IA Ql (S tl)Ordered By: Chirag Lucero on 11-01-2024 Stool Occult Blood (PAULIE) [facility] Stool Lactoferrin/WBCon 04-0 WBCST Normal Reference Ran ge = Negative Fecal WBC Lactoferrin A Positive: Fecal WBC Lactoferrin present A Normal [facility] Comment on above: Performed By: #### M 100.637, M100.7900, M100.0605 #### [facility] [address] [place], [address] Stool Occult Blood iFOBon STOB Negative Normal [facility] Comment on above: Performed By: #### M 100.637, M100.7900, M100.0605 #### [facility] [address] [place], [address] Stool enteric pathogen panel by probe and target amplification methodOrdered By: Chirag Lucero on 11-01-2024 Enteric Bacteriology [facility] Stool gastrointestinal hemog lobin detection by immunologic methodOrdered By: Chirag Lucero on 11-01-2024 Lower GI hemoglobin IA Ql (Stl) [facility] Stool lactoferrin detection by immunoassayOrdered By: Chirag Lucero on 11-01-2024 Lactoferrin IA Ql (Stl) [facility] Absolute neutrophil countOrd ered By: Jimy Jarquin on 10-31-2024 Neutrophils (Bld) [#/Vol] 14.1 10*3/uL High 2.0-7.7 [facility] Anion gap in Serum or Plasma Ordered By: Jimy Jarquin on 10-31-2024 Anion gap [Moles/Vol] 18 mmol/L High 5-15 [facility] BUN/creatinine ratioOrdered By: Jimy Jarquin on 10-31-2024 Urea nitrogen/Creatinine [Mass ratio] 7.6 mg/mg Low 10-20 [facility] Basic Metabolic Profile (BMP )on 10-31-2024 BUN/CRE 7.6 RATIO Low 10-20 [facility] Comment on above: Performed By: #### M 300.4600, M300.4500 #### [facility] [address] [place], [address] Calcium [Mass/Vol] 9.1 mg/dL Normal 7.6-11.0 [facility] Comment on above: Performed By: #### M 300.4600, M300.4500 #### [facility] [address] [place], [address] Chloride [Moles/Vol] 89 mmol/L Low 98-108 [facility] Comment on above: Performed By: #### M 300.4600, M300.4500 #### [facility] [address] [place], [address] CO2 [Moles/Vol] 25.2 mmol/L Normal 21.0-32.0 [facility] Comment on above: Performed By: #### M 300.4600, M300.4500 #### [facility] [address] [place], [address] Creatinine [Mass/Vol] 6.33 mg/dL High 0.70-1.20 [facility] Comment on above: Performed By: #### M 300.4600, M300.4500 #### [facility] [address] [place], [address] ECRCL 11.97 ml/min Low 50-250 [facility] Comment on above: Performed By: #### M 300.4600, M300.4500 #### [facility] [address] [place], [address] GAP 18 High 5-15 [facility] Comment on above: Performed By: #### M 300.4600, M300.4500 #### [facility] [address] [place], [address] GFR/1.73 sq M.predicted among non-blacks MDRD (S/P/Bld) [Vol rate/Area] 9 mL/min/{1.73_m2} Low >60 [facility] Comment on above: Result Comment: mL/m in/1.73m2 CKD-EPI Creatinine Equation (2020) Performed By: #### M 300.4600, M300.4500 #### [facility] [address] [place], [address] Glucose [Mass/Vol] 132 mg/dL High 70-99 [facility] Comment on above: Performed By: #### M 300.4600, M300.4500 #### [facility] [address] [place], [address] Potassium [Moles/Vol] 3.3 mmol/L Normal 3.3-5.1 [facility] Comment on above: Performed By: #### M 300.4600, M300.4500 #### [facility] [address] [place], [address] Sodium [Moles/Vol] 132 mmol/L Low 133-145 [facility] Comment on above: Performed By: #### M 300.4600, M300.4500 #### [facility] [address] [place], [address] Urea nitrogen [Mass/Vol] 48 mg/dL High 4-19 [facility] Comment on above: Performed By: #### M 300.4600, M300.4500 #### [facility] [address] [place], [address] Basophil percentageOrdered B y: Jimy Jarquin on 10-31-2024 Basophils/100 WBC (Bld) 0.2 % 0-1 [facility] Bilirubin, totalOrdered By: Elidia Cunningham on 10-31-2024 Bilirubin [Mass/Vol] 0.83 mg/dL 0.00-1.30 [facility] CBC W/Diff, Automatedon Absolute Lymph 0.93 X10 3/uL Normal 0.83-4.51 [facility] Comment on above: Performed By: #### M 8200.1000 #### [facility] [address] [place], [address] Absolute Neut 11.7 X10 3/uL High 2.0-7.7 [facility] Comment on above: Performed By: #### M 8200.1000 #### [facility] [address] [place], [address] Basophils/100 WBC (Bld) 0.1 % Normal 0-1 [facility] Comment on above: Performed By: #### M 8200.1000 #### [facility] [address] [place], [address] Eosinophils/100 WBC (Bld) 0.1 % Normal 0-5 [facility] Comment on above: Performed By: #### M 8200.1000 #### [facility] [address] [place], [address] Erythrocyte distribution width (RBC) [Ratio] 13.4 % Normal 11.6-14.6 [facility] Comment on above: Performed By: #### M 8200.1000 #### [facility] [address] [place], [address] Hematocrit (Bld) [Volume fraction] 39.0 % Low 40-54 [facility] Comment on above: Performed By: #### M 8200.1000 #### [facility] [address] [place], [address] Hemoglobin (Bld) [Mass/Vol] 13.5 g/dL Normal 13.0-16.5 [facility] Comment on above: Performed By: #### M 8200.1000 #### [facility] [address] [place], [address] IG% 1.200 High 0.0-0.9 [facility] Comment on above: Result Comment: IG% - Immature Granulocytes (promyelocytes, myelocytes and metamyelocytes) > 1% indicates that a LEFT SHIFT is Present. Performed By: #### M 8200.1000 #### [facility] [address] [place], [address] Lymphocytes/100 WBC (Bld) 6.7 % Low 19-41 [facility] Comment on above: Performed By: #### M 8200.1000 #### [facility] [address] [place], [address] MCH (RBC) [Entitic mass] 31.1 pg Normal 27.0-32.0 [facility] Comment on above: Performed By: #### M 8200.1000 #### [facility] [address] [place], [address] MCHC (RBC) [Mass/Vol] 34.6 g/dL Normal 32-36 [facility] Comment on above: Performed By: #### M 8200.1000 #### [facility] [address] [place], [address] MCV (RBC) [Entitic vol] 89.9 fL Normal 80-94 [facility] Comment on above: Performed By: #### M 8200.1000 #### [facility] [address] [place], [address] Monocytes/100 WBC (Bld) 7.3 % Normal 0-10 [facility] Comment on above: Performed By: #### M 8200.1000 #### [facility] [address] [place], [address] Neutrophils/100 WBC (Bld) 84.6 % High 47-70 [facility] Comment on above: Performed By: #### M 8200.1000 #### [facility] [address] [place], [address] Nucleated RBC (Bld) [#/Vol] 0 10*3/uL Normal 0-5 [facility] Comment on above: Performed By: #### M 8200.1000 #### [facility] [address] [place], [address] Platelet mean volume (Bld) [Entitic vol] 9.6 fL Normal 6.2-12.0 [facility] Comment on above: Performed By: #### M 8200.1000 #### [facility] [address] [place], [address] Platelets (Bld) [#/Vol] 186 10*3/uL Normal 150-450 [facility] Comment on above: Performed By: #### M 8200.1000 #### [facility] [address] [place], [address] RBC (Bld) [#/Vol] 4.34 10*6/uL Low 4.6-6.2 [facility] Comment on above: Performed By: #### M 8200.1000 #### [facility] [address] [place], [address] RDW SD 44.4 fl High 35.1-43.9 [facility] Comment on above: Performed By: #### M 8200.1000 #### [facility] [address] [place], [address] WBC (Bld) [#/Vol] 13.8 10*3/uL High 4.4-11.0 [facility] Comment on above: Performed By: #### M 8200.1000 #### [facility] [address] [place], [address] Absolute Lymph 0.86 X10 3/uL Normal 0.83-4.51 [facility] Comment on above: Performed By: #### M 300.4600, M300.4500 #### [facility] [address] [place], [address] Absolute Neut 14.1 X10 3/uL High 2.0-7.7 [facility] Comment on above: Performed By: #### M 300.4600, M300.4500 #### [facility] [address] [place], [address] Basophils/100 WBC (Bld) 0.2 % Normal 0-1 [facility] Comment on above: Performed By: #### M 300.4600, M300.4500 #### [facility] [address] [place], [address] Eosinophils/100 WBC (Bld) 0.1 % Normal 0-5 [facility] Comment on above: Performed By: #### M 300.4600, M300.4500 #### [facility] [address] [place], [address] Erythrocyte distribution width (RBC) [Ratio] 13.5 % Normal 11.6-14.6 [facility] Comment on above: Performed By: #### M 300.4600, M300.4500 #### [facility] [address] [place], [address] Hematocrit (Bld) [Volume fraction] 40.9 % Normal 40-54 [facility] Comment on above: Performed By: #### M 300.4600, M300.4500 #### [facility] [address] [place], [address] Hemoglobin (Bld) [Mass/Vol] 14.4 g/dL Normal 13.0-16.5 [facility] Comment on above: Performed By: #### M 300.4600, M300.4500 #### [facility] [address] [place], [address] IG% 1.500 High 0.0-0.9 [facility] Comment on above: Result Comment: IG% - Immature Granulocytes (promyelocytes, myelocytes and metamyelocytes) > 1% indicates that a LEFT SHIFT is Present. Performed By: #### M 300.4600, M300.4500 #### [facility] [address] [place], [address] Lymphocytes/100 WBC (Bld) 5.3 % Low 19-41 [facility] Comment on above: Performed By: #### M 300.4600, M300.4500 #### [facility] [address] [place], [address] MCH (RBC) [Entitic mass] 31.5 pg Normal 27.0-32.0 [facility] Comment on above: Performed By: #### M 300.4600, M300.4500 #### [facility] [address] [place], [address] MCHC (RBC) [Mass/Vol] 35.2 g/dL Normal 32-36 [facility] Comment on above: Performed By: #### M 300.4600, M300.4500 #### [facility] [address] [place], [address] MCV (RBC) [Entitic vol] 89.5 fL Normal 80-94 [facility] Comment on above: Performed By: #### M 300.4600, M300.4500 #### [facility] [address] [place], [address] Monocytes/100 WBC (Bld) 7.1 % Normal 0-10 [facility] Comment on above: Performed By: #### M 300.4600, M300.4500 #### [facility] [address] [place], [address] Neutrophils/100 WBC (Bld) 85.8 % High 47-70 [facility] Comment on above: Performed By: #### M 300.4600, M300.4500 #### [facility] [address] [place], [address] Nucleated RBC (Bld) [#/Vol] 0 10*3/uL Normal 0-5 [facility] Comment on above: Performed By: #### M 300.4600, M300.4500 #### [facility] [address] [place], [address] Platelet mean volume (Bld) [Entitic vol] 9.7 fL Normal 6.2-12.0 [facility] Comment on above: Performed By: #### M 300.4600, M300.4500 #### [facility] [address] [place], [address] Platelets (Bld) [#/Vol] 197 10*3/uL Normal 150-450 [facility] Comment on above: Performed By: #### M 300.4600, M300.4500 #### [facility] [address] [place], [address] RBC (Bld) [#/Vol] 4.57 10*6/uL Low 4.6-6.2 [facility] Comment on above: Performed By: #### M 300.4600, M300.4500 #### [facility] [address] [place], [address] RDW SD 44.1 fl High 35.1-43.9 [facility] Comment on above: Performed By: #### M 300.4600, M300.4500 #### [facility] [address] [place], [address] WBC (Bld) [#/Vol] 16.4 10*3/uL High 4.4-11.0 [facility] Comment on above: Performed By: #### M 300.4600, M300.4500 #### [facility] [address] [place], [address] Carbon dioxide, total [Moles /volume] in Central venous bloodOrdered By: Jimy Jarquin on 10-31-2024 CO2 [Moles/Vol] 25.2 mmol/L 21.0-32.0 [facility] Chest PA and Lateralon 10-31 Chest PA and Lateral [facility] Imaging Services [address] [place] [address] Chest PA and Lateral MR#: [id number] Acct: [id number] Name: MARLO ADAMSON Rep #: [id number] : 1960 M 64 From: Beau Blackman i, DO PCP: Dr. Marlo Pollard DO Status: PRE ER Study: Chest PA and Lateral Date of Exam: 10/31/24 Exam# [id number] Ordering Dr: Jimy Jarquin MD PROCEDURE: PA [...] Jimy Jarquin MD; Dr. Marlo Pollard DO Wedger Machine: Signed Normal [facility] Chloride assayOrdered By: Odalis Jarquin on 10-31-2024 Chloride [Moles/Vol] 89 mmol/L Low 98-108 [facility] Comprehensive Metabolic Prof ilon 10-31-2024 Albumin [Mass/Vol] 3.2 g/dL Low 3.4-4.8 [facility] Comment on above: Performed By: #### M 8200.1000 #### [facility] [address] [place], [address] Albumin/Globulin [Mass ratio] 1.0 {ratio} Normal 0.9-2.4 [facility] Comment on above: Performed By: #### M 8200.1000 #### [facility] [address] [place], [address] ALK PHOS 67 U/L Normal 40-129 [facility] Comment on above: Performed By: #### M 8200.1000 #### [facility] [address] [place], [address] ALT [Catalytic activity/Vol] 22 U/L Normal <=46 [facility] Comment on above: Performed By: #### M 8200.1000 #### [facility] [address] [place], [address] AST [Catalytic activity/Vol] 24 U/L Normal <=37 [facility] Comment on above: Performed By: #### M 8200.1000 #### [facility] [address] [place], [address] Bilirubin [Mass/Vol] 0.83 mg/dL Normal 0.00-1.30 [facility] Comment on above: Performed By: #### M 8200.1000 #### [facility] [address] [place], [address] BUN/CRE 7.9 RATIO Low 10-20 [facility] Comment on above: Performed By: #### M 8200.1000 #### [facility] [address] [place], [address] Calcium [Mass/Vol] 9.0 mg/dL Normal 7.6-11.0 [facility] Comment on above: Performed By: #### M 8200.1000 #### [facility] [address] [place], [address] Chloride [Moles/Vol] 90 mmol/L Low 98-108 [facility] Comment on above: Performed By: #### M 8200.1000 #### [facility] [address] [place], [address] CO2 [Moles/Vol] 23.9 mmol/L Normal 21.0-32.0 [facility] Comment on above: Performed By: #### M 8200.1000 #### [facility] [address] [place], [address] Creatinine [Mass/Vol] 6.59 mg/dL High 0.70-1.20 [facility] Comment on above: Performed By: #### M 8200.1000 #### [facility] [address] [place], [address] ECRCL 11.26 ml/min Low 50-250 [facility] Comment on above: Performed By: #### M 8200.1000 #### [facility] [address] [place], [address] GAP 18 High 5-15 [facility] Comment on above: Performed By: #### M 8200.1000 #### [facility] [address] [place], [address] GFR/1.73 sq M.predicted among non-blacks MDRD (S/P/Bld) [Vol rate/Area] 9 mL/min/{1.73_m2} Low >60 [facility] Comment on above: Result Comment: mL/m in/1.73m2 CKD-EPI Creatinine Equation (2020) Performed By: #### M 8200.1000 #### [facility] [address] [place], [address] Globulin (S) [Mass/Vol] 3.3 g/dL Normal 2.2-4.2 [facility] Comment on above: Performed By: #### M 8200.1000 #### [facility] [address] [place], [address] Glucose [Mass/Vol] 113 mg/dL High 70-99 [facility] Comment on above: Performed By: #### M 8200.1000 #### [facility] [address] [place], [address] Potassium [Moles/Vol] 3.2 mmol/L Low 3.3-5.1 [facility] Comment on above: Performed By: #### M 8200.1000 #### [facility] [address] [place], [address] Sodium [Moles/Vol] 132 mmol/L Low 133-145 [facility] Comment on above: Performed By: #### M 8200.1000 #### [facility] [address] [place], [address] T PROT 6.5 g/dL Normal 5.9-8.4 [facility] Comment on above: Performed By: #### M 8200.1000 #### [facility] [address] [place], [address] Urea nitrogen [Mass/Vol] 52 mg/dL High 4-19 [facility] Comment on above: Performed By: #### M 8200.1000 #### [facility] [address] [place], [place], [address] Emergency Department Summary on 10-31-2024 Emergency Department Summary [facility] Medical Records Department [address] [place] [address] Emergency Department Summary 10/31/24 MR#: [id number] Acct: [id number] Name: MARLO ADAMSON Rep #: [id number] : 1960 64 From: Jimy Jarquin MD [...] for this and has no other complaints. [facility] Medical History Wears dentures Alcohol [...] hydrocortisone 2.5 % topical cream 1 applic MA QD-BID PRN hemorrhoi ds 10/13/24 Unknown Rx [...] Air Positi (more content not included)... Normal [facility] Eosinophil percentageOrdered By: Jimyjourdan Jarquin on 10-31-2024 Eosinophils/100 WBC (Bld) 0.1 % 0-5 [facility] Erythrocyte distribution wid th (RBC) [Ratio]Ordered By: Jimy Jarquin on 10-31-2024 Erythrocyte distribution width (RBC) [Entitic vol] 44.1 fL High 35.1-43.9 [facility] Erythrocyte distribution wid th ratioOrdered By: Jimy Jarquin on 10-31-2024 Erythrocyte distribution width (RBC) [Ratio] 13.5 % 11.6-14.6 [facility] Estimation of creatinine nicolas aranceOrdered By: Jimy Jarquin on 10-31-2024 Estimated Creatinine Clearance Calc 11.97 ml/min Low 50-250 [facility] GFR/1.73 sq M.predicted joann g non-blacks MDRD (S/P/Bld) [Vol rate/Area]Ordered By: Jimy Jarquin on 10-31-2024 Estimated GFR (MDRD) Non-Af Amer 9 Low >60 [facility] Comment on above: mL/min/1.73m2 CKD-EP I Creatinine Equation (2020) Gram Stainon 10-31-2024 GS List Antibiotics [place] 48 Hours? zosyn, doxycycline Acceptable Specimen? Yes (<25 Epithelial cells per/lpf) Gram Stain 1+ Gram positive cocci 1+ White Blood Cells 1+ Epithelial cells 1+ Gram positive rods Normal [facility] Comment on above: Performed By: #### M 300.4600, M300.4500 #### [facility] [address] [place], [place], [address] Gram stainOrdered By: Elidia Cunningham on 10-31-2024 Microscopic observation Gram stain Nom (Unsp spec) [facility] H AND P Exam - Hospitaliston 10-31-2024 H&P Exam - Hospitalist [facility] Medical Records Department [address] [place] [address] H P Exam - Hospitalist 10/31/24 0347 MR#: [id number] Acct: [id number] Name: MARLO ADAMSON Rodrigo Rep #: [id number] : 1960 64 From: Elidia Cunningham MD PCP: Dr. Marlo Pollard, DO Status:ADM IN Location: [facility] HPI - General General Date of Admission: 10/31/24 Date of Service: 10/31/24 Chief Complaint: Cough, congestion, dyspnea, recent outpatient abx. HPI Narrative The patient is a 64-year-old male with past medical history M w/ PMHx: PCKD w/ ESRD (T-F), CAD s/p PCI, HTN, HLD, GERD, Tobacco use, Hx VTE (DVT) who presents to the [facility] ED on 10/31/24 with congestion, fatigue, malaise, [...] the ED patient ministered IV Zosyn therapy. [facility] Medical History (Updated 10/31/24 @ 04:07 by [...] hydrocortisone 2.5 % topical cream 1 applic MA QD-BID PRN hemorrhoi ds 10/13/24 Unknown Rx [...] wounds. CARDIOVASCULAR (more content not included)... Normal [facility] Hematocrit Auto (Bld) [Volum e fraction]Ordered By: Jimy Jarquin on 10-31-2024 Hematocrit (Bld) [Volume fraction] 40.9 % 40-54 [facility] Hemoglobin measurementOrdere d By: Jimy Jarquin on 10-31-2024 Hemoglobin (Bld) [Mass/Vol] 14.4 g/dL 13.0-16.5 [facility] Immature granulocytes/100 WB C Auto (Bld)Ordered By: Jimy Jarquin on 10-31-2024 Immature granulocytes/100 WBC (Bld) 1.500 % High 0.0-0.9 [facility] Comment on above: IG% - Immature Granu locytes (promyelocytes, myelocytes and metamyelocytes) > 1% indicates that a LEFT SHIFT is Present. L. pneumophila Ag Ql (U)Orde red By: Elidia Cunningham on 10-31-2024 Legionella Antigen [facility] - Chemistry and C hemistry - challengeOrdered By: Elidia Cunningham on 10-31-2024 AST [Catalytic activity/Vol] 24 U/L <38 [facility] Legionella Antigen Urineon 0 10-31-2024 LEGU Legionella Antigen r esult interpretation: L pneumo Ag Ur Ql Negative Presumptive negative for Legionella pneumophila serogroup 1 antigen in urine, suggesting no recent or current infection. Legionella Ag, Urine Negative (See interpretation below) Normal [facility] Comment on above: Performed By: #### M 300.4600, M300.4500 #### [facility] [address] [place], [place], [id number] Lymphocytes Auto (Unsp spec) [#/Vol]Ordered By: Jimy Jarquin on 10-31-2024 Lymphocytes (Bld) [#/Vol] 0.86 10*3/uL 0.83-4.51 [facility] Lymphocytes/100 WBC Auto (Un sp spec)Ordered By: Jimy Jarquin on 10-31-2024 Lymphocytes/100 WBC (Bld) 5.3 % Low 19-41 [facility] M8200.1000on 10-31-2024 M8200.1000 Normal Reference Ran ge = Negative MRSA DNA Nose Ql ALICE+probe GeneXpert Instrument, PCR method MRSA DNA Nose Ql ALICE+probe RESULTS CALLED TO LESTER SOTO 10/31/24 0844 Yanna Ferrell. REPORT READ BACK BY . MRSA PCR A MRSA POSITIVE A Meth. resistant Staph. aureus mecA A mecA Resistance Marker Detected A Normal [facility] Comment on above: Performed By: #### M 8200.1000 #### [facility] [address] [place], [place], [id number] MCV (mean corpuscular volume ) determinationOrdered By: Jimy Jarquin on 10-31-2024 MCV (RBC) [Entitic vol] 89.5 fL 80-94 [facility] MRSA DNA ALICE+probe Ql (Nose) Ordered By: Elidia Cunningham on 10-31-2024 MRSA (PCR) Meth. resistant Stap h. aureus Abnormal [facility] Magnesiumon 10-31-2024 Magnesium [Mass/Vol] 1.8 mg/dL Normal 1.5-2.2 [facility] Comment on above: Order Comment: Comme nts: May add to ED labsComments: may add to ED labs Performed By: #### M 300.4600, M300.4500 #### [facility] [address] [place], [place], [id number] Magnesium (Unsp spec) [Mass/ Vol]Ordered By: Elidia Cunningham on 10-31-2024 Magnesium [Mass/Vol] 1.8 mg/dL 1.5-2.2 [facility] Magnesium measurement (mass/ volume)Ordered By: Elidia Cunningham on 10-31-2024 Magnesium (Unsp spec) [Mass/Vol] 1.8 mg/dL 1.5-2.2 [facility] Mean corpuscular hemoglobin (MCH) determinationOrdered By: Jimy Jarquin on 10-31-2024 MCH (RBC) [Entitic mass] 31.5 pg 27.0-32.0 [facility] Mean corpuscular hemoglobin concentration (MCHC) determinationOrdered By: Jimy Jarquin on 10-31-2024 MCHC (RBC) [Mass/Vol] 35.2 g/dL 32-36 [facility] Mean platelet volume determi nationOrdered By: Jimy Jarquin on 10-31-2024 Platelet mean volume (Bld) [Entitic vol] 9.7 fL 6.2-12.0 [facility] Microbial respiratory cultur eOrdered By: Elidia Cunningham on 10-31-2024 Microorganism identified Cx Nom (Unsp spec) or Staphylococcus aureus isolated. [facility] Microorganism identified Cx Nom (Unsp spec)Ordered By: Elidia Cunningham on 10-31-2024 Respiratory Culture or Staphylococcus au reus isolated. [facility] Monocyte percentageOrdered B y: Jimy Jarquin on 10-31-2024 Monocytes/100 WBC (Bld) 7.1 % 0-10 [facility] Nasal methicillin resistant Staphylococcus aureus (MRSA) DNA detection by PCROrdered By: Elidia Cunningham on 10-31-2024 MRSA DNA ALICE+probe Ql (Nose) Meth. resistant Staph. aureus Abnormal [facility] Neutrophil percentageOrdered By: Jimy Jarquin on 10-31-2024 Neutrophils/100 WBC (Bld) 85.8 % High 47-70 [facility] Nucleated red blood cell per centageOrdered By: Jimy Jarquin on 10-31-2024 Nucleated RBC/100 WBC (Bld) [Ratio] 0 % 0-5 [facility] Phosphoruson 10-31-2024 Phosphate [Mass/Vol] 3.3 mg/dL Normal 2.7-4.5 [facility] Comment on above: Order Comment: Comme nts: May add to ED labsComments: may add to ED labs Performed By: #### M 300.4600, M300.4500 #### [facility] [address] [place], [address] Platelet countOrdered By: Odalis Jarquin on 10-31-2024 Platelets (Bld) [#/Vol] 197 10*3/uL 150-450 [facility] Potassium (Unsp spec) [Mass/ Vol]Ordered By: Jimy Jarquin on 10-31-2024 Potassium [Moles/Vol] 3.3 mmol/L 3.3-5.1 [facility] RBC Auto (Bld) [#/Vol]Ordere d By: Jimy Jarquin on 10-31-2024 RBC (Bld) [#/Vol] 4.57 10*6/uL Low 4.6-6.2 [facility] RESPIRATORY PANEL MOLECULARo n 10-31-2024 RP PANEL ADENOVIRUS Not Detected INFLUENZA A Not Detected INFLUENZA A (SUBTYPE H1) Not Detected INFLUENZA A (SUBTYPE H3) Not Detected INFLUENZA B Not Detected HUMAN METAPHNEUMO Not Detected PARAINFLUENZA 1 Not Detected PARAINFLUENZA 2 Not Detected PARAINFLUENZA 3 Not Detected PARAINFLUENZA 4 Not Detected RHINOVIRUS Not Detected RSV A Not Detected RSV B Not Detected Normal [facility] Comment on above: Performed By: #### M 100.070 #### [facility] [address] [place], [address] Respiratory pathogens DNA an d RNA panel ALICE+probe (Resp)Ordered By: Elidia Cunningham on 10-31-2024 Respiratory Panel (PCR) [facility] Respiratory pathogens detect ion panel by molecular detection methodOrdered By: Elidia Cunningham on 10-31-2024 Respiratory pathogens DNA and RNA panel ALICE+probe (Resp) [facility] Serum creatinine measurement (mass/volume)Ordered By: Jimy Jarquin on 10-31-2024 Creatinine [Mass/Vol] 6.33 mg/dL High 0.70-1.20 [facility] Serum globulin measurementOr dered By: Elidia Cunningham on 10-31-2024 Globulin (S) [Mass/Vol] 3.3 g/dL 2.2-4.2 [facility] Serum glucose measurement (m ass/volume)Ordered By: Jimy Jarquin on 10-31-2024 Glucose [Mass/Vol] 132 mg/dL High 70-99 [facility] Serum or plasma alanine velasquez otransferase (ALT) measurementOrdered By: Elidia Cunningham on 10-31-2024 ALT [Catalytic activity/Vol] 22 U/L <47 [facility] Serum or plasma albumin cuong urement (mass/volume)Ordered By: Elidia Cunningham on 10-31-2024 Albumin [Mass/Vol] 3.2 g/dL Low 3.4-4.8 [facility] Serum or plasma albumin/glob ulin mass ratioOrdered By: Elidia Cunningham on 10-31-2024 Albumin/Globulin [Mass ratio] 1.0 {ratio} 0.9-2.4 [facility] Serum or plasma alkaline padmini sphatase measurementOrdered By: Elidia Cunningham on 10-31-2024 ALP [Catalytic activity/Vol] 67 U/L 40-129 [facility] Serum or plasma calcium cuong urement (mass/volume)Ordered By: Jimy Jarquin on 10-31-2024 Calcium [Mass/Vol] 9.1 mg/dL 7.6-11.0 [facility] Serum or plasma urea nitroge n measurement (mass/volume)Ordered By: Jimy Jarquin on 10-31-2024 Urea nitrogen [Mass/Vol] 48 mg/dL High 4-19 [facility] Serum phosphorus measurement Ordered By: Elidia Cunningham on 10-31-2024 Phosphorus Level 3.3 mg/dL 2.7-4.5 [facility] Sodium levelOrdered By: Cristopher Jarquin on 10-31-2024 Sodium [Moles/Vol] 132 mmol/L Low 133-145 [facility] Strep pneumoniae Antig(UR,CS F)on 10-31-2024 STPAG URINE INTERPRETATION Strep pneumoniae Antig(UR,CSF) Strep pneumoniae Antig(UR,CSF) Negative Urine Presumptive negative for pneumococcal pneumonia, suggesting no current or recent pneumococcal infection. Infection due to S pneumoniae cannot be ruled out since the antigen present in the sample may be below the detection limit of the test. Strep pneumo Test Negative URINE (See interpretation below) Normal [facility] Comment on above: Performed By: #### M 300.4600, M300.4500 #### [facility] [address] [place] [address], [address] Streptococcus pneumoniae ant igen assayOrdered By: Elidia Cunningham on 10-31-2024 Streptococcus pneumoniae Antigen (M [facility] Total proteinOrdered By: Aut umn Octavio on 10-31-2024 Protein [Mass/Vol] 6.5 g/dL 5.9-8.4 [facility] Urine Legionella pneumophila antigen detectionOrdered By: Elidia Cunningham on 10-31-2024 L. pneumophila Ag Ql (U) [facility] White blood cell (WBC) count Ordered By: Jimy Jarquin on 10-31-2024 WBC (Bld) [#/Vol] 16.4 10*3/uL High 4.4-11.0 [facility] Surgery Visit Reporton 10-13 Surgery Visit Report [facility] [address] [place] [address] OFFICE VISIT Date of Service: 10/13/24 MR#: [id number] Acct: [id number] Name: MARLO ADAMSON Rep #: [id number] : 1960 Provider: Dr. Maria Ines molina MD Age/Sex: 64/M Location: [facility] Status: Signed Intake Vital Signs 06/08/21 11:37 [...] hydrocortisone 2.5 % topical cream 1 applic MA QD-BID PRN hemorrhoi ds 10/13/24 10/13/24 Rx with perineal applicator #30 grams (Proctozone-HC) oxycodone 10 mg tablet 10 mg PO TID PRN 10/13/24 10/13/24 History vitamin B complex-vitamin C-folic 1 tab PO QDAY 10/13/24 10/13/24 H istory acid 0.8 mg tablet (Renal-Svetlana) [facility] Medical History Acute renal failure Alcohol use [...] states he did have a CT at [facility] sometime in the past we will try to get that record. Patient has never had a colonoscopy, den (more content not included)... Normal [facility] No Panel InformationOrdered By: Dr. Shirley on 10-01-2022 Hepatitis B Surface Antigen Non-Reactive Nonreactive [facility] Serum hepatitis B virus core antibody detectionOrdered By: Dr. Shirley on 10-01-2022 HBV core Ab Ql (S) Negative Negative [facility] Comment on above: Performed at: [employer] [address] [id number] Director: Ted Horne PhD, Phone: [phone] Serum hepatitis B virus surf valery antibody IgG detectionOrdered By: Dr. Shirley on 10-01-2022 HBV surface IgG Ql (S) Non-Reactive [facility] Comment on above: Non Reactive: Incons istent with immunity less than <10 mIU/mL Reactive: Consistent with immunity greater than or equal to 10 mIU/mL Basophil percentageOrdered B y: Dr. Shirley on 09-17-2022 Basophil percentage 4.2 mg/dL 2.5-4.9 [facility] Bilirubin [Mass/Vol] 0.50 mg/dL 0.20-1.00 [facility] Comment on above: For patients on eltr ombopag therapy, use of Dimension [place] TBIL is not recommended. Chloride [Moles/Vol] 109 mmol/L 98-107 [facility] Glucose [Mass/Vol] 96 mg/dL 74-106 [facility] Potassium [Moles/Vol] 4.9 mmol/L 3.5-5.1 [facility] Protein [Mass/Vol] 6.7 g/dL 6.4-8.2 [facility] Sodium [Moles/Vol] 138 mmol/L 136-145 [facility] WBC (Bld) [#/Vol] 6.8 10*3/uL 4.4-11.0 [facility] Blood erythrocytes count (nu mber/volume)Ordered By: Dr. Shirley on 09-17-2022 RBC (Bld) [#/Vol] 4.00 10*6/uL 4.6-6.2 [facility] Blood hemoglobin measurement (mass/volume)Ordered By: Dr. Shirley on 09-17-2022 Hemoglobin (Bld) [Mass/Vol] 11.8 g/dL 13.0-16.5 [facility] Blood platelet mean volumeOr dered By: Dr. Shirley on 09-17-2022 Platelet mean volume (Bld) [Entitic vol] 10.5 fL 6.2-12.0 [facility] Determination of erythrocyte mean corpuscular volume (MCV)Ordered By: Dr. Shirley on 09-17-2022 MCV (RBC) [Entitic vol] 91.8 fL 80-94 [facility] Direct bilirubinOrdered By: Dr. Shirley on 09-17-2022 Bilirubin.direct [Mass/Vol] 0.18 mg/dL 0.00-0.30 [facility] Hematocrit Auto (Bld) [Volum e fraction]Ordered By: Dr. Shirley on 09-17-2022 Hematocrit (Bld) [Volume fraction] 36.7 % 40-54 [facility] - Chemistry and C hemistry - challengeOrdered By: Dr. Shirley on 09-17-2022 ALP [Catalytic activity/Vol] 68 U/L 45-117 [facility] ALT [Catalytic activity/Vol] 14 U/L 16-61 [facility] CO2 [Moles/Vol] 23.0 mmol/L 21.0-32.0 [facility] Globulin (S) [Mass/Vol] 3.5 g/dL 2.2-4.2 [facility] Urea nitrogen/Creatinine [Mass ratio] 9.7 mg/mg 10-20 [facility] - Hematology and Cell countsOrdered By: Dr. Shirley on 09-17-2022 Erythrocyte distribution width (RBC) [Entitic vol] 43.1 fL 35.1-43.9 [facility] Erythrocyte distribution width (RBC) [Ratio] 12.8 % 11.6-14.6 [facility] MCH (RBC) [Entitic mass] 29.5 pg 27.0-32.0 [facility] MCHC Auto (RBC) [Mass/Vol]Or dered By: Dr. Shirley on 09-17-2022 MCHC (RBC) [Mass/Vol] 32.2 g/dL 32-36 [facility] No Panel InformationOrdered By: Dr. Shirley on 09-17-2022 Estimated GFR (MDRD) Amer 14 mL/min >60 [facility] Comment on above: GFR Calc Estimated GFR (MDRD) Non-Af Amer 11 mL/min >60 [facility] Comment on above: Non- GFR Calc Parathyroid Hormone (Intact) 327.7 pg/mL 18.4-80.1 [facility] Vitamin D 25-Hydroxy 45.6 ng/mL [facility] Comment on above: Vitamin D 25(OH) Sta tus Range Deficiency <20 ng/mL (50nmol/L) Insufficiency 20 - 30 ng/mL (50 - 75 nmol/L) Sufficiency 30 - 100 ng/mL (75 - 250 nmol/L) Toxicity >100 ng/mL (>250 nmol/L) Platelets bldOrdered By: Dr. Shirley on 09-17-2022 Platelets (Bld) [#/Vol] 121 10*3/uL 150-450 [facility] Serum or plasma albumin cuong urement (mass/volume)Ordered By: Dr. Shirley on 09-17-2022 Albumin [Mass/Vol] 3.2 g/dL 3.2-5.0 [facility] Serum or plasma calcium cuong urement (mass/volume)Ordered By: Dr. Shirley on 09-17-2022 Calcium [Mass/Vol] 8.6 mg/dL 8.5-10.1 [facility] Serum or plasma creatinine m easurement (mass/volume)Ordered By: Dr. Shirley on 09-17-2022 Creatinine [Mass/Vol] 5.54 mg/dL 0.70-1.30 [facility] Comment on above: The validity of the calculated GFR & GFRAA in patients over 70 years has not been determined. Clinical correlation is essential. Serum or plasma urea nitroge n measurement (mass/volume)Ordered By: Dr. Shirley on 09-17-2022 Urea nitrogen [Mass/Vol] 54 mg/dL 7-18 [facility] Thin prep Papanicolaou smear with manual screeningOrdered By: Dr. Shirley on 09-17-2022 Thin prep Papanicolaou smear with manual screening 11 U/L 15-37 [facility] Thin prep Papanicolaou smear with manual screening 6 5-15 [facility] Urine creatinine measurement (mass/volume)Ordered By: Dr. Shirley on 09-17-2022 Creatinine (U) [Mass/Vol] 67.30 mg/dL NO RANGE EST. [facility] Urine protein measurement (m ass/volume)Ordered By: Dr. Shirley on 09-17-2022 Protein (U) [Mass/Vol] 146.1 mg/dL 0.0-11.8 [facility] Urine protein/creatinine mas s ratioOrdered By: Dr. Shirley on 09-17-2022 Protein/Creatinine (U) [Mass ratio] 2171 mg/g CRE 0-200 [facility] Basophil percentageon 2021 Basophil percentage 4.0 mg/dL 2.5-4.9 [facility] Work Phone: Chloride [Moles/Vol] 111 mmol/L 98-107 [facility] Work Phone: Glucose [Mass/Vol] 92 mg/dL 74-106 [facility] Work Phone: Potassium [Moles/Vol] 4.5 mmol/L 3.5-5.1 [facility] Work Phone: Sodium [Moles/Vol] 137 mmol/L 136-145 [facility] Work Phone: WBC (Bld) [#/Vol] 6.9 10*3/uL 4.4-11.0 [facility] Work Phone: Blood erythrocytes count (nu mber/volume)on 11-19-2021 RBC (Bld) [#/Vol] 4.31 10*6/uL 4.6-6.2 [facility] Work Phone: [phone] Blood hemoglobin measurement (mass/volume)on 11-19-2021 Hemoglobin (Bld) [Mass/Vol] 12.7 g/dL 13.0-16.5 [facility] Work Phone: Blood platelet mean volumeon 11-19-2021 Platelet mean volume (Bld) [Entitic vol] 10.1 fL 6.2-12.0 [facility] Work Phone: [phone] Determination of erythrocyte mean corpuscular volume (MCV)on 11-19-2021 MCV (RBC) [Entitic vol] 90.0 fL 80-94 [facility] Work Phone: Hematocrit Auto (Bld) [Volum e fraction]on 11-19-2021 Hematocrit (Bld) [Volume fraction] 38.8 % 40-54 [facility] Work Phone: [phone] Laboratory - Chemistry and C hemistry - challengeon 11-19-2021 CO2 [Moles/Vol] 20.0 mmol/L 21.0-32.0 [facility] Work Phone: [phone] Urea nitrogen/Creatinine [Mass ratio] 9.7 mg/mg 10-20 [facility] Work Phone: Laboratory - Hematology and Cell countson 11-19-2021 Erythrocyte distribution width (RBC) [Entitic vol] 44.6 fL 35.1-43.9 [facility] Work Phone: Erythrocyte distribution width (RBC) [Ratio] 13.5 % 11.6-14.6 [facility] Work Phone: MCH (RBC) [Entitic mass] 29.5 pg 27.0-32.0 [facility] Work Phone: MCHC Auto (RBC) [Mass/Vol]on 11-19-2021 MCHC (RBC) [Mass/Vol] 32.7 g/dL 32-36 [facility] Work Phone: No Panel Informationon 11-19 Estimated GFR (MDRD) Amer 18 mL/min >60 [facility] Work Phone: Comment on above: GFR Calc Estimated GFR (MDRD) Non-Af Amer 15 mL/min >60 [facility] Work Phone: Comment on above: Non- GFR Calc Parathyroid Hormone (Intact) 148.8 pg/mL 18.4-80.1 [facility] Work Phone: Vitamin D 25-Hydroxy 61.0 ng/mL [facility] Work Phone: Comment on above: Vitamin D 25(OH) Sta tus Range Deficiency <20 ng/mL (50nmol/L) Insufficiency 20 - 30 ng/mL (50 - 75 nmol/L) Sufficiency 30 - 100 ng/mL (75 - 250 nmol/L) Toxicity >100 ng/mL (>250 nmol/L) Platelets bldon 11-19-2021 Platelets (Bld) [#/Vol] 146 10*3/uL 150-450 [facility] Work Phone: Serum or plasma albumin cuong urement (mass/volume)on 11-19-2021 Albumin [Mass/Vol] 3.3 g/dL 3.2-5.0 [facility] Work Phone: Serum or plasma calcium cuong urement (mass/volume)on 11-19-2021 Calcium [Mass/Vol] 8.9 mg/dL 8.5-10.1 [facility] Work Phone: Serum or plasma creatinine m easurement (mass/volume)on 11-19-2021 Creatinine [Mass/Vol] 4.42 mg/dL 0.70-1.30 [facility] Work Phone: Comment on above: The validity of the calculated GFR & GFRAA in patients over 70 years has not been determined. Clinical correlation is essential. Serum or plasma urea nitroge n measurement (mass/volume)on 11-19-2021 Urea nitrogen [Mass/Vol] 43 mg/dL 7-18 [facility] Work Phone: Urine creatinine measurement (mass/volume)on 11-19-2021 Creatinine (U) [Mass/Vol] 109.00 mg/dL NO RANGE EST. [facility] Work Phone: [phone] Urine protein measurement (m ass/volume)on 11-19-2021 Protein (U) [Mass/Vol] 61.4 mg/dL 0.0-11.8 [facility] Work Phone: [phone] Urine protein/creatinine mas s ratioon 11-19-2021 Protein/Creatinine (U) [Mass ratio] 563 mg/g CRE 0-200 [facility] Work Phone: Basophil percentageon 2021 Chloride [Moles/Vol] 111 mmol/L 98-107 [facility] Work Phone: [phone] Glucose [Mass/Vol] 91 mg/dL 74-106 [facility] Work Phone: Potassium [Moles/Vol] 4.7 mmol/L 3.5-5.1 [facility] Work Phone: [phone] Sodium [Moles/Vol] 140 mmol/L 136-145 [facility] Work Phone: Laboratory - Chemistry and C hemistry - challengeon 08-10-2021 CO2 [Moles/Vol] 25.0 mmol/L 21.0-32.0 [facility] Work Phone: Urea nitrogen/Creatinine [Mass ratio] 10.7 mg/mg 10-20 [facility] Work Phone: No Panel Informationon 08-10 Estimated GFR (MDRD) Amer 18 mL/min >60 [facility] Work Phone: Comment on above: GFR Calc Estimated GFR (MDRD) Non-Af Amer 15 mL/min >60 [facility] Work Phone: Comment on above: Non- GFR Calc Serum or plasma calcium cuong urement (mass/volume)on 08-10-2021 Calcium [Mass/Vol] 9.1 mg/dL 8.5-10.1 [facility] Work Phone: Serum or plasma creatinine m easurement (mass/volume)on 08-10-2021 Creatinine [Mass/Vol] 4.29 mg/dL 0.70-1.30 [facility] Work Phone: Comment on above: The validity of the calculated GFR & GFRAA in patients over 70 years has not been determined. Clinical correlation is essential. Serum or plasma urea nitroge n measurement (mass/volume)on 08-10-2021 Urea nitrogen [Mass/Vol] 46 mg/dL 7-18 [facility] Work Phone: Thin prep Papanicolaou smear with manual screeningon 08-10-2021 Thin prep Papanicolaou smear with manual screening 4 5-15 [facility] Work Phone: Urine creatinine measurement (mass/volume)on 08-10-2021 Creatinine (U) [Mass/Vol] 92.10 mg/dL NO RANGE EST. [facility] Work Phone: Urine protein measurement (m ass/volume)on 08-10-2021 Protein (U) [Mass/Vol] 51.2 mg/dL 0.0-11.8 [facility] Work Phone: Urine protein/creatinine mas s ratioon 08-10-2021 Protein/Creatinine (U) [Mass ratio] 556 mg/g CRE 0-200 [facility] Work Phone: CNCOon 10-18-2020 CNCO Letter Text Normal [facility] CNPViki 09-29-2020 CNPN Telephone (FAMPWS) MARLO ADAMSON ([id number]) 1960 Date Time Provider Department 09/29/20 CETO [...] that form if you receive it. To Wilkes III MD 09/29/2020 5:38 PM Signed noted [...] and abscess of unspecified site [L03*01/29/2007 12/15/2018 ME NOS EPISODE CARE UNSPEC [I21.9] 02/03/2007 Hematuria [...] TO WILKES III, MD on 09/29/20 Normal [facility] XR Chest PA and Lateralon IMPRESSION: Stable exam without acute findings. Wedger Machine: PSCB Transcribe Date/Time: Jul 04 2020 5:42P Dictated by : CESARIO DÍAZ MD This examination was interpreted and the report reviewed and electronically signed by: CESARIO DÍAZ MD on Jul 04 2020 5:46PM [facility] DIVISION OF RADIOLOGY * * [...] post median sternotomy. DIVISION OF RADIOLOGY Provider, [facility] - 07/04/2020 * * *Final Report* * [...] IMPRESSION IMPRESSION: Stable exam without acute findings. Wedger Machine: PSCB Transcribe Date/Time: Jul 04 2020 5:42P Dictated by : CESARIO DÍAZ MD This examination was interpreted and the report reviewed and electronically signed by: CESARIO DÍAZ MD on Jul 04 2020 5:46PM EST [facility] Radiology Study observation (narrative) [facility] XR Chest PA and LateralOrder ed By: [facility] Provider on 07-04-2020 [facility] Vital Signs Date Time Vital Sign Value Performing Clinician Faci lity 01-21-2025 16:26-0400 Body temperature 97.7 [degF] Dr. Marlo Pollard DO Work Phone: [facility] 01-21-2025 16:26-0400 Diastolic blood pressure 77 mm[Hg] Dr. Marlo Pollard DO Work Phone: [facility] 01-21-2025 16:26-0400 Heart rate 56 /min Dr. Marlo Pollard DO Work Phone: [facility] 01-21-2025 16:26-0400 Respiratory rate 16 /min Dr. Marlo Pollard DO Work Phone: [facility] 01-21-2025 16:26-0400 SaO2% (BldA) [Mass fraction] 97 % Dr. Marlo Pollard DO Work Phone: [facility] 01-21-2025 16:26-0400 Systolic blood pressure 149 mm[Hg] Dr. Marlo Pollard DO Work Phone: [facility] 01-21-2025 10:25-0400 Body height 177.[address] Marlo Pollard DO Work Phone: [facility] 01-21-2025 10:25-0400 Body mass index (BMI) [Ratio] 23.1 kg/m2 Dr. Marlo Pollard DO Work Phone: [facility] 01-21-2025 10:25-0400 Body weight [address] Marlo Pollard DO Work Phone: [facility] 12-22-2024 08:50-0400 Body temperature 97.3 [degF] Dr. Marlo Pollard DO Work Phone: [facility] 12-22-2024 08:50-0400 Diastolic blood pressure 66 mm[Hg] Dr. Marlo Pollard DO Work Phone: [facility] 12-22-2024 08:50-0400 Heart rate 63 /min Dr. Marlo Pollard DO Work Phone: [facility] 12-22-2024 08:50-0400 Respiratory rate 16 /min Dr. Marlo Pollard DO Work Phone: [facility] 12-22-2024 08:50-0400 SaO2% (BldA) [Mass fraction] 100 % Dr. Marlo Pollard DO Work Phone: [facility] 12-22-2024 08:50-0400 Systolic blood pressure 101 mm[Hg] Dr. Marlo Pollard DO Work Phone: [facility] 12-22-2024 06:33-0400 Body height 177.[address] Marlo Pollard DO Work Phone: [facility] 12-22-2024 06:33-0400 Body mass index (BMI) [Ratio] 23.3 kg/m2 Dr. Marlo Pollard DO Work Phone: [facility] 12-22-2024 06:33-0400 Body weight [address] Marlo Pollard DO Work Phone: [facility] 11-02-2024 13:11-0400 Heart rate 67 /min Dr. Marlo Pollard DO Work Phone: [facility] 11-02-2024 13:11-0400 Respiratory rate 16 /min Dr. Marlo Pollard DO Work Phone: [facility] 11-02-2024 13:11-0400 SaO2% (BldA) [Mass fraction] 92 % Dr. Marlo Pollard DO Work Phone: [facility] 11-02-2024 13:06-0400 Body temperature 97.8 [degF] Dr. Marlo Pollard DO Work Phone: [facility] 11-02-2024 13:06-0400 Diastolic blood pressure 65 mm[Hg] Dr. Marlo Pollard DO Work Phone: [facility] 11-02-2024 13:06-0400 Systolic blood pressure 138 mm[Hg] Dr. Marlo Pollard DO Work Phone: [facility] 11-02-2024 03:44-0400 Inhaled oxygen flow rate 2 L/min Dr. Marlo Pollard DO Work Phone: [facility] 11-01-2024 11:41-0400 Body mass index (BMI) [Ratio] 22.2 kg/m2 Dr. Marlo Pollard DO Work Phone: [facility] 11-01-2024 11:41-0400 Body weight 70.[address] Marlo Pollard DO Work Phone: [facility] 10-31-2024 16:55-0400 Body height 177.[address] Marlo Pollard DO Work Phone: [facility] 10-31-2024 03:47-0400 Body temperature 98.1 [degF] Dr. Marlo Pollard DO Work Phone: [facility] 10-31-2024 03:47-0400 Diastolic blood pressure 69 mm[Hg] Dr. Marlo Pollard DO Work Phone: [facility] 10-31-2024 03:47-0400 Heart rate 77 /min Dr. Marlo Pollard DO Work Phone: [facility] 10-31-2024 03:47-0400 Respiratory rate 16 /min Dr. Marlo Pollard DO Work Phone: [facility] 10-31-2024 03:47-0400 SaO2% (BldA) [Mass fraction] 93 % Dr. Marlo Pollard DO Work Phone: [facility] 10-31-2024 03:47-0400 Systolic blood pressure 146 mm[Hg] Dr. Marlo Pollard DO Work Phone: [facility] 10-31-2024 03:45-0400 Inhaled oxygen flow rate 3 L/min Dr. Marlo Pollard DO Work Phone: [facility] 10-31-2024 01:58-0400 Body height 177.[address] Marlo Pollard DO Work Phone: [facility] 10-31-2024 01:58-0400 Body mass index (BMI) [Ratio] 22.7 kg/m2 Dr. Marlo Pollard DO Work Phone: [facility] 10-31-2024 01:58-0400 Body weight 71.[address] Marlo Pollard DO Work Phone: [facility] 10-13-2024 14:14-0400 Body mass index (BMI) [Ratio] 24.2 kg/m2 Dr. Marlo Pollard DO Work Phone: [facility] 10-13-2024 14:14-0400 Body weight 76.[address] Marlo Pollard DO Work Phone: [facility] 10-13-2024 14:14-0400 Diastolic blood pressure 79 mm[Hg] Dr. Marlo Pollard DO Work Phone: [facility] 10-13-2024 14:14-0400 Heart rate 66 /min Dr. Marlo Pollard DO Work Phone: [facility] 10-13-2024 14:14-0400 Respiratory rate 17 /min Dr. Marlo Pollard DO Work Phone: [facility] 10-13-2024 14:14-0400 SaO2% (BldA) [Mass fraction] 97 % Dr. Marlo Pollard DO Work Phone: [facility] 10-13-2024 14:14-0400 Systolic blood pressure 156 mm[Hg] Dr. Marlo Pollard DO Work Phone: [facility] Encounters Encounter Date Encounter Type Care Provider Facility Start: 01-21-2025 Non-patient / Non-visit Dr. Ervin Mckoy MD -[facility] Start: 01-21-2025 End: 01-21-2025 Admission to same day surgery center Dr. Maria Ines Mckoy MD -[facility] Start: 01-21-2025 End: 01-21-[address] Marlo Pollard DO Work Phone: -[facility] Start: 12-22-2024 Non-patient / Non-visit Dr. Ervin Mckoy MD -[facility] Start: 12-22-2024 End: 12-22-2024 Admission to same day surgery center Dr. Maria Ines Mckoy MD -Endoscopy Work Phone: Start: 12-22-2024 End: 12-22-[address] Marlo Pollard DO Work Phone: [facility] Work Phone: Start: 11-02-2024 Non-patient / Non-visit Dr. Himanshu lee [facility] Work Phone: Start: 11-01-2024 Non-patient / Non-visit Dr. Himanshu lee [facility] Work Phone: Start: 10-31-2024 ambulatory Marlo Pollard Facility: [facility] Start: 10-31-2024 End: 11-02-2024 Evaluation and management of inpatient Dr. Elidia Cunningham MD -Medical [facility] 3 Work Phone: Start: 10-13-2024 End: 10-13-[address] Maria Ines Mckoy MD -[facility] Work Phone: Start: 10-13-2024 End: 10-13-2024 ambulatory [facility] Latrice Facility:[facility] Start: 10-01-2022 End: 10-01-2022 ambulatory [facility] Work Phone: Start: 10-01-2022 End: 10-01-2022 Patient encounter procedure [facility] Start: 09-17-2022 End: 09-17-2022 ambulatory [facility] Work Phone: Start: 09-17-2022 End: 09-17-2022 Patient encounter procedure [facility] Start: 11-19-2021 End: 11-19-[address] Marlo Pollard Work Phone: [facility] Start: 08-10-2021 End: 08-10-[address] [facility] Start: 07-31-2021 End: 07-31-[address] Marlo Pollard Work Phone: [facility] Start: 07-04-2020 End: 07-04-2020 Subsequent hospital visit by physician [facility]r [facility] Work Phone: Radiology Comment on above: Suspected 2019 novel coronavirus infection [Z20.828] Procedures Date Procedure Procedure Detail Performing Clinician Start: 01-21-[address] Magro Pollard DO Work Phone: Start: 12-22-2024 Colonoscopy [...] panel - S stevo or Plasma [facility] [place] Work Phone: Plan of Treatment Date Care Activity Detail Author Start: 2035 RSV Vaccine (1 - 1-dose 75+ series) RSV Vaccine (1 - 1-dose 75+ series) [facility] Start: 04-14-2029 Urine microalbumin profile DTaP,Tdap,Td Vaccine (3 - Td or Tdap) [facility] Start: 06-14-2025 Lipid panel Lipid Screening [facility] Start: 04-18-2025 Prostate specific antigen measurement Prostate Cancer Screening Discussion [facility] Start: 01-21-2025 Patient discharge [facility] Start: 12-22-2024 Colsc flx w/rmvl of tumor polyp lesion snare tq COLONOSCOPY W/LESION REMOVAL [facility] Start: 12-22-2024 Patient discharge [facility] Start: 11-02-2024 Patient discharge [facility] Start: 11-02-2024 Physiotherapy of chest [facility] Start: 11-01-2024 End: 11-01-2024 [facility] Start: 11-01-2024 Hemodialysis care [facility] Start: 10-31-2024 Following clinical pathway protocol [facility] Start: 10-31-2024 Assessment of risk of venous thromboembolism [facility] Start: 10-31-2024 Bacteria identified in Sputum by Culture [facility] Start: 10-31-2024 Fall prevention [facility] Start: 10-31-2024 Incentive spirometry [facility] Start: 10-31-2024 Inhalation therapy procedure [facility] Start: 10-31-2024 Insertion of catheter into peripheral vein [facility] Start: 10-31-2024 Introduction of urinary catheter [facility] Start: 10-31-2024 Measuring intake and output [facility] Start: 10-31-2024 Methicillin resistant Staphylococcus aureus (MRSA) DNA [Presence] in Nose by ALICE with probe detection [facility] Start: 10-31-2024 Methicillin resistant Staphylococcus aureus screening test [facility] Start: 10-31-2024 Oxygen therapy [facility] Start: 10-31-2024 Providing care according to standard [facility] Start: 10-31-2024 Provision of activity privileges [facility] Start: 10-31-2024 Referral to report checker [facility] Start: 10-31-2024 Referral to occupational therapist [facility] Start: 10-31-2024 Referral to service [facility] Start: 10-31-2024 Taking nasal swab [facility] Start: 10-31-2024 [facility] Start: 10-31-2024 Following clinical pathway protocol [facility] Start: 10-31-2024 Verification routine [facility] Start: 10-31-2024 Legionella pneumophila Ag [Presence] in Urine [facility] Start: 10-31-2024 Respiratory pathogens DNA and RNA panel - Respiratory specimen by ALICE with probe detection [facility] Start: 10-31-2024 Streptococcus pneumoniae antigen assay [facility] Start: 10-31-2024 Admission procedure [facility] Start: 10-31-2024 Serum inorganic phosphate measurement [facility] Start: 10-31-2024 Patient referral to dietitian [facility] Start: 10-31-2024 [facility] Start: 03-28-2024 Covid-19 Vaccine () Covid-19 Vaccine () [facility] Start: 03-28-2024 Influenza vaccination Influenza Vaccine (#1) [facility] Start: 04-19-2023 Diabetes Screening Diabetes Screening [facility] Start: 06-19-2021 Annual PCP Team Chronic Disease Visit Annual PCP Team Chronic Disease Visit [facility] Start: 06-14-2021 Hepatitis B surface antibody level LDL Cholesterol [facility] Start: 04-19-2021 Complete blood count Hemoglobin/Hematocrit [facility] Start: 06-18-2020 Creatinine measurement Serum Creatinine [facility] Start: 06-07-2020 Screening for malignant neoplasm of colon [facility] Start: 08-12-2016 Pneumococcal vaccination Pneumococcal Vaccine (2 of 2 - PPSV23 or PCV20) [facility] Start: 2010 Shingrix Vaccine (1 of 2) Shingrix Vaccine (1 of 2) [facility] Start: 2005 Screening for malignant neoplasm of colon [facility] Start: 1978 Anxiety Screening Anxiety Screening [facility] Start: 1978 BP Controlled (<130/80) BP Controlled (<130/80) [facility] Start: 1978 Depression Screening Depression Screening [facility] Start: 1978 Hepatitis C screening Hepatitis C Screening [facility] Start: 1978 HIV screening HIV Screening [facility] Alanine aminotransfe rase [Enzymatic activity/volume] in Serum or Plasma [facility] Albumin [Mass/volume ] in Serum or Plasma [facility] Alkaline phosphatase [Enzymatic activity/volume] in Serum or Plasma [facility] Anion gap in Serum o r Plasma [facility] Bilirubin, total measurement [facility] BUN/Creatinine ratio [facility] Calcium [Mass/volume ] in Serum or Plasma [facility] Carbon dioxide, tota l [Moles/volume] in Central venous blood [facility] Colonoscopy [facility] Creatinine [Mass/vol ume] in Serum or Plasma [facility] Erythrocyte mean corpuscular volume determination [facility] Glucose [Mass/volume ] in Serum or Plasma [facility] Hematocrit [Volume Fraction] of Blood [facility] Hemoglobin [Mass/vol ume] in Blood [facility] Leukocytes [#/volume ] in Blood [facility] Magnesium measurement [facility] Mean corpuscular hem oglobin concentration determination [facility] Mean corpuscular hem oglobin determination [facility] Measurement of renal function [facility] Neutrophil count [facility] Neutrophil percent differential count [facility] Patient referral [facility] Work Phone: Platelets [#/volume] in Blood [facility] Potassium measurement [facility] Red blood cell count [facility] Red cell distributio n width determination [facility] Serum chloride measurement [facility] Sodium measurement [facility] Total protein measurement [facility] Urea nitrogen [Mass/ volume] in Serum or Plasma [facility] Immunizations Immunization Date Immunization Notes Care Provider Fa gerard 04-14-2019 tetanus toxoid, redu bud diphtheria toxoid, and acellular pertussis vaccine, adsorbed [facility] [place] Work Phone: [facility] 06-17-2016 pneumococcal conjuga te vaccine, 13 valent [facility] [place] Work Phone: [facility] 06-17-2016 influenza virus vacc ine, unspecified formulation [facility] [place] Work Phone: [facility] 06-17-2013 tetanus toxoid, redu bud diphtheria toxoid, and acellular pertussis vaccine, adsorbed Xr [place] Work Phone: [facility] Payers Date Payer Category Payer Medicare [id number] 2024 Self-pay [id number] 2024 Medicare [id number] 2015 Medicare MEDICARE MEDICAR E A AND B [id number] 2015-Present [phone] [place] [address] Medicare [id number] Medicare [id number] Unknown [id number] Unknown [id number] Unknown [id number] Unknown [id number] Unknown [id number] Unknown [id number] Unknown [id number] Unknown [id number] Unknown [id number] Unknown [id number] Social History Date Type Detail Facility Start: 06-06-2021 End: 06-06-2021 Tobacco smoking status NHIS Unknown if ever smoked [facility] Start: 1960 Sex Assigned At Male [facility] Start: 07-03-2011 End: 01-21-2025 Tobacco smoking status NHIS Smokes tobacco daily [facility] Work Phone: History of tobacco use Cigarette Smoker [facility] Start: 07-03-2011 End: 2020 Cigarettes smoked current (pack per day) - Reported 1 [facility] Start: 07-03-2011 Tobacco use and exposure Smokeless tobacco non-user [facility] Start: 06-19-2020 Alcoholic beverage intake Current non-drinker of alcohol (finding) [facility] Start: 06-19-2020 End: 2020 Tobacco use panel [facility] National Score (1-10 0), lower number is lower risk Not on file [facility] Start: 05-15-2010 Tobacco Comment occasionally [facility] Start: 1960 Sex assigned at Not on file [facility] Start: 06-04-2020 End: 07-04-2020 Exposure to SARS-CoV-2 (event) Not sure [facility] Start: 10-31-2024 End: 11-02-2024 Sex Male (finding) [facility] Medical Equipment Procedure Code Equipment Code Equipment [...] Result Facility 11-02-2024 Functional status Ambulates;Bathroom Priv [facility] Work Phone: Mental Status Date Assessment Result Facility 01-21-2025 Cognitive function Voice/Name [facility] Work Phone: 12-22-2024 Cognitive function Voice/Name [facility] Work Phone: 11-02-2024 Cognitive function Voice/Name [facility] Work Phone: 10-31-2024 Cognitive function Level Of Cons ciousness Awake;Alert;Appropriate;Follow s Commands [facility] Work Phone: Clinical Notes 2019 to 01-21-2025 Note Date & Type Note Facility 01-21-2025 Discharge summary Note Date/Time January 21, 2025 2:19pm [facility] Medical Records Department [address] [place] [address] Instructions for Home/Discharge Instructions 01/21/25 1417 MR#: [id number] Acct: [id number] Name: MARLO ADAMSON Rep #:[id number] : 1960 64 From: Maria Ines Mckoy MD PCP: Dr. Marlo Pollard, Status:REG [facility] Discharge Instructions Diet Discharge Diet: Light diet [...] weeks call the office for follow-up appointment [phone] Test Results: Test results from this visit will be discussed in further detail at your follow-up appointment, if applicable. Discharge Plan Admission Attending Provider: Maria Ines Mckoy Primary Care Provider: Marlo Pollard Instructions Print Language: Singaporean Discharge Orders/Prescriptions Prescriptions: Continued metoprolol tartrate 25 [...] % cream with perineal applicator 1 applic MA QD-BID PRN (Reason: hemorrhoids) Qty: 30 0RF [...] CC: Dr. Marlo Pollard DO ~ Signed [facility] Work Phone: [phone] Consult note [facility] Medical Records Department [address] [place] [address] Anesthesia Postop Eval I 01/21/25 1429 MR#: [id number] Acct: [id number] Name: MARLO ADAMSON Rodrigo Rep #:[id number] : 1960 64 From: Rosy Garcia PCP: Dr. Marlo Pollard DO Status:REG SDC Y Race: C Location: [place] [address] Anesthesia: Postop Eval I Current Vital Signs [...] 01/21/25 1430 RNA> Date _ Rosy Daley COSMETICIAN APPRENTICE Cosigner Signature: Date CC: ~ Signed [facility]06-27-2025 Discharge summary [facility] Medical Records Department [address] [place] [address] Instructions for Home/Discharge Instructions 01/21/25 1417 MR#: [id number] Acct: [id number] Name: MARLO ADAMSON Rep #:[id number] : 1960 64 From: Maria Ines Mckoy MD PCP: Dr. Marlo Pollard, Status:REG [facility] Discharge Instructions Diet Discharge Diet: Light diet [...] weeks call the office for follow-up appointment [phone] Test Results: Test results from this visit will be discussed in further detail at your follow- up appointment, if applicable. Discharge Plan Admission Attending Provider: Maria Ines Mckoy Primary Care Provider: Marlo Pollard Instructions Print Language: Singaporean Discharge Orders/Prescriptions Prescriptions: Continued metoprolol tartrate 25 [...] % cream with perineal applicator 1 applic MA QD-BID PRN (Reason: hemorrhoids) Qty: 30 0RF [...] placed): Home, Self Care 01/21/25 1419Maria Ines Mckyo MD CC: Dr. Marlo Pollard DO ~ Signed [facility]06-27-2025 Consult note Author Isacc [facility] Note Date/Time January 21, 2025 11:0 3am [facility] Medical Records Department [address] [place] [address] Pre-Anesthesia Evaluation 01/21/25 1057 MR#: [id number] Acct: [id number] Name: MARLO ADAMSON Rodrigo Rep #:[id number] : 1960 64 From: Isacc Cavanaugh MD PCP: Dr. 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 tender Hx Hospitalization Yes: 11-19 infection 01/07/25 09:36 [...] sips of water?: Yes PONV PONV - endless steamer tender: PONV - endless steamer tender Female No 01/07/25 09:36 HX of Motion [...] 01/21/25 10:25 Respiratory Assessment Respiratory Assessment - endless steamer tender: Respiratory Tract Infection Hx - endless steamer tender Hx Respiratory Tract Infection No 01/07/25 09:36 STOP Sleep Apnea STOP Sleep Apnea - endless steamer tender: STOP Sleep Apnea - endless steamer tender Hx Hypertension Yes 01/07/25 09:36 Hx Sleep [...] Tobacco Use History Tobacco Use History - endless steamer tender: Tobacco Use History - endless steamer tender Tobacco Use Smoking Status Current every day [...] today.) Hematologic Medial History Hematologic Hx - endless steamer tender: 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 Medical Records Department [address] [place] [address] History & Physical Exam 01/21/25 1004 MR#: [id number] Acct: [id number] Name: MARLO ADAMSON Rep #:[id number] : 1960 64 From: Maria Ines Mckoy MD PCP: Dr. Marlo Pollard, DO Status:REG [facility] Location: [facility]07-1 History and Physical Date of Admission: 01/21/25 12/22/24 0708 MR#: [id number] Acct: [id number] Name: MARLO ADAMSON Rep #: [id number] : 1960 64 From: Maria Ines Mckoy MD PCP: Dr. Marlo Pollard, DO Status: REG [facility] Location: [facility]12-1 HPI - General General Date of Service: [...] states he did have a CT at [facility] sometime in the past we will try to get that record. Patient has never had a colonoscopy, denies any family history of colon cancer. [facility] Medical History (Updated 12/22/24 @ 07:14 by [...] hydrocortisone 2.5 % topical cream 1 applic MA QD-BID PRN hemorrhoids 10/1312/21/24 Rx with perineal [...] ACHE Discharge Is Pt Admitted From a Correction, or a Senior Care: No After D/C, Where Do you Plan [...] cc: Dr. Marlo Pollard DO; Dr. Maria Iens Mckoy MD ~* Signed ADDENDUM by Dr. Maria Ines Mckoy MD on 01/21/25 at 1100 Addendum Plan for hemorrhoidectomy as well as fistulotomy discussed procedure. Includingrisk but not limited to infection, bleeding, postop pain, placement of seton. 01/21/25 1100<Electronically signed by Maria Ines Mckoy MD> Cosigner Signature (if applicable): cc: Dr. Marlo Pollard DO; Dr. Maria Ines Mckoy MD ~* Signed [facility] Work Phone: 1(708) 787-195206-27-2025 Consult note [facility] Medical Records Department [address] [place] [address] Pre-Anesthesia Evaluation 01/21/25 1057 MR#: [id number] Acct: [id number] Name: MARLO ADAMSON Rep #:[id number] : 1960 64 From: Isacc Cavanaugh MD PCP: Dr. Marlo Pollard DO Status:REG SDC Y Race: C Location: [facility]07- ASA Classification* ASA Classification ASA Classification: 3 [...] possible fistulotomy Anesthesia History Anesthesia History - endless steamer tender: Anesthesia History - endless steamer tender Hx Hospitalization Yes: - infection 01/07/25 09:36 [...] sips of water?: Yes PONV PONV - endless steamer tender: PONV - endless steamer tender Female No 01/07/25 09:36 HX of Motion [...] 01/21/25 10:25 Respiratory Assessment Respiratory Assessment - endless steamer tender: Respiratory Tract Infection Hx - endless steamer tender Hx Respiratory Tract Infection No 01/07/25 09:36 STOP Sleep Apnea STOP Sleep Apnea - endless steamer tender: STOP Sleep Apnea - endless steamer tender Hx Hypertension Yes 01/07/25 09:36 Hx Sleep [...] Tobacco Use History Tobacco Use History - endless steamer tender: Tobacco Use History - endless steamer tender Tobacco Use Smoking Status Current every day [...] today.) Hematologic Medial History Hematologic Hx - endless steamer tender: Hematologic Medical Hx - card sorter Hx of Blood Transfusion No 01/07/25 09:36 [...] confused, unrespo /Reproduction History /Reproductive History - endless steamer tender: /Reproductive Hx- endless steamer tender Hx Now No 01/07/25 09:36 Gestational Age (in weeks): EDC: Hx Hx Para Hx Section SAB No 01/07/25 09:36 Active Medications Active Medications: Current Medications Generic Name Dose Route Start Last Admin Trade Name Freq PRN Reason Stop Dose Admin Sodium Chloride 500 mls @ 0 mls/hr 01/21/25 10:15 01/21/25 10:35 IV 30 mls/hr .Q0M MARIJA Administration O [facility] Medical History (Updated 01/07/25 @ 10:25 by [...] hydrocortisone 2.5 % topical cream 1 applic MA QD-BID PRN hemorrhoids 10/13/24 01/20/25 Rx with [...] Isacc Roy Signature: Date CC: ~ Signed [facility]06-27-2025 History and physical note [facility] Medical Records Department [address] [place] [address] History & Physical Exam 01/21/25 1004 MR#: [id number] Acct: [id number] Name: MARLO ADAMSON Rep #:[id number] : 1960 64 From: Maria Ines Mckoy MD PCP: Dr. Marlo Pollard, DO Status:REG [facility] Location: [place] [address] History and Physical Date of Admission: 01/21/25 12/22/24 0708 MR#: [id number] Acct: [id number] Name: MARLO ADAMSON Rep #: [id number] : 1960 64 From: Maria Ines Mckoy MD PCP: Dr. Marlo Pollard, DO Status: REG [facility] Location: [place] [address] HPI - General General Date of Service: [...] states he did have a CT at [facility] sometime in the past we will try to get that record. Patient has never had a colonoscopy, denies any family history of colon cancer. [facility] Medical History (Updated 12/22/24 @ 07:14 by [...] hydrocortisone 2.5 % topical cream 1 applic MA QD-BID PRN hemorrhoids 10/1312/21/24 Rx with perineal [...] ACHE Discharge Is Pt Admitted From a Correction, or a Senior Care: No After D/C, Where Do you Plan [...] Dr. Maria Ines Mckoy MD ~* Signed [facility]06-27-2025 [facility] Medical Records Department [address] [place] [address] History Physical Exam 01/21/25 1004 MR#: [id number] Acct: [id number] Name: MARLO ADAMSON Rep #: [id number] : 1960 64 From: Maria Ines Mckoy MD PCP: Dr. Marlo Pollard, DO Status:REG [facility] Location: [place] [address] History and Physical Date of Admission: 01/21/25 12/22/24 0708 MR#: [id number] Acct: [id number] Name: MARLO ADAMSON Rep #: [id number] : 1960 64 From: Maria Ines Mckoy MD PCP: Dr. Marlo Pollard, DO Status: REG [facility] Location: [place] [address] HPI - General General Date of Service: [...] states he did have a CT at [facility] sometime in the past we will try to get that record. Patient has never had a colonoscopy, denies any family history of colon cancer. [facility] Medical History (Updated 12/22/24 @ 07:14 by [...] hydrocortisone 2.5 % topical cream 1 applic MA QD-BID PRN hemorrhoids 10/13/24 Rx with perineal [...] Cunningham MD) Father Cancer (more content not included)...[facility]05-28-2025 Consult note Author Yuly Champagne [facility] Note Date/Time December 22, 2024 7:25a [facility] Medical Records Department [address] [place] [address] Pre-Anesthesia Evaluation 12/22/24 0721 MR#: [id number] Acct: [id number] Name: MARLO ADAMSON Rep #:[id number] : 1960 64 From: Yuly Champagne PCP: Dr. Marlo Pollard, DO Status:REG SDC Y Race: C Location: [place] [address] ASA Classification* ASA Classification ASA Classification: 3 [...] Procedure(s): COLONOSCOPY Anesthesia History Anesthesia History - endless steamer tender: Anesthesia History - endless steamer tender Hx Hospitalization Yes: 10/2024 FLU/DIALYSIS 12/22/24 07:09 [...] take am of surgery PONV PONV - endless steamer tender: PONV - endless steamer tender Female No 12/21/24 09:34 HX of Motion [...] 12/22/24 06:33 Respiratory Assessment Respiratory Assessment - endless steamer tender: Respiratory Tract Infection Hx - endless steamer tender Hx Respiratory Tract Infection No 12/22/24 07:09 STOP Sleep Apnea STOP Sleep Apnea - endless steamer tender: STOP Sleep Apnea - endless steamer tender Hx Hypertension Yes: FAIRLY CONTROLLED WITH 12/22/24 [...] Tobacco Use History Tobacco Use History - endless steamer tender: Tobacco Use History - endless steamer tender Tobacco Use Smoking Status Current every day smoker 12/22/24 07:09 Hx Tobacco Use Yes 12/21/24 09:34 Years Smoking Packs Smoked per Day Smoking Cessation Date was within the last 15 years Hx Smoking Cessation Date 12/21/24 09:34 Hx Smoking Cessation Counseling Hematologic Medial History Hematologic Hx - endless steamer tender: Hematologic Medical Hx - card sorter Hx of Blood Transfusion No 12/21/24 09:34 [...] confused, unrespo /Reproduction History /Reproductive History - endless steamer tender: /Reproductive Hx- endless steamer tender Hx Now No 12/22/24 07:09 Gestational Age [...] hydrocortisone 2.5 % topical cream 1 applic MA QD-BID PRN hemorrhoids 10/13/24 12/21/24 Rx with [...] Champagne Cosigner Signature: Date CC: ~ Signed [facility] Work Phone: 1(782) 181-594505-28-2025 History and physical note Author Maria Ines Mckoy [facility] Note Date/Time December 22, 2024 7:17a m [facility] Medical Records Department [address] [place] [address] History & Physical Exam 12/22/24707 MR#: [id number] Acct: [id number] Name: MARLO ADAMSON Rep #:[id number] : 1960 64 From: Maria Ines Mckoy MD PCP: Dr. Marlo Pollard, DO Status:[facility] Location: [place] [address] HPI - General General Date of Service: [...] states he did have a CT at [facility] sometime in the past we will try to get that record. Patient has never had a colonoscopy, denies any family history of colon cancer. [facility] Medical History (Updated 12/22/24 @ 07:14 by [...] hydrocortisone 2.5 % topical cream 1 applic MA QD-BID PRN hemorrhoids 10/13/24 12/21/24 Rx with [...] ACHE Discharge Is Pt Admitted From a Correction, or a Senior Care: No After D/C, Where Do you Plan [...] Cosigner Signature (if applicable): CC: Dr. Marlo Polladr DO; Dr. Maria Ines Mckoy MD~ Signed [facility] Work Phone: 1(325) 460-714905-28-2025 Procedure note [facility] Medical Records Department [address] [place] [address] Colonoscopy Report MR#: [id number] Acct: [id number] Name: MARLO ADAMSON Rep #:[id number] : 1960 64 From: Maria Ines Mckoy [...] pathology results. Procedure Code(s): --- Professional --- 11385, PT, Colonoscopy, flexible; with removal of tumor(s), polyp(s), or other lesion(s) by snare technique Diagnosis Code(s): --- Professional --- Z12.11, Encounter for screening for malignant neoplasm of colon K64.2, Third degree hemorrhoids D12.2, Benign neoplasm of ascending colon K57.30, Diverticulosis of large intestine without perforation or abscess without bleeding CPT copyright 2021 [employer]. All rights reserved. The codes documented in this report are preliminary and upon house wirer review may be revised to meet current compliance requirements. MD Maria Ines Patiño MD 12/22/2024 8:44:55 AM This report has been signed electronically. Number of Addenda: 0 Note Initiated On: 12/22/2024 8:03 AM 12/22/2444 Date _ Maria Ines Mckoy MD Cosigner Signature: Date (if indicated) CC: Dr. Marlo Pollard, DO; Dr. Maria Ines Mckoy MD ~ Date Dictated: 12/22/24 08 Date Transcribed: Wedger Machine: TR Signed [facility]05-28-2025 Procedure note [facility] Medical Records Department [address] [place] [address] Operative Report - CC Letter MR#: [id number] Acct: [id number] Name: MARLO ADAMSON Rep #:[id number] : 1960 64 From: Maria Ines Mckoy MD PCP: Dr. Marlo Pollard DO Status:REG [facility] 12/22/2024 Marlo Latrice [address] [place] [address] [place] [address] Re : Colonoscopy procedure for Marlo Adamson [...] ~ Date Dictated: 12/22/24 0803 Date Transcribed: Wedger Machine: TR Signed [facility]05-28-2025 Consult note [facility] Medical Records Department [address] [place] [address] Anesthesia Postop Eval I 12/22/24 0842 MR#: [id number] Acct: [id number] Name: MARLO ADAMSON Rep #:[id number] : 1960 64 From: Joseph Hu PCP: Dr. Marlo Pollard, DO Status:REG SDC Y Race: C Location: [place] [address] Anesthesia: Postop Eval I Current Vital Signs [...] Joseph Roy Signature: Date CC: ~ Signed [facility]05-28-2025 Consult note [facility] Medical Records Department [address] [place] [address] Pre-Anesthesia Evaluation 12/22/24 0721 MR#: [id number] Acct: [id number] Name: MARLO ADAMSON Rep #:[id number] : 1960 64 From: Yuly Champagne PCP: Dr. 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 Hx Hospitalization Yes: 10/2024 FLU/DIALYSIS 12/22/24 07:09 [...] take am of surgery PONV PONV - endless steamer tender: PONV - endless steamer tender Female No 12/21/24 09:34 HX of Motion [...] 12/22/24 06:33 Respiratory Assessment Respiratory Assessment - endless steamer tender: Respiratory Tract Infection Hx - endless steamer tender Hx Respiratory Tract Infection No 12/22/24 07:09 STOP Sleep Apnea STOP Sleep Apnea - endless steamer tender: STOP Sleep Apnea - endless steamer tender Hx Hypertension Yes: FAIRLY CONTROLLED WITH 12/22/24 [...] Tobacco Use History Tobacco Use History - endless steamer tender: Tobacco Use History - endless steamer tender Tobacco Use Smoking Status Current every day smoker 12/22/24 07:09 Hx Tobacco Use Yes 12/21/24 09:34 Years Smoking Packs Smoked per Day Smoking Cessation Date was within the last 15 years Hx Smoking Cessation Date 12/21/24 09:34 Hx Smoking Cessation Counseling Hematologic Medial History Hematologic Hx - 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 Medical Records Department [address] [place] [address] History & Physical Exam 12/22/24707 MR#: [id number] Acct: [id number] Name: MARLO ADAMSON Rep #:[id number] : 1960 64 From: Maria Ines Mckoy MD PCP: Dr. Marlo Pollard, DO Status:[facility] Location: [address] - General General Date of Service: [...] [facility] will try to get that record. Patient has never had a colonoscopy, denies any family history of colon cancer. [facility] Medical History (Updated 12/22/24 @ 07:14 by [...] hydrocortisone 2.5 % topical cream 1 applic MA QD-BID PRN hemorrhoids 10/13/24 12/21/24 Rx with [...] ACHE Discharge Is Pt Admitted From a Correction, or a Senior Care: No After D/C, Where Do you Plan [...] DO; Dr. Maria Ines Mckoy MD~ Signed [facility]05-28-2025 [facility] Medical Records Department [address] [place] [address] History Physical Exam 12/22/24 0708 MR#: [id number] Acct: [id number] Name: MARLO ADAMSON Rep #: [id number] : 1960 64 From: Maria Ines Mckoy MD PCP: Dr. Marlo Pollard DO Status:REG [facility] Location: [place] [address] HPI - General General Date of Service: [...] states he did have a CT at [facility] sometime in the past we will try to get that record. Patient has never had a colonoscopy, denies any family history of colon cancer. [facility] Medical History (Updated 12/22/24 @ 07:14 by [...] hydrocortisone 2.5 % topical cream 1 applic MA QD-BID PRN hemorrhoi ds 10/13/24 12/21/24 Rx [...] of cardiac catheterization Hist (more content not included)...[facility]25 Discharge summary Author Himanshu Almaguer [facility] Note Date/Time November 02, 2024 11:3 2am [facility] Medical Records Department [address] [place] [address] Discharge Summary 11/02/24 1124 MR#: [id number] Acct: [id number] Name: MARLO ADAMSON Rep #:[id number] : 1960 64 From: Himanshu Almaguer DO PCP: Dr. Marlo Pollard DO Status:ADM IN Location: [place] [address] Providers Date of Admission: 10/31/24 Primary Care [...] Pt had issue with dialysis line today. [place] that the line clotted off due to [...] cream with perineal applicator (Proctozone-HC) 1 applic MA QD-BID PRN hemorrhoids #30 grams 10/13/24 oxycodone [...] 10/31/24 17:11 RMA (Rec: 10/31/24 17:11 RMA [id number]) Nutrition Malnutrition Evidence of Yes Malnutrition Exists [...] 73.4 H, Lymph % (Auto) 12.6 L, [place] % (Auto) 9.8, Eos % (Auto) 1.7, [...] % cream with perineal applicator 1 applic MA QD-BID PRN (Reason: hemorrhoids) Qty: 30 0RF [...] Self Care Charges/Coding Visit Charges Inpatient E&M: 67839 Disch Hosp >30min 11/02/24 1132 <Electronically signed by Himanshu Almaguer DO> Cosigner Signature (if applicable): CC: Dr. Himanshu Almaguer DO; Dr. Marlo Pollard DO~ Signed [facility] Work Phone: 1(675) 765-264504-08-2025 Progress note Author Himanshu Almaguer [facility] Note Date/Time November 02, 2024 11:2 4am [facility] Medical Records Department [address] [facility] [place] [address] Progress Note - Hospitalist 11/02/24 0711 MR#: [id number] Acct: [id number] Name: JUAN DIEGOMARLO Rodrigo Rep #:[id number] : 1960 64 From: Himanshu Almaguer DO PCP: Dr. Marlo Latrice, DO Status:ADM IN Location: [place] [id number] Reason for Visit Reason for Visit: Diagnoses [...] 10/31/24 17:11 RMA (Rec: 10/31/24 17:11 RMA [id number]) Nutrition Malnutrition Evidence of Yes Malnutrition Exists [...] Pt had issue with dialysis line today. [place] that the line clotted off due to no heparinization. No need for fistulagram at this time. DW Dr. Shirley who is going to try to get him heparin for home dialysis. He may also try to get him a fistulagram as outpt. VTE prophylaxis: SQ heparin. 11/02/24 1124 <Electronically signed by Himanshu Almaguer DO> Cosigner Signature (if applicable): CC: ~ Signed [facility] Work Phone: 1(797) 767-392704-08-2025 Consult note Author Maranda Bustamante [facility] Note Date/Time November 02, 2024 11:0 0am [facility] Medical Records Department [address] [place] [address] Consultation - Nephrology 11/01/24 1205 MR#: [id number] Acct: [id number] Name: MARLO ADAMSON Rep #:[id number] : 1960 64 From: Maranda mcmahan [employer] PCP: Dr. Marlo Pollard, DO Status:ADM IN Location: [place] [id number] Assessment & Plan Assessment/Plan (1) ESRD (end [...] was poor and he has lost weight. [facility] Medical History (Updated 11/01/24 @ 12:07 by [...] hydrocortisone 2.5 % topical cream 1 applic MA QD-BID PRN hemorrhoids 10/13/24 Unknown Rx with [...] 10/31/24 17:11 RMA (Rec: 10/31/24 17:11 RMA [id number]) Nutrition Malnutrition Evidence of Yes Malnutrition Exists [...] 78.8 H, Lymph % (Auto) 11.3 L, [place] % (Auto) 7.5, Eos % (Auto) 1.1, [...] MD> CC: Dr. Marlo Pollard, ~ Signed [facility] Work Phone: 1(192) 929-675504-08-2025 Progress note [facility] Medical Records Department [address] [place] [address] Progress Note - Nephrology 11/02/24 1216 MR#: [id number] Acct: [id number] Name: MARLO ADAMSON Rep #:[id number] : 1960 64 From: Ying alfaro MD PCP: Dr. Marlo Pollard, Status:ADM IN Location: [place] [address]1 Subjective Subjective no new complaints Objective Data [...] 10/31/24 17:11 RMA (Rec: 10/31/24 17:11 RMA [id number]) Nutrition Malnutrition Evidence of Yes Malnutrition Exists [...] 73.4 H, Lymph % (Auto) 12.6 L, [place] % (Auto) 9.8, Eos % (Auto) 1.7, [...] Cosigner Signature (if applicable): CC: ~ Signed [facility]04-08-2025 Discharge summary [facility] Medical Records Department [address] [place] [address] Discharge Summary 11/02/24 1124 MR#: [id number] Acct: [id number] Name: MARLO ADAMSON Rep #:[id number] : 1960 64 From: Himanshu Almaguer DO PCP: Dr. Marlo Pollard DO Status:ADM IN Location: [place] [id number] Providers Date of Admission: 10/31/24 Primary Care [...] Pt had issue with dialysis line today. [place] that the line clotted off due to [...] cream with perineal applicator (Proctozone-HC) 1 applic MA QD-BID PRN hemorrhoids #30 grams 10/13/24 oxycodone [...] 10/31/24 17:11 RMA (Rec: 10/31/24 17:11 RMA [id number]) Nutrition Malnutrition Evidence of Yes Malnutrition Exists [...] 73.4 H, Lymph % (Auto) 12.6 L, [place] % (Auto) 9.8, Eos % (Auto) 1.7, [...] % cream with perineal applicator 1 applic MA QD-BID PRN (Reason: hemorrhoids) Qty: 30 0RF [...] Self Care Charges/Coding Visit Charges Inpatient E&M: 40846 Disch Hosp >30min 11/02/24 1132 Cosigner Signature (if applicable): CC: Dr. Himanshu Almaguer DO; Dr. Marlo Pollard DO~ Signed [facility]04-08-2025 [facility] Medical Records Department [address] [place] [address] Discharge Summary 11/02/24 1124 MR#: [id number] Acct: [id number] Name: MARLO ADAMSON Rep #: [id number] : 1960 64 From: Himanshu Almaguer DO PCP: Dr. Marlo Pollard DO Status:ADM IN Location: [place] [address] Providers Date of Admission: 10/31/24 Primary Care [...] Pt had issue with dialysis line today. [place] that the line clotted off due to [...] cream with perineal applicator (Proctozone-HC) 1 applic MA QD-BID PRN hemorrhoids #30 grams 10/13/24 oxycodone [...] 10/31/24 17:11 RMA (Rec: 10/31/24 17:11 RMA [id number]) Nutrition Malnutrition Evidence of Yes Malnutrition Exists [...] 73.4 H, Lymph % (Auto) 12.6 L, Pitkin % (Auto) 9.8, Eos % (Auto) 1.7, [...] Sputum, Expectorated/Coughed Resp (more content not included)... [facility]04[facility]08[facility]2025 Progress note [facility] Medical Records Department [address] [place] [address] Progress Note - Hospitalist 11/02/24 0711 MR#: [id number] Acct: [id number] Name: MARLO ADAMSON Rep #:[id number] : 1960 64 From: Himanshu Almaguer DO PCP: Dr. Marlo Pollard, DO Status:ADM IN Location: [place] [address] Reason for Visit Reason for Visit: Diagnoses [...] 10/31/24 17:11 RMA (Rec: 10/31/24 17:11 RMA [id number]) Nutrition Malnutrition Evidence of Yes Malnutrition Exists [...] Pt had issue with dialysis line today. [place] that the line clotted off due to no heparinization. No need for fistulagram at this time. DW Dr. Shirley who is going to try to get him heparin for home dialysis. He may also try to get him a fistulagram as outpt. VTE prophylaxis: SQ heparin. 11/02/24 1124 Cosigner Signature (if applicable): CC: ~ Signed [facility]04-08-2025 Consult note [facility] Medical Records Department [address] [place] [address] Consultation - Nephrology 11/01/24 1205 MR#: [id number] Acct: [id number] Name: MARLO ADAMSON Rep #:[id number] : 1960 64 From: Maranda mcmahan JEWELRY BEARING MAKER-C PCP: Dr. Marlo Pollard, DO Status:ADM IN Location[place] [facility] NZ820-0 Assessment & Plan Assessment/Plan (1) ESRD (end [...] was poor and he has lost weight. [facility] Medical History (Updated 11/01/24 @ 12:07 by [...] hydrocortisone 2.5 % topical cream 1 applic MA QD-BID PRN hemorrhoids 10/13/24 Unknown Rx with [...] 10/31/24 17:11 RMA (Rec: 10/31/24 17:11 RMA [id number]) Nutrition Malnutrition Evidence of Yes Malnutrition Exists [...] 78.8 H, Lymph % (Auto) 11.3 L, Pitkin % (Auto) 7.5, Eos % (Auto) 1.1, [...] 1100 CC: Dr. Marlo Pollard, DO~ Signed [facility]04-07-2025 Consult note Author Fritz Moya [facility] Note Date/Time November 01, 2024 3:19 pm [facility] Medical Records Department [address] [facility] [place] [address] Pharmacokinetic/Renal -Consult 11/01/24 1310 MR#: [id number] Acct: [id number] Name: MARLO ADAMSON Rodrigo Rep #:[id number] : 1960 64 From: Fritz Moya PCP: Dr. Marlo Pollard, DO Status:ADM IN Y Location: [place] [address] Consult Antibiotic Management Pharmacy has been consulted [...] Date Himanshu Almaguer DO CC: ~ Signed [facility] Work Phone: 1(894) 912-168404-07-2025 Progress note Author Himanshu Almaguer [facility] Note Date/Time November 01, 2024 1:51 pm [facility] Medical Records Department [address] [place] [address] Progress Note - Hospitalist 11/01/24 0750 MR#: [id number] Acct: [id number] Name: MARLO ADAMSON Rep #:[id number] : 1960 64 From: Himanshu Almaguer DO PCP: Dr. Marlo Pollard, DO Status:ADM IN [facility] Reason for Visit Reason for Visit: Diagnoses [...] 10/31/24 17:11 RMA (Rec: 10/31/24 17:11 RMA [id number]) Nutrition Malnutrition Evidence of Yes Malnutrition Exists [...] 84.6 H, Lymph % (Auto) 6.7 L, Pitkin % (Auto) 7.3, Eos % (Auto) 0.1, [...] 78.8 H, Lymph % (Auto) 11.3 L, Pitkin % (Auto) 7.5, Eos % (Auto) 1.1, [...] Pt had issue with dialysis line today. [place] that the line clotted off due to no heparinization. No need for fistulagram at this time. VTE prophylaxis: SQ heparin. Charges/Coding Visit Charges Inpatient E&M: 53791 Subs Hosp L2 11/01/24 1359 <Electronically signed by Himanshu Almaguer DO> Cosigner Signature (if applicable): CC: ~ Signed [facility] Work Phone: 1(938) 332-838404-07-2025 Consult note [facility] Medical Records Department [address] [place] [address] Pharmacokinetic/Renal -Consult 11/01/24 1310 MR#: [id number] Acct: [id number] Name: MARLO ADAMSON Rep #:[id number] : 1960 64 From: Fritz Moya PCP: Dr. Marlo Pollard, DO Status:ADM IN Y Location: [place] [address]1 Consult Antibiotic Management Pharmacy has been consulted [...] Date Himanshu Almaguer DO CC: ~ Signed [facility]04-07-2025 Progress note [facility] Medical Records Department [address] [facility] [place] [address] Progress Note - Hospitalist 11/01/24 0750 MR#: [id number] Acct: [id number] Name: MARLO ADAMSON Rodrigo Rep #:[id number] : 1960 64 From: Himanshu Almaguer DO PCP: Dr. Marlo Pollard, DO Status:ADM IN Location: [place] [address]1 Reason for Visit Reason for Visit: Diagnoses [...] 10/31/24 17:11 RMA (Rec: 10/31/24 17:11 RMA [id number]) Nutrition Malnutrition Evidence of Yes Malnutrition Exists [...] 84.6 H, Lymph % (Auto) 6.7 L, Pitkin % (Auto) 7.3, Eos % (Auto) 0.1, [...] 78.8 H, Lymph % (Auto) 11.3 L, Pitkin % (Auto) 7.5, Eos % (Auto) 1.1, [...] Pt had issue with dialysis line today. [place] that the line clotted off due to no heparinization. No need for fistulagram at this time. VTE prophylaxis: SQ heparin. Charges/Coding Visit Charges Inpatient E&M: 37573 Subs Hosp L2 11/01/24 1351 Cosigner Signature (if applicable): CC: ~ Signed [facility]04-06-2025 Progress note Author Chirag Lucero [facility] Note Date/Time October 31, 2024 7:03 pm [facility] Medical Records Department [address] [place] [address] Progress Note - Hospitalist 10/31/24 1902 MR#: [id number] Acct: [id number] Name: MARLO ADAMSON Rep #:[id number] : 1960 64 From: Chirag Dixon PCP: Dr. Marlo Pollard, DO Status:ADM IN Location: [place] [address] Hospitalist Note 64-year-old gentleman was admitted with [...] nasal screen. Denies prior history of MRSA. Mission Analyst consulted. On 3 L of oxygen. Did not have dialysis nurse today but I do not see an urgent need of dialysis today can be dialyzed early in the morning. Discussed with Dr. Shirley Visit Charges Inpatient E&M: 51594 Subs Hosp L1 10/31/24 1228 <Electronically signed [...] Cosigner Signature (if applicable): cc: ~* Signed [facility] Work Phone: 1([phone]) 885-231404-06-2025 Progress note [facility] Medical Records Department [address] [place] [address] Progress Note - Hospitalist 10/31/241901 MR#: [id number] Acct: [id number] Name: MARLO ADAMSON Rep #:[id number] : 1960 64 From: Chirag Dixon PCP: Dr. Marlo Pollard, DO Status:ADM IN Location: [place] [address] Hospitalist Note 64-year-old gentleman was admitted with [...] nasal screen. Denies prior history of MRSA. Mission Analyst consulted. On 3 L of oxygen. Did not have dialysis nurse today but I do not see an urgent need of dialysis today can be dialyzed early in the morning. Discussed with Dr. Shirley Visit Charges Inpatient E&M: 01985 Subs Hosp L1 10/31/24 1228 Cosigner Signature [...] Cosigner Signature (if applicable): cc: ~* Signed [facility]04-06-2025 Progress note Author Ying Shirley [facility] Note Date/Time October 31, 2024 11:5 6am [facility] Medical Records Department [address] [place] [address] Progress Note 10/31/24 1148 MR#: [id number] Acct: [id number] Name: MARLO ADAMSON Rep #:[id number] : 1960 64 From: Ying alfaro MD PCP: Dr. Marlo Pollard, DO Status:ADM IN Location: [place] AU974-7 Progress Note patient is known to me. [...] Signature (if applicable): Date cc: ~* Signed [facility] Work Phone: 1(246) 571-692604-06-2025 Progress note [facility] Medical Records Department [address] [place] [address] Progress Note 10/31/24 1148 MR#: [id number] Acct: [id number] Name: MARLO ADAMSON Rep #:[id number] : 1960 64 From: Ying alfaro MD PCP: Dr. Marlo Pollard, DO Status:ADM IN Location: [place] [address] Progress Note patient is known to me. [...] Signature (if applicable): Date cc: ~* Signed [facility]04-06-2025 History and physical note Author Elidia Cunningham [facility] Note Date/Time October 31, 2024 4:10 am [facility] Medical Records Department [address] [place] [address] H&P Exam - Hospitalist 10/31/24 0347 MR#: [id number] Acct: [id number] Name: MARLO ADAMSON Rep #:[id number] : 1960 64 From: Elidia Cunningham MD PCP: Dr. Marlo Pollard, DO Status:ADM IN [facility] - General General Date of Admission: 10/31/24 Date of Service: 10/31/24 Chief Complaint: Cough, congestion, dyspnea, recent outpatient abx. HPI Narrative The patient is a 64-year-old male with past medical history M w/ PMHx: PCKD w/ ESRD (T-F), CAD s/p PCI, HTN, HLD, GERD, Tobacco use, Hx VTE (DVT) who presents to the [facility] ED on 10/31/24 with congestion, fatigue, malaise, [...] the ED patient ministered IV Zosyn therapy. [facility] Medical History (Updated 10/31/24 @ 04:07 by [...] hydrocortisone 2.5 % topical cream 1 applic MA QD-BID PRN hemorrhoids 10/13/24 Unknown Rx with [...] (Auto) 85.8 H, Lymph % (Auto) 5.3 L,Pitkin % (Auto) 7.1, Eos % (Auto) 0.1, [...] pleural effusion. Mild elevation right [facility] Assessment & Plan Assessment/Plan (1) Hypoxemia: (2) Pneumonia: (3) Failure of outpatient treatment: PLAN: Plan The patient is a 64-year-old male with past medical history M w/ PMHx: PCKD w/ ESRD, CAD s/p PCI, HTN, HLD, GERD, Tobacco use, Hx VTE (DVT) who presents to [facility] ED on 10/31/24 with congestion, fatigue, malaise, [...] Patient does not have healthcare power of securities attorney or living will in place but he notes that he would want his ex- Nabila Triplett to be his medical decision-maker if necessary. Discussed CODE status at length including difference between FULL code, DNR-CCA and DNR-CC status. Following discussions about the differences in these status, requested Full Code status. Advanced CarePlanning Face to Face Time: 16 minutes. Charges/Coding Visit Charges Inpatient E&M: 53768 Init Hosp L3 Procedures Hospitalists Procedures: 62291 Advncd Care Plan 30 Min 10/31/24 0410 <Electronically signed by Elidia Cunningham MD> Cosigner Signature (if applicable): CC: Dr. Elidia Cunningham MD; Dr. Marlo Pollard DO~ Signed [facility] Work Phone: 1(546) 112-526704-06-2025 Discharge summary Author Jimy Jarquin [facility] Note Date/Time October 31, 2024 3:46 am [facility] Medical Records Department [address] [place] [address] Emergency Department Summary 10/31/24 MR#: [id number] Acct: [id number] Name: MARLO ADAMSON Rep #:[id number] : 1960 64 From: Jimy Jarquin MD [...] for this and has no other complaints. [facility] Medical History Wears dentures Alcohol [...] hydrocortisone 2.5 % topical cream 1 applic MA QD-BID PRN hemorrhoids 10/13/24 Unknown Rx with [...] 85.8 H Lymph % (Auto) 5.3 L Pitkin % (Auto) 7.1 Eos % (Auto) 0.1 [...] pleural effusion. Mild elevation right Reading Location: [facility] Management Discussion w/another healthcare provider: Hospitalist Discharge [...] % cream with perineal applicator 1 applic MA QD-BID PRN (Reason: hemorrhoids) Qty: 30 0RF [...] DO [Primary Care Provider] - Print Language: Singaporean Disposition Disposition: Acute Care Hospital [facility] What to do if you have Problems For any increased pain, shortness of breath, bleeding, nausea or vomiting, chestpain, or any unexpected problems, contact your Primary Care Provider. Call [facility] ([phone]) or report to the closest Emergency Room. Call 911 if necessary. 10/31/24 0346 <Electronically signed by Jimy Jarquin MD> Cosigner Signature (if applicable): CC: Dr. Marlo Pollard DO ~ Signed [facility] Work Phone: 1(310) 400-640504-06-2025 History and physical note [facility] Medical Records Department [address] [place] [address] H&P Exam - Hospitalist 10/31/24 0347 MR#: [id number] Acct: [id number] Name: MARLO ADAMSON Rep #:[id number] : 1960 64 From: Elidia Cunningham MD PCP: Dr. Marlo Pollard, DO Status:ADM IN Location: [facility] NA160-0 HPI - General General Date of Admission: 10/31/24 Date of Service: 10/31/24 Chief Complaint: Cough, congestion, dyspnea, recent outpatient abx. HPI Narrative The patient is a 64-year-old male with past medical history M w/ PMHx: PCKD w/ ESRD (T-F), CAD s/p PCI, HTN, HLD, GERD, Tobacco use, Hx VTE (DVT) who presents to the [facility] ED on 10/31/24 with congestion, fatigue, malaise, [...] the ED patient ministered IV Zosyn therapy. [facility] Medical History (Updated 10/31/24 @ 04:07 by [...] hydrocortisone 2.5 % topical cream 1 applic MA QD-BID PRN hemorrhoids 10/13/24 Unknown Rx with [...] (Auto) 85.8 H, Lymph % (Auto) 5.3 L,Pitkin % (Auto) 7.1, Eos % (Auto) 0.1, [...] use, Hx VTE (DVT) who presents to [facility] ED on 10/31/24 with congestion, fatigue, malaise, [...] Patient does not have healthcare power of securities attorney or living will in place but henotes that he would want his ex- Nabila Triplett to be his medical decision-maker if necessary. Discussed CODE status at length including difference between FULL code, DNR-CCA and DNR-CC status. Following discussions about the differences in these status, requested Full Code status. Advanced CarePlanning Face to Face Time: 16 minutes. Charges/Coding Visit Charges Inpatient E&M: 85816 Init Hosp L3 Procedures Hospitalists Procedures: 72707 Advncd Care Plan 30 Min 10/31/24 0410 Cosigner Signature (if applicable): CC: Dr. Elidia Cunningham MD; Dr. Marlo Pollard DO~ Signed [facility]04-06-2025 Discharge summary [facility] Medical Records Department [address] [place] [address] Emergency Department Summary 10/31/24 MR#: [id number] Acct: [id number] Name: MARLO ADAMSON Rep #:[id number] : 1960 64 From: Jimy Jarquin MD [...] for this and has no other complaints. [facility] Medical History Wears dentures Alcohol [...] hydrocortisone 2.5 % topical cream 1 applic MA QD-BID PRN hemorrhoids 10/13/24 Unknown Rx with [...] 85.8 H Lymph % (Auto) 5.3 L Pitkin % (Auto) 7.1 Eos % (Auto) 0.1 [...] pleural effusion. Mild elevation right Reading Location: [facility] Management Discussion w/another healthcare provider: Hospitalist Discharge [...] % cream with perineal applicator 1 applic MA QD-BID PRN (Reason: hemorrhoids) Qty: 30 0RF [...] DO [Primary Care Provider] - Print Language: Singaporean Disposition Disposition: Acute Care Hospital [facility] What to do if you have Problems For any increased pain, shortness of breath, bleeding, nausea or vomiting, chestpain, or any unexpected problems, contact your Primary Care Provider. Call [facility] ([phone]) or report tothe closest Emergency Room. Call 911 if necessary. 10/31/24 7686 Cosigner Signature (if applicable): CC: Dr. Marlo Pollard DO ~ Signed [facility]04-06-2025 Radiology Diagnostic study note [facility] Imaging Services [address] [place] [address] Chest PA and Lateral MR#: [id number] Acct: [id number] Name: MARLO ADAMSON Rep #: [id number] : 1960 M 64 From: And bobby Graf DO PCP: Dr. Marlo Pollard DO Status: PRE ER Study:Chest PA and Lateral Date of Exam: 10/31/24 Exam# [id number] Ordering Dr: Juliane Jarquin MD PROCEDURE: PA [...] Jarquin MD; Dr. Marlo Pollard DO ~ Wedger Machine: Signed [facility]03-19-2025 Evaluation note* Diagnosis Onset Date Resolution Status Admit Date Anal fistula acute October 13, 2024 1:52pm Hemorrhoids, internal, with bleeding acute October 13, 2024 1:52pm Screening for colon cancer acute October 13, 2024 1:52pm Failure of outpatient treatment acut e October 31, 2024 3:49am Hypoxemia acute October 31 3:49am Pneumonia acute October 31 3:49am [facility] Work Phone: 1(286) 461-427003-19-2025 Evaluation note* Diagnosis Onset Date Resolution Status [...] 31 3:49am Pneumonia acute October 31 3:49am [facility] Work Phone: 1(403) 606-621003-19-2025 Evaluation note* Diagnosis Onset Date Resolution Status [...] colon cancer resolved December 22, 2024 6:11am [facility] Work Phone: 1(561) 948-826411-09-2021 NoteHNO ID: [id number] Author: Casey Castañeda Population Health Navigator Service: [...] future healthcare decisions with a power of securities attorney, living will, or advance directives? No. Please bring a copy to your next appointment or email to Referrals: N/A Message Sent to Practice: NO Navigation Signature: Casey Castañeda Population Health Navigator June 05, 2021 2:[address] [facility]11-09-2021 NotePatient Outreach (NETNAV) MARLO ADAMSON ([id number]) 1960 M Date Time Provider Department 06/05/21 [...] future healthcare decisions with a power of securities attorney, living will, or advance directives? No. [...] and abscess of unspecified site [L03*01/29/2007 12/15/2018 ME NOS EPISODE CARE UNSPEC [I21.9] 02/03/2007 Hematuria [...] by JOSE A POPULATION HEALTH NAVIGATORCASEY on 06/05/21[facility]08-31-2021 NoteHNO ID: [id number] Author: Mary Casillas MA Service: ? Author Type: Spray Gun Striper Type: Progress Notes Filed: 03/27/2021 1:05 PM [...] future healthcare decisions with a power of securities attorney, living will, or advance directives? Referrals: N/A Message Sent to Practice: NO Navigation Signature: Mary Casillas MA March 27, 2021 1:[address] [facility]08-31-2021 NotePatient Outreach (AMBCMG) FORCE,MARLO Wallace ([id number]) 1960 M Date Time Provider Department 03/27/21 [...] future healthcare decisions with a power of securities attorney, living will, or advance directives? Referrals: N/A Message Sent to Practice: NO Navigation Signature: Mary Casillas MA March 27, 2021 1:01 PM Allergies As of Date: 03/27/2021 Noted Allergy Reaction LIPITOR (ATORVASTATIN CALCIUM) 05/15/2010 14 - Other: See Comments Comments: myalgia Date Reviewed: 07/04/2020 Reviewed by: Lexus Mcneil Ma - Fully Assessed Reason for Visit: Population Health Navigation Outreach [8460] Cmt: ACO DEBORAH PCSA Prescriptions as of [...] and abscess of unspecified site [L03*01/29/2007 12/15/2018 ME NOS EPISODE CARE UNSPEC [I21.9] 02/03/2007 Hematuria [...] 15-29*06/17/2016 Encounter Status:Closed by MARY CASILLAS on 03/27/21[facility]07-06-2021 NoteHNO ID: [id number] Author: Mariah Johsnon Ma Service: ? Author Type: ? Type: Progress Notes Filed: 01/30/2021 3:08 PM Note Text: POPULATION HEALTH NAVIGATION OUTREACH Action/FYI Left message for patient to call back regarding scheduling/care gaps. Letter Sent. Letter mailed 01/30/21 - Navigation Signature: Mariah Johnson Ma January 30, 2021 2:[address] [facility]06-29-2021 NotePatient Outreach (NETNAV) MARLO ADAMSON ([id number]) 1960 M Date Time Provider Department 01/23/21 [...] future healthcare decisions with a power of securities attorney, living will, or advance directives? No. [...] and abscess of unspecified site [L03*01/29/2007 12/15/2018 ME NOS EPISODE CARE UNSPEC [I21.9] 02/03/2007 Hematuria [...] Encounter Status:Closed by MARIAH JOHNSON MA on 01/30/21[facility]06-29-2021 NoteHNO ID: [id number] Author: Mariah Johnson Ma Service: ? Author [...] future healthcare decisions with a power of securities attorney, living will, or advance directives? No. Are you interested in a follow-up phone call or visit with a doctor for more information about planning for future health care decisions? No Referrals: N/A Message Sent to Practice: NO Navigation Signature: Mariah Johnson Ma January 23, 2021 10:36 [facility]03-24-2021 NoteHNO ID: [id number] Author: Radha Turk Service: ? Author Type: ? Type: Progress Notes Filed: 10/18/2020 4:45 PM Note Text: Contacted patient he declined, mailed colonoscopy letter. -Radha TurkPar[facility]03-23-2021 NoteHNO ID: [id number] Author: Dave Viera (Rn) NISHA Martin Service: ? Author Type: Registered Nurse Type: Progress Notes Filed: 10/18/2020 4:45 PM Note Text: Pt overdue for screening colonoscopy. Pt needs office visit prior due to medical history. Please call pt and schedule with JEWELRY BEARING MAKER or PA. Dave Martin RN[facility]03-23-2021 NotePatient Outreach (FAMPWS) MARLO ADAMSON ([id number]) 1960 M Date Time Provider Department 10/17/20 DAVE MARTIN (RN)JEFFERSONWS During your visit today, we recorded the following information about you: Dave Martin RN, RN 10/18/2020 4:45 PM Signed Pt overdue for screening colonoscopy. Pt needs office visit prior due to medical history. Please call pt and schedule with JEWELRY BEARING MAKER or PA. NISHA Mesa [facility] 10/18/2020 4:45 PM Signed Contacted patient he declined, mailed colonoscopy letter. -Radha Casillas [facility] Allergies As of Date: 10/17/2020 Noted Allergy [...] and abscess of unspecified site [L03*01/29/2007 12/15/2018 ME NOS EPISODE CARE UNSPEC [I21.9] 02/03/2007 Hematuria [...] 15-29*06/17/2016 Encounter Status:Closed by RADHA RENTERIA on 10/18/20[facility]12-08-2020 History of Present illness Narrative* Fransisca Vicente [...] 04, 2020 5:39 PM [facility] Consult note Author Joseph Hu [facility] Note Date/Time December 22, 2024 8:43a m [facility] Medical Records Department [address] [place] [address] Anesthesia Postop Eval I 12/22/24841 MR#: [id number] Acct: [id number] Name: MARLO ADAMSON Rep #:[id number] : 1960 64 From: Joseph Hu PCP: Dr. Marlo Pollard, DO Status[facility] Race: C Location: [place] [address] Anesthesia: Postop Eval I Current Vital Signs [...] Joseph Roy Signature: Date CC: ~ Signed [facility] Work Phone: Consult note Author Rosy Daley [facility] Note Date/Time January 21, 2025 2:30 pm [facility] Medical Records Department [address] [place] [address] Anesthesia Postop Eval I 01/21/25 1429 MR#: [id number] Acct: [id number] Name: MARLO ADAMSON Rep #:[id number] : 1960 64 From: Rosy Garcia PCP: Dr. Marlo Pollard, DO Status:REG SD Y Race: C Location: [place] [address] Anesthesia: Postop Eval I Current Vital Signs [...] Rosy Lackey RNA> Date _ Rosy Daley COSMETICIAN APPRENTICE Cosigner Signature: Date CC: ~ Signed [facility] Work Phone: Discharge summary Author Jimy Jarquin [facility] Note Date/Time October 31, 2024 3:46 am [facility] Medical Records Department [address] [place] [address] Emergency Department Summary 10/31/24 MR#: [id number] Acct: [id number] Name: MARLO ADAMSON Rep #:[id number] : 1960 64 From: Jimy Jarquin MD [...] for this and has no other complaints. [facility] Medical History Wears dentures Alcohol [...] hydrocortisone 2.5 % topical cream 1 applic MA QD-BID PRN hemorrhoids 10/13/24 Unknown Rx with [...] 85.8 H Lymph % (Auto) 5.3 L Pitkin % (Auto) 7.1 Eos % (Auto) 0.1 [...] pleural effusion. Mild elevation right Reading [facility] Management Discussion w/another healthcare provider: Hospitalist Discharge [...] % cream with perineal applicator 1 applic MA QD-BID PRN (Reason: hemorrhoids) Qty: 30 0RF [...] DO [Primary Care Provider] - Print Language: Singaporean Disposition Disposition: Acute Care Hospital [facility] What to do if you have Problems For any increased pain, shortness of breath, bleeding, nausea or vomiting, chestpain, or any unexpected problems, contact your Primary Care Provider. Call [facility] ([phone]) or report to the closest Emergency Room. Call 911 if necessary. 10/31/24 0346 <Electronically signed by Jimy Jarquin MD> Cosigner Signature (if applicable): CC: Dr. Marlo Pollard DO ~ Signed [facility] Work Phone: Evaluation note* Diagnosis Onset Date Resolution Status Chronic renal failure, stage 4 (severe) chronic [facility] Work Phone: Evaluation noteNo assessment information available [facility] Work Phone: Evaluation note* Diagnosis Suspected 2019 novel coronavirus infection [facility] Author Elidia Cunningham [facility] Note Date/Time October 31, 2024 4:10 am [facility] Medical Records Department [address] [place] [address] H&P Exam - Hospitalist 10/31/247 MR#: [id number] Acct: [id number] Name: MARLO ADAMSON Rodrigo Rep #:[id number] : 1960 64 From: Elidia Cunningham MD PCP: Dr. Marlo Pollard DO Status:ADM IN Location: [facility] [id number] HPI - General General Date of Admission: 10/31/24 Date of Service: 10/31/24 Chief Complaint: Cough, congestion, dyspnea, recent outpatient abx. HPI Narrative The patient is a 64-year-old male with past medical history M w/ PMHx: PCKD w/ ESRD (T-F), CAD s/p PCI, HTN, HLD, GERD, Tobacco use, Hx VTE (DVT) who presents to the [facility] ED on 10/31/24 with congestion, fatigue, malaise, [...] the ED patient ministered IV Zosyn therapy. [facility] Medical History (Updated 10/31/24 @ 04:07 by [...] hydrocortisone 2.5 % topical cream 1 applic MA QD-BID PRN hemorrhoids 10/13/24 Unknown Rx with [...] (Auto) 85.8 H, Lymph % (Auto) 5.3 L,[place]itkin % (Auto) 7.1, Eos % (Auto) 0.1, [...] use, Hx VTE (DVT) who presents to [facility] ED on 10/31/24 with congestion, fatigue, malaise, [...] Patient does not have healthcare power of securities attorney or living will in place but he notes that he would want his ex- Nabila Triplett to be his medical decision-maker if necessary. Discussed CODE status at length including difference between FULL code, DNR-CCA and DNR-CC status. Following discussions about the differences in these status, requested Full Code status. [facility] Care[facility]anning Face to Face Time: 16 minutes. Charges/Coding Visit Charges Inpatient E&M: 50401 Init Hosp L3 Procedures Hospitalists Procedures: 47700 Advncd Care Plan 30 Min 10/31/24 0410 <Electronically signed by Elidia Cunningham MD> Cosigner Signature (if applicable): CC: Dr. Elidia Cunningham MD; Dr. Marlo Pollard DO~ Signed [facility] Work Phone: Progress note Author Ying Shirley [facility] Note Date/Time November 02, 2024 12:1 9pm [facility] Medical Records Department [address] [place] [id number] Progress Note - Nephrology 11/02/24 1216 MR#: [id number] Acct: [id number] Name: MARLO ADAMSON Rep #:[id number] : 1960 64 From: Ying alfaro MD PCP: Dr. Marlo Pollard, DO Status:ADM IN Location: [place] [address] Subjective Subjective no new complaints Objective Data [...] 10/31/24 17:11 RMA (Rec: 10/31/24 17:11 RMA [id number]) Nutrition Malnutrition Evidence of Yes Malnutrition Exists [...] 73.4 H, Lymph % (Auto) 12.6 L, Pitkin % (Auto) 9.8, Eos % (Auto) 1.7, [...] Cosigner Signature (if applicable): CC: ~ Signed [facility] Work Phone: Reason for referral (narrative)No reason for referral information availableWMercy [facility] Work Phone: Summary Purpose Family History No [...] Yes June 06, 021 2:53pm Power of Car Pilot Yes June 06, 2021 2:53pm Advance Directive Response Recorded Date/ Time Living Will Yes June 06, 021 1:53pm Power of Car Pilot Yes June 06, 2021 1:53pm Advance Directive Response Recorded Date/ Time Living Will No October 31, 2024 2:04am Do you have a Healthcare Power of Car Pilot? No October 31, 2024 2:04am Advance Directive Response Recorded Date/ Time Living Will No October 31, 2024 4:07am Do you have a Healthcare Power of Car Pilot? No October 31, 2024 4:07am Advance Directive Response Recorded Date/ Time Living Will No October 31, 2024 4:07am Do you have a Healthcare Power of Car Pilot? No October 31, 2024 4:07am Do you have a Healthcare Power of Car Pilot? Yes December 21, 2024 9:34am Advance Directive Response Recorded Date/ Time Living Will No October 31, 2024 4:07am Do you have a Healthcare Power of Car Pilot? No October 31, 2024 4:07am Do you have a Healthcare Power of Car Pilot? No January 07, 2025 9:36am Do you have a Healthcare Power of Car Pilot? Yes December 21, 2024 9:34am Chief Complaint [...] 2024 1:5 2pm Hemorrhoids, internal, with bleeding [facility] 2024 1:52pm Screening for colon cancer October [...] 2024 1:5 2pm Hemorrhoids, internal, with bleeding [facility] 2024 1:52pm Screening for colon cancer October 13, 2 025 1:52pm ESRD (end stage renal disease) October 3:49am Failure of outpatient treatment October 3:49am Hypoxemia October 31, 2024 3:49 am Pneumonia October 31, 2024 3:49 am Reason for Visit Admit Date Anal fistula October 13, 2024 1:5 2pm Hemorrhoids, internal, with bleeding [facility] 2024 1:52pm Screening for colon cancer October [...] section and content) DATE CREATED AUTHOR 09/13/2021 [facility] DATE CREATED AUTHOR AUTHOR'S ORGANIZ ATION 01/24/2025 [facility] Goals (unrecognized section and content) Goals may [...] MD Attending Provider, Referri ng Provider Active Room Designer Relationship Specialty Start Date End Date To [...] 2024 End: November 02, 2024 Dr. Chirag Luceor MD Other Provider Active Sta rt: October [...] 2024 End: December 22, 2024 Dr. Marlo oPllard DO Referring Provider Active Start: December 22, [...] Status: Inactive Member Role/Relationship Status Dates Dr. Malro Pollard DO Primary Care Provider Active Start: [...] or prosecute any alcohol or drug abuse patient.[facility] FOR RECORDS PERTAINING TO PATIENTS WHO ARE [...] BE BASED ON THE PRIMARY CLINICAL RECORDS. [facility] provides no warranty or guarantee of the accuracy or completeness of information in this document.
--- NOTE | 2025-01-30 04:35 | ED.RN ---
per patient request this nurse notified friend Nabila of POC.
--- NOTE | 2025-01-30 04:39 | PCM.HP.STD ---
[facility] - General General Date of Service: 01/30/25 HPI Narrative MARLO ADAMSON, is a 64 M who presents to [facility] on direction from me after calling the physician on-call line stating that he had concerns that he had disrupted something from his previous surgery. He is status post excisional hemorrhoidectomy with Dr. Mckoy on 01/21/2025. He shares that 3 days ago he began vomiting and became concerned that he had ripped something. He states that 2 days ago he vomited without any further concerns but then yesterday vomited and eliminated a sensation of pressure as well as some of his operative dressing and thereafter began to feel streaming blood. He notes that he has been constipated since surgery and attempted to call into the surgery office to notify them of this concern and was advised to take Dulcolax. He reports that he followed through with this direction but it did not yield a bowel movement. Emergency department emergency medicine attempted to visualize the bleeding and apply a compressive dressing but patient continued to experience streaming blood so I was contacted for further evaluation. Patient's laboratories were drawn and hemoglobin is presently at 14.4 and coags are within normal limits. BUN is modestly elevated but not unexpected given patient's ESRD status. Patient dialyzes at home and administers heparin during each session. [facility] Medical History (Updated 01/30/25 @ 04:[address] Herson [place], ) History of hiatal hernia Wears glasses History of steroid therapy Arthritis Low iron Back pain Syncope Difficulty swallowing Heartburn Smoker Shortness of breath on exertion Leg cramps History of pain when walking History of edema MRSA (methicillin resistant staph aureus) culture positive ESRD (end stage renal disease) ESRD on hemodialysis (~10/31/24) Anal fistula Hemorrhoids, internal, with bleeding Wears dentures Marijuana use Polycystic renal disease DVT (deep venous thrombosis) High cholesterol History of echocardiogram Cardiology follow-up encounter Hemorrhoids, internal Myocardial infarction HTN (hypertension) Osteoarthritis CAD (coronary artery disease) Home Medications ?Medication ?Instructions ?Recorded ?Last Taken ?Type aspirin 81 mg tablet,delayed 81 mg PO DAILY 05/29/21 01/21/25 History release Held on 01/30/25. Instructions: surgery cholecalciferol (vitamin D3) 125 125 mcg PO DAILY 05/29/21 01/20/25 History mcg (5,000 unit) capsule metoprolol tartrate 25 mg tablet 25 mg PO BID 05/29/21 01/21/25 History pravastatin 40 mg tablet 40 mg PO QHS 05/29/21 01/20/25 History Hydrocortisone 2.5%/lidocaine 5% #30 ea 10/13/24 Unknown Rx suppository (cmpd) (hydrocortisone 2.5%/lidocaine 5% suppository (compound)) hydrocortisone 2.5 % topical cream 1 applic WA QD-BID PRN hemorrhoids 10/13/24 01/20/25 Rx with perineal applicator #30 grams (Proctozone-HC) oxycodone 10 mg tablet 10 mg PO TID PRN pain 10/13/24 01/21/25 04:00 History vitamin B complex-vitamin C-folic 1 tab PO QDAY 10/13/24 01/20/25 History acid 0.8 mg tablet (Renal-Svetlana) calcitriol 0.25 mcg capsule 0.25 mcg PO DAILY 10/31/24 01/20/25 History lidocaine-prilocaine 2.5 %-2.5 % 1 applic topical DAILY PRN SKIN 10/31/24 01/20/25 History topical cream ondansetron 4 mg disintegrating 4 mg PO Q4H PRN PRN nausea and 12/21/24 01/20/25 History tablet vomiting Allergy/AdvReac Type Severity Reaction Status Date / Time atorvastatin (From Lipitor) AdvReac MUSCLE ACHE Verified 01/07/25 09:18 Family History Father Cancer abdominal tumor--unsure type Brother Heart disease Sister Brain mass Mother Brain aneurysm Surgical History (Updated 01/30/25 @ 04:[address] Fili Nj MD) S/P hemorrhoidectomy Hx of colonoscopy with polypectomy History of arteriovenostomy for renal dialysis (~05/2021) Hx of left knee surgery History of esophagogastroduodenoscopy (EGD) Hx of cystoscopy History of cardiac catheterization History of coronary artery bypass graft History of heart artery stent Social History household members: none Smoking Status: Current every day smoker tobacco type: cigarettes quit status: considering quitting alcohol intake: former substance use type: does not use Vital Signs Vital Signs Vital Signs: 01/30/25 02:13 01/30/25 03:00 01/30/25 03:30 Temperature 98.6 F 98.5 F Temperature Source Oral Oral Pulse Rate 84 84 81 Respiratory Rate 20 H 18 16 Blood Pressure 117/96 H 121/77 H 132/98 H Blood Pressure Mean 103 91 109 Blood Pressure Source Monitor Blood Pressure Position Right Lateral Blood Pressure Location Left Arm Pulse Ox 96 96 96 Oxygen Delivery Method Room Air Room Air Room Air 01/30/25 03:30 01/30/25 04:00 Temperature 98.5 F Temperature Source Pulse Rate 81 77 Respiratory Rate 16 18 Blood Pressure 132/98 H 119/78 Blood Pressure Mean 109 91 Blood Pressure Source Blood Pressure Position Blood Pressure Location Pulse Ox 95 94 Oxygen Delivery Method Room Air Weight Weight: 163 lb 2.273 oz Body Mass Index (BMI) 23.3 Physical Exam Const alert Constitutional Narrative: Mild distress and anxious General Appearance: cooperative Resp normal respiratory effort GI GI Narrative: Streaming blood per rectum. Appears to be venous source. Not slowed with application of pressure directly to the anoderm. Open wound lateral to the anus on the left consistent with patient reports of excised perirectal fistula Results Lab / Micro Data 01/30/25 02:17 01/30/25 02:17 Labs: Laboratory Results - last 24 hr 01/30/25 02:17: WBC 10.8, RBC 4.59 L, Hgb 14.4, Hct 42.2, MCV 91.9, MCH 31.4, MCHC 34.1, RDW Std Deviation 48.0 H, RDW Coeff of Fito 14.3, Plt Count 181, MPV 9.1, Immature Gran % (Auto) 0.500, Neut % (Auto) 76.0 H, Lymph % (Auto) 12.0 L, Zavala % (Auto) 8.5, Eos % (Auto) 2.6, Baso % (Auto) 0.4, Absolute Neuts (auto) 8.2 H, Absolute Lymphs (auto) 1.29, Nucleated RBC % 0, PT 13.6, INR 1.0, APTT 30.6, Sodium 132 L, Potassium 4.4, Chloride 92 L, Carbon Dioxide 25.4, Anion Gap 15, BUN 41 H, Creatinine 8.10 H*, Estim Creat Clear Calc 9.51 L*, Est GFR (MDRD) Non-Af 7 L, BUN/Creatinine Ratio 5.0 L, Glucose 131 H, Calcium 9.7, Blood Type O POSITIVE, Antibody Screen NEGATIVE, Crossmatch See Detail Assessment & Plan Assessment/Plan (1) Rectal bleeding: PLAN: Patient is 64-year-old male 9 days status post excisional hemorrhoidectomy now with post surgical bleeding. Bleeding has been somewhat brisk since an episode of vomitus earlier today. Patient's vitals have been maintained. Hemoglobin is within normal limits as are coags. However, patient is a dialysis patient and makes routine use of heparin as well as is slightly uremic. I am unable to clearly visualize the source on exam both due to the bleeding as well as patient's discomfort. Therefore, I am recommending emergent operative evaluation with plans for transanal ligation. For the interim anesthesia and the operative team were notified. Patient has blood on hold to the OR. I did place a tightly rolled Surgifoam coated in viscous lidocaine to try to tamponade the bleeding until we are able to explore further in the operating room. Consents were obtained for anorectal exam under anesthesia. Patient to be admitted postoperatively for ongoing monitoring. Outside of the above patient will have to be watched closely for constipation and will need to be started on a bowel regimen. He was advised of this concern as well. Fili Nj MD General Surgery Endocrine Surgery Pager: [facility] [address] [place] [address], [facility], [address] [place] [id number] Office: [phone] (2) S/P hemorrhoidectomy: Charges/Coding Visit Charges Inpatient E&M: 89768 Init Hosp L2
--- NOTE | 2025-01-30 05:15 | ED.RN ---
This RN gave report to the surgical nurse, NISHA Call. Oneyda requested this RN to have the patient void prior to surgery. This RN asked the patient to void, however the patient stated I have been trying to pee this whole time and have not been able to. The patient then attempted to void and was unable to. This RN bladder scanned the patient and got a reading of >400ml. This RN notified ED physician and asked if the MD would like a urbina placed. MD responded the priority for this patient is getting them to the OR, in order to not delay patient care, we need to get him to surgery. If OR would like to place a urbina while the patient is under anesthesia then they can do that. But the priority is to get the patient down to the OR. This RN proceeded to bring the patient down to the OR for surgery.
--- NOTE | 2025-01-30 05:21 | PCM.CONS.GEN ---
Assessment & Plan Assessment/Plan (1) Rectal bleeding: (2) Adverse drug reaction: QUALIFIERS: Encounter type: initial encounter Qualified Code(s): T50.905A - Adverse effect of unspecified drugs, medicaments and biological substances, initial encounter (3) Constipation: QUALIFIERS: Constipation type: unspecified constipation type Qualified Code(s): K59.00 - Constipation, unspecified (4) S/P hemorrhoidectomy: (5) ESRD (end stage renal disease) on dialysis: (6) Polycystic renal disease: (7) Hx of colonoscopy with polypectomy: (8) CAD (coronary artery disease): QUALIFIERS: Coronary Disease-Associated Artery/Lesion type: [place] artery [place] vs. transplanted heart: [place] heart Associated angina: without angina Qualified Code(s): I25.10 - Atherosclerotic heart disease of [place] coronary artery without angina pectoris (9) Tobacco abuse: (10) Essential hypertension: PLAN: Plan 1. LGIB with profuse rectal bleeding with ABLA - Patient taken to surgery by Dr. Nj for definitive treatment. Transfuse for hemoglobin <7 g/dL. 2. Adverse Drug Reaction to daily BASA complicating #1 - Stop BASA to minimize risk of recurrent bleeding. 3. History of anal fistula and recent excisional hemorrhoidectomy by Dr. Mckoy on January 21, 2025 with postprocedure complication likely due to severe Constipation outlined #1 - Start daily bowel regimen with polyethylene glycol and possibly with lactulose to encourage daily BM and discourage straining at stool when okay with surgery. 4. ESRD; on HD at home ([facility]) with LUE fistula (2023) in the setting of polycystic kidney disease with his last dialysis was on Friday, January 25, 2025 with patient missing his last hemodialysis due to bleeding and feeling poorly overall compounding #1 - #3 - We we will consult nephrology to see this patient on rounds in the a.m. to help set up hemodialysis without appreciated advance. 5. History of colonoscopy with polypectomy (11/2024) adding to the medical complexity of #1 - #4 - Noted. 6. CAD; s/p VA with stent (2006) and subsequent CABG x 4 (2007) on baby aspirin daily - Serialize troponin to ensure no acute cardiac event is induced by recent bleeding. Hold BASA as outlined in #2. 7. Chronic Tobacco Abuse adding to the burden of disease outlined from #1 - #6 - Tobacco Cessation will be strongly encouraged with Nicotine patch offered to control cravings. 8. Essential hypertension; on metoprolol twice daily - Hold scheduled antihypertensives in light of recent bleeding. Give hydralazine IV as needed for systolic blood pressure greater than 160 mmHg. 9. Hyperlipidemia; on pravastatin - Maintain statin. 10. Remote history of DVT (~1977); currently not on anticoagulation - Noted. 11. History of iron deficiency anemia - Apparently stable with hemoglobin of 14.4 g/dL and MCV of 91.9 fL present on admission. 12. History of cannabis abuse - Cannabis Cessation will be strongly encouraged. 13. History of GERD with hiatal hernia; currently not on treatment - Start PPI IV in light of #1. 14. History of MRSA - Noted. 15. OA; with history of Left knee surgery and chronic back pain - Stable. 16. DVT prophylaxis - SCD's only in light of active bleeding outlined #1 contraindicating chemoprophylaxis. Total time: Approximately (but not less than) 45 minutes. HPI Consult Data Date of Consult: 01/30/25 HPI Narrative Reason for Consultation: Medical Management. HPI Narrative: MARLO ADAMSON, is a 64 M with a past medical history of essential hypertension; on metoprolol twice daily, hyperlipidemia; on pravastatin, chronic tobacco abuse, ESRD; on HD at home () with LUE fistula (2023) in the setting of polycystic kidney disease, CAD; s/p VA with stent (2006) and subsequent CABG x 4 (2007) on baby aspirin daily, remote history of DVT (~1977); currently not on anticoagulation, history of iron deficiency anemia, history of tobacco abuse, history of cannabis abuse, OA; with history of Left knee surgery and chronic back pain, history of MRSA, history of GERD with hiatal hernia; currently not on treatment, history of colonoscopy with polypectomy (11/2024), history of anal fistula and recent excisional hemorrhoidectomy by Dr. Mckoy on January 21, [address] [facility] ER complaining of rectal bleeding. Mr. Adamson reports his symptoms began approximately 3 days ago when he began to have nausea and vomiting with bilious emesis with patient concerned he had ripped something. Then 2 days ago he had another episode of vomiting that eliminated a sensation of pressure in his operative dressing and then he subsequently began streaming blood from his rectum. He admits to associated constipation since surgery and he states he attempted to contact surgery office to notify them and was told to take Dulcolax, which she did but was not effective in stimulating a bowel movement. He states his last dialysis was on Saturday, January 25, 2025 with patient missing his last hemodialysis due to bleeding and feeling poorly overall. In the ER the patient was noted to have profuse bleeding in spite of compressive dressings being placed resulting in Dr. Nj being contacted for emergent intervention with subsequent request for consultation hospitalist service to help with medical management due to his complex medical condition compounded by ESRD. He was noted to have a hemoglobin of 14.4 g/dL present on admission with a normal serum potassium of 4.4 and a serum creatinine of 8.1 mg/dL with a BUN of 41 mg/dL which are all close to his previous baseline levels. Patient will require nephrology consultation to resume hemodialysis on Wednesday, January 01, 2025 and there are no other active medical issues to address at this time other than his bleeding which is being addressed surgically. He has already been typed and screened for blood in case he will require transfusion. Thank you for allowing us to participate in the care of your patient. [facility] Medical History (Updated 01/30/25 @ 06:[address] Rainer Moore, ) CAD (coronary artery disease) History of hiatal hernia Wears glasses History of steroid therapy Arthritis Low iron Back pain Syncope Difficulty swallowing Heartburn Smoker Shortness of breath on exertion Leg cramps History of pain when walking History of edema MRSA (methicillin resistant staph aureus) culture positive ESRD (end stage renal disease) ESRD on hemodialysis (~10/31/24) Anal fistula Hemorrhoids, internal, with bleeding Wears dentures Marijuana use Polycystic renal disease DVT (deep venous thrombosis) High cholesterol History of echocardiogram Cardiology follow-up encounter Hemorrhoids, internal Myocardial infarction HTN (hypertension) Osteoarthritis Home Medications ?Medication ?Instructions ?Recorded ?Last Taken ?Type aspirin 81 mg tablet,delayed 81 mg PO DAILY 05/29/21 01/21/25 History release Held on 01/30/25. Instructions: surgery cholecalciferol (vitamin D3) 125 125 mcg PO DAILY 05/29/21 01/20/25 History mcg (5,000 unit) capsule metoprolol tartrate 25 mg tablet 25 mg PO BID 05/29/21 01/21/25 History pravastatin 40 mg tablet 40 mg PO QHS 05/29/21 01/20/25 History Hydrocortisone 2.5%/lidocaine 5% #30 ea 10/13/24 Unknown Rx suppository (cmpd) (hydrocortisone 2.5%/lidocaine 5% suppository (compound)) hydrocortisone 2.5 % topical cream 1 applic [place] QD-BID PRN hemorrhoids 10/13/24 01/20/25 Rx with perineal applicator #30 grams (Proctozone-HC) oxycodone 10 mg tablet 10 mg PO TID PRN pain 10/13/24 01/21/25 04:00 History vitamin B complex-vitamin C-folic 1 tab PO QDAY 10/13/24 01/20/25 History acid 0.8 mg tablet (Renal-Svetlana) calcitriol 0.25 mcg capsule 0.25 mcg PO DAILY 10/31/24 01/20/25 History lidocaine-prilocaine 2.5 %-2.5 % 1 applic topical DAILY PRN SKIN 10/31/24 01/20/25 History topical cream ondansetron 4 mg disintegrating 4 mg PO Q4H PRN PRN nausea and 12/21/24 01/20/25 History tablet vomiting Allergy/AdvReac Type Severity Reaction Status Date / Time atorvastatin (From Lipitor) AdvReac MUSCLE ACHE Verified 01/30/25 05:15 Family History Father Cancer abdominal tumor--unsure type Brother Heart disease Sister Brain mass Mother Brain aneurysm Surgical History (Updated 01/30/25 @ 06:[address] Rainer Moore DO) S/P hemorrhoidectomy Hx of colonoscopy with polypectomy History of arteriovenostomy for renal dialysis (~05/2021) Hx of left knee surgery History of esophagogastroduodenoscopy (EGD) Hx of cystoscopy History of cardiac catheterization History of coronary artery bypass graft History of heart artery stent Social History household members: none Smoking Status: Current every day smoker (Patient smoked today.) tobacco type: cigarettes quit status: considering quitting alcohol intake: former substance use type: does not use ROS ROS Narrative Review of Systems: Constitutional: Patient denies fever or chills. Eyes: Patient denies change in vision or discharge from eyes. ENT: Patient denies runny nose, sore throat or ear pain. Resp: Patient denies shortness of breath or cough. CV: Patient denies chest pain, palpitations, heart racing or lower extremity edema. GI: Patient admits to profuse rectal bleeding with severe constipation since recent hemorrhoidectomy as per HPI. : Patient denies dysuria or or hematuria. MSK: Patient denies arthralgias or myalgias. Skin: Patient denies rash, abscess, wounds or jaundice. Psych: Patient denies symptoms of uncontrolled depression or anxiety. Neuro: Patient denies headache, paresthesias or focal neurologic deficits. Allergy: Patient denies lip swelling, tongue swelling or urticaria. Hematology: Patient admits to profuse rectal bleeding as per HPI. Endocrinology: Patient denies polyuria, polydipsia, polyphagia or heat/cold intolerance. 14 point ROS otherwise negative except for positives noted above in HPI. Physical Exam Const alert, oriented x3 and average body habitus Constitutional Narrative: Patient appears older than his stated age. General Appearance: cooperative HEENT normocephalic, head/scalp atraumatic, hearing grossly normal bilaterally and moist oral mucous membranes Eyes PERRL and EOMs intact bilaterally Neck no lymphadenopathy, supple and no JVD Resp normal respiratory effort, no retractions, no use of accessory muscles and clear to auscultation bilaterally Cardio regular rate and regular rhythm GI normal to inspection, nondistended, normoactive bowel sounds, soft to palpation, non-tender and non-distended Extremity normal to inspection, full ROM and no clubbing, cyanosis or edema Skin Skin Narrative: Patient with evidence of rash, abscess, wounds or jaundice. Neuro oriented x3, CN's II-XII intact bilaterally, moves all extremities, no focal motor deficits and no sensory deficits noted Sensorium / Orientation: awake, alert, oriented to person, oriented to place and oriented to time Speech: speech normal Psych affect normal Medical Records Data Attestation: I reviewed the patient's medical records Lab / Micro Data Attestation: I reviewed the patient's lab results. 01/30/25 02:17 01/30/25 02:17 Labs: Laboratory Results - last 24 hr 01/30/25 02:17: WBC 10.8, RBC 4.59 L, Hgb 14.4, Hct 42.2, MCV 91.9, MCH 31.4, MCHC 34.1, RDW Std Deviation 48.0 H, RDW Coeff of Fito 14.3, Plt Count 181, MPV 9.1, Immature Gran % (Auto) 0.500, Neut % (Auto) 76.0 H, Lymph % (Auto) 12.0 L, [place] % (Auto) 8.5, Eos % (Auto) 2.6, Baso % (Auto) 0.4, Absolute Neuts (auto) 8.2 H, Absolute Lymphs (auto) 1.29, Nucleated RBC % 0, PT 13.6, INR 1.0, APTT 30.6, Sodium 132 L, Potassium 4.4, Chloride 92 L, Carbon Dioxide 25.4, Anion Gap 15, BUN 41 H, Creatinine 8.10 H*, Estim Creat Clear Calc 9.51 L*, Est GFR (MDRD) Non-Af 7 L, BUN/Creatinine Ratio 5.0 L, Glucose 131 H, Calcium 9.7, Blood Type O POSITIVE, Antibody Screen NEGATIVE, Crossmatch See Detail Charges/Coding Multi Select Codes Visit Charges Office Visit/Consults: 77505 IP Consult L3
--- NOTE | 2025-01-30 05:24 | PCM.PRE.AN2 ---
ASA Classification* ASA Classification ASA Classification: 3 and E Assessment & Plan Anesthesia* Anesthesia Assessment Anesthesia Assessment: Discussed sedation and/or anesthesia options, risks, benefits, and alternatives with patient/parents/legal guardian/POA. Questions invited. The patient/parents/legal guardian/POA seems to understand and agrees to proceed with anesthesia plan. Reviewed the physical assessment, medical history, allergy history and patient home medications list prior to surgery/procedure/anesthetic and documented any changes. Performed airway and anesthesia risk assessments. Anesthesia Type Anesthesia Type: General Anesthesia Focused Assessment* Temperature: 98.5 F Pulse Rate: 84 Blood Pressure: 118/80 Respiratory Rate: 16 Pulse Ox: 96 Airway Assessment Mouth opens: >3 cm Mallampati Score: II Labs Anesthesia Preop lab: CBC WBC 10.8 K/mm3 (4.4-11.0) 01/30/25 02:01/30/25 RBC 4.59 M/mm3 (4.6-6.2) L 01/30/25 02:01/30/25 Hgb 14.4 g/dL (13.0-16.5) 01/30/25 02:17 01/30/25 Hct 42.2 % (40-54) 01/30/25 02:01/30/25 Plt Count 181 K/mm3 (150-450) 01/30/25 02:17 01/30/25 CHEMISTRY Potassium 4.4 mmol/L (3.3-5.1) 01/30/25 02:17 01/30/25 Sodium 132 mmol/L (133-145) L 01/30/25 02:17 01/30/25 Magnesium 1.8 mg/dL (1.5-2.2) 10/31/24 02:12 10/31/24 Phosphorus 3.3 mg/dL (2.7-4.5) 10/31/24 02:12 10/31/24 BUN 41 mg/dL (4-19) H 01/30/25 02:17 01/30/25 Creatinine 8.10 mg/dL (0.70-1.20) H* 01/30/25 02:17 01/30/25 Glucose 131 mg/dL (70-99) H 01/30/25 02:01/30/25 POC Glucose 139 mg/dL (70-110) H 11/16/19 09:54 11/16/19 TSH 1.17 uIU/mL (0.358-3.74) 04/01/17 12:59 04/01/17 COAG PT 13.6 SECONDS (11.7-14.9) 01/30/25 02:17 01/30/25 Pre-Assessment Diagnosis/Proposed Procedure Planned Operative Procedure(s): bleeding hemmroid Anesthesia History 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 When Was Last Pacemaker Check QUESTION #4 FULL TEXT: You/Your Family Experience fever (hyperthermia) with Anesthesia Last Oral Intake Last Oral intake: Last Oral Intake NPO since Meds taken in AM with sips of water? Meds patient instructed to take am of surgery PONV PONV - indoor sports centre manager: PONV - indoor sports centre manager Female HX of Motion Sickness HX of N/V After Surgery Non-Smoker Duration of Surgery greater than 60 minutes Number of Risk Factors PONV Score Height & Weight Height & Weight: Anesthesia: Height & Weight Height 5 ft 10 in 01/30/25 03:30 Weight: 74 kg 01/30/25 03:30 Body Mass Index (BMI) 23.3 01/30/25 03:30 Respiratory Assessment Respiratory Assessment - indoor sports centre manager: Respiratory Tract Infection Hx - indoor sports centre manager Hx Respiratory Tract Infection No 01/07/25 09:36 STOP Sleep Apnea STOP Sleep Apnea - indoor sports centre manager: STOP Sleep Apnea - indoor sports centre manager Hx Hypertension Yes 01/30/25 03:30 Hx Sleep Apnea No 01/30/25 03:30 CPAP BIPAP Do you snore loudly (louder No 01/30/25 03:30 than talking or can be heard Do you often feel tired/ Yes 01/30/25 03:30 fatigued/ sleepy during daytime? Has anyone observed you stop No 01/30/25 03:30 breathing during sleep? STOP Results Positive 01/30/25 03:30 QUESTION #5 FULL TEXT : Do you snore loudly (louder than talking or can be heard through closed doors)? Tobacco Use History Tobacco Use History - indoor sports centre manager: Tobacco Use History - indoor sports centre manager Tobacco Use Smoking Status Current every day smoker 01/30/25 02:19 Hx Tobacco Use Yes 01/07/25 09:36 Years Smoking Packs Smoked per Day Smoking Cessation Date was within the last 15 years Hx Smoking Cessation Date Hx Smoking Cessation No 01/30/25 02:19 Counseling Hematologic Medial History Hematologic Hx - indoor sports centre manager: Hematologic Medical Hx - correctional casework specialist Hx of Blood Transfusion Hx of Transfusion in last 3 Months Date of Last Transfusion (if within last 3 months) Ever experience any problems with transfusion(s)? Specify any problems Hx of Preganancy in last 3 Months Nurse Filling Out Transfusion & Questions: Date: Time: Patient unable to answer at this time (ie. confused, unrespo /Reproduction History /Reproductive History - indoor sports centre manager: /Reproductive Hx- indoor sports centre manager Hx Now Gestational Age (in weeks): EDC: Hx Hx Para Hx Section SAB No 01/07/25 09:36 Active Medications Active Medications: Current Medications Generic Name Dose Route Start Last Admin Trade Name Freq PRN Reason Stop Dose Admin Cefotetan Disodium 2 gm/ 100 mls @ 200 mls/hr 01/30/25 05:14 Sodium Chloride IV 01/30/25 05:43 INTRAOP ONE REPLACED BY [facility] Medical History History of hiatal hernia Wears glasses History of steroid therapy Arthritis Low iron Back pain Syncope Difficulty swallowing Heartburn Smoker Shortness of breath on exertion Leg cramps History of pain when walking History of edema MRSA (methicillin resistant staph aureus) culture positive ESRD (end stage renal disease) ESRD on hemodialysis (~10/31/24) Anal fistula Hemorrhoids, internal, with bleeding Wears dentures Marijuana use Polycystic renal disease DVT (deep venous thrombosis) High cholesterol History of echocardiogram Cardiology follow-up encounter Hemorrhoids, internal Myocardial infarction HTN (hypertension) Osteoarthritis CAD (coronary artery disease) Home Medications ?Medication ?Instructions ?Recorded ?Last Taken ?Type aspirin 81 mg tablet,delayed 81 mg PO DAILY 05/29/21 01/21/25 History release Held on 01/30/25. Instructions: surgery cholecalciferol (vitamin D3) 125 125 mcg PO DAILY 05/29/21 01/20/25 History mcg (5,000 unit) capsule metoprolol tartrate 25 mg tablet 25 mg PO BID 05/29/21 01/21/25 History pravastatin 40 mg tablet 40 mg PO QHS 05/29/21 01/20/25 History Hydrocortisone 2.5%/lidocaine 5% #30 ea 10/13/24 Unknown Rx suppository (cmpd) (hydrocortisone 2.5%/lidocaine 5% suppository (compound)) hydrocortisone 2.5 % topical cream 1 applic [place] QD-BID PRN hemorrhoids 10/13/24 01/20/25 Rx with perineal applicator #30 grams (Proctozone-HC) oxycodone 10 mg tablet 10 mg PO TID PRN pain 10/13/24 01/21/25 04:00 History vitamin B complex-vitamin C-folic 1 tab PO QDAY 10/13/24 01/20/25 History acid 0.8 mg tablet (Renal-Svetlana) calcitriol 0.25 mcg capsule 0.25 mcg PO DAILY 10/31/24 01/20/25 History lidocaine-prilocaine 2.5 %-2.5 % 1 applic topical DAILY PRN SKIN 10/31/24 01/20/25 History topical cream ondansetron 4 mg disintegrating 4 mg PO Q4H PRN PRN nausea and 12/21/24 01/20/25 History tablet vomiting Allergy/AdvReac Type Severity Reaction Status Date / Time atorvastatin (From Lipitor) AdvReac MUSCLE ACHE Verified 01/30/25 05:15 Family History Father Cancer abdominal tumor--unsure type Brother Heart disease Sister Brain mass Mother Brain aneurysm Surgical History S/P hemorrhoidectomy Hx of colonoscopy with polypectomy History of arteriovenostomy for renal dialysis (~05/2021) Hx of left knee surgery History of esophagogastroduodenoscopy (EGD) Hx of cystoscopy History of cardiac catheterization History of coronary artery bypass graft History of heart artery stent Social History household members: none Smoking Status: Current every day smoker tobacco type: cigarettes quit status: considering quitting alcohol intake: former substance use type: does not use Review of Systems (Anesthesia) ROS Narrative System reviewed and no additional complaints, except as documented.
--- OUTSIDE RECORDS SUMMARY | 2025-01-30 05:36 | XMS RPT_ITS | CCD ---
Author Organization [facility] Care Team Providers Care Authorization Coordinator Name Role Phone Dr. Marlo Pollard Primary Care Provider Dr. Marlo Pollard Referring Provider [phone] Marina FIORE PANel Easley Attending Provider Abiola MALONE MD, To Garcia Primary Care Provider Rubia vailable Dr. Marlo Pollard DO Primary Care Provider Dr. Marlo Pollard DO Referring Provider Dr. Maria Ines Mckoy MD Attending Provider [phone] Dr. Jimy Jarquin MD Emergency Provider Octavio CESPEDES, Dr. Elidia Self Admit Provider Octavio CESPEDES, Dr. Elidia Self Attending Provider Octavio CESPEDES, Dr. Elidia Self Other Provider Fern CESPEDES, Dr. He Other Provider Dr. Himanshu Almaguer DO Attending Provider Nic CESPEDES, Dr. eBard Other Provider Dr. Himanshu Almaguer DO Other Provider Leelee CESPEDES, Dr. Spann Other Provider Leelee CESPEDES, Dr. Spann Referring Provider [phone] Marlo Pollard Referring Unavailable Marlo Pollard Primary Care Unavailable Robotham, Maria Ines Attending Unavailable Marlo Pollard Primary Care Unavailable Robotham, Maria Ines Consulting Unavailable Robotham, Maria Ines Referring Unavailable Robotham, Maria Ines Attending Unavailable Marlo Pollard Referring Unavailable Robotham, Maria Ines Consulting Unavailable Robotham, Maria Ines Attending Unavailable Latrice, Marlo Primary Care Unavailable Latrice, Marlo Primary Care Unavailable White, Elidia L Attending Unavailable White, Elidia L Consulting Unavailable White, Elidia L Admitting Unavailable Jopperi, Himanshu Attending Unavailable Fern, Jayaprakas Consulting Unavailable Nic, Chirag Consulting Unavailable Jopperi, Himanshu Consulting Unavailable Robotham, Maria Ines Referring Unavailable Robotham, Maria Ines Attending Unavailable Latrice, Marlo Primary Care Unavailable Latrice, Marlo Referring Unavailable Altrice, Marlo Primary Care Unavailable Robotham, Maria Ines Attending Unavailable Latrice, Marlo Primary Care Unavailable White, Elidia L Consulting Unavailable White, Elidia L Admitting Unavailable Jopperi, Himanshu Attending Unavailable Fern, Jayaprakas Consulting Unavailable Nic, Chirag Consulting Unavailable Julien KEYS, Dr. Bains Emergency Provider [phone] Ondina CESPEDES, Dr. Penn Attending Provider Ondina CESPEDES, Dr. Penn Referring Provider Ondina CESPEDES, Dr. Penn Other Provider [phone] Allergies Allergy Classification Reported Allergen(s) Allergy Type Date of Onset Reaction(s) Facility (8 sources) atorvastatin Drug Allergy 2 MUSCLE ACHE [facility] (1 source) atorvastatin Drug Allergy 0 Other: See Comments [facility] (1 source) atorvastatin Drug Allergy 5 [facility] Repository Medications Current Medications Medication Drug Class(es) Dates Sig (Normalized) Sig (Original) aspirin 81 mg delayed release oral tablet (9 sources) Platelet Aggregation Inhibitor, Nonsteroidal Anti-inflammatory Drug Start: 05-29-2021 take 1 tablet by mouth once daily Aspirin 81 mg tablet,delayed release (DR/EC) Active 81 mg PO DAILY May 29, 2021 12:00am On Hold: surgery Start: 05-15-2010 take 1 tablet by daniel th once daily Aspirin 81 mg ORAL Tab Take one(1) tablet daily. 30 Tab 11 05/15/2010 Active B Complex-Vitamin C-Folic Acid (Renal-Svetlana) 0.8 mg tablet (5 sources) Start: 10-13-2024 take 1 tablet by mouth once daily B Complex-Vitamin C-Folic Acid (Renal-Svetlana) 0.8 mg tablet Active 1 {tbl} PO daily October 13, 2024 12:00am calcitriol 0.46004 mg oral capsule (5 sources) Vitamin D3 Analog Start: 10-31-2024 take 1 capsule by mouth once daily Calcitriol 0.25 mcg capsule Active 0.25 ug PO DAILY October 31, 2024 12:00am cholecalciferol 0.125 mg oral capsule (9 sources) Vitamin D Start: 05-29-2021 take 1 capsule by mouth once daily Cholecalciferol (Vitamin D3) 125 mcg (5,000 unit) capsule Active 125 ug PO DAILY May 29, 2021 12:00am take 1 tablet by mouth once aleshia y cholecalciferol (VITAMIN D-3) 2,000 unit tablet Take 2,000 Units by mouth once daily. Active hydrocortisone 25 mg/ml topical cream (5 sources) Corticosteroid Start: 10-13-2024 Hydrocortisone (Proctozone-Hc) 2.5 % cream with perineal applicator Active 1 NMA RC 1 to 2 times per day as needed for hemorrhoids October 13, 2024 12:00am Hydrocortisone 2.5%/Lidocaine 5% Suppository (Cmpd) [Hydrocortisone 2.5%/Lidocaine 5% Suppository (Compound)] (Hydrocortisone ) suppository (5 sources) Start: 10-13-2024 Hydrocortisone 2.5%/Lidocaine 5% Suppository (Cmpd) [Hydrocortisone 2.5%/Lidocaine 5% Suppository (Compound)] (Hydrocortisone ) suppository Active 0 .ROUTE 30 October 13, 2024 12:00am insert rectum twice daily Start: 10-13-2024 Hydrocortisone 2.5%/Lidocaine 5% Suppository (Cmpd) [Hydrocortisone 2.5%/Lidocaine 5% Suppository (Compound)] (Hydrocortisone ) suppository Active 0 .ROUTE October 13, 2024 12:00am insert rectum twice daily lidocaine 25 mg/ml / prilocaine 25 mg/ml topical cream (5 sources) Antiarrhythmic, Amide Local Anesthetic Start: 10-31-2024 [...] Active metoprolol tartrate 25 mg oral tablet (9 sources) beta-Adrenergic [place] Start: 06-19-2020 take 1 tablet by mouth twice daily Metoprolol Tartrate 25 mg tablet Active 25 mg PO TWICE A DAY May 29, 2021 12:00am ondansetron 4 mg disintegrating oral tablet (11 sources) Serotonin-3 Receptor Antagonist Start: 12-21-2024 take [...] 11:29am oxyCODONE hydrochloride 10 mg oral tablet (13 sources) Opioid Agonist Start: 10-13-2024 take 1 [...] 1:55pm pravastatin sodium 40 mg oral tablet (9 sources) HMG-CoA Reductase Inhibitor Start: 06-19-2020 take [...] mg / clavulanate 125 mg oral tablet (7 sources) Penicillin-class Antibacterial Start: 12-23-2024 End: 01-21-2025 Amoxicillin-Pot Clavulanate 875-125 mg tablet Discontinued 1 {tbl} PO TWICE A DAY 14 December 23, 2024 12:00am January 21, 2025 10:22am start 1 week prior to OR (01/21)---start 01/13/25 BID Start: 10-13-2024 End: 10-31-2024 Amoxicillin-Pot Clavulanate (Augmentin) 500-125 mg tablet Discontinued 1 {tbl} PO daily 5 October 13, 2024 12:00am October 31, 2024 3:46am Take once a day. Take after dialysis. doxycycline monohydrate 100 mg oral tablet (5 sources) Tetracycline-class Drug Start: 10-31-2024 End: 11-02-2024 take 1 tablet by mouth twice daily Doxycycline Monohydrate 100 mg tablet Discontinued 100 mg PO TWICE A DAY October 31, 2024 12:00am November 02, 2024 11:29am 12 hr guaiFENesin 600 mg extended release oral tablet (4 sources) Start: 11-02-2024 End: 12-21-2024 take 1 tablet by mouth twice daily, then take 1 tablet by mouth every twelve hours Guaifenesin (Mucinex) 600 mg tablet extended release 12hr Discontinued 600 mg PO TWICE A DAY 10 November 02, 2024 12:00am December 21, 2024 9:32am linezolid 600 mg oral tablet (4 sources) Oxazolidinone Antibacterial Start: 11-02-2024 End: 12-21-2024 take 1 tablet by mouth every twelve hours Linezolid 600 mg tablet Discontinued 600 mg PO Q12H 10 November 02, 2024 12:00am December 21, 2024 9:32am polyethylene glycol 3350 179752 mg / potassium chloride 2970 mg / sodium bicarbonate 6740 mg / sodium chloride 5860 mg / sodium sulfate 61975 mg powder for oral solution (5 sources) Osmotic Laxative Start: 10-27-2024 End: 12-21-2024 take 4000 mL by mouth once Peg 3350-Electrolytes 236-22.74-6.74 -5.86 gram recon soln Discontinued 4000 mL PO ONCE 4000 0 October 27, 2024 12:00am December 21, 2024 9:33am until fecal effluent is clear; do not exceed a total volume of 4000 mL Problems Active Problems Problem Classification Problem Date Documented Da te Episodic/Chronic Acute and unspecified renal failure (8 sources) Acute renal failure syndrome; Translations: [Acute kidney failure, unspecified] 05-08-2021 Episodic Acute myocardial infarction (1 source) Acute myocardial infarction; Translations: [Acute myocardial infarction, unspecified] Onset: 7 02-05-2024 Chronic Anal and rectal conditions (14 sources) Anal fistula; Translations: [Anal fistula] Onset: 5 10-15-2024 Episodic Chronic kidney disease (20 sources) Chronic progressive renal failure; Translations: [Chronic kidney disease, stage 4 (severe)] Onset: 6 Chronic Comment on above: [facility] HOME Coronary atherosclerosis and other heart disease (9 sources) Coronary arteriosclerosis; Translations: [Atherosclerotic heart disease of [place] coronary artery without angina pectoris] Onset: 2 05-29-2021 Chronic Esophageal disorders (1 source) Gastroesophageal reflux disease; Translations: [Gastro-esophageal reflux disease without esophagitis] Onset: 7 02-05-2024 Chronic Essential hypertension (9 sources) Hypertensive disorder; Translations: [Essential (primary) hypertension] Onset: 6 05-29-2021 Chronic Comment on above: CONTROLLED WITH MED Gastrointestinal hemorrhage (2 sources) Rectal hemorrhage; Translations: [Hemorrhage of anus and rectum] 01-30-2025 Episodic Genitourinary congenital anomalies (1 source) Multiple renal cysts; Translations: [Polycystic kidney, unspecified] Onset: 2 08-21-2011 Chronic Hemorrhoids (15 sources) External hemorrhoids; Translations: [Residual hemorrhoidal skin tags] Onset: 2 08-27-2011 Episodic Hyperplasia of prostate (1 source) Benign prostatic hyperplasia; Translations: [Benign prostatic hyperplasia without lower urinary tract symptoms] Onset: 1 06-10-2011 Chronic Immunizations and screening for infectious disease (1 source) Suspected disease caused by 2019-nCoV; Translations: [Suspected 2019 novel coronavirus infection] 07-04-2020 Episodic Other aftercare (14 sources) Patient encounter status; Translations: [Encounter for therapeutic drug level monitoring] Onset: 4 02-18-2014 Episodic Other lower respiratory disease (10 sources) Hypoxemia; Translations: [Hypoxemia] 10-31-2024 Episodic Other lower respiratory disease (1 source) Hypoxemia; Translations: [Hypoxemia] Onset: 5 Episodic Other male genital disorders (1 source) Male erectile dysfunction, unspecified; Translations: [Impotence of organic origin] Onset: 0 05-15-2010 Chronic Other screening for suspected conditions (not mental disorders or infectious disease) (1 source) Encounter for screening for malignant neoplasm of colon; Translations: [Encounter for screening for malignant neoplasm of colon] Onset: 5 Episodic Pneumonia (except that caused by tuberculosis or sexually transmitted disease) (12 sources) Pneumonia; Translations: [Pneumonia, unspecified organism] Onset: 5 10-31-2024 Episodic Residual codes; unclassified (11 sources) Other specified health status; Translations: [Failure of outpatient treatment] Onset: 5 10-31-2024 Episodic Residual codes; unclassified (2 sources) History of surgical procedure on vein; Translations: [Other specified postprocedural states] 01-30-2025 Episodic Skin and subcutaneous tissue infections (6 sources) Abscess; Translations: [Cellulitis, unspecified] Onset: 7 Resolved: 9 12-15-2018 Episodic Unclassified (1 source) Anal fistula, unspecified; Translations: [Anal fistula, unspecified] Onset: 5 Past or Other Problems Problem Classification Problem [...] Test Name Value Interpretation Reference Range Facility Absolute lymphocyte countOrd ered By: Herson Victoria on 01-30-2025 Lymphocytes Auto (Unsp spec) [#/Vol] 1.29 10*3/uL 0.83-4.51 [facility] Absolute neutrophil countOrd ered By: Herson Victoria on 01-30-2025 Neutrophils (Bld) [#/Vol] 8.2 10*3/uL High 2.0-7.7 [facility] Activated partial thrombopla stin time (aPTT) in platelet poor plasma by coagulation aOrdered By: Herson Victoria on 01-30-2025 aPTT Coag (PPP) [Time] 30.6 s 24.1-36.2 [facility] Anion gap in Serum or Plasma Ordered By: Herson Victoria on 01-30-2025 Anion gap [Moles/Vol] 15 mmol/L 5-15 [facility] Automated lymphocyte count a s percentage of total leukocytesOrdered By: Herson Victoria on 01-30-2025 Lymphocytes/100 WBC Auto (Unsp spec) 12.0 % Low 19-41 [facility] BUN/creatinine ratioOrdered By: Herson Victoria on 01-30-2025 Urea nitrogen/Creatinine [Mass ratio] 5.0 mg/mg Low 10-20 [facility] Basophil percentageOrdered B y: Herson Victoria on 01-30-2025 Basophils/100 WBC (Bld) 0.4 % 0-1 [facility] Carbon dioxide, total [Moles /volume] in Central venous bloodOrdered By: Herson Victoria on 01-30-2025 CO2 [Moles/Vol] 25.4 mmol/L 21.0-32.0 [facility] Chloride assayOrdered By: Ren Victoria on 01-30-2025 Chloride [Moles/Vol] 92 mmol/L Low 98-108 [facility] Eosinophil percentageOrdered By: Herson Victoria on 01-30-2025 Eosinophils/100 WBC (Bld) 2.6 % 0-5 [facility] Erythrocyte distribution wid th ratioOrdered By: Herson Victoria on 01-30-2025 Erythrocyte distribution width (RBC) [Ratio] 14.3 % 11.6-14.6 [facility] Erythrocyte distribution wid th standard deviationOrdered By: Herson Victoria on 01-30-2025 Erythrocyte distribution width (RBC) [Ratio] 48.0 fl High 35.1-43.9 [facility] Glomerular filtration rate ( GFR) estimation/1.73 sq m using serum, plasma, or whole bOrdered By: Herson Victoria on 01-30-2025 GFR/1.73 sq M.predicted among non-blacks MDRD (S/P/Bld) [Vol rate/Area] 7 mL/min/{1.73_m2} Low >60 [facility] Comment on above: mL/min/1.73m2 CKD-EP I Creatinine Equation (2020) Hematocrit Auto (Bld) [Volum e fraction]Ordered By: Herson Victoria on 01-30-2025 Hematocrit (Bld) [Volume fraction] 42.2 % 40-54 [facility] Hemoglobin measurementOrdere d By: Herson Victoria on 01-30-2025 Hemoglobin (Bld) [Mass/Vol] 14.4 g/dL 13.0-16.5 [facility] Immature granulocytes/100 WB C Auto (Bld)Ordered By: Herson Victoria on 01-30-2025 Immature granulocytes/100 WBC (Bld) 0.500 % 0.0-0.9 [facility] Comment on above: IG% - Immature Granu locytes (promyelocytes, myelocytes and metamyelocytes) > 1% indicates that a LEFT SHIFT is Present. International normalized rat io (INR) calculationOrdered By: Herson Victoria on 01-30-2025 INR Coag (Bld) [Relative time] 1.0 {INR} [facility] MCV (mean corpuscular volume ) determinationOrdered By: Herson Victoria on 01-30-2025 MCV (RBC) [Entitic vol] 91.9 fL 80-94 [facility] Mean corpuscular hemoglobin (MCH) determinationOrdered By: Herson Victoria on 01-30-2025 MCH (RBC) [Entitic mass] 31.4 pg 27.0-32.0 [facility] Mean corpuscular hemoglobin concentration (MCHC) determinationOrdered By: Herson Victoria on 01-30-2025 MCHC (RBC) [Mass/Vol] 34.1 g/dL 32-36 [facility] Mean platelet volume determi nationOrdered By: Herson Victoria on 01-30-2025 Platelet mean volume (Bld) [Entitic vol] 9.1 fL 6.2-12.0 [facility] Monocyte percentageOrdered B y: Herson Victoria on 01-30-2025 Monocytes/100 WBC (Bld) 8.5 % 0-10 [facility] Neutrophil percentageOrdered By: Herson Victoria on 01-30-2025 Neutrophils/100 WBC (Bld) 76.0 % High 47-70 [facility] Nucleated red blood cell per centageOrdered By: Herson Victoria on 01-30-2025 Nucleated RBC/100 WBC (Bld) [Ratio] 0 % 0-5 [facility] Platelet countOrdered By: Ren Victoria on 01-30-2025 Platelets (Bld) [#/Vol] 181 10*3/uL 150-450 [facility] Potassium measurement (mass/ volume)Ordered By: Herson Victoria on 01-30-2025 Potassium (Unsp spec) [Mass/Vol] 4.4 mmol/L 3.3-5.1 [facility] Prothrombin timeOrdered By: Herson Victoria on 01-30-2025 PT Coag (PPP) [Time] 13.6 s 11.7-14.9 [facility] RBC Auto (Bld) [#/Vol]Ordere d By: Herson Victoria on 01-30-2025 RBC (Bld) [#/Vol] 4.59 10*6/uL Low 4.6-6.2 [facility] Serum creatinine measurement (mass/volume)Ordered By: Herson Victoria on 01-30-2025 Creatinine [Mass/Vol] 8.10 mg/dL High 0.70-1.20 [facility] Comment on above: Critical Result(s) C alled at:0247 by: DINORAH JOHNSTON TO SARKIS WHATLEY Results read back by same. Serum glucose measurement (m ass/volume)Ordered By: Herson Victoria on 01-30-2025 Glucose [Mass/Vol] 131 mg/dL High 70-99 [facility] Serum or plasma calcium cuong urement (mass/volume)Ordered By: Herson Victoria on 01-30-2025 Calcium [Mass/Vol] 9.7 mg/dL 7.6-11.0 [facility] Serum or plasma urea nitroge n measurement (mass/volume)Ordered By: Herson Victoria on 01-30-2025 Urea nitrogen [Mass/Vol] 41 mg/dL High 4-19 [facility] Sodium levelOrdered By: Kaur Victoria on 01-30-2025 Sodium [Moles/Vol] 132 mmol/L Low 133-145 [facility] White blood cell (WBC) count Ordered By: Herson Victoria on 01-30-2025 WBC (Bld) [#/Vol] 10.8 10*3/uL 4.4-11.0 [facility] [id number] 01-24-2025 MR/POSTOPAN2 [facility] Medical Records Department [address] [place] [address] Anesthesia Postop Eval II 01/24/25 1004 MR#: [id number] Acct: [id number] Name: MARLO ADAMSON Rep #: [id number] : 1960 64 From: Isacc Cavanaugh MD PCP: Dr. 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 Spontaneous unlabored Yes 01/21/25 14:30 MORTAR WORKER.JSWI respirations Mental status Awake 01/21/25 14:30 MORTAR WORKER.JSWI nausea No 01/21/25 14:30 MORTAR WORKER.JSWI Vomiting No 01/21/25 14:30 MORTAR WORKER.JSWI Anesthesia Postop Eval I: Fluid Summary Crystalloid volume administer 200 01/21/25 14:30 MORTAR WORKER.JSWI (ml) Colloids volume administered ( ml) Blood Product volume administered (ml) Total IV fluid infused 200 01/21/25 14:30 MORTAR WORKER.JSWI Anesthesia Postop Eval I: Summary Notes Anesthesia Complication No 01/21/25 14:30 MORTAR WORKER.JSWI Anesthesia Complication Comment: Post-operative progress note Anesthesia: Postop Eval II Evaluation Mental status: Awake and Calm Pain Level: 0 nausea: No Vomiting: No Complications Anesthesia Complication: No 01/24/25 1004 Date Isacc Cavanaugh MD Cosigner Signature: Date CC: Signed Normal [facility] Discharge Instructionon 12-27 Discharge Instruction [facility] Medical Records Department [address] [place] [address] Instructions for Home/Discharge Instructions 01/21/25 1417 MR#: [id number] Acct: [id number] Name: MARLO ADAMSON Rodrigo Rep #: [id number] : 1960 64 From: Maria Ines Mckoy MD PCP: Dr. Marlo Pollard, DO Status:REG [facility] Discharge Instructions Diet Discharge Diet: Light diet [...] weeks call the office for follow-up appointment [phone] Test Results: Test results from this visit will be discussed in further detail at your follow-up appointment, if applicable. Discharge Plan Admission Attending Provider: Maria Ines Mckoy Primary Care Provider: Marlo Pollard Instructions Print Language: German Discharge Orders/Prescriptions Prescriptions: Continued metoprolol tartrate 25 [...] % cream with perineal applicator 1 applic ID [id number] (Reason: hemorrhoids) Qty: 30 0RF [...] can be placed): Home, Self Care 01/21/25 1419 Maria Ines Mckoy MD CC: Dr. Marlo Pollard DO Signed Normal [facility] MR/POSTOP.Renetta 01-21-2025 MR/POSTOP.[facility] Medical Records Department [address] [place] [address] Anesthesia Postop Eval I 01/21/25 1429 MR#: [id number] Acct: [id number] Name: MARLO ADAMSON Rodrigo Rep #: [id number] : 1960 64 From: Rosy Daley CRNA PCP: Dr. Marlo Pollard DO Status:REG [facility] Y Race: C Location: [place] [address] Anesthesia: Postop Eval I Current Vital Signs [...] completed: Yes 01/21/25 1430 Date Rosy Daley MORTAR WORKER Cosigner Signature: Date CC: Signed Normal [facility] Operative Reporton 5 Operative Report [facility] Medical Records Department [address] [place] [address] Operative Report 01/21/25 1412 MR#: [id number] Acct: [id number] Name: MARLO ADAMSON Rep #: [id number] : 1960 64 From: Maria Ines Mckoy MD PCP: Dr. Marlo Pollard, Status:[facility] Location: [facility] Operative Report (Standard) Operative Information Date of Procedure: 01/21/25 Pre-Operative Diagnosis: Anal fistula, hemorrhoids with bleeding Post-Operative Diagnosis: Internal/external hemorrhoids with bleeding, left gluteal subcutaneous sinus tract Surgery/Procedure Performed: Hemorrhoidectomy x 2, excision of left gluteal subcutaneous sinus tract customer engineer: Yes [facility] Nurse Practitioner: Sam Amin Tasks completed by first officer: Opening closing and Retracting Type of Anesthesia: [...] DO; Dr. Maria Ines Mckoy MD Signed [facility] MR/PAT.[facility] 01-07-2025 MR/PAT.[facility] Medical Records Department [address] [place] [address] PAT - Anesthesia 01/07/25 1149 MR#: [id number] Acct: [id number] Name: MARLO ADAMSON Rep #: [id number] : 1960 64 From: Greg Cortes MD PCP: Dr. Marlo Pollard DO Status:PRE [facility] Y Race: C Location: [facility] Pre-Assessment Diagnosis/Proposed Procedure Planned Operative Procedure(s): Exam Under Anesthesia hemorrhoidectomy and possible fistulotomy Anesthesia History Anesthesia History - sole rougher: Anesthesia History - sole rougher Hx Hospitalization Yes: 4- infection 01/07/25 09:36 Any Problems With Anesthesia [...] take am of surgery PONV PONV - sole rougher: PONV - sole rougher Female No 01/07/25 09:36 HX of Motion Sickness No 01/07/25 09:36 HX of N/V After Surgery No 01/07/25 09:36 Non-Smoker No 01/07/25 09:36 Duration of Surgery greater No 01/07/25 09:36 than 60 minutes Number of Risk Factors PONV Score Height Weight Height Weight: Anesthesia: Height Weight Height 5 ft 10 in 12/22/24 06:33 Respiratory Assessment Respiratory Assessment - sole rougher: Respiratory Tract Infection Hx - sole rougher Hx Respiratory Tract Infection No 01/07/25 09:36 STOP Sleep Apnea STOP Sleep Apnea - sole rougher: STOP Sleep Apnea - sole rougher Hx Hypertension Yes 01/07/25 09:36 Hx Sleep [...] Tobacco Use History Tobacco Use History - sole rougher: Tobacco Use History - sole rougher Tobacco Use Smoking Status Current every day smoker 01/07/25 09:36 Hx Tobacco Use Yes 01/07/25 09:36 Years Smoking 40 01/07/25 09:36 Packs Smoked per Day 1 01/07/25 09:36 Smoking Cessation Date was within the last 15 years Hx Smoking Cessation Date Hx Smoking Cessation No 01/07/25 09:36 Counseling Hematologic Medial History Hematologic Hx - sole rougher: 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 Specify any problems Hx of Preganancy in last 3 N/A 01/07/25 09:36 Months Nurse Filling Out Transfusion JZOLLNADIA 01/07/25 09:36 Questions: Date: 01/07/25 01/07/25 09:36 Time: 09:38 01/07/25 09:36 Patient unable to answer at this time (ie. confused, unrespo /Reproduction History /Reproductive History - sole rougher: /Reproductive Hx- sole rougher Hx Now No 01/07/25 09:36 Gestational Age (in weeks): EDC: Hx Hx Para Hx Section SAB No 01/07/25 09:36 PFSH Medical History (Updated 01/07/25 @ 10:25 [...] PO DAILY (more content not included)... Normal [facility] Colonoscopy Reporton 025 Colonoscopy Report [facility] Medical Records Department [address] [place] [id number] Colonoscopy Report MR#: [id number] Acct: [id number] Name: MARLO ADAMSON Rep #: [id number] : 1960 64 From: Maria Ines Mckoy MD PCP: Dr. Marlo Pollard, DO Status:REG [facility] Patient Name: Marlo Adamson Procedure Date: 12/22/2024 [...] pathology results. Procedure Code(s): --- Professional --- 24601, PT, Colonoscopy, flexible; with removal of tumor(s), polyp(s), or other lesion(s) by snare technique Diagnosis Code(s): --- Professional --- Z12.11, Encounter for screening for malignant neoplasm of colon K64.2, Third degree hemorrhoids D12.2, Benign neoplasm of ascending colon K57.30, Diverticulosis of large intestine without perforation or abscess without bleeding CPT copyright 2021 [employer]. All rights reserved. The codes documented in this report are preliminary and upon per assessment nurse review may be revised to meet current compliance requirements. MD Maria Ines Patiño MD 12/22/2024 8:44:55 AM This report has been signed electronically. Number of Addenda: 0 Note Initiated On: 12/22/2024 8:03 AM 12/22/2444 Date Maria Ines Roy Signature: Date (if indicated) CC: Dr. Marlo Pollard DO; Dr. Maria Ines Mckoy MD Date Dictated: 12/22/24802 Date Transcribed: Take Away Attendant: TR Signed [facility] MR/POSTOP.[facility] 12-22-2024 MR/POSTOP.[facility] Medical Records Department [address] [place] [address] Anesthesia Postop Eval I 12/22/24841 MR#: [id number] Acct: [id number] Name: MARLO ADAMSON Rep #: [id number] : 1960 64 From: Joseph Hu PCP: Dr. Marlo Pollard DO Status:REG SDC Y Race: C Location: [place] [address] Anesthesia: Postop Eval I Current Vital Signs [...] document: Postop Eval 1 completed: Yes 12/22/24842 Date Joseph Roy Signature: Date CC: Signed Normal [facility] MR/[id number] 12-22-2024 MR/POSTOPAN2 [facility] Medical Records Department [address] [place] [address] Anesthesia Postop Eval II 12/22/24 1001 MR#: [id number] Acct: [id number] Name: MARLO ADAMSON Rep #: [id number] : 1960 64 From: Yuly Champagne PCP: Dr. Marlo Pollard, DO Status:DEP [facility] [place] Race: C Location: [place] Anesthesia Postop [...] Anesthesia Complication: No 12/22/24 1001 Date Yuly Larkinignrenzo Signature: Date CC: Signed Normal [facility] Surgery Specimen Level Vincenzo 12-22-2024 Surgery Specimen Level IV Patient Age/Sex Location Account Attending Physician MARLO ADAMSON 64/M EN [id number] Dr. Maria Ines Mckoy MD Specimen: [id number] Received: 12/22/24 Status: MARIKA Tommie Num: [id number] Spec Type: COLON BX Subm Dr: Dr. [...] it is bisected. Submitted entirely in A1. [facility] 12-22-2024 [facility]:02986 Patient Age/Sex Location Account Attending Physician MARLO ADAMSON 64/M EN [id number] Dr. Maria Ines Mckoy MD Signed (signature on file) Dr. Jazmine Weber MD 12/27/24 1205 Normal [facility] Comment on above: Performed By: #### M 300.3299, M300.4500 #### [facility] [address] [place] [place], [address] MR/PAT.ANEon 12-21-2024 MR/PAT.ANE [facility] Medical Records Department [address] [place] [address] PAT - Anesthesia 12/21/24 1016 MR#: [id number] Acct: [id number] Name: MARLO ADAMSON Rep #: [id number] : 1960 64 From: Isacc Cavanaugh MD PCP: Dr. Marlo Pollard, DO Status:PRE [facility] [place] Race: C Location: EN Pre-Assessment Diagnosis/Proposed Procedure Planned Operative Procedure(s): COLONOSCOPY Anesthesia History Anesthesia History - sole rougher: Anesthesia History - sole rougher Hx Hospitalization Yes: 10/2024 FLU/DIALYSIS 12/21/24 09:34 ISSUES Any Problems With Anesthesia No 12/21/24 09:34 Cholinesterase deficiency No 12/21/24 09:34 You/Your Family Experience No 12/21/24 09:34 fever (hyperthermia) with Relationship Recent Exposure to Contagious No 06/08/21 11:37 Disease Does patient have nerve No [...] take am of surgery PONV PONV - sole rougher: PONV - sole rougher Female No 12/21/24 09:34 HX of Motion Sickness No 12/21/24 09:34 HX of N/V After Surgery No 12/21/24 09:34 Non-Smoker No 12/21/24 09:34 Duration of Surgery greater No 12/21/24 09:34 than 60 minutes Number of Risk Factors PONV Score Height Weight Height Weight: Anesthesia: Height Weight Height 5 ft 10 in 10/31/24 16:55 Respiratory Assessment Respiratory Assessment - sole rougher: Respiratory Tract Infection Hx - sole rougher Hx Respiratory Tract Infection No 12/21/24 09:34 STOP Sleep Apnea STOP Sleep Apnea - sole rougher: STOP Sleep Apnea - sole rougher Hx Hypertension Yes: FAIRLY CONTROLLED WITH 12/21/24 [...] Tobacco Use History Tobacco Use History - sole rougher: Tobacco Use History - sole rougher Tobacco Use Smoking Status Current every day smoker 12/21/24 09:34 Hx Tobacco Use Yes 12/21/24 09:34 Years Smoking Packs Smoked per Day Smoking Cessation Date was within the last 15 years Hx Smoking Cessation Date 12/21/24 09:34 Hx Smoking Cessation Counseling Hematologic Medial History Hematologic Hx - sole rougher: 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 Normal [facility] Absolute lymphocyte countOrd ered By: Himanshu Almaguer on 11-02-2024 Lymphocytes Auto (Unsp spec) [#/Vol] 0.96 10*3/uL 0.83-4.51 [facility] Absolute neutrophil countOrd ered By: Himanshu Almaguer on 11-02-2024 Neutrophils (Bld) [#/Vol] 5.6 10*3/uL 2.0-7.7 [facility] Anion gap in Serum or Plasma Ordered By: Himanshu Almaguer on 11-02-2024 Anion gap [Moles/Vol] 14 mmol/L 5-15 [facility] Automated lymphocyte count a s percentage of total leukocytesOrdered By: Himanshu Almaguer on 11-02-2024 Lymphocytes/100 WBC Auto (Unsp spec) 12.6 % Low 19-41 [facility] BUN/creatinine ratioOrdered By: Himanshu Almaguer on 11-02-2024 Urea nitrogen/Creatinine [Mass ratio] 7.0 mg/mg Low 10-20 [facility] Basic Metabolic Profile (BMP )on 11-02-2024 BUN/CRE 7.0 RATIO Low 10- [facility] Comment on above: Performed By: #### M 300.4600, M300.4500 #### [facility] [address] [place], [address] Calcium [Mass/Vol] 8.9 mg/dL Normal 7.6-11.0 [facility] Comment on above: Performed By: #### M 300.4600, M300.4500 #### [facility] [address] [place], [address] Chloride [Moles/Vol] 98 mmol/L Normal 98-108 [facility] Comment on above: Performed By: #### M 300.4600, M300.4500 #### [facility] [address] [place], [address] CO2 [Moles/Vol] 20.8 mmol/L Low 21.0-32.0 [facility] Comment on above: Performed By: #### M 300.4600, M300.4500 #### [facility] [address] [place], [address] Creatinine [Mass/Vol] 5.94 mg/dL High 0.70-1.20 [facility] Comment on above: Performed By: #### M 300.4600, M300.4500 #### [facility] [address] [place], [address] ECRCL 12.55 ml/min Low 50-250 [facility] Comment on above: Performed By: #### M 300.4600, M300.4500 #### [facility] [address] [place], [address] GAP 14 Normal 5-15 [facility] Comment on above: Performed By: #### M 300.4600, M300.4500 #### [facility] [address] [place], [address] GFR/1.73 sq M.predicted among non-blacks MDRD (S/P/Bld) [Vol rate/Area] 10 mL/min/{1.73_m2} Low >60 [facility] Comment on above: Result Comment: mL/m in/1.73m2 CKD-EPI Creatinine Equation (2020) Performed By: #### M 300.4600, M300.4500 #### [facility] [address] [place], [address] Glucose [Mass/Vol] 88 mg/dL Normal 70-99 [facility] Comment on above: Performed By: #### M 300.4600, M300.4500 #### [facility] [address] [place], [address] Potassium [Moles/Vol] 3.8 mmol/L Normal 3.3-5.1 [facility] Comment on above: Performed By: #### M 300.4600, M300.4500 #### [facility] [address] [place], [address] Sodium [Moles/Vol] 134 mmol/L Normal 133-145 [facility] Comment on above: Performed By: #### M 300.4600, M300.4500 #### [facility] [address] [place], [address] Urea nitrogen [Mass/Vol] 41 mg/dL High 4-19 [facility] Comment on above: Performed By: #### M 300.4600, M300.4500 #### [facility] [address] [place], [address] Basophil percentageOrdered B y: Himanshu Almaguer on 11-02-2024 Basophils/100 WBC (Bld) 0.4 % 0-1 [facility] CBC W/Diff, Automatedon 04- Absolute Lymph 0.96 X10 3/uL Normal 0.83-4.51 [facility] Comment on above: Performed By: #### M 300.4600, M300.4500 #### [facility] [address] [place], [address] Absolute Neut 5.6 X10 3/uL Normal 2.0-7.7 [facility] Comment on above: Performed By: #### M 300.4600, M300.4500 #### [facility] [address] [place], [address] Basophils/100 WBC (Bld) 0.4 % Normal 0-1 [facility] Comment on above: Performed By: #### M 300.4600, M300.4500 #### [facility] [address] [place], [address] Eosinophils/100 WBC (Bld) 1.7 % Normal 0-5 [facility] Comment on above: Performed By: #### M 300.4600, M300.4500 #### [facility] [address] [place], [address] Erythrocyte distribution width (RBC) [Ratio] 13.6 % Normal 11.6-14.6 [facility] Comment on above: Performed By: #### M 300.4600, M300.4500 #### [facility] [address] [place], [address] Hematocrit (Bld) [Volume fraction] 36.8 % Low 40-54 [facility] Comment on above: Performed By: #### M 300.4600, M300.4500 #### [facility] [address] [place], [address] Hemoglobin (Bld) [Mass/Vol] 12.4 g/dL Low 13.0-16.5 [facility] Comment on above: Performed By: #### M 300.4600, M300.4500 #### [facility] [address] [place], [address] IG% 2.100 High 0.0-0.9 [facility] Comment on above: Result Comment: IG% - Immature Granulocytes (promyelocytes, myelocytes and metamyelocytes) > 1% indicates that a LEFT SHIFT is Present. Performed By: #### M 300.4600, M300.4500 #### [facility] [address] [place], [address] Lymphocytes/100 WBC (Bld) 12.6 % Low 19-41 [facility] Comment on above: Performed By: #### M 300.4600, M300.4500 #### [facility] [address] [place], [address] MCH (RBC) [Entitic mass] 31.1 pg Normal 27.0-32.0 [facility] Comment on above: Performed By: #### M 300.4600, M300.4500 #### [facility] [address] [place], [address] MCHC (RBC) [Mass/Vol] 33.7 g/dL Normal 32-36 [facility] Comment on above: Performed By: #### M 300.4600, M300.4500 #### [facility] [address] [place], [address] MCV (RBC) [Entitic vol] 92.2 fL Normal 80-94 [facility] Comment on above: Performed By: #### M 300.4600, M300.4500 #### [facility] [address] [place], [address] Monocytes/100 WBC (Bld) 9.8 % Normal 0-10 [facility] Comment on above: Performed By: #### M 300.4600, M300.4500 #### [facility] [address] [place], [address] Neutrophils/100 WBC (Bld) 73.4 % High 47-70 [facility] Comment on above: Performed By: #### M 300.4600, M300.4500 #### [facility] [address] [place], [address] Nucleated RBC (Bld) [#/Vol] 0 10*3/uL Normal 0-5 [facility] Comment on above: Performed By: #### M 300.4600, M300.4500 #### [facility] [address] [place], [address] Platelet mean volume (Bld) [Entitic vol] 9.4 fL Normal 6.2-12.0 [facility] Comment on above: Performed By: #### M 300.4600, M300.4500 #### [facility] [address] [place], [address] Platelets (Bld) [#/Vol] 218 10*3/uL Normal 150-450 [facility] Comment on above: Performed By: #### M 300.4600, M300.4500 #### [facility] [address] [place], [address] RBC (Bld) [#/Vol] 3.99 10*6/uL Low 4.6-6.2 [facility] Comment on above: Performed By: #### M 300.4600, M300.4500 #### [facility] [address] [place], [address] RDW SD 46.2 fl High 35.1-43.9 [facility] Comment on above: Performed By: #### M 300.4600, M300.4500 #### [facility] [address] [place], [address] WBC (Bld) [#/Vol] 7.6 10*3/uL Normal 4.4-11.0 [facility] Comment on above: Performed By: #### M 300.4600, M300.4500 #### [facility] [address] [place], [address] Carbon dioxide, total [Moles /volume] in Central venous bloodOrdered By: Himanshu Almaguer on 11-02-2024 CO2 [Moles/Vol] 20.8 mmol/L Low 21.0-32.0 [facility] Chloride assayOrdered By: Renzo Almaguer on 11-02-2024 Chloride [Moles/Vol] 98 mmol/L 98-108 [facility] Eosinophil percentageOrdered By: Himanshu Almaguer on 11-02-2024 Eosinophils/100 WBC (Bld) 1.7 % 0-5 [facility] Erythrocyte distribution wid th (RBC) [Ratio]Ordered By: Himanshu Almaguer on 11-02-2024 Erythrocyte distribution width (RBC) [Entitic vol] 46.2 fL High 35.1-43.9 [facility] Erythrocyte distribution wid th ratioOrdered By: Himanshu Almaguer on 11-02-2024 Erythrocyte distribution width (RBC) [Ratio] 13.6 % 11.6-14.6 [facility] Erythrocyte distribution wid th standard deviationOrdered By: Himanshu Almaguer on 11-02-2024 Erythrocyte distribution width (RBC) [Ratio] 46.2 fl High 35.1-43.9 [facility] Estimation of creatinine nicolas aranceOrdered By: Himanshu Almaguer on 11-02-2024 Estimated Creatinine Clearance Calc 12.55 ml/min Low 50-250 [facility] GFR/1.73 sq M.predicted joann g non-blacks MDRD (S/P/Bld) [Vol rate/Area]Ordered By: Himanshu Almaguer on 11-02-2024 Estimated GFR (MDRD) Non-Af Amer 10 Low >60 [facility] Comment on above: mL/min/1.73m2 CKD-EP I Creatinine Equation (2020) Glomerular filtration rate ( GFR) estimation/1.73 sq m using serum, plasma, or whole bOrdered By: Himanshu Almaguer on 11-02-2024 GFR/1.73 sq M.predicted among non-blacks MDRD (S/P/Bld) [Vol rate/Area] 10 mL/min/{1.73_m2} Low >60 [facility] Comment on above: mL/min/1.73m2 CKD-EP I Creatinine Equation (2020) Hematocrit Auto (Bld) [Volum e fraction]Ordered By: Himanshu Almaguer on 11-02-2024 Hematocrit (Bld) [Volume fraction] 36.8 % Low 40-54 [facility] Hemoglobin measurementOrdere d By: Himanshu Almaguer on 11-02-2024 Hemoglobin (Bld) [Mass/Vol] 12.4 g/dL Low 13.0-16.5 [facility] Immature granulocytes/100 WB C Auto (Bld)Ordered By: Himanshu Almaguer on 11-02-2024 Immature granulocytes/100 WBC (Bld) 2.100 % High 0.0-0.9 [facility] Comment on above: IG% - Immature Granu locytes (promyelocytes, myelocytes and metamyelocytes) > 1% indicates that a LEFT SHIFT is Present. Lymphocytes Auto (Unsp spec) [#/Vol]Ordered By: Himanshu Almaguer on 11-02-2024 Lymphocytes (Bld) [#/Vol] 0.96 10*3/uL 0.83-4.51 [facility] Lymphocytes/100 WBC Auto (Un sp spec)Ordered By: Himanshu Almaguer on 11-02-2024 Lymphocytes/100 WBC (Bld) 12.6 % Low 19-41 [facility] MCV (mean corpuscular volume ) determinationOrdered By: Himanshu Almaguer on 11-02-2024 MCV (RBC) [Entitic vol] 92.2 fL 80-94 [facility] Mean corpuscular hemoglobin (MCH) determinationOrdered By: Himanshu Almaguer on 11-02-2024 MCH (RBC) [Entitic mass] 31.1 pg 27.0-32.0 [facility] Mean corpuscular hemoglobin concentration (MCHC) determinationOrdered By: Himanshu Almaguer on 11-02-2024 MCHC (RBC) [Mass/Vol] 33.7 g/dL 32-36 [facility] Mean platelet volume determi nationOrdered By: Himanshu Almaguer on 11-02-2024 Platelet mean volume (Bld) [Entitic vol] 9.4 fL 6.2-12.0 [facility] Monocyte percentageOrdered B y: Himanshu Almaguer on 11-02-2024 Monocytes/100 WBC (Bld) 9.8 % 0-10 [facility] Neutrophil percentageOrdered By: Himanshu Almaguer on 11-02-2024 Neutrophils/100 WBC (Bld) 73.4 % High 47-70 [facility] Nucleated red blood cell per centageOrdered By: Himanshu Almaguer on 11-02-2024 Nucleated RBC/100 WBC (Bld) [Ratio] 0 % 0-5 [facility] Platelet countOrdered By: Renzo Almaguer on 11-02-2024 Platelets (Bld) [#/Vol] 218 10*3/uL 150-450 [facility] Potassium (Unsp spec) [Mass/ Vol]Ordered By: Himanshu Almaguer on 11-02-2024 Potassium [Moles/Vol] 3.8 mmol/L 3.3-5.1 [facility] Potassium measurement (mass/ volume)Ordered By: Himanshu Almaguer on 11-02-2024 Potassium (Unsp spec) [Mass/Vol] 3.8 mmol/L 3.3-5.1 [facility] RBC Auto (Bld) [#/Vol]Ordere d By: Himanshu Almaguer on 11-02-2024 RBC (Bld) [#/Vol] 3.99 10*6/uL Low 4.6-6.2 [facility] Respiratory Cultureon 2024 RESPC List Antibiotics [place] Hours? zosyn, doxycycline Mixed normal respiratory jose enrique. No Streptococcus pneumoniae, beta-hemolytic Streptococcus or Staphylococcus aureus isolated. Normal [facility] Comment on above: Performed By: #### M 8200.1000 #### [facility] [address] [place], [address] Serum creatinine measurement (mass/volume)Ordered By: Himanshu Almaguer on 11-02-2024 Creatinine [Mass/Vol] 5.94 mg/dL High 0.70-1.20 [facility] Serum glucose measurement (m ass/volume)Ordered By: Himanshu Almaguer on 11-02-2024 Glucose [Mass/Vol] 88 mg/dL 70-99 [facility] Serum or plasma calcium cuong urement (mass/volume)Ordered By: Himanshu Almaguer on 11-02-2024 Calcium [Mass/Vol] 8.9 mg/dL 7.6-11.0 [facility] Serum or plasma urea nitroge n measurement (mass/volume)Ordered By: Himanshu Almaguer on 11-02-2024 Urea nitrogen [Mass/Vol] 41 mg/dL High 4-19 [facility] Sodium levelOrdered By: Himanshu Almaguer on 11-02-2024 Sodium [Moles/Vol] 134 mmol/L 133-145 [facility] White blood cell (WBC) count Ordered By: Himanshu Almaguer on 11-02-2024 WBC (Bld) [#/Vol] 7.6 10*3/uL 4.4-11.0 [facility] Basic Metabolic Profile (BMP )on 11-01-2024 BUN/CRE 8.2 RATIO Low 10-20 [facility] Comment on above: Performed By: #### L 100.0100, L500.2500 #### [facility] [address] [place], [address] Calcium [Mass/Vol] 8.9 mg/dL Normal 7.6-11.0 [facility] Comment on above: Performed By: #### L 100.0100, L500.2500 #### [facility] [address] [place], [address] Chloride [Moles/Vol] 92 mmol/L Low 98-108 [facility] Comment on above: Performed By: #### L 100.0100, L500.2500 #### [facility] [address] [place], [address] CO2 [Moles/Vol] 21.9 mmol/L Normal 21.0-32.0 [facility] Comment on above: Performed By: #### L 100.0100, L500.2500 #### [facility] [address] [place], [address] Creatinine [Mass/Vol] 7.59 mg/dL Invalid Interpretation Code 0.70-1.20 [facility] Comment on above: Result Comment: Crit ical Result(s) Called at:0559 by: DINORAH JOHNSTON TO ALEN BRIANA??Results read back by same. Performed By: #### L 100.0100, L500.2500 #### [facility] [address] [place], [address] ECRCL 9.82 ml/min Invalid Interpretation Code 50-250 [facility] Comment on above: Performed By: #### L 100.0100, L500.2500 #### [facility] [address] [place], [address] GAP 18 High 5-15 [facility] Comment on above: Performed By: #### L 100.0100, L500.2500 #### [facility] [address] [place], [address] GFR/1.73 sq M.predicted among non-blacks MDRD (S/P/Bld) [Vol rate/Area] 7 mL/min/{1.73_m2} Low >60 [facility] Comment on above: Result Comment: mL/m in/1.73m2 CKD-EPI Creatinine Equation (2020) Performed By: #### L 100.0100, L500.2500 #### [facility] [address] [place], [address] Glucose [Mass/Vol] 101 mg/dL High 70-99 [facility] Comment on above: Performed By: #### L 100.0100, L500.2500 #### [facility] [address] [place], [address] Potassium [Moles/Vol] 3.4 mmol/L Normal 3.3-5.1 [facility] Comment on above: Performed By: #### L 100.0100, L500.2500 #### [facility] [address] [place], [address] Sodium [Moles/Vol] 132 mmol/L Low 133-145 [facility] Comment on above: Performed By: #### L 100.0100, L500.2500 #### [facility] [address] [place], [address] Urea nitrogen [Mass/Vol] 63 mg/dL High 4-19 [facility] Comment on above: Performed By: #### L 100.0100, L500.2500 #### [facility] [address] [place], [address] C. difficile DNA ALICE+probe Q l (Unsp spec)Ordered By: Chirag Lucero on 11-01-2024 Clostridioides difficile (PCR) [facility] CBC W/Diff, Automatedon Absolute Lymph 1.12 X10 3/uL Normal 0.83-4.51 [facility] Comment on above: Performed By: #### L 100.0100, L500.2500 #### [facility] [address] [place], [address] Absolute Neut 7.8 X10 3/uL High 2.0-7.7 [facility] Comment on above: Performed By: #### L 100.0100, L500.2500 #### [facility] [address] [place], [address] Basophils/100 WBC (Bld) 0.3 % Normal 0-1 [facility] Comment on above: Performed By: #### L 100.0100, L500.2500 #### [facility] [address] [place], [address] Eosinophils/100 WBC (Bld) 1.1 % Normal 0-5 [facility] Comment on above: Performed By: #### L 100.0100, L500.2500 #### [facility] [address] [place], [address] Erythrocyte distribution width (RBC) [Ratio] 13.5 % Normal 11.6-14.6 [facility] Comment on above: Performed By: #### L 100.0100, L500.2500 #### [facility] [address] [place], [address] Hematocrit (Bld) [Volume fraction] 37.4 % Low 40-54 [facility] Comment on above: Performed By: #### L 100.0100, L500.2500 #### [facility] [address] [place], [address] Hemoglobin (Bld) [Mass/Vol] 13.1 g/dL Normal 13.0-16.5 [facility] Comment on above: Performed By: #### L 100.0100, L500.2500 #### [facility] [address] [place], [address] IG% 1.000 High 0.0-0.9 [facility] Comment on above: Result Comment: IG% - Immature Granulocytes (promyelocytes, myelocytes and metamyelocytes) > 1% indicates that a LEFT SHIFT is Present. Performed By: #### L 100.0100, L500.2500 #### [facility] [address] [place], [address] Lymphocytes/100 WBC (Bld) 11.3 % Low 19-41 [facility] Comment on above: Performed By: #### L 100.0100, L500.2500 #### [facility] [address] [place], [address] MCH (RBC) [Entitic mass] 31.6 pg Normal 27.0-32.0 [facility] Comment on above: Performed By: #### L 100.0100, L500.2500 #### [facility] [address] [place], [address] MCHC (RBC) [Mass/Vol] 35.0 g/dL Normal 32-36 [facility] Comment on above: Performed By: #### L 100.0100, L500.2500 #### [facility] [address] [place], [address] MCV (RBC) [Entitic vol] 90.3 fL Normal 80-94 [facility] Comment on above: Performed By: #### L 100.0100, L500.2500 #### [facility] [address] [place], [address] Monocytes/100 WBC (Bld) 7.5 % Normal 0-10 [facility] Comment on above: Performed By: #### L 100.0100, L500.2500 #### [facility] [address] [place], [address] Neutrophils/100 WBC (Bld) 78.8 % High 47-70 [facility] Comment on above: Performed By: #### L 100.0100, L500.2500 #### [facility] [address] [place], [address] Nucleated RBC (Bld) [#/Vol] 0 10*3/uL Normal 0-5 [facility] Comment on above: Performed By: #### L 100.0100, L500.2500 #### [facility] [address] [place], [address] Platelet mean volume (Bld) [Entitic vol] 9.6 fL Normal 6.2-12.0 [facility] Comment on above: Performed By: #### L 100.0100, L500.2500 #### [facility] [address] [place], [address] Platelets (Bld) [#/Vol] 188 10*3/uL Normal 150-450 [facility] Comment on above: Performed By: #### L 100.0100, L500.2500 #### [facility] [address] [place], [address] RBC (Bld) [#/Vol] 4.14 10*6/uL Low 4.6-6.2 [facility] Comment on above: Performed By: #### L 100.0100, L500.2500 #### [facility] [address] [place], [address] RDW SD 45.1 fl High 35.1-43.9 [facility] Comment on above: Performed By: #### L 100.0100, L500.2500 #### [facility] [address] [place], [address] WBC (Bld) [#/Vol] 9.9 10*3/uL Normal 4.4-11.0 [facility] Comment on above: Performed By: #### L 100.0100, L500.2500 #### [facility] [address] [place], [address] CDIFF (PCR)on 11-01-2024 CDIFF Is the patient recei ving laxatives? N New/unexplained onset of 3 or more stools in past 24 hrs? Y Pending 027 [id number] NAP1-B1 Presumptive Negative *for epidemiolologic???use C. Diff PCR Negative- No toxigenic C. Diff Detected Normal [facility] Comment on above: Performed By: #### M 100.6796 #### [facility] [address] [facility] [place], [address] Clostridium difficile detect ion by polymerase chain reactionOrdered By: Chirag Lucero on 11-01-2024 C. difficile DNA ALICE+probe Ql (Unsp spec) [facility] Consultation - Nephrologyon 11-01-2024 Consultation - Nephrology [facility] Medical Records Department [address] [place] [address] Consultation - Nephrology 11/01/24 1205 MR#: [id number] Acct: [id number] Name: MARLO ADAMSON Rodrigo Rep #: [id number] : 1960 64 From: Maranda Bustamante PELLET PREPARATION OPERATOR-Darya PCP: Dr. Marlo Pollard, DO Status:ADM IN Location: MS3 [id number] Assessment Plan Assessment/Plan (1) ESRD (end stage [...] was poor and he has lost weight. [facility] Medical History (Updated 11/01/24 @ 12:07 by ELIN Carroll) Tobacco use ESRD on hemodialysis ( 10/31/24) [...] hydrocortisone 2.5 % topical cream 1 applic ID QD-BID PRN hemorrhoi ds 10/13/24 Unknown Rx [...] HPI Physica (more content not included)... Normal [facility] ENTERIC PATHOGEN PANEL STOOL on 11-01-2024 [...] VIBRIO Not Detected Yersinia Not Detected Normal [facility] Comment on above: Performed By: #### M 100.637, M100.7900, M100.0605 #### [facility] [address] [place], [address] Lactoferrin IA Ql (Stl)Order ed By: Chirag Lucero on 11-01-2024 Stool Lactoferrin [facility] Lower GI hemoglobin IA Ql (S tl)Ordered By: Chirag Lucero on 11-01-2024 Stool Occult Blood (PAULIE) [facility] Stool Lactoferrin/WBCon 04-0 WBCST Normal Reference Ran ge = Negative Fecal WBC Lactoferrin A Positive: Fecal WBC Lactoferrin present A Normal [facility] Comment on above: Performed By: #### M 100.637, M100.7900, M100.0605 #### [facility] [address] [place], [address] Stool Occult Blood iFOBon STOB Negative Normal [facility] Comment on above: Performed By: #### M 100.637, M100.7900, M100.0605 #### [facility] [address] [place], [address] Stool enteric pathogen panel by probe and target amplification methodOrdered By: Chirag Lucero on 11-01-2024 Enteric Bacteriology [facility] Stool gastrointestinal hemog lobin detection by immunologic methodOrdered By: Chirag Lucero on 11-01-2024 Lower GI hemoglobin IA Ql (Stl) [facility] Stool lactoferrin detection by immunoassayOrdered By: Chirag Lucero on 11-01-2024 Lactoferrin IA Ql (Stl) [facility] Absolute neutrophil countOrd ered By: Jimy Jarquin on 10-31-2024 Neutrophils (Bld) [#/Vol] 14.1 10*3/uL High 2.0-7.7 [facility] Anion gap in Serum or Plasma Ordered By: Jimy Jarquin on 10-31-2024 Anion gap [Moles/Vol] 18 mmol/L High 5-15 [facility] BUN/creatinine ratioOrdered By: Jimy Jarquin on 10-31-2024 Urea nitrogen/Creatinine [Mass ratio] 7.6 mg/mg Low 10-20 [facility] Basic Metabolic Profile (BMP )on 10-31-2024 BUN/CRE 7.6 RATIO Low 10-20 [facility] Comment on above: Performed By: #### M 300.4600, M300.4500 #### [facility] [address] [place], [address] Calcium [Mass/Vol] 9.1 mg/dL Normal 7.6-11.0 [facility] Comment on above: Performed By: #### M 300.4600, M300.4500 #### [facility] [address] [place], [address] Chloride [Moles/Vol] 89 mmol/L Low 98-108 [facility] Comment on above: Performed By: #### M 300.4600, M300.4500 #### [facility] [address] [place], [address] CO2 [Moles/Vol] 25.2 mmol/L Normal 21.0-32.0 [facility] Comment on above: Performed By: #### M 300.4600, M300.4500 #### [facility] [address] [place], [address] Creatinine [Mass/Vol] 6.33 mg/dL High 0.70-1.20 [facility] Comment on above: Performed By: #### M 300.4600, M300.4500 #### [facility] [address] [place], [address] ECRCL 11.97 ml/min Low 50-250 [facility] Comment on above: Performed By: #### M 300.4600, M300.4500 #### [facility] [address] [place], [address] GAP 18 High 5-15 [facility] Comment on above: Performed By: #### M 300.4600, M300.4500 #### [facility] [address] [place], [address] GFR/1.73 sq M.predicted among non-blacks MDRD (S/P/Bld) [Vol rate/Area] 9 mL/min/{1.73_m2} Low >60 [facility] Comment on above: Result Comment: mL/m in/1.73m2 CKD-EPI Creatinine Equation (2020) Performed By: #### M 300.4600, M300.4500 #### [facility] [address] [place], [address] Glucose [Mass/Vol] 132 mg/dL High 70-99 [facility] Comment on above: Performed By: #### M 300.4600, M300.4500 #### [facility] [address] [place], [address] Potassium [Moles/Vol] 3.3 mmol/L Normal 3.3-5.1 [facility] Comment on above: Performed By: #### M 300.4600, M300.4500 #### [facility] [address] [place], [address] Sodium [Moles/Vol] 132 mmol/L Low 133-145 [facility] Comment on above: Performed By: #### M 300.4600, M300.4500 #### [facility] [address] [place], [address] Urea nitrogen [Mass/Vol] 48 mg/dL High 4-19 [facility] Comment on above: Performed By: #### M 300.4600, M300.4500 #### [facility] [address] [place], [address] Basophil percentageOrdered B y: Jimy Jarquin on 10-31-2024 Basophils/100 WBC (Bld) 0.2 % 0-1 [facility] Bilirubin, totalOrdered By: Elidia Cunningham on 10-31-2024 Bilirubin [Mass/Vol] 0.83 mg/dL 0.00-1.30 [facility] CBC W/Diff, Automatedon 04- Absolute Lymph 0.93 X10 3/uL Normal 0.83-4.51 [facility] Comment on above: Performed By: #### M 8200.1000 #### [facility] [address] [place], [address] Absolute Neut 11.7 X10 3/uL High 2.0-7.7 [facility] Comment on above: Performed By: #### M 8200.1000 #### [facility] [address] [place], [address] Basophils/100 WBC (Bld) 0.1 % Normal 0-1 [facility] Comment on above: Performed By: #### M 8200.1000 #### [facility] [address] [place], [address] Eosinophils/100 WBC (Bld) 0.1 % Normal 0-5 [facility] Comment on above: Performed By: #### M 8200.1000 #### [facility] [address] [place], [address] Erythrocyte distribution width (RBC) [Ratio] 13.4 % Normal 11.6-14.6 [facility] Comment on above: Performed By: #### M 8200.1000 #### [facility] [address] [place], [address] Hematocrit (Bld) [Volume fraction] 39.0 % Low 40-54 [facility] Comment on above: Performed By: #### M 8200.1000 #### [facility] [address] [place], [address] Hemoglobin (Bld) [Mass/Vol] 13.5 g/dL Normal 13.0-16.5 [facility] Comment on above: Performed By: #### M 8200.1000 #### [facility] [address] [place], [address] IG% 1.200 High 0.0-0.9 [facility] Comment on above: Result Comment: IG% - Immature Granulocytes (promyelocytes, myelocytes and metamyelocytes) > 1% indicates that a LEFT SHIFT is Present. Performed By: #### M 8200.1000 #### [facility] [address] [place], [address] Lymphocytes/100 WBC (Bld) 6.7 % Low 19-41 [facility] Comment on above: Performed By: #### M 8200.1000 #### [facility] [address] [place], [address] MCH (RBC) [Entitic mass] 31.1 pg Normal 27.0-32.0 [facility] Comment on above: Performed By: #### M 8200.1000 #### [facility] [address] [place], [address] MCHC (RBC) [Mass/Vol] 34.6 g/dL Normal 32-36 [facility] Comment on above: Performed By: #### M 8200.1000 #### [facility] [address] [place], [address] MCV (RBC) [Entitic vol] 89.9 fL Normal 80-94 [facility] Comment on above: Performed By: #### M 8200.1000 #### [facility] [address] [place], [address] Monocytes/100 WBC (Bld) 7.3 % Normal 0-10 [facility] Comment on above: Performed By: #### M 8200.1000 #### [facility] [address] [place], [address] Neutrophils/100 WBC (Bld) 84.6 % High 47-70 [facility] Comment on above: Performed By: #### M 8200.1000 #### [facility] [address] [place], [address] Nucleated RBC (Bld) [#/Vol] 0 10*3/uL Normal 0-5 [facility] Comment on above: Performed By: #### M 8200.1000 #### [facility] [address] [place], [address] Platelet mean volume (Bld) [Entitic vol] 9.6 fL Normal 6.2-12.0 [facility] Comment on above: Performed By: #### M 8200.1000 #### [facility] [address] [place], [address] Platelets (Bld) [#/Vol] 186 10*3/uL Normal 150-450 [facility] Comment on above: Performed By: #### M 8200.1000 #### [facility] [address] [place], [address] RBC (Bld) [#/Vol] 4.34 10*6/uL Low 4.6-6.2 [facility] Comment on above: Performed By: #### M 8200.1000 #### [facility] [address] [place], [address] RDW SD 44.4 fl High 35.1-43.9 [facility] Comment on above: Performed By: #### M 8200.1000 #### [facility] [address] [place], [address] WBC (Bld) [#/Vol] 13.8 10*3/uL High 4.4-11.0 [facility] Comment on above: Performed By: #### M 8200.1000 #### [facility] [address] [place], [address] Absolute Lymph 0.86 X10 3/uL Normal 0.83-4.51 [facility] Comment on above: Performed By: #### M 300.4600, M300.4500 #### [facility] [address] [place], [address] Absolute Neut 14.1 X10 3/uL High 2.0-7.7 [facility] Comment on above: Performed By: #### M 300.4600, M300.4500 #### [facility] [address] [place], [address] Basophils/100 WBC (Bld) 0.2 % Normal 0-1 [facility] Comment on above: Performed By: #### M 300.4600, M300.4500 #### [facility] [address] [place], [address] Eosinophils/100 WBC (Bld) 0.1 % Normal 0-5 [facility] Comment on above: Performed By: #### M 300.4600, M300.4500 #### [facility] [address] [place], [address] Erythrocyte distribution width (RBC) [Ratio] 13.5 % Normal 11.6-14.6 [facility] Comment on above: Performed By: #### M 300.4600, M300.4500 #### [facility] [address] [place], [address] Hematocrit (Bld) [Volume fraction] 40.9 % Normal 40-54 [facility] Comment on above: Performed By: #### M 300.4600, M300.4500 #### [facility] [address] [place], [address] Hemoglobin (Bld) [Mass/Vol] 14.4 g/dL Normal 13.0-16.5 [facility] Comment on above: Performed By: #### M 300.4600, M300.4500 #### [facility] [address] [place], [address] IG% 1.500 High 0.0-0.9 [facility] Comment on above: Result Comment: IG% - Immature Granulocytes (promyelocytes, myelocytes and metamyelocytes) > 1% indicates that a LEFT SHIFT is Present. Performed By: #### M 300.4600, M300.4500 #### [facility] [address] [place], [address] Lymphocytes/100 WBC (Bld) 5.3 % Low 19-41 [facility] Comment on above: Performed By: #### M 300.4600, M300.4500 #### [facility] [address] [place], [address] MCH (RBC) [Entitic mass] 31.5 pg Normal 27.0-32.0 [facility] Comment on above: Performed By: #### M 300.4600, M300.4500 #### [facility] [address] [place], [address] MCHC (RBC) [Mass/Vol] 35.2 g/dL Normal 32-36 [facility] Comment on above: Performed By: #### M 300.4600, M300.4500 #### [facility] [address] [place], [address] MCV (RBC) [Entitic vol] 89.5 fL Normal 80-94 [facility] Comment on above: Performed By: #### M 300.4600, M300.4500 #### [facility] [address] [place], [address] Monocytes/100 WBC (Bld) 7.1 % Normal 0-10 [facility] Comment on above: Performed By: #### M 300.4600, M300.4500 #### [facility] [address] [place], [address] Neutrophils/100 WBC (Bld) 85.8 % High 47-70 [facility] Comment on above: Performed By: #### M 300.4600, M300.4500 #### [facility] [address] [place], [address] Nucleated RBC (Bld) [#/Vol] 0 10*3/uL Normal 0-5 [facility] Comment on above: Performed By: #### M 300.4600, M300.4500 #### [facility] [address] [place], [address] Platelet mean volume (Bld) [Entitic vol] 9.7 fL Normal 6.2-12.0 [facility] Comment on above: Performed By: #### M 300.4600, M300.4500 #### [facility] [address] [place], [address] Platelets (Bld) [#/Vol] 197 10*3/uL Normal 150-450 [facility] Comment on above: Performed By: #### M 300.4600, M300.4500 #### [facility] [address] [place], [address] RBC (Bld) [#/Vol] 4.57 10*6/uL Low 4.6-6.2 [facility] Comment on above: Performed By: #### M 300.4600, M300.4500 #### [facility] [address] [place], [address] RDW SD 44.1 fl High 35.1-43.9 [facility] Comment on above: Performed By: #### M 300.4600, M300.4500 #### [facility] [address] [place], [address] WBC (Bld) [#/Vol] 16.4 10*3/uL High 4.4-11.0 [facility] Comment on above: Performed By: #### M 300.4600, M300.4500 #### [facility] [address] [place], [address] Carbon dioxide, total [Moles /volume] in Central venous bloodOrdered By: Jimy Jarquin on 10-31-2024 CO2 [Moles/Vol] 25.2 mmol/L 21.0-32.0 [facility] Chest PA and Lateralon 10-31 Chest PA and Lateral [facility] [address] [place] [address] Chest PA and Lateral MR#: [id number] Acct: [id number] Name: MARLO ADAMSON Rep #: [id number] : 1960 M 64 From: Beau Blackman i DO PCP: Dr. Marlo Pollard, Status: PRE ER Study: Chest PA and Lateral Date of Exam: 10/31/24 Exam# [id number] Ordering Dr: Jimy Jarquin MD PROCEDURE: PA [...] Jimy Jarquin MD; Dr. Marlo Pollard DO Take Away Attendant: Signed Normal [facility] Chloride assayOrdered By: Odalis Jarquin on 10-31-2024 Chloride [Moles/Vol] 89 mmol/L Low 98-108 [facility] Comprehensive Metabolic Prof ilon 10-31-2024 Albumin [Mass/Vol] 3.2 g/dL Low 3.4-4.8 [facility] Comment on above: Performed By: #### M 8200.1000 #### [facility] [address] [place], [address] Albumin/Globulin [Mass ratio] 1.0 {ratio} Normal 0.9-2.4 [facility] Comment on above: Performed By: #### M 8200.1000 #### [facility] [address] [place], [address] ALK PHOS 67 U/L Normal 40-129 [facility] Comment on above: Performed By: #### M 8200.1000 #### [facility] [address] [place], [address] ALT [Catalytic activity/Vol] 22 U/L Normal <=46 [facility] Comment on above: Performed By: #### M 8200.1000 #### [facility] [address] [place], [address] AST [Catalytic activity/Vol] 24 U/L Normal <=37 [facility] Comment on above: Performed By: #### M 8200.1000 #### [facility] [address] [place], [address] Bilirubin [Mass/Vol] 0.83 mg/dL Normal 0.00-1.30 [facility] Comment on above: Performed By: #### M 8200.1000 #### [facility] [address] [place], [address] BUN/CRE 7.9 RATIO Low 10-20 [facility] Comment on above: Performed By: #### M 8200.1000 #### [facility] [address] [place], [address] Calcium [Mass/Vol] 9.0 mg/dL Normal 7.6-11.0 [facility] Comment on above: Performed By: #### M 8200.1000 #### [facility] [address] [place], [address] Chloride [Moles/Vol] 90 mmol/L Low 98-108 [facility] Comment on above: Performed By: #### M 8200.1000 #### [facility] [address] [place], [address] CO2 [Moles/Vol] 23.9 mmol/L Normal 21.0-32.0 [facility] Comment on above: Performed By: #### M 8200.1000 #### [facility] [address] [place], [address] Creatinine [Mass/Vol] 6.59 mg/dL High 0.70-1.20 [facility] Comment on above: Performed By: #### M 8200.1000 #### [facility] [address] [place], [address] ECRCL 11.26 ml/min Low 50-250 [facility] Comment on above: Performed By: #### M 8200.1000 #### [facility] [address] [place], [address] GAP 18 High 5-15 [facility] Comment on above: Performed By: #### M 8200.1000 #### [facility] [address] [place], [address] GFR/1.73 sq M.predicted among non-blacks MDRD (S/P/Bld) [Vol rate/Area] 9 mL/min/{1.73_m2} Low >60 [facility] Comment on above: Result Comment: mL/m in/1.73m2 CKD-EPI Creatinine Equation (2020) Performed By: #### M 8200.1000 #### [facility] [address] [place], [address] Globulin (S) [Mass/Vol] 3.3 g/dL Normal 2.2-4.2 [facility] Comment on above: Performed By: #### M 8200.1000 #### [facility] [address] [place], [address] Glucose [Mass/Vol] 113 mg/dL High 70-99 [facility] Comment on above: Performed By: #### M 8200.1000 #### [facility] [address] [place], [address] Potassium [Moles/Vol] 3.2 mmol/L Low 3.3-5.1 [facility] Comment on above: Performed By: #### M 8200.1000 #### [facility] [address] [place], [address] Sodium [Moles/Vol] 132 mmol/L Low 133-145 [facility] Comment on above: Performed By: #### M 8200.1000 #### [facility] [address] [place], [address] T PROT 6.5 g/dL Normal 5.9-8.4 [facility] Comment on above: Performed By: #### M 8200.1000 #### [facility] [address] [place], [id number] Urea nitrogen [Mass/Vol] 52 mg/dL High 4-19 [facility] Comment on above: Performed By: #### M 8200.1000 #### [facility] [address] [place], [id number] Emergency Department Summary on 10-31-2024 Emergency Department Summary [facility] Medical Records Department [address] [place] [id number] Emergency Department Summary 10/31/24 MR#: [id number] Acct: [id number] Name: MARLO ADAMSON Rep #: [id number] : 1960 64 From: Jimy Jarquin MD PCP: Dr. Marlo oPllard, DO Status:REG ER Location: ED HPI History [...] for this and has no other complaints. [facility] Medical History Wears dentures Alcohol use Marijuana [...] hydrocortisone 2.5 % topical cream 1 applic ID QD-BID PRN hemorrhoi ds 10/13/24 Unknown Rx [...] [employer] Positi (more content not included)... Normal [facility] Eosinophil percentageOrdered By: Jimy Jarquin on 10-31-2024 Eosinophils/100 WBC (Bld) 0.1 % 0-5 [facility] Erythrocyte distribution wid th (RBC) [Ratio]Ordered By: Jimy Jarquin on 10-31-2024 Erythrocyte distribution width (RBC) [Entitic vol] 44.1 fL High 35.1-43.9 [facility] Erythrocyte distribution wid th ratioOrdered By: Jimy Jarquin on 10-31-2024 Erythrocyte distribution width (RBC) [Ratio] 13.5 % 11.6-14.6 [facility] Estimation of creatinine nicolas aranceOrdered By: Jimy Jarquin on 10-31-2024 Estimated Creatinine Clearance Calc 11.97 ml/min Low 50-250 [facility] GFR/1.73 sq M.predicted joann g non-blacks MDRD (S/P/Bld) [Vol rate/Area]Ordered By: Jimy Jarquin on 10-31-2024 Estimated GFR (MDRD) Non-Af Amer 9 Low >60 [facility] Comment on above: mL/min/1.73m2 CKD-EP I Creatinine Equation (2020) Gram Stainon 10-31-2024 GS List Antibiotics [place] 48 Hours? zosyn, doxycycline Acceptable Specimen? Yes (<25 Epithelial cells per/lpf) Gram Stain 1+ Gram positive cocci 1+ White Blood Cells 1+ Epithelial cells 1+ Gram positive rods Normal [facility] Comment on above: Performed By: #### M 300.3510, M300.4500 #### [facility] [address] [place], [address] Gram stainOrdered By: Elidia Cunningham on 10-31-2024 Microscopic observation Gram stain Nom (Unsp spec) [facility] H AND P Exam - Hospitaliston 10-31-2024 H&P Exam - Hospitalist [facility] Medical Records Department [address] [place] [address] H P Exam - Hospitalist 10/31/24 0347 MR#: [id number] Acct: [id number] Name: MARLO ADAMSON Rep #: [id number] : 1960 64 From: Elidia Cunningham MD PCP: Dr. Marlo Pollard, DO Status:ADM [place] [facility] [id number] HPI - General General Date of Admission: 10/31/24 Date of Service: 10/31/24 Chief Complaint: Cough, congestion, dyspnea, recent outpatient abx. HPI Narrative The patient is a 64-year-old male with past medical history M w/ PMHx: PCKD w/ ESRD (T-F), CAD s/p PCI, HTN, HLD, GERD, Tobacco use, Hx VTE (DVT) who presents to the [facility] ED on 10/31/24 with congestion, fatigue, [...] the ED patient ministered IV Zosyn therapy. [facility] Medical History (Updated 10/31/24 @ 04:07 by [...] hydrocortisone 2.5 % topical cream 1 applic ID QD-BID PRN hemorrhoi ds 10/13/24 Unknown Rx [...] wounds. CARDIOVASCULAR (more content not included)... Normal [facility] Hematocrit Auto (Bld) [Volum e fraction]Ordered By: Jimy Jarquin on 10-31-2024 Hematocrit (Bld) [Volume fraction] 40.9 % 40-54 [facility] Hemoglobin measurementOrdere d By: Jimy Jarquin on 10-31-2024 Hemoglobin (Bld) [Mass/Vol] 14.4 g/dL 13.0-16.5 [facility] Immature granulocytes/100 WB C Auto (Bld)Ordered By: Jimy Jarquin on 10-31-2024 Immature granulocytes/100 WBC (Bld) 1.500 % High 0.0-0.9 [facility] Comment on above: IG% - Immature Granu locytes (promyelocytes, myelocytes and metamyelocytes) > 1% indicates that a LEFT SHIFT is Present. L. pneumophila Ag Ql (U)Orde red By: Elidia Cunningham on 10-31-[address] [facility] - Chemistry and C hemistry - challengeOrdered By: Elidia Cunningham on 10-31-2024 AST [Catalytic activity/Vol] 24 U/L <38 [facility] Legionella Antigen Urineon 0 10-31-2024 LEGU Legionella Antigen r esult interpretation: L pneumo Ag Ur Ql Negative Presumptive negative for Legionella pneumophila serogroup 1 antigen in urine, suggesting no recent or current infection. Legionella Ag, Urine Negative (See interpretation below) Normal [facility] Comment on above: Performed By: #### M 300.4600, M300.4500 #### [facility] [address] [place], [place], [id number] Lymphocytes Auto (Unsp spec) [#/Vol]Ordered By: Jimy Jarquin on 10-31-2024 Lymphocytes (Bld) [#/Vol] 0.86 10*3/uL 0.83-4.51 [facility] Lymphocytes/100 WBC Auto (Un sp spec)Ordered By: Jimy Jarquin on 10-31-2024 Lymphocytes/100 WBC (Bld) 5.3 % Low 19-41 [facility] M8200.1000on 10-31-2024 M8200.1000 Normal Reference Ran ge = Negative MRSA DNA Nose Ql ALICE+probe GeneXpert Instrument, PCR method MRSA DNA Nose Ql ALICE+probe RESULTS CALLED TO LESTER SOTO Clement 10/31/24 0844 Yanna Ferrell. REPORT READ BACK BY . MRSA PCR A MRSA POSITIVE A Meth. resistant Staph. aureus mecA A mecA Resistance Marker Detected A Normal [facility] Comment on above: Performed By: #### M 8200.1000 #### [facility] [address] [place], [place], [id number] MCV (mean corpuscular volume ) determinationOrdered By: Jimy Jarquin on 10-31-2024 MCV (RBC) [Entitic vol] 89.5 fL 80-94 [facility] MRSA DNA ALICE+probe Ql (Nose) Ordered By: Elidia Cunningham on 10-31-2024 MRSA (PCR) Meth. resistant Stap h. aureus Abnormal [facility] Magnesiumon 10-31-2024 Magnesium [Mass/Vol] 1.8 mg/dL Normal 1.5-2.2 [facility] Comment on above: Order Comment: Comme nts: May add to ED labsComments: may add to ED labs Performed By: #### M 300.4600, M300.4500 #### [facility] [address] [place], [address] Magnesium (Unsp spec) [Mass/ Vol]Ordered By: Elidia Cunningham on 10-31-2024 Magnesium [Mass/Vol] 1.8 mg/dL 1.5-2.2 [facility] Magnesium measurement (mass/ volume)Ordered By: Elidia Cunningham on 10-31-2024 Magnesium (Unsp spec) [Mass/Vol] 1.8 mg/dL 1.5-2.2 [facility] Mean corpuscular hemoglobin (MCH) determinationOrdered By: Jimy Jarquin on 10-31-2024 MCH (RBC) [Entitic mass] 31.5 pg 27.0-32.0 [facility] Mean corpuscular hemoglobin concentration (MCHC) determinationOrdered By: Jimy Jarquin on 10-31-2024 MCHC (RBC) [Mass/Vol] 35.2 g/dL 32-36 [facility] Mean platelet volume determi nationOrdered By: Jimy Jarquin on 10-31-2024 Platelet mean volume (Bld) [Entitic vol] 9.7 fL 6.2-12.0 [facility] Microbial respiratory cultur eOrdered By: Elidia Cunningham on 10-31-2024 Microorganism identified Cx Nom (Unsp spec) or Staphylococcus aureus isolated. [facility] Microorganism identified Cx Nom (Unsp spec)Ordered By: Elidia Cunningham on 10-31-2024 Respiratory Culture or Staphylococcus au reus isolated. [facility] Monocyte percentageOrdered B y: Jimy Jarquin on 10-31-2024 Monocytes/100 WBC (Bld) 7.1 % 0-10 [facility] Nasal methicillin resistant Staphylococcus aureus (MRSA) DNA detection by PCROrdered By: Elidia Cunningham on 10-31-2024 MRSA DNA ALICE+probe Ql (Nose) Meth. resistant Staph. aureus Abnormal [facility] Neutrophil percentageOrdered By: Jimy Jarquin on 10-31-2024 Neutrophils/100 WBC (Bld) 85.8 % High 47-70 [facility] Nucleated red blood cell per centageOrdered By: Jimy Jarquin on 10-31-2024 Nucleated RBC/100 WBC (Bld) [Ratio] 0 % 0-5 [facility] Phosphoruson 10-31-2024 Phosphate [Mass/Vol] 3.3 mg/dL Normal 2.7-4.5 [facility] Comment on above: Order Comment: Comme nts: May add to ED labsComments: may add to ED labs Performed By: #### M 300.4600, M300.4500 #### [facility] [address] [place], [address] Platelet countOrdered By: Odalis Jarquin on 10-31-2024 Platelets (Bld) [#/Vol] 197 10*3/uL 150-450 [facility] Potassium (Unsp spec) [Mass/ Vol]Ordered By: Jimy Jarquin on 10-31-2024 Potassium [Moles/Vol] 3.3 mmol/L 3.3-5.1 [facility] RBC Auto (Bld) [#/Vol]Ordere d By: Jimy Jarquin on 10-31-2024 RBC (Bld) [#/Vol] 4.57 10*6/uL Low 4.6-6.2 [facility] RESPIRATORY PANEL MOLECULARo n 10-31-2024 RP PANEL ADENOVIRUS Not Detected INFLUENZA A Not Detected INFLUENZA A (SUBTYPE H1) Not Detected INFLUENZA A (SUBTYPE H3) Not Detected INFLUENZA B Not Detected HUMAN METAPHNEUMO Not Detected PARAINFLUENZA 1 Not Detected PARAINFLUENZA 2 Not Detected PARAINFLUENZA 3 Not Detected PARAINFLUENZA 4 Not Detected RHINOVIRUS Not Detected RSV A Not Detected RSV B Not Detected Normal [facility] Comment on above: Performed By: #### M 100.638 #### [facility] [address] [place], [address] Respiratory pathogens DNA an d RNA panel ALICE+probe (Resp)Ordered By: Elidia Cunningham on 10-31-2024 Respiratory Panel (PCR) [facility] Respiratory pathogens detect ion panel by molecular detection methodOrdered By: Elidia Cunningham on 10-31-2024 Respiratory pathogens DNA and RNA panel ALICE+probe (Resp) [facility] Serum creatinine measurement (mass/volume)Ordered By: Jimy Jarquin on 10-31-2024 Creatinine [Mass/Vol] 6.33 mg/dL High 0.70-1.20 [facility] Serum globulin measurementOr dered By: Elidia Cunningham on 10-31-2024 Globulin (S) [Mass/Vol] 3.3 g/dL 2.2-4.2 [facility] Serum glucose measurement (m ass/volume)Ordered By: Jimy Jarquin on 10-31-2024 Glucose [Mass/Vol] 132 mg/dL High 70-99 [facility] Serum or plasma alanine velasquez otransferase (ALT) measurementOrdered By: Elidia Cunningham on 10-31-2024 ALT [Catalytic activity/Vol] 22 U/L <47 [facility] Serum or plasma albumin cuong urement (mass/volume)Ordered By: Elidia Cunningham on 10-31-2024 Albumin [Mass/Vol] 3.2 g/dL Low 3.4-4.8 [facility] Serum or plasma albumin/glob ulin mass ratioOrdered By: Elidia Cunningham on 10-31-2024 Albumin/Globulin [Mass ratio] 1.0 {ratio} 0.9-2.4 [facility] Serum or plasma alkaline padmini sphatase measurementOrdered By: Elidia Cunningham on 10-31-2024 ALP [Catalytic activity/Vol] 67 U/L 40-129 [facility] Serum or plasma calcium cuong urement (mass/volume)Ordered By: Jimy Jarquin on 10-31-2024 Calcium [Mass/Vol] 9.1 mg/dL 7.6-11.0 [facility] Serum or plasma urea nitroge n measurement (mass/volume)Ordered By: Jimy Jarquin on 10-31-2024 Urea nitrogen [Mass/Vol] 48 mg/dL High 4-19 [facility] Serum phosphorus measurement Ordered By: Elidia Cunningham on 10-31-2024 Phosphorus Level 3.3 mg/dL 2.7-4.5 [facility] Sodium levelOrdered By: Cristopher Jarquin on 10-31-2024 Sodium [Moles/Vol] 132 mmol/L Low 133-145 [facility] Strep pneumoniae Antig(UR,CS F)on 10-31-2024 STPAG URINE INTERPRETATION Strep pneumoniae Antig(UR,CSF) Strep pneumoniae Antig(UR,CSF) Negative Urine Presumptive negative for pneumococcal pneumonia, suggesting no current or recent pneumococcal infection. Infection due to S pneumoniae cannot be ruled out since the antigen present in the sample may be below the detection limit of the test. Strep pneumo Test Negative URINE (See interpretation below) Normal [facility] Comment on above: Performed By: #### M 300.8150, M300.4500 #### [facility] [address] [place], [place], [address] Streptococcus pneumoniae ant igen assayOrdered By: Elidia Cunningham on 10-31-2024 Streptococcus pneumoniae Antigen (M [facility] Total proteinOrdered By: Aut sheron Cunningham on 10-31-2024 Protein [Mass/Vol] 6.5 g/dL 5.9-8.4 [facility] Urine Legionella pneumophila antigen detectionOrdered By: Elidia Cunningham on 10-31-2024 L. pneumophila Ag Ql (U) [facility] White blood cell (WBC) count Ordered By: Jimy Jarquin on 10-31-2024 WBC (Bld) [#/Vol] 16.4 10*3/uL High 4.4-11.0 [facility] Surgery Visit Reporton 10-13 Surgery Visit Report [facility] [address] [place], [place] [address] OFFICE VISIT Date of Service: 10/13/24 MR#: [id number] Acct: [id number] Name: MARLO ADAMSON Rep #: [id number] : 1960 Provider: Dr. Maria Ines molina MD Age/Sex: 64/M Location: [facility] Status: Signed Intake Vital Signs 06/08/21 11:37 [...] hydrocortisone 2.5 % topical cream 1 applic ID QD-BID PRN hemorrhoi ds 10/13/24 10/13/24 Rx with perineal applicator #30 grams (Proctozone-HC) oxycodone 10 mg tablet 10 mg PO TID PRN 10/13/24 10/13/24 History vitamin B complex-vitamin C-folic 1 tab PO QDAY 10/13/24 10/13/24 H istory acid 0.8 mg tablet (Renal-Svetlana) [facility] Medical History Acute renal failure Alcohol use [...] states he did have a CT at [facility] sometime in the past we will try to get that record. Patient has never had a colonoscopy, den (more content not included)... Normal [facility] No Panel InformationOrdered By: Dr. Shirley on 10-01-2022 Hepatitis B Surface Antigen Non-Reactive Nonreactive [facility] Serum hepatitis B virus core antibody detectionOrdered By: Dr. Shirley on 10-01-2022 HBV core Ab Ql (S) Negative Negative [facility] Comment on above: Performed at: [address] [id number] Director: Ted Horne PhD, Phone: [phone] Serum hepatitis B virus surf valery antibody IgG detectionOrdered By: Dr. Shirley on 10-01-2022 HBV surface IgG Ql (S) Non-Reactive [facility] Comment on above: Non Reactive: Incons istent with immunity less than <10 mIU/mL Reactive: Consistent with immunity greater than or equal to 10 mIU/mL Basophil percentageOrdered B y: Dr. Shirley on 09-17-2022 Basophil percentage 4.2 mg/dL 2.5-4.9 [facility] Bilirubin [Mass/Vol] 0.50 mg/dL 0.20-1.00 [facility] Comment on above: For patients on eltr ombopag therapy, use of Dimension [place] TBIL is not recommended. Chloride [Moles/Vol] 109 mmol/L 98-107 [facility] Glucose [Mass/Vol] 96 mg/dL 74-106 [facility] Potassium [Moles/Vol] 4.9 mmol/L 3.5-5.1 [facility] Protein [Mass/Vol] 6.7 g/dL 6.4-8.2 [facility] Sodium [Moles/Vol] 138 mmol/L 136-145 [facility] WBC (Bld) [#/Vol] 6.8 10*3/uL 4.4-11.0 [facility] Blood erythrocytes count (nu mber/volume)Ordered By: Dr. Shirley on 09-17-2022 RBC (Bld) [#/Vol] 4.00 10*6/uL 4.6-6.2 [facility] Blood hemoglobin measurement (mass/volume)Ordered By: Dr. Shirley on 09-17-2022 Hemoglobin (Bld) [Mass/Vol] 11.8 g/dL 13.0-16.5 [facility] Blood platelet mean volumeOr dered By: Dr. Shirley on 09-17-2022 Platelet mean volume (Bld) [Entitic vol] 10.5 fL 6.2-12.0 [facility] Determination of erythrocyte mean corpuscular volume (MCV)Ordered By: Dr. Shirley on 09-17-2022 MCV (RBC) [Entitic vol] 91.8 fL 80-94 [facility] Direct bilirubinOrdered By: Dr. Shirley on 09-17-2022 Bilirubin.direct [Mass/Vol] 0.18 mg/dL 0.00-0.30 [facility] Hematocrit Auto (Bld) [Volum e fraction]Ordered By: Dr. Shirley on 09-17-2022 Hematocrit (Bld) [Volume fraction] 36.7 % 40-54 [facility] - Chemistry and C hemistry - challengeOrdered By: Dr. Shirley on 09-17-2022 ALP [Catalytic activity/Vol] 68 U/L 45-117 [facility] ALT [Catalytic activity/Vol] 14 U/L 16-61 [facility] CO2 [Moles/Vol] 23.0 mmol/L 21.0-32.0 [facility] Globulin (S) [Mass/Vol] 3.5 g/dL 2.2-4.2 [facility] Urea nitrogen/Creatinine [Mass ratio] 9.7 mg/mg 10-20 [facility] Laboratory - Hematology and Cell countsOrdered By: Dr. Shirley on 09-17-2022 Erythrocyte distribution width (RBC) [Entitic vol] 43.1 fL 35.1-43.9 [facility] Erythrocyte distribution width (RBC) [Ratio] 12.8 % 11.6-14.6 [facility] MCH (RBC) [Entitic mass] 29.5 pg 27.0-32.0 [facility] MCHC Auto (RBC) [Mass/Vol]Or dered By: Dr. Shirley on 09-17-2022 MCHC (RBC) [Mass/Vol] 32.2 g/dL 32-36 [facility] No Panel InformationOrdered By: Dr. Shirley on 09-17-2022 Estimated GFR (MDRD) Amer 14 mL/min >60 [facility] Comment on above: GFR Calc Estimated GFR (MDRD) Non-Af Amer 11 mL/min >60 [facility] Comment on above: Non- GFR Calc Parathyroid Hormone (Intact) 327.7 pg/mL 18.4-80.1 [facility] Vitamin D 25-Hydroxy 45.6 ng/mL [facility] Comment on above: Vitamin D 25(OH) Sta tus Range Deficiency <20 ng/mL (50nmol/L) Insufficiency 20 - 30 ng/mL (50 - 75 nmol/L) Sufficiency 30 - 100 ng/mL (75 - 250 nmol/L) Toxicity >100 ng/mL (>250 nmol/L) Platelets bldOrdered By: Dr. Shirley on 09-17-2022 Platelets (Bld) [#/Vol] 121 10*3/uL 150-450 [facility] Serum or plasma albumin cuong urement (mass/volume)Ordered By: Dr. Shirley on 09-17-2022 Albumin [Mass/Vol] 3.2 g/dL 3.2-5.0 [facility] Serum or plasma calcium cuong urement (mass/volume)Ordered By: Dr. Shirley on 09-17-2022 Calcium [Mass/Vol] 8.6 mg/dL 8.5-10.1 [facility] Serum or plasma creatinine m easurement (mass/volume)Ordered By: Dr. Shirley on 09-17-2022 Creatinine [Mass/Vol] 5.54 mg/dL 0.70-1.30 [facility] Comment on above: The validity of the calculated GFR & GFRAA in patients over 70 years has not been determined. Clinical correlation is essential. Serum or plasma urea nitroge n measurement (mass/volume)Ordered By: Dr. Shirley on 09-17-2022 Urea nitrogen [Mass/Vol] 54 mg/dL 7-18 [facility] Thin prep Papanicolaou smear with manual screeningOrdered By: Dr. Shirley on 09-17-2022 Thin prep Papanicolaou smear with manual screening 11 U/L 15-37 [facility] Thin prep Papanicolaou smear with manual screening 6 5-15 [facility] Urine creatinine measurement (mass/volume)Ordered By: Dr. Shirley on 09-17-2022 Creatinine (U) [Mass/Vol] 67.30 mg/dL NO RANGE EST. [facility] Urine protein measurement (m ass/volume)Ordered By: Dr. Shirley on 09-17-2022 Protein (U) [Mass/Vol] 146.1 mg/dL 0.0-11.8 [facility] Urine protein/creatinine mas s ratioOrdered By: Dr. Shirley on 09-17-2022 Protein/Creatinine (U) [Mass ratio] 2171 mg/g CRE 0-200 [facility] Basophil percentageon 2021 Basophil percentage 4.0 mg/dL 2.5-4.9 [facility] Work Phone: [phone] Chloride [Moles/Vol] 111 mmol/L 98-107 [facility] Work Phone: Glucose [Mass/Vol] 92 mg/dL 74-106 [facility] Work Phone: [phone] Potassium [Moles/Vol] 4.5 mmol/L 3.5-5.1 [facility] Work Phone: Sodium [Moles/Vol] 137 mmol/L 136-145 [facility] Work Phone: [phone] WBC (Bld) [#/Vol] 6.9 10*3/uL 4.4-11.0 [facility] Work Phone: [phone] Blood erythrocytes count (nu mber/volume)on 11-19-2021 RBC (Bld) [#/Vol] 4.31 10*6/uL 4.6-6.2 [facility] Work Phone: [phone] Blood hemoglobin measurement (mass/volume)on 11-19-2021 Hemoglobin (Bld) [Mass/Vol] 12.7 g/dL 13.0-16.5 [facility] Work Phone: [phone] Blood platelet mean volumeon 11-19-2021 Platelet mean volume (Bld) [Entitic vol] 10.1 fL 6.2-12.0 [facility] Work Phone: Determination of erythrocyte mean corpuscular volume (MCV)on 11-19-2021 MCV (RBC) [Entitic vol] 90.0 fL 80-94 [facility] Work Phone: Hematocrit Auto (Bld) [Volum e fraction]on 11-19-2021 Hematocrit (Bld) [Volume fraction] 38.8 % 40-54 [facility] Work Phone: Laboratory - Chemistry and C hemistry - challengeon 11-19-2021 CO2 [Moles/Vol] 20.0 mmol/L 21.0-32.0 [facility] Work Phone: Urea nitrogen/Creatinine [Mass ratio] 9.7 mg/mg 10-20 [facility] Work Phone: Laboratory - Hematology and Cell countson 11-19-2021 Erythrocyte distribution width (RBC) [Entitic vol] 44.6 fL 35.1-43.9 [facility] Work Phone: Erythrocyte distribution width (RBC) [Ratio] 13.5 % 11.6-14.6 [facility] Work Phone: MCH (RBC) [Entitic mass] 29.5 pg 27.0-32.0 [facility] Work Phone: MCHC Auto (RBC) [Mass/Vol]on 11-19-2021 MCHC (RBC) [Mass/Vol] 32.7 g/dL 32-36 [facility] Work Phone: No Panel Informationon 11-19 Estimated GFR (MDRD) Amer 18 mL/min >60 [facility] Work Phone: Comment on above: GFR Calc Estimated GFR (MDRD) Non-Af Amer 15 mL/min >60 [facility] Work Phone: Comment on above: Non- GFR Calc Parathyroid Hormone (Intact) 148.8 pg/mL 18.4-80.1 [facility] Work Phone: Vitamin D 25-Hydroxy 61.0 ng/mL [facility] Work Phone: Comment on above: Vitamin D 25(OH) Sta tus Range Deficiency <20 ng/mL (50nmol/L) Insufficiency 20 - 30 ng/mL (50 - 75 nmol/L) Sufficiency 30 - 100 ng/mL (75 - 250 nmol/L) Toxicity >100 ng/mL (>250 nmol/L) Platelets bldon 11-19-2021 Platelets (Bld) [#/Vol] 146 10*3/uL 150-450 [facility] Work Phone: Serum or plasma albumin cuong urement (mass/volume)on 11-19-2021 Albumin [Mass/Vol] 3.3 g/dL 3.2-5.0 [facility] Work Phone: Serum or plasma calcium cuong urement (mass/volume)on 11-19-2021 Calcium [Mass/Vol] 8.9 mg/dL 8.5-10.1 [facility] Work Phone: Serum or plasma creatinine m easurement (mass/volume)on 11-19-2021 Creatinine [Mass/Vol] 4.42 mg/dL 0.70-1.30 [facility] Work Phone: Comment on above: The validity of the calculated GFR & GFRAA in patients over 70 years has not been determined. Clinical correlation is essential. Serum or plasma urea nitroge n measurement (mass/volume)on 11-19-2021 Urea nitrogen [Mass/Vol] 43 mg/dL 7-18 [facility] Work Phone: Urine creatinine measurement (mass/volume)on 11-19-2021 Creatinine (U) [Mass/Vol] 109.00 mg/dL NO RANGE EST. [facility] Work Phone: [phone] Urine protein measurement (m ass/volume)on 11-19-2021 Protein (U) [Mass/Vol] 61.4 mg/dL 0.0-11.8 [facility] Work Phone: Urine protein/creatinine mas s ratioon 11-19-2021 Protein/Creatinine (U) [Mass ratio] 563 mg/g CRE 0-200 [facility] Work Phone: Basophil percentageon 2021 Chloride [Moles/Vol] 111 mmol/L 98-107 [facility] Work Phone: Glucose [Mass/Vol] 91 mg/dL 74-106 [facility] Work Phone: Potassium [Moles/Vol] 4.7 mmol/L 3.5-5.1 [facility] Work Phone: Sodium [Moles/Vol] 140 mmol/L 136-145 [facility] Work Phone: Laboratory - Chemistry and C hemistry - challengeon 08-10-2021 CO2 [Moles/Vol] 25.0 mmol/L 21.0-32.0 [facility] Work Phone: Urea nitrogen/Creatinine [Mass ratio] 10.7 mg/mg 10-20 [facility] Work Phone: No Panel Informationon 08-10 Estimated GFR (MDRD) Amer 18 mL/min >60 [facility] Work Phone: Comment on above: GFR Calc Estimated GFR (MDRD) Non-Af Amer 15 mL/min >60 [facility] Work Phone: Comment on above: Non- GFR Calc Serum or plasma calcium cuong urement (mass/volume)on 08-10-2021 Calcium [Mass/Vol] 9.1 mg/dL 8.5-10.1 [facility] Work Phone: Serum or plasma creatinine m easurement (mass/volume)on 08-10-2021 Creatinine [Mass/Vol] 4.29 mg/dL 0.70-1.30 [facility] Work Phone: Comment on above: The validity of the calculated GFR & GFRAA in patients over 70 years has not been determined. Clinical correlation is essential. Serum or plasma urea nitroge n measurement (mass/volume)on 08-10-2021 Urea nitrogen [Mass/Vol] 46 mg/dL 7-18 [facility] Work Phone: Thin prep Papanicolaou smear with manual screeningon 08-10-2021 Thin prep Papanicolaou smear with manual screening 4 5-15 [facility] Work Phone: Urine creatinine measurement (mass/volume)on 08-10-2021 Creatinine (U) [Mass/Vol] 92.10 mg/dL NO RANGE EST. [facility] Work Phone: Urine protein measurement (m ass/volume)on 08-10-2021 Protein (U) [Mass/Vol] 51.2 mg/dL 0.0-11.8 [facility] Work Phone: Urine protein/creatinine mas s ratioon 08-10-2021 Protein/Creatinine (U) [Mass ratio] 556 mg/g CRE 0-200 [facility] Work Phone: CNCOon 10-18-2020 CNCO Letter Text Normal [facility] CNPNon 09-29-2020 CNPN Telephone (FAMPWS) MARLO ADAMSON ([id number]) 1960 M Date Time Provider Department 09/29/20 TO WILKES III During your visit today, we recorded the following information about you: Kathya Cortes RN 09/29/2020 1:09 PM Signed Patient reports [...] and abscess of unspecified site [L03*01/29/2007 12/15/2018 [place] NOS EPISODE CARE UNSPEC [I21.9] 02/03/2007 Hematuria [...] TO WILKES III, MD on 09/29/20 Normal [facility] XR Chest PA and Lateralon IMPRESSION: Stable exam without acute findings. Take Away Attendant: SAW Transcribe Date/Time: Jul 04 2020 5:42P Dictated by : CESARIO DÍAZ MD This examination was interpreted and the report reviewed and electronically signed by: CESARIO DÍAZ MD on Jul 04 2020 5:46PM [facility] DIVISION OF RADIOLOGY * * *Final [...] post median sternotomy. DIVISION OF RADIOLOGY Provider, [facility] - 07/04/2020 * * *Final Report* [...] IMPRESSION IMPRESSION: Stable exam without acute findings. Take Away Attendant: SAW Transcribe Date/Time: Jul 04 2020 5:42P Dictated by : CESARIO DÍAZ MD This examination was interpreted and the report reviewed and electronically signed by: CESARIO DÍAZ MD on Jul 04 2020 5:46PM EST [facility] Radiology Study observation (narrative) [facility] XR Chest PA and LateralOrder ed By: Ccf Provider on 07-04-2020 [facility] Vital Signs Date Time Vital Sign Value Performing Clinician Karen leung 01-30-2025 05:25-0400 Body temperature 98.5 [degF] Dr. Marlo Pollard DO Work Phone: [facility] 01-30-2025 05:25-0400 Diastolic blood pressure 80 mm[Hg] Dr. Marlo Pollard DO Work Phone: [facility] 01-30-2025 05:25-0400 Heart rate 84 /min Dr. Marlo Pollard DO Work Phone: [facility] 01-30-2025 05:25-0400 Respiratory rate 16 /min Dr. Marlo Pollard DO Work Phone: [facility] 01-30-2025 05:25-0400 SaO2% (BldA) [Mass fraction] 96 % Dr. Marlo Pollard DO Work Phone: [facility] 01-30-2025 05:25-0400 Systolic blood pressure 118 mm[Hg] Dr. Marlo Pollard DO Work Phone: [facility] 01-30-2025 03:30-0400 Body height 177.[address] Marlo Pollard DO Work Phone: [facility] 01-30-2025 03:30-0400 Body mass index (BMI) [Ratio] 23.3 kg/m2 Dr. Marlo Pollard DO Work Phone: [facility] 01-30-2025 03:30-0400 Body weight [address] Marlo Pollard DO Work Phone: [facility] 01-21-2025 16:26-0400 Body temperature 97.7 [degF] Dr. Marlo Pollard DO Work Phone: [facility] 01-21-2025 16:26-0400 Diastolic blood pressure 77 mm[Hg] Dr. Marlo Pollard DO Work Phone: [facility] 01-21-2025 16:26-0400 Heart rate 56 /min Dr. Marlo Pollard DO Work Phone: [facility] 01-21-2025 16:26-0400 Respiratory rate 16 /min Dr. Marlo Pollard DO Work Phone: [facility] 01-21-2025 16:26-0400 SaO2% (BldA) [Mass fraction] 97 % Dr. Marlo Pollard DO Work Phone: [facility] 01-21-2025 16:26-0400 Systolic blood pressure 149 mm[Hg] Dr. Marlo Pollard DO Work Phone: [facility] 01-21-2025 10:25-0400 Body height 177.[address] Marlo Pollard DO Work Phone: [facility] 01-21-2025 10:25-0400 Body mass index (BMI) [Ratio] 23.1 kg/m2 Dr. Marlo Pollard DO Work Phone: [facility] 01-21-2025 10:25-0400 Body weight [address] Marlo Pollard DO Work Phone: [facility] 12-22-2024 08:50-0400 Body temperature 97.3 [degF] Dr. Marlo Pollard DO Work Phone: [facility] 12-22-2024 08:50-0400 Diastolic blood pressure 66 mm[Hg] Dr. Marlo Pollard DO Work Phone: [facility] 12-22-2024 08:50-0400 Heart rate 63 /min Dr. Marlo Pollard DO Work Phone: [facility] 12-22-2024 08:50-0400 Respiratory rate 16 /min Dr. Marlo Pollard DO Work Phone: [facility] 12-22-2024 08:50-0400 SaO2% (BldA) [Mass fraction] 100 % Dr. Marlo Pollard DO Work Phone: [facility] 12-22-2024 08:50-0400 Systolic blood pressure 101 mm[Hg] Dr. Marlo Pollard DO Work Phone: [facility] 12-22-2024 06:33-0400 Body height 177.[address] Marlo Pollard DO Work Phone: [facility] 12-22-2024 06:33-0400 Body mass index (BMI) [Ratio] 23.3 kg/m2 Dr. Marlo Pollard DO Work Phone: [facility] 12-22-2024 06:33-0400 Body weight [address] Marlo Pollard DO Work Phone: [facility] 11-02-2024 13:11-0400 Heart rate 67 /min Dr. Marlo Pollard DO Work Phone: [facility] 11-02-2024 13:11-0400 Respiratory rate 16 /min Dr. Marlo Pollard DO Work Phone: [facility] 11-02-2024 13:11-0400 SaO2% (BldA) [Mass fraction] 92 % Dr. Marlo Pollard DO Work Phone: [facility] 11-02-2024 13:06-0400 Body temperature 97.8 [degF] Dr. Marlo Pollard DO Work Phone: [facility] 11-02-2024 13:06-0400 Diastolic blood pressure 65 mm[Hg] Dr. Marlo Pollard DO Work Phone: [facility] 11-02-2024 13:06-0400 Systolic blood pressure 138 mm[Hg] Dr. Marlo Pollard DO Work Phone: [facility] 11-02-2024 03:44-0400 Inhaled oxygen flow rate 2 L/min Dr. Marlo Pollard DO Work Phone: [facility] 11-01-2024 11:41-0400 Body mass index (BMI) [Ratio] 22.2 kg/m2 Dr. Marlo Pollard DO Work Phone: [facility] 11-01-2024 11:41-0400 Body weight 70.[address] Marlo Pollard DO Work Phone: [facility] 10-31-2024 16:55-0400 Body height 177.[address] Marlo Pollard DO Work Phone: [facility] 10-31-2024 03:47-0400 Body temperature 98.1 [degF] Dr. Marlo Pollard DO Work Phone: [facility] 10-31-2024 03:47-0400 Diastolic blood pressure 69 mm[Hg] Dr. Marlo Pollard DO Work Phone: [facility] 10-31-2024 03:47-0400 Heart rate 77 /min Dr. Marlo Pollard DO Work Phone: [facility] 10-31-2024 03:47-0400 Respiratory rate 16 /min Dr. Marlo Pollard DO Work Phone: [facility] 10-31-2024 03:47-0400 SaO2% (BldA) [Mass fraction] 93 % Dr. Marlo Pollard DO Work Phone: [facility] 10-31-2024 03:47-0400 Systolic blood pressure 146 mm[Hg] Dr. Marlo Pollard DO Work Phone: [facility] 10-31-2024 03:45-0400 Inhaled oxygen flow rate 3 L/min Dr. Marlo Pollard DO Work Phone: [facility] 10-31-2024 01:58-0400 Body height 177.[address] Marlo Pollard DO Work Phone: [facility] 10-31-2024 01:58-0400 Body mass index (BMI) [Ratio] 22.7 kg/m2 Dr. Marlo Pollard DO Work Phone: [facility] 10-31-2024 01:58-0400 Body weight 71.[address] Marlo Pollard DO Work Phone: [facility] 10-13-2024 14:14-0400 Body mass index (BMI) [Ratio] 24.2 kg/m2 Dr. Marlo Pollard DO Work Phone: [facility] 10-13-2024 14:14-0400 Body weight 76.[address] Marlo Pollard DO Work Phone: [facility] 10-13-2024 14:14-0400 Diastolic blood pressure 79 mm[Hg] Dr. Marlo Pollard DO Work Phone: [facility] 10-13-2024 14:14-0400 Heart rate 66 /min Dr. Marlo Pollard DO Work Phone: [facility] 10-13-2024 14:14-0400 Respiratory rate 17 /min Dr. Marlo Pollard DO Work Phone: [facility] 10-13-2024 14:14-0400 SaO2% (BldA) [Mass fraction] 97 % Dr. Marlo Pollard DO Work Phone: [facility] 10-13-2024 14:14-0400 Systolic blood pressure 156 mm[Hg] Dr. Marlo Pollard DO Work Phone: [facility] Encounters Encounter Date Encounter Type Care Provider Facility Start: 01-30-2025 Non-patient / Non-visit Dr. Fili Nj MD -[facility] Start: 01-30-2025 Admission to [facility] Dr. Fili Nj MD -[employer] Work Phone: Start: 01-30-[address] Marlo luis DO Work Phone: -[employer] Start: 01-21-2025 Non-patient / Non-visit Dr. Ervin Mckoy MD -[facility] Start: 01-21-2025 End: 01-21-2025 Admission to same day surgery center Dr. Maria Ines Mckoy MD -[facility] Start: 01-21-2025 End: 01-21-[address] Marlo Pollard DO Work Phone: -[facility] Start: 12-22-2024 Non-patient / Non-visit Dr. Ervin Mckoy MD -[facility] Start: 12-22-2024 End: 12-22-2024 Admission to same day surgery center Dr. Maria Ines Mckoy MD -Endoscopy Work Phone: Start: 12-22-2024 End: 12-22-[address] Marlo Pollard DO Work Phone: [facility] Work Phone: Start: 11-02-2024 Non-patient / Non-visit Dr. Himanshu lee [facility] Work Phone: Start: 11-01-2024 Non-patient / Non-visit Dr. Himanshu lee [facility] Work Phone: Start: 10-31-2024 ambulatory [facility] Facility: [facility] Start: 10-31-2024 End: 11-02-2024 Evaluation and management of inpatient Dr. Elidia Cunningham MD -Medical Surgical 3 Work Phone: Start: 10-13-2024 End: 10-13-[address] Maria Ines Mckoy MD -[facility] Work Phone: Start: 10-13-2024 End: 10-13-2024 ambulatory [facility] Facility:[facility] Start: 10-01-2022 End: 10-01-2022 ambulatory [facility] Work Phone: Start: 10-01-2022 End: 10-01-2022 Patient encounter procedure [facility] Start: 09-17-2022 End: 09-17-2022 ambulatory [facility] Work Phone: Start: 09-17-2022 End: 09-17-2022 Patient encounter procedure [facility] Start: 11-19-2021 End: 11-19-[address] Marlo Pollard Work Phone: [facility] Start: 08-10-2021 End: 08-10-[address] Marlo Pollard Work Phone: [facility] Start: 07-31-2021 End: 07-31-[address] Marlo Pollard Work Phone: [facility] Start: 07-04-2020 End: 07-04-2020 Subsequent hospital visit by physician [facility] Work Phone: Radiology Comment on above: Suspected 2019 novel coronavirus infection [Z20.828] Procedures Date Procedure Procedure Detail Performing Clinician Start: 01-30-[address] Marlo Pollard DO Work Phone: Start: 01-21-[address] Vinh Pollard DO Work Phone: Start: 12-22-2024 Colonoscopy [...] 07-04-2020 Radiologic exam chest 2 views Emilee CANNONC Work Phone: Start: 06-14-2020 Lipid 1996 panel - S stevo or Plasma Xr [facility] Work Phone: Plan of Treatment Date Care Activity Detail Author Start: 2035 RSV Vaccine (1 - 1-dose 75+ series) RSV Vaccine (1 - 1-dose 75+ series) [facility] Start: 04-14-2029 Urine microalbumin profile DTaP,Tdap,Td Vaccine (3 - Td or Tdap) [facility] Start: 06-14-2025 Lipid panel Lipid Screening [facility] Start: 04-18-2025 Prostate specific antigen measurement Prostate Cancer Screening Discussion [facility] Start: 01-30-2025 Hemorrhoidectomy Hemorrhoidectomy (Not Applicable) [facility] Start: 01-30-2025 Hospital admission, emergency, from emergency room, medical nature [facility] Start: 01-30-2025 Administration of blood product [facility] Start: 01-30-2025 Leukocyte reduced red blood cells [facility] Start: 01-21-2025 Patient discharge [facility] Start: 12-22-2024 Colsc flx w/rmvl of tumor polyp lesion snare tq COLONOSCOPY W/LESION REMOVAL [facility] Start: 12-22-2024 Patient discharge [facility] Start: 11-02-2024 Patient discharge [facility] Start: 11-02-2024 Physiotherapy of chest [facility] Start: 11-01-2024 End: 11-01-2024 [facility] Start: 11-01-2024 Hemodialysis care [facility] Start: 10-31-2024 Following clinical pathway protocol [facility] Start: 10-31-2024 Assessment of risk of venous thromboembolism [facility] Start: 10-31-2024 Bacteria identified in Sputum by Culture [facility] Start: 10-31-2024 Fall prevention [facility] Start: 10-31-2024 Incentive spirometry [facility] Start: 10-31-2024 Inhalation therapy procedure [facility] Start: 10-31-2024 Insertion of catheter into peripheral vein [facility] Start: 10-31-2024 Introduction of urinary catheter [facility] Start: 10-31-2024 Measuring intake and output [facility] Start: 10-31-2024 Methicillin resistant Staphylococcus aureus (MRSA) DNA [Presence] in Nose by ALICE with probe detection [facility] Start: 10-31-2024 Methicillin resistant Staphylococcus aureus screening test [facility] Start: 10-31-2024 Oxygen therapy [facility] Start: 10-31-2024 Providing care according to standard [facility] Start: 10-31-2024 Provision of activity privileges [facility] Start: 10-31-2024 Referral to credit reporter [facility] Start: 10-31-2024 Referral to occupational therapist [facility] Start: 10-31-2024 Referral to service [facility] Start: 10-31-2024 Taking nasal swab [facility] Start: 10-31-2024 [facility] Start: 10-31-2024 Following clinical pathway protocol [facility] Start: 04-06-2025 Verification routine [facility] Start: 10-31-2024 Legionella pneumophila Ag [Presence] in Urine [facility] Start: 10-31-2024 Respiratory pathogens DNA and RNA panel - Respiratory specimen by ALICE with probe detection [facility] Start: 10-31-2024 Streptococcus pneumoniae antigen assay [facility] Start: 10-31-2024 Admission procedure [facility] Start: 10-31-2024 Serum inorganic phosphate measurement [facility] Start: 10-31-2024 Patient referral to dietitian [facility] Start: 10-31-2024 [facility] Start: 03-28-2024 Covid-19 Vaccine () Covid-19 Vaccine () [facility] Start: 03-28-2024 Influenza vaccination Influenza Vaccine (#1) [facility] Start: 04-19-2023 Diabetes Screening Diabetes Screening [facility] Start: 06-19-2021 Annual PCP Team Chronic Disease Visit Annual PCP Team Chronic Disease Visit [facility] Start: 06-14-2021 Hepatitis B surface antibody level LDL Cholesterol [facility] Start: 04-19-2021 Complete blood count Hemoglobin/Hematocrit [facility] Start: 06-18-2020 Creatinine measurement Serum Creatinine [facility] Start: 06-07-2020 Screening for malignant neoplasm of colon [facility] Start: 08-12-2016 Pneumococcal vaccination Pneumococcal Vaccine (2 of 2 - PPSV23 or PCV20) [facility] Start: 2010 Shingrix Vaccine (1 of 2) Shingrix Vaccine (1 of 2) [facility] Start: 2005 Screening for malignant neoplasm of colon [facility] Start: 1978 Anxiety Screening Anxiety Screening [facility] Start: 1978 BP Controlled (<130/80) BP Controlled (<130/80) [facility] Start: 1978 Depression Screening Depression Screening [facility] Start: 1978 Hepatitis C screening Hepatitis C Screening [facility] Start: 1978 HIV screening HIV Screening [facility] Alanine aminotransfe rase [Enzymatic activity/volume] in Serum or Plasma [facility] Albumin [Mass/volume ] in Serum or Plasma [facility] Alkaline phosphatase [Enzymatic activity/volume] in Serum or Plasma [facility] Anion gap in Serum o r Plasma [facility] Bilirubin, total measurement [facility] BUN/Creatinine ratio [facility] Calcium [Mass/volume ] in Serum or Plasma [facility] Carbon dioxide, tota l [Moles/volume] in Central venous blood [facility] Colonoscopy [facility] Creatinine [Mass/vol ume] in Serum or Plasma [facility] Erythrocyte mean corpuscular volume determination [facility] Glucose [Mass/volume ] in Serum or Plasma [facility] Hematocrit [Volume Fraction] of Blood [facility] Hemoglobin [Mass/vol ume] in Blood [facility] Leukocytes [#/volume ] in Blood [facility] Magnesium measurement [facility] Mean corpuscular hemoglobin concentration determination [facility] Mean corpuscular hemoglobin determination [facility] Measurement of renal function [facility] Neutrophil count [facility] Neutrophil percent differential count [facility] Patient referral [facility] Work Phone: Platelets [#/volume] in Blood [facility] Potassium measurement [facility] Red blood cell count [facility] Red cell distributio n width determination [facility] Serum chloride measurement [facility] Sodium measurement [facility] Total protein measurement [facility] Urea nitrogen [Mass/volume] in Serum or Plasma [facility] Immunizations Immunization Date Immunization Notes Care Provider Kartik gee 04-14-2019 tetanus toxoid, redu bud diphtheria toxoid, and acellular pertussis vaccine, adsorbed Xr [facility] Work Phone: [facility] 06-17-2016 pneumococcal conjuga te vaccine, 13 valent [facility] Work Phone: [facility] 06-17-2016 influenza virus vacc ine, unspecified formulation [facility] Work Phone: [facility] 06-17-2013 tetanus toxoid, redu bud diphtheria toxoid, and acellular pertussis vaccine, adsorbed Xr [facility] Work Phone: [facility] Payers Date Payer Category Payer Medicare [id number] 2024 Self-pay [id number] 2024 Medicare [id number] 2015 Medicare MEDICARE MEDICAR E A AND B [id number] 2015-Present [phone] [address] [address] [place] [address] Medicare [id number] Medicare [id number] Unknown [id number] Unknown [id number] Unknown [id number] Unknown [id number] Unknown [id number] Unknown [id number] Unknown [id number] Unknown [id number] Unknown [id number] Unknown [id number] Social History Date Type Detail Facility Start: 06-06-2021 End: 06-06-2021 Tobacco smoking status WYIS Unknown if ever smoked [facility] Start: 1960 Sex Assigned At Male [facility] Start: 07-03-2011 End: 01-30-2025 Tobacco smoking status WYIS Smokes tobacco daily [facility] Work Phone: History of tobacco use Cigarette Smoker C [facility] Start: 07-03-2011 End: 2020 Cigarettes smoked current (pack per day) - Reported 1 [facility] Start: 07-03-2011 Tobacco use and exposure Smokeless tobacco non-user [facility] Start: 06-19-2020 Alcoholic beverage intake Current non-drinker of alcohol (finding) [facility] Start: 06-19-2020 End: 2020 Tobacco use panel [facility] National Score (1-10 0), lower number is lower risk Not on file [facility] Start: 05-15-2010 Tobacco [facility] Start: 1960 Sex assigned at Not on file C [facility] Start: 06-04-2020 End: 07-04-2020 Exposure to SARS-CoV-2 (event) Not sure [facility] Start: 10-31-2024 End: 11-02-2024 Sex Male (finding) [facility] Medical Equipment Procedure Code Equipment Code [...] Result Facility 11-02-2024 Functional status Ambulates;Bathroom Priv [facility] Work Phone: Mental Status Date Assessment Result Facility 01-21-2025 Cognitive function Voice/Name [facility] Work Phone: 12-22-2024 Cognitive function Voice/Name [facility] Work Phone: 11-02-2024 Cognitive function Voice/Name [facility] Work Phone: 10-31-2024 Cognitive function Level Of Cons ciousness Awake;Alert;Appropriate;Follow s Commands [facility] Work Phone: Clinical Notes 2019 to 01-30-2025 Note Date & Type Note Facility 01-30-2025 Consult note [facility] 01-30-2025 Discharge summary [facility] 01-30-2025 History and physical note [facility] 01-21-2025 Discharge summary Note Date/Time January 21, 2025 2:19pm [facility] Medical Records Department [address] [place] [address] Instructions for Home/Discharge Instructions 01/21/25 1417 MR#: [id number] Acct: [id number] Name: MARLO ADAMSON Rep #:[id number] : 1960 64 From: Maria Ines Mckoy MD PCP: Dr. Marlo Pollard, DO Status:[facility] Discharge Instructions Diet Discharge Diet: Light diet [...] weeks call the office for follow-up appointment [phone] Test Results: Test results from this visit will be discussed in further detail at your follow-up appointment, if applicable. Discharge Plan Admission Attending Provider: Maria Ines Mckoy Primary Care Provider: Marlo Pollard Instructions Print Language: German Discharge Orders/Prescriptions Prescriptions: Continued metoprolol tartrate 25 [...] % cream with perineal applicator 1 applic ID [id number] (Reason: hemorrhoids) Qty: 30 0RF [...] CC: Dr. Marlo Pollard DO ~ Signed [facility] Work Phone: [phone] 371-191706-27-2025 Consult note [facility] Medical Records Department [address] [place] [place] [address] Anesthesia Postop Eval I 01/21/25 1429 MR#: [id number] Acct: [id number] Name: MARLO ADAMSON Rep #:[id number] : 1960 64 From: Rosy Garcia PCP: Dr. Marlo Pollard DO Status:REG SDC Y Race: C Location: [place] [address] Anesthesia: Postop Eval I Current Vital Signs [...] Yes 01/21/25 1430 RNA> Date _ Rosy Larkinigner Signature: Date CC: ~ Signed [facility]06-27-2025 Discharge summary [facility] Medical Records Department [address] [place] [address] Instructions for Home/Discharge Instructions 01/21/25 1417 MR#: [id number] Acct: [id number] Name: MARLO ADAMSON Rep #:[id number] : 1960 64 From: Maria Ines Mckoy MD PCP: Dr. Marlo Pollard, Status:REG [facility] Discharge Instructions Diet Discharge Diet: Light diet [...] weeks call the office for follow-up appointment [phone] Test Results: Test results from this visit will be discussed in further detail at your follow- up appointment, if applicable. Discharge Plan Admission Attending Provider: Maria Ines Mckoy Primary Care Provider: Marlo Pollard Instructions Print Language: German Discharge Orders/Prescriptions Prescriptions: Continued metoprolol tartrate 25 [...] % cream with perineal applicator 1 applic ID QD-BID PRN (Reason: hemorrhoids) Qty: 30 0RF [...] CC: Dr. Marlo Pollard DO ~ Signed [facility]06-27-2025 Consult note Author Isacc Cavanaugh [facility] Note Date/Time January 21, 2025 11:0 3am [facility] Medical Records Department [address] [place] [address] Pre-Anesthesia Evaluation 01/21/25 1057 MR#: [id number] Acct: [id number] Name: MARLO ADAMSON Rep #:[id number] : 1960 64 From: Isacc Cavanaugh MD PCP: Dr. Marlo Pollard DO Status:REG SDC Y Race: C Location: [place] [address] ASA Classification* ASA Classification ASA Classification: 3 [...] possible fistulotomy Anesthesia History Anesthesia History - sole rougher: Anesthesia History - sole rougher Hx Hospitalization Yes: 11-19 infection 01/07/25 09:36 [...] sips of water?: Yes PONV PONV - sole rougher: PONV - sole rougher Female No 01/07/25 09:36 HX of Motion [...] 01/21/25 10:25 Respiratory Assessment Respiratory Assessment - sole rougher: Respiratory Tract Infection Hx - sole rougher Hx Respiratory Tract Infection No 01/07/25 09:36 STOP Sleep Apnea STOP Sleep Apnea - sole rougher: STOP Sleep Apnea - sole rougher Hx Hypertension Yes 01/07/25 09:36 Hx Sleep [...] Tobacco Use History Tobacco Use History - sole rougher: Tobacco Use History - sole rougher Tobacco Use Smoking Status Current every day [...] today.) Hematologic Medial History Hematologic Hx - sole rougher: 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 Hx of Blood Transfusion No 01/07/25 09:36 [...] confused, unrespo /Reproduction History /Reproductive History - sole rougher: /Reproductive Hx- sole rougher Hx Now No 01/07/25 09:36 Gestational Age [...] hydrocortisone 2.5 % topical cream 1 applic ID QD-BID PRN hemorrhoids 10/13/24 01/20/25 Rx with [...] torres MD> Date _ Isacc Cavanaugh MD [facility] Signature: Date CC: ~ Signed [facility] Work Phone: 1(491) 785-751306-27-2025 History and physical note Author Maria Ines Mckoy [facility] Note Date/Time January 21, 2025 11:0 0[facility] Medical Records Department [address] [place] [address] History & Physical Exam 01/21/25 1004 MR#: [id number] Acct: [id number] Name: MARLO ADAMSON Rep #:[id number] : 1960 64 From: Maria Ines Mckoy MD PCP: Dr. Marlo Pollard, DO Status:[facility] Location: [place] [address] History and Physical Date of Admission: 01/21/25 12/22/24 0708 MR#: [id number] Acct: [id number] Name: MARLO ADAMSON Rep #: [id number] : 1960 64 From: Maria Ines Mckoy MD PCP: Dr. Marlo Pollard, DO Status: REG [facility] Location: [place] [address] HPI - General General Date of Service: [...] states he did have a CT at [facility] sometime in the past we will try to get that record. Patient has never had a colonoscopy, denies any family history of colon cancer. [facility] Medical History (Updated 12/22/24 @ 07:14 by [...] hydrocortisone 2.5 % topical cream 1 applic ID QD-BID PRN hemorrhoids 10/1312/21/24 Rx with perineal [...] ACHE Discharge Is Pt Admitted From a Alf, or a Fpc: No After D/C, Where Do you Plan [...] Dr. Maria Ines Mckoy MD ~* Signed [facility] Work Phone: 1(522) 681-157106-27-2025 Consult note [facility] Medical Records Department [address] [place] [address] Pre-Anesthesia Evaluation 01/21/25 1057 MR#: [id number] Acct: [id number] Name: MARLO ADAMSON Rep #:[id number] : 1960 64 From: Isacc Cavanaugh MD PCP: Dr. Marlo oPllard, DO Status:REG SDC Y Race: C Location: [place] [address] ASA Classification* ASA Classification ASA Classification: 3 [...] possible fistulotomy Anesthesia History Anesthesia History - sole rougher: Anesthesia History - sole rougher Hx Hospitalization Yes: 11-19 infection 01/07/25 09:36 [...] sips of water?: Yes PONV PONV - sole rougher: PONV - sole rougher Female No 01/07/25 09:36 HX of Motion [...] 01/21/25 10:25 Respiratory Assessment Respiratory Assessment - sole rougher: Respiratory Tract Infection Hx - sole rougher Hx Respiratory Tract Infection No 01/07/25 09:36 STOP Sleep Apnea STOP Sleep Apnea - sole rougher: STOP Sleep Apnea - sole rougher Hx Hypertension Yes 01/07/25 09:36 Hx Sleep [...] Tobacco Use History Tobacco Use History - sole rougher: Tobacco Use History - sole rougher Tobacco Use Smoking Status Current every day [...] today.) Hematologic Medial History Hematologic Hx - sole rougher: 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 Specify any problems Hx of Preganancy in last 3 N/A 01/07/25 09:36 Months Nurse Filling Out Transfusion JZOLLINGE 01/07/25 09:36 & Questions: Date: 01/07/25 01/07/25 09:36 Time: 09:38 01/07/25 09:36 Patient unable to answer at this time (ie. confused, unrespo /Reproduction History /Reproductive History - sole rougher: /Reproductive Hx- sole rougher Hx Now No 01/07/25 09:36 Gestational Age [...] hydrocortisone 2.5 % topical cream 1 applic ID QD-BID PRN hemorrhoids 10/13/24 01/20/25 Rx with [...] Isacc Roy Signature: Date CC: ~ Signed [facility]06-27-2025 History and physical note [facility] Medical Records Department [address] [place] [address] History & Physical Exam 01/21/25 1004 MR#: [id number] Acct: [id number] Name: MARLO ADAMSON Rep #:[id number] : 1960 64 From: Maria Ines Mckoy MD PCP: Dr. Marlo Pollard, DO Status:REG [facility] Location: [place] [address] History and Physical Date of Admission: 01/21/25 12/22/24 0708 MR#: [id number] Acct: [id number] Name: MARLO ADAMSON Rep #: [id number] : 1960 64 From: Maria Ines Mckoy MD PCP: Dr. Marlo Pollard, DO Status: REG [facility] Location: [place] [address] HPI - General General Date of Service: [...] states he did have a CT at [facility] sometime in the past we will try to get that record. Patient has never had a colonoscopy, denies any family history of colon cancer. [facility] Medical History (Updated 12/22/24 @ 07:14 by [...] hydrocortisone 2.5 % topical cream 1 applic ID QD-BID PRN hemorrhoids 10/1312/21/24 Rx with perineal [...] ACHE Discharge Is Pt Admitted From a Alf, or a Fpc: No After D/C, Where Do you Plan [...] Cosigner Signature (if applicable): cc: Dr. Marlo Pollard, ; Dr. Maria Ines Mckoy MD ~* Signed [facility]06-27-2025 [facility] Medical Records Department [address] [place] [address] History Physical Exam 01/21/25 1004 MR#: [id number] Acct: [id number] Name: MARLO ADAMSON Rep #: [id number] : 1960 64 From: Maria Ines Mckoy MD PCP: Dr. Marlo Pollard, Status:REG [facility] Location: [address] History and Physical Date of Admission: 01/21/25 12/22/24 0708 MR#: [id number] Acct: [id number] Name: MARLO ADAMSON Rep #: [id number] : 1960 64 From: Maria Ines Mckoy MD PCP: Dr. Marlo Pollard, Status: REG [facility] Location: [place] [address] HPI - General General Date of Service: [...] states he did have a CT at [facility] sometime in the past we will try to get that record. Patient has never had a colonoscopy, denies any family history of colon cancer. [facility] Medical History (Updated 12/22/24 @ 07:14 by [...] hydrocortisone 2.5 % topical cream 1 applic ID QD-BID PRN hemorrhoids 10/13/24 Rx with perineal [...] Cunningham MD) Father Cancer (more content not included)...[facility]05-28-2025 Consult note Author Yuly Champagne [facility] Note Date/Time December 22, 2024 7:25a m [facility] Medical Records Department [address] [place] [address] Pre-Anesthesia Evaluation 12/22/24 0721 MR#: [id number] Acct: [id number] Name: MARLO ADAMSON Rep #:[id number] : 1960 64 From: Yuly Champagne PCP: Dr. Marlo Pollard, DO Status:REG [facility] Y Race: C Location: [place] [address] ASA Classification* ASA Classification ASA Classification: 3 [...] Procedure(s): COLONOSCOPY Anesthesia History Anesthesia History - sole rougher: Anesthesia History - sole rougher Hx Hospitalization Yes: 10/2024 FLU/DIALYSIS 12/22/24 07:09 [...] take am of surgery PONV PONV - sole rougher: PONV - sole rougher Female No 12/21/24 09:34 HX of Motion [...] 12/22/24 06:33 Respiratory Assessment Respiratory Assessment - sole rougher: Respiratory Tract Infection Hx - sole rougher Hx Respiratory Tract Infection No 12/22/24 07:09 STOP Sleep Apnea STOP Sleep Apnea - sole rougher: STOP Sleep Apnea - sole rougher Hx Hypertension Yes: FAIRLY CONTROLLED WITH 12/22/24 [...] Tobacco Use History Tobacco Use History - sole rougher: Tobacco Use History - sole rougher Tobacco Use Smoking Status Current every day smoker 12/22/24 07:09 Hx Tobacco Use Yes 12/21/24 09:34 Years Smoking Packs Smoked per Day Smoking Cessation Date was within the last 15 years Hx Smoking Cessation Date 12/21/24 09:34 Hx Smoking Cessation Counseling Hematologic Medial History Hematologic Hx - sole rougher: 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 Hx of Blood Transfusion No 12/21/24 09:34 [...] confused, unrespo /Reproduction History /Reproductive History - sole rougher: /Reproductive Hx- sole rougher Hx Now No 12/22/24 07:09 Gestational Age [...] hydrocortisone 2.5 % topical cream 1 applic ID QD-BID PRN hemorrhoids 10/13/24 12/21/24 Rx with [...] Champagne Cosigner Signature: Date CC: ~ Signed [facility] Work Phone: 1(696) 414-433605-28-2025 History and physical note Author Maria Ines Mckoy [facility] Note Date/Time December 22, 2024 7:17a m [facility] Medical Records Department [address] [place] [address] History & Physical Exam 12/22/24707 MR#: [id number] Acct: [id number] Name: MARLO ADAMSON Rep #:[id number] : 1960 64 From: Maria Ines Mckoy MD PCP: Dr. Marlo Pollard, DO Status:[facility] Location: [place] [address] HPI - General General Date of Service: [...] states he did have a CT at [facility] sometime in the past we will try to get that record. Patient has never had a colonoscopy, denies any family history of colon cancer. [facility] Medical History (Updated 12/22/24 @ 07:14 by [...] hydrocortisone 2.5 % topical cream 1 applic ID QD-BID PRN hemorrhoids 10/13/24 12/21/24 Rx with [...] ACHE Discharge Is Pt Admitted From a Alf, or a Fpc: No After D/C, Where Do you Plan [...] DO; Dr. Maria Ines Mckoy MD~ Signed [facility] Work Phone: 1(701) 184-595105-28-2025 Procedure note [facility] Medical Records Department [address] [place] [address] Colonoscopy Report MR#: [id number] Acct: [id number] Name: MARLO ADAMSON Rep #:[id number] : 1960 64 From: Maria Ines Mckoy MD PCP: Dr. Marlo Pollard DO Status:REG [facility] Patient Name: Marlo Adamsno Procedure Date: 12/22/2024 8:03 AM Date of [...] pathology results. Procedure Code(s): --- Professional --- 83602, PT, Colonoscopy, flexible; with removal of tumor(s), polyp(s), or other lesion(s) by snare technique Diagnosis Code(s): --- Professional --- Z12.11, Encounter for screening for malignant neoplasm of colon K64.2, Third degree hemorrhoids D12.2, Benign neoplasm of ascending colon K57.30, Diverticulosis of large intestine without perforation or abscess without bleeding CPT copyright 2021 [employer]. All rights reserved. The codes documented in this report are preliminary and upon per assessment nurse review may be revised to meet current compliance requirements. MD Maria Ines Patiño MD 12/22/2024 8:44:55 AM This report has been signed electronically. Number of Addenda: 0 Note Initiated On: 12/22/2024 8:03 AM 12/22/24 0844 Date _ Maria Ines Mckoy MD Cosigner Signature: Date (if indicated) CC: Dr. Marlo Pollard, DO; Dr. Maria Ines Mckoy MD ~ Date Dictated: 12/22/24802 Date Transcribed: Take Away Attendant: TR Signed [facility]05-28-2025 Procedure note [facility] Medical Records Department [address] [place] [address] Operative Report - CC Letter MR#: [id number] Acct: [id number] Name: MARLO ADAMSON Rep #:[id number] : 1960 64 From: Maria Ines Mckoy MD PCP: Dr. Marlo Pollard, DO Status:REG [facility] 12/22/2024 Marlo Pollard [address] [place] [address] [place] [address] Re : Colonoscopy procedure for Marlo Adamson Dear Dr. Pollard This procedure was performed on Friday, December 22, 2024. My impressions and recommendations [...] signed electronically. 12/22/24844 Date _ Maria Ines Mckoy MD Cosigner Signature: Date (if indicated) CC: Dr. Marlo Pollard, DO; Dr. Maria Ines Mckoy MD ~ Date Dictated: 12/22/24802 Date Transcribed: Take Away Attendant: TR Signed [facility]05-28-2025 Consult note [facility] Medical Records Department [address] [place] [address] Anesthesia Postop Eval I 12/22/2442 MR#: [id number] Acct: [id number] Name: MARLO ADAMSON Rep #:[id number] : 1960 64 From: Joseph Hu PCP: Dr. Marlo Pollard, DO Status:REG SDC Y Race: C Location: [address] Anesthesia: Postop Eval I Current Vital Signs [...] document: Postop Eval 1 completed: Yes 12/22/24842 > Date _ Joseph Roy Signature: Date CC: ~ Signed [facility]05-28-2025 Consult note [facility] Medical Records Department [address] [place] [address] Pre-Anesthesia Evaluation 12/22/24720 MR#: [id number] Acct: [id number] Name: MARLO ADAMSON Rodrigo Rep #:[id number] : 1960 64 From: Yuly Champagne PCP: Dr. Marlo Pollard, DO Status:REG SDC Y Race: C Location: [place] [address] ASA Classification* ASA Classification ASA Classification: 3 [...] Procedure(s): COLONOSCOPY Anesthesia History Anesthesia History - sole rougher: Anesthesia History - sole rougher Hx Hospitalization Yes: 10/2024 FLU/DIALYSIS 12/22/24 07:09 [...] take am of surgery PONV PONV - sole rougher: PONV - sole rougher Female No 12/21/24 09:34 HX of Motion [...] 12/22/24 06:33 Respiratory Assessment Respiratory Assessment - sole rougher: Respiratory Tract Infection Hx - sole rougher Hx Respiratory Tract Infection No 12/22/24 07:09 STOP Sleep Apnea STOP Sleep Apnea - sole rougher: STOP Sleep Apnea - sole rougher Hx Hypertension Yes: FAIRLY CONTROLLED WITH 12/22/24 [...] Tobacco Use History Tobacco Use History - sole rougher: Tobacco Use History - sole rougher Tobacco Use Smoking Status Current every day smoker 12/22/24 07:09 Hx Tobacco Use Yes 12/21/24 09:34 Years Smoking Packs Smoked per Day Smoking Cessation Date was within the last 15 years Hx Smoking Cessation Date 12/21/24 09:34 Hx Smoking Cessation Counseling Hematologic Medial History Hematologic Hx - sole rougher: 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 Hx of Blood Transfusion No 12/21/24 09:34 [...] confused, unrespo /Reproduction History /Reproductive History - sole rougher: /Reproductive Hx- sole rougher Hx Now No 12/22/24 07:09 Gestational Age [...] hydrocortisone 2.5 % topical cream 1 applic ID QD-BID PRN hemorrhoids 10/13/24 12/21/24 Rx with [...] Yuly Roy Signature: Date CC: ~ Signed [facility]05-28-2025 History and physical note [facility] Medical Records Department [address] [facility] [place] [address] History & Physical Exam 12/22/24707 MR#: [id number] Acct: [id number] Name: MARLO ADAMSON Rep #:[id number] : 1960 64 From: Maria Ines Mckoy MD PCP: Dr. Marlo Pollard, DO Status:[facility] Location: [place] [address] HPI - General General Date of Service: [...] [facility] will [facility] to get that record. Patient has never had a colonoscopy, denies any family history of colon cancer. [facility] Medical History (Updated 12/22/24 @ 07:14 by [...] hydrocortisone 2.5 % topical cream 1 applic ID QD-BID PRN hemorrhoids 10/13/24 12/21/24 Rx with [...] ACHE Discharge Is Pt Admitted From a Alf, or a Fpc: No After D/C, Where Do you Plan [...] complete colonoscopy requiring barium enema. 12/22/24 0717 Cosigner Signature (if applicable): CC: Dr. Marlo Pollard, DO; Dr. Maria Ines Mckoy MD~ Signed [facility]05-28-2025 [facility] Medical Records Department [address] [place] [address] History Physical Exam 12/22/24 0708 MR#: [id number] Acct: [id number] Name: MARLO ADAMSON Rep #: [id number] : 1960 64 From: Maria Ines Mckoy MD PCP: Dr. Marlo Pollard DO Status:[facility] Location: [place] [address] HPI - General General Date of Service: [...] states he did have a CT at [facility] sometime in the past we will try to get that record. Patient has never had a colonoscopy, denies any family history of colon cancer. [facility] Medical History (Updated 12/22/24 @ 07:14 by [...] hydrocortisone 2.5 % topical cream 1 applic ID QD-BID PRN hemorrhoi ds 10/13/24 12/21/24 Rx [...] of cardiac catheterization Hist (more content not included)...[facility]04-08-2025 Discharge summary Author Himanshu Almaguer [facility] Note Date/Time November 02, 2024 11:3 2am [facility] Medical Records Department [address] [place] [address] Discharge Summary 11/02/24 1124 MR#: [id number] Acct: [id number] Name: JUAN DIEGOMARLO Rodrigo Rep #:[id number] : 1960 64 From: Himanshu Almaguer DO PCP: Dr. Marlo Pollard DO Status:ADM IN Location: [place] [address] Providers Date of Admission: 10/31/24 Primary Care Physician: Dr. Marlo Pollard DO Consultations 10/31/24 04:11 Consult: Nephrology Routine Consulting Provider: Ying Sihrley Reason for Consult: ESRD on HD EMERGENT [...] Pt had issue with dialysis line today. [place] that the line clotted off due to [...] cream with perineal applicator (Proctozone-HC) 1 applic ID QD-BID PRN hemorrhoids #30 grams 10/13/24 oxycodone [...] 10/31/24 17:11 RMA (Rec: 10/31/24 17:11 RMA [id number]) Nutrition Malnutrition Evidence of Yes Malnutrition Exists [...] 73.4 H, Lymph % (Auto) 12.6 L, Rhea % (Auto) 9.8, Eos % (Auto) 1.7, [...] % cream with perineal applicator 1 applic ID QD-BID PRN (Reason: hemorrhoids) Qty: 30 0RF [...] Self Care Charges/Coding Visit Charges Inpatient E&M: 73903 Disch Hosp >30min 11/02/24 1132 <Electronically signed by Himanshu Almaguer DO> Cosigner Signature (if applicable): CC: Dr. Himanshu Almaguer DO; Dr. Marlo Pollard DO~ Signed [facility] Work Phone: 1(708) 159-399604-08-2025 Progress note Author Himanshu Almaguer [facility] Note Date/Time November 02, 2024 11:2 4am [facility] Medical Records Department [address] [place] [address] Progress Note - Hospitalist 11/02/24 0711 MR#: [id number] Acct: [id number] Name: MARLO ADAMSON Rep #:[id number] : 1960 64 From: Himanshu Almaguer DO PCP: Dr. Marlo Pollard DO Status:ADM IN [place] [facility] [place]368-8 Reason for Visit Reason for Visit: Diagnoses [...] 10/31/24 17:11 RMA (Rec: 10/31/24 17:11 RMA [id number]) Nutrition Malnutrition Evidence of Yes Malnutrition Exists [...] Pt had issue with dialysis line today. [place] that the line clotted off due to no heparinization. No need for fistulagram at this time. DW Dr. Shirley who is going to try to get him heparin for home dialysis. He may also try to get him a fistulagram as outpt. VTE prophylaxis: SQ heparin. 11/02/24 1124 <Electronically signed by Himanshu Almaguer DO> Cosigner Signature (if applicable): CC: ~ Signed [facility] Work Phone: 1(357) 329-925604-08-2025 Consult note Author Maranda Bustamante [facility] Note Date/Time November 02, 2024 11:0 0am [facility] Medical Records Department [address] [place] [address] Consultation - Nephrology 11/01/24 1205 MR#: [id number] Acct: [id number] Name: MARLO ADAMSON Rep #:[id number] : 1960 64 From: Maranda WORTHINGTON PCP: Dr. Marlo Pollard, DO Status:ADM IN Location: [place] HW609-5 Assessment & Plan Assessment/Plan (1) ESRD (end [...] was poor and he has lost weight. [facility] Medical History (Updated 11/01/24 @ 12:07 by [...] hydrocortisone 2.5 % topical cream 1 applic ID QD-BID PRN hemorrhoids 10/13/24 Unknown Rx with [...] 10/31/24 17:11 RMA (Rec: 10/31/24 17:11 RMA [id number]) Nutrition Malnutrition Evidence of Yes Malnutrition Exists [...] 78.8 H, Lymph % (Auto) 11.3 L, Rhea % (Auto) 7.5, Eos % (Auto) 1.1, [...] MD> CC: Dr. Marlo Pollard, ~ Signed [facility] Work Phone: 1(281) 367-793204-08-2025 Progress note [facility] Medical Records Department [address] [place] [address] Progress Note - Nephrology 11/02/24 1216 MR#: [id number] Acct: [id number] Name: MARLO ADAMSON Rep #:[id number] : 1960 64 From: Ying alfaro MD PCP: Dr. Marlo Pollard, Status:ADM IN Location: [place] [address]1 Subjective Subjective no new complaints Objective Data [...] 10/31/24 17:11 RMA (Rec: 10/31/24 17:11 RMA [id number]) Nutrition Malnutrition Evidence of Yes Malnutrition Exists [...] 73.4 H, Lymph % (Auto) 12.6 L, Rhea % (Auto) 9.8, Eos % (Auto) 1.7, [...] ok until last 15 min or so. héctor hospitalist 11/02/24 1219 Cosigner Signature (if applicable): CC: ~ Signed [facility]04-08-2025 Discharge summary [facility] Medical Records Department [address] [place] [address] Discharge Summary 11/02/24 1124 MR#: [id number] Acct: [id number] Name: MARLO ADAMSON Rep #:[id number] : 1960 64 From: Himanshu Almaguer DO PCP: Dr. Marlo Pollard DO Status:ADM IN Location: [place] [address] Providers Date of Admission: 10/31/24 Primary Care [...] Pt had issue with dialysis line today. [place] that the line clotted off due to [...] cream with perineal applicator (Proctozone-HC) 1 applic ID QD-BID PRN hemorrhoids #30 grams 10/13/24 oxycodone [...] 10/31/24 17:11 RMA (Rec: 10/31/24 17:11 RMA [id number]) Nutrition Malnutrition Evidence of Yes Malnutrition Exists [...] 73.4 H, Lymph % (Auto) 12.6 L, Rhea % (Auto) 9.8, Eos % (Auto) 1.7, [...] % cream with perineal applicator 1 applic ID QD-BID PRN (Reason: hemorrhoids) Qty: 30 0RF [...] Self Care Charges/Coding Visit Charges Inpatient E&M: 72375 Disch Hosp >30min 11/02/24 1132 Cosigner Signature (if applicable): CC: Dr. Himanshu Almaguer DO; Dr. Marlo Pollard DO~ Signed [facility]04-08-2025 [facility] Medical Records Department [address] [place] [address] Discharge Summary 11/02/24 1124 MR#: [id number] Acct: [id number] Name: MARLO ADAMSON Rep #: [id number] : 1960 64 From: Himanshu Almaguer DO PCP: Dr. Marlo Pollard DO Status:ADM IN Location: [place] [address] Providers Date of Admission: 10/31/24 Primary Care [...] Pt had issue with dialysis line today. [place] that the line clotted off due to [...] cream with perineal applicator (Proctozone-HC) 1 applic ID QD-BID PRN hemorrhoids #30 grams 10/13/24 oxycodone [...] 10/31/24 17:11 RMA (Rec: 10/31/24 17:11 RMA [id number]) Nutrition Malnutrition Evidence of Yes Malnutrition Exists [...] 73.4 H, Lymph % (Auto) 12.6 L, Rhea % (Auto) 9.8, Eos % (Auto) 1.7, [...] Sputum, Expectorated/Coughed Resp (more content not included)... [facility]04-08-2025 Progress note [facility] Medical Records Department [address] [place] [address] Progress Note - Hospitalist 11/02/24710 MR#: [id number] Acct: [id number] Name: MARLO ADAMSON Rodrigo Rep #:[id number] : 1960 64 From: Himanshu Almaguer DO PCP: Dr. Marlo Pollard, DO Status:ADM IN Location: MS3 MD342-1 Reason for Visit Reason for Visit: Diagnoses [...] 10/31/24 17:11 RMA (Rec: 10/31/24 17:11 RMA [id number]) Nutrition Malnutrition Evidence of Yes Malnutrition Exists [...] Pt had issue with dialysis line today. [place] that the line clotted off due to no heparinization. No need for fistulagram at this time. DW Dr. Shirley who is going to try to get him heparin for home dialysis. He may also try to get him a fistulagram as outpt. VTE prophylaxis: SQ heparin. 11/02/24 1124 Cosigner Signature (if applicable): CC: ~ Signed [facility]04-08-2025 Consult note [facility] Medical Records Department [address] [place] [address] Consultation - Nephrology 11/01/24 1205 MR#: [id number] Acct: [id number] Name: MARLO ADAMSON Rep #:[id number] : 1960 64 From: Maranda mcmahan PELLET PREPARATION OPERATOR-C PCP: Dr. Malro Pollard, DO Status:ADM [place] [facility] [place] Assessment & Plan Assessment/Plan (1) ESRD (end [...] was poor and he has lost weight. [facility] Medical History (Updated 11/01/24 @ 12:07 by [...] hydrocortisone 2.5 % topical cream 1 applic ID QD-BID PRN hemorrhoids 10/13/24 Unknown Rx with [...] 10/31/24 17:11 RMA (Rec: 10/31/24 17:11 RMA [id number]) Nutrition Malnutrition Evidence of Yes Malnutrition Exists [...] 78.8 H, Lymph % (Auto) 11.3 L, Rhea % (Auto) 7.5, Eos % (Auto) 1.1, [...] applicable): 11/02/24 1100 CC: Dr. Marlo Pollard, ~ Signed [facility]04-07-2025 Consult note Author Fritz Moya [facility] Note Date/Time November 01, 2024 3:19 pm [facility] Medical Records Department [address] [place] [address] Pharmacokinetic/Renal -Consult 11/01/24 1310 MR#: [id number] Acct: [id number] Name: MARLO ADAMSON Rep #:[id number] : 1960 64 From: Fritz Moya PCP: Dr. Marlo Pollard, Status:ADM IN Y Location: [place] [address] Consult Antibiotic Management Pharmacy has been consulted [...] Fritz simon> Date _ Fritz Moya 11/01/24 1743 <Electronically signed by Himanshu Almaguer DO> Cosigner Signature (if applicable): Date Himanshu Almaguer DO CC: ~ Signed [facility] Work Phone: 1(965) 176-282304-07-2025 Progress note Author Himanshu Almaguer [facility] Note Date/Time November 01, 2024 1:51 pm [facility] Medical Records Department [address] [place] [address] Progress Note - Hospitalist 11/01/24 0750 MR#: [id number] Acct: [id number] Name: MARLO ADAMSON Rep #:[id number] : 1960 64 From: Himanshu Almaguer DO PCP: Dr. Marlo Pollard, Status:ADM IN [facility] Reason for Visit Reason for Visit: Diagnoses [...] 10/31/24 17:11 RMA (Rec: 10/31/24 17:11 RMA [id number]) Nutrition Malnutrition Evidence of Yes Malnutrition Exists [...] 84.6 H, Lymph % (Auto) 6.7 L, Rhea % (Auto) 7.3, Eos % (Auto) 0.1, [...] 78.8 H, Lymph % (Auto) 11.3 L, Rhea % (Auto) 7.5, Eos % (Auto) 1.1, [...] Pt had issue with dialysis line today. [place] that the line clotted off due to no heparinization. No need for fistulagram at this time. VTE prophylaxis: SQ heparin. Charges/Coding Visit Charges Inpatient E&M: 16603 Subs Hosp L2 11/01/24 0098 <Electronically signed by Himanshu Almaguer DO> Cosigner Signature (if applicable): CC: ~ Signed [facility] Work Phone: 1(734) 224-600104-07-2025 Consult note [facility] Medical Records Department [address] [place] [address] Pharmacokinetic/Renal -Consult 11/01/24 1310 MR#: [id number] Acct: [id number] Name: MARLO ADAMSON Rep #:[id number] : 1960 64 From: Fritz Moya PCP: Dr. Marlo Pollard, DO Status:ADM IN Y [place] [facility] [place]005-2 Consult Antibiotic Management Pharmacy has been consulted [...] Date Himanshu Almaguer DO CC: ~ Signed [facility]04-07-2025 Progress note [facility] Medical Records Department [address] [place] [address] Progress Note - Hospitalist 11/01/24 0750 MR#: [id number] Acct: [id number] Name: MARLO ADAMSON Rep #:[id number] : 1960 64 From: Himanshu Almaguer DO PCP: Dr. Marlo Pollard, DO Status:ADM IN [facility] Reason for Visit Reason for Visit: Diagnoses [...] 10/31/24 17:11 RMA (Rec: 10/31/24 17:11 RMA [id number]) Nutrition Malnutrition Evidence of Yes Malnutrition Exists [...] 84.6 H, Lymph % (Auto) 6.7 L, Rhea % (Auto) 7.3, Eos % (Auto) 0.1, [...] 78.8 H, Lymph % (Auto) 11.3 L, Rhea % (Auto) 7.5, Eos % (Auto) 1.1, [...] Pt had issue with dialysis line today. [place] that the line clotted off due to no heparinization. No need for fistulagram at this time. VTE prophylaxis: SQ heparin. Charges/Coding Visit Charges Inpatient E&M: 18795 Subs Hosp L2 11/01/24 1351 Cosigner Signature (if applicable): CC: ~ Signed [facility]04-06-2025 Progress note Author Chirag Lucero [facility] Note Date/Time October 31, 2024 7:03 pm [facility] Medical Records Department [address] [place] [address] Progress Note - Hospitalist 10/31/24 190 MR#: [id number] Acct: [id number] Name: MARLO ADAMSON Rep #:[id number] : 1960 64 From: Chirag Dixon PCP: Dr. Marlo Pollard, DO Status:ADM IN [facility] Hospitalist Note 64-year-old gentleman was admitted with [...] nasal screen. Denies prior history of MRSA. School Child Care Attendant consulted. On 3 L of oxygen. Did not have dialysis nurse today but I do not see an urgent need of dialysis today can be dialyzed early in the morning. Discussed with Dr. Shirley Visit Charges Inpatient E&M: 09307 Subs Hosp L1 10/31/24 1228 <Electronically signed [...] Cosigner Signature (if applicable): cc: ~* Signed [facility] Work Phone: 1(183) 197-605704-06-2025 Progress note [facility] Medical Records Department [address] [place] [address] Progress Note - Hospitalist 10/31/241901 MR#: [id number] Acct: [id number] Name: MARLO ADAMSON Rodrigo Rep #:[id number] : 1960 64 From: Chirag Dixon PCP: Dr. Marlo Pollard, DO Status:ADM IN Location: MS3 PE736-0 Hospitalist Note 64-year-old gentleman was admitted with [...] nasal screen. Denies prior history of MRSA. School Child Care Attendant consulted. On 3 L of oxygen. Did not have dialysis nurse today but I do not see an urgent need of dialysis today can be dialyzed early in the morning. Discussed with Dr. Shirley Visit Charges Inpatient E&M: 77765 Subs Hosp L1 10/31/24 1228 Cosigner Signature [...] Cosigner Signature (if applicable): cc: ~* Signed [facility]04-06-2025 Progress note Author Ying Shirley [facility] Note Date/Time October 31, 2024 11:5 6am [facility] Medical Records Department [address] [place] [address] Progress Note 10/31/24 1148 MR#: [id number] Acct: [id number] Name: MARLO ADAMSON Rep #:[id number] : 1960 64 From: Ying alfaro MD PCP: Dr. Marlo Pollard, DO Status:ADM IN Location: MS3 RJ480-4 Progress Note patient is known to me. [...] transferred out. 10/31/24 1151 <Electronically signed by iYng Shirley MD> Ying Shirley MD Cosigner Signature [...] Signature (if applicable): Date cc: ~* Signed [facility] Work Phone: 1(289) 491-620004-06-2025 Progress note [facility] Medical Records Department [address] [place] [address] Progress Note 10/31/24 1148 MR#: [id number] Acct: [id number] Name: MARLO ADAMSON Rep #:[id number] : 1960 64 From: Ying alfaro MD PCP: Dr. Marlo Pollard, DO Status:ADM IN Location: MS3 NL075-2 Progress Note patient is known to me. [...] Signature (if applicable): Date cc: ~* Signed [facility]04-06-2025 History and physical note Author Elidia Cunningham [facility] Note Date/Time October 31, 2024 4:10 am [facility] Medical Records Department [address] [place] [address] H&P Exam - Hospitalist 10/31/24 0347 MR#: [id number] Acct: [id number] Name: MARLO ADAMSON Rep #:[id number] : 1960 64 From: Elidia Cunningham MD PCP: Dr. Marlo Pollard, DO Status:ADM IN [place] [facility] [place] SW207-7 HPI - General General Date of Admission: 10/31/24 Date of Service: 10/31/24 Chief Complaint: Cough, congestion, dyspnea, recent outpatient abx. HPI Narrative The patient is a 64-year-old male with past medical history M w/ PMHx: PCKD w/ ESRD (T-F), CAD s/p PCI, HTN, HLD, GERD, Tobacco use, Hx VTE (DVT) who presents to the [facility] ED on 10/31/24 with congestion, fatigue, [...] the ED patient ministered IV Zosyn therapy. [facility] Medical History (Updated 10/31/24 @ 04:07 by [...] hydrocortisone 2.5 % topical cream 1 applic ID QD-BID PRN hemorrhoids 10/13/24 Unknown Rx with [...] (Auto) 85.8 H, Lymph % (Auto) 5.3 L,Rhea % (Auto) 7.1, Eos % (Auto) 0.1, [...] pleural effusion. Mild elevation right [facility] Assessment & Plan Assessment/Plan (1) Hypoxemia: (2) Pneumonia: (3) Failure of outpatient treatment: PLAN: Plan The patient is a 64-year-old male with past medical history M w/ PMHx: PCKD w/ ESRD, CAD s/p PCI, HTN, HLD, GERD, Tobacco use, Hx VTE (DVT) who presents to [facility] ED on 10/31/24 with congestion, fatigue, [...] Patient does not have healthcare power of case folder or living will in place but he notes that he would want his ex- Nabila Triplett to be his medical decision-maker if necessary. Discussed CODE status at length including difference between FULL code, DNR-CCA and DNR-CC status. Following discussions about the differences in these status, requested Full Code status. Advanced CarePlanning Face to Face Time: 16 minutes. Charges/Coding Visit Charges Inpatient E&M: 67340 Init Hosp L3 Procedures Hospitalists Procedures: 43783 Advncd Care Plan 30 Min 10/31/24 0410 <Electronically signed by Elidia Cunningham MD> Cosigner Signature (if applicable): CC: Dr. Elidia Cunningham MD; Dr. Marlo Pollard, ~ Signed [facility] Work Phone: 1([phone]) [phone] Discharge summary Author Jimy Jarquin [facility] Note Date/Time October 31, 2024 3:46 am [facility] Medical Records Department [address] [place] [address] Emergency Department Summary 10/31/24 MR#: [id number] Acct: [id number] Name: MARLO ADAMSON Rep #:[id number] : 1960 64 From: Jimy Jarquin MD [...] for this and has no other complaints. [facility] Medical History Wears dentures Alcohol use Marijuana [...] hydrocortisone 2.5 % topical cream 1 applic ID QD-BID PRN hemorrhoids 10/13/24 Unknown Rx with [...] 85.8 H Lymph % (Auto) 5.3 L Rhea % (Auto) 7.1 Eos % (Auto) 0.1 [...] pleural effusion. Mild elevation right Reading [facility] Discussion w/another healthcare provider: Hospitalist Discharge [...] % cream with perineal applicator 1 applic ID QD-BID PRN (Reason: hemorrhoids) Qty: 30 0RF [...] DO [Primary Care Provider] - Print Language: German Disposition Disposition: Acute Care [facility] What to do if you have Problems For any increased pain, shortness of breath, bleeding, nausea or vomiting, chestpain, or any unexpected problems, contact your Primary Care Provider. Call [employer] [facility] ([phone]) or report to the closest Emergency Room. Call 911 if necessary. 10/31/24345 <Electronically signed by Jimy Jarquin MD> Cosigner Signature (if applicable): CC: Dr. Marlo Pollard, DO ~ Signed [facility] Work Phone: 1([phone]) 726-339404-06-2025 History and physical note [facility] Medical Records Department [address] [place], [place] [address] [place] [address] H&P Exam - Hospitalist 10/31/24 0347 MR#: [id number] Acct: [id number] Name: MARLO ADAMSON Rep #:[id number] : 1960 64 From: Elidia Cunningham MD PCP: Dr. Marlo Pollard, Status:ADM IN [place] [facility] [place]042-4 HPI - General General Date of Admission: 10/31/24 Date of Service: 10/31/24 Chief Complaint: Cough, congestion, dyspnea, recent outpatient abx. HPI Narrative The patient is a 64-year-old male with past medical history M w/ PMHx: PCKD w/ ESRD (T-F), CAD s/p PCI, HTN, HLD, GERD, Tobacco use, Hx VTE (DVT) who presents to the [facility] ED on 10/31/24 with congestion, fatigue, [...] the ED patient ministered IV Zosyn therapy. [facility] Medical History (Updated 10/31/24 @ 04:07 by [...] hydrocortisone 2.5 % topical cream 1 applic ID QD-BID PRN hemorrhoids 10/13/24 Unknown Rx with [...] (Auto) 85.8 H, Lymph % (Auto) 5.3 L,Rhea % (Auto) 7.1, Eos % (Auto) 0.1, [...] use, Hx VTE (DVT) who presents to [facility] ED on 10/31/24 with congestion, fatigue, [...] Patient does not have healthcare power of case folder or living will in place but henotes that he would want his ex- Nabila Triplett to be his medical decision-maker if necessary. Discussed CODE status at length including difference between FULL code, DNR-CCA and DNR-CC status. Following discussions about the differences in these status, requested Full Code status. Advanced CarePlanning Face to Face Time: 16 minutes. Charges/Coding Visit Charges Inpatient E&M: 56640 Init Hosp L3 Procedures Hospitalists Procedures: 94725 Advncd Care Plan 30 Min 10/31/24 0410 Cosigner Signature (if applicable): CC: Dr. Elidia Cunningham MD; Dr. Marlo Pollard, ~ Signed [facility]04-06-2025 Discharge summary [facility] Medical Records Department [address] [place] [address] Emergency Department Summary 10/31/24 MR#: [id number] Acct: [id number] Name: MARLO ADAMSON Rep #:[id number] : 1960 64 From: Jimy Jarquin MD [...] for this and has no other complaints. [facility] Medical History Wears dentures Alcohol use Marijuana [...] hydrocortisone 2.5 % topical cream 1 applic ID QD-BID PRN hemorrhoids 10/13/24 Unknown Rx with [...] 85.8 H Lymph % (Auto) 5.3 L Rhea % (Auto) 7.1 Eos % (Auto) 0.1 [...] pleural effusion. Mild elevation right Reading [facility] Management Discussion w/another healthcare provider: Hospitalist Discharge [...] % cream with perineal applicator 1 applic ID QD-BID PRN (Reason: hemorrhoids) Qty: 30 0RF [...] DO [Primary Care Provider] - Print Language: German Disposition Disposition: Acute Care [facility] What to do if you have Problems For any increased pain, shortness of breath, bleeding, nausea or vomiting, chestpain, or any unexpected problems, contact your Primary Care Provider. Call [facility] ([phone]) or report tothe closest Emergency Room. Call 911 if necessary. 10/31/24 0346 Cosigner Signature (if applicable): CC: Dr. Marlo Pollard DO ~ Signed [facility]04-06-2025 Radiology Diagnostic study note [facility] Imaging Services [address] [place] [address] Chest PA and Lateral MR#: [id number] Acct: [id number] Name: MARLO ADAMSON Rep #: [id number] : 1960 M 64 From: Dominga Graf DO PCP: Dr. Marlo Pollard DO Status: PRE ER Study:Chest PA and Lateral Date of Exam: 10/31/24 Exam# [id number] Ordering Dr: Juliane Jarquin MD PROCEDURE: PA [...] effusion. Mild elevation right Reading Location: [facility] CC: Dr. Jimy Jarquin MD; Dr. Marlo Pollard DO ~ Take Away Attendant: Signed [facility]03-19-2025 Evaluation note* Diagnosis Onset Date Resolution Status Admit Date Anal fistula acute October 13, 2024 1:52pm Hemorrhoids, internal, with bleeding acute October 13, 2024 1:52pm Screening for colon cancer acute October 13, 2024 1:52pm Failure of outpatient treatment acut e October 31, 2024 3:49am Hypoxemia acute October 31 3:49am Pneumonia acute October 31 3:49am [facility] Work Phone: 1(303) 806-352603-19-2025 Evaluation note* Diagnosis Onset Date Resolution Status [...] 31 3:49am Pneumonia acute October 31 3:49am [facility] Work Phone: 1(146) [phone] Evaluation note* Diagnosis Onset Date Resolution Status [...] colon cancer resolved December 22, 2024 6:11am [facility] Work Phone: 1(283) 439-438703-19-2025 Evaluation note* Diagnosis Onset Date Resolution Status Admit Date Anal fistula chronic October 13, 2024 1:52pm Hemorrhoids, internal, with bleeding chronic October 13, 2024 1:52pm Screening for colon cancer resolved October 13, 2024 1:52pm Failure of outpatient treatment reso lved October 31, 2024 3:49am Hypoxemia resolved October 31 3:49am Pneumonia resolved October 31 3:49am ESRD (end stage renal disease) inact fabricio October 31, 2024 3:49am Anal fistula chronic December 22 6:11am Hemorrhoids, internal, with bleeding chronic December 22, 2024 6 :11am Screening for colon cancer resolved December 22, 2024 6:11am Rectal bleeding acute January 30, 2025 4:30am S/P hemorrhoidectomy acute January 30, 2025 4:30am [facility] Work Phone: 1(576) 965-672511-09-2021 NoteHNO ID: [id number] Author: Casey Castañeda Population Health Navigator Service: [...] future healthcare decisions with a power of case folder, living will, or advance directives? No. Please bring a copy to your next appointment or email to Referrals: N/A Message Sent to Practice: NO Navigation Signature: Casey Castañeda Population Health Navigator June 05, 2021 2:09 [facility]11-09-2021 NotePatient Outreach (NETNAV) MARLO ADAMSON ([id number]) 1960 M Date Time Provider Department 06/05/21 CASEY CASTAÑEDA During your visit today, we recorded the following information about you: Caseymoshe Castañeda Population Health Navigator 06/05/2021 2:09 PM [...] future healthcare decisions with a power of case folder, living will, or advance directives? No. Please bring a copy to your next appointment or email to [email or web address] Referrals: N/A Message Sent to Practice: NO [...] and abscess of unspecified site [L03*01/29/2007 12/15/2018 [place] NOS EPISODE CARE UNSPEC [I21.9] 02/03/2007 Hematuria [...] GFR 15-29*06/17/2016 Encounter Status:Closed by [facility] CASEY MUNROE on 06/05/21[facility]08-31-2021 NoteHNO ID: [id number] Author: Mary Casillas MA Service: ? Author Type: Costume Rental Clerk Type: Progress Notes Filed: 03/27/2021 1:05 PM [...] future healthcare decisions with a power of case folder, living will, or advance directives? Referrals: N/A Message Sent to Practice: NO Navigation Signature: Mary Casillas MA March 27, 2021 1:01 [facility]08-31-2021 NotePatient Outreach (AMBCMG) MARLO ADAMSON ([id number]) 1960 M Date Time Provider Department 03/27/21 MARY CASILLAS During your visit today, we recorded the following information about you: Mary Casillas MA 03/27/2021 1:05 PM Signed POPULATION HEALTH NAVIGATION OUTREACH Action/ [place] Health Maintenance items due: ANNUAL MEDICARE WELLNESS [...] future healthcare decisions with a power of case folder, living will, or advance directives? Referrals: N/A Message Sent to Practice: NO Navigation Signature: Mary Casillas MA March 27, 2021 1:01 PM Allergies As of Date: 03/27/2021 Noted Allergy Reaction LIPITOR (ATORVASTATIN CALCIUM) 05/15/2010 14 - Other: See Comments Comments: myalgia Date Reviewed: 07/04/2020 Reviewed by: Lexus Mcneil Ma - Fully Assessed Reason for Visit: Population Health Navigation Outreach [3910] Cmt: ACO DEBORAH PCSA Prescriptions as of [...] and abscess of unspecified site [L03*01/29/2007 12/15/2018 [place] NOS EPISODE CARE UNSPEC [I21.9] 02/03/2007 Hematuria [...] 15-29*06/17/2016 Encounter Status:Closed by MARY CASILLAS on 03/27/21[facility]07-06-2021 NoteHNO ID: [id number] Author: Mariah Johnson Ma Service: ? Author Type: ? Type: Progress Notes Filed: 01/30/2021 3:08 PM Note Text: POPULATION HEALTH NAVIGATION OUTREACH Action/FYI Left message for patient to call back regarding scheduling/care gaps. Letter Sent. Letter mailed 01/30/21 - Navigation Signature: Mariah Johnson Ma January 30, 2021 2:31 [facility]06-29-2021 NotePatient Outreach (NETNAV) MARLO ADAMSON ([id number]) 1960 M Date Time Provider Department 01/23/21 MARIAH JOHNSON) DENIA During your visit today, we recorded [...] future healthcare decisions with a power of case folder, living will, or advance directives? No. Are you interested in a follow-up phone call or visit with a doctor for more information about planning for future health care decisions? No Referrals: N/A Message Sent to Practice: NO Navigation Signature: Mariah Johnson Vinh January 23, 2021 10:36 AM Mariah Johnson Vinh 01/30/2021 2:33 PM Addendum POPULATION HEALTH NAVIGATION [...] and abscess of unspecified site [L03*01/29/2007 12/15/2018 [place] NOS EPISODE CARE UNSPEC [I21.9] 02/03/2007 Hematuria [...] Encounter Status:Closed by MARIAH JOHNSON MA on 01/30/21[facility]06-29-2021 NoteHNO ID: [id number] Author: Mariha Johnson Ma Service: ? Author Type: ? [...] future healthcare decisions with a power of case folder, living will, or advance directives? No. Are you interested in a follow-up phone call or visit with a doctor for more information about planning for future health care decisions? No Referrals: N/A Message Sent to Practice: NO Navigation Signature: Mariah Elizabeth Justice January 23, 2021 10:36 [facility]03-24-2021 NoteHNO ID: [id number] Author: Radha Casillas [facility] Service: ? Author Type: ? Type: Progress Notes Filed: 10/18/2020 4:45 PM Note Text: Contacted patient he declined, mailed colonoscopy letter. -Radha Casillas [facility]03-23-2021 NoteHNO ID: [id number] Author: Dave Viera (Rn) NISHA Martin Service: ? Author Type: Registered Nurse Type: Progress Notes Filed: 10/18/2020 4:45 PM Note Text: Pt overdue for screening colonoscopy. Pt needs office visit prior due to medical history. Please call pt and schedule with PELLET PREPARATION OPERATOR or PA. Dave Martin, [facility]-2021 NotePatient Outreach (FAMPWS) MARLO ADAMSON ([id number]) 1960 M Date Time Provider Department 10/17/20 DAVE MARTIN (NISHA)CHUCK During your visit today, we recorded the following information about you: Dave Martin RN, RN 10/18/2020 4:45 PM Signed Pt overdue for screening colonoscopy. Pt needs office visit prior due to medical history. Please call pt and schedule with PELLET PREPARATION OPERATOR or PA. NISHA Mesa Pss 10/18/2020 4:45 PM Signed Contacted patient he declined, mailed colonoscopy letter. -Radha Casillas Pss Allergies As of Date: 10/17/2020 Noted Allergy [...] and abscess of unspecified site [L03*01/29/2007 12/15/2018 [place] NOS EPISODE CARE UNSPEC [I21.9] 02/03/2007 Hematuria [...] 15-29*06/17/2016 Encounter Status:Closed by RADHA RENTERIA on 10/18/20[facility]12-08-2020 History of Present illness Narrative* Fransisca Vicente (Rt), Valdo - 07/04/2020 5:40 PM EST Radiology Service [...] 04, 2020 5:39 PM [facility] Consult note Author Joseph Hu [facility] Note Date/Time December 22, 2024 8:43a [facility] Medical Records Department [address] [place] [address] Anesthesia Postop Eval I 12/22/2442 MR#: [id number] Acct: [id number] Name: MARLO ADAMSON Rep #:[id number] : 1960 64 From: Joseph Hu PCP: Dr. Marlo Pollard, DO Status:REG SDC Y Race: C Location: [place] [address] Anesthesia: Postop Eval I Current Vital Signs [...] Postop Eval 1 completed: Yes 12/22/24 0843 <Electronically signed by Joseph Hu > Date _ Joseph Roy Signature: Date CC: ~ Signed [facility] Work Phone: Consult note Author Rosy Daley [facility] Note Date/Time January 21, 2025 2:30 pm [facility] Medical Records Department [address] [place] [address] Anesthesia Postop Eval I 01/21/25 1429 MR#: [id number] Acct: [id number] Name: MARLO ADAMSON Rep #:[id number] : 1960 64 From: Rosy Garcia PCP: Dr. Marlo Pollard, DO Status:REG [facility] Y Race: C Location: [place] [address] Anesthesia: Postop Eval I Current Vital Signs [...] by Rosy Lackey RNA> Date _ Rosy Larkinigner Signature: Date CC: ~ Signed [facility] Work Phone: Consult note Author Greg Cortes [facility] Note Date/Time January 30, 2025 5:25a m [facility] Medical Records Department [address] [place] [address] Pre-Anesthesia Evaluation 01/30/25 0524 MR#: [id number] Acct: [id number] Name: MARLO ADAMSON Rep #:[id number] : 1960 64 From: Greg Cortes MD PCP: Dr. Marlo Pollard, DO Status:REG SDC Y Race: C Location: [place] [address] ASA Classification* ASA Classification ASA Classification: 3 and E Assessment & Plan Anesthesia* Anesthesia Assessment Anesthesia [...] risk assessments. Anesthesia Type Anesthesia Type: General Anesthesia Focused Assessment* Temperature: 98.5 F Pulse Rate: 84 Blood Pressure: 118/80 Respiratory Rate: 16 Pulse Ox: 96 Airway Assessment Mouth opens: >3 cm Mallampati Score: II Labs Anesthesia Preop lab: CBC WBC 10.8 K/mm3 (4.4-11.0) 01/30/25 02:17 01/30/25 RBC 4.59 M/mm3 (4.6-6.2) L 01/30/25 02:17 01/30/25 Hgb 14.4 g/dL (13.0-16.5) 01/30/25 02:17 01/30/25 Hct 42.2 % (40-54) 01/30/25 02:17 01/30/25 Plt Count 181 K/mm3 (150-450) 01/30/25 02:17 01/30/25 CHEMISTRY Potassium 4.4 mmol/L (3.3-5.1) 01/30/25 02:17 01/30/25 Sodium 132 mmol/L (133-145) L 01/30/25 02:17 01/30/25 Magnesium 1.8 mg/dL (1.5-2.2) 10/31/24 02:12 10/31/24 Phosphorus 3.3 mg/dL (2.7-4.5) 10/31/24 02:12 10/31/24 BUN 41 mg/dL (4-19) H 01/30/25 02:17 01/30/25 Creatinine 8.10 mg/dL (0.70-1.20) H* 01/30/25 02:17 01/30 Glucose 131 mg/dL (70-99) H 01/30/25 02:17 01/30/25 POC Glucose 139 mg/dL (70-110) H 11/16/19 09:54 11/16/19 TSH 1.17 uIU/mL (0.358-3.74) 04/01/17 12:59 COAG PT 13.6 SECONDS (11.7-14.9) 01/30/25 02:17 Pre-Assessment Diagnosis/Proposed Procedure Planned Operative Procedure(s): bleeding hemmroid Anesthesia History Anesthesia History - sole rougher: Anesthesia History - sole rougher Hx Hospitalization Yes: 11-19 infection 01/07/25 09:36 Any Problems With Anesthesia No 01/30/25 03:30 Cholinesterase deficiency No 01/07/25 09:36 You/Your Family Experience No 01/07/25 09:36 fever (hyperthermia) with Relationship Recent Exposure to Contagious No 01/21/25 10:25 Disease Does patient have nerve No 01/30/25 03:30 stimulator Patient instructed to have device shut off --Does patient have Pacemaker or ICD? When Was Last Pacemaker Check QUESTION #4 FULL TEXT: You/Your Family Experience fever (hyperthermia) with Anesthesia Last Oral Intake Last Oral intake: Last Oral Intake NPO since Meds taken in AM with sips of water? Meds patient instructed to take am of surgery PONV PONV - sole rougher: PONV - sole rougher Female HX of Motion Sickness HX of N/V After Surgery Non-Smoker Duration of Surgery greater than 60 minutes Number of Risk Factors PONV Score Height & Weight Height & Weight: Anesthesia: Height & Weight Height 5 ft 10 in 01/30/25 03:30 Weight: 74 kg 01/30/25 03:30 Body Mass Index (BMI) 23.3 01/30/25 03:30 Respiratory Assessment Respiratory Assessment - sole rougher: Respiratory Tract Infection Hx - sole rougher Hx Respiratory Tract Infection No 01/07/25 09:36 STOP Sleep Apnea STOP Sleep Apnea - sole rougher: STOP Sleep Apnea - sole rougher Hx Hypertension Yes 01/30/25 03:30 Hx Sleep Apnea No 01/30/25 03:30 CPAP BIPAP Do you snore loudly (louder No 01/30/25 03:30 than talking or can be heard Do you often feel tired/ Yes 01/30/25 03:30 fatigued/ sleepy during daytime? Has anyone observed you stop No 01/30/25 03:30 breathing during sleep? STOP Results Positive 01/30/25 03:30 QUESTION #5 FULL TEXT : Do you snore loudly (louder than talking or can be heard through closed doors)? 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 Specify any problems Hx of Preganancy in last 3 Months Nurse Filling Out Transfusion & Questions: Date: Time: Patient unable to answer at this time (ie. confused, unrespo /Reproduction History /Reproductive History - sole rougher: /Reproductive Hx- sole rougher Hx Now Gestational Age (in weeks): EDC: Hx Hx Para Hx Section SAB No 01/07/25 09:36 Active Medications Active Medications: Current Medications Generic Name Dose Route Start Last Admin Trade Name Freq PRN Reason Stop Dose Admin Cefotetan Disodium 2 gm/ 100 mls @ 200 mls/hr 01/30/25 05:14 Sodium Chloride IV 01/30/25 05:43 INTRAOP ONE [facility] Medical History History of hiatal hernia Wears glasses History [...] PO DAILY 05/29/21 0 01/21/25 History release Held on 01/30/25. Instructions: surgery cholecalciferol (vitamin D3) 125 125 mcg PO DAILY 09/1701/20/25 History mcg (5,000 unit) capsule metoprolol tartrate 25 mg tablet 25 mg PO BID 05/29/21 01/21/25 History pravastatin 40 mg tablet 40 mg PO QHS 05/29/21 History Hydrocortisone 2.5%/lidocaine 5% #30 ea 10/13/24 Unkno wn Rx suppository (cmpd) (hydrocortisone 2.5%/lidocaine 5% suppository (compound)) hydrocortisone 2.5 % topical cream 1 applic ID QD-BID PRN hemorrhoids 10/13/24 01/20/25 Rx with [...] atorvastatin (From Lipitor) AdvReac MUSCLE ACHE Verified 01/30/25 05:15 Family History Father Cancer abdominal tumor--unsure type Brother Heart disease Sister Brain mass Mother Brain aneurysm Surgical History S/P hemorrhoidectomy Hx of colonoscopy with polypectomy History of [...] and no additional complaints, except as documented. 01/30/25524 <Electronically signed by Greg Cortes MD > Date _ Greg Cortes MD Cosigner Signature: Date CC: ~ Signed [facility] Work Phone: Discharge summary Author Jimy Jarquin [facility] Note Date/Time October 31, 2024 3:46 am [facility] Medical Records Department [facility] [place] [address] Emergency Department Summary 10/31/24 MR#: [id number] Acct: [id number] Name: MARLO ADAMSON Rep #:[id number] : 1960 64 From: Jimy Jarquin MD [...] for this and has no other complaints. [facility] Medical History Wears dentures Alcohol use Marijuana [...] hydrocortisone 2.5 % topical cream 1 applic ID QD-BID PRN hemorrhoids 10/13/24 Unknown Rx with [...] 85.8 H Lymph % (Auto) 5.3 L Rhea % (Auto) 7.1 Eos % (Auto) 0.1 [...] pleural effusion. Mild elevation right Reading Location: [facility] Management Discussion w/another healthcare provider: Hospitalist Discharge [...] % cream with perineal applicator 1 applic ID QD-BID PRN (Reason: hemorrhoids) Qty: 30 0RF [...] DO [Primary Care Provider] - Print Language: German Disposition Disposition: Acute Care Hospital [facility] What to do if you have Problems For any increased pain, shortness of breath, bleeding, nausea or vomiting, chestpain, or any unexpected problems, contact your Primary Care Provider. Call [facility] ([phone]) or report to the closest Emergency Room. Call 911 if necessary. 10/31/24 0346 <Electronically signed by Jimy Jarquin MD> Cosigner Signature (if applicable): CC: Dr. Marlo Pollard DO ~ Signed [facility] Work Phone: Discharge summary Author Herson Victoria [facility] Note Date/Time January 30, 2025 4:51a m [facility] Medical Records Department [address] [place] [address] Emergency Department Summary 01/30/25 MR#: [id number] Acct: [id number] Name: JUAN DIEGOMARLO Rodrigo Rep #:[id number] : 1960 64 From: Herson Wallace PCP: Dr. Marlo Pollard DO Status:[facility] Location: [address] History of Present Illness Chief Complaint: GI Bleed [facility] Medical History (Updated 01/30/25 @ 04:[address] Herson Victoria DO) History of hiatal hernia Wears glasses History [...] PO DAILY 05/29/21 0 01/21/25 History release Held on 01/30/25. Instructions: surgery cholecalciferol (vitamin D3) 125 125 mcg PO DAILY 09/1701/20/25 History mcg (5,000 unit) capsule metoprolol tartrate 25 mg tablet 25 mg PO BID 05/29/21 01/21/25 History pravastatin 40 mg tablet 40 mg PO QHS 05/29/21 History Hydrocortisone 2.5%/lidocaine 5% #30 ea 10/13/24 Unkno wn Rx suppository (cmpd) (hydrocortisone 2.5%/lidocaine 5% suppository (compound)) hydrocortisone 2.5 % topical cream 1 applic ID QD-BID PRN hemorrhoids 10/13/24 01/20/25 Rx with [...] mass Mother Brain aneurysm Surgical History (Updated 01/30/25 @ 04:[address] Fili Nj MD) S/P hemorrhoidectomy Hx of colonoscopy with polypectomy History of [...] former substance use type: does not use EXAM Physical Exam Const Vital Signs: 01/30/25 02:13 01/30/25 03:00 01/30/25 03:30 Temperature 98.6 F 98.5 F Temperature Source Oral Oral Pulse Rate 84 84 81 Respiratory Rate 20 H 18 16 Blood Pressure 117/96 H 121/77 H 132/98 H Blood Pressure Mean 103 91 109 Blood Pressure Source Monitor Blood Pressure Position Right Lateral Blood Pressure Location Left Arm Pulse Ox 96 96 96 Oxygen Delivery Method Room Air Room Air Room Air 01/30/25 03:30 01/30/25 04:00 Temperature 98.5 F Temperature Source Pulse Rate 81 77 Respiratory Rate 16 18 Blood Pressure 132/98 H 119/78 Blood Pressure Mean 109 91 Blood Pressure Source Blood Pressure Position Blood Pressure Location Pulse Ox 95 94 Oxygen Delivery Method Room Air MDM MDM MDM Narrative Medical decision making narrative: HISTORY OF PRESENT ILLNESS: Chief complaint: Rectal bleeding 64-year-old male history of ESRD, hyperlipidemia, CAD status post [place] cardiac catheterization and CABG, on aspirin but no other blood thinners presents with severe rectal bleeding status post hemorrhoidectomy presents with severe rectal bleeding. Notes has had bleeding since the operation however today got severelyworse after vomiting and then using the bathroom. Notes heavy bleeding. Stateshe can feel flowing internally. Denies chest pain or shortness of breath. Denies taking blood thinners. Notes gets dialysis 4 times a week. He notes hislast dialysis was on Friday. States he missed it yesterday secondary to bleeding and not feeling well. REVIEW OF SYSTEMS: Pertinent positives: Rectal bleeding Pertinent negatives: Chest pain, shortness of breath PHYSICAL EXAM: Nursing triage notes reviewed, Vital signs reviewed Constitutional: please see [facility] HENT: MMM Eyes: Pupils equal round and reactive to light, Extraocular muscles intact Neck: No stridor, no JVD, full neck ROM Lungs: Clear to auscultation, No wheezing or rales. No increased work of breathing, no conversational dyspnea, no accessory muscle use, no nasal flaring. No respiratory distress noted Heart: Regular rate and rhythm, No murmurs, No rubs and No gallops, 2+ distal pulses (radial, femoral, posterior tibial) in all extremities Abdomen: Soft, there is no tenderness, rigidity, rebound or guarding, no obviousperitoneal signs, no palpable pulsatile abdominal masses, no auscultated abdominal bruit : No CVAT Extremities: No edema, left upper extremity fistula with palpable thrill, no overlying erythema Rectal: Performed teacher ballet in room and verbal consent the patient showed findings as below Neuro: Intact, no focal deficits Skin: No pallor MEDICAL DECISION MAKING: Chief Complaint: please see [facility] External records reviewed: Underwent hemorrhoidectomy and excision of left gluteal sinus tract on 01/21/2025 Factors affecting care: As per [facility] Social determinants of health: none History obtained from others: EMS, general surgery on-call (Dr. Nj) Consults: Dr. Nj [facility] Narrative: The patient was initially hemodynamically stable, afebrile and nontoxic- appearing. Exam with a large amount of blood noted on sheets as well as underwear. Large clot noted initially approximately 6 x 6 cm. Rectal exam performed with teacher ballet and verbal consent of the patient showed active bleeding oozing out of the rectum. There is a small approximate 1 cm defect theleft gluteus likely fistulous tract also has oozing blood. Let impregnated gauze was placed to achieve initial hemostasis. There is no obvious site to suture or repair externally. Initial exam consistent with likely need of internal repair. I considered the following differential diagnosis: Internal bleeding, postop bleeding, severe anemia I obtained lab workup to further determine if the patient was suffering from a life-threatening etiology. Initially packed the site with Surgicel and let. ALL IMAGES (IF OBTAINED) HAVE BEEN PERSONALLY REVIEWED AND INTERPRETED BY MYSELF. CBC with no leukocytosis, actually improved anemia, no thrombocytopenia Coagulation studies within normal limits BMP with ESRD, no significant electrolyte abnormalities At 2:30 AM discussed the case with general surgery on-call who recommended packing the area and assessing for signs of bleeding. Recommended calling them back in 1 hour to assess neck step is either emergent OR versus urgent OR. At 3:[address] Nj who notes he would be in shortly. At 3:50 AM nurse reported patient continues to bleed despite lack, Surgicel and pressure dressing. At 4:[address] Nj arrived and recommended the patient go to the OR. The patient and/or family, caregivers express understanding. The patient and/orfamily, caregivers agrees with the plan. Shared decision making: I will have a discussion with the patient and or visitors regarding risk/benefits of further testing or admission. They will be made aware of of the risk/benefits inherent in this decision they will be given the opportunity to voice understanding. Total critical care time today provided was at least 35 minutes. This excludes separately billable procedures. Critical care time (if documented) is secondary to the patient having high probability of clinically significant/life threatening deterioration in the patient's condition which required my urgent intervention. Impression: 1. Rectal bleed 2. Postop bleed 4. History of ESRD Dispo: Admit to OR This note was generated with [employer] dictation software. It may contain incorrectwords, spelling, and punctuation that were not noted in review of the chart prior to signing. Lab Data Labs: Laboratory Results - last 24 hr 01/30/25 02:17 WBC 10.8 RBC 4.59 L Hgb 14.4 Hct 42.2 MCV 91.9 MCH 31.4 MCHC 34.1 RDW Std Deviation 48.0 H RDW Coeff of Fito 14.3 Plt Count 181 MPV 9.1 Immature Gran % (Auto) 0.500 Neut % (Auto) 76.0 H Lymph % (Auto) 12.0 L Rhea % (Auto) 8.5 Eos % (Auto) 2.6 Baso % (Auto) 0.4 Absolute Neuts (auto) 8.2 H Absolute Lymphs (auto) 1.29 Nucleated RBC % 0 PT 13.6 INR 1.0 APTT 30.6 Sodium 132 L Potassium 4.4 Chloride 92 L Carbon Dioxide 25.4 Anion Gap 15 BUN 41 H Creatinine 8.10 H* Estim Creat Clear Calc 9.51 L* Est GFR (MDRD) Non-Af 7 L BUN/Creatinine Ratio 5.0 L Glucose 131 H Calcium 9.7 Blood Type O POSITIVE Antibody Screen NEGATIVE Crossmatch See Detail Discharge Plan Dx/Rx/DC Orders Clinical Impression: Rectal bleeding Disposition Disposition: Acute Care Hospital [facility] What to do if you have Problems For any increased pain, shortness of breath, bleeding, nausea or vomiting, chestpain, or any unexpected problems, contact your Primary Care Provider. Call [facility] ([phone]) or report to the closest Emergency Room. Call 911 if necessary. 01/30/25 0451 <Electronically signed by Herson Victoria DO> Cosigner Signature (if applicable): CC: Dr. Marlo Pollard DO ~ Signed [facility] Work Phone: Evaluation note* Diagnosis Onset Date Resolution Status Chronic renal failure, stage 4 (severe) chronic [facility] Work Phone: Evaluation noteNo assessment information available [facility] Work Phone: Evaluation note* Diagnosis Suspected 2019 novel coronavirus infection [facility] Elidia Cunningham [facility] Note Date/Time October 31, 2024 4:10 am [facility] Medical Records Department [address] [place] [address] H&P Exam - Hospitalist 10/31/24 0347 MR#: [id number] Acct: [id number] Name: JUAN DIEGOMARLO Rodrigo Rep #:[id number] : 1960 64 From: Elidia Cunningham MD PCP: Dr. Marlo Pollard DO Status:ADM IN [place] [facility] HPI - General General Date of Admission: 10/31/24 Date of Service: 10/31/24 Chief Complaint: Cough, congestion, dyspnea, recent outpatient abx. HPI Narrative The patient is a 64-year-old male with past medical history M w/ PMHx: PCKD w/ ESRD (T-F), CAD s/p PCI, HTN, HLD, GERD, Tobacco use, Hx VTE (DVT) who presents to the [facility] ED on 10/31/24 with congestion, fatigue, [...] the ED patient ministered IV Zosyn therapy. [facility] Medical History (Updated 10/31/24 @ 04:07 by [...] hydrocortisone 2.5 % topical cream 1 applic ID QD-BID PRN hemorrhoids 10/13/24 Unknown Rx with [...] (Auto) 85.8 H, Lymph % (Auto) 5.3 L,Rhea % (Auto) 7.1, Eos % (Auto) 0.1, [...] use, Hx VTE (DVT) who presents to [facility] ED on 10/31/24 with congestion, fatigue, [...] Patient does not have healthcare power of case folder or living will in place but he notes that he would want his ex- Nabila Triplett to be his medical decision-maker if necessary. Discussed CODE status at length including difference between FULL code, DNR-CCA and DNR-CC status. Following discussions about the differences in these status, requested Full Code status. [facility] Face to Face Time: 16 minutes. Charges/Coding Visit Charges Inpatient E&M: 13777 Init Hosp L3 Procedures Hospitalists Procedures: 97064 Advncd Care Plan 30 Min 10/31/24 0410 <Electronically signed by Elidia Cunningham MD> Cosigner Signature (if applicable): CC: Dr. Elidia Cunningham MD; Dr. Marlo Pollard, ~ Signed [facility] Work Phone: History and physical note Author Fili Nj [facility] Note Date/Time January 30, 2025 4:51a m [facility] Medical Records Department [address] [place] [address] History & Physical Exam 01/30/25 0439 MR#: [id number] Acct: [id number] Name: MARLO ADAMSON Rep #:[id number] : 1960 64 From: Fili Dixon PCP: Dr. Marlo Pollard DO Status:[facility] Location: [place] [address] HPI - General General Date of Service: 01/30/25 HPI Narrative MARLO ADAMSON, is a 64 M who presents to [facility] on direction from me after calling the physician on-call line stating that he had concerns that he had disrupted something from his previous surgery. He is status post excisional hemorrhoidectomy with Dr. Mckoy on 01/21/2025. He shares that 3 days ago he began vomiting and became concerned that he had ripped something. He states that 2 days ago he vomited without any further concerns but then yesterday vomited and eliminated a sensation of pressure as well as some of his operative dressing and thereafter began to feel streaming blood. He notes that he has been constipated since surgery and attempted to call into the surgery office to notify them of this concern and was advised to take Dulcolax. He reports that he followed through with this direction but it did not yield a bowel movement. Emergency department emergency medicine attempted to visualize the bleeding and apply a compressive dressing but patient continued to experience streaming bloodso I was contacted for further evaluation. Patient's laboratories were drawn and hemoglobin is presently at 14.4 and coags are within normal limits. BUN is modestly elevated but not unexpected given patient's ESRD status. Patient dialyzes at home and administers heparin during each session. [facility] Medical History (Updated 01/30/25 @ 04:[address] Herson Victoria, ) History of hiatal hernia Wears glasses History [...] PO DAILY 05/29/21 0 01/21/25 History release Held on 01/30/25. Instructions: surgery cholecalciferol (vitamin D3) 125 125 mcg PO DAILY 09/1701/20/25 History mcg (5,000 unit) capsule metoprolol tartrate 25 mg tablet 25 mg PO BID 05/29/21 01/21/25 History pravastatin 40 mg tablet 40 mg PO QHS 05/29/21 History Hydrocortisone 2.5%/lidocaine 5% #30 ea 10/13/24 Unkno wn Rx suppository (cmpd) (hydrocortisone 2.5%/lidocaine 5% suppository (compound)) hydrocortisone 2.5 % topical cream 1 applic ID QD-BID PRN hemorrhoids 10/13/24 01/20/25 Rx with [...] mass Mother Brain aneurysm Surgical History (Updated 01/30/25 @ 04:[address] Flii Nj MD) S/P hemorrhoidectomy Hx of colonoscopy with polypectomy History of [...] former substance use type: does not use Vital Signs Vital Signs Vital Signs: 01/30/25 02:13 01/30/25 03:00 01/30/25 03:30 Temperature 98.6 F 98.5 F Temperature Source Oral Oral Pulse Rate 84 84 81 Respiratory Rate 20 H 18 16 Blood Pressure 117/96 H 121/77 H 132/98 H Blood Pressure Mean 103 91 109 Blood Pressure Source Monitor Blood Pressure Position Right Lateral Blood Pressure Location Left Arm Pulse Ox 96 96 96 Oxygen Delivery Method Room Air Room Air Room Air 01/30/25 03:30 01/30/25 04:00 Temperature 98.5 F Temperature Source Pulse Rate 81 77 Respiratory Rate 16 18 Blood Pressure 132/98 H 119/78 Blood Pressure Mean 109 91 Blood Pressure Source Blood Pressure Position Blood Pressure Location Pulse Ox 95 94 Oxygen Delivery Method Room Air Weight Weight: 163 lb 2.273 oz Body Mass Index (BMI) 23.3 Physical Exam Const alert Constitutional Narrative: Mild distress and anxious General Appearance: cooperative Resp normal respiratory effort GI GI Narrative: Streaming blood per rectum. Appears to be venous source. Not slowed with application of pressure directly to the anoderm. 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 Results Lab / Micro Data 01/30/25 02:17 01/30/25 02:17 Labs: Laboratory Results - last 24 hr 01/30/25 02:17: WBC 10.8, RBC 4.59 L, Hgb 14.4, Hct 42.2, MCV 91.9, MCH 31.4, MCHC 34.1, RDW Std Deviation 48.0 H, RDW Coeff of Fito 14.3, Plt Count 181, MPV 9.1, Immature Gran % (Auto) 0.500, Neut % (Auto) 76.0 H, Lymph % (Auto) 12.0 L, Rhea % (Auto) 8.5, Eos % (Auto) 2.6, Baso % (Auto) 0.4, Absolute Neuts (auto) 8.2 H, Absolute Lymphs (auto) 1.29, Nucleated RBC % 0, PT 13.6, INR 1.0, APTT 30.6, Sodium 132 L, Potassium 4.4, Chloride 92 L, Carbon Dioxide 25.4, Anion Gap15, BUN 41 H, Creatinine 8.10 H*, Estim Creat Clear Calc 9.51 L*, Est GFR (MDRD)Non-Af 7 L, BUN/Creatinine Ratio 5.0 L, Glucose 131 H, Calcium 9.7, Blood Type OPOSITIVE, Antibody Screen NEGATIVE, Crossmatch See Detail Assessment & Plan Assessment/Plan (1) Rectal bleeding: PLAN: Patient is 64-year-old male 9 days status post excisional hemorrhoidectomynow with post surgical bleeding. Bleeding has been somewhat brisk since an episode of vomitus earlier today. Patient's vitals have been maintained. Hemoglobin is within normal limits as are coags. However, patient is a dialysispatient and makes routine use of heparin as well as is slightly uremic. I am unable to clearly visualize the source on exam both due to the bleeding as well as patient's discomfort. Therefore, I am recommending emergent operative evaluation with plans for transanal ligation. For the interim anesthesia and the operative team were notified. Patient has blood on hold to the OR. I did place a tightly rolled Surgifoam coated in viscous lidocaine to try to tamponadethe bleeding until we are able to explore further in the operating room. Consents were obtained for anorectal exam under anesthesia. Patient to be admitted postoperatively for ongoing monitoring. Outside of the above patient will have to be watched closely for constipation and will need to be started on a bowel regimen. He was advised of this concern as well. Fili Nj MD General Surgery Endocrine Surgery Pager: [facility] [address] [place] [address], [facility], [address] [place] [address] Office: [phone] (2) S/P hemorrhoidectomy: Charges/Coding Visit Charges Inpatient E&M: 52667 Init Hosp L2 01/30/25 3820 <Electronically signed by Fili Nj MD> Cosigner Signature (if applicable): CC: Dr. Marlo Pollard, DO; Dr. Fili Nj MD~ Signed [facility] Work Phone: Progress note Author Ying Shirley [facility] Note Date/Time November 02, 2024 12:1 9pm [facility] Medical Records Department [address] [place] [address] Progress Note - Nephrology 11/02/24 1216 MR#: [id number] Acct: [id number] Name: MARLO ADAMSON Rep #:[id number] : 1960 64 From: Ying alfaro MD PCP: Dr. Marlo Pollard DO Status:ADM IN Location: [place] [address] Subjective Subjective no new complaints Objective Data [...] 10/31/24 17:11 RMA (Rec: 10/31/24 17:11 RMA [id number]) Nutrition Malnutrition Evidence of Yes Malnutrition Exists [...] 73.4 H, Lymph % (Auto) 12.6 L, Rhea % (Auto) 9.8, Eos % (Auto) 1.7, [...] 15 min or so. dw hospitalist 11/02/24 1218 <Electronically signed by Ying Shirley MD> Cosigner Signature (if applicable): CC: ~ Signed [facility] Work Phone: Reason for referral (narrative)No reason for referral information [facility] Work Phone: Summary Purpose Family History Relationship Condition Age at Onset Recorded Date/T hilary father Malignant neoplasm Unknown Relationship Condition Age at Onset Recorded Date/T hilary father Malignant neoplasm Unknown brother Cardiac disease Unknown sister Mass of brain Unknown mother Cerebral aneurysm Unknown Advance Directives Advance Directive Response Recorded Date/ Time Living Will Yes June 06, 021 2:53pm Power of Gas Line Servicer Yes June 06, 2021 2:53pm Advance Directive Response Recorded Date/ Time Living Will Yes June 06, 021 1:53pm Power of Gas Line Servicer Yes June 06, 2021 1:53pm Advance Directive Response Recorded Date/ Time Living Will No October 31, 2024 2:04am Do you have a Healthcare Power of Gas Line Servicer? No October 31, 2024 2:04am Advance Directive Response Recorded Date/ Time Living Will No October 31, 2024 4:07am Do you have a Healthcare Power of Gas Line Servicer? No October 31, 2024 4:07am Advance Directive Response Recorded Date/ Time Living Will No October 31, 2024 4:07am Do you have a Healthcare Power of Gas Line Servicer? No October 31, 2024 4:07am Do you have a Healthcare Power of Gas Line Servicer? Yes December 21, 2024 9:34am Advance Directive Response Recorded Date/ Time Living Will No October 31, 2024 4:07am Do you have a Healthcare Power of Gas Line Servicer? No October 31, 2024 4:07am Do you have a Healthcare Power of Gas Line Servicer? No January 07, 2025 9:36am Do you have a Healthcare Power of Gas Line Servicer? Yes December 21, 2024 9:34am Advance Directive Response Recorded Date/ Time Living Will No October 31, 2024 4:07am Do you have a Healthcare Power of Gas Line Servicer? No October 31, 2024 4:07am Do you have a Healthcare Power of Gas Line Servicer? No January 07, 2025 9:36am Do you have a Healthcare Power of Gas Line Servicer? No January 30, 2025 2:19am Do you have a Healthcare Power of Gas Line Servicer? Yes December 21, 2024 9:34am Chief Complaint [...] 2024 1:5 2pm Hemorrhoids, internal, with bleeding [facility] 2024 1:52pm Screening for colon cancer October [...] 2024 1:5 2pm Hemorrhoids, internal, with bleeding [facility] 2024 1:52pm Screening for colon cancer October 13, 2 025 1:52pm ESRD (end stage renal disease) October 3:49am Failure of outpatient treatment October 3:49am Hypoxemia October 31, 2024 3:49 am Pneumonia October 31, 2024 3:49 am Reason for Visit Admit Date Anal fistula October 13, 2024 1:5 2pm Hemorrhoids, internal, with bleeding [facility] 2024 1:52pm Screening for colon cancer October [...] a nd possibl January 21, 2025 10:04am Chief Complaint Admit Date CYST ON BUTTOCK October 13, 2024 1:5 2pm HYPOXIA, PNA October 31, 2024 3:49 am HYPOXIA, PNA November 01, 2024 7:50 am HYPOXIA, PNA November 02, 2024 7:11 am Exam Under Anesthesia hemorrhoidectomy a nd possibl January 21, 2025 9:48am Exam Under Anesthesia hemorrhoidectomy a nd possibl January 21, 2025 10:04am ANORECTAL EXAM UNDER ANES January 30, 2025 4:30am ANORECTAL EXAM UNDER ANES January 30, 2025 4:39am Reason for Visit Admit Date Anal fistula October 13, 2024 1:5 2pm Hemorrhoids, internal, with bleeding [facility] 2024 1:52pm Screening for colon cancer October 13, 2 025 1:52pm Failure of outpatient treatment October 3:49am Hypoxemia October 31, 2024 3:49 am Pneumonia October 31, 2024 3:49 am ESRD (end stage renal disease) October 3:49am Anal fistula December 22, 2024 6:11a m Hemorrhoids, internal, with bleeding December 22, 2024 6:11am Screening for colon cancer December 22 6:11am Rectal bleeding January 30, 2025 4:30a m S/P hemorrhoidectomy January 30, 2025 4:30 am Additional Source Comments (unrecognized sect ion and content) No Status Records FoundNo Status Records Found INFORMATION SOURCE (unrecogn ized section and content) DATE CREATED AUTHOR 09/13/2021 [facility] DATE CREATED AUTHOR AUTHOR'S ORGANIZ ATION 01/24/2025 [facility] Goals (unrecognized section and content) [...] MD Attending Provider, Referri ng Provider Active Authorization Coordinator Relationship Specialty Start Date End Date To [...] Provider Active S tart: January 21, 2025 Team Status: Active Member Role/Relationship Status Dates Dr. Marlo Pollard DO Primary Care Provider Active Start: January 30, 2025 Dr. Herson Victoria DO Emergency Provider Active Start: January 30, 2025 Dr. Fili Nj MD Attending Provider Active Start: January 30, 2025 Dr. Fili Nj MD Referring Provider Active Start: January 30, 2025 Team Status: Active Member Role/Relationship Status Dates Dr. Marlo Pollard DO Primary Care Provider Active Start: January 30, 2025 Dr. Herson Victoria DO Emergency Provider Active Start: January 30, 2025 Dr. Fili Nj MD Attending Provider Active Start: January 30, 2025 Dr. Fili Nj MD Referring Provider Active Start: January 30, 2025 Dr. Fili Nj MD Other Provider Active Sta rt: January 30, 2025 Source Comments (unrecognize d section and content) In the event this informatio n is protected by the Federal Confidentiality of Alcohol and Drug Abuse Patient Records regulations: The Federal rules restrict any use of the information to criminally investigate or prosecute any alcohol or drug abuse patient.[facility] FOR RECORDS PERTAINING TO PATIENTS WHO ARE [...] BE BASED ON THE PRIMARY CLINICAL RECORDS. [facility] [employer] provides no warranty or guarantee of the accuracy or completeness of information in this document.
[2025-01-30] MEDS: Cefotetan 2 GM in 0.9% Normal Saline (100mL MB+) 100 ML IV (05:38)
[2025-01-30] MEDS: BUPIVACAINE LIPOSOME/PF 20 ML VIAL OPERA.SITE (06:34)
--- NOTE | 2025-01-30 06:57 | PCM.OPRPT ---
Procedures Digestive 40xxx-49xxx: [address]645 Surg dx exam anorectal Operative Report (Standard) Operative Information Date of Procedure: 01/30/25 Pre-Operative Diagnosis: Postoperative bleeding following excisional hemorrhoidectomy Post-Operative Diagnosis: Postoperative bleeding following excisional hemorrhoidectomy due to mucosal dehiscence Surgery/Procedure Performed: Anorectal exam under anesthesia with suture ligation for hemostasis motorcycle police officer: Yes Visual Arts Teacher: Sam Amin Tasks completed by first aid instructor: Retracting Type of Anesthesia: General/Supplemental RN Documented Start/Stop Times: Operation Date: 01/30/25 05:45 Case Time Anesthesia Start 01/30/25 05:37 Into Room 01/30/25 05:37 Procedure Start 01/30/25 06:06 Procedure End 01/30/25 06:46 Anesthesia End 01/30/25 06:55 Out of Room 01/30/25 06:55 Into Recovery 01/30/25 06:57 Procedure Start Time: 06:06 Procedure Stop Time: 06:46 Select all DRAINS/GRAFTS/IMPLANTS that apply: None Special Medications: 20 mL of Exparel and Marcaine mixed one-to-one Estimated Blood Loss: 10 Specimen collected: No Description of surgery: After appropriate identification in the preoperative holding area the patient was brought to the operating room where he was positioned supine. He was administered preoperative antibiotics and induced with a general endotracheal anesthetic. He was then repositioned in prone jackknife taking care to pad pressure points. His buttocks were taped apart to facilitate exposure of the surgical site. His perineal area and perianal area were prepped and draped. A formal timeout was conducted to confirm the patient and the procedure to be performed. The procedure was begun with insertion of a lubricated Sree-Melendez retractor. This retractor was oriented in such a way as to expose the inner aspect of the anal canal subjacent the patient's chronic wound. I first examined the right anterior position and the area appeared well-healing with an intact suture line on the mucosal closure. There is no evidence of bleeding. There was a significant amount of stool in the rectal vault that continued to push down as we were trying to facilitate our exposure. This was manually evacuated where possible using a ringed forceps to a waiting basin. The anal canal was copiously irrigated and a then adjusted the retractor so we were now examining the left lateral position. Here I found some oozing from a small vessel. This was suture-ligated but there was still some oozing adjacent to this area. On closer inspection I found what appeared to be complete dehiscence of the patient's mucosal closure and exposed intersphincteric muscle. There appeared to be bleeding along the raw surface of the muscle. Direct pressure was applied through a lap sponge. Upon reexamination I found a second vessel that was bleeding and this too was suture-ligated with a 3-0 Vicryl. I then found an area where I could loosely reapproximate 2 edges of anal mucosa over an area of slight oozing. This reapproximation was accomplished using a running 3-0 Chromic Gut suture. However, a substantial portion of the dehiscence appeared to be unable to be closed without undue tension across the wound given retraction due to inflammatory changes with healing. Therefore this was left open. I then instilled 20 mL's of 0.25% plain bupivacaine mixed one-to-one with Exparel in a intersphincteric and pudendal nerve block. I then examined the patient's perianal wound where a fistulous track had been excised and the wound left open. This was irrigated and there did not appear to be any bleeding or significant contamination to this cavity. The anal canal was examined once more and there was no further signs of bleeding. To facilitate postoperative hemostasis, the anal canal was packed with rolled Surgifoam coated in Dibucaine ointment. Absorptive gauze was placed and mesh underwear and pulled up over this area. Case was then concluded and the patient was awakened and transferred to PACU for ongoing recovery. Surgical Findings: ? Bleeding from left lateral hemorrhoidectomy site where there had been evidence of apparent mucosal dehiscence Complications Complications: No Admit VTE Documentation VTE Mechan Device Prophylaxis: SCD's
[2025-01-30 07:04] LABS: Cholesterol 104 mg/dL (<=200); Ferritin 41 ng/mL (37-417); Low Density Lipoprotein Calc. 47 mg/dL; Triglycerides 153 mg/dL; Very Low Density Lipoprotein 31 mg/dL (5-40); cholesterol:hdl ratio screen 3.95
[2025-01-30 07:25] LABS: Iron 50 ug/dL (65-175); Iron Binding Capacity,Total 256 ug/dL (250-450); Iron Binding Capacity,Unsat 206 ug/dL (228-428)
[2025-01-30] MEDS: Pantoprazole Sodium 40 MG in 0.9% Normal Saline (100mL MB+) 100 ML 330 MG IV ×2 (07:30→21:50)
[2025-01-30] MEDS: 0.9% Normal Saline (1000mL) 1,000 ML 100 ML IV ×2 (07:45→18:02)
--- NOTE | 2025-01-30 07:46 | PN_ITS ---
Assessment & Plan Assessment/Plan (1) S/P hemorrhoidectomy: (2) Hemorrhoids, internal, with bleeding: PLAN: Plan Patient is a 64-year-old gentleman with multiple comorbidities including end- stage renal disease on dialysis, coronary artery disease hypertension who underwent anorectal exam under anesthesia with suture ligation for hemostasis following postoperative bleeding after excisional hemorrhoidectomy (performed on 01/21/2025) due to mucosal dehiscence. Procedure was performed by Dr. Nj on 01/30/2025; the hospitalist service was consulted to assist. Postop medical management. Patient has been seen and examined, initial consultation reviewed will follow.
--- OUTSIDE RECORDS SUMMARY | 2025-01-30 08:52 | XMS RPT_ITS | CCD ---
Author Organization [facility] Care Team Providers [facility] Chief Executive Officer Name Role Phone Dr. Marlo Pollard Primary Care Provider Dr. Marlo Pollard Referring Provider [phone] Marina FIORE PANel Easley Attending Provider Abiola MALONE MD, To Garcia Primary Care Provider Rubia vailable Dr. Marlo Pollard DO Primary Care Provider Dr. Marlo Pollard DO Referring Provider Dr. Maria Ines Mckoy MD Attending Provider [phone] Dr. Jimy Jarquin MD Emergency Provider Octavio [...] Leelee CESPEDES, Dr. Spann Referring Provider [phone] Marlo Pollard Referring Unavailable Marlo Pollard Primary [...] Primary Care Unavailable Latrice, Marlo Referring Unavailable Latrice, Marlo Primary Care Unavailable Robotham, Maria Ines Attending Unavailable Latrice, Marlo Primary Care Unavailable White, Elidia L Consulting Unavailable White, Elidia L Admitting Unavailable Jopperi, Himanshu Attending Unavailable Fern, Jayaprakas Consulting Unavailable Nic, Chirag Consulting Unavailable Julien KEYS, Dr. Bains Emergency Provider Ondina CESPEDES, Dr. Penn Attending Provider Ondina CESPEDES, Dr. Penn Referring Provider [phone] Ondina CESPEDES, Dr. Penn Other Provider [phone] Allergies Allergy Classification Reported Allergen(s) Allergy Type Date of Onset Reaction(s) Facility (8 sources) atorvastatin Drug Allergy 2 MUSCLE ACHE [facility] (1 source) atorvastatin Drug Allergy 0 Other: See Comments [facility] (1 source) atorvastatin Drug Allergy 5 [facility] Repository Medications Current Medications Medication Drug Class(es) [...] PO daily October 13, 2024 12:00am calcitriol 0.24830 mg oral capsule (5 sources) Vitamin D3 [...] December 21, 2024 9:32am polyethylene glycol 3350 570719 mg / potassium chloride 2970 mg / sodium bicarbonate 6740 mg / sodium chloride 5860 mg / sodium sulfate 76991 mg powder for oral solution (5 sources) [...] Coronary arteriosclerosis; Translations: [Atherosclerotic heart disease of [place] coronary artery without angina pectoris] Onset: 2 [...] Auto (Unsp spec) [#/Vol] 1.29 10*3/uL 0.83-4.51 [facility] Absolute neutrophil countOrd ered By: Herson Victoria on 01-30-2025 Neutrophils (Bld) [#/Vol] 8.2 10*3/uL High 2.0-7.7 [facility] Activated partial thrombopla stin time (aPTT) in platelet poor plasma by coagulation aOrdered By: Herson Victoria on 01-30-2025 aPTT Coag (PPP) [Time] 30.6 s 24.1-36.2 [facility] Anion gap in Serum or Plasma Ordered By: Herson Victoria on 01-30-2025 Anion gap [Moles/Vol] 15 mmol/L 5-15 [facility] Automated lymphocyte count a s percentage of total leukocytesOrdered By: Herson Victoria on 01-30-2025 Lymphocytes/100 WBC Auto (Unsp spec) 12.0 % Low 19-41 [facility] BUN/creatinine ratioOrdered By: Herson Victoria on 01-30-2025 Urea nitrogen/Creatinine [Mass ratio] 5.0 mg/mg Low 10-20 [facility] Basophil percentageOrdered B y: Herson Victoria on 01-30-2025 Basophils/100 WBC (Bld) 0.4 % 0-1 [facility] Carbon dioxide, total [Moles /volume] in Central venous bloodOrdered By: Herson Victoria on 01-30-2025 CO2 [Moles/Vol] 25.4 mmol/L 21.0-32.0 [facility] Chloride assayOrdered By: Ren Victoria on 01-30-2025 Chloride [Moles/Vol] 92 mmol/L Low 98-108 [facility] Eosinophil percentageOrdered By: Herson Victoria on 01-30-2025 Eosinophils/100 WBC (Bld) 2.6 % 0-5 [facility] Erythrocyte distribution wid th ratioOrdered By: Herson Victoria on 01-30-2025 Erythrocyte distribution width (RBC) [Ratio] 14.3 % 11.6-14.6 [facility] Erythrocyte distribution wid th standard deviationOrdered By: Herson Victoria on 01-30-2025 Erythrocyte distribution width (RBC) [Ratio] 48.0 fl High 35.1-43.9 [facility] Glomerular filtration rate ( GFR) estimation/1.73 sq m using serum, plasma, or whole bOrdered By: Herson Victoria on 01-30-2025 GFR/1.73 sq M.predicted among non-blacks MDRD (S/P/Bld) [Vol rate/Area] 7 mL/min/{1.73_m2} Low >60 [facility] Comment on above: mL/min/1.73m2 CKD-EP I Creatinine Equation (2020) Hematocrit Auto (Bld) [Volum e fraction]Ordered By: Herson Victoria on 01-30-2025 Hematocrit (Bld) [Volume fraction] 42.2 % 40-54 [facility] Hemoglobin measurementOrdere d By: Herson Victoria on 01-30-2025 Hemoglobin (Bld) [Mass/Vol] 14.4 g/dL 13.0-16.5 [facility] Immature granulocytes/100 WB C Auto (Bld)Ordered By: Herson Victoria on 01-30-2025 Immature granulocytes/100 WBC (Bld) 0.500 % 0.0-0.9 [facility] Comment on above: IG% - Immature Granu locytes (promyelocytes, myelocytes and metamyelocytes) > 1% indicates that a LEFT SHIFT is Present. International normalized rat io (INR) calculationOrdered By: Herson Victoria on 01-30-2025 INR Coag (Bld) [Relative time] 1.0 {INR} [facility] MCV (mean corpuscular volume ) determinationOrdered By: Herson Victoria on 01-30-2025 MCV (RBC) [Entitic vol] 91.9 fL 80-94 [facility] Mean corpuscular hemoglobin (MCH) determinationOrdered By: Herson Victoria on 01-30-2025 MCH (RBC) [Entitic mass] 31.4 pg 27.0-32.0 [facility] Mean corpuscular hemoglobin concentration (MCHC) determinationOrdered By: Herson Victoria on 01-30-2025 MCHC (RBC) [Mass/Vol] 34.1 g/dL 32-36 [facility] Mean platelet volume determi nationOrdered By: Herson Victoria on 01-30-2025 Platelet mean volume (Bld) [Entitic vol] 9.1 fL 6.2-12.0 [facility] Monocyte percentageOrdered B y: Herson Victoria on 01-30-2025 Monocytes/100 WBC (Bld) 8.5 % 0-10 [facility] Neutrophil percentageOrdered By: Herson Victoria on 01-30-2025 Neutrophils/100 WBC (Bld) 76.0 % High 47-70 [facility] Nucleated red blood cell per centageOrdered By: Herson Victoria on 01-30-2025 Nucleated RBC/100 WBC (Bld) [Ratio] 0 % 0-5 [facility] Platelet countOrdered By: Ren Victoria on 01-30-2025 Platelets (Bld) [#/Vol] 181 10*3/uL 150-450 [facility] Potassium measurement (mass/ volume)Ordered By: Herson Victoria on 01-30-2025 Potassium (Unsp spec) [Mass/Vol] 4.4 mmol/L 3.3-5.1 [facility] Prothrombin timeOrdered By: Herson Victoria on 01-30-2025 PT Coag (PPP) [Time] 13.6 s 11.7-14.9 [facility] RBC Auto (Bld) [#/Vol]Ordere d By: Herson Victoria on 01-30-2025 RBC (Bld) [#/Vol] 4.59 10*6/uL Low 4.6-6.2 [facility] Serum creatinine measurement (mass/volume)Ordered By: Herson Victoria on 01-30-2025 Creatinine [Mass/Vol] 8.10 mg/dL High 0.70-1.20 [facility] Comment on above: Critical Result(s) C alled at:0247 by: DINORAH JOHNSTON TO SARKIS WHATLEY Results read back by same. Serum glucose measurement (m ass/volume)Ordered By: Herson Victoria on 01-30-2025 Glucose [Mass/Vol] 131 mg/dL High 70-99 [facility] Serum or plasma calcium cuong urement (mass/volume)Ordered By: Herson Victoria on 01-30-2025 Calcium [Mass/Vol] 9.7 mg/dL 7.6-11.0 [facility] Serum or plasma urea nitroge n measurement (mass/volume)Ordered By: Herson Victoria on 01-30-2025 Urea nitrogen [Mass/Vol] 41 mg/dL High 4-19 [facility] Sodium levelOrdered By: Kaur Victoria on 01-30-2025 Sodium [Moles/Vol] 132 mmol/L Low 133-145 [facility] White blood cell (WBC) count Ordered By: Herosn Victoria on 01-30-2025 WBC (Bld) [#/Vol] 10.8 10*3/uL 4.4-11.0 [facility] MR/[id number] 01-24-2025 MR/POSTOPAN2 [facility] Medical Records Department [address] [place] [address] Anesthesia Postop Eval II 01/24/25 1004 MR#: [id number] Acct: [id number] Name: MARLO ADAMSON Rep #: [id number] : 1960 64 From: Isacc Cavanaugh MD PCP: Dr. Marlo Pollard, DO Status:[facility] Y Race: C [place] [facility] [place]esthesia Postop Eval I Sum Postop Eval Completion status Anesthesia document: Postop Eval 1 completed: Yes Anesthesia Postop Eval I Summary Anesthesia Postop Eval I Summary: Anesthesia Postop Eval I: Assessment Summary Airway patent Yes 01/21/25 14:30 CONCESSION STAND ATTENDANT.JSWI Spontaneous unlabored Yes 01/21/25 14:30 CONCESSION STAND ATTENDANT.JSWI respirations Mental status Awake 01/21/25 14:30 CONCESSION STAND ATTENDANT.JSWI nausea No 01/21/25 14:30 CONCESSION STAND ATTENDANT.JSWI Vomiting No 01/21/25 14:30 CONCESSION STAND ATTENDANT.JSWI Anesthesia Postop Eval I: Fluid Summary Crystalloid volume administer 200 01/21/25 14:30 CONCESSION STAND ATTENDANT.JSWI (ml) Colloids volume administered ( ml) Blood Product volume administered (ml) Total IV fluid infused 200 01/21/25 14:30 CONCESSION STAND ATTENDANT.JSWI Anesthesia Postop Eval I: Summary Notes Anesthesia Complication No 01/21/25 14:30 CONCESSION STAND ATTENDANT.JSWI Anesthesia Complication Comment: Post-operative progress note Anesthesia: Postop Eval II Evaluation Mental status: Awake and Calm Pain Level: 0 nausea: No Vomiting: No Complications Anesthesia Complication: No 01/24/25 1004 Date Isacc Cavanaugh MD Cosigner Signature: Date CC: Signed Normal [facility] Discharge Instructionon 12-27 Discharge Instruction [facility] Medical Records Department [address] [place] [address] Instructions for Home/Discharge Instructions 01/21/25 1417 MR#: [id number] Acct: [id number] Name: MARLO ADAMSON Rodrigo Rep #: [id number] : 1960 64 From: Maria Ines Mckoy MD PCP: Dr. Marlo Pollard, DO Status[place] [facility] Discharge Instructions Diet Discharge Diet: Light diet [...] weeks call the office for follow-up appointment [phone] Test Results: Test results from this visit will be discussed in further detail at your follow-up appointment, if applicable. Discharge Plan Admission Attending Provider: Maria Ines Mckoy Primary Care Provider: Marlo Pollard Instructions Print Language: Bruneian Discharge Orders/Prescriptions Prescriptions: Continued metoprolol tartrate 25 [...] % cream with perineal applicator 1 applic RI QD-BID PRN (Reason: hemorrhoids) Qty: 30 0RF [...] CC: Dr. Marlo Pollard DO Signed Normal [facility] MR/POSTOP.Renetta 01-21-2025 MR/POSTOP.[facility] Medical Records Department [address] [place] [address] Anesthesia Postop Eval I 01/21/25 1429 MR#: [id number] Acct: [id number] Name: MARLO ADAMSON Rodrigo Rep #: [id number] : 1960 64 From: Rosy Daley CRNA PCP: Dr. Marlo Pollard DO Status:REG [facility] Y Race: C Location: [place] [address] Anesthesia: Postop Eval I Current Vital Signs [...] completed: Yes 01/21/25 1430 Date Rosy Daley CONCESSION STAND ATTENDANT Cosigner Signature: Date CC: Signed Normal [facility] Operative Reporton 5 Operative Report [facility] Medical Records Department [address] [place] [address] Operative Report 01/21/25 1412 MR#: [id number] Acct: [id number] Name: MARLO ADAMSON Rep #: [id number] : 1960 64 From: Maria Ines Mckoy MD PCP: Dr. Marlo Pollard, Status:[facility] Location[place] [facility] Operative Report (Standard) Operative Information Date of Procedure: 01/21/25 Pre-Operative Diagnosis: Anal fistula, hemorrhoids with bleeding Post-Operative Diagnosis: Internal/external hemorrhoids with bleeding, left gluteal subcutaneous sinus tract Surgery/Procedure Performed: Hemorrhoidectomy x 2, excision of left gluteal subcutaneous sinus tract wireless team member: Yes Director Of Patient Safety: Sam Amin Tasks completed by machinist first class: Opening closing and Retracting Type of Anesthesia: [...] DO; Dr. Maria Ines Mckoy MD Signed [facility] MR/PAT.[facility] [place] 01-07-2025 MR/PAT.[facility] Medical Records Department [address] [place] [address] PAT - Anesthesia 01/07/25 1149 MR#: [id number] Acct: [id number] Name: MARLO ADAMSON Rep #: [id number] : 1960 64 From: Greg Cortes MD PCP: Dr. 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 shooter Hx Hospitalization Yes: 4- infection 01/07/25 09:36 [...] take am of surgery PONV PONV - dynamite shooter: PONV - dynamite shooter Female No 01/07/25 09:36 HX of Motion Sickness No 01/07/25 09:36 HX of N/V After Surgery No 01/07/25 09:36 Non-Smoker No 01/07/25 09:36 Duration of Surgery greater No 01/07/25 09:36 than 60 minutes Number of Risk Factors PONV Score Height Weight Height Weight: Anesthesia: Height Weight Height 5 ft 10 in 12/22/24 06:33 Respiratory Assessment Respiratory Assessment - dynamite shooter: Respiratory Tract Infection Hx - dynamite shooter Hx Respiratory Tract Infection No 01/07/25 09:36 STOP Sleep Apnea STOP Sleep Apnea - dynamite shooter: STOP Sleep Apnea - dynamite shooter Hx Hypertension Yes 01/07/25 09:36 Hx Sleep [...] Tobacco Use History Tobacco Use History - dynamite shooter: Tobacco Use History - dynamite shooter Tobacco Use Smoking Status Current every day smoker 01/07/25 09:36 Hx Tobacco Use Yes 01/07/25 09:36 Years Smoking 40 01/07/25 09:36 Packs Smoked per Day 1 01/07/25 09:36 Smoking Cessation Date was within the last 15 years Hx Smoking Cessation Date Hx Smoking Cessation No 01/07/25 09:36 Counseling Hematologic Medial History Hematologic Hx - dynamite shooter: 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 Normal [facility] Colonoscopy Reporton 025 Colonoscopy Report [facility] Medical Records Department [address] [place] [address] Colonoscopy Report MR#: [id number] Acct: [id number] Name: MARLO ADAMSON Rep #: [id number] : 1960 64 From: Maria Ines Mckoy MD PCP: Dr. Marlo Pollard, DO Status:REG [facility] Patient Name: Marlo Adamson Procedure Date: 12/22/2024 [...] pathology results. Procedure Code(s): --- Professional --- 28113, PT, Colonoscopy, flexible; with removal of tumor(s), polyp(s), or other lesion(s) by snare technique Diagnosis Code(s): --- Professional --- Z12.11, Encounter for screening for malignant neoplasm of colon K64.2, Third degree hemorrhoids D12.2, Benign neoplasm of ascending colon K57.30, Diverticulosis of large intestine without perforation or abscess without bleeding CPT copyright 2021 [employer]. All rights reserved. The codes documented in this report are preliminary and upon coal digger review may be revised to meet current compliance requirements. MD Maria Ines Patiño MD 12/22/2024 8:44:55 AM This report has been signed electronically. Number of Addenda: 0 Note Initiated On: 12/22/2024 8:03 AM 12/22/2444 Date Maria Ines Roy Signature: Date (if indicated) CC: Dr. Marlo Pollard DO; Dr. Maria Ines Mckoy MD Date Dictated: 12/22/24802 Date Transcribed: Tech Ed/Woodshop Teacher: TR Signed [facility] MR/POSTOP.[facility] [place] 12-22-2024 MR/POSTOP.[facility] Medical Records Department [address] [place] [address] Anesthesia Postop Eval I 12/22/24841 MR#: [id number] Acct: [id number] Name: MARLO ADAMSON Rep #: [id number] : 1960 64 From: Joseph Hu PCP: Dr. Marlo Pollard DO Status:REG SD[facility] Y Race: C Location: [place] [address] Anesthesia: Postop Eval I Current Vital Signs [...] Joseph Roy Signature: Date CC: Signed Normal [facility] MR/FZVOSGUH6me 12-22-2024 MR/POSTOPAN2 [facility] Medical Records Department [address] [place] [address] Anesthesia Postop Eval II 12/22/24 1001 MR#: [id number] Acct: [id number] Name: MARLO ADAMSON Rep #: [id number] : 1960 64 From: Yuly Champagne PCP: Dr. Marlo Pollard, DO Status:DEP [facility] Y Race: C Location: [place] Anesthesia Postop [...] Yuly Larkinignrenzo Signature: Date CC: Signed Normal [facility] Surgery Specimen Level Vincenzo 12-22-2024 Surgery Specimen Level IV Patient Age/Sex Location Account Attending Physician MARLO ADAMSON 64/M EN [id number] Dr. Maria Ines Mckoy MD Specimen: [id number] Received: 12/22/24 Status: MARIKA Tommie Num: [id number] Spec Type: COLON BX Subm Dr: Dr. [...] it is bisected. Submitted entirely in A1. [facility] 12-22-2024 [facility]:[address] Patient Age/Sex Location Account Attending Physician MARLO ADAMSON 64/M EN [id number] Dr. Maria Ines Mckoy MD Signed (signature on file) Dr. Jazmine Weber MD 12/27/24 1205 Normal [facility] Comment on above: Performed By: #### M 300.0888, M300.4500 #### [facility] Laboratory [address] [facility] [address] [place], [address] MR/PAT.ANEon 12-21-2024 MR/PAT.ANE [facility] Medical Records Department [address] [place] [address] PAT - Anesthesia 12/21/24 1016 MR#: [id number] Acct: [id number] Name: MARLO ADAMSON Rep #: [id number] : 1960 64 From: Isacc Cavanaugh MD PCP: Dr. Marlo Pollard, DO Status:PRE [facility] Y Race: C Location: [place] Pre-Assessment Diagnosis/Proposed Procedure Planned Operative Procedure(s): COLONOSCOPY Anesthesia History Anesthesia History - dynamite shooter: Anesthesia History - dynamite shooter Hx Hospitalization Yes: 10/2024 FLU/DIALYSIS 12/21/24 09:34 [...] take am of surgery PONV PONV - dynamite shooter: PONV - dynamite shooter Female No 12/21/24 09:34 HX of Motion Sickness No 12/21/24 09:34 HX of N/V After Surgery No 12/21/24 09:34 Non-Smoker No 12/21/24 09:34 Duration of Surgery greater No 12/21/24 09:34 than 60 minutes Number of Risk Factors PONV Score Height Weight Height Weight: Anesthesia: Height Weight Height 5 ft 10 in 10/31/24 16:55 Respiratory Assessment Respiratory Assessment - dynamite shooter: Respiratory Tract Infection Hx - dynamite shooter Hx Respiratory Tract Infection No 12/21/24 09:34 STOP Sleep Apnea STOP Sleep Apnea - dynamite shooter: STOP Sleep Apnea - dynamite shooter Hx Hypertension Yes: FAIRLY CONTROLLED WITH 12/21/24 [...] Tobacco Use History Tobacco Use History - dynamite shooter: Tobacco Use History - dynamite shooter Tobacco Use Smoking Status Current every day smoker 12/21/24 09:34 Hx Tobacco Use Yes 12/21/24 09:34 Years Smoking Packs Smoked per Day Smoking Cessation Date was within the last 15 years Hx Smoking Cessation Date 12/21/24 09:34 Hx Smoking Cessation Counseling Hematologic Medial History Hematologic Hx - dynamite shooter: 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 Normal [facility] Absolute lymphocyte countOrd ered By: Himanshu Almaguer on 11-02-2024 Lymphocytes Auto (Unsp spec) [#/Vol] 0.96 10*3/uL 0.83-4.51 [facility] Absolute neutrophil countOrd ered By: Himanshu Almaguer on 11-02-2024 Neutrophils (Bld) [#/Vol] 5.6 10*3/uL 2.0-7.7 [facility] Anion gap in Serum or Plasma Ordered By: Himanshu Almaguer on 11-02-2024 Anion gap [Moles/Vol] 14 mmol/L 5-15 [facility] Automated lymphocyte count a s percentage of total leukocytesOrdered By: Himanshu Almaguer on 11-02-2024 Lymphocytes/100 WBC Auto (Unsp spec) 12.6 % Low 19-41 [facility] BUN/creatinine ratioOrdered By: Himanshu Almaguer on 11-02-2024 Urea nitrogen/Creatinine [Mass ratio] 7.0 mg/mg Low 10-20 [facility] Basic Metabolic Profile (BMP )on 11-02-2024 BUN/CRE 7.0 RATIO Low 10- [facility] Comment on above: Performed By: #### M 300.4600, M300.4500 #### [facility] [address] [place], [address] Calcium [Mass/Vol] 8.9 mg/dL Normal 7.6-11.0 [facility] Comment on above: Performed By: #### M 300.4600, M300.4500 #### [facility] [address] [place], [address] Chloride [Moles/Vol] 98 mmol/L Normal 98-108 [facility] Comment on above: Performed By: #### M 300.4600, M300.4500 #### [facility] [address] [place], [address] CO2 [Moles/Vol] 20.8 mmol/L Low 21.0-32.0 [facility] Comment on above: Performed By: #### M 300.4600, M300.4500 #### [facility] [address] [place], [address] Creatinine [Mass/Vol] 5.94 mg/dL High 0.70-1.20 [facility] Comment on above: Performed By: #### M 300.4600, M300.4500 #### [facility] [address] [place], [address] ECRCL 12.55 ml/min Low 50-250 [facility] Comment on above: Performed By: #### M 300.4600, M300.4500 #### [facility] [address] [place], [address] GAP 14 Normal 5-15 [facility] Comment on above: Performed By: #### M 300.4600, M300.4500 #### [facility] [address] [place], [address] GFR/1.73 sq M.predicted among non-blacks MDRD (S/P/Bld) [Vol rate/Area] 10 mL/min/{1.73_m2} Low >60 [facility] Comment on above: Result Comment: mL/m in/1.73m2 CKD-EPI Creatinine Equation (2020) Performed By: #### M 300.4600, M300.4500 #### [facility] [address] [place], [address] Glucose [Mass/Vol] 88 mg/dL Normal 70-99 [facility] Comment on above: Performed By: #### M 300.4600, M300.4500 #### [facility] [address] [place], [address] Potassium [Moles/Vol] 3.8 mmol/L Normal 3.3-5.1 [facility] Comment on above: Performed By: #### M 300.4600, M300.4500 #### [facility] [address] [place], [address] Sodium [Moles/Vol] 134 mmol/L Normal 133-145 [facility] Comment on above: Performed By: #### M 300.4600, M300.4500 #### [facility] [address] [place], [address] Urea nitrogen [Mass/Vol] 41 mg/dL High 4-19 [facility] Comment on above: Performed By: #### M 300.4600, M300.4500 #### [facility] [address] [place], [address] Basophil percentageOrdered B y: Himanshu Almaguer on 11-02-2024 Basophils/100 WBC (Bld) 0.4 % 0-1 [facility] CBC W/Diff, Automatedon 04- Absolute Lymph 0.96 X10 3/uL Normal 0.83-4.51 [facility] Comment on above: Performed By: #### M 300.4600, M300.4500 #### [facility] [address] [place], [place], [id number] Absolute Neut 5.6 X10 3/uL Normal 2.0-7.7 [facility] Comment on above: Performed By: #### M 300.4600, M300.4500 #### [facility] [address] [place], [address] Basophils/100 WBC (Bld) 0.4 % Normal 0-1 [facility] Comment on above: Performed By: #### M 300.4600, M300.4500 #### [facility] [address] [place], [address] Eosinophils/100 WBC (Bld) 1.7 % Normal 0-5 [facility] Comment on above: Performed By: #### M 300.4600, M300.4500 #### [facility] [address] [place], [address] Erythrocyte distribution width (RBC) [Ratio] 13.6 % Normal 11.6-14.6 [facility] Comment on above: Performed By: #### M 300.4600, M300.4500 #### [facility] [address] [place], [address] Hematocrit (Bld) [Volume fraction] 36.8 % Low 40-54 [facility] Comment on above: Performed By: #### M 300.4600, M300.4500 #### [facility] [address] [place], [address] Hemoglobin (Bld) [Mass/Vol] 12.4 g/dL Low 13.0-16.5 [facility] Comment on above: Performed By: #### M 300.4600, M300.4500 #### [facility] [address] [place], [address] IG% 2.100 High 0.0-0.9 [facility] Comment on above: Result Comment: IG% - Immature Granulocytes (promyelocytes, myelocytes and metamyelocytes) > 1% indicates that a LEFT SHIFT is Present. Performed By: #### M 300.4600, M300.4500 #### [facility] [address] [place], [address] Lymphocytes/100 WBC (Bld) 12.6 % Low 19-41 [facility] Comment on above: Performed By: #### M 300.4600, M300.4500 #### [facility] [address] [place], [address] MCH (RBC) [Entitic mass] 31.1 pg Normal 27.0-32.0 [facility] Comment on above: Performed By: #### M 300.4600, M300.4500 #### [facility] [address] [place], [address] MCHC (RBC) [Mass/Vol] 33.7 g/dL Normal 32-36 [facility] Comment on above: Performed By: #### M 300.4600, M300.4500 #### [facility] [address] [place], [address] MCV (RBC) [Entitic vol] 92.2 fL Normal 80-94 [facility] Comment on above: Performed By: #### M 300.4600, M300.4500 #### [facility] [address] [place], [address] Monocytes/100 WBC (Bld) 9.8 % Normal 0-10 [facility] Comment on above: Performed By: #### M 300.4600, M300.4500 #### [facility] [address] [place], [address] Neutrophils/100 WBC (Bld) 73.4 % High 47-70 [facility] Comment on above: Performed By: #### M 300.4600, M300.4500 #### [facility] [address] [place], [address] Nucleated RBC (Bld) [#/Vol] 0 10*3/uL Normal 0-5 [facility] Comment on above: Performed By: #### M 300.4600, M300.4500 #### [facility] [address] [place], [address] Platelet mean volume (Bld) [Entitic vol] 9.4 fL Normal 6.2-12.0 [facility] Comment on above: Performed By: #### M 300.4600, M300.4500 #### [facility] [address] [place], [address] Platelets (Bld) [#/Vol] 218 10*3/uL Normal 150-450 [facility] Comment on above: Performed By: #### M 300.4600, M300.4500 #### [facility] [address] [place], [address] RBC (Bld) [#/Vol] 3.99 10*6/uL Low 4.6-6.2 [facility] Comment on above: Performed By: #### M 300.4600, M300.4500 #### [facility] [address] [place], [address] RDW SD 46.2 fl High 35.1-43.9 [facility] Comment on above: Performed By: #### M 300.4600, M300.4500 #### [facility] [address] [place], [address] WBC (Bld) [#/Vol] 7.6 10*3/uL Normal 4.4-11.0 [facility] Comment on above: Performed By: #### M 300.4600, M300.4500 #### [facility] [address] [place], [address] Carbon dioxide, total [Moles /volume] in Central venous bloodOrdered By: Himanshu Almaguer on 11-02-2024 CO2 [Moles/Vol] 20.8 mmol/L Low 21.0-32.0 [facility] Chloride assayOrdered By: Renzo Almaguer on 11-02-2024 Chloride [Moles/Vol] 98 mmol/L 98-108 [facility] Eosinophil percentageOrdered By: Himanshu Almaguer on 11-02-2024 Eosinophils/100 WBC (Bld) 1.7 % 0-5 [facility] Erythrocyte distribution wid th (RBC) [Ratio]Ordered By: Himanshu Almaguer on 11-02-2024 Erythrocyte distribution width (RBC) [Entitic vol] 46.2 fL High 35.1-43.9 [facility] Erythrocyte distribution wid th ratioOrdered By: Himanshu Almaguer on 11-02-2024 Erythrocyte distribution width (RBC) [Ratio] 13.6 % 11.6-14.6 [facility] Erythrocyte distribution wid th standard deviationOrdered By: Himanshu Almaguer on 11-02-2024 Erythrocyte distribution width (RBC) [Ratio] 46.2 fl High 35.1-43.9 [facility] Estimation of creatinine nicolas aranceOrdered By: Himanshu Almaguer on 11-02-2024 Estimated Creatinine Clearance Calc 12.55 ml/min Low 50-250 [facility] GFR/1.73 sq M.predicted joann g non-blacks MDRD (S/P/Bld) [Vol rate/Area]Ordered By: Himanshu Almaguer on 11-02-2024 Estimated GFR (MDRD) Non-Af Amer 10 Low >60 [facility] Comment on above: mL/min/1.73m2 CKD-EP I Creatinine Equation (2020) Glomerular filtration rate ( GFR) estimation/1.73 sq m using serum, plasma, or whole bOrdered By: Himanshu Almaguer on 11-02-2024 GFR/1.73 sq M.predicted among non-blacks MDRD (S/P/Bld) [Vol rate/Area] 10 mL/min/{1.73_m2} Low >60 [facility] Comment on above: mL/min/1.73m2 CKD-EP I Creatinine Equation (2020) Hematocrit Auto (Bld) [Volum e fraction]Ordered By: Himanshu Almaguer on 11-02-2024 Hematocrit (Bld) [Volume fraction] 36.8 % Low 40-54 [facility] Hemoglobin measurementOrdere d By: Himanshu Almaguer on 11-02-2024 Hemoglobin (Bld) [Mass/Vol] 12.4 g/dL Low 13.0-16.5 [facility] Immature granulocytes/100 WB C Auto (Bld)Ordered By: Himanshu Almaguer on 11-02-2024 Immature granulocytes/100 WBC (Bld) 2.100 % High 0.0-0.9 [facility] Comment on above: IG% - Immature Granu locytes (promyelocytes, myelocytes and metamyelocytes) > 1% indicates that a LEFT SHIFT is Present. Lymphocytes Auto (Unsp spec) [#/Vol]Ordered By: Himanshu Almaguer on 11-02-2024 Lymphocytes (Bld) [#/Vol] 0.96 10*3/uL 0.83-4.51 [facility] Lymphocytes/100 WBC Auto (Un sp spec)Ordered By: Himanshu Almaguer on 11-02-2024 Lymphocytes/100 WBC (Bld) 12.6 % Low 19-41 [facility] MCV (mean corpuscular volume ) determinationOrdered By: Himanshu Almaguer on 11-02-2024 MCV (RBC) [Entitic vol] 92.2 fL 80-94 [facility] Mean corpuscular hemoglobin (MCH) determinationOrdered By: Himasnhu Almaguer on 11-02-2024 MCH (RBC) [Entitic mass] 31.1 pg 27.0-32.0 [facility] Mean corpuscular hemoglobin concentration (MCHC) determinationOrdered By: Himanshu Almaguer on 11-02-2024 MCHC (RBC) [Mass/Vol] 33.7 g/dL 32-36 [facility] Mean platelet volume determi nationOrdered By: Himanshu Almaguer on 11-02-2024 Platelet mean volume (Bld) [Entitic vol] 9.4 fL 6.2-12.0 [facility] Monocyte percentageOrdered B y: Himanshu Almaguer on 11-02-2024 Monocytes/100 WBC (Bld) 9.8 % 0-10 [facility] Neutrophil percentageOrdered By: Himanshu Almaguer on 11-02-2024 Neutrophils/100 WBC (Bld) 73.4 % High 47-70 [facility] Nucleated red blood cell per centageOrdered By: Himanshu Almaguer on 11-02-2024 Nucleated RBC/100 WBC (Bld) [Ratio] 0 % 0-5 [facility] Platelet countOrdered By: Renzo Almaguer on 11-02-2024 Platelets (Bld) [#/Vol] 218 10*3/uL 150-450 [facility] Potassium (Unsp spec) [Mass/ Vol]Ordered By: Himanshu Almaguer on 11-02-2024 Potassium [Moles/Vol] 3.8 mmol/L 3.3-5.1 [facility] Potassium measurement (mass/ volume)Ordered By: Himanshu Almaguer on 11-02-2024 Potassium (Unsp spec) [Mass/Vol] 3.8 mmol/L 3.3-5.1 [facility] RBC Auto (Bld) [#/Vol]Ordere d By: Himanshu Almaguer on 11-02-2024 RBC (Bld) [#/Vol] 3.99 10*6/uL Low 4.6-6.2 [facility] Respiratory Cultureon 2024 RESPC List Antibiotics [place] 48 Hours? zosyn, doxycycline Mixed normal respiratory jose enrique. No Streptococcus pneumoniae, beta-hemolytic Streptococcus or Staphylococcus aureus isolated. Normal [facility] Comment on above: Performed By: #### M 8200.1000 #### [facility] [address] [place], [address] Serum creatinine measurement (mass/volume)Ordered By: Himanshu Almaguer on 11-02-2024 Creatinine [Mass/Vol] 5.94 mg/dL High 0.70-1.20 [facility] Serum glucose measurement (m ass/volume)Ordered By: Himanshu Almaguer on 11-02-2024 Glucose [Mass/Vol] 88 mg/dL 70-99 [facility] Serum or plasma calcium cuong urement (mass/volume)Ordered By: Himanshu Almaguer on 11-02-2024 Calcium [Mass/Vol] 8.9 mg/dL 7.6-11.0 [facility] Serum or plasma urea nitroge n measurement (mass/volume)Ordered By: Himanshu Almaguer on 11-02-2024 Urea nitrogen [Mass/Vol] 41 mg/dL High 4-19 [facility] Sodium levelOrdered By: Himanshu Almaguer on 11-02-2024 Sodium [Moles/Vol] 134 mmol/L 133-145 [facility] White blood cell (WBC) count Ordered By: Himanshu Almaguer on 11-02-2024 WBC (Bld) [#/Vol] 7.6 10*3/uL 4.4-11.0 [facility] Basic Metabolic Profile (BMP )on 11-01-2024 BUN/CRE 8.2 RATIO Low 10-20 [facility] Comment on above: Performed By: #### L 100.0100, L500.2500 #### [facility] [address] [place], [address] Calcium [Mass/Vol] 8.9 mg/dL Normal 7.6-11.0 [facility] Comment on above: Performed By: #### L 100.0100, L500.2500 #### [facility] [address] [place], [address] Chloride [Moles/Vol] 92 mmol/L Low 98-108 [facility] Comment on above: Performed By: #### L 100.0100, L500.2500 #### [facility] [address] [place], [address] CO2 [Moles/Vol] 21.9 mmol/L Normal 21.0-32.0 [facility] Comment on above: Performed By: #### L 100.0100, L500.2500 #### [facility] [address] [place], [address] Creatinine [Mass/Vol] 7.59 mg/dL Invalid Interpretation Code 0.70-1.20 [facility] Comment on above: Result Comment: Crit ical Result(s) Called at:0559 by: DINORAH JOHNSTON TO ALEN BRIANA??Results read back by same. Performed By: #### L 100.0100, L500.2500 #### [facility] [address] [place], [address] ECRCL 9.82 ml/min Invalid Interpretation Code 50-250 [facility] Comment on above: Performed By: #### L 100.0100, L500.2500 #### [facility] [address] [place], [address] GAP 18 High 5-15 [facility] Comment on above: Performed By: #### L 100.0100, L500.2500 #### [facility] [address] [place], [address] GFR/1.73 sq M.predicted among non-blacks MDRD (S/P/Bld) [Vol rate/Area] 7 mL/min/{1.73_m2} Low >60 [facility] Comment on above: Result Comment: mL/m in/1.73m2 CKD-EPI Creatinine Equation (2020) Performed By: #### L 100.0100, L500.2500 #### [facility] [address] [place], [address] Glucose [Mass/Vol] 101 mg/dL High 70-99 [facility] Comment on above: Performed By: #### L 100.0100, L500.2500 #### [facility] [address] [place], [address] Potassium [Moles/Vol] 3.4 mmol/L Normal 3.3-5.1 [facility] Comment on above: Performed By: #### L 100.0100, L500.2500 #### [facility] [address] [place], [address] Sodium [Moles/Vol] 132 mmol/L Low 133-145 [facility] Comment on above: Performed By: #### L 100.0100, L500.2500 #### [facility] [address] [place], [address] Urea nitrogen [Mass/Vol] 63 mg/dL High 4-19 [facility] Comment on above: Performed By: #### L 100.0100, L500.2500 #### [facility] [address] [place], [address] C. difficile DNA ALICE+probe Q l (Unsp spec)Ordered By: Chirag Lucero on 11-01-2024 Clostridioides difficile (PCR) [facility] CBC W/Diff, Automatedon Absolute Lymph 1.12 X10 3/uL Normal 0.83-4.51 [facility] Comment on above: Performed By: #### L 100.0100, L500.2500 #### [facility] [address] [place], [address] Absolute Neut 7.8 X10 3/uL High 2.0-7.7 [facility] Comment on above: Performed By: #### L 100.0100, L500.2500 #### [facility] [address] [place], [address] Basophils/100 WBC (Bld) 0.3 % Normal 0-1 [facility] Comment on above: Performed By: #### L 100.0100, L500.2500 #### [facility] [address] [place], [address] Eosinophils/100 WBC (Bld) 1.1 % Normal 0-5 [facility] Comment on above: Performed By: #### L 100.0100, L500.2500 #### [facility] [address] [place], [address] Erythrocyte distribution width (RBC) [Ratio] 13.5 % Normal 11.6-14.6 [facility] Comment on above: Performed By: #### L 100.0100, L500.2500 #### [facility] [address] [place], [address] Hematocrit (Bld) [Volume fraction] 37.4 % Low 40-54 [facility] Comment on above: Performed By: #### L 100.0100, L500.2500 #### [facility] [address] [place], [address] Hemoglobin (Bld) [Mass/Vol] 13.1 g/dL Normal 13.0-16.5 [facility] Comment on above: Performed By: #### L 100.0100, L500.2500 #### [facility] [address] [place], [address] IG% 1.000 High 0.0-0.9 [facility] Comment on above: Result Comment: IG% - Immature Granulocytes (promyelocytes, myelocytes and metamyelocytes) > 1% indicates that a LEFT SHIFT is Present. Performed By: #### L 100.0100, L500.2500 #### [facility] [address] [place], [address] Lymphocytes/100 WBC (Bld) 11.3 % Low 19-41 [facility] Comment on above: Performed By: #### L 100.0100, L500.2500 #### [facility] [address] [place], [address] MCH (RBC) [Entitic mass] 31.6 pg Normal 27.0-32.0 [facility] Comment on above: Performed By: #### L 100.0100, L500.2500 #### [facility] [address] [place], [address] MCHC (RBC) [Mass/Vol] 35.0 g/dL Normal 32-36 [facility] Comment on above: Performed By: #### L 100.0100, L500.2500 #### [facility] [address] [place], [address] MCV (RBC) [Entitic vol] 90.3 fL Normal 80-94 [facility] Comment on above: Performed By: #### L 100.0100, L500.2500 #### [facility] [address] [place], [address] Monocytes/100 WBC (Bld) 7.5 % Normal 0-10 [facility] Comment on above: Performed By: #### L 100.0100, L500.2500 #### [facility] [address] [place], [address] Neutrophils/100 WBC (Bld) 78.8 % High 47-70 [facility] Comment on above: Performed By: #### L 100.0100, L500.2500 #### [facility] [address] [place], [address] Nucleated RBC (Bld) [#/Vol] 0 10*3/uL Normal 0-5 [facility] Comment on above: Performed By: #### L 100.0100, L500.2500 #### [facility] [address] [place], [address] Platelet mean volume (Bld) [Entitic vol] 9.6 fL Normal 6.2-12.0 [facility] Comment on above: Performed By: #### L 100.0100, L500.2500 #### [facility] [address] [place], [address] Platelets (Bld) [#/Vol] 188 10*3/uL Normal 150-450 [facility] Comment on above: Performed By: #### L 100.0100, L500.2500 #### [facility] [address] [place], [address] RBC (Bld) [#/Vol] 4.14 10*6/uL Low 4.6-6.2 [facility] Comment on above: Performed By: #### L 100.0100, L500.2500 #### [facility] [address] [place], [address] RDW SD 45.1 fl High 35.1-43.9 [facility] Comment on above: Performed By: #### L 100.0100, L500.2500 #### [facility] [address] [place], [address] WBC (Bld) [#/Vol] 9.9 10*3/uL Normal 4.4-11.0 [facility] Comment on above: Performed By: #### L 100.0100, L500.2500 #### [facility] [address] [place], [address] CDIFF (PCR)on 11-01-2024 CDIFF Is the patient recei ving laxatives? N New/unexplained onset of 3 or more stools in past 24 hrs? Y Pending 027 027 NAP1-B1 Presumptive Negative *for epidemiolologic???use C. Diff PCR Negative- No toxigenic C. Diff Detected Normal [facility] Comment on above: Performed By: #### M 100.6796 #### [facility] [address] [place], [address] Clostridium difficile detect ion by polymerase chain reactionOrdered By: Chirag Lucero on 11-01-2024 C. difficile DNA ALICE+probe Ql (Unsp spec) [facility] Consultation - Nephrologyon 11-01-2024 Consultation - Nephrology [facility] Medical Records Department [address] [place] [address] Consultation - Nephrology 11/01/24 1205 MR#: [id number] Acct: [id number] Name: MARLO ADAMSON Rodrigo Rep #: [id number] : 1960 64 From: Maranda Bustamante [employer]arya PCP: Dr. Marlo Pollard, DO Status:ADM IN Location: MS3 LE177-6 Assessment Plan Assessment/Plan (1) ESRD (end stage [...] was poor and he has lost weight. [facility] Medical History (Updated 11/01/24 @ 12:07 [...] hydrocortisone 2.5 % topical cream 1 applic RI QD-BID PRN hemorrhoi ds 10/13/24 Unknown Rx [...] HPI Physica (more content not included)... Normal [facility] ENTERIC PATHOGEN PANEL STOOL on 11-01-2024 EP [...] VIBRIO Not Detected Yersinia Not Detected Normal [facility] Comment on above: Performed By: #### M 100.637, M100.7900, M100.0605 #### [facility] [address] [place], [address] Lactoferrin IA Ql (Stl)Order ed By: Chirag Lucero on 11-01-2024 Stool Lactoferrin [facility] Lower GI hemoglobin IA Ql (S tl)Ordered By: Chirag Lucero on 11-01-2024 Stool Occult Blood (PAULIE) [facility] Stool Lactoferrin/WBCon 04-0 WBCST Normal Reference Ran ge = Negative Fecal WBC Lactoferrin A Positive: Fecal WBC Lactoferrin present A Normal [facility] Comment on above: Performed By: #### M 100.637, M100.7900, M100.0605 #### [facility] [address] [place], [address] Stool Occult Blood iFOBon STOB Negative Normal [facility] Comment on above: Performed By: #### M 100.637, M100.7900, M100.0605 #### [facility] [address] [place], [address] Stool enteric pathogen panel by probe and target amplification methodOrdered By: Chirag Lucero on 11-01-2024 Enteric Bacteriology [facility] Stool gastrointestinal hemog lobin detection by immunologic methodOrdered By: Chirag Lucero on 11-01-2024 Lower GI hemoglobin IA Ql (Stl) [facility] Stool lactoferrin detection by immunoassayOrdered By: Chirag Lucero on 11-01-2024 Lactoferrin IA Ql (Stl) [facility] Absolute neutrophil countOrd ered By: Jimy Jarquin on 10-31-2024 Neutrophils (Bld) [#/Vol] 14.1 10*3/uL High 2.0-7.7 [facility] Anion gap in Serum or Plasma Ordered By: Jimy Jarquin on 10-31-2024 Anion gap [Moles/Vol] 18 mmol/L High 5-15 [facility] BUN/creatinine ratioOrdered By: Jimy Jarquin on 10-31-2024 Urea nitrogen/Creatinine [Mass ratio] 7.6 mg/mg Low 10-20 [facility] Basic Metabolic Profile (BMP )on 10-31-2024 BUN/CRE 7.6 RATIO Low 10-20 [facility] Comment on above: Performed By: #### M 300.4600, M300.4500 #### [facility] [address] [place], [address] Calcium [Mass/Vol] 9.1 mg/dL Normal 7.6-11.0 [facility] Comment on above: Performed By: #### M 300.4600, M300.4500 #### [facility] [address] [place], [address] Chloride [Moles/Vol] 89 mmol/L Low 98-108 [facility] Comment on above: Performed By: #### M 300.4600, M300.4500 #### [facility] [address] [place], [address] CO2 [Moles/Vol] 25.2 mmol/L Normal 21.0-32.0 [facility] Comment on above: Performed By: #### M 300.4600, M300.4500 #### [facility] [address] [place], [address] Creatinine [Mass/Vol] 6.33 mg/dL High 0.70-1.20 [facility] Comment on above: Performed By: #### M 300.4600, M300.4500 #### [facility] [address] [place], [address] ECRCL 11.97 ml/min Low 50-250 [facility] Comment on above: Performed By: #### M 300.4600, M300.4500 #### [facility] [address] [place], [address] GAP 18 High 5-15 [facility] Comment on above: Performed By: #### M 300.4600, M300.4500 #### [facility] [address] [place], [address] GFR/1.73 sq M.predicted among non-blacks MDRD (S/P/Bld) [Vol rate/Area] 9 mL/min/{1.73_m2} Low >60 [facility] Comment on above: Result Comment: mL/m in/1.73m2 CKD-EPI Creatinine Equation (2020) Performed By: #### M 300.4600, M300.4500 #### [facility] [address] [place], [address] Glucose [Mass/Vol] 132 mg/dL High 70-99 [facility] Comment on above: Performed By: #### M 300.4600, M300.4500 #### [facility] [address] [place], [address] Potassium [Moles/Vol] 3.3 mmol/L Normal 3.3-5.1 [facility] Comment on above: Performed By: #### M 300.4600, M300.4500 #### [facility] [address] [place], [address] Sodium [Moles/Vol] 132 mmol/L Low 133-145 [facility] Comment on above: Performed By: #### M 300.4600, M300.4500 #### [facility] [address] [place], [address] Urea nitrogen [Mass/Vol] 48 mg/dL High 4-19 [facility] Comment on above: Performed By: #### M 300.4600, M300.4500 #### [facility] [address] [place], [address] Basophil percentageOrdered B y: Jimy Jarquin on 10-31-2024 Basophils/100 WBC (Bld) 0.2 % 0-1 [facility] Bilirubin, totalOrdered By: Elidia Cunningham on 10-31-2024 Bilirubin [Mass/Vol] 0.83 mg/dL 0.00-1.30 [facility] CBC W/Diff, Automatedon 04- Absolute Lymph 0.93 X10 3/uL Normal 0.83-4.51 [facility] Comment on above: Performed By: #### M 8200.1000 #### [facility] [address] [place], [address] Absolute Neut 11.7 X10 3/uL High 2.0-7.7 [facility] Comment on above: Performed By: #### M 8200.1000 #### [facility] [address] [place], [address] Basophils/100 WBC (Bld) 0.1 % Normal 0-1 [facility] Comment on above: Performed By: #### M 8200.1000 #### [facility] [address] [place], [address] Eosinophils/100 WBC (Bld) 0.1 % Normal 0-5 [facility] Comment on above: Performed By: #### M 8200.1000 #### [facility] [address] [place], [address] Erythrocyte distribution width (RBC) [Ratio] 13.4 % Normal 11.6-14.6 [facility] Comment on above: Performed By: #### M 8200.1000 #### [facility] [address] [place], [address] Hematocrit (Bld) [Volume fraction] 39.0 % Low 40-54 [facility] Comment on above: Performed By: #### M 8200.1000 #### [facility] [address] [place], [address] Hemoglobin (Bld) [Mass/Vol] 13.5 g/dL Normal 13.0-16.5 [facility] Comment on above: Performed By: #### M 8200.1000 #### [facility] [address] [place], [address] IG% 1.200 High 0.0-0.9 [facility] Comment on above: Result Comment: IG% - Immature Granulocytes (promyelocytes, myelocytes and metamyelocytes) > 1% indicates that a LEFT SHIFT is Present. Performed By: #### M 8200.1000 #### [facility] [address] [place], [address] Lymphocytes/100 WBC (Bld) 6.7 % Low 19-41 [facility] Comment on above: Performed By: #### M 8200.1000 #### [facility] [address] [place], [address] MCH (RBC) [Entitic mass] 31.1 pg Normal 27.0-32.0 [facility] Comment on above: Performed By: #### M 8200.1000 #### [facility] [address] [place], [address] MCHC (RBC) [Mass/Vol] 34.6 g/dL Normal 32-36 [facility] Comment on above: Performed By: #### M 8200.1000 #### [facility] [address] [place], [address] MCV (RBC) [Entitic vol] 89.9 fL Normal 80-94 [facility] Comment on above: Performed By: #### M 8200.1000 #### [facility] [address] [place], [address] Monocytes/100 WBC (Bld) 7.3 % Normal 0-10 [facility] Comment on above: Performed By: #### M 8200.1000 #### [facility] [address] [place], [address] Neutrophils/100 WBC (Bld) 84.6 % High 47-70 [facility] Comment on above: Performed By: #### M 8200.1000 #### [facility] [address] [place], [address] Nucleated RBC (Bld) [#/Vol] 0 10*3/uL Normal 0-5 [facility] Comment on above: Performed By: #### M 8200.1000 #### [facility] [address] [place], [address] Platelet mean volume (Bld) [Entitic vol] 9.6 fL Normal 6.2-12.0 [facility] Comment on above: Performed By: #### M 8200.1000 #### [facility] [address] [place], [address] Platelets (Bld) [#/Vol] 186 10*3/uL Normal 150-450 [facility] Comment on above: Performed By: #### M 8200.1000 #### [facility] [address] [place], [address] RBC (Bld) [#/Vol] 4.34 10*6/uL Low 4.6-6.2 [facility] Comment on above: Performed By: #### M 8200.1000 #### [facility] [address] [place], [address] RDW SD 44.4 fl High 35.1-43.9 [facility] Comment on above: Performed By: #### M 8200.1000 #### [facility] [address] [place], [address] WBC (Bld) [#/Vol] 13.8 10*3/uL High 4.4-11.0 [facility] Comment on above: Performed By: #### M 8200.1000 #### [facility] [address] [place], [address] Absolute Lymph 0.86 X10 3/uL Normal 0.83-4.51 [facility] Comment on above: Performed By: #### M 300.4600, M300.4500 #### [facility] [address] [place], [address] Absolute Neut 14.1 X10 3/uL High 2.0-7.7 [facility] Comment on above: Performed By: #### M 300.4600, M300.4500 #### [facility] [address] [place], [address] Basophils/100 WBC (Bld) 0.2 % Normal 0-1 [facility] Comment on above: Performed By: #### M 300.4600, M300.4500 #### [facility] [address] [place], [address] Eosinophils/100 WBC (Bld) 0.1 % Normal 0-5 [facility] Comment on above: Performed By: #### M 300.4600, M300.4500 #### [facility] [address] [place], [address] Erythrocyte distribution width (RBC) [Ratio] 13.5 % Normal 11.6-14.6 [facility] Comment on above: Performed By: #### M 300.4600, M300.4500 #### [facility] [address] [place], [address] Hematocrit (Bld) [Volume fraction] 40.9 % Normal 40-54 [facility] Comment on above: Performed By: #### M 300.4600, M300.4500 #### [facility] [address] [place], [address] Hemoglobin (Bld) [Mass/Vol] 14.4 g/dL Normal 13.0-16.5 [facility] Comment on above: Performed By: #### M 300.4600, M300.4500 #### [facility] [address] [place], [address] IG% 1.500 High 0.0-0.9 [facility] Comment on above: Result Comment: IG% - Immature Granulocytes (promyelocytes, myelocytes and metamyelocytes) > 1% indicates that a LEFT SHIFT is Present. Performed By: #### M 300.4600, M300.4500 #### [facility] [address] [place], [address] Lymphocytes/100 WBC (Bld) 5.3 % Low 19-41 [facility] Comment on above: Performed By: #### M 300.4600, M300.4500 #### [facility] [address] [place], [address] MCH (RBC) [Entitic mass] 31.5 pg Normal 27.0-32.0 [facility] Comment on above: Performed By: #### M 300.4600, M300.4500 #### [facility] [address] [place], [address] MCHC (RBC) [Mass/Vol] 35.2 g/dL Normal 32-36 [facility] Comment on above: Performed By: #### M 300.4600, M300.4500 #### [facility] [address] [place], [address] MCV (RBC) [Entitic vol] 89.5 fL Normal 80-94 [facility] Comment on above: Performed By: #### M 300.4600, M300.4500 #### [facility] [address] [place], [address] Monocytes/100 WBC (Bld) 7.1 % Normal 0-10 [facility] Comment on above: Performed By: #### M 300.4600, M300.4500 #### [facility] [address] [place], [address] Neutrophils/100 WBC (Bld) 85.8 % High 47-70 [facility] Comment on above: Performed By: #### M 300.4600, M300.4500 #### [facility] [address] [place], [address] Nucleated RBC (Bld) [#/Vol] 0 10*3/uL Normal 0-5 [facility] Comment on above: Performed By: #### M 300.4600, M300.4500 #### [facility] [address] [place], [address] Platelet mean volume (Bld) [Entitic vol] 9.7 fL Normal 6.2-12.0 [facility] Comment on above: Performed By: #### M 300.4600, M300.4500 #### [facility] [address] [place], [address] Platelets (Bld) [#/Vol] 197 10*3/uL Normal 150-450 [facility] Comment on above: Performed By: #### M 300.4600, M300.4500 #### [facility] [address] [place], [address] RBC (Bld) [#/Vol] 4.57 10*6/uL Low 4.6-6.2 [facility] Comment on above: Performed By: #### M 300.4600, M300.4500 #### [facility] [address] [place], [address] RDW SD 44.1 fl High 35.1-43.9 [facility] Comment on above: Performed By: #### M 300.4600, M300.4500 #### [facility] [address] [place], [address] WBC (Bld) [#/Vol] 16.4 10*3/uL High 4.4-11.0 [facility] Comment on above: Performed By: #### M 300.4600, M300.4500 #### [facility] [address] [place], [address] Carbon dioxide, total [Moles /volume] in Central venous bloodOrdered By: Jimy Jarquin on 10-31-2024 CO2 [Moles/Vol] 25.2 mmol/L 21.0-32.0 [facility] Chest PA and Lateralon 10-31 Chest PA and Lateral [facility] Imaging Services [address] [address] Chest PA and Lateral MR#: [id number] Acct: [id number] Name: MARLO ADAMSON Rep #: [id number] : 1960 M 64 From: Beau Blackman i DO PCP: Dr. Marlo Pollard, Status: PRE ER Study: Chest PA and Lateral Date of Exam: 10/31/24 Exam# [id number] Ordering Dr: Jimy Jarquin MD PROCEDURE: PA [...] Jimy Jarquin MD; Dr. 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, [address] Albumin/Globulin [Mass ratio] 1.0 {ratio} Normal 0.9-2.4 [facility] Comment on above: Performed By: #### M 8200.1000 #### [facility] [address] [place], [address] ALK PHOS 67 U/L Normal 40-129 [facility] Comment on above: Performed By: #### M 8200.1000 #### [facility] [address] [place], [address] ALT [Catalytic activity/Vol] 22 U/L Normal <=46 [facility] Comment on above: Performed By: #### M 8200.1000 #### [facility] [address] [place], [address] AST [Catalytic activity/Vol] 24 U/L Normal <=37 [facility] Comment on above: Performed By: #### M 8200.1000 #### [facility] [address] [place], [address] Bilirubin [Mass/Vol] 0.83 mg/dL Normal 0.00-1.30 [facility] Comment on above: Performed By: #### M 8200.1000 #### [facility] [address] [place], [address] BUN/CRE 7.9 RATIO Low 10-20 [facility] Comment on above: Performed By: #### M 8200.1000 #### [facility] [address] [place], [address] Calcium [Mass/Vol] 9.0 mg/dL Normal 7.6-11.0 [facility] Comment on above: Performed By: #### M 8200.1000 #### [facility] [address] [place], [address] Chloride [Moles/Vol] 90 mmol/L Low 98-108 [facility] Comment on above: Performed By: #### M 8200.1000 #### [facility] [address] [place], [address] CO2 [Moles/Vol] 23.9 mmol/L Normal 21.0-32.0 [facility] Comment on above: Performed By: #### M 8200.1000 #### [facility] [address] [place], [address] Creatinine [Mass/Vol] 6.59 mg/dL High 0.70-1.20 [facility] Comment on above: Performed By: #### M 8200.1000 #### [facility] [address] [place], [address] ECRCL 11.26 ml/min Low 50-250 [facility] Comment on above: Performed By: #### M 8200.1000 #### [facility] [address] [place], [address] GAP 18 High 5-15 [facility] Comment on above: Performed By: #### M 8200.1000 #### [facility] [address] [place], [address] GFR/1.73 sq M.predicted among non-blacks MDRD (S/P/Bld) [Vol rate/Area] 9 mL/min/{1.73_m2} Low >60 [facility] Comment on above: Result Comment: mL/m in/1.73m2 CKD-EPI Creatinine Equation (2020) Performed By: #### M 8200.1000 #### [facility] [address] [place], [address] Globulin (S) [Mass/Vol] 3.3 g/dL Normal 2.2-4.2 [facility] Comment on above: Performed By: #### M 8200.1000 #### [facility] [address] [place], [address] Glucose [Mass/Vol] 113 mg/dL High 70-99 [facility] Comment on above: Performed By: #### M 8200.1000 #### [facility] [address] [place], [address] Potassium [Moles/Vol] 3.2 mmol/L Low 3.3-5.1 [facility] Comment on above: Performed By: #### M 8200.1000 #### [facility] [address] [place], [address] Sodium [Moles/Vol] 132 mmol/L Low 133-145 [facility] Comment on above: Performed By: #### M 8200.1000 #### [facility] [address] [place], [address] T PROT 6.5 g/dL Normal 5.9-8.4 [facility] Comment on above: Performed By: #### M 8200.1000 #### [facility] [address] [place], [id number] Urea nitrogen [Mass/Vol] 52 mg/dL High 4-19 [facility] Comment on above: Performed By: #### M 8200.1000 #### [facility] [address] [place], [id number] Emergency Department Summary on 10-31-2024 Emergency Department Summary [facility] Medical Records Department [address] [place] [id number] Emergency Department Summary 10/31/24 MR#: [id number] Acct: [id number] Name: MARLO ADAMSON Rep #: [id number] : 1960 64 From: Jimy Jarquin MD [...] for this and has no other complaints. [facility] Medical History Wears dentures Alcohol use [...] hydrocortisone 2.5 % topical cream 1 applic RI QD-BID PRN hemorrhoi ds 10/13/24 Unknown Rx [...] Air Positi (more content not included)... Normal [facility] Eosinophil percentageOrdered By: Jimy Jarquin on 10-31-2024 Eosinophils/100 WBC (Bld) 0.1 % 0-5 [facility] Erythrocyte distribution wid th (RBC) [Ratio]Ordered By: Jimy Jarquin on 10-31-2024 Erythrocyte distribution width (RBC) [Entitic vol] 44.1 fL High 35.1-43.9 [facility] Erythrocyte distribution wid th ratioOrdered By: Jimy Jarquin on 10-31-2024 Erythrocyte distribution width (RBC) [Ratio] 13.5 % 11.6-14.6 [facility] Estimation of creatinine nicolas aranceOrdered By: Jimy Jarquin on 10-31-2024 Estimated Creatinine Clearance Calc 11.97 ml/min Low 50-250 [facility] GFR/1.73 sq M.predicted joann g non-blacks MDRD (S/P/Bld) [Vol rate/Area]Ordered By: Jimy Jarquin on 10-31-2024 Estimated GFR (MDRD) Non-Af Amer 9 Low >60 [facility] Comment on above: mL/min/1.73m2 CKD-EP I Creatinine Equation (2020) Gram Stainon 10-31-2024 GS List Antibiotics [place] Hours? zosyn, doxycycline Acceptable Specimen? Yes (<25 Epithelial cells per/lpf) Gram Stain 1+ Gram positive cocci 1+ White Blood Cells 1+ Epithelial cells 1+ Gram positive rods Normal [facility] Comment on above: Performed By: #### M 300.7244, M300.4500 #### [facility] [address] [place], [address] Gram stainOrdered By: Elidia Cunningham on 10-31-2024 Microscopic observation Gram stain Nom (Unsp spec) [facility] H AND P Exam - Hospitaliston 10-31-2024 H&P Exam - Hospitalist [facility] Medical Records Department [address] [place] [address] H P Exam - Hospitalist 10/31/24 0347 MR#: [id number] Acct: [id number] Name: MARLO ADAMSON Rep #: [id number] : 1960 64 From: Elidia Cunningham MD PCP: Dr. Marlo Pollard, DO Status:ADM IN Location: [facility] [place] PO311-4 HPI - General General Date of Admission: 10/31/24 Date of Service: 10/31/24 Chief Complaint: Cough, congestion, dyspnea, recent outpatient abx. HPI Narrative The patient is a 64-year-old male with past medical history M w/ PMHx: PCKD w/ ESRD (T-F), CAD s/p PCI, HTN, HLD, GERD, Tobacco use, Hx VTE (DVT) who presents to the [facility] ED on 10/31/24 with congestion, fatigue, malaise, [...] the ED patient ministered IV Zosyn therapy. [facility] Medical History (Updated 10/31/24 @ 04:07 [...] hydrocortisone 2.5 % topical cream 1 applic RI QD-BID PRN hemorrhoi ds 10/13/24 Unknown Rx [...] wounds. CARDIOVASCULAR (more content not included)... Normal [facility] Hematocrit Auto (Bld) [Volum e fraction]Ordered By: Jimy Jarquin on 10-31-2024 Hematocrit (Bld) [Volume fraction] 40.9 % 40-54 [facility] Hemoglobin measurementOrdere d By: Jimy Jarquin on 10-31-2024 Hemoglobin (Bld) [Mass/Vol] 14.4 g/dL 13.0-16.5 [facility] Immature granulocytes/100 WB C Auto (Bld)Ordered By: Jimy Jarquin on 10-31-2024 Immature granulocytes/100 WBC (Bld) 1.500 % High 0.0-0.9 [facility] Comment on above: IG% - Immature Granu locytes (promyelocytes, myelocytes and metamyelocytes) > 1% indicates that a LEFT SHIFT is Present. L. pneumophila Ag Ql (U)Orde red By: Elidia Cunningham on 10-31-2024 Legionella Antigen [facility] - Chemistry and C hemistry - challengeOrdered By: Elidia Cunningham on 10-31-2024 AST [Catalytic activity/Vol] 24 U/L <38 [facility] Legionella Antigen Urineon 0 10-31-2024 LEGU Legionella Antigen r esult interpretation: L pneumo Ag Ur Ql Negative Presumptive negative for Legionella pneumophila serogroup 1 antigen in urine, suggesting no recent or current infection. Legionella Ag, Urine Negative (See interpretation below) Normal [facility] Comment on above: Performed By: #### M 300.4600, M300.4500 #### [facility] [address] [place], [place], [id number] Lymphocytes Auto (Unsp spec) [#/Vol]Ordered By: Jimy Jarquin on 10-31-2024 Lymphocytes (Bld) [#/Vol] 0.86 10*3/uL 0.83-4.51 [facility] Lymphocytes/100 WBC Auto (Un sp spec)Ordered By: Jimy Jarquin on 10-31-2024 Lymphocytes/100 WBC (Bld) 5.3 % Low 19-41 [facility] M8200.1000on 10-31-2024 M8200.1000 Normal Reference Ran ge = Negative MRSA DNA Nose Ql ALICE+probe GeneXpert Instrument, PCR method MRSA DNA Nose Ql ALICE+probe RESULTS CALLED TO LESTER SOTO Clement 10/31/24 0844 Yanna Ferrell. REPORT READ BACK BY . MRSA PCR A MRSA POSITIVE A Meth. resistant Staph. aureus mecA A mecA Resistance Marker Detected A Normal [facility] Comment on above: Performed By: #### M 8200.1000 #### [facility] [address] [place], [place], [id number] MCV (mean corpuscular volume ) determinationOrdered By: Jimy Jarquin on 10-31-2024 MCV (RBC) [Entitic vol] 89.5 fL 80-94 [facility] MRSA DNA ALICE+probe Ql (Nose) Ordered By: Elidia Cunningham on 10-31-2024 MRSA (PCR) Meth. resistant Stap h. aureus Abnormal [facility] Magnesiumon 10-31-2024 Magnesium [Mass/Vol] 1.8 mg/dL Normal 1.5-2.2 [facility] Comment on above: Order Comment: Comme nts: May add to ED labsComments: may add to ED labs Performed By: #### M 300.4600, M300.4500 #### [facility] [address] [place], [address] Magnesium (Unsp spec) [Mass/ Vol]Ordered By: Elidia Cunningham on 10-31-2024 Magnesium [Mass/Vol] 1.8 mg/dL 1.5-2.2 [facility] Magnesium measurement (mass/ volume)Ordered By: Elidia Cunningham on 10-31-2024 Magnesium (Unsp spec) [Mass/Vol] 1.8 mg/dL 1.5-2.2 [facility] Mean corpuscular hemoglobin (MCH) determinationOrdered By: Jimy Jarquin on 10-31-2024 MCH (RBC) [Entitic mass] 31.5 pg 27.0-32.0 [facility] Mean corpuscular hemoglobin concentration (MCHC) determinationOrdered By: Jimy Jarquin on 10-31-2024 MCHC (RBC) [Mass/Vol] 35.2 g/dL 32-36 [facility] Mean platelet volume determi nationOrdered By: Jimy Jarquin on 10-31-2024 Platelet mean volume (Bld) [Entitic vol] 9.7 fL 6.2-12.0 [facility] Microbial respiratory cultur eOrdered By: Elidia Cunningham on 10-31-2024 Microorganism identified Cx Nom (Unsp spec) or Staphylococcus aureus isolated. [facility] Microorganism identified Cx Nom (Unsp spec)Ordered By: Elidia Cunningham on 10-31-2024 Respiratory Culture or Staphylococcus au reus isolated. [facility] Monocyte percentageOrdered B y: Jimy Jarquin on 10-31-2024 Monocytes/100 WBC (Bld) 7.1 % 0-10 [facility] Nasal methicillin resistant Staphylococcus aureus (MRSA) DNA detection by PCROrdered By: Elidia Cunningham on 10-31-2024 MRSA DNA ALICE+probe Ql (Nose) Meth. resistant Staph. aureus Abnormal [facility] Neutrophil percentageOrdered By: Jimy Jarquin on 10-31-2024 Neutrophils/100 WBC (Bld) 85.8 % High 47-70 [facility] Nucleated red blood cell per centageOrdered By: Jimy Jarquin on 10-31-2024 Nucleated RBC/100 WBC (Bld) [Ratio] 0 % 0-5 [facility] Phosphoruson 10-31-2024 Phosphate [Mass/Vol] 3.3 mg/dL Normal 2.7-4.5 [facility] Comment on above: Order Comment: Comme nts: May add to ED labsComments: may add to ED labs Performed By: #### M 300.4600, M300.4500 #### [facility] Laboratory [address] [place], [address] Platelet countOrdered By: Odalis Jarquin on 10-31-2024 Platelets (Bld) [#/Vol] 197 10*3/uL 150-450 [facility] Potassium (Unsp spec) [Mass/ Vol]Ordered By: Jimy Jarquin on 10-31-2024 Potassium [Moles/Vol] 3.3 mmol/L 3.3-5.1 [facility] RBC Auto (Bld) [#/Vol]Ordere d By: Jimy Jarquin on 10-31-2024 RBC (Bld) [#/Vol] 4.57 10*6/uL Low 4.6-6.2 [facility] RESPIRATORY PANEL MOLECULARo n 10-31-2024 RP PANEL ADENOVIRUS Not Detected INFLUENZA A Not Detected INFLUENZA A (SUBTYPE H1) Not Detected INFLUENZA A (SUBTYPE H3) Not Detected INFLUENZA B Not Detected HUMAN METAPHNEUMO Not Detected PARAINFLUENZA 1 Not Detected PARAINFLUENZA 2 Not Detected PARAINFLUENZA 3 Not Detected PARAINFLUENZA 4 Not Detected RHINOVIRUS Not Detected RSV A Not Detected RSV B Not Detected Normal [facility] Comment on above: Performed By: #### M 100.638 #### [facility] [address] [place], [address] Respiratory pathogens DNA an d RNA panel ALICE+probe (Resp)Ordered By: Elidia Cunningham on 10-31-2024 Respiratory Panel (PCR) [facility] Respiratory pathogens detect ion panel by molecular detection methodOrdered By: Elidia Cunningham on 10-31-2024 Respiratory pathogens DNA and RNA panel ALICE+probe (Resp) [facility] Serum creatinine measurement (mass/volume)Ordered By: Jimy Jarquin on 10-31-2024 Creatinine [Mass/Vol] 6.33 mg/dL High 0.70-1.20 [facility] Serum globulin measurementOr dered By: Elidia Cunningham on 10-31-2024 Globulin (S) [Mass/Vol] 3.3 g/dL 2.2-4.2 [facility] Serum glucose measurement (m ass/volume)Ordered By: Jimy Jarquin on 10-31-2024 Glucose [Mass/Vol] 132 mg/dL High 70-99 [facility] Serum or plasma alanine velasquez otransferase (ALT) measurementOrdered By: Elidia Cunningham on 10-31-2024 ALT [Catalytic activity/Vol] 22 U/L <47 [facility] Serum or plasma albumin cuong urement (mass/volume)Ordered By: Eldiia Cunningham on 10-31-2024 Albumin [Mass/Vol] 3.2 g/dL Low 3.4-4.8 [facility] Serum or plasma albumin/glob ulin mass ratioOrdered By: Elidia Cunningham on 10-31-2024 Albumin/Globulin [Mass ratio] 1.0 {ratio} 0.9-2.4 [facility] Serum or plasma alkaline padmini sphatase measurementOrdered By: Elidia Cunningham on 10-31-2024 ALP [Catalytic activity/Vol] 67 U/L 40-129 [facility] Serum or plasma calcium cuong urement (mass/volume)Ordered By: Jimy Jarquin on 10-31-2024 Calcium [Mass/Vol] 9.1 mg/dL 7.6-11.0 [facility] Serum or plasma urea nitroge n measurement (mass/volume)Ordered By: Jimy Jarquin on 10-31-2024 Urea nitrogen [Mass/Vol] 48 mg/dL High 4-19 [facility] Serum phosphorus measurement Ordered By: Elidia Cunningham on 10-31-2024 Phosphorus Level 3.3 mg/dL 2.7-4.5 [facility] Sodium levelOrdered By: Cristopher Jarquin on 10-31-2024 Sodium [Moles/Vol] 132 mmol/L Low 133-145 [facility] Strep pneumoniae Antig(UR,CS F)on 10-31-2024 STPAG URINE INTERPRETATION Strep pneumoniae Antig(UR,CSF) Strep pneumoniae Antig(UR,CSF) Negative Urine Presumptive negative for pneumococcal pneumonia, suggesting no current or recent pneumococcal infection. Infection due to S pneumoniae cannot be ruled out since the antigen present in the sample may be below the detection limit of the test. Strep pneumo Test Negative URINE (See interpretation below) Normal [facility] Comment on above: Performed By: #### M 300.2180, M300.4500 #### [facility] [address] [place], [place], [address] Streptococcus pneumoniae ant igen assayOrdered By: Elidia Cunningham on 10-31-2024 Streptococcus pneumoniae Antigen (M [facility] Total proteinOrdered By: Aut sheron Cunningham on 10-31-2024 Protein [Mass/Vol] 6.5 g/dL 5.9-8.4 [facility] Urine Legionella pneumophila antigen detectionOrdered By: Elidia Cunningham on 10-31-2024 L. pneumophila Ag Ql (U) [facility] White blood cell (WBC) count Ordered By: Jimy Jarquin on 10-31-2024 WBC (Bld) [#/Vol] 16.4 10*3/uL High 4.4-11.0 [facility] Surgery Visit Reporton 10-13 Surgery Visit Report [facility] [address] [place], [place] [address] OFFICE VISIT Date of Service: 10/13/24 MR#: [id number] Acct: [id number] Name: MARLO ADAMSON Rep #: [id number] : 1960 Provider: Dr. Maria Ines molina MD Age/Sex: 64/M Location: [facility] Status: Signed Intake Vital Signs 06/08/21 [...] hydrocortisone 2.5 % topical cream 1 applic RI QD-BID PRN hemorrhoi ds 10/13/24 10/13/24 Rx with perineal applicator #30 grams (Proctozone-HC) oxycodone 10 mg tablet 10 mg PO TID PRN 10/13/24 10/13/24 History vitamin B complex-vitamin C-folic 1 tab PO QDAY 10/13/24 10/13/24 H istory acid 0.8 mg tablet (Renal-Svetlana) [facility] Medical History Acute renal failure Alcohol [...] states he did have a CT at [facility] sometime in the past we will try to get that record. Patient has never had a colonoscopy, den (more content not included)... Normal [facility] No Panel InformationOrdered By: Dr. Shirley on 10-01-2022 Hepatitis B Surface Antigen Non-Reactive Nonreactive [facility] Serum hepatitis B virus core antibody detectionOrdered By: Dr. Shirley on 10-01-2022 HBV core Ab Ql (S) Negative Negative [facility] Comment on above: Performed at: [address] [id number] Director: Ted Horne PhD, Phone: [phone] Serum hepatitis B virus surf valery antibody IgG detectionOrdered By: Dr. Shirley on 10-01-2022 HBV surface IgG Ql (S) Non-Reactive [facility] Comment on above: Non Reactive: Incons istent with immunity less than <10 mIU/mL Reactive: Consistent with immunity greater than or equal to 10 mIU/mL Basophil percentageOrdered B y: Dr. Shirley on 09-17-2022 Basophil percentage 4.2 mg/dL 2.5-4.9 [facility] Bilirubin [Mass/Vol] 0.50 mg/dL 0.20-1.00 [facility] Comment on above: For patients on eltr ombopag therapy, use of Dimension [place] TBIL is not recommended. Chloride [Moles/Vol] 109 mmol/L 98-107 [facility] Glucose [Mass/Vol] 96 mg/dL 74-106 [facility] Potassium [Moles/Vol] 4.9 mmol/L 3.5-5.1 [facility] Protein [Mass/Vol] 6.7 g/dL 6.4-8.2 [facility] Sodium [Moles/Vol] 138 mmol/L 136-145 [facility] WBC (Bld) [#/Vol] 6.8 10*3/uL 4.4-11.0 [facility] Blood erythrocytes count (nu mber/volume)Ordered By: Dr. Shirley on 09-17-2022 RBC (Bld) [#/Vol] 4.00 10*6/uL 4.6-6.2 [facility] Blood hemoglobin measurement (mass/volume)Ordered By: Dr. Shirley on 09-17-2022 Hemoglobin (Bld) [Mass/Vol] 11.8 g/dL 13.0-16.5 [facility] Blood platelet mean volumeOr dered By: Dr. Shirley on 09-17-2022 Platelet mean volume (Bld) [Entitic vol] 10.5 fL 6.2-12.0 [facility] Determination of erythrocyte mean corpuscular volume (MCV)Ordered By: Dr. Shirley on 09-17-2022 MCV (RBC) [Entitic vol] 91.8 fL 80-94 [facility] Direct bilirubinOrdered By: Dr. Shirley on 09-17-2022 Bilirubin.direct [Mass/Vol] 0.18 mg/dL 0.00-0.30 [facility] Hematocrit Auto (Bld) [Volum e fraction]Ordered By: Dr. Shirley on 09-17-2022 Hematocrit (Bld) [Volume fraction] 36.7 % 40-54 [facility] Laboratory - Chemistry and C hemistry - challengeOrdered By: Dr. Shirley on 09-17-2022 ALP [Catalytic activity/Vol] 68 U/L 45-117 [facility] ALT [Catalytic activity/Vol] 14 U/L 16-61 [facility] CO2 [Moles/Vol] 23.0 mmol/L 21.0-32.0 [facility] Globulin (S) [Mass/Vol] 3.5 g/dL 2.2-4.2 [facility] Urea nitrogen/Creatinine [Mass ratio] 9.7 mg/mg 10-20 [facility] Laboratory - Hematology and Cell countsOrdered By: Dr. Shirley on 09-17-2022 Erythrocyte distribution width (RBC) [Entitic vol] 43.1 fL 35.1-43.9 [facility] Erythrocyte distribution width (RBC) [Ratio] 12.8 % 11.6-14.6 [facility] MCH (RBC) [Entitic mass] 29.5 pg 27.0-32.0 [facility] MCHC Auto (RBC) [Mass/Vol]Or dered By: Dr. Shirley on 09-17-2022 MCHC (RBC) [Mass/Vol] 32.2 g/dL 32-36 [facility] No Panel InformationOrdered By: Dr. Shirley on 09-17-2022 Estimated GFR (MDRD) Amer 14 mL/min >60 [facility] Comment on above: GFR Calc Estimated GFR (MDRD) Non-Af Amer 11 mL/min >60 [facility] Comment on above: Non- GFR Calc Parathyroid Hormone (Intact) 327.7 pg/mL 18.4-80.1 [facility] Vitamin D 25-Hydroxy 45.6 ng/mL [facility] Comment on above: Vitamin D 25(OH) Sta tus Range Deficiency <20 ng/mL (50nmol/L) Insufficiency 20 - 30 ng/mL (50 - 75 nmol/L) Sufficiency 30 - 100 ng/mL (75 - 250 nmol/L) Toxicity >100 ng/mL (>250 nmol/L) Platelets bldOrdered By: Dr. Shirley on 09-17-2022 Platelets (Bld) [#/Vol] 121 10*3/uL 150-450 [facility] Serum or plasma albumin cuong urement (mass/volume)Ordered By: Dr. Shirley on 09-17-2022 Albumin [Mass/Vol] 3.2 g/dL 3.2-5.0 [facility] Serum or plasma calcium cuong urement (mass/volume)Ordered By: Dr. Shirley on 09-17-2022 Calcium [Mass/Vol] 8.6 mg/dL 8.5-10.1 [facility] Serum or plasma creatinine m easurement (mass/volume)Ordered By: Dr. Shirley on 09-17-2022 Creatinine [Mass/Vol] 5.54 mg/dL 0.70-1.30 [facility] Comment on above: The validity of the calculated GFR & GFRAA in patients over 70 years has not been determined. Clinical correlation is essential. Serum or plasma urea nitroge n measurement (mass/volume)Ordered By: Dr. Shirley on 09-17-2022 Urea nitrogen [Mass/Vol] 54 mg/dL 7-18 [facility] Thin prep Papanicolaou smear with manual screeningOrdered By: Dr. Shirley on 09-17-2022 Thin prep Papanicolaou smear with manual screening 11 U/L 15-37 [facility] Thin prep Papanicolaou smear with manual screening 6 5-15 [facility] Urine creatinine measurement (mass/volume)Ordered By: Dr. Shirley on 09-17-2022 Creatinine (U) [Mass/Vol] 67.30 mg/dL NO RANGE EST. [facility] Urine protein measurement (m ass/volume)Ordered By: Dr. Shirley on 09-17-2022 Protein (U) [Mass/Vol] 146.1 mg/dL 0.0-11.8 [facility] Urine protein/creatinine mas s ratioOrdered By: Dr. Shirley on 09-17-2022 Protein/Creatinine (U) [Mass ratio] 2171 mg/g CRE 0-200 [facility] Basophil percentageon 2021 Basophil percentage 4.0 mg/dL 2.5-4.9 [facility] Work Phone: [phone] Chloride [Moles/Vol] 111 mmol/L 98-107 [facility] Work Phone: Glucose [Mass/Vol] 92 mg/dL 74-106 [facility] Work Phone: [phone] Potassium [Moles/Vol] 4.5 mmol/L 3.5-5.1 [facility] Work Phone: Sodium [Moles/Vol] 137 mmol/L 136-145 [facility] Work Phone: [phone] WBC (Bld) [#/Vol] 6.9 10*3/uL 4.4-11.0 [facility] Work Phone: [phone] Blood erythrocytes count (nu mber/volume)on 11-19-2021 RBC (Bld) [#/Vol] 4.31 10*6/uL 4.6-6.2 [facility] Work Phone: [phone] Blood hemoglobin measurement (mass/volume)on 11-19-2021 Hemoglobin (Bld) [Mass/Vol] 12.7 g/dL 13.0-16.5 [facility] Work Phone: [phone] Blood platelet mean volumeon 11-19-2021 Platelet mean volume (Bld) [Entitic vol] 10.1 fL 6.2-12.0 [facility] Work Phone: Determination of erythrocyte mean corpuscular volume (MCV)on 11-19-2021 MCV (RBC) [Entitic vol] 90.0 fL 80-94 [facility] Work Phone: Hematocrit Auto (Bld) [Volum e fraction]on 11-19-2021 Hematocrit (Bld) [Volume fraction] 38.8 % 40-54 [facility] Work Phone: Laboratory - Chemistry and C hemistry - challengeon 11-19-2021 CO2 [Moles/Vol] 20.0 mmol/L 21.0-32.0 [facility] Work Phone: Urea nitrogen/Creatinine [Mass ratio] 9.7 mg/mg 10-20 [facility] Work Phone: Laboratory - Hematology and Cell countson 11-19-2021 Erythrocyte distribution width (RBC) [Entitic vol] 44.6 fL 35.1-43.9 [facility] Work Phone: Erythrocyte distribution width (RBC) [Ratio] 13.5 % 11.6-14.6 [facility] Work Phone: MCH (RBC) [Entitic mass] 29.5 pg 27.0-32.0 [facility] Work Phone: MCHC Auto (RBC) [Mass/Vol]on 11-19-2021 MCHC (RBC) [Mass/Vol] 32.7 g/dL 32-36 [facility] Work Phone: No Panel Informationon 11-19 Estimated GFR (MDRD) Amer 18 mL/min >60 [facility] Work Phone: Comment on above: GFR Calc Estimated GFR (MDRD) Non-Af Amer 15 mL/min >60 [facility] Work Phone: Comment on above: Non- GFR Calc Parathyroid Hormone (Intact) 148.8 pg/mL 18.4-80.1 [facility] Work Phone: Vitamin D 25-Hydroxy 61.0 ng/mL [facility] Work Phone: Comment on above: Vitamin D 25(OH) Sta tus Range Deficiency <20 ng/mL (50nmol/L) Insufficiency 20 - 30 ng/mL (50 - 75 nmol/L) Sufficiency 30 - 100 ng/mL (75 - 250 nmol/L) Toxicity >100 ng/mL (>250 nmol/L) Platelets bldon 11-19-2021 Platelets (Bld) [#/Vol] 146 10*3/uL 150-450 [facility] Work Phone: Serum or plasma albumin cuong urement (mass/volume)on 11-19-2021 Albumin [Mass/Vol] 3.3 g/dL 3.2-5.0 [facility] Work Phone: Serum or plasma calcium cuong urement (mass/volume)on 11-19-2021 Calcium [Mass/Vol] 8.9 mg/dL 8.5-10.1 [facility] Work Phone: Serum or plasma creatinine m easurement (mass/volume)on 11-19-2021 Creatinine [Mass/Vol] 4.42 mg/dL 0.70-1.30 [facility] Work Phone: Comment on above: The validity of the calculated GFR & GFRAA in patients over 70 years has not been determined. Clinical correlation is essential. Serum or plasma urea nitroge n measurement (mass/volume)on 11-19-2021 Urea nitrogen [Mass/Vol] 43 mg/dL 7-18 [facility] Work Phone: Urine creatinine measurement (mass/volume)on 11-19-2021 Creatinine (U) [Mass/Vol] 109.00 mg/dL NO RANGE EST. [facility] Work Phone: [phone] Urine protein measurement (m ass/volume)on 11-19-2021 Protein (U) [Mass/Vol] 61.4 mg/dL 0.0-11.8 [facility] Work Phone: Urine protein/creatinine mas s ratioon 11-19-2021 Protein/Creatinine (U) [Mass ratio] 563 mg/g CRE 0-200 [facility] Work Phone: Basophil percentageon 2021 Chloride [Moles/Vol] 111 mmol/L 98-107 [facility] Work Phone: Glucose [Mass/Vol] 91 mg/dL 74-106 [facility] Work Phone: Potassium [Moles/Vol] 4.7 mmol/L 3.5-5.1 [facility] Work Phone: Sodium [Moles/Vol] 140 mmol/L 136-145 [facility] Work Phone: Laboratory - Chemistry and C hemistry - challengeon 08-10-2021 CO2 [Moles/Vol] 25.0 mmol/L 21.0-32.0 [facility] Work Phone: Urea nitrogen/Creatinine [Mass ratio] 10.7 mg/mg 10-20 [facility] Work Phone: No Panel Informationon 08-10 Estimated GFR (MDRD) Amer 18 mL/min >60 [facility] Work Phone: Comment on above: GFR Calc Estimated GFR (MDRD) Non-Af Amer 15 mL/min >60 [facility] Work Phone: Comment on above: Non- GFR Calc Serum or plasma calcium cuong urement (mass/volume)on 08-10-2021 Calcium [Mass/Vol] 9.1 mg/dL 8.5-10.1 [facility] Work Phone: Serum or plasma creatinine m easurement (mass/volume)on 08-10-2021 Creatinine [Mass/Vol] 4.29 mg/dL 0.70-1.30 [facility] Work Phone: Comment on above: The validity of the calculated GFR & GFRAA in patients over 70 years has not been determined. Clinical correlation is essential. Serum or plasma urea nitroge n measurement (mass/volume)on 08-10-2021 Urea nitrogen [Mass/Vol] 46 mg/dL 7-18 [facility] Work Phone: Thin prep Papanicolaou smear with manual screeningon 08-10-2021 Thin prep Papanicolaou smear with manual screening 4 5-15 [facility] Work Phone: Urine creatinine measurement (mass/volume)on 08-10-2021 Creatinine (U) [Mass/Vol] 92.10 mg/dL NO RANGE EST. [facility] Work Phone: Urine protein measurement (m ass/volume)on 08-10-2021 Protein (U) [Mass/Vol] 51.2 mg/dL 0.0-11.8 [facility] Work Phone: Urine protein/creatinine mas s ratioon 08-10-2021 Protein/Creatinine (U) [Mass ratio] 556 mg/g CRE 0-200 [facility] Work Phone: CNCOon 10-18-2020 CNCO Letter Text Normal [facility] CNPNon 09-29-2020 CNPN Telephone (FAMPWS) MARLO ADAMSON ([id number]) 1960 M Date Time Provider Department 09/29/20 [...] and abscess of unspecified site [L03*01/29/2007 12/15/2018 [place] NOS EPISODE CARE UNSPEC [I21.9] 02/03/2007 Hematuria [...] TO WILKES III, MD on 09/29/20 Normal [facility] XR Chest PA and Lateralon IMPRESSION: Stable exam without acute findings. 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 DIVISION OF RADIOLOGY Provider, [facility] - 07/04/2020 * * *Final Report* * [...] IMPRESSION IMPRESSION: Stable exam without acute findings. 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 Marlo Pollard DO Work Phone: [facility] 01-30-2025 05:25-0400 Diastolic blood pressure 80 mm[Hg] Dr. Marlo Pollard DO Work Phone: [facility] 01-30-2025 05:25-0400 Heart rate 84 /min Dr. Marlo Pollard DO Work Phone: [facility] 01-30-2025 05:25-0400 Respiratory rate 16 /min Dr. Marlo Pollard DO Work Phone: [facility] 01-30-2025 05:25-0400 SaO2% (BldA) [Mass fraction] 96 % Dr. Marlo Pollard DO Work Phone: [facility] 01-30-2025 05:25-0400 Systolic blood pressure 118 mm[Hg] Dr. Marlo Pollard DO Work Phone: [facility] 01-30-2025 03:30-0400 Body height 177.[address] Marlo Pollard DO Work Phone: [facility] 01-30-2025 03:30-0400 Body mass index (BMI) [Ratio] 23.3 kg/m2 Dr. Marlo Pollard DO Work Phone: [facility] 01-30-2025 03:30-0400 Body weight [address] Marlo Pollard DO Work Phone: [facility] 01-21-2025 16:26-0400 Body temperature 97.7 [degF] Dr. Marlo Pollard DO Work Phone: [facility] 01-21-2025 16:26-0400 Diastolic blood pressure 77 mm[Hg] Dr. Marlo Pollard DO Work Phone: [facility] 01-21-2025 16:26-0400 Heart rate 56 /min Dr. Marlo Pollard DO Work Phone: [facility] 01-21-2025 16:26-0400 Respiratory rate 16 /min Dr. Marlo Pollard DO Work Phone: [facility] 01-21-2025 16:26-0400 SaO2% (BldA) [Mass fraction] 97 % Dr. Marlo Pollard DO Work Phone: [facility] 01-21-2025 16:26-0400 Systolic blood pressure 149 mm[Hg] Dr. Marlo Pollard DO Work Phone: [facility] 01-21-2025 10:25-0400 Body height 177.[address] Marlo Pollard DO Work Phone: [facility] 01-21-2025 10:25-0400 Body mass index (BMI) [Ratio] 23.1 kg/m2 Dr. Marlo Pollard DO Work Phone: [facility] 01-21-2025 10:25-0400 Body weight [address] Marlo Pollard DO Work Phone: [facility] 12-22-2024 08:50-0400 Body temperature 97.3 [degF] Dr. Marlo Pollard DO Work Phone: [facility] 12-22-2024 08:50-0400 Diastolic blood pressure 66 mm[Hg] Dr. Marlo Pollard DO Work Phone: [facility] 12-22-2024 08:50-0400 Heart rate 63 /min Dr. Marlo Pollard DO Work Phone: [facility] 12-22-2024 08:50-0400 Respiratory rate 16 /min Dr. Marlo Pollard DO Work Phone: [facility] 12-22-2024 08:50-0400 SaO2% (BldA) [Mass fraction] 100 % Dr. Marlo Pollard DO Work Phone: [facility] 12-22-2024 08:50-0400 Systolic blood pressure 101 mm[Hg] Dr. Marlo Pollard DO Work Phone: [facility] 12-22-2024 06:33-0400 Body height 177.[address] Marlo Pollard DO Work Phone: [facility] 12-22-2024 06:33-0400 Body mass index (BMI) [Ratio] 23.3 kg/m2 Dr. Marlo Pollard DO Work Phone: [facility] 12-22-2024 06:33-0400 Body weight [address] Marlo Pollard DO Work Phone: [facility] 11-02-2024 13:11-0400 Heart rate 67 /min Dr. Marlo Pollard DO Work Phone: [facility] 11-02-2024 13:11-0400 Respiratory rate 16 /min Dr. Marlo Pollard DO Work Phone: [facility] 11-02-2024 13:11-0400 SaO2% (BldA) [Mass fraction] 92 % Dr. Marlo Pollard DO Work Phone: [facility] 11-02-2024 13:06-0400 Body temperature 97.8 [degF] Dr. Marlo Pollard DO Work Phone: [facility] 11-02-2024 13:06-0400 Diastolic blood pressure 65 mm[Hg] Dr. Marlo Pollard DO Work Phone: [facility] 11-02-2024 13:06-0400 Systolic blood pressure 138 mm[Hg] Dr. Marlo Pollard DO Work Phone: [facility] 11-02-2024 03:44-0400 Inhaled oxygen flow rate 2 L/min Dr. Marlo Pollard DO Work Phone: [facility] 11-01-2024 11:41-0400 Body mass index (BMI) [Ratio] 22.2 kg/m2 Dr. Marlo Pollard DO Work Phone: [facility] 11-01-2024 11:41-0400 Body weight 70.[address] Marlo Pollard DO Work Phone: [facility] 10-31-2024 16:55-0400 Body height 177.[address] Marlo Pollard DO Work Phone: [facility] 10-31-2024 03:47-0400 Body temperature 98.1 [degF] Dr. Marlo Pollard DO Work Phone: [facility] 10-31-2024 03:47-0400 Diastolic blood pressure 69 mm[Hg] Dr. Marlo Pollard DO Work Phone: [facility] 10-31-2024 03:47-0400 Heart rate 77 /min Dr. Marlo Pollard DO Work Phone: [facility] 10-31-2024 03:47-0400 Respiratory rate 16 /min Dr. Marlo Pollard DO Work Phone: [facility] 10-31-2024 03:47-0400 SaO2% (BldA) [Mass fraction] 93 % Dr. Marlo Pollard DO Work Phone: [facility] 10-31-2024 03:47-0400 Systolic blood pressure 146 mm[Hg] Dr. Marlo Pollard DO Work Phone: [facility] 10-31-2024 03:45-0400 Inhaled oxygen flow rate 3 L/min Dr. Marlo Pollard DO Work Phone: [facility] 10-31-2024 01:58-0400 Body height 177.[address] Marlo Pollard DO Work Phone: [facility] 10-31-2024 01:58-0400 Body mass index (BMI) [Ratio] 22.7 kg/m2 Dr. Marlo Pollard DO Work Phone: [facility] 10-31-2024 01:58-0400 Body weight 71.[address] Marlo Pollard DO Work Phone: [facility] 10-13-2024 14:14-0400 Body mass index (BMI) [Ratio] 24.2 kg/m2 Dr. Marlo Pollard DO Work Phone: [facility] 10-13-2024 14:14-0400 Body weight 76.[address] Marlo Pollard DO Work Phone: [facility] 10-13-2024 14:14-0400 Diastolic blood pressure 79 mm[Hg] Dr. Marlo Pollard DO Work Phone: [facility] 10-13-2024 14:14-0400 Heart rate 66 /min Dr. Marlo Pollard DO Work Phone: [facility] 10-13-2024 14:14-0400 Respiratory rate 17 /min Dr. Marlo Pollard DO Work Phone: [facility] 10-13-2024 14:14-0400 SaO2% (BldA) [Mass fraction] 97 % Dr. Marlo Pollard DO Work Phone: [facility] 10-13-2024 14:14-0400 Systolic blood pressure 156 mm[Hg] Dr. Marlo Pollard DO Work Phone: [facility] Encounters Encounter Date Encounter Type Care Provider Facility Start: 01-30-2025 Non-patient / Non-visit Dr. Fili Nj MD -[facility] Start: 01-30-2025 Admission to [facility] Dr. Fili Nj MD -Drying Supervisor Work Phone: Start: 01-30-[address] Marlo luis DO Work Phone: -Drying Supervisor Start: 01-21-2025 Non-patient / Non-visit Dr. Ervin Mckoy MD -[facility] Start: 01-21-2025 End: 01-21-2025 Admission to same day surgery center Dr. Maria Ines Mckoy MD -[facility] Start: 01-21-2025 End: 01-21-[address] Marlo Pollard DO Work Phone: -[facility] Start: 12-22-2024 Non-patient / Non-visit Dr. Ervin cMkoy MD -[facility] Start: 12-22-2024 End: 12-22-2024 Admission to same day surgery center Dr. Maria Ines Mckoy MD -Endoscopy Work Phone: Start: 12-22-2024 End: 12-22-[address] Marlo Pollard DO Work Phone: [facility] Work Phone: Start: 11-02-2024 Non-patient / Non-visit Dr. Himanshu lee [facility] Work Phone: Start: 11-01-2024 Non-patient / Non-visit Dr. Himanshu lee [facility] Work Phone: Start: 10-31-2024 ambulatory [facility] Start: 10-31-2024 End: 11-02-2024 Evaluation and management of inpatient Dr. Elidia Cunningham MD -Medical Surgical 3 Work Phone: Start: 10-13-2024 End: 10-13-[address] Maria Ines Mckoy MD -[facility] Work Phone: Start: 10-13-2024 End: 10-13-2024 ambulatory [facility] Start: 10-01-2022 End: 10-01-2022 ambulatory [facility] Work Phone: Start: 10-01-2022 End: 10-01-2022 Patient encounter procedure [facility]Labor[facility] Start: 09-17-2022 End: 09-17-2022 ambulatory [facility] Work Phone: Start: 09-17-2022 End: 09-17-2022 Patient encounter procedure [facility] Start: 11-19-2021 End: 11-19-[address] Marlo Pollard Work Phone: [facility] Start: 08-10-2021 End: 08-10-[address] Marlo Pollard Work Phone: [facility] Start: 07-31-2021 End: 07-31-[address] Marlo Pollard Work Phone: [facility] Start: 07-04-2020 End: 07-04-2020 Subsequent hospital visit by physician [facility] Work Phone: Radiology Comment on above: [...] panel - S stevo or Plasma [facility] [place] Work Phone: Plan of Treatment Date Care Activity Detail Author Start: 2035 RSV Vaccine (1 - 1-dose 75+ series) RSV Vaccine (1 - 1-dose 75+ series) [facility] Start: 04-14-2029 Urine microalbumin profile DTaP,Tdap,Td Vaccine (3 - Td or Tdap) [facility] Start: 06-14-2025 Lipid panel Lipid Screening [facility] Start: 04-18-2025 Prostate specific antigen measurement Prostate Cancer Screening Discussion [facility] Start: 01-30-2025 Hemorrhoidectomy Hemorrhoidectomy (Not Applicable) [facility] Start: 01-30-2025 Hospital admission, emergency, from emergency room, medical nature [facility] Start: 01-30-2025 Administration of blood product [facility] Start: 01-30-2025 Leukocyte reduced red blood cells [facility] Start: 01-21-2025 Patient discharge [facility] Start: 12-22-2024 Colsc flx w/rmvl of tumor polyp lesion snare tq COLONOSCOPY W/LESION REMOVAL [facility] Start: 12-22-2024 Patient discharge [facility] Start: 11-02-2024 Patient discharge [facility] Start: 11-02-2024 Physiotherapy of chest [facility] Start: 11-01-2024 End: 11-01-2024 [facility] Start: 11-01-2024 Hemodialysis care [facility] Start: 10-31-2024 Following clinical pathway protocol [facility] Start: 10-31-2024 Assessment of risk of venous thromboembolism [facility] Start: 10-31-2024 Bacteria identified in Sputum by Culture [facility] Start: 10-31-2024 Fall prevention [facility] Start: 10-31-2024 Incentive spirometry [facility] Start: 10-31-2024 Inhalation therapy procedure [facility] Start: 10-31-2024 Insertion of catheter into peripheral vein [facility] Start: 10-31-2024 Introduction of urinary catheter [facility] Start: 10-31-2024 Measuring intake and output [facility] Start: 10-31-2024 Methicillin resistant Staphylococcus aureus (MRSA) DNA [Presence] in Nose by ALICE with probe detection [facility] Start: 10-31-2024 Methicillin resistant Staphylococcus aureus screening test [facility] Start: 10-31-2024 Oxygen therapy [facility] Start: 10-31-2024 Providing care according to standard [facility] Start: 10-31-2024 Provision of activity privileges [facility] Start: 10-31-2024 Referral to vehicle cost engineer [facility] Start: 10-31-2024 Referral to occupational therapist [facility] Start: 10-31-2024 Referral to service [facility] Start: 10-31-2024 Taking nasal swab [facility] Start: 10-31-2024 [facility] Start: 10-31-2024 Following clinical pathway protocol [facility] Start: 04-06-2025 Verification routine [facility] Start: 10-31-2024 Legionella pneumophila Ag [Presence] in Urine [facility] Start: 10-31-2024 Respiratory pathogens DNA and RNA panel - Respiratory specimen by ALICE with probe detection [facility] Start: 10-31-2024 Streptococcus pneumoniae antigen assay [facility] Start: 10-31-2024 Admission procedure [facility] Start: 10-31-2024 Serum inorganic phosphate measurement [facility] Start: 10-31-2024 Patient referral to dietitian [facility] Start: 10-31-2024 [facility] Start: 03-28-2024 Covid-19 Vaccine () Covid-19 Vaccine () [facility] Start: 03-28-2024 Influenza vaccination Influenza Vaccine (#1) [facility] Start: 04-19-2023 Diabetes Screening Diabetes Screening [facility] Start: 06-19-2021 Annual PCP Team Chronic Disease Visit Annual PCP Team Chronic Disease Visit [facility] Start: 06-14-2021 Hepatitis B surface antibody level LDL Cholesterol [facility] Start: 04-19-2021 Complete blood count Hemoglobin/Hematocrit [facility] Start: 06-18-2020 Creatinine measurement Serum Creatinine [facility] Start: 06-07-2020 Screening for malignant neoplasm of colon [facility] Start: 08-12-2016 Pneumococcal vaccination Pneumococcal Vaccine (2 of 2 - PPSV23 or PCV20) [facility] Start: 2010 Shingrix Vaccine (1 of 2) Shingrix Vaccine (1 of 2) [facility] Start: 2005 Screening for malignant neoplasm of colon [facility] Start: 1978 Anxiety Screening Anxiety Screening [facility] Start: 1978 BP Controlled (<130/80) BP Controlled (<130/80) [facility] Start: 1978 Depression Screening Depression Screening [facility] Start: 1978 Hepatitis C screening Hepatitis C Screening [facility] Start: 1978 HIV screening HIV Screening [facility] Alanine aminotransfe rase [Enzymatic activity/volume] in Serum or Plasma [facility] Albumin [Mass/volume ] in Serum or Plasma [facility] Alkaline phosphatase [Enzymatic activity/volume] in Serum or Plasma [facility] Anion gap in Serum o r Plasma [facility] Bilirubin, total measurement [facility] BUN/Creatinine ratio [facility] Calcium [Mass/volume ] in Serum or Plasma [facility] Carbon dioxide, tota l [Moles/volume] in Central venous blood [facility] Colonoscopy [facility] Creatinine [Mass/vol ume] in Serum or Plasma [facility] Erythrocyte mean corpuscular volume determination [facility] Glucose [Mass/volume ] in Serum or Plasma [facility] Hematocrit [Volume Fraction] of Blood [facility] Hemoglobin [Mass/vol ume] in Blood [facility] Leukocytes [#/volume ] in Blood [facility] Magnesium measurement [facility] Mean corpuscular hemoglobin concentration determination [facility] Mean corpuscular hemoglobin determination [facility] Measurement of renal function [facility] Neutrophil count [facility] Neutrophil percent differential count [facility] Patient referral [facility] Work Phone: Platelets [#/volume] in Blood [facility] Potassium measurement [facility] Red blood cell count [facility] Red cell distributio n width determination [facility] Serum chloride measurement [facility] Sodium measurement [facility] Total protein measurement [facility] Urea nitrogen [Mass/volume] in Serum or Plasma [facility] Immunizations Immunization Date Immunization Notes Care Provider Kartik gee 04-14-2019 tetanus toxoid, redu bud diphtheria toxoid, and acellular pertussis vaccine, adsorbed [facility] [place] Work Phone: [facility] 06-17-2016 pneumococcal conjuga te vaccine, 13 valent [facility] [place] Work Phone: [facility] 06-17-2016 influenza virus vacc ine, unspecified formulation [facility] [place] Work Phone: [facility] 06-17-2013 tetanus toxoid, redu bud diphtheria toxoid, and acellular pertussis vaccine, adsorbed [facility] [place] Work Phone: [facility] Payers Date Payer Category Payer Medicare [id number] 2024 Self-pay [id number] Medicare [id number] 2015 Medicare MEDICARE MEDICAR E A AND B [id number] 2015-Present [phone] [address] [address] [place] [address] Medicare [id number] Medicare [id number] Unknown [id number] Unknown [id number] Unknown [id number] Unknown [id number] Unknown [id number] Unknown [id number] Unknown [id number] Unknown [id number] Unknown [id number] Unknown [id number] Social History Date Type Detail Facility Start: 06-06-2021 End: 06-06-2021 Tobacco smoking status GAIS Unknown if ever smoked [facility] Start: 1960 Sex Assigned At Male [facility] Start: 07-03-2011 End: 01-30-2025 Tobacco smoking status GAIS Smokes tobacco daily [facility] Work Phone: History of tobacco use Cigarette Smoker C [facility] Start: 07-03-2011 End: 2020 Cigarettes smoked current (pack per day) - Reported 1 [facility] Start: 07-03-2011 Tobacco use and exposure Smokeless tobacco non-user [facility] Start: 06-19-2020 Alcoholic beverage intake Current non-drinker of alcohol (finding) [facility] Start: 06-19-2020 End: 2020 Tobacco use panel [facility] National Score (1-10 0), lower number is lower risk Not on file [facility] Start: 05-15-2010 [facility] Start: 1960 Sex assigned at Not on file C [facility] Start: 06-04-2020 End: 07-04-2020 Exposure to SARS-CoV-2 (event) Not sure [facility] Start: 10-31-2024 End: 11-02-2024 Sex Male (finding) [facility] Medical Equipment Procedure Code Equipment Code Equipment [...] Result Facility 11-02-2024 Functional status Ambulates;Bathroom Priv [facility] Work Phone: Mental Status Date Assessment Result Facility 01-21-2025 Cognitive function Voice/Name [facility] Work Phone: 12-22-2024 Cognitive function Voice/Name [facility] Work Phone: 11-02-2024 Cognitive function Voice/Name [facility] Work Phone: 10-31-2024 Cognitive function Level Of Cons ciousness Awake;Alert;Appropriate;Follow s Commands [facility] Work Phone: Clinical Notes 2019 to 01-30-2025 Note Date & Type Note Facility 01-30-2025 Consult note [facility] 01-30-2025 Discharge summary [facility] 01-30-2025 History and physical note [facility] 01-21-2025 Discharge summary Note Date/Time January 21, 2025 2:19pm [facility] Medical Records Department [address] [place] [address] Instructions for Home/Discharge Instructions 01/21/25 1417 MR#: [id number] Acct: [id number] Name: MARLO ADAMSON Rep #:[id number] : 1960 64 From: Maria Ines Mcoky MD PCP: Dr. Marlo Pollard, DO Status:REG [facility] Discharge Instructions Diet Discharge Diet: Light diet [...] weeks call the office for follow-up appointment [phone] Test Results: Test results from this visit will be discussed in further detail at your follow-up appointment, if applicable. Discharge Plan Admission Attending Provider: Maria Ines Mckoy Primary Care Provider: Marlo Pollard Instructions Print Language: Bruneian Discharge Orders/Prescriptions Prescriptions: Continued metoprolol tartrate 25 [...] % cream with perineal applicator 1 applic RI QD-BID PRN (Reason: hemorrhoids) Qty: 30 0RF [...] CC: Dr. Marlo Pollard DO ~ Signed [facility] Work Phone: 1(241) 177-541806-27-2025 Consult note [facility] Medical Records Department [address] [place] [address] Anesthesia Postop Eval I 01/21/25 1429 MR#: [id number] Acct: [id number] Name: MARLO ADAMSON Rep #:[id number] : 1960 64 From: Rosy Garcia PCP: Dr. Marlo Pollard DO Status:REG SDC Y Race: C Location: [place] [address] Anesthesia: Postop Eval I Current Vital Signs [...] Rosy Larkinigner Signature: Date CC: ~ Signed [facility]06-27-2025 Discharge summary [facility] Medical Records Department [address] [place] [address] Instructions for Home/Discharge Instructions 01/21/25 1417 MR#: [id number] Acct: [id number] Name: MARLO ADAMSON Rep #:[id number] : 1960 64 From: Maria Ines Mckoy MD PCP: Dr. Marlo Pollard, Status:REG [facility] Discharge Instructions Diet Discharge Diet: Light diet [...] weeks call the office for follow-up appointment [phone] Test Results: Test results from this visit will be discussed in further detail at your follow- up appointment, if applicable. Discharge Plan Admission Attending Provider: Maria Ines Mckoy Primary Care Provider: Marlo Pollard Instructions Print Language: Bruneian Discharge Orders/Prescriptions Prescriptions: Continued metoprolol tartrate 25 [...] % cream with perineal applicator 1 applic RI QD-BID PRN (Reason: hemorrhoids) Qty: 30 0RF [...] CC: Dr. Marlo Pollard DO ~ Signed [facility]06-27-2025 Consult note Author Isacc Cavanaugh [facility] Note Date/Time January 21, 2025 11:0 3am [facility] Medical Records Department [address] [place] [address] Pre-Anesthesia Evaluation 01/21/25 1057 MR#: [id number] Acct: [id number] Name: MARLO ADAMSON Rep #:[id number] : 1960 64 From: Isacc Cavanaugh MD PCP: Dr. Marlo Pollard DO Status:REG SDC Y Race: C Location: [place] [address] ASA Classification* ASA Classification ASA Classification: 3 [...] possible fistulotomy Anesthesia History Anesthesia History - dynamite shooter: Anesthesia History - dynamite shooter Hx Hospitalization Yes: 11-19 infection 01/07/25 09:36 [...] sips of water?: Yes PONV PONV - dynamite shooter: PONV - dynamite shooter Female No 01/07/25 09:36 HX of Motion [...] 01/21/25 10:25 Respiratory Assessment Respiratory Assessment - dynamite shooter: Respiratory Tract Infection Hx - dynamite shooter Hx Respiratory Tract Infection No 01/07/25 09:36 STOP Sleep Apnea STOP Sleep Apnea - dynamite shooter: STOP Sleep Apnea - dynamite shooter Hx Hypertension Yes 01/07/25 09:36 Hx Sleep [...] Tobacco Use History Tobacco Use History - dynamite shooter: Tobacco Use History - dynamite shooter Tobacco Use Smoking Status Current every day [...] today.) Hematologic Medial History Hematologic Hx - dynamite shooter: 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 Hx of Blood Transfusion No 01/07/25 09:36 [...] confused, unrespo /Reproduction History /Reproductive History - dynamite shooter: /Reproductive Hx- dynamite shooter Hx Now No 01/07/25 09:36 Gestational Age [...] hydrocortisone 2.5 % topical cream 1 applic RI QD-BID PRN hemorrhoids 10/13/24 01/20/25 Rx with [...] torres MD> Date _ Isacc Cavanaugh MD [facility] Signature: Date CC: ~ Signed [facility] Work Phone: 1(995) 599-536006-27-2025 History and physical note Author Maria Ines Mckoy [facility] Note Date/Time January 21, 2025 11:0 0[facility] Medical Records Department [address] [place] [address] History & Physical Exam 01/21/25 1004 MR#: [id number] Acct: [id number] Name: MARLO ADAMSON Rep #:[id number] : 1960 64 From: Maria Ines Mckoy MD PCP: Dr. Marlo Pollard, DO Status:[facility] Location: [place] [address] History and Physical Date of Admission: 01/21/25 12/22/24 0708 MR#: [id number] Acct: [id number] Name: MARLO ADAMSON Rep #: [id number] : 1960 64 From: Maria Ines Mckoy MD PCP: Dr. Marlo Pollard, DO Status: [facility] Location: [place] [address]-1 HPI - General General Date of Service: [...] states he did have a CT at [facility] sometime in the past we will try to get that record. Patient has never had a colonoscopy, denies any family history of colon cancer. [facility] Medical History (Updated 12/22/24 @ 07:14 [...] hydrocortisone 2.5 % topical cream 1 applic RI QD-BID PRN hemorrhoids 10/1312/21/24 Rx with perineal [...] Pt Admitted From a Correction, or a Half-Way: No After D/C, Where Do you Plan [...] Dr. Maria Ines Mckoy MD ~* Signed [facility] Work Phone: 1(780) 699-854306-27-2025 Consult note [facility] Medical Records Department [address] [place] [address] Pre-Anesthesia Evaluation 01/21/25 1057 MR#: [id number] Acct: [id number] Name: MARLO ADAMSON Rep #:[id number] : 1960 64 From: Isacc Cavanaugh MD PCP: Dr. Marlo Pollard, DO Status:REG SDC Y Race: C Location: [place] [address] ASA Classification* ASA Classification ASA Classification: 3 [...] possible fistulotomy Anesthesia History Anesthesia History - dynamite shooter: Anesthesia History - dynamite shooter Hx Hospitalization Yes: 11-19 infection 01/07/25 09:36 [...] sips of water?: Yes PONV PONV - dynamite shooter: PONV - dynamite shooter Female No 01/07/25 09:36 HX of Motion [...] 01/21/25 10:25 Respiratory Assessment Respiratory Assessment - dynamite shooter: Respiratory Tract Infection Hx - dynamite shooter Hx Respiratory Tract Infection No 01/07/25 09:36 STOP Sleep Apnea STOP Sleep Apnea - dynamite shooter: STOP Sleep Apnea - dynamite shooter Hx Hypertension Yes 01/07/25 09:36 Hx Sleep [...] Tobacco Use History Tobacco Use History - dynamite shooter: Tobacco Use History - dynamite shooter Tobacco Use Smoking Status Current every day [...] today.) Hematologic Medial History Hematologic Hx - dynamite shooter: 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 Hx of Blood Transfusion No 01/07/25 09:36 [...] confused, unrespo /Reproduction History /Reproductive History - dynamite shooter: /Reproductive Hx- dynamite shooter Hx Now No 01/07/25 09:36 Gestational Age [...] hydrocortisone 2.5 % topical cream 1 applic RI QD-BID PRN hemorrhoids 10/13/24 01/20/25 Rx with [...] Isacc Roy Signature: Date CC: ~ Signed [facility]06-27-2025 History and physical note [facility] Medical Records Department [address] [place] [address] History & Physical Exam 01/21/25 1004 MR#: [id number] Acct: [id number] Name: MARLO ADAMSON Rep #:[id number] : 1960 64 From: Maria Ines Mckoy MD PCP: Dr. Marlo Pollard, DO Status:REG [facility] Location: [place] [address] History and Physical Date of Admission: 01/21/25 12/22/24 0708 MR#: [id number] Acct: [id number] Name: MARLO ADAMSON Rep #: [id number] : 1960 64 From: Maria Ines Mckoy MD PCP: Dr. Marlo Pollard, DO Status: REG [facility] Location: [place] [address] HPI - General General Date of Service: [...] states he did have a CT at [facility] sometime in the past we will try to get that record. Patient has never had a colonoscopy, denies any family history of colon cancer. [facility] Medical History (Updated 12/22/24 @ 07:14 [...] hydrocortisone 2.5 % topical cream 1 applic RI QD-BID PRN hemorrhoids 10/1312/21/24 Rx with perineal [...] Pt Admitted From a Correction, or a Half-Way: No After D/C, Where Do you Plan [...] Dr. Maria Ines Mckoy MD ~* Signed [facility]06-27-2025 [facility] Medical Records Department [address] [place] [address] History Physical Exam 01/21/25 1004 MR#: [id number] Acct: [id number] Name: MARLO ADAMSON Rep #: [id number] : 1960 64 From: Maria Ines Mckoy MD PCP: Dr. Marlo Pollard, Status:REG [facility] Location: [address] History and Physical Date of Admission: 01/21/25 12/22/24 0708 MR#: [id number] Acct: [id number] Name: MARLO ADAMSON Rep #: [id number] : 1960 64 From: Maria Ines Mckoy MD PCP: Dr. Marlo Pollard, Status: REG [facility] Location: [place] [address] HPI - General General Date of Service: [...] states he did have a CT at [facility] sometime in the past we will try to get that record. Patient has never had a colonoscopy, denies any family history of colon cancer. [facility] Medical History (Updated 12/22/24 @ 07:14 [...] hydrocortisone 2.5 % topical cream 1 applic RI QD-BID PRN hemorrhoids 10/13/24 Rx with perineal [...] Cunningham MD) Father Cancer (more content not included)...[facility]05-28-2025 Consult note Author Yuly Champagne [facility] Note Date/Time December 22, 2024 7:25a m [facility] Medical Records Department [address] [place] [address] Pre-Anesthesia Evaluation 12/22/24 0721 MR#: [id number] Acct: [id number] Name: MARLO ADAMSON Rep #:[id number] : 1960 64 From: Yuly Champagne PCP: Dr. 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 History - dynamite shooter Hx Hospitalization Yes: 10/2024 FLU/DIALYSIS 12/22/24 07:09 [...] take am of surgery PONV PONV - dynamite shooter: PONV - dynamite shooter Female No 12/21/24 09:34 HX of Motion [...] 12/22/24 06:33 Respiratory Assessment Respiratory Assessment - dynamite shooter: Respiratory Tract Infection Hx - dynamite shooter Hx Respiratory Tract Infection No 12/22/24 07:09 STOP Sleep Apnea STOP Sleep Apnea - dynamite shooter: STOP Sleep Apnea - dynamite shooter Hx Hypertension Yes: FAIRLY CONTROLLED WITH 12/22/24 [...] Tobacco Use History Tobacco Use History - dynamite shooter: Tobacco Use History - dynamite shooter Tobacco Use Smoking Status Current every day smoker 12/22/24 07:09 Hx Tobacco Use Yes 12/21/24 09:34 Years Smoking Packs Smoked per Day Smoking Cessation Date was within the last 15 years Hx Smoking Cessation Date 12/21/24 09:34 Hx Smoking Cessation Counseling Hematologic Medial History Hematologic Hx - dynamite shooter: 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 Hx of Blood Transfusion No 12/21/24 09:34 [...] confused, unrespo /Reproduction History /Reproductive History - dynamite shooter: /Reproductive Hx- dynamite shooter Hx Now No 12/22/24 07:09 Gestational Age [...] hydrocortisone 2.5 % topical cream 1 applic RI QD-BID PRN hemorrhoids 10/13/24 12/21/24 Rx with [...] Champagne Cosigner Signature: Date CC: ~ Signed [facility] Work Phone: 1(931) 208-459605-28-2025 History and physical note Author Maria Ines Mckoy [facility] Note Date/Time December 22, 2024 7:17a m [facility] Medical Records Department [address] [place] [address] History & Physical Exam 12/22/24707 MR#: [id number] Acct: [id number] Name: MARLO ADAMSON Rep #:[id number] : 1960 64 From: Maria Ines Mckoy MD PCP: Dr. Marlo Pollard, DO Status:[facility] Location: [place] [address] HPI - General General Date of Service: [...] states he did have a CT at [facility] sometime in the past we will try to get that record. Patient has never had a colonoscopy, denies any family history of colon cancer. [facility] Medical History (Updated 12/22/24 @ 07:14 [...] hydrocortisone 2.5 % topical cream 1 applic RI QD-BID PRN hemorrhoids 10/13/24 12/21/24 Rx with [...] Pt Admitted From a Correction, or a Half-Way: No After D/C, Where Do you Plan [...] DO; Dr. Maria Ines Mckoy MD~ Signed [facility] Work Phone: 1(703) 169-574305-28-2025 Procedure note [facility] Medical Records Department [address] [place] [address] Colonoscopy Report MR#: [id number] Acct: [id number] Name: MARLO ADAMSON Rep #:[id number] : 1960 64 From: Maria Ines Mckoy MD PCP: Dr. Marlo Pollard DO Status:REG [facility] Patient Name: Marlo Adamson Procedure Date: 12/22/2024 [...] pathology results. Procedure Code(s): --- Professional --- 78840, PT, Colonoscopy, flexible; with removal of tumor(s), polyp(s), or other lesion(s) by snare technique Diagnosis Code(s): --- Professional --- Z12.11, Encounter for screening for malignant neoplasm of colon K64.2, Third degree hemorrhoids D12.2, Benign neoplasm of ascending colon K57.30, Diverticulosis of large intestine without perforation or abscess without bleeding CPT copyright 2021 [employer]. All rights reserved. The codes documented in this report are preliminary and upon coal digger review may be revised to meet current compliance requirements. MD Maria Ines Patiño MD 12/22/2024 8:44:55 AM This report has been signed electronically. Number of Addenda: 0 Note Initiated On: 12/22/2024 8:03 AM 12/22/24 0844 Date _ Maria Ines Mckoy MD Cosigner Signature: Date (if indicated) CC: Dr. Marlo Pollard, DO; Dr. Maria Ines Mckoy MD ~ Date Dictated: 12/22/24802 Date Transcribed: Tech Ed/Woodshop Teacher: TR Signed [facility]05-28-2025 Procedure note [facility] Medical Records Department [address] [place] [address] Operative Report - CC Letter MR#: [id number] Acct: [id number] Name: MARLO ADAMSON Rep #:[id number] : 1960 64 From: Maria Ines Mckoy MD PCP: Dr. Marlo Pollard, DO Status:REG [facility] 12/22/2024 Marlo Pollard [address] [facility] [place] [address] [place] [address] Re : Colonoscopy procedure for Marlo Adamson [...] MD ~ Date Dictated: 12/22/24802 Date Transcribed: Tech Ed/Woodshop Teacher: TR Signed [facility]05-28-2025 Consult note [facility] Medical Records Department [address] [place] [address] Anesthesia Postop Eval I 12/22/2442 MR#: [id number] Acct: [id number] Name: MARLO ADAMSON Rep #:[id number] : 1960 64 From: Joseph Hu PCP: Dr. Marlo Pollard, DO Status:REG SDC Y Race: C Location: [address] Anesthesia: Postop Eval I Current Vital [...] Joseph Roy Signature: Date CC: ~ Signed [facility]05-28-2025 Consult note [facility] Medical Records Department [address] [place] [address] Pre-Anesthesia Evaluation 12/22/24720 MR#: [id number] Acct: [id number] Name: MARLO ADAMSON Rodrigo Rep #:[id number] : 1960 64 From: Yuly Champagne PCP: Dr. Marlo Pollard, DO Status:REG SDC Y Race: C Location: [place] [address] ASA Classification* ASA Classification ASA Classification: 3 [...] Procedure(s): COLONOSCOPY Anesthesia History Anesthesia History - dynamite shooter: Anesthesia History - dynamite shooter Hx Hospitalization Yes: 10/2024 FLU/DIALYSIS 12/22/24 07:09 [...] take am of surgery PONV PONV - dynamite shooter: PONV - dynamite shooter Female No 12/21/24 09:34 HX of Motion [...] 12/22/24 06:33 Respiratory Assessment Respiratory Assessment - dynamite shooter: Respiratory Tract Infection Hx - dynamite shooter Hx Respiratory Tract Infection No 12/22/24 07:09 STOP Sleep Apnea STOP Sleep Apnea - dynamite shooter: STOP Sleep Apnea - dynamite shooter Hx Hypertension Yes: FAIRLY CONTROLLED WITH 12/22/24 [...] Tobacco Use History Tobacco Use History - dynamite shooter: Tobacco Use History - dynamite shooter Tobacco Use Smoking Status Current every day smoker 12/22/24 07:09 Hx Tobacco Use Yes 12/21/24 09:34 Years Smoking Packs Smoked per Day Smoking Cessation Date was within the last 15 years Hx Smoking Cessation Date 12/21/24 09:34 Hx Smoking Cessation Counseling Hematologic Medial History Hematologic Hx - dynamite shooter: 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 Hx of Blood Transfusion No 12/21/24 09:34 [...] confused, unrespo /Reproduction History /Reproductive History - dynamite shooter: /Reproductive Hx- dynamite shooter Hx Now No 12/22/24 07:09 Gestational Age [...] hydrocortisone 2.5 % topical cream 1 applic RI QD-BID PRN hemorrhoids 10/13/24 12/21/24 Rx with [...] Yuly Roy Signature: Date CC: ~ Signed [facility]05-28-2025 History and physical note [facility] Medical Records Department [address] [facility] [place] [address] History & Physical Exam 12/22/24707 MR#: [id number] Acct: [id number] Name: MARLO ADAMSON Rep #:[id number] : 1960 64 From: Maria Ines Mckoy MD PCP: Dr. Marlo Pollard, DO Status:[facility] Location: [place] [address] HPI - General General Date of Service: [...] [facility] we will try to get that record. Patient has never had a colonoscopy, denies any family history of colon cancer. [facility] Medical History (Updated 12/22/24 @ 07:14 [...] hydrocortisone 2.5 % topical cream 1 applic RI QD-BID PRN hemorrhoids 10/13/24 12/21/24 Rx with [...] Pt Admitted From a Correction, or a Half-Way: No After D/C, Where Do you Plan [...] DO; Dr. Maria Ines Mckoy MD~ Signed [facility]05-28-2025 [facility] Medical Records Department [address] [place] [address] History Physical Exam 12/22/24 0708 MR#: [id number] Acct: [id number] Name: MARLO ADAMSON Rep #: [id number] : 1960 64 From: Maria Ines Mckoy MD PCP: Dr. Marlo Polalrd DO Status:[facility] Location: [place] [address] HPI - General General Date of Service: [...] states he did have a CT at [facility] sometime in the past we will try to get that record. Patient has never had a colonoscopy, denies any family history of colon cancer. [facility] Medical History (Updated 12/22/24 @ 07:14 [...] hydrocortisone 2.5 % topical cream 1 applic RI QD-BID PRN hemorrhoi ds 10/13/24 12/21/24 Rx [...] of cardiac catheterization Hist (more content not included)...[facility]04-08-2025 Discharge summary Author Himanshu Almaguer [facility] Note Date/Time November 02, 2024 11:3 2am [facility] Medical Records Department [address] [place] [address] Discharge Summary 11/02/24 1124 MR#: [id number] Acct: [id number] Name: JUAN DIEGOMARLO Rodrigo Rep #:[id number] : 1960 64 From: Himanshu Almaguer DO PCP: Dr. Marlo Pollard DO Status:ADM IN Location: [place] [address] Providers Date of Admission: 10/31/24 Primary Care [...] Pt had issue with dialysis line today. [place] that the line clotted off due to [...] cream with perineal applicator (Proctozone-HC) 1 applic RI QD-BID PRN hemorrhoids #30 grams 10/13/24 oxycodone [...] 10/31/24 17:11 RMA (Rec: 10/31/24 17:11 RMA [id number]) Nutrition Malnutrition Evidence of Yes Malnutrition Exists [...] 73.4 H, Lymph % (Auto) 12.6 L, [place] % (Auto) 9.8, Eos % (Auto) 1.7, [...] Primary Care Provider: Marlo Pollard Consulting Providers: Elidai Cunningham; Ying Shirley; Chirag Lucero Discharge Orders/Prescriptions [...] % cream with perineal applicator 1 applic RI QD-BID PRN (Reason: hemorrhoids) Qty: 30 0RF [...] Self Care Charges/Coding Visit Charges Inpatient E&M: 10072 Disch Hosp >30min 11/02/24 1132 <Electronically signed by Himanshu Almaguer DO> Cosigner Signature (if applicable): CC: Dr. Himanshu Almaguer DO; Dr. Marlo Pollard DO~ Signed [facility] Work Phone: 1(622) 382-910004-08-2025 Progress note Author Himanshu Almaguer [facility] Note Date/Time November 02, 2024 11:2 4am [facility] Medical Records Department [address] [place] [address] Progress Note - Hospitalist 11/02/24 0711 MR#: [id number] Acct: [id number] Name: MARLO ADAMSON Rep #:[id number] : 1960 64 From: Himanshu Almaguer DO PCP: Dr. Marlo Pollard DO Status:ADM IN Location: [facility] AN436-9 Reason for Visit Reason for Visit: Diagnoses [...] 10/31/24 17:11 RMA (Rec: 10/31/24 17:11 RMA [id number]) Nutrition Malnutrition Evidence of Yes Malnutrition Exists [...] Pt had issue with dialysis line today. [place] that the line clotted off due to no heparinization. No need for fistulagram at this time. DW Dr. Shirley who is going to try to get him heparin for home dialysis. He may also try to get him a fistulagram as outpt. VTE prophylaxis: SQ heparin. 11/02/24 1124 <Electronically signed by Himanshu Almaguer DO> Cosigner Signature (if applicable): CC: ~ Signed [facility] Work Phone: [phone]) 656-976904-08-2025 Consult note Author Maranda Bustamante [facility] Note Date/Time November 02, 2024 11:0 0am [facility] Medical Records Department [address] [place] [address] Consultation - Nephrology 11/01/24 1205 MR#: [id number] Acct: [id number] Name: MARLO ADAMSON Rep #:[id number] : 1960 64 From: Maranda WORTHINGTON PCP: Dr. Marlo Pollard, DO Status:ADM IN Location: [place] RA848-3 Assessment & Plan Assessment/Plan (1) ESRD (end [...] was poor and he has lost weight. [facility] Medical History (Updated 11/01/24 @ 12:07 [...] hydrocortisone 2.5 % topical cream 1 applic RI QD-BID PRN hemorrhoids 10/13/24 Unknown Rx with [...] 10/31/24 17:11 RMA (Rec: 10/31/24 17:11 RMA [id number]) Nutrition Malnutrition Evidence of Yes Malnutrition Exists [...] 78.8 H, Lymph % (Auto) 11.3 L, [place] % (Auto) 7.5, Eos % (Auto) 1.1, [...] MD> CC: Dr. Marlo Pollard, ~ Signed [facility] Work Phone: 1(261) 494-340404-08-2025 Progress note [facility] Medical Records Department [address] [place] [address] Progress Note - Nephrology 11/02/24 1216 MR#: [id number] Acct: [id number] Name: MARLO ADAMSON Rep #:[id number] : 1960 64 From: Ying alfaro MD PCP: Dr. Marlo Pollard, Status:ADM IN Location: [place] [address]-1 Subjective Subjective no new complaints Objective Data [...] 10/31/24 17:11 RMA (Rec: 10/31/24 17:11 RMA [id number]) Nutrition Malnutrition Evidence of Yes Malnutrition Exists [...] 73.4 H, Lymph % (Auto) 12.6 L, [place] % (Auto) 9.8, Eos % (Auto) 1.7, [...] Cosigner Signature (if applicable): CC: ~ Signed [facility]04-08-2025 Discharge summary [facility] Medical Records Department [address] [place] [address] Discharge Summary 11/02/24 1124 MR#: [id number] Acct: [id number] Name: MARLO ADAMSON Rep #:[id number] : 1960 64 From: Himanshu Almaguer DO PCP: Dr. Marlo Pollard DO Status:ADM IN Location: [place] [address] Providers Date of Admission: 10/31/24 Primary Care [...] Pt had issue with dialysis line today. [place] that the line clotted off due to [...] cream with perineal applicator (Proctozone-HC) 1 applic RI QD-BID PRN hemorrhoids #30 grams 10/13/24 oxycodone [...] 10/31/24 17:11 RMA (Rec: 10/31/24 17:11 RMA [id number]) Nutrition Malnutrition Evidence of Yes Malnutrition Exists [...] 73.4 H, Lymph % (Auto) 12.6 L, [place] % (Auto) 9.8, Eos % (Auto) 1.7, [...] Pollard Consulting Providers: Elidia Cunningham; Ying Shirley; Chriag Lucero Discharge Orders/Prescriptions Prescriptions: New guaifenesin [Mucinex] [...] % cream with perineal applicator 1 applic RI QD-BID PRN (Reason: hemorrhoids) Qty: 30 0RF [...] Self Care Charges/Coding Visit Charges Inpatient E&M: 43917 Disch Hosp >30min 11/02/24 1132 Cosigner Signature (if applicable): CC: Dr. Himanshu Almaguer DO; Dr. Marlo Pollard DO~ Signed [facility]04-08-2025 [facility] Medical Records Department [address] [place] [address] Discharge Summary 11/02/24 1124 MR#: [id number] Acct: [id number] Name: MARLO ADAMSON Rep #: [id number] : 1960 64 From: Himanshu Almaguer DO PCP: Dr. Marlo Pollard DO Status:ADM IN Location: [place] [address] Providers Date of Admission: 10/31/24 Primary Care [...] Pt had issue with dialysis line today. [place] that the line clotted off due to [...] cream with perineal applicator (Proctozone-HC) 1 applic RI QD-BID PRN hemorrhoids #30 grams 10/13/24 oxycodone [...] 10/31/24 17:11 RMA (Rec: 10/31/24 17:11 RMA [id number]) Nutrition Malnutrition Evidence of Yes Malnutrition Exists [...] 73.4 H, Lymph % (Auto) 12.6 L, [place] % (Auto) 9.8, Eos % (Auto) 1.7, [...] Sputum, Expectorated/Coughed Resp (more content not included)... [facility]04-08-2025 Progress note [facility] Medical Records Department [address] [place] [address] Progress Note - Hospitalist 11/02/24710 MR#: [id number] Acct: [id number] Name: MARLO ADAMSON Rodrigo Rep #:[id number] : 1960 64 From: Himanshu Almaguer DO PCP: Dr. Marlo Pollard, DO Status:ADM IN Location: [place] IB541-2 Reason for Visit Reason for Visit: Diagnoses [...] 10/31/24 17:11 RMA (Rec: 10/31/24 17:11 RMA [id number]) Nutrition Malnutrition Evidence of Yes Malnutrition Exists [...] Pt had issue with dialysis line today. [place] that the line clotted off due to no heparinization. No need for fistulagram at this time. DW Dr. Shirley who is going to try to get him heparin for home dialysis. He may also try to get him a fistulagram as outpt. VTE prophylaxis: SQ heparin. 11/02/24 1124 Cosigner Signature (if applicable): CC: ~ Signed [facility]04-08-2025 Consult note [facility] Medical Records Department [address] [place] [address] Consultation - Nephrology 11/01/24 1205 MR#: [id number] Acct: [id number] Name: MARLO ADAMSON Rep #:[id number] : 1960 64 From: Maranda mcmahan BRIDGE MAINTENANCE WORKER-C PCP: Dr. Marlo Pollard, DO Status:ADM IN Location: [facility] QH420-6 Assessment & Plan Assessment/Plan (1) ESRD (end [...] was poor and he has lost weight. [facility] Medical History (Updated 11/01/24 @ 12:07 [...] hydrocortisone 2.5 % topical cream 1 applic RI QD-BID PRN hemorrhoids 10/13/24 Unknown Rx with [...] 10/31/24 17:11 RMA (Rec: 10/31/24 17:11 RMA [id number]) Nutrition Malnutrition Evidence of Yes Malnutrition Exists [...] 78.8 H, Lymph % (Auto) 11.3 L, [place] % (Auto) 7.5, Eos % (Auto) 1.1, [...] 1100 CC: Dr. Marlo Pollard, ~ Signed [facility]04-07-2025 Consult note Author Fritz Moya [facility] Note Date/Time November 01, 2024 3:19 pm [facility] Medical Records Department [address] [place] [address] Pharmacokinetic/Renal -Consult 11/01/24 1310 MR#: [id number] Acct: [id number] Name: MARLO ADAMSON Rep #:[id number] : 1960 64 From: Fritz Moya PCP: Dr. Marlo Pollard, Status:ADM IN Y Location: [place] [address] Consult Antibiotic Management Pharmacy has been consulted [...] Fritz simon> Date _ Fritz Moya 11/01/24 3279 <Electronically signed by Himanshu Almaguer DO> Cosigner Signature (if applicable): Date Himanshu Almaguer DO CC: ~ Signed [facility] Work Phone: 1(668) 828-936204-07-2025 Progress note Author Himanshu Almaguer [facility] Note Date/Time November 01, 2024 1:51 pm [facility] Medical Records Department [address] [place] [address] Progress Note - Hospitalist 11/01/24 0750 MR#: [id number] Acct: [id number] Name: MARLO ADAMSON Rep #:[id number] : 1960 64 From: Himanshu Almaguer DO PCP: Dr. Marlo Pollard, Status:[facility] Reason for Visit Reason for Visit: Diagnoses [...] 10/31/24 17:11 RMA (Rec: 10/31/24 17:11 RMA [id number]) Nutrition Malnutrition Evidence of Yes Malnutrition Exists [...] 84.6 H, Lymph % (Auto) 6.7 L, [place] % (Auto) 7.3, Eos % (Auto) 0.1, [...] 78.8 H, Lymph % (Auto) 11.3 L, [place] % (Auto) 7.5, Eos % (Auto) 1.1, [...] Pt had issue with dialysis line today. [place] that the line clotted off due to no heparinization. No need for fistulagram at this time. VTE prophylaxis: SQ heparin. Charges/Coding Visit Charges Inpatient E&M: 73012 Subs Hosp L2 11/01/24 0521 <Electronically signed by Himanshu Almaguer DO> Cosigner Signature (if applicable): CC: ~ Signed [facility] Work Phone: 1(306) 513-415404-07-2025 Consult note [facility] Medical Records Department [address] [place] [address] Pharmacokinetic/Renal -Consult 11/01/24 1310 MR#: [id number] Acct: [id number] Name: MARLO ADAMSON Rep #:[id number] : 1960 64 From: Fritz Moya PCP: Dr. Marlo Pollard, DO Status:ADM IN Y Location: [facility] HC778-0 Consult Antibiotic Management Pharmacy has been consulted [...] Date Himanshu Almaguer DO CC: ~ Signed [facility]04-07-2025 Progress note [facility] Medical Records Department [address] [place] [address] Progress Note - Hospitalist 11/01/24 0750 MR#: [id number] Acct: [id number] Name: MARLO ADAMSON Rep #:[id number] : 1960 64 From: Himanshu Almaguer DO PCP: Dr. Marlo Pollard, DO Status:ADM [facility] Reason for Visit Reason for Visit: Diagnoses [...] 10/31/24 17:11 RMA (Rec: 10/31/24 17:11 RMA [id number]) Nutrition Malnutrition Evidence of Yes Malnutrition Exists [...] 84.6 H, Lymph % (Auto) 6.7 L, [place] % (Auto) 7.3, Eos % (Auto) 0.1, [...] 78.8 H, Lymph % (Auto) 11.3 L, [place] % (Auto) 7.5, Eos % (Auto) 1.1, [...] Pt had issue with dialysis line today. [place] that the line clotted off due to no heparinization. No need for fistulagram at this time. VTE prophylaxis: SQ heparin. Charges/Coding Visit Charges Inpatient E&M: 62920 Subs Hosp L2 11/01/24 1351 Cosigner Signature (if applicable): CC: ~ Signed [facility]04-06-2025 Progress note Author Chirag Lucero [facility] Note Date/Time October 31, 2024 7:03 pm [facility] Medical Records Department [address] [place] [address] Progress Note - Hospitalist 10/31/24 190 MR#: [id number] Acct: [id number] Name: MARLO ADAMSON Rep #:[id number] : 1960 64 From: Chirag Dixon PCP: Dr. Marlo Pollard, DO Status:ADM IN [facility] Note 64-year-old gentleman was admitted with [...] nasal screen. Denies prior history of MRSA. Systems Test Analyst consulted. On 3 L of oxygen. Did not have dialysis nurse today but I do not see an urgent need of dialysis today can be dialyzed early in the morning. Discussed with Dr. Shirley Visit Charges Inpatient E&M: 35074 Subs Hosp L1 10/31/24 1228 <Electronically signed [...] Cosigner Signature (if applicable): cc: ~* Signed [facility] Work Phone: 1(132) 697-211104-06-2025 Progress note [facility] Medical Records Department [address] [place] [address] Progress Note - Hospitalist 10/31/241901 MR#: [id number] Acct: [id number] Name: MARLO ADAMSON Rodrigo Rep #:[id number] : 1960 64 From: Chirag Dixon PCP: Dr. Marlo Pollard, DO Status:ADM IN Location: [facility] DY938-7 Hospitalist Note 64-year-old gentleman was admitted with [...] nasal screen. Denies prior history of MRSA. Systems Test Analyst consulted. On 3 L of oxygen. Did not have dialysis nurse today but I do not see an urgent need of dialysis today can be dialyzed early in the morning. Discussed with Dr. Shirley Visit Charges Inpatient E&M: 21792 Subs Hosp L1 10/31/24 1228 Cosigner Signature [...] Cosigner Signature (if applicable): cc: ~* Signed [facility]04-06-2025 Progress note Author Ying Shirley [facility] Note Date/Time October 31, 2024 11:5 6am [facility] Medical Records Department [address] [place] [address] Progress Note 10/31/24 1148 MR#: [id number] Acct: [id number] Name: MARLO ADAMSON Rep #:[id number] : 1960 64 From: Ying alfaro MD PCP: Dr. Marlo Pollard, DO Status:ADM IN Location: [facility] BJ189-3 Progress Note patient is known to me. [...] Signature (if applicable): Date cc: ~* Signed [facility] Work Phone: 1(960) 616-224204-06-2025 Progress note [facility] Medical Records Department [address] [place] [address] Progress Note 10/31/24 1148 MR#: [id number] Acct: [id number] Name: MARLO ADAMSON Rep #:[id number] : 1960 64 From: Ying alfaro MD PCP: Dr. Marlo Pollard, DO Status:ADM IN Location: [facility] QZ956-0 Progress Note patient is known to me. [...] Signature (if applicable): Date cc: ~* Signed [facility]04-06-2025 History and physical note Author Elidia Cunningham [facility] Note Date/Time October 31, 2024 4:10 am [facility] Medical Records Department [address] [place] [address] H&P Exam - Hospitalist 10/31/24 0347 MR#: [id number] Acct: [id number] Name: MARLO ADAMSON Rep #:[id number] : 1960 64 From: Elidia Cunningham MD PCP: Dr. Marlo Pollard, DO Status:ADM IN Location: [facility] EP275-6 HPI - General General Date of Admission: 10/31/24 Date of Service: 10/31/24 Chief Complaint: Cough, congestion, dyspnea, recent outpatient abx. HPI Narrative The patient is a 64-year-old male with past medical history M w/ PMHx: PCKD w/ ESRD (T-F), CAD s/p PCI, HTN, HLD, GERD, Tobacco use, Hx VTE (DVT) who presents to the [facility] ED on 10/31/24 with congestion, fatigue, malaise, [...] the ED patient ministered IV Zosyn therapy. [facility] Medical History (Updated 10/31/24 @ 04:07 [...] hydrocortisone 2.5 % topical cream 1 applic RI QD-BID PRN hemorrhoids 10/13/24 Unknown Rx with [...] (Auto) 85.8 H, Lymph % (Auto) 5.3 L,[place] % (Auto) 7.1, Eos % (Auto) 0.1, [...] pleural effusion. Mild elevation right [facility] & Plan Assessment/Plan (1) Hypoxemia: (2) Pneumonia: (3) Failure of outpatient treatment: PLAN: Plan The patient is a 64-year-old male with past medical history M w/ PMHx: PCKD w/ ESRD, CAD s/p PCI, HTN, HLD, GERD, Tobacco use, Hx VTE (DVT) who presents to [facility] ED on 10/31/24 with congestion, fatigue, malaise, [...] Patient does not have healthcare power of trade mark attorney or living will in place but he notes that he would want his ex- Nabila Triplett to be his medical decision-maker if necessary. Discussed CODE status at length including difference between FULL code, DNR-CCA and DNR-CC status. Following discussions about the differences in these status, requested Full Code status. Advanced CarePlanning Face to Face Time: 16 minutes. Charges/Coding Visit Charges Inpatient E&M: 43328 Init Hosp L3 Procedures Hospitalists Procedures: 52860 Advncd Care Plan 30 Min 10/31/24 0410 <Electronically signed by Elidia Cunningham MD> Cosigner Signature (if applicable): CC: Dr. Elidia Cunningham MD; Dr. Marlo Pollard, ~ Signed [facility] Work Phone: 1(747) 841-680704-06-2025 Discharge summary Author Jimy Jarquin [facility] Note Date/Time October 31, 2024 3:46 am [facility] Medical Records Department [address] [place] [address] Emergency Department Summary 10/31/24 MR#: [id number] Acct: [id number] Name: MARLO ADAMSON Rep #:[id number] : 1960 64 From: Jimy Jarquin MD [...] for this and has no other complaints. [facility] Medical History Wears dentures Alcohol use [...] hydrocortisone 2.5 % topical cream 1 applic RI QD-BID PRN hemorrhoids 10/13/24 Unknown Rx with [...] 85.8 H Lymph % (Auto) 5.3 L [place] % (Auto) 7.1 Eos % (Auto) 0.1 [...] pleural effusion. Mild elevation right Reading [facility] Discussion w/another healthcare provider: Hospitalist Discharge [...] % cream with perineal applicator 1 applic RI QD-BID PRN (Reason: hemorrhoids) Qty: 30 0RF [...] DO [Primary Care Provider] - Print Language: Bruneian Disposition Disposition: Acute Care [facility] What to do if you have Problems For any increased pain, shortness of breath, bleeding, nausea or vomiting, chestpain, or any unexpected problems, contact your Primary Care Provider. Call [employer] [facility] ([phone]) or report to the closest Emergency Room. Call 911 if necessary. 10/31/24345 <Electronically signed by Jimy Jarquin MD> Cosigner Signature (if applicable): CC: Dr. Marlo Pollard, DO ~ Signed [facility] Work Phone: [phone]) 207-368804-06-2025 History and physical note [facility] Medical Records Department [address] [place], [place] [address] [place] [address] H&P Exam - Hospitalist 10/31/24 0347 MR#: [id number] Acct: [id number] Name: MARLO ADAMSON Rep #:[id number] : 1960 64 From: Elidia Cunningham MD PCP: Dr. Marlo Pollard, Status:ADM IN Location: [facility] VK035-4 HPI - General General Date of Admission: 10/31/24 Date of Service: 10/31/24 Chief Complaint: Cough, congestion, dyspnea, recent outpatient abx. HPI Narrative The patient is a 64-year-old male with past medical history M w/ PMHx: PCKD w/ ESRD (T-F), CAD s/p PCI, HTN, HLD, GERD, Tobacco use, Hx VTE (DVT) who presents to the [facility] ED on 10/31/24 with congestion, fatigue, malaise, [...] the ED patient ministered IV Zosyn therapy. [facility] Medical History (Updated 10/31/24 @ 04:07 [...] hydrocortisone 2.5 % topical cream 1 applic RI QD-BID PRN hemorrhoids 10/13/24 Unknown Rx with [...] (Auto) 85.8 H, Lymph % (Auto) 5.3 L,[place] % (Auto) 7.1, Eos % (Auto) 0.1, [...] use, Hx VTE (DVT) who presents to [facility] ED on 10/31/24 with congestion, fatigue, malaise, [...] Patient does not have healthcare power of trade mark attorney or living will in place but henotes that he would want his ex- Nabila Triplett to be his medical decision-maker if necessary. Discussed CODE status at length including difference between FULL code, DNR-CCA and DNR-CC status. Following discussions about the differences in these status, requested Full Code status. Advanced CarePlanning Face to Face Time: 16 minutes. Charges/Coding Visit Charges Inpatient E&M: 27005 Init Hosp L3 Procedures Hospitalists Procedures: 58718 Advncd Care Plan 30 Min 10/31/24 0410 Cosigner Signature (if applicable): CC: Dr. Elidia Cunningham MD; Dr. Marlo Pollard, ~ Signed [facility]04-06-2025 Discharge summary [facility] Medical Records Department [address] [place] [address] Emergency Department Summary 10/31/24 MR#: [id number] Acct: [id number] Name: MARLO ADAMSON Rep #:[id number] : 1960 64 From: Jimy Jarquin MD [...] for this and has no other complaints. [facility] Medical History Wears dentures Alcohol use [...] hydrocortisone 2.5 % topical cream 1 applic RI QD-BID PRN hemorrhoids 10/13/24 Unknown Rx with [...] 85.8 H Lymph % (Auto) 5.3 L [place] % (Auto) 7.1 Eos % (Auto) 0.1 [...] pleural effusion. Mild elevation right Reading [facility] Discussion w/another healthcare provider: Hospitalist Discharge [...] % cream with perineal applicator 1 applic RI QD-BID PRN (Reason: hemorrhoids) Qty: 30 0RF [...] DO [Primary Care Provider] - Print Language: Bruneian Disposition Disposition: Acute Care Hospital [facility] What to do if you have Problems For any increased pain, shortness of breath, bleeding, nausea or vomiting, chestpain, or any unexpected problems, contact your Primary Care Provider. Call [facility] ([phone]) or report tothe closest Emergency Room. Call 911 if necessary. 10/31/24 0346 Cosigner Signature (if applicable): CC: Dr. Marlo Pollard DO ~ Signed [facility]04-06-2025 Radiology Diagnostic study note [facility] Imaging Services [address] [place] [address] Chest PA and Lateral MR#: [id number] Acct: [id number] Name: MARLO ADAMSON Rep #: [id number] : 1960 M 64 From: Dominga Graf DO PCP: Dr. Marlo Pollard DO Status: PRE ER Study:Chest PA and Lateral Date of Exam: 10/31/24 Exam# [id number] Ordering Dr: Juliane Jarquin MD PROCEDURE: PA [...] Jarquin MD; Dr. Marlo Pollard DO ~ Tech Ed/Woodshop Teacher: Signed [facility]03-19-2025 Evaluation note* Diagnosis Onset Date Resolution Status Admit Date Anal fistula acute October 13, 2024 1:52pm Hemorrhoids, internal, with bleeding acute October 13, 2024 1:52pm Screening for colon cancer acute October 13, 2024 1:52pm Failure of outpatient treatment acut e October 31, 2024 3:49am Hypoxemia acute October 31 3:49am Pneumonia acute October 31 3:49am [facility] Work Phone: [phone]) [phone] Evaluation note* Diagnosis Onset Date Resolution Status [...] 31 3:49am Pneumonia acute October 31 3:49am [facility] Work Phone: 1(368) 230-493203-19-2025 Evaluation note* Diagnosis Onset Date Resolution Status [...] colon cancer resolved December 22, 2024 6:11am [facility] Work Phone: 1(563) [phone] Evaluation note* Diagnosis Onset Date Resolution Status [...] S/P hemorrhoidectomy acute January 30, 2025 4:30am [facility] Work Phone: 1(229) 921-208511-09-2021 NoteHNO ID: [id number] Author: Casey Castañeda Population Health Navigator Service: [...] future healthcare decisions with a power of trade mark attorney, living will, or advance directives? No. Please bring a copy to your next appointment or email to Referrals: N/A Message Sent to Practice: NO Navigation Signature: Casey Castañeda Population Health Navigator June 05, 2021 2:09 [facility]11-09-2021 NotePatient Outreach (NETNAV) MARLO ADAMSON ([id number]) 1960 M Date Time Provider Department 06/05/21 [...] future healthcare decisions with a power of trade mark attorney, living will, or advance directives? No. Please bring a copy to your next appointment or email to [email or web address] Referrals: N/A Message Sent to Practice: [...] and abscess of unspecified site [L03*01/29/2007 12/15/2018 [place] NOS EPISODE CARE UNSPEC [I21.9] 02/03/2007 Hematuria [...] [facility] on 06/05/21[facility]08-31-2021 NoteHNO ID: [id number] Author: Mary Casillas MA Service: ? Author Type: Fiscal Manager Type: Progress Notes Filed: 03/27/2021 1:05 PM [...] future healthcare decisions with a power of trade mark attorney, living will, or advance directives? Referrals: N/A Message Sent to Practice: NO Navigation Signature: Mary Casillas MA March 27, 2021 1:01 [facility]08-31-2021 NotePatient Outreach (AMBCMG) MARLO ADAMSON ([id number]) 1960 M Date Time Provider Department 03/27/21 [...] future healthcare decisions with a power of trade mark attorney, living will, or advance directives? Referrals: [...] and abscess of unspecified site [L03*01/29/2007 12/15/2018 [place] NOS EPISODE CARE UNSPEC [I21.9] 02/03/2007 Hematuria [...] 15-29*06/17/2016 Encounter Status:Closed by MARY CASILLAS on 03/27/21[facility]07-06-2021 NoteHNO ID: [id number] Author: Mariah Johnson Ma Service: ? Author Type: ? Type: Progress Notes Filed: 01/30/2021 3:08 PM Note Text: POPULATION HEALTH NAVIGATION OUTREACH Action/FYI Left message for patient to call back regarding scheduling/care gaps. Letter Sent. Letter mailed 01/30/21 - Navigation Signature: Mariah Johnson Ma January 30, 2021 2:31 [facility]06-29-2021 NotePatient Outreach (NETNAV) MARLO ADAMSON ([id number]) 1960 M Date Time Provider Department 01/23/21 [...] future healthcare decisions with a power of trade mark attorney, living will, or advance directives? No. [...] and abscess of unspecified site [L03*01/29/2007 12/15/2018 [place] NOS EPISODE CARE UNSPEC [I21.9] 02/03/2007 Hematuria [...] Encounter Status:Closed by MARIAH JOHNSON MA on 01/30/21[facility]06-29-2021 NoteHNO ID: [id number] Author: Mariah Johnson Ma Service: ? Author [...] future healthcare decisions with a power of trade mark attorney, living will, or advance directives? No. Are you interested in a follow-up phone call or visit with a doctor for more information about planning for future health care decisions? No Referrals: N/A Message Sent to Practice: NO Navigation Signature: Mariah Elizabeth Justice January 23, 2021 10:36 [facility]03-24-2021 NoteHNO ID: [id number] Author: Radha Casillas [facility] Service: ? Author Type: ? Type: Progress Notes Filed: 10/18/2020 4:45 PM Note Text: Contacted patient he declined, mailed colonoscopy letter. -Radha Casillas [facility]03-23-2021 NoteHNO ID: [id number] Author: Dave Viera (Rn) NISHA Martin Service: ? Author Type: Registered Nurse Type: Progress Notes Filed: 10/18/2020 4:45 PM Note Text: Pt overdue for screening colonoscopy. Pt needs office visit prior due to medical history. Please call pt and schedule with BRIDGE MAINTENANCE WORKER or PA. Dave Martin, [facility]-2021 NotePatient Outreach (FAMPWS) MARLO ADAMSON ([id number]) 1960 M Date Time Provider Department 10/17/20 DAVE MARTIN (NISHA)CHUCK During your visit today, we recorded the following information about you: Dave Martin RN, RN 10/18/2020 4:45 PM Signed Pt overdue for screening colonoscopy. Pt needs office visit prior due to medical history. Please call pt and schedule with BRIDGE MAINTENANCE WORKER or PA. NISHA [place] Pss 10/18/2020 4:45 [...] and abscess of unspecified site [L03*01/29/2007 12/15/2018 [place] NOS EPISODE CARE UNSPEC [I21.9] 02/03/2007 Hematuria [...] 15-29*06/17/2016 Encounter Status:Closed by RADHA RENTERIA on 10/18/20[facility]12-08-2020 History of Present illness Narrative* Fransisca [...] 04, 2020 5:39 PM [facility] Consult note Author Joseph Hu [facility] Note Date/Time December 22, 2024 8:43a [facility] Medical Records Department [address] [place] [address] Anesthesia Postop Eval I 12/22/2442 MR#: [id number] Acct: [id number] Name: MARLO ADAMSON Rep #:[id number] : 1960 64 From: Joseph Hu PCP: Dr. Marlo Pollard, DO Status:REG SDC Y Race: C Location: [place] [address] Anesthesia: Postop Eval I Current Vital Signs [...] Joseph Roy Signature: Date CC: ~ Signed [facility] Work Phone: Consult note Author Rosy Daley [facility] Note Date/Time January 21, 2025 2:30 pm [facility] Medical Records Department [address] [place] [address] Anesthesia Postop Eval I 01/21/25 1429 MR#: [id number] Acct: [id number] Name: MARLO ADAMSON Rep #:[id number] : 1960 64 From: Rosy Garcia PCP: Dr. Marlo Pollard, DO Status:REG [facility] Y Race: C Location: [place] [address] Anesthesia: Postop Eval I Current Vital Signs [...] Rosy Larkinigner Signature: Date CC: ~ Signed [facility] Work Phone: Consult note Author Greg Cortes [facility] Note Date/Time January 30, 2025 5:25a m [facility] Medical Records Department [address] [place] [address] Pre-Anesthesia Evaluation 01/30/25 0524 MR#: [id number] Acct: [id number] Name: MARLO ADAMSON Rep #:[id number] : 1960 64 From: Greg Cortes MD PCP: Dr. 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: Anesthesia History - dynamite shooter Hx Hospitalization Yes: 11-19 infection 01/07/25 09:36 [...] take am of surgery PONV PONV - dynamite shooter: PONV - dynamite shooter Female HX of Motion Sickness HX of N/V After Surgery Non-Smoker Duration of Surgery greater than 60 minutes Number of Risk Factors PONV Score Height & Weight Height & Weight: Anesthesia: Height & Weight Height 5 ft 10 in 01/30/25 03:30 Weight: 74 kg 01/30/25 03:30 Body Mass Index (BMI) 23.3 01/30/25 03:30 Respiratory Assessment Respiratory Assessment - dynamite shooter: Respiratory Tract Infection Hx - dynamite shooter Hx Respiratory Tract Infection No 01/07/25 09:36 STOP Sleep Apnea STOP Sleep Apnea - dynamite shooter: STOP Sleep Apnea - dynamite shooter Hx Hypertension Yes 01/30/25 03:30 Hx Sleep [...] Tobacco Use History Tobacco Use History - dynamite shooter: Tobacco Use History - dynamite shooter Tobacco Use Smoking Status Current every day smoker 01/30/25 02:19 Hx Tobacco Use Yes 01/07/25 09:36 Years Smoking Packs Smoked per Day Smoking Cessation Date was within the last 15 years Hx Smoking Cessation Date Hx Smoking Cessation No 01/30/25 02:19 Counseling Hematologic Medial History Hematologic Hx - dynamite shooter: 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 Specify any problems Hx of Preganancy in last 3 Months Nurse Filling Out Transfusion & Questions: Date: Time: Patient unable to answer at this time (ie. confused, unrespo /Reproduction History /Reproductive History - dynamite shooter: /Reproductive Hx- dynamite shooter Hx Now Gestational Age (in weeks): EDC: Hx Hx Para Hx Section SAB No 01/07/25 09:36 Active Medications Active Medications: Current Medications Generic Name Dose Route Start Last Admin Trade Name Freq PRN Reason Stop Dose Admin Cefotetan Disodium 2 gm/ 100 mls @ 200 mls/hr 01/30/25 05:14 Sodium Chloride IV 01/30/25 05:43 INTRAOP ONE [facility] Medical History History of hiatal hernia Wears [...] hydrocortisone 2.5 % topical cream 1 applic RI QD-BID PRN hemorrhoids 10/13/24 01/20/25 Rx with [...] MD Cosigner Signature: Date CC: ~ Signed [facility] Work Phone: Discharge summary Author Jimy Jarquin [facility] Note Date/Time October 31, 2024 3:46 am [facility] Medical Records Department [facility] [place] [address] Emergency Department Summary 10/31/24 MR#: [id number] Acct: [id number] Name: MARLO ADAMSON Rep #:[id number] : 1960 64 From: Jimy Jarquin MD [...] for this and has no other complaints. [facility] Medical History Wears dentures Alcohol use [...] hydrocortisone 2.5 % topical cream 1 applic RI QD-BID PRN hemorrhoids 10/13/24 Unknown Rx with [...] 85.8 H Lymph % (Auto) 5.3 L [place] % (Auto) 7.1 Eos % (Auto) 0.1 [...] pleural effusion. Mild elevation right Reading Location: [facility] Management Discussion w/another healthcare provider: Hospitalist [...] % cream with perineal applicator 1 applic RI QD-BID PRN (Reason: hemorrhoids) Qty: 30 0RF [...] DO [Primary Care Provider] - Print Language: Bruneian Disposition Disposition: Acute Care [facility] What to do if you have Problems For any increased pain, shortness of breath, bleeding, nausea or vomiting, chestpain, or any unexpected problems, contact your Primary Care Provider. Call [facility] ([phone]) or report to the closest Emergency Room. Call 911 if necessary. 10/31/24 0346 <Electronically signed by Jimy Jarquin MD> Cosigner Signature (if applicable): CC: Dr. Marlo Pollard DO ~ Signed [facility] Work Phone: Discharge summary Author Herson Victoria [facility] Note Date/Time January 30, 2025 4:51a m [facility] Medical Records Department [address] [place] [address] Emergency Department Summary 01/30/25 MR#: [id number] Acct: [id number] Name: JUAN DIEGOMARLO Rodrigo Rep #:[id number] : 1960 64 From: Herson Wallace PCP: Dr. Marlo Pollard DO Status:[facility] Location: [address] History of Present Illness Chief Complaint: GI Bleed [facility] Medical History (Updated 01/30/25 @ 04:15 by [...] hydrocortisone 2.5 % topical cream 1 applic RI QD-BID PRN hemorrhoids 10/13/24 01/20/25 Rx with [...] history of ESRD, hyperlipidemia, CAD status post MS cardiac catheterization and CABG, on aspirin but [...] reviewed, Vital signs reviewed Constitutional: please see [facility] HENT: MMM Eyes: Pupils equal round and [...] palpable thrill, no overlying erythema Rectal: Performed icu registered nurse in room and verbal consent the patient showed findings as below Neuro: Intact, no focal deficits Skin: No pallor MEDICAL DECISION MAKING: Chief Complaint: please see [facility] External records reviewed: Underwent hemorrhoidectomy and excision of left gluteal sinus tract on 01/21/2025 Factors affecting care: As per [facility] Social determinants of health: none History obtained from others: EMS, general surgery on-call (Dr. Nj) Consults: Dr. Nj [facility] Narrative: The patient was initially hemodynamically stable, afebrile and nontoxic- appearing. Exam with a large amount of blood noted on sheets as well as underwear. Large clot noted initially approximately 6 x 6 cm. Rectal exam performed with icu registered nurse and verbal consent of the patient showed [...] to OR This note was generated with [employer] dictation software. It may contain incorrectwords, spelling, [...] 76.0 H Lymph % (Auto) 12.0 L [place] % (Auto) 8.5 Eos % (Auto) 2.6 [...] Rectal bleeding Disposition Disposition: Acute Care Hospital [facility] What to do if you have Problems For any increased pain, shortness of breath, bleeding, nausea or vomiting, chestpain, or any unexpected problems, contact your Primary Care Provider. Call [facility] ([phone]) or report to the closest Emergency Room. Call 911 if necessary. 01/30/25 0451 <Electronically signed by Herson Victoria DO> Cosigner Signature (if applicable): CC: Dr. Marlo Pollard DO ~ Signed [facility] Work Phone: Evaluation note* Diagnosis Onset Date Resolution Status Chronic renal failure, stage 4 (severe) chronic [facility] Work Phone: Evaluation noteNo assessment information available [facility] Work Phone: Evaluation note* Diagnosis Suspected 2019 novel coronavirus infection documented [facility] this [facility] Author Elidia Cunningham [facility] Note Date/Time October 31, 2024 4:10 am [facility] Medical Records Department [address] [place] [address] H&P Exam - Hospitalist 10/31/24 0347 MR#: [id number] Acct: [id number] Name: JUAN DIEGOMARLO Rodrigo Rep #:[id number] : 1960 64 From: Elidia Cunningham MD PCP: Dr. Marlo Pollard DO Status:ADM IN Location: [facility] [id number] HPI - General General Date of Admission: 10/31/24 Date of Service: 10/31/24 Chief Complaint: Cough, congestion, dyspnea, recent outpatient abx. HPI Narrative The patient is a 64-year-old male with past medical history M w/ PMHx: PCKD w/ ESRD (T-F), CAD s/p PCI, HTN, HLD, GERD, Tobacco use, Hx VTE (DVT) who presents to the [facility] ED on 10/31/24 with congestion, fatigue, malaise, [...] the ED patient ministered IV Zosyn therapy. [facility] Medical History (Updated 10/31/24 @ 04:07 [...] hydrocortisone 2.5 % topical cream 1 applic RI QD-BID PRN hemorrhoids 10/13/24 Unknown Rx with [...] (Auto) 85.8 H, Lymph % (Auto) 5.3 L,[place] % (Auto) 7.1, Eos % (Auto) 0.1, [...] use, Hx VTE (DVT) who presents to [facility] ED on 10/31/24 with congestion, fatigue, malaise, [...] Patient does not have healthcare power of trade mark attorney or living will in place but he notes that he would want his ex- Nabila Triplett to be his medical decision-maker if necessary. Discussed CODE status at length including difference between FULL code, DNR-CCA and DNR-CC status. Following discussions about the differences in these status, requested Full Code status. [facility] Care[facility]anning Face to Face Time: 16 minutes. Charges/Coding Visit Charges Inpatient E&M: 83368 Init Hosp L3 Procedures Hospitalists Procedures: 06209 Advncd Care Plan 30 Min 10/31/24 0410 <Electronically signed by Elidia Cunningham MD> Cosigner Signature (if applicable): CC: Dr. Elidia Cunningham MD; Dr. Marlo Pollard, ~ Signed [facility] Work Phone: History and physical note Author Fili Nj [facility] Note Date/Time January 30, 2025 4:51a m [facility] Medical Records Department [address] [place] [address] History & Physical Exam 01/30/25 0439 MR#: [id number] Acct: [id number] Name: MARLO ADAMSON Rep #:[id number] : 1960 64 From: Fili Dixon PCP: Dr. Marlo Pollard DO Status:[facility] Location: [place] [address] HPI - General General Date of Service: 01/30/25 HPI Narrative MARLO ADAMSON, is a 64 M who presents to [facility] on direction from me after calling the [...] home and administers heparin during each session. [facility] Medical History (Updated 01/30/25 @ 04:15 [...] hydrocortisone 2.5 % topical cream 1 applic RI QD-BID PRN hemorrhoids 10/13/24 01/20/25 Rx with [...] 76.0 H, Lymph % (Auto) 12.0 L, [place] % (Auto) 8.5, Eos % (Auto) 2.6, [...] Nj MD General Surgery Endocrine Surgery Pager: [facility] [address] [place] [address], [facility], [address] [place] [address] Office: [phone] (2) S/P hemorrhoidectomy: Charges/Coding Visit Charges Inpatient E&M: 07080 Init Hosp L2 01/30/25 9812 <Electronically signed by Fili Nj MD> Cosigner Signature (if applicable): CC: Dr. Marlo Pollard, DO; Dr. Fili Nj MD~ Signed [facility] Work Phone: Progress note Author Ying Shirley [facility] Note Date/Time November 02, 2024 12:1 9pm [facility] Medical Records Department [address] [place] [address] Progress Note - Nephrology 11/02/24 1216 MR#: [id number] Acct: [id number] Name: MARLO ADAMSON Rep #:[id number] : 1960 64 From: Ying alfaro MD PCP: Dr. Marlo Pollard DO Status:ADM IN Location: [place] [address] Subjective Subjective no new complaints Objective Data [...] 10/31/24 17:11 RMA (Rec: 10/31/24 17:11 RMA [id number]) Nutrition Malnutrition Evidence of Yes Malnutrition Exists [...] 73.4 H, Lymph % (Auto) 12.6 L, [place] % (Auto) 9.8, Eos % (Auto) 1.7, [...] Cosigner Signature (if applicable): CC: ~ Signed [facility] Work Phone: Reason for referral (narrative)No reason for referral information availableWUniversity [facility] Work Phone: Summary Purpose Family History Relationship Condition Age at Onset Recorded Date/T hilary father Malignant neoplasm Unknown Relationship Condition Age at Onset Recorded Date/T hilary father Malignant neoplasm Unknown brother Cardiac disease Unknown sister Mass of brain Unknown mother Cerebral aneurysm Unknown Advance Directives Advance Directive Response Recorded Date/ Time Living Will Yes June 06, 021 2:53pm Power of School Bus Mechanic Yes June 06, 2021 2:53pm Advance Directive Response Recorded Date/ Time Living Will Yes June 06, 021 1:53pm Power of School Bus Mechanic Yes June 06, 2021 1:53pm Advance Directive Response Recorded Date/ Time Living Will No October 31, 2024 2:04am Do you have a Healthcare Power of School Bus Mechanic? No October 31, 2024 2:04am Advance Directive Response Recorded Date/ Time Living Will No October 31, 2024 4:07am Do you have a Healthcare Power of School Bus Mechanic? No October 31, 2024 4:07am Advance Directive Response Recorded Date/ Time Living Will No October 31, 2024 4:07am Do you have a Healthcare Power of School Bus Mechanic? No October 31, 2024 4:07am Do you have a Healthcare Power of School Bus Mechanic? Yes December 21, 2024 9:34am Advance Directive Response Recorded Date/ Time Living Will No October 31, 2024 4:07am Do you have a Healthcare Power of School Bus Mechanic? No October 31, 2024 4:07am Do you have a Healthcare Power of School Bus Mechanic? No January 07, 2025 9:36am Do you have a Healthcare Power of School Bus Mechanic? Yes December 21, 2024 9:34am Advance Directive Response Recorded Date/ Time Living Will No October 31, 2024 4:07am Do you have a Healthcare Power of School Bus Mechanic? No October 31, 2024 4:07am Do you have a Healthcare Power of School Bus Mechanic? No January 07, 2025 9:36am Do you have a Healthcare Power of School Bus Mechanic? No January 30, 2025 2:19am Do you have a Healthcare Power of School Bus Mechanic? Yes December 21, 2024 9:34am Chief Complaint [...] section and content) DATE CREATED AUTHOR 09/13/2021 [facility] DATE CREATED AUTHOR AUTHOR'S ORGANIZ ATION 01/24/2025 [facility] Goals (unrecognized section and content) [...] MD Attending Provider, Referri ng Provider Active Hospital Chief Executive Officer Relationship Specialty Start Date End Date To [...] 31, 2024 End: November 02, 2024 Dr. Yign Shirley MD Other Provider Active Start: October [...] 2024 End: December 22, 2024 Dr. Marlo Plolard DO Referring Provider Active Start: December 22, [...] or prosecute any alcohol or drug abuse patient.[facility] FOR RECORDS PERTAINING TO PATIENTS WHO ARE [...] BE BASED ON THE PRIMARY CLINICAL RECORDS. [facility] [employer] provides no warranty or guarantee of the accuracy or completeness of information in this document.
--- OUTSIDE RECORDS SUMMARY | 2025-01-30 08:56 | XMS RPT_ITS | CCD ---
Author Organization [facility] Care Team Providers Care Can Striper Name Role Phone Dr. Marlo Pollard Primary Care Provider Dr. Marlo Pollard Referring Provider [phone] Marina FIORE PANel Easley Attending Provider Abiola [...] Leelee CESPEDES, Dr. Spann Referring Provider [phone] Marlo Pollard Referring Unavailable Marlo Pollard Primary Care Unavailable Robotham, Maria Ines Attending Unavailable Marlo Pollard Primary Care Unavailable Robotham, Maria Ines Consulting Unavailable Robotham, Maria Iens Referring Unavailable Robotham, Maria Ines Attending Unavailable [...] Provider Ondina CESPEDES, Dr. Penn Referring Provider [phone] Ondina CESPEDES, Dr. Penn Other Provider [phone] Allergies Allergy Classification Reported Allergen(s) Allergy Type Date of Onset Reaction(s) Facility (8 sources) atorvastatin Drug Allergy 2 MUSCLE ACHE [facility] (1 source) atorvastatin Drug Allergy 0 Other: See Comments [facility] (1 source) atorvastatin Drug Allergy 5 [facility] Repository Medications Current Medications Medication [...] PO daily October 13, 2024 12:00am calcitriol 0.21759 mg oral capsule (5 sources) Vitamin D3 [...] December 21, 2024 9:32am polyethylene glycol 3350 566124 mg / potassium chloride 2970 mg / sodium bicarbonate 6740 mg / sodium chloride 5860 mg / sodium sulfate 91659 mg powder for oral solution (5 sources) [...] Coronary arteriosclerosis; Translations: [Atherosclerotic heart disease of [place] coronary artery without angina pectoris] Onset: 2 [...] Auto (Unsp spec) [#/Vol] 1.29 10*3/uL 0.83-4.51 [facility] Absolute neutrophil countOrd ered By: Herson Victoria on 01-30-2025 Neutrophils (Bld) [#/Vol] 8.2 10*3/uL High 2.0-7.7 [facility] Activated partial thrombopla stin time (aPTT) in platelet poor plasma by coagulation aOrdered By: Herson Victoria on 01-30-2025 aPTT Coag (PPP) [Time] 30.6 s 24.1-36.2 [facility] Anion gap in Serum or Plasma Ordered By: Herson Victoria on 01-30-2025 Anion gap [Moles/Vol] 15 mmol/L 5-15 [facility] Automated lymphocyte count a s percentage of total leukocytesOrdered By: Herson Victoria on 01-30-2025 Lymphocytes/100 WBC Auto (Unsp spec) 12.0 % Low 19-41 [facility] BUN/creatinine ratioOrdered By: Herson Victoria on 01-30-2025 Urea nitrogen/Creatinine [Mass ratio] 5.0 mg/mg Low 10-20 [facility] Basophil percentageOrdered B y: Herson Victoria on 01-30-2025 Basophils/100 WBC (Bld) 0.4 % 0-1 [facility] Carbon dioxide, total [Moles /volume] in Central venous bloodOrdered By: Herson Victoria on 01-30-2025 CO2 [Moles/Vol] 25.4 mmol/L 21.0-32.0 [facility] Chloride assayOrdered By: Ren Victoria on 01-30-2025 Chloride [Moles/Vol] 92 mmol/L Low 98-108 [facility] Eosinophil percentageOrdered By: Herson Victoria on 01-30-2025 Eosinophils/100 WBC (Bld) 2.6 % 0-5 [facility] Erythrocyte distribution wid th ratioOrdered By: Herson Victoria on 01-30-2025 Erythrocyte distribution width (RBC) [Ratio] 14.3 % 11.6-14.6 [facility] Erythrocyte distribution wid th standard deviationOrdered By: Herson Victoria on 01-30-2025 Erythrocyte distribution width (RBC) [Ratio] 48.0 fl High 35.1-43.9 [facility] Glomerular filtration rate ( GFR) estimation/1.73 sq m using serum, plasma, or whole bOrdered By: Herson Victoria on 01-30-2025 GFR/1.73 sq M.predicted among non-blacks MDRD (S/P/Bld) [Vol rate/Area] 7 mL/min/{1.73_m2} Low >60 [facility] Comment on above: mL/min/1.73m2 CKD-EP I Creatinine Equation (2020) Hematocrit Auto (Bld) [Volum e fraction]Ordered By: Herson Victoria on 01-30-2025 Hematocrit (Bld) [Volume fraction] 42.2 % 40-54 [facility] Hemoglobin measurementOrdere d By: Herson Victoria on 01-30-2025 Hemoglobin (Bld) [Mass/Vol] 14.4 g/dL 13.0-16.5 [facility] Immature granulocytes/100 WB C Auto (Bld)Ordered By: Herson Victoria on 01-30-2025 Immature granulocytes/100 WBC (Bld) 0.500 % 0.0-0.9 [facility] Comment on above: IG% - Immature Granu locytes (promyelocytes, myelocytes and metamyelocytes) > 1% indicates that a LEFT SHIFT is Present. International normalized rat io (INR) calculationOrdered By: Herson Victoria on 01-30-2025 INR Coag (Bld) [Relative time] 1.0 {INR} [facility] MCV (mean corpuscular volume ) determinationOrdered By: Herson Victoria on 01-30-2025 MCV (RBC) [Entitic vol] 91.9 fL 80-94 [facility] Mean corpuscular hemoglobin (MCH) determinationOrdered By: Herson Victoria on 01-30-2025 MCH (RBC) [Entitic mass] 31.4 pg 27.0-32.0 [facility] Mean corpuscular hemoglobin concentration (MCHC) determinationOrdered By: Herson Victoria on 01-30-2025 MCHC (RBC) [Mass/Vol] 34.1 g/dL 32-36 [facility] Mean platelet volume determi nationOrdered By: Herson Victoria on 01-30-2025 Platelet mean volume (Bld) [Entitic vol] 9.1 fL 6.2-12.0 [facility] Monocyte percentageOrdered B y: Herson Victoria on 01-30-2025 Monocytes/100 WBC (Bld) 8.5 % 0-10 [facility] Neutrophil percentageOrdered By: Herson Victoria on 01-30-2025 Neutrophils/100 WBC (Bld) 76.0 % High 47-70 [facility] Nucleated red blood cell per centageOrdered By: Herson Victoria on 01-30-2025 Nucleated RBC/100 WBC (Bld) [Ratio] 0 % 0-5 [facility] Platelet countOrdered By: Ren Victoria on 01-30-2025 Platelets (Bld) [#/Vol] 181 10*3/uL 150-450 [facility] Potassium measurement (mass/ volume)Ordered By: Herson Victoria on 01-30-2025 Potassium (Unsp spec) [Mass/Vol] 4.4 mmol/L 3.3-5.1 [facility] Prothrombin timeOrdered By: Herson Victoria on 01-30-2025 PT Coag (PPP) [Time] 13.6 s 11.7-14.9 [facility] RBC Auto (Bld) [#/Vol]Ordere d By: Herson Victoria on 01-30-2025 RBC (Bld) [#/Vol] 4.59 10*6/uL Low 4.6-6.2 [facility] Serum creatinine measurement (mass/volume)Ordered By: Herson Victoria on 01-30-2025 Creatinine [Mass/Vol] 8.10 mg/dL High 0.70-1.20 [facility] Comment on above: Critical Result(s) C alled at:0247 by: DINORAH JOHNSTON TO SARKIS WHATLEY Results read back by same. Serum glucose measurement (m ass/volume)Ordered By: Herson Victoria on 01-30-2025 Glucose [Mass/Vol] 131 mg/dL High 70-99 [facility] Serum or plasma calcium cuong urement (mass/volume)Ordered By: Herson Victoria on 01-30-2025 Calcium [Mass/Vol] 9.7 mg/dL 7.6-11.0 [facility] Serum or plasma urea nitroge n measurement (mass/volume)Ordered By: Herson Victoria on 01-30-2025 Urea nitrogen [Mass/Vol] 41 mg/dL High 4-19 [facility] Sodium levelOrdered By: Kaur Victoria on 01-30-2025 Sodium [Moles/Vol] 132 mmol/L Low 133-145 [facility] White blood cell (WBC) count Ordered By: Herson Victoria on 01-30-2025 WBC (Bld) [#/Vol] 10.8 10*3/uL 4.4-11.0 [facility] MR/[id number] 01-24-2025 MR/POSTOPAN2 [facility] Medical Records Department [address] [place] [address] Anesthesia Postop Eval II 01/24/25 1004 MR#: [id number] Acct: [id number] Name: MARLO ADAMSON Rep #: [id number] : 1960 64 From: Isacc Cavanaugh MD PCP: Dr. Marlo Pollard, DO Status:[facility] Y Race: C Location: [facility] Anesthesia Postop Eval I Sum Postop Eval Completion status Anesthesia document: Postop Eval 1 completed: Yes Anesthesia Postop Eval I Summary Anesthesia Postop Eval I Summary: Anesthesia Postop Eval I: Assessment Summary Airway patent Yes 01/21/25 14:30 NUMERICAL CONTROL LATHE OPERATOR.JSWI Spontaneous unlabored Yes 01/21/25 14:30 NUMERICAL CONTROL LATHE OPERATOR.JSWI respirations Mental status Awake 01/21/25 14:30 NUMERICAL CONTROL LATHE OPERATOR.JSWI nausea No 01/21/25 14:30 NUMERICAL CONTROL LATHE OPERATOR.JSWI Vomiting No 01/21/25 14:30 NUMERICAL CONTROL LATHE OPERATOR.JSWI Anesthesia Postop Eval I: Fluid Summary Crystalloid volume administer 200 01/21/25 14:30 NUMERICAL CONTROL LATHE OPERATOR.JSWI (ml) Colloids volume administered ( ml) Blood Product volume administered (ml) Total IV fluid infused 200 01/21/25 14:30 NUMERICAL CONTROL LATHE OPERATOR.JSWI Anesthesia Postop Eval I: Summary Notes Anesthesia Complication No 01/21/25 14:30 NUMERICAL CONTROL LATHE OPERATOR.JSWI Anesthesia Complication Comment: Post-operative progress note Anesthesia: Postop Eval II Evaluation Mental status: Awake and Calm Pain Level: 0 nausea: No Vomiting: No Complications Anesthesia Complication: No 01/24/25 1004 Date Isacc Cavanaugh MD Cosigner Signature: Date CC: Signed Normal [facility] Discharge Instructionon 12-27 Discharge Instruction [facility] Medical Records Department [address] [place] [address] Instructions for Home/Discharge Instructions 01/21/25 1417 MR#: [id number] Acct: [id number] Name: MARLO ADAMSON Rodrigo Rep #: [id number] : 1960 64 From: Maria Ines Mckoy MD PCP: Dr. Marlo Pollard, DO Status:REG [facility] Discharge Instructions Diet Discharge Diet: Light diet [...] weeks call the office for follow-up appointment [phone] Test Results: Test results from this visit will be discussed in further detail at your follow-up appointment, if applicable. Discharge Plan Admission Attending Provider: Maria Ines Mckoy Primary Care Provider: Marlo Pollard Instructions Print Language: Cook Islander Discharge Orders/Prescriptions Prescriptions: Continued metoprolol tartrate 25 [...] % cream with perineal applicator 1 applic ME QD-BID PRN (Reason: hemorrhoids) Qty: 30 0RF [...] CC: Dr. Marlo Pollard DO Signed Normal [facility] MR/POSTOP.Renetta 01-21-2025 MR/POSTOP.[facility] Medical Records Department [address] [place] [address] Anesthesia Postop Eval I 01/21/25 1429 MR#: [id number] Acct: [id number] Name: MARLO ADAMSON Rodrigo Rep #: [id number] : 1960 64 From: Rosy Daley CRNA PCP: Dr. Marlo Pollard DO Status:REG SDC Y Race: C Location: [place] [address] Anesthesia: Postop Eval I Current Vital Signs [...] completed: Yes 01/21/25 1430 Date Rosy Daley NUMERICAL CONTROL LATHE OPERATOR Cosigner Signature: Date CC: Signed Normal [facility] Operative Reporton 5 Operative Report [facility] Medical Records Department [address] [place] [address] Operative Report 01/21/25 1412 MR#: [id number] Acct: [id number] Name: MARLO ADAMSON Rep #: [id number] : 1960 64 From: Maria Ines Mckoy MD PCP: Dr. Marlo Pollard, Status:[facility] Location: [facility] Operative Report (Standard) Operative Information Date of Procedure: 01/21/25 Pre-Operative Diagnosis: Anal fistula, hemorrhoids with bleeding Post-Operative Diagnosis: Internal/external hemorrhoids with bleeding, left gluteal subcutaneous sinus tract Surgery/Procedure Performed: Hemorrhoidectomy x 2, excision of left gluteal subcutaneous sinus tract communication arts lecturer: Yes Data Base Design Analyst: Sam Amin Tasks completed by information services assistant: Opening closing and Retracting Type of [...] DO; Dr. Maria Ines Mckoy MD Signed [facility] MR/PAT.[facility] 01-07-2025 MR/PAT.[facility] Medical Records Department [address] [place] [address] PAT - Anesthesia 01/07/25 1149 MR#: [id number] Acct: [id number] Name: MARLO ADAMSON Rep #: [id number] : 1960 64 From: Greg Cortes MD PCP: Dr. Marlo Pollard DO Status:PRE ALC Y Race: C Location: [facility] Pre-Assessment Diagnosis/Proposed Procedure Planned Operative Procedure(s): Exam Under Anesthesia hemorrhoidectomy and possible fistulotomy Anesthesia History Anesthesia History - driller operator: Anesthesia History - driller operator Hx Hospitalization Yes: 4- infection 01/07/25 09:36 [...] take am of surgery PONV PONV - driller operator: PONV - driller operator Female No 01/07/25 09:36 HX of Motion Sickness No 01/07/25 09:36 HX of N/V After Surgery No 01/07/25 09:36 Non-Smoker No 01/07/25 09:36 Duration of Surgery greater No 01/07/25 09:36 than 60 minutes Number of Risk Factors PONV Score Height Weight Height Weight: Anesthesia: Height Weight Height 5 ft 10 in 12/22/24 06:33 Respiratory Assessment Respiratory Assessment - driller operator: Respiratory Tract Infection Hx - driller operator Hx Respiratory Tract Infection No 01/07/25 09:36 STOP Sleep Apnea STOP Sleep Apnea - driller operator: STOP Sleep Apnea - driller operator Hx Hypertension Yes 01/07/25 09:36 Hx Sleep [...] Tobacco Use History Tobacco Use History - driller operator: Tobacco Use History - driller operator Tobacco Use Smoking Status Current every day smoker 01/07/25 09:36 Hx Tobacco Use Yes 01/07/25 09:36 Years Smoking 40 01/07/25 09:36 Packs Smoked per Day 1 01/07/25 09:36 Smoking Cessation Date was within the last 15 years Hx Smoking Cessation Date Hx Smoking Cessation No 01/07/25 09:36 Counseling Hematologic Medial History Hematologic Hx - driller operator: 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 Normal [facility] Colonoscopy Reporton 025 Colonoscopy Report [facility] Medical Records Department [address] [place] [address] Colonoscopy Report MR#: [id number] Acct: [id number] Name: MARLO ADAMSON Rep #: [id number] : 1960 64 From: Maria Ines Mckoy MD PCP: Dr. Marlo Pollard, DO Status:REG [facility] Patient Name: Marlo Adamson Procedure Date: 12/22/2024 [...] pathology results. Procedure Code(s): --- Professional --- 04558, PT, Colonoscopy, flexible; with removal of tumor(s), polyp(s), or other lesion(s) by snare technique Diagnosis Code(s): --- Professional --- Z12.11, Encounter for screening for malignant neoplasm of colon K64.2, Third degree hemorrhoids D12.2, Benign neoplasm of ascending colon K57.30, Diverticulosis of large intestine without perforation or abscess without bleeding CPT copyright 2021 [employer]. All rights reserved. The codes documented in this report are preliminary and upon surgical coder review may be revised to meet current compliance requirements. MD Maria Ines Patiño MD 12/22/2024 8:44:55 AM This report has been signed electronically. Number of Addenda: 0 Note Initiated On: 12/22/2024 8:03 AM 12/22/2444 Date Maria Ines Roy Signature: Date (if indicated) CC: Dr. Marlo Pollard DO; Dr. Maria Ines Mckoy MD Date Dictated: 12/22/24802 Date Transcribed: [employer] Rep: TR Signed [facility] MR/POSTOP.[facility] 12-22-2024 MR/POSTOP.[facility] Medical Records Department [address] [place] [address] Anesthesia Postop Eval I 12/22/24841 MR#: [id number] Acct: [id number] Name: MARLO ADAMSON Rep #: [id number] : 1960 64 From: Joseph Hu PCP: Dr. Marlo Pollard DO Status:REG SDC Y Race: C Location: [place] [address] Anesthesia: Postop Eval I Current Vital Signs [...] Joseph Roy Signature: Date CC: Signed Normal [facility] MR/[id number] 12-22-2024 MR/POSTOPAN2 [facility] Medical Records Department [address] [place] [address] Anesthesia Postop Eval II 12/22/24 1001 MR#: [id number] Acct: [id number] Name: MARLO ADAMSON Rep #: [id number] : 1960 64 From: Yuly Champagne PCP: Dr. Marlo Pollard, DO Status:DEP [facility] Y Race: C Location: [place] Anesthesia Postop [...] Yuly Larkinignrenzo Signature: Date CC: Signed Normal [facility] Surgery Specimen Level Vincenzo 12-22-2024 Surgery Specimen Level IV Patient Age/Sex Location Account Attending Physician MARLO ADAMSON 64/M EN [id number] Dr. Maria Ines Mckoy MD Specimen: [id number] Received: 12/22/24 Status: MARIKA Tommie Num: [id number] Spec Type: COLON BX Subm Dr: Dr. [...] it is bisected. Submitted entirely in A1. [facility] 12-22-2024 [facility]:[address]23 Patient Age/Sex Location Account Attending Physician MARLO ADAMSON 64/M EN [id number] Dr. Maria Ines Mckoy MD Signed (signature on file) Dr. Jazmine Weber MD 12/27/24 1205 Normal [facility] Comment on above: Performed By: #### M 300.7736, M300.4500 #### [facility] [address] [facility] [place], [address] MR/PAT.ANEon 12-21-2024 MR/PAT.ANE [facility] Medical Records Department [address] [place] [address] PAT - Anesthesia 12/21/24 1016 MR#: [id number] Acct: [id number] Name: MARLO ADAMSON Rep #: [id number] : 1960 64 From: Isacc Cavanaugh MD PCP: Dr. Marlo Pollard, DO Status:PRE [facility] Y Race: C Location: [place] Pre-Assessment Diagnosis/Proposed Procedure Planned Operative Procedure(s): COLONOSCOPY Anesthesia History Anesthesia History - driller operator: Anesthesia History - driller operator Hx Hospitalization Yes: 10/2024 FLU/DIALYSIS 12/21/24 09:34 [...] take am of surgery PONV PONV - driller operator: PONV - driller operator Female No 12/21/24 09:34 HX of Motion Sickness No 12/21/24 09:34 HX of N/V After Surgery No 12/21/24 09:34 Non-Smoker No 12/21/24 09:34 Duration of Surgery greater No 12/21/24 09:34 than 60 minutes Number of Risk Factors PONV Score Height Weight Height Weight: Anesthesia: Height Weight Height 5 ft 10 in 10/31/24 16:55 Respiratory Assessment Respiratory Assessment - driller operator: Respiratory Tract Infection Hx - driller operator Hx Respiratory Tract Infection No 12/21/24 09:34 STOP Sleep Apnea STOP Sleep Apnea - driller operator: STOP Sleep Apnea - driller operator Hx Hypertension Yes: FAIRLY CONTROLLED WITH 12/21/24 [...] Tobacco Use History Tobacco Use History - driller operator: Tobacco Use History - driller operator Tobacco Use Smoking Status Current every day smoker 12/21/24 09:34 Hx Tobacco Use Yes 12/21/24 09:34 Years Smoking Packs Smoked per Day Smoking Cessation Date was within the last 15 years Hx Smoking Cessation Date 12/21/24 09:34 Hx Smoking Cessation Counseling Hematologic Medial History Hematologic Hx - driller operator: 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 Normal [facility] Absolute lymphocyte countOrd ered By: Himanshu Almaguer on 11-02-2024 Lymphocytes Auto (Unsp spec) [#/Vol] 0.96 10*3/uL 0.83-4.51 [facility] Absolute neutrophil countOrd ered By: Himanshu Almaguer on 11-02-2024 Neutrophils (Bld) [#/Vol] 5.6 10*3/uL 2.0-7.7 [facility] Anion gap in Serum or Plasma Ordered By: Himanshu Almaguer on 11-02-2024 Anion gap [Moles/Vol] 14 mmol/L 5-15 [facility] Automated lymphocyte count a s percentage of total leukocytesOrdered By: Himanshu Almaguer on 11-02-2024 Lymphocytes/100 WBC Auto (Unsp spec) 12.6 % Low 19-41 [facility] BUN/creatinine ratioOrdered By: Himanshu Almaguer on 11-02-2024 Urea nitrogen/Creatinine [Mass ratio] 7.0 mg/mg Low 10-20 [facility] Basic Metabolic Profile (BMP )on 11-02-2024 BUN/CRE 7.0 RATIO Low 10- [facility] Comment on above: Performed By: #### M 300.4600, M300.4500 #### [facility] [address] [place], [address] Calcium [Mass/Vol] 8.9 mg/dL Normal 7.6-11.0 [facility] Comment on above: Performed By: #### M 300.4600, M300.4500 #### [facility] [address] [place], [address] Chloride [Moles/Vol] 98 mmol/L Normal 98-108 [facility] Comment on above: Performed By: #### M 300.4600, M300.4500 #### [facility] [address] [place], [address] CO2 [Moles/Vol] 20.8 mmol/L Low 21.0-32.0 [facility] Comment on above: Performed By: #### M 300.4600, M300.4500 #### [facility] [address] [place], [address] Creatinine [Mass/Vol] 5.94 mg/dL High 0.70-1.20 [facility] Comment on above: Performed By: #### M 300.4600, M300.4500 #### [facility] [address] [place], [address] ECRCL 12.55 ml/min Low 50-250 [facility] Comment on above: Performed By: #### M 300.4600, M300.4500 #### [facility] [address] [place], [address] GAP 14 Normal 5-15 [facility] Comment on above: Performed By: #### M 300.4600, M300.4500 #### [facility] [address] [place], [address] GFR/1.73 sq M.predicted among non-blacks MDRD (S/P/Bld) [Vol rate/Area] 10 mL/min/{1.73_m2} Low >60 [facility] Comment on above: Result Comment: mL/m in/1.73m2 CKD-EPI Creatinine Equation (2020) Performed By: #### M 300.4600, M300.4500 #### [facility] [address] [place], [address] Glucose [Mass/Vol] 88 mg/dL Normal 70-99 [facility] Comment on above: Performed By: #### M 300.4600, M300.4500 #### [facility] [address] [place], [address] Potassium [Moles/Vol] 3.8 mmol/L Normal 3.3-5.1 [facility] Comment on above: Performed By: #### M 300.4600, M300.4500 #### [facility] [address] [place], [address] Sodium [Moles/Vol] 134 mmol/L Normal 133-145 [facility] Comment on above: Performed By: #### M 300.4600, M300.4500 #### [facility] [address] [place], [address] Urea nitrogen [Mass/Vol] 41 mg/dL High 4-19 [facility] Comment on above: Performed By: #### M 300.4600, M300.4500 #### [facility] [address] [place], [address] Basophil percentageOrdered B y: Himanshu Almaguer on 11-02-2024 Basophils/100 WBC (Bld) 0.4 % 0-1 [facility] CBC W/Diff, Automatedon 04- Absolute Lymph 0.96 X10 3/uL Normal 0.83-4.51 [facility] Comment on above: Performed By: #### M 300.4600, M300.4500 #### [facility] [address] [place], [address] Absolute Neut 5.6 X10 3/uL Normal 2.0-7.7 [facility] Comment on above: Performed By: #### M 300.4600, M300.4500 #### [facility] [address] [place], [address] Basophils/100 WBC (Bld) 0.4 % Normal 0-1 [facility] Comment on above: Performed By: #### M 300.4600, M300.4500 #### [facility] [address] [place], [address] Eosinophils/100 WBC (Bld) 1.7 % Normal 0-5 [facility] Comment on above: Performed By: #### M 300.4600, M300.4500 #### [facility] [address] [place], [address] Erythrocyte distribution width (RBC) [Ratio] 13.6 % Normal 11.6-14.6 [facility] Comment on above: Performed By: #### M 300.4600, M300.4500 #### [facility] [address] [place], [address] Hematocrit (Bld) [Volume fraction] 36.8 % Low 40-54 [facility] Comment on above: Performed By: #### M 300.4600, M300.4500 #### [facility] [address] [place], [address] Hemoglobin (Bld) [Mass/Vol] 12.4 g/dL Low 13.0-16.5 [facility] Comment on above: Performed By: #### M 300.4600, M300.4500 #### [facility] [address] [place], [address] IG% 2.100 High 0.0-0.9 [facility] Comment on above: Result Comment: IG% - Immature Granulocytes (promyelocytes, myelocytes and metamyelocytes) > 1% indicates that a LEFT SHIFT is Present. Performed By: #### M 300.4600, M300.4500 #### [facility] [facility] [address] [place], [address] Lymphocytes/100 WBC (Bld) 12.6 % Low 19-41 [facility] Comment on above: Performed By: #### M 300.4600, M300.4500 #### [facility] [address] [place], [address] MCH (RBC) [Entitic mass] 31.1 pg Normal 27.0-32.0 [facility] Comment on above: Performed By: #### M 300.4600, M300.4500 #### [facility] [address] [place], [address] MCHC (RBC) [Mass/Vol] 33.7 g/dL Normal 32-36 [facility] Comment on above: Performed By: #### M 300.4600, M300.4500 #### [facility] [address] [place], [address] MCV (RBC) [Entitic vol] 92.2 fL Normal 80-94 [facility] Comment on above: Performed By: #### M 300.4600, M300.4500 #### [facility] [address] [place], [address] Monocytes/100 WBC (Bld) 9.8 % Normal 0-10 [facility] Comment on above: Performed By: #### M 300.4600, M300.4500 #### [facility] [address] [place], [address] Neutrophils/100 WBC (Bld) 73.4 % High 47-70 [facility] Comment on above: Performed By: #### M 300.4600, M300.4500 #### [facility] [address] [place], [address] Nucleated RBC (Bld) [#/Vol] 0 10*3/uL Normal 0-5 [facility] Comment on above: Performed By: #### M 300.4600, M300.4500 #### [facility] [address] [place], [address] Platelet mean volume (Bld) [Entitic vol] 9.4 fL Normal 6.2-12.0 [facility] Comment on above: Performed By: #### M 300.4600, M300.4500 #### [facility] [address] [place], [address] Platelets (Bld) [#/Vol] 218 10*3/uL Normal 150-450 [facility] Comment on above: Performed By: #### M 300.4600, M300.4500 #### [facility] [address] [place], [address] RBC (Bld) [#/Vol] 3.99 10*6/uL Low 4.6-6.2 [facility] Comment on above: Performed By: #### M 300.4600, M300.4500 #### [facility] [address] [place], [address] RDW SD 46.2 fl High 35.1-43.9 [facility] Comment on above: Performed By: #### M 300.4600, M300.4500 #### [facility] [address] [place], [address] WBC (Bld) [#/Vol] 7.6 10*3/uL Normal 4.4-11.0 [facility] Comment on above: Performed By: #### M 300.4600, M300.4500 #### [facility] [address] [place], [address] Carbon dioxide, total [Moles /volume] in Central venous bloodOrdered By: Himanshu Almaguer on 11-02-2024 CO2 [Moles/Vol] 20.8 mmol/L Low 21.0-32.0 [facility] Chloride assayOrdered By: Renzo Almaguer on 11-02-2024 Chloride [Moles/Vol] 98 mmol/L 98-108 [facility] Eosinophil percentageOrdered By: Himanshu Almaguer on 11-02-2024 Eosinophils/100 WBC (Bld) 1.7 % 0-5 [facility] Erythrocyte distribution wid th (RBC) [Ratio]Ordered By: Himanshu Almaguer on 11-02-2024 Erythrocyte distribution width (RBC) [Entitic vol] 46.2 fL High 35.1-43.9 [facility] Erythrocyte distribution wid th ratioOrdered By: Himanshu Almaguer on 11-02-2024 Erythrocyte distribution width (RBC) [Ratio] 13.6 % 11.6-14.6 [facility] Erythrocyte distribution wid th standard deviationOrdered By: Himanshu Almaguer on 11-02-2024 Erythrocyte distribution width (RBC) [Ratio] 46.2 fl High 35.1-43.9 [facility] Estimation of creatinine nicolas aranceOrdered By: Himanshu Almaguer on 11-02-2024 Estimated Creatinine Clearance Calc 12.55 ml/min Low 50-250 [facility] GFR/1.73 sq M.predicted joann g non-blacks MDRD (S/P/Bld) [Vol rate/Area]Ordered By: Himanshu Almaguer on 11-02-2024 Estimated GFR (MDRD) Non-Af Amer 10 Low >60 [facility] Comment on above: mL/min/1.73m2 CKD-EP I Creatinine Equation (2020) Glomerular filtration rate ( GFR) estimation/1.73 sq m using serum, plasma, or whole bOrdered By: Himanshu Almaguer on 11-02-2024 GFR/1.73 sq M.predicted among non-blacks MDRD (S/P/Bld) [Vol rate/Area] 10 mL/min/{1.73_m2} Low >60 [facility] Comment on above: mL/min/1.73m2 CKD-EP I Creatinine Equation (2020) Hematocrit Auto (Bld) [Volum e fraction]Ordered By: Himanshu Almaguer on 11-02-2024 Hematocrit (Bld) [Volume fraction] 36.8 % Low 40-54 [facility] Hemoglobin measurementOrdere d By: Himanshu Almaguer on 11-02-2024 Hemoglobin (Bld) [Mass/Vol] 12.4 g/dL Low 13.0-16.5 [facility] Immature granulocytes/100 WB C Auto (Bld)Ordered By: Himanshu Almaguer on 11-02-2024 Immature granulocytes/100 WBC (Bld) 2.100 % High 0.0-0.9 [facility] Comment on above: IG% - Immature Granu locytes (promyelocytes, myelocytes and metamyelocytes) > 1% indicates that a LEFT SHIFT is Present. Lymphocytes Auto (Unsp spec) [#/Vol]Ordered By: Himanshu Almaguer on 11-02-2024 Lymphocytes (Bld) [#/Vol] 0.96 10*3/uL 0.83-4.51 [facility] Lymphocytes/100 WBC Auto (Un sp spec)Ordered By: Himanshu Almaguer on 11-02-2024 Lymphocytes/100 WBC (Bld) 12.6 % Low 19-41 [facility] MCV (mean corpuscular volume ) determinationOrdered By: Himanshu Almaguer on 11-02-2024 MCV (RBC) [Entitic vol] 92.2 fL 80-94 [facility] Mean corpuscular hemoglobin (MCH) determinationOrdered By: Himanshu Almaguer on 11-02-2024 MCH (RBC) [Entitic mass] 31.1 pg 27.0-32.0 [facility] Mean corpuscular hemoglobin concentration (MCHC) determinationOrdered By: Himanshu Almaguer on 11-02-2024 MCHC (RBC) [Mass/Vol] 33.7 g/dL 32-36 [facility] Mean platelet volume determi nationOrdered By: Himanshu Almaguer on 11-02-2024 Platelet mean volume (Bld) [Entitic vol] 9.4 fL 6.2-12.0 [facility] Monocyte percentageOrdered B y: Himanshu Almaguer on 11-02-2024 Monocytes/100 WBC (Bld) 9.8 % 0-10 [facility] Neutrophil percentageOrdered By: Himanshu Almaguer on 11-02-2024 Neutrophils/100 WBC (Bld) 73.4 % High 47-70 [facility] Nucleated red blood cell per centageOrdered By: Himanshu Almaguer on 11-02-2024 Nucleated RBC/100 WBC (Bld) [Ratio] 0 % 0-5 [facility] Platelet countOrdered By: Renzo Almaguer on 11-02-2024 Platelets (Bld) [#/Vol] 218 10*3/uL 150-450 [facility] Potassium (Unsp spec) [Mass/ Vol]Ordered By: Himanshu Almaguer on 11-02-2024 Potassium [Moles/Vol] 3.8 mmol/L 3.3-5.1 [facility] Potassium measurement (mass/ volume)Ordered By: Himanshu Almaguer on 11-02-2024 Potassium (Unsp spec) [Mass/Vol] 3.8 mmol/L 3.3-5.1 [facility] RBC Auto (Bld) [#/Vol]Ordere d By: Himanshu Almaguer on 11-02-2024 RBC (Bld) [#/Vol] 3.99 10*6/uL Low 4.6-6.2 [facility] Respiratory Cultureon 2024 RESPC List Antibiotics [place] 48 Hours? zosyn, doxycycline Mixed normal respiratory jose enrique. No Streptococcus pneumoniae, beta-hemolytic Streptococcus or Staphylococcus aureus isolated. Normal [facility] Comment on above: Performed By: #### M 8200.1000 #### [facility] [address] [place], [address] Serum creatinine measurement (mass/volume)Ordered By: Himanshu Almaguer on 11-02-2024 Creatinine [Mass/Vol] 5.94 mg/dL High 0.70-1.20 [facility] Serum glucose measurement (m ass/volume)Ordered By: Himanshu Almaguer on 11-02-2024 Glucose [Mass/Vol] 88 mg/dL 70-99 [facility] Serum or plasma calcium cuong urement (mass/volume)Ordered By: Himanshu Almaguer on 11-02-2024 Calcium [Mass/Vol] 8.9 mg/dL 7.6-11.0 [facility] Serum or plasma urea nitroge n measurement (mass/volume)Ordered By: Himanshu Almaguer on 11-02-2024 Urea nitrogen [Mass/Vol] 41 mg/dL High 4-19 [facility] Sodium levelOrdered By: Himanshu Almaguer on 11-02-2024 Sodium [Moles/Vol] 134 mmol/L 133-145 [facility] White blood cell (WBC) count Ordered By: Himanshu Almaguer on 11-02-2024 WBC (Bld) [#/Vol] 7.6 10*3/uL 4.4-11.0 [facility] Basic Metabolic Profile (BMP )on 11-01-2024 BUN/CRE 8.2 RATIO Low 10-20 [facility] Comment on above: Performed By: #### L 100.0100, L500.2500 #### [facility] [address] [place], [address] Calcium [Mass/Vol] 8.9 mg/dL Normal 7.6-11.0 [facility] Comment on above: Performed By: #### L 100.0100, L500.2500 #### [facility] [address] [place], [address] Chloride [Moles/Vol] 92 mmol/L Low 98-108 [facility] Comment on above: Performed By: #### L 100.0100, L500.2500 #### [facility] [address] [place], [address] CO2 [Moles/Vol] 21.9 mmol/L Normal 21.0-32.0 [facility] Comment on above: Performed By: #### L 100.0100, L500.2500 #### [facility] [address] [place], [address] Creatinine [Mass/Vol] 7.59 mg/dL Invalid Interpretation Code 0.70-1.20 [facility] Comment on above: Result Comment: Crit ical Result(s) Called at:0559 by: DINORAH JOHNSTON TO ALEN BRIANA??Results read back by same. Performed By: #### L 100.0100, L500.2500 #### [facility] [address] [place], [address] ECRCL 9.82 ml/min Invalid Interpretation Code 50-250 [facility] Comment on above: Performed By: #### L 100.0100, L500.2500 #### [facility] [address] [place], [address] GAP 18 High 5-15 [facility] Comment on above: Performed By: #### L 100.0100, L500.2500 #### [facility] [address] [place], [address] GFR/1.73 sq M.predicted among non-blacks MDRD (S/P/Bld) [Vol rate/Area] 7 mL/min/{1.73_m2} Low >60 [facility] Comment on above: Result Comment: mL/m in/1.73m2 CKD-EPI Creatinine Equation (2020) Performed By: #### L 100.0100, L500.2500 #### [facility] [address] [place], [address] Glucose [Mass/Vol] 101 mg/dL High 70-99 [facility] Comment on above: Performed By: #### L 100.0100, L500.2500 #### [facility] [address] [place], [address] Potassium [Moles/Vol] 3.4 mmol/L Normal 3.3-5.1 [facility] Comment on above: Performed By: #### L 100.0100, L500.2500 #### [facility] [address] [place], [address] Sodium [Moles/Vol] 132 mmol/L Low 133-145 [facility] Comment on above: Performed By: #### L 100.0100, L500.2500 #### [facility] [address] [place], [address] Urea nitrogen [Mass/Vol] 63 mg/dL High 4-19 [facility] Comment on above: Performed By: #### L 100.0100, L500.2500 #### [facility] [address] [place], [address] C. difficile DNA ALICE+probe Q l (Unsp spec)Ordered By: Chirag Lucero on 11-01-2024 Clostridioides difficile (PCR) [facility] CBC W/Diff, Automatedon Absolute Lymph 1.12 X10 3/uL Normal 0.83-4.51 [facility] Comment on above: Performed By: #### L 100.0100, L500.2500 #### [facility] [address] [place], [address] Absolute Neut 7.8 X10 3/uL High 2.0-7.7 [facility] Comment on above: Performed By: #### L 100.0100, L500.2500 #### [facility] [address] [place], [address] Basophils/100 WBC (Bld) 0.3 % Normal 0-1 [facility] Comment on above: Performed By: #### L 100.0100, L500.2500 #### [facility] [address] [place], [address] Eosinophils/100 WBC (Bld) 1.1 % Normal 0-5 [facility] Comment on above: Performed By: #### L 100.0100, L500.2500 #### [facility] [address] [place], [address] Erythrocyte distribution width (RBC) [Ratio] 13.5 % Normal 11.6-14.6 [facility] Comment on above: Performed By: #### L 100.0100, L500.2500 #### [facility] [address] [place], [address] Hematocrit (Bld) [Volume fraction] 37.4 % Low 40-54 [facility] Comment on above: Performed By: #### L 100.0100, L500.2500 #### [facility] [address] [place], [address] Hemoglobin (Bld) [Mass/Vol] 13.1 g/dL Normal 13.0-16.5 [facility] Comment on above: Performed By: #### L 100.0100, L500.2500 #### [facility] [address] [place], [address] IG% 1.000 High 0.0-0.9 [facility] Comment on above: Result Comment: IG% - Immature Granulocytes (promyelocytes, myelocytes and metamyelocytes) > 1% indicates that a LEFT SHIFT is Present. Performed By: #### L 100.0100, L500.2500 #### [facility] [address] [place], [address] Lymphocytes/100 WBC (Bld) 11.3 % Low 19-41 [facility] Comment on above: Performed By: #### L 100.0100, L500.2500 #### [facility] [address] [place], [address] MCH (RBC) [Entitic mass] 31.6 pg Normal 27.0-32.0 [facility] Comment on above: Performed By: #### L 100.0100, L500.2500 #### [facility] [address] [place], [address] MCHC (RBC) [Mass/Vol] 35.0 g/dL Normal 32-36 [facility] Comment on above: Performed By: #### L 100.0100, L500.2500 #### [facility] [address] [place], [address] MCV (RBC) [Entitic vol] 90.3 fL Normal 80-94 [facility] Comment on above: Performed By: #### L 100.0100, L500.2500 #### [facility] [address] [place], [address] Monocytes/100 WBC (Bld) 7.5 % Normal 0-10 [facility] Comment on above: Performed By: #### L 100.0100, L500.2500 #### [facility] [address] [place], [address] Neutrophils/100 WBC (Bld) 78.8 % High 47-70 [facility] Comment on above: Performed By: #### L 100.0100, L500.2500 #### [facility] [address] [place], [address] Nucleated RBC (Bld) [#/Vol] 0 10*3/uL Normal 0-5 [facility] Comment on above: Performed By: #### L 100.0100, L500.2500 #### [facility] [address] [place], [address] Platelet mean volume (Bld) [Entitic vol] 9.6 fL Normal 6.2-12.0 [facility] Comment on above: Performed By: #### L 100.0100, L500.2500 #### [facility] [address] [place], [address] Platelets (Bld) [#/Vol] 188 10*3/uL Normal 150-450 [facility] Comment on above: Performed By: #### L 100.0100, L500.2500 #### [facility] [address] [place], [address] RBC (Bld) [#/Vol] 4.14 10*6/uL Low 4.6-6.2 [facility] Comment on above: Performed By: #### L 100.0100, L500.2500 #### [facility] [address] [place], [address] RDW SD 45.1 fl High 35.1-43.9 [facility] Comment on above: Performed By: #### L 100.0100, L500.2500 #### [facility] [address] [place], [address] WBC (Bld) [#/Vol] 9.9 10*3/uL Normal 4.4-11.0 [facility] Comment on above: Performed By: #### L 100.0100, L500.2500 #### [facility] [address] [place], [address] CDIFF (PCR)on 11-01-2024 CDIFF Is the patient recei ving laxatives? N New/unexplained onset of 3 or more stools in past 24 hrs? Y Pending [phone] [id number] Presumptive Negative *for epidemiolologic???use C. Diff PCR Negative- No toxigenic C. Diff Detected Normal [facility] Comment on above: Performed By: #### M 100.6796 #### [facility] [address] [facility] [place], [address] Clostridium difficile detect ion by polymerase chain reactionOrdered By: Chirag Lucero on 11-01-2024 C. difficile DNA ALICE+probe Ql (Unsp spec) [facility] Consultation - Nephrologyon 11-01-2024 Consultation - Nephrology [facility] Medical Records Department [address] [place] [address] Consultation - Nephrology 11/01/24 1205 MR#: [id number] Acct: [id number] Name: MARLO ADAMSON R[place] Rep #: [id number] : 1960 64 From: Maranda Bustamante [employer] PCP: Dr. Marlo Pollard, DO Status:ADM IN Location: MS3 [id number] Assessment Plan Assessment/Plan (1) ESRD (end stage [...] was poor and he has lost weight. [facility] Medical History (Updated 11/01/24 @ 12:07 by [...] hydrocortisone 2.5 % topical cream 1 applic ME QD-BID PRN hemorrhoi ds 10/13/24 Unknown Rx [...] HPI Physica (more content not included)... Normal [facility] ENTERIC PATHOGEN PANEL STOOL on [...] VIBRIO Not Detected Yersinia Not Detected Normal [facility] Comment on above: Performed By: #### M 100.637, M100.7900, M100.0605 #### [facility] [address] [place], [address] Lactoferrin IA Ql (Stl)Order ed By: Chirag Lucero on 11-01-2024 Stool Lactoferrin [facility] Lower GI hemoglobin IA Ql (S tl)Ordered By: Chirag Lucero on 11-01-2024 Stool Occult Blood (PAULIE) [facility] Stool Lactoferrin/WBCon 04-0 WBCST Normal Reference Ran ge = Negative Fecal WBC Lactoferrin A Positive: Fecal WBC Lactoferrin present A Normal [facility] Comment on above: Performed By: #### M 100.637, M100.7900, M100.0605 #### [facility] [address] [place], [address] Stool Occult Blood iFOBon STOB Negative Normal [facility] Comment on above: Performed By: #### M 100.637, M100.7900, M100.0605 #### [facility] [address] [place], [address] Stool enteric pathogen panel by probe and target amplification methodOrdered By: Chirag Lucero on 11-01-2024 Enteric Bacteriology [facility] Stool gastrointestinal hemog lobin detection by immunologic methodOrdered By: Chirag Lucero on 11-01-2024 Lower GI hemoglobin IA Ql (Stl) [facility] Stool lactoferrin detection by immunoassayOrdered By: Chirag Lucero on 11-01-2024 Lactoferrin IA Ql (Stl) [facility] Absolute neutrophil countOrd ered By: Jimy Jarquin on 10-31-2024 Neutrophils (Bld) [#/Vol] 14.1 10*3/uL High 2.0-7.7 [facility] Anion gap in Serum or Plasma Ordered By: Jimy Jraquin on 10-31-2024 Anion gap [Moles/Vol] 18 mmol/L High 5-15 [facility] BUN/creatinine ratioOrdered By: Jimy Jarquin on 10-31-2024 Urea nitrogen/Creatinine [Mass ratio] 7.6 mg/mg Low 10-20 [facility] Basic Metabolic Profile (BMP )on 10-31-2024 BUN/CRE 7.6 RATIO Low 10-20 [facility] Comment on above: Performed By: #### M 300.4600, M300.4500 #### [facility] [address] [place], [address] Calcium [Mass/Vol] 9.1 mg/dL Normal 7.6-11.0 [facility] Comment on above: Performed By: #### M 300.4600, M300.4500 #### [facility] [address] [place], [address] Chloride [Moles/Vol] 89 mmol/L Low 98-108 [facility] Comment on above: Performed By: #### M 300.4600, M300.4500 #### [facility] [address] [place], [address] CO2 [Moles/Vol] 25.2 mmol/L Normal 21.0-32.0 [facility] Comment on above: Performed By: #### M 300.4600, M300.4500 #### [facility] [address] [place], [address] Creatinine [Mass/Vol] 6.33 mg/dL High 0.70-1.20 [facility] Comment on above: Performed By: #### M 300.4600, M300.4500 #### [facility] [address] [place], [address] ECRCL 11.97 ml/min Low 50-250 [facility] Comment on above: Performed By: #### M 300.4600, M300.4500 #### [facility] [address] [place], [address] GAP 18 High 5-15 [facility] Comment on above: Performed By: #### M 300.4600, M300.4500 #### [facility] [address] [place], [address] GFR/1.73 sq M.predicted among non-blacks MDRD (S/P/Bld) [Vol rate/Area] 9 mL/min/{1.73_m2} Low >60 [facility] Comment on above: Result Comment: mL/m in/1.73m2 CKD-EPI Creatinine Equation (2020) Performed By: #### M 300.4600, M300.4500 #### [facility] [address] [place], [address] Glucose [Mass/Vol] 132 mg/dL High 70-99 [facility] Comment on above: Performed By: #### M 300.4600, M300.4500 #### [facility] [address] [place], [address] Potassium [Moles/Vol] 3.3 mmol/L Normal 3.3-5.1 [facility] Comment on above: Performed By: #### M 300.4600, M300.4500 #### [facility] [address] [place], [address] Sodium [Moles/Vol] 132 mmol/L Low 133-145 [facility] Comment on above: Performed By: #### M 300.4600, M300.4500 #### [facility] [address] [place], [address] Urea nitrogen [Mass/Vol] 48 mg/dL High 4-19 [facility] Comment on above: Performed By: #### M 300.4600, M300.4500 #### [facility] [address] [place], [address] Basophil percentageOrdered B y: Jimy Jarquin on 10-31-2024 Basophils/100 WBC (Bld) 0.2 % 0-1 [facility] Bilirubin, totalOrdered By: Elidia Cunningham on 10-31-2024 Bilirubin [Mass/Vol] 0.83 mg/dL 0.00-1.30 [facility] CBC W/Diff, Automatedon 04- Absolute Lymph 0.93 X10 3/uL Normal 0.83-4.51 [facility] Comment on above: Performed By: #### M 8200.1000 #### [facility] [address] [place], [address] Absolute Neut 11.7 X10 3/uL High 2.0-7.7 [facility] Comment on above: Performed By: #### M 8200.1000 #### [facility] [address] [place], [address] Basophils/100 WBC (Bld) 0.1 % Normal 0-1 [facility] Comment on above: Performed By: #### M 8200.1000 #### [facility] [address] [place], [address] Eosinophils/100 WBC (Bld) 0.1 % Normal 0-5 [facility] Comment on above: Performed By: #### M 8200.1000 #### [facility] [address] [place], [address] Erythrocyte distribution width (RBC) [Ratio] 13.4 % Normal 11.6-14.6 [facility] Comment on above: Performed By: #### M 8200.1000 #### [facility] [address] [place], [address] Hematocrit (Bld) [Volume fraction] 39.0 % Low 40-54 [facility] Comment on above: Performed By: #### M 8200.1000 #### [facility] [address] [place], [address] Hemoglobin (Bld) [Mass/Vol] 13.5 g/dL Normal 13.0-16.5 [facility] Comment on above: Performed By: #### M 8200.1000 #### [facility] [address] [place], [address] IG% 1.200 High 0.0-0.9 [facility] Comment on above: Result Comment: IG% - Immature Granulocytes (promyelocytes, myelocytes and metamyelocytes) > 1% indicates that a LEFT SHIFT is Present. Performed By: #### M 8200.1000 #### [facility] [address] [place], [address] Lymphocytes/100 WBC (Bld) 6.7 % Low 19-41 [facility] Comment on above: Performed By: #### M 8200.1000 #### [facility] [address] [place], [address] MCH (RBC) [Entitic mass] 31.1 pg Normal 27.0-32.0 [facility] Comment on above: Performed By: #### M 8200.1000 #### [facility] [address] [place], [address] MCHC (RBC) [Mass/Vol] 34.6 g/dL Normal 32-36 [facility] Comment on above: Performed By: #### M 8200.1000 #### [facility] [address] [place], [address] MCV (RBC) [Entitic vol] 89.9 fL Normal 80-94 [facility] Comment on above: Performed By: #### M 8200.1000 #### [facility] [address] [place], [address] Monocytes/100 WBC (Bld) 7.3 % Normal 0-10 [facility] Comment on above: Performed By: #### M 8200.1000 #### [facility] [address] [place], [address] Neutrophils/100 WBC (Bld) 84.6 % High 47-70 [facility] Comment on above: Performed By: #### M 8200.1000 #### [facility] [address] [place], [address] Nucleated RBC (Bld) [#/Vol] 0 10*3/uL Normal 0-5 [facility] Comment on above: Performed By: #### M 8200.1000 #### [facility] [address] [place], [address] Platelet mean volume (Bld) [Entitic vol] 9.6 fL Normal 6.2-12.0 [facility] Comment on above: Performed By: #### M 8200.1000 #### [facility] [address] [place], [address] Platelets (Bld) [#/Vol] 186 10*3/uL Normal 150-450 [facility] Comment on above: Performed By: #### M 8200.1000 #### [facility] [address] [place], [address] RBC (Bld) [#/Vol] 4.34 10*6/uL Low 4.6-6.2 [facility] Comment on above: Performed By: #### M 8200.1000 #### [facility] [address] [place], [address] RDW SD 44.4 fl High 35.1-43.9 [facility] Comment on above: Performed By: #### M 8200.1000 #### [facility] [address] [place], [address] WBC (Bld) [#/Vol] 13.8 10*3/uL High 4.4-11.0 [facility] Comment on above: Performed By: #### M 8200.1000 #### [facility] [address] [place], [address] Absolute Lymph 0.86 X10 3/uL Normal 0.83-4.51 [facility] Comment on above: Performed By: #### M 300.4600, M300.4500 #### [facility] [address] [place], [address] Absolute Neut 14.1 X10 3/uL High 2.0-7.7 [facility] Comment on above: Performed By: #### M 300.4600, M300.4500 #### [facility] [address] [place], [address] Basophils/100 WBC (Bld) 0.2 % Normal 0-1 [facility] Comment on above: Performed By: #### M 300.4600, M300.4500 #### [facility] [address] [place], [address] Eosinophils/100 WBC (Bld) 0.1 % Normal 0-5 [facility] Comment on above: Performed By: #### M 300.4600, M300.4500 #### [facility] [address] [place], [address] Erythrocyte distribution width (RBC) [Ratio] 13.5 % Normal 11.6-14.6 [facility] Comment on above: Performed By: #### M 300.4600, M300.4500 #### [facility] [address] [place], [address] Hematocrit (Bld) [Volume fraction] 40.9 % Normal 40-54 [facility] Comment on above: Performed By: #### M 300.4600, M300.4500 #### [facility] [address] [place], [address] Hemoglobin (Bld) [Mass/Vol] 14.4 g/dL Normal 13.0-16.5 [facility] Comment on above: Performed By: #### M 300.4600, M300.4500 #### [facility] [address] [place], [address] IG% 1.500 High 0.0-0.9 [facility] Comment on above: Result Comment: IG% - Immature Granulocytes (promyelocytes, myelocytes and metamyelocytes) > 1% indicates that a LEFT SHIFT is Present. Performed By: #### M 300.4600, M300.4500 #### [facility] [address] [place], [address] Lymphocytes/100 WBC (Bld) 5.3 % Low 19-41 [facility] Comment on above: Performed By: #### M 300.4600, M300.4500 #### [facility] [address] [place], [address] MCH (RBC) [Entitic mass] 31.5 pg Normal 27.0-32.0 [facility] Comment on above: Performed By: #### M 300.4600, M300.4500 #### [facility] [address] [place], [address] MCHC (RBC) [Mass/Vol] 35.2 g/dL Normal 32-36 [facility] Comment on above: Performed By: #### M 300.4600, M300.4500 #### [facility] [address] [place], [address] MCV (RBC) [Entitic vol] 89.5 fL Normal 80-94 [facility] Comment on above: Performed By: #### M 300.4600, M300.4500 #### [facility] [address] [place], [address] Monocytes/100 WBC (Bld) 7.1 % Normal 0-10 [facility] Comment on above: Performed By: #### M 300.4600, M300.4500 #### [facility] [address] [place], [address] Neutrophils/100 WBC (Bld) 85.8 % High 47-70 [facility] Comment on above: Performed By: #### M 300.4600, M300.4500 #### [facility] [address] [place], [address] Nucleated RBC (Bld) [#/Vol] 0 10*3/uL Normal 0-5 [facility] Comment on above: Performed By: #### M 300.4600, M300.4500 #### [facility] [address] [place], [address] Platelet mean volume (Bld) [Entitic vol] 9.7 fL Normal 6.2-12.0 [facility] Comment on above: Performed By: #### M 300.4600, M300.4500 #### [facility] [address] [place], [address] Platelets (Bld) [#/Vol] 197 10*3/uL Normal 150-450 [facility] Comment on above: Performed By: #### M 300.4600, M300.4500 #### [facility] [address] [place], [address] RBC (Bld) [#/Vol] 4.57 10*6/uL Low 4.6-6.2 [facility] Comment on above: Performed By: #### M 300.4600, M300.4500 #### [facility] [address] [place], [address] RDW SD 44.1 fl High 35.1-43.9 [facility] Comment on above: Performed By: #### M 300.4600, M300.4500 #### [facility] [address] [place], [address] WBC (Bld) [#/Vol] 16.4 10*3/uL High 4.4-11.0 [facility] Comment on above: Performed By: #### M 300.4600, M300.4500 #### [facility] [address] [place], [address] Carbon dioxide, total [Moles /volume] in Central venous bloodOrdered By: Jimy Jarquin on 10-31-2024 CO2 [Moles/Vol] 25.2 mmol/L 21.0-32.0 [facility] Chest PA and Lateralon 10-31 Chest PA and Lateral [facility] [address] [address] Chest PA and Lateral MR#: [id number] Acct: [id number] Name: MARLO ADAMSON Rep #: [id number] : 1960 M 64 From: Beau Blacmkan i DO PCP: Dr. Marlo Pollard, Status: PRE ER Study: Chest PA and Lateral Date of Exam: 10/31/24 Exam# [id number] Ordering Dr: Jimy Jarquin MD PROCEDURE: PA [...] Jimy Jarquin MD; Dr. Marlo Pollard DO [employer] Rep: Signed Normal [facility] Chloride assayOrdered By: Odalis Jarquin on 10-31-2024 Chloride [Moles/Vol] 89 mmol/L Low 98-108 [facility] Comprehensive Metabolic Prof ilon 10-31-2024 Albumin [Mass/Vol] 3.2 g/dL Low 3.4-4.8 [facility] Comment on above: Performed By: #### M 8200.1000 #### [facility] [address] [place], [address] Albumin/Globulin [Mass ratio] 1.0 {ratio} Normal 0.9-2.4 [facility] Comment on above: Performed By: #### M 8200.1000 #### [facility] [address] [place], [address] ALK PHOS 67 U/L Normal 40-129 [facility] Comment on above: Performed By: #### M 8200.1000 #### [facility] [address] [place], [address] ALT [Catalytic activity/Vol] 22 U/L Normal <=46 [facility] Comment on above: Performed By: #### M 8200.1000 #### [facility] [address] [place], [address] AST [Catalytic activity/Vol] 24 U/L Normal <=37 [facility] Comment on above: Performed By: #### M 8200.1000 #### [facility] [address] [place], [address] Bilirubin [Mass/Vol] 0.83 mg/dL Normal 0.00-1.30 [facility] Comment on above: Performed By: #### M 8200.1000 #### [facility] [address] [place], [address] BUN/CRE 7.9 RATIO Low 10-20 [facility] Comment on above: Performed By: #### M 8200.1000 #### [facility] [address] [place], [address] Calcium [Mass/Vol] 9.0 mg/dL Normal 7.6-11.0 [facility] Comment on above: Performed By: #### M 8200.1000 #### [facility] [address] [place], [address] Chloride [Moles/Vol] 90 mmol/L Low 98-108 [facility] Comment on above: Performed By: #### M 8200.1000 #### [facility] [address] [place], [address] CO2 [Moles/Vol] 23.9 mmol/L Normal 21.0-32.0 [facility] Comment on above: Performed By: #### M 8200.1000 #### [facility] [address] [place], [address] Creatinine [Mass/Vol] 6.59 mg/dL High 0.70-1.20 [facility] Comment on above: Performed By: #### M 8200.1000 #### [facility] [address] [place], [address] ECRCL 11.26 ml/min Low 50-250 [facility] Comment on above: Performed By: #### M 8200.1000 #### [facility] [address] [place], [address] GAP 18 High 5-15 [facility] Comment on above: Performed By: #### M 8200.1000 #### [facility] [address] [place], [address] GFR/1.73 sq M.predicted among non-blacks MDRD (S/P/Bld) [Vol rate/Area] 9 mL/min/{1.73_m2} Low >60 [facility] Comment on above: Result Comment: mL/m in/1.73m2 CKD-EPI Creatinine Equation (2020) Performed By: #### M 8200.1000 #### [facility] [address] [place], [address] Globulin (S) [Mass/Vol] 3.3 g/dL Normal 2.2-4.2 [facility] Comment on above: Performed By: #### M 8200.1000 #### [facility] [address] [place], [address] Glucose [Mass/Vol] 113 mg/dL High 70-99 [facility] Comment on above: Performed By: #### M 8200.1000 #### [facility] [address] [place], [address] Potassium [Moles/Vol] 3.2 mmol/L Low 3.3-5.1 [facility] Comment on above: Performed By: #### M 8200.1000 #### [facility] [address] [place], [address] Sodium [Moles/Vol] 132 mmol/L Low 133-145 [facility] Comment on above: Performed By: #### M 8200.1000 #### [facility] [address] [place], [address] T PROT 6.5 g/dL Normal 5.9-8.4 [facility] Comment on above: Performed By: #### M 8200.1000 #### [facility] [address] [place], [address] Urea nitrogen [Mass/Vol] 52 mg/dL High 4-19 [facility] Comment on above: Performed By: #### M 8200.1000 #### [facility] [address] [place], [address] Emergency Department Summary on 10-31-2024 Emergency Department Summary [facility] Medical Records Department [address] [place] [address] Emergency Department Summary 10/31/24 MR#: [id number] Acct: [id number] Name: MARLO ADAMSON Rep #: [id number] : 1960 64 From: Jimy Jarquin MD [...] for this and has no other complaints. [facility] Medical History Wears dentures Alcohol use Marijuana [...] hydrocortisone 2.5 % topical cream 1 applic ME QD-BID PRN hemorrhoi ds 10/13/24 Unknown Rx [...] Air Positi (more content not included)... Normal [facility] Eosinophil percentageOrdered By: Jimy Jarquin on 10-31-2024 Eosinophils/100 WBC (Bld) 0.1 % 0-5 [facility] Erythrocyte distribution wid th (RBC) [Ratio]Ordered By: Jimy Jarquin on 10-31-2024 Erythrocyte distribution width (RBC) [Entitic vol] 44.1 fL High 35.1-43.9 [facility] Erythrocyte distribution wid th ratioOrdered By: Jimy Jarquin on 10-31-2024 Erythrocyte distribution width (RBC) [Ratio] 13.5 % 11.6-14.6 [facility] Estimation of creatinine nicolas aranceOrdered By: Jimy Jarquin on 10-31-2024 Estimated Creatinine Clearance Calc 11.97 ml/min Low 50-250 [facility] GFR/1.73 sq M.predicted joann g non-blacks MDRD (S/P/Bld) [Vol rate/Area]Ordered By: Jimy Jarquin on 10-31-2024 Estimated GFR (MDRD) Non-Af Amer 9 Low >60 [facility] Comment on above: mL/min/1.73m2 CKD-EP I Creatinine Equation (2020) Gram Stainon 10-31-2024 GS List Antibiotics [place] 48 Hours? zosyn, doxycycline Acceptable Specimen? Yes (<25 Epithelial cells per/lpf) Gram Stain 1+ Gram positive cocci 1+ White Blood Cells 1+ Epithelial cells 1+ Gram positive rods Normal [facility] Comment on above: Performed By: #### M 300.6085, M300.4500 #### [facility] [address] [place], [address] Gram stainOrdered By: Elidia Cunningham on 10-31-2024 Microscopic observation Gram stain Nom (Unsp spec) [facility] H AND P Exam - Hospitaliston 10-31-2024 H&P Exam - Hospitalist [facility] Medical Records Department [address] [place] [address] H P Exam - Hospitalist 10/31/24 0347 MR#: [id number] Acct: [id number] Name: MARLO ADAMSON Rep #: [id number] : 1960 64 From: Elidia Cunningham MD PCP: Dr. Marlo Pollard, DO Status:ADM IN Location: [facility] [place] [id number] HPI - General General Date of Admission: 10/31/24 Date of Service: 10/31/24 Chief Complaint: Cough, congestion, dyspnea, recent outpatient abx. HPI Narrative The patient is a 64-year-old male with past medical history M w/ PMHx: PCKD w/ ESRD (T-F), CAD s/p PCI, HTN, HLD, GERD, Tobacco use, Hx VTE (DVT) who presents to the [facility] ED on 10/31/24 with congestion, [...] the ED patient ministered IV Zosyn therapy. [facility] Medical History (Updated 10/31/24 @ 04:07 by [...] hydrocortisone 2.5 % topical cream 1 applic ME QD-BID PRN hemorrhoi ds 10/13/24 Unknown Rx [...] (Updated 10/31/24 @ 04:[address] Elidia Cnuningham MD) household members: none Smoking Status: Current [...] wounds. CARDIOVASCULAR (more content not included)... Normal [facility] Hematocrit Auto (Bld) [Volum e fraction]Ordered By: Jimy Jarquin on 10-31-2024 Hematocrit (Bld) [Volume fraction] 40.9 % 40-54 [facility] Hemoglobin measurementOrdere d By: Jimy Jarquin on 10-31-2024 Hemoglobin (Bld) [Mass/Vol] 14.4 g/dL 13.0-16.5 [facility] Immature granulocytes/100 WB C Auto (Bld)Ordered By: Jimy Jarquin on 10-31-2024 Immature granulocytes/100 WBC (Bld) 1.500 % High 0.0-0.9 [facility] Comment on above: IG% - Immature Granu locytes (promyelocytes, myelocytes and metamyelocytes) > 1% indicates that a LEFT SHIFT is Present. L. pneumophila Ag Ql (U)Orde red By: Elidia Cunningham on 10-31-2024 Legionella Antigen [facility] - Chemistry and C hemistry - challengeOrdered By: Elidia Cunningham on 10-31-2024 AST [Catalytic activity/Vol] 24 U/L <38 [facility] Legionella Antigen Urineon 0 10-31-2024 LEGU Legionella Antigen r esult interpretation: L pneumo Ag Ur Ql Negative Presumptive negative for Legionella pneumophila serogroup 1 antigen in urine, suggesting no recent or current infection. Legionella Ag, Urine Negative (See interpretation below) Normal [facility] Comment on above: Performed By: #### M 300.4600, M300.4500 #### [facility] [address] [place], [place], [id number] Lymphocytes Auto (Unsp spec) [#/Vol]Ordered By: Jimy Jarquin on 10-31-2024 Lymphocytes (Bld) [#/Vol] 0.86 10*3/uL 0.83-4.51 [facility] Lymphocytes/100 WBC Auto (Un sp spec)Ordered By: Jimy Jarquin on 10-31-2024 Lymphocytes/100 WBC (Bld) 5.3 % Low 19-41 [facility] M8200.1000on 10-31-2024 M8200.1000 Normal Reference Ran ge = Negative MRSA DNA Nose Ql ALICE+probe GeneXpert Instrument, PCR method MRSA DNA Nose Ql ALICE+probe RESULTS CALLED TO LESTER SOTO Clement 10/31/24 0844 Yanna Ferrell. REPORT READ BACK BY . MRSA PCR A MRSA POSITIVE A Meth. resistant Staph. aureus mecA A mecA Resistance Marker Detected A Normal [facility] Comment on above: Performed By: #### M 8200.1000 #### [facility] [address] [place], [place], [address] MCV (mean corpuscular volume ) determinationOrdered By: Jimy Jarquin on 10-31-2024 MCV (RBC) [Entitic vol] 89.5 fL 80-94 [facility] MRSA DNA ALICE+probe Ql (Nose) Ordered By: Elidia Cunningham on 10-31-2024 MRSA (PCR) Meth. resistant Stap h. aureus Abnormal [facility] Magnesiumon 10-31-2024 Magnesium [Mass/Vol] 1.8 mg/dL Normal 1.5-2.2 [facility] Comment on above: Order Comment: Comme nts: May add to ED labsComments: may add to ED labs Performed By: #### M 300.4600, M300.4500 #### [facility] [address] [place], [address] Magnesium (Unsp spec) [Mass/ Vol]Ordered By: Elidia Cunningham on 10-31-2024 Magnesium [Mass/Vol] 1.8 mg/dL 1.5-2.2 [facility] Magnesium measurement (mass/ volume)Ordered By: Elidia Cunningham on 10-31-2024 Magnesium (Unsp spec) [Mass/Vol] 1.8 mg/dL 1.5-2.2 [facility] Mean corpuscular hemoglobin (MCH) determinationOrdered By: Jimy Jarquin on 10-31-2024 MCH (RBC) [Entitic mass] 31.5 pg 27.0-32.0 [facility] Mean corpuscular hemoglobin concentration (MCHC) determinationOrdered By: Jimy Jarquin on 10-31-2024 MCHC (RBC) [Mass/Vol] 35.2 g/dL 32-36 [facility] Mean platelet volume determi nationOrdered By: Jimy Jarquin on 10-31-2024 Platelet mean volume (Bld) [Entitic vol] 9.7 fL 6.2-12.0 [facility] Microbial respiratory cultur eOrdered By: Elidia Cunningham on 10-31-2024 Microorganism identified Cx Nom (Unsp spec) or Staphylococcus aureus isolated. [facility] Microorganism identified Cx Nom (Unsp spec)Ordered By: Elidia Cunningham on 10-31-2024 Respiratory Culture or Staphylococcus au reus isolated. [facility] Monocyte percentageOrdered B y: Jimy Jarquin on 10-31-2024 Monocytes/100 WBC (Bld) 7.1 % 0-10 [facility] Nasal methicillin resistant Staphylococcus aureus (MRSA) DNA detection by PCROrdered By: Elidia Cunningham on 10-31-2024 MRSA DNA ALICE+probe Ql (Nose) Meth. resistant Staph. aureus Abnormal [facility] Neutrophil percentageOrdered By: Jimy Jarquin on 10-31-2024 Neutrophils/100 WBC (Bld) 85.8 % High 47-70 [facility] Nucleated red blood cell per centageOrdered By: Jimy Jarquin on 10-31-2024 Nucleated RBC/100 WBC (Bld) [Ratio] 0 % 0-5 [facility] Phosphoruson 10-31-2024 Phosphate [Mass/Vol] 3.3 mg/dL Normal 2.7-4.5 [facility] Comment on above: Order Comment: Comme nts: May add to ED labsComments: may add to ED labs Performed By: #### M 300.4600, M300.4500 #### [facility] [address] [place], [address] Platelet countOrdered By: Odalis Jarquin on 10-31-2024 Platelets (Bld) [#/Vol] 197 10*3/uL 150-450 [facility] Potassium (Unsp spec) [Mass/ Vol]Ordered By: Jimy Jarquin on 10-31-2024 Potassium [Moles/Vol] 3.3 mmol/L 3.3-5.1 [facility] RBC Auto (Bld) [#/Vol]Ordere d By: Jimy Jarquin on 10-31-2024 RBC (Bld) [#/Vol] 4.57 10*6/uL Low 4.6-6.2 [facility] RESPIRATORY PANEL MOLECULARo n 10-31-2024 [...] Not Detected RSV B Not Detected Normal [facility] Comment on above: Performed By: #### M 100.638 #### [facility] [address] [place], [address] Respiratory pathogens DNA an d RNA panel ALICE+probe (Resp)Ordered By: Elidia Cunningham on 10-31-2024 Respiratory Panel (PCR) [facility] Respiratory pathogens detect ion panel by molecular detection methodOrdered By: Elidia Cunningham on 10-31-2024 Respiratory pathogens DNA and RNA panel ALICE+probe (Resp) [facility] Serum creatinine measurement (mass/volume)Ordered By: Jimy Jarquin on 10-31-2024 Creatinine [Mass/Vol] 6.33 mg/dL High 0.70-1.20 [facility] Serum globulin measurementOr dered By: Elidia Cunningham on 10-31-2024 Globulin (S) [Mass/Vol] 3.3 g/dL 2.2-4.2 [facility] Serum glucose measurement (m ass/volume)Ordered By: Jimy Jarquin on 10-31-2024 Glucose [Mass/Vol] 132 mg/dL High 70-99 [facility] Serum or plasma alanine velasquez otransferase (ALT) measurementOrdered By: Elidia Cunningham on 10-31-2024 ALT [Catalytic activity/Vol] 22 U/L <47 [facility] Serum or plasma albumin cuong urement (mass/volume)Ordered By: Elidia Cunningham on 10-31-2024 Albumin [Mass/Vol] 3.2 g/dL Low 3.4-4.8 [facility] Serum or plasma albumin/glob ulin mass ratioOrdered By: Elidia Cunningham on 10-31-2024 Albumin/Globulin [Mass ratio] 1.0 {ratio} 0.9-2.4 [facility] Serum or plasma alkaline padmini sphatase measurementOrdered By: Elidia Cunningham on 10-31-2024 ALP [Catalytic activity/Vol] 67 U/L 40-129 [facility] Serum or plasma calcium cuong urement (mass/volume)Ordered By: Jimy Jarquin on 10-31-2024 Calcium [Mass/Vol] 9.1 mg/dL 7.6-11.0 [facility] Serum or plasma urea nitroge n measurement (mass/volume)Ordered By: Jimy Jarquin on 10-31-2024 Urea nitrogen [Mass/Vol] 48 mg/dL High 4-19 [facility] Serum phosphorus measurement Ordered By: Elidia Cunningham on 10-31-2024 Phosphorus Level 3.3 mg/dL 2.7-4.5 [facility] Sodium levelOrdered By: Cristopher Jarquin on 10-31-2024 Sodium [Moles/Vol] 132 mmol/L Low 133-145 [facility] Strep pneumoniae Antig(UR,CS F)on 10-31-2024 STPAG URINE INTERPRETATION Strep pneumoniae Antig(UR,CSF) Strep pneumoniae Antig(UR,CSF) Negative Urine Presumptive negative for pneumococcal pneumonia, suggesting no current or recent pneumococcal infection. Infection due to S pneumoniae cannot be ruled out since the antigen present in the sample may be below the detection limit of the test. Strep pneumo Test Negative URINE (See interpretation below) Normal [facility] Comment on above: Performed By: #### M 300.8740, M300.4500 #### [facility] [address] [place], [place], [address] Streptococcus pneumoniae ant igen assayOrdered By: Elidia Cunningham on 10-31-2024 Streptococcus pneumoniae Antigen (M [facility] Total proteinOrdered By: Aut sheron Cunningham on 10-31-2024 Protein [Mass/Vol] 6.5 g/dL 5.9-8.4 [facility] Urine Legionella pneumophila antigen detectionOrdered By: Elidia Cunningham on 10-31-2024 L. pneumophila Ag Ql (U) [facility] White blood cell (WBC) count Ordered By: Jimy Jarquin on 10-31-2024 WBC (Bld) [#/Vol] 16.4 10*3/uL High 4.4-11.0 [facility] Surgery Visit Reporton 10-13 Surgery Visit Report [facility] [address] [place], [place] [address] OFFICE VISIT Date of Service: 10/13/24 MR#: [id number] Acct: [id number] Name: MARLO ADAMSON Rep #: [id number] : 1960 Provider: Dr. Maria Ines molina MD Age/Sex: 64/M [facility] Status: Signed Intake Vital Signs 06/08/21 [...] hydrocortisone 2.5 % topical cream 1 applic ME QD-BID PRN hemorrhoi ds 10/13/24 10/13/24 Rx with perineal applicator #30 grams (Proctozone-HC) oxycodone 10 mg tablet 10 mg PO TID PRN 10/13/24 10/13/24 History vitamin B complex-vitamin C-folic 1 tab PO QDAY 10/13/24 10/13/24 H istory acid 0.8 mg tablet (Renal-Svetlana) [facility] Medical History Acute renal failure Alcohol use [...] History (Updated 10/13/24 @ 14:13 by Nabila Prara) Father Cancer abdominal tumor--unsure type Brother Heart [...] states he did have a CT at [facility] sometime in the past we will try to get that record. Patient has never had a colonoscopy, den (more content not included)... Normal [facility] No Panel InformationOrdered By: Dr. Shirley on 10-01-2022 Hepatitis B Surface Antigen Non-Reactive Nonreactive [facility] Serum hepatitis B virus core antibody detectionOrdered By: Dr. Shirley on 10-01-2022 HBV core Ab Ql (S) Negative Negative [facility] Comment on above: Performed at: [address] [id number] Director: Ted Horne PhD, Phone: [phone] Serum hepatitis B virus surf valery antibody IgG detectionOrdered By: Dr. Shirley on 10-01-2022 HBV surface IgG Ql (S) Non-Reactive [facility] Comment on above: Non Reactive: Incons istent with immunity less than <10 mIU/mL Reactive: Consistent with immunity greater than or equal to 10 mIU/mL Basophil percentageOrdered B y: Dr. Shirley on 09-17-2022 Basophil percentage 4.2 mg/dL 2.5-4.9 [facility] Bilirubin [Mass/Vol] 0.50 mg/dL 0.20-1.00 [facility] Comment on above: For patients on eltr ombopag therapy, use of [place] TBIL is not recommended. Chloride [Moles/Vol] 109 mmol/L 98-107 [facility] Glucose [Mass/Vol] 96 mg/dL 74-106 [facility] Potassium [Moles/Vol] 4.9 mmol/L 3.5-5.1 [facility] Protein [Mass/Vol] 6.7 g/dL 6.4-8.2 [facility] Sodium [Moles/Vol] 138 mmol/L 136-145 [facility] WBC (Bld) [#/Vol] 6.8 10*3/uL 4.4-11.0 [facility] Blood erythrocytes count (nu mber/volume)Ordered By: Dr. Shirley on 09-17-2022 RBC (Bld) [#/Vol] 4.00 10*6/uL 4.6-6.2 [facility] Blood hemoglobin measurement (mass/volume)Ordered By: Dr. Shirley on 09-17-2022 Hemoglobin (Bld) [Mass/Vol] 11.8 g/dL 13.0-16.5 [facility] Blood platelet mean volumeOr dered By: Dr. Shirley on 09-17-2022 Platelet mean volume (Bld) [Entitic vol] 10.5 fL 6.2-12.0 [facility] Determination of erythrocyte mean corpuscular volume (MCV)Ordered By: Dr. Shirley on 09-17-2022 MCV (RBC) [Entitic vol] 91.8 fL 80-94 [facility] Direct bilirubinOrdered By: Dr. Shirley on 09-17-2022 Bilirubin.direct [Mass/Vol] 0.18 mg/dL 0.00-0.30 [facility] Hematocrit Auto (Bld) [Volum e fraction]Ordered By: Dr. Shirley on 09-17-2022 Hematocrit (Bld) [Volume fraction] 36.7 % 40-54 [facility] Laboratory - Chemistry and C hemistry - challengeOrdered By: Dr. Shirley on 09-17-2022 ALP [Catalytic activity/Vol] 68 U/L 45-117 [facility] ALT [Catalytic activity/Vol] 14 U/L 16-61 [facility] CO2 [Moles/Vol] 23.0 mmol/L 21.0-32.0 [facility] Globulin (S) [Mass/Vol] 3.5 g/dL 2.2-4.2 [facility] Urea nitrogen/Creatinine [Mass ratio] 9.7 mg/mg 10-20 [facility] Laboratory - Hematology and Cell countsOrdered By: Dr. Shirley on 09-17-2022 Erythrocyte distribution width (RBC) [Entitic vol] 43.1 fL 35.1-43.9 [facility] Erythrocyte distribution width (RBC) [Ratio] 12.8 % 11.6-14.6 [facility] MCH (RBC) [Entitic mass] 29.5 pg 27.0-32.0 [facility] MCHC Auto (RBC) [Mass/Vol]Or dered By: Dr. Shirley on 09-17-2022 MCHC (RBC) [Mass/Vol] 32.2 g/dL 32-36 [facility] No Panel InformationOrdered By: Dr. Shirley on 09-17-2022 Estimated GFR (MDRD) Amer 14 mL/min >60 [facility] Comment on above: GFR Calc Estimated GFR (MDRD) Non-Af Amer 11 mL/min >60 [facility] Comment on above: Non- GFR Calc Parathyroid Hormone (Intact) 327.7 pg/mL 18.4-80.1 [facility] Vitamin D 25-Hydroxy 45.6 ng/mL [facility] Comment on above: Vitamin D 25(OH) Sta tus Range Deficiency <20 ng/mL (50nmol/L) Insufficiency 20 - 30 ng/mL (50 - 75 nmol/L) Sufficiency 30 - 100 ng/mL (75 - 250 nmol/L) Toxicity >100 ng/mL (>250 nmol/L) Platelets bldOrdered By: Dr. Shirley on 09-17-2022 Platelets (Bld) [#/Vol] 121 10*3/uL 150-450 [facility] Serum or plasma albumin cuong urement (mass/volume)Ordered By: Dr. Shirley on 09-17-2022 Albumin [Mass/Vol] 3.2 g/dL 3.2-5.0 [facility] Serum or plasma calcium cuong urement (mass/volume)Ordered By: Dr. Shirley on 09-17-2022 Calcium [Mass/Vol] 8.6 mg/dL 8.5-10.1 [facility] Serum or plasma creatinine m easurement (mass/volume)Ordered By: Dr. Shirley on 09-17-2022 Creatinine [Mass/Vol] 5.54 mg/dL 0.70-1.30 [facility] Comment on above: The validity of the calculated GFR & GFRAA in patients over 70 years has not been determined. Clinical correlation is essential. Serum or plasma urea nitroge n measurement (mass/volume)Ordered By: Dr. Shirley on 09-17-2022 Urea nitrogen [Mass/Vol] 54 mg/dL 7-18 [facility] Thin prep Papanicolaou smear with manual screeningOrdered By: Dr. Shirley on 09-17-2022 Thin prep Papanicolaou smear with manual screening 11 U/L 15-37 [facility] Thin prep Papanicolaou smear with manual screening 6 5-15 [facility] Urine creatinine measurement (mass/volume)Ordered By: Dr. Shirley on 09-17-2022 Creatinine (U) [Mass/Vol] 67.30 mg/dL NO RANGE EST. [facility] Urine protein measurement (m ass/volume)Ordered By: Dr. Shirley on 09-17-2022 Protein (U) [Mass/Vol] 146.1 mg/dL 0.0-11.8 [facility] Urine protein/creatinine mas s ratioOrdered By: Dr. Shirley on 09-17-2022 Protein/Creatinine (U) [Mass ratio] 2171 mg/g CRE 0-200 [facility] Basophil percentageon 2021 Basophil percentage 4.0 mg/dL 2.5-4.9 [facility] Work Phone: [phone] Chloride [Moles/Vol] 111 mmol/L 98-107 [facility] Work Phone: Glucose [Mass/Vol] 92 mg/dL 74-106 [facility] Work Phone: [phone] Potassium [Moles/Vol] 4.5 mmol/L 3.5-5.1 [facility] Work Phone: Sodium [Moles/Vol] 137 mmol/L 136-145 [facility] Work Phone: [phone] WBC (Bld) [#/Vol] 6.9 10*3/uL 4.4-11.0 [facility] Work Phone: [phone] Blood erythrocytes count (nu mber/volume)on 11-19-2021 RBC (Bld) [#/Vol] 4.31 10*6/uL 4.6-6.2 [facility] Work Phone: [phone] Blood hemoglobin measurement (mass/volume)on 11-19-2021 Hemoglobin (Bld) [Mass/Vol] 12.7 g/dL 13.0-16.5 [facility] Work Phone: [phone] Blood platelet mean volumeon 11-19-2021 Platelet mean volume (Bld) [Entitic vol] 10.1 fL 6.2-12.0 [facility] Work Phone: Determination of erythrocyte mean corpuscular volume (MCV)on 11-19-2021 MCV (RBC) [Entitic vol] 90.0 fL 80-94 [facility] Work Phone: Hematocrit Auto (Bld) [Volum e fraction]on 11-19-2021 Hematocrit (Bld) [Volume fraction] 38.8 % 40-54 [facility] Work Phone: Laboratory - Chemistry and C hemistry - challengeon 11-19-2021 CO2 [Moles/Vol] 20.0 mmol/L 21.0-32.0 [facility] Work Phone: Urea nitrogen/Creatinine [Mass ratio] 9.7 mg/mg 10-20 [facility] Work Phone: Laboratory - Hematology and Cell countson 11-19-2021 Erythrocyte distribution width (RBC) [Entitic vol] 44.6 fL 35.1-43.9 [facility] Work Phone: Erythrocyte distribution width (RBC) [Ratio] 13.5 % 11.6-14.6 [facility] Work Phone: MCH (RBC) [Entitic mass] 29.5 pg 27.0-32.0 [facility] Work Phone: MCHC Auto (RBC) [Mass/Vol]on 11-19-2021 MCHC (RBC) [Mass/Vol] 32.7 g/dL 32-36 [facility] Work Phone: No Panel Informationon 11-19 Estimated GFR (MDRD) Amer 18 mL/min >60 [facility] Work Phone: Comment on above: GFR Calc Estimated GFR (MDRD) Non-Af Amer 15 mL/min >60 [facility] Work Phone: Comment on above: Non- GFR Calc Parathyroid Hormone (Intact) 148.8 pg/mL 18.4-80.1 [facility] Work Phone: Vitamin D 25-Hydroxy 61.0 ng/mL [facility] Work Phone: Comment on above: Vitamin D 25(OH) Sta tus Range Deficiency <20 ng/mL (50nmol/L) Insufficiency 20 - 30 ng/mL (50 - 75 nmol/L) Sufficiency 30 - 100 ng/mL (75 - 250 nmol/L) Toxicity >100 ng/mL (>250 nmol/L) Platelets bldon 11-19-2021 Platelets (Bld) [#/Vol] 146 10*3/uL 150-450 [facility] Work Phone: Serum or plasma albumin cuong urement (mass/volume)on 11-19-2021 Albumin [Mass/Vol] 3.3 g/dL 3.2-5.0 [facility] Work Phone: Serum or plasma calcium cuong urement (mass/volume)on 11-19-2021 Calcium [Mass/Vol] 8.9 mg/dL 8.5-10.1 [facility] Work Phone: Serum or plasma creatinine m easurement (mass/volume)on 11-19-2021 Creatinine [Mass/Vol] 4.42 mg/dL 0.70-1.30 [facility] Work Phone: Comment on above: The validity of the calculated GFR & GFRAA in patients over 70 years has not been determined. Clinical correlation is essential. Serum or plasma urea nitroge n measurement (mass/volume)on 11-19-2021 Urea nitrogen [Mass/Vol] 43 mg/dL 7-18 [facility] Work Phone: Urine creatinine measurement (mass/volume)on 11-19-2021 Creatinine (U) [Mass/Vol] 109.00 mg/dL NO RANGE EST. [facility] Work Phone: [phone] Urine protein measurement (m ass/volume)on 11-19-2021 Protein (U) [Mass/Vol] 61.4 mg/dL 0.0-11.8 [facility] Work Phone: Urine protein/creatinine mas s ratioon 11-19-2021 Protein/Creatinine (U) [Mass ratio] 563 mg/g CRE 0-200 [facility] Work Phone: Basophil percentageon 2021 Chloride [Moles/Vol] 111 mmol/L 98-107 [facility] Work Phone: Glucose [Mass/Vol] 91 mg/dL 74-106 [facility] Work Phone: Potassium [Moles/Vol] 4.7 mmol/L 3.5-5.1 [facility] Work Phone: Sodium [Moles/Vol] 140 mmol/L 136-145 [facility] Work Phone: Laboratory - Chemistry and C hemistry - challengeon 08-10-2021 CO2 [Moles/Vol] 25.0 mmol/L 21.0-32.0 [facility] Work Phone: Urea nitrogen/Creatinine [Mass ratio] 10.7 mg/mg 10-20 [facility] Work Phone: No Panel Informationon 08-10 Estimated GFR (MDRD) Amer 18 mL/min >60 [facility] Work Phone: Comment on above: GFR Calc Estimated GFR (MDRD) Non-Af Amer 15 mL/min >60 [facility] Work Phone: Comment on above: Non- GFR Calc Serum or plasma calcium cuong urement (mass/volume)on 08-10-2021 Calcium [Mass/Vol] 9.1 mg/dL 8.5-10.1 [facility] Work Phone: Serum or plasma creatinine m easurement (mass/volume)on 08-10-2021 Creatinine [Mass/Vol] 4.29 mg/dL 0.70-1.30 [facility] Work Phone: Comment on above: The validity of the calculated GFR & GFRAA in patients over 70 years has not been determined. Clinical correlation is essential. Serum or plasma urea nitroge n measurement (mass/volume)on 08-10-2021 Urea nitrogen [Mass/Vol] 46 mg/dL 7-18 [facility] Work Phone: Thin prep Papanicolaou smear with manual screeningon 08-10-2021 Thin prep Papanicolaou smear with manual screening 4 5-15 [facility] Work Phone: Urine creatinine measurement (mass/volume)on 08-10-2021 Creatinine (U) [Mass/Vol] 92.10 mg/dL NO RANGE EST. [facility] Work Phone: Urine protein measurement (m ass/volume)on 08-10-2021 Protein (U) [Mass/Vol] 51.2 mg/dL 0.0-11.8 [facility] Work Phone: Urine protein/creatinine mas s ratioon 08-10-2021 Protein/Creatinine (U) [Mass ratio] 556 mg/g CRE 0-200 [facility] Work Phone: CNCOon 10-18-[address] [facility] CNPNon 09-29-2020 CNPN Telephone (FAMPWS) MARLO ADAMSON ([id number]) 1960 M Date Time Provider Department 09/29/20 [...] and abscess of unspecified site [L03*01/29/2007 12/15/2018 [place] NOS EPISODE CARE UNSPEC [I21.9] 02/03/2007 Hematuria [...] TO WILKES III, MD on 09/29/[address] [facility] XR Chest PA and Lateralon IMPRESSION: Stable exam without acute findings. [employer] Rep: SAW Transcribe Date/Time: Jul 04 2020 5:42P Dictated by : CESARIO DÍAZ MD This examination was interpreted and the report reviewed and electronically signed by: CESARIO DÍAZ MD on Jul 04 2020 5:46PM [facility] DIVISION OF RADIOLOGY * * *Final Report* [...] post median sternotomy. DIVISION OF RADIOLOGY Provider, [facility] - 07/04/2020 * * *Final Report* [...] IMPRESSION IMPRESSION: Stable exam without acute findings. Biopharmaceutical Rep: SAW Transcribe Date/Time: Jul 04 2020 5:42P Dictated by : CESARIO DÍAZ MD This examination was interpreted and the report reviewed and electronically signed by: CESARIO DÍAZ MD on Jul 04 2020 5:46PM EST [facility] Radiology Study observation (narrative) [facility] XR Chest PA and LateralOrder ed By: [facility] Provider on 07-04-2020 [facility] Vital Signs Date Time Vital Sign Value Performing Clinician Karen leung 01-30-2025 05:25-0400 Body temperature 98.5 [degF] Dr. Marlo Pollard DO Work Phone: [facility] 01-30-2025 05:25-0400 Diastolic blood pressure 80 mm[Hg] Dr. Marlo Pollard DO Work Phone: [facility] 01-30-2025 05:25-0400 Heart rate 84 /min Dr. Marlo Pollard DO Work Phone: [facility] 01-30-2025 05:25-0400 Respiratory rate 16 /min Dr. Marlo Pollard DO Work Phone: [facility] 01-30-2025 05:25-0400 SaO2% (BldA) [Mass fraction] 96 % Dr. Marlo Pollard DO Work Phone: [facility] 01-30-2025 05:25-0400 Systolic blood pressure 118 mm[Hg] Dr. Marlo Pollard DO Work Phone: [facility] 01-30-2025 03:30-0400 Body height 177.[address] Marlo Pollard DO Work Phone: [facility] 01-30-2025 03:30-0400 Body mass index (BMI) [Ratio] 23.3 kg/m2 Dr. Marlo Pollard DO Work Phone: [facility] 01-30-2025 03:30-0400 Body weight [address] Marlo Pollard DO Work Phone: [facility] 01-21-2025 16:26-0400 Body temperature 97.7 [degF] Dr. Marlo Pollard DO Work Phone: [facility] 01-21-2025 16:26-0400 Diastolic blood pressure 77 mm[Hg] Dr. Marlo Pollard DO Work Phone: [facility] 01-21-2025 16:26-0400 Heart rate 56 /min Dr. Marlo Pollard DO Work Phone: [facility] 01-21-2025 16:26-0400 Respiratory rate 16 /min Dr. Marlo Pollard DO Work Phone: [facility] 01-21-2025 16:26-0400 SaO2% (BldA) [Mass fraction] 97 % Dr. Marlo Pollard DO Work Phone: [facility] 01-21-2025 16:26-0400 Systolic blood pressure 149 mm[Hg] Dr. Marlo Pollard DO Work Phone: [facility] 01-21-2025 10:25-0400 Body height 177.[address] Marlo Pollard DO Work Phone: [facility] 01-21-2025 10:25-0400 Body mass index (BMI) [Ratio] 23.1 kg/m2 Dr. Marlo Pollard DO Work Phone: [facility] 01-21-2025 10:25-0400 Body weight [address] Marlo Pollard DO Work Phone: [facility] 12-22-2024 08:50-0400 Body temperature 97.3 [degF] Dr. Marlo Pollard DO Work Phone: [facility] 12-22-2024 08:50-0400 Diastolic blood pressure 66 mm[Hg] Dr. Marlo Pollard DO Work Phone: [facility] 12-22-2024 08:50-0400 Heart rate 63 /min Dr. Marlo Pollard DO Work Phone: [facility] 12-22-2024 08:50-0400 Respiratory rate 16 /min Dr. Marlo Pollard DO Work Phone: [facility] 12-22-2024 08:50-0400 SaO2% (BldA) [Mass fraction] 100 % Dr. Marlo Pollard DO Work Phone: [facility] 12-22-2024 08:50-0400 Systolic blood pressure 101 mm[Hg] Dr. Marlo Pollard DO Work Phone: [facility] 12-22-2024 06:33-0400 Body height 177.[address] Marlo Pollard DO Work Phone: [facility] 12-22-2024 06:33-0400 Body mass index (BMI) [Ratio] 23.3 kg/m2 Dr. Marlo Pollard DO Work Phone: [facility] 12-22-2024 06:33-0400 Body weight [address] Marlo Pollard DO Work Phone: [facility] 11-02-2024 13:11-0400 Heart rate 67 /min Dr. Marlo Pollard DO Work Phone: [facility] 11-02-2024 13:11-0400 Respiratory rate 16 /min Dr. Marlo Pollard DO Work Phone: [facility] 11-02-2024 13:11-0400 SaO2% (BldA) [Mass fraction] 92 % Dr. Marlo Pollard DO Work Phone: [facility] 11-02-2024 13:06-0400 Body temperature 97.8 [degF] Dr. Marlo Pollard DO Work Phone: [facility] 11-02-2024 13:06-0400 Diastolic blood pressure 65 mm[Hg] Dr. Marlo Pollard DO Work Phone: [facility] 11-02-2024 13:06-0400 Systolic blood pressure 138 mm[Hg] Dr. Marlo Pollard DO Work Phone: [facility] 11-02-2024 03:44-0400 Inhaled oxygen flow rate 2 L/min Dr. Marlo Pollard DO Work Phone: [facility] 11-01-2024 11:41-0400 Body mass index (BMI) [Ratio] 22.2 kg/m2 Dr. Marlo Pollard DO Work Phone: [facility] 11-01-2024 11:41-0400 Body weight 70.[address] Marlo Pollard DO Work Phone: [facility] 10-31-2024 16:55-0400 Body height 177.[address] Marlo Pollard DO Work Phone: [facility] 10-31-2024 03:47-0400 Body temperature 98.1 [degF] Dr. Marlo Pollard DO Work Phone: [facility] 10-31-2024 03:47-0400 Diastolic blood pressure 69 mm[Hg] Dr. Marlo Pollard DO Work Phone: [facility] 10-31-2024 03:47-0400 Heart rate 77 /min Dr. Marlo Pollard DO Work Phone: [facility] 10-31-2024 03:47-0400 Respiratory rate 16 /min Dr. Marlo Pollard DO Work Phone: [facility] 10-31-2024 03:47-0400 SaO2% (BldA) [Mass fraction] 93 % Dr. Marlo Pollard DO Work Phone: [facility] 10-31-2024 03:47-0400 Systolic blood pressure 146 mm[Hg] Dr. Marlo Pollard DO Work Phone: [facility] 10-31-2024 03:45-0400 Inhaled oxygen flow rate 3 L/min Dr. Marlo Pollard DO Work Phone: [facility] 10-31-2024 01:58-0400 Body height 177.[address] Marlo Pollard DO Work Phone: [facility] 10-31-2024 01:58-0400 Body mass index (BMI) [Ratio] 22.7 kg/m2 Dr. Marlo Pollard DO Work Phone: [facility] 10-31-2024 01:58-0400 Body weight 71.[address] Marlo Pollard DO Work Phone: [facility] 10-13-2024 14:14-0400 Body mass index (BMI) [Ratio] 24.2 kg/m2 Dr. Marlo Pollard DO Work Phone: [facility] 10-13-2024 14:14-0400 Body weight 76.[address] Marlo Pollard DO Work Phone: [facility] 10-13-2024 14:14-0400 Diastolic blood pressure 79 mm[Hg] Dr. Marlo Pollard DO Work Phone: [facility] 10-13-2024 14:14-0400 Heart rate 66 /min Dr. Marlo Pollard DO Work Phone: [facility] 10-13-2024 14:14-0400 Respiratory rate 17 /min Dr. Marlo Pollard DO Work Phone: [facility] 10-13-2024 14:14-0400 SaO2% (BldA) [Mass fraction] 97 % Dr. Marlo Pollard DO Work Phone: [facility] 10-13-2024 14:14-0400 Systolic blood pressure 156 mm[Hg] Dr. Marlo Pollard DO Work Phone: [facility] Encounters Encounter Date Encounter Type Care Provider Facility Start: 01-30-2025 Non-patient / Non-visit Dr. Fili Nj MD -[facility] Start: 01-30-2025 Admission to [facility] Dr. Fili Nj MD -Technical Service Engineer Work Phone: Start: 01-30-[address] Marlo luis DO Work Phone: -Technical Service Engineer Start: 01-21-2025 Non-patient / Non-visit Dr. Ervin Mckoy MD -[facility] Start: 01-21-2025 End: 01-21-2025 Admission to same day surgery center Dr. Maria Ines Mckoy MD -[facility] Day [facility] Start: 01-21-2025 End: 01-21-[address] Marlo Pollard DO Work Phone: -Surgical Day Care Start: 12-22-2024 Non-patient / Non-visit Dr. Ervin Mckoy MD -[facility] Start: 12-22-2024 End: 12-22-2024 Admission to same day surgery center Dr. Maria Ines Mckoy MD -Endoscopy Work Phone: Start: 12-22-2024 End: 12-22-[address] Marlo Pollard DO Work Phone: [facility] Work Phone: Start: 11-02-2024 Non-patient / Non-visit Dr. Himanshu lee [facility] Work Phone: Start: 11-01-2024 Non-patient / Non-visit Dr. Himanshu lee [facility] Work Phone: Start: 10-31-2024 ambulatory [facility] Start: 10-31-2024 End: 11-02-2024 Evaluation and management of inpatient Dr. Elidia Cunningham MD -Medical Surgical 3 Work Phone: Start: 10-13-2024 End: 10-13-[address] Maria Ines Mckoy MD -[facility] Work Phone: Start: 10-13-2024 End: 10-13-2024 ambulatory [facility] Start: 10-01-2022 End: 10-01-2022 ambulatory [facility] Work Phone: Start: 10-01-2022 End: 10-01-2022 Patient encounter procedure [facility] Start: 09-17-2022 End: 09-17-2022 ambulatory [facility] Work Phone: Start: 09-17-2022 End: 09-17-2022 Patient encounter procedure [facility] Start: 11-19-2021 End: 11-19-[address] Marlo Pollard Work Phone: [facility] Start: 08-10-2021 End: 08-10-[address] Marlo Pollard Work Phone: [facility] Start: 07-31-2021 End: 07-31-[address] Marlo Pollard Work Phone: [facility] Start: 07-04-2020 End: 07-04-2020 Subsequent hospital visit by physician [facility] Work Phone: Radiology Comment on above: [...] panel - S stevo or Plasma Xr [facility] Work Phone: Plan of Treatment Date Care Activity Detail Author Start: 2035 RSV Vaccine (1 - 1-dose 75+ series) RSV Vaccine (1 - 1-dose 75+ series) [facility] Start: 04-14-2029 Urine microalbumin profile DTaP,Tdap,Td Vaccine (3 - Td or Tdap) [facility] Start: 06-14-2025 Lipid panel Lipid Screening [facility] Start: 04-18-2025 Prostate specific antigen measurement Prostate Cancer Screening Discussion [facility] Start: 01-30-2025 Hemorrhoidectomy Hemorrhoidectomy (Not Applicable) [facility] Start: 01-30-2025 Hospital admission, emergency, from emergency room, medical nature [facility] Start: 01-30-2025 Administration of blood product [facility] Start: 01-30-2025 Leukocyte reduced red blood cells [facility] Start: 01-21-2025 Patient discharge [facility] Start: 12-22-2024 Colsc flx w/rmvl of tumor polyp lesion snare tq COLONOSCOPY W/LESION REMOVAL [facility] Start: 12-22-2024 Patient discharge [facility] Start: 11-02-2024 Patient discharge [facility] Start: 11-02-2024 Physiotherapy of chest [facility] Start: 11-01-2024 End: 11-01-2024 [facility] Start: 11-01-2024 Hemodialysis care [facility] Start: 10-31-2024 Following clinical pathway protocol [facility] Start: 10-31-2024 Assessment of risk of venous thromboembolism [facility] Start: 10-31-2024 Bacteria identified in Sputum by Culture [facility] Start: 10-31-2024 Fall prevention [facility] Start: 10-31-2024 Incentive spirometry [facility] Start: 10-31-2024 Inhalation therapy procedure [facility] Start: 10-31-2024 Insertion of catheter into peripheral vein [facility] Start: 10-31-2024 Introduction of urinary catheter [facility] Start: 10-31-2024 Measuring intake and output [facility] Start: 10-31-2024 Methicillin resistant Staphylococcus aureus (MRSA) DNA [Presence] in Nose by ALICE with probe detection [facility] Start: 10-31-2024 Methicillin resistant Staphylococcus aureus screening test [facility] Start: 10-31-2024 Oxygen therapy [facility] Start: 10-31-2024 Providing care according to standard [facility] Start: 10-31-2024 Provision of activity privileges [facility] Start: 10-31-2024 Referral to pastry assistant [facility] Start: 10-31-2024 Referral to occupational therapist [facility] Start: 10-31-2024 Referral to service [facility] Start: 10-31-2024 Taking nasal swab [facility] Start: 10-31-2024 [facility] Start: 10-31-2024 Following clinical pathway protocol [facility] Start: 04-06-2025 Verification routine [facility] Start: 10-31-2024 Legionella pneumophila Ag [Presence] in Urine [facility] Start: 10-31-2024 Respiratory pathogens DNA and RNA panel - Respiratory specimen by ALICE with probe detection [facility] Start: 10-31-2024 Streptococcus pneumoniae antigen assay [facility] Start: 10-31-2024 Admission procedure [facility] Start: 10-31-2024 Serum inorganic phosphate measurement [facility] Start: 10-31-2024 Patient referral to dietitian [facility] Start: 10-31-2024 [facility] Start: 03-28-2024 Covid-19 Vaccine () Covid-19 Vaccine () [facility] Start: 03-28-2024 Influenza vaccination Influenza Vaccine (#1) [facility] Start: 04-19-2023 Diabetes Screening Diabetes Screening [facility] Start: 06-19-2021 Annual PCP Team Chronic Disease Visit Annual PCP Team Chronic Disease Visit [facility] Start: 06-14-2021 Hepatitis B surface antibody level LDL Cholesterol [facility] Start: 04-19-2021 Complete blood count Hemoglobin/Hematocrit [facility] Start: 06-18-2020 Creatinine measurement Serum Creatinine [facility] Start: 06-07-2020 Screening for malignant neoplasm of colon [facility] Start: 08-12-2016 Pneumococcal vaccination Pneumococcal Vaccine (2 of 2 - PPSV23 or PCV20) [facility] Start: 2010 Shingrix Vaccine (1 of 2) Shingrix Vaccine (1 of 2) [facility] Start: 2005 Screening for malignant neoplasm of colon [facility] Start: 1978 Anxiety Screening Anxiety Screening [facility] Start: 1978 BP Controlled (<130/80) BP Controlled (<130/80) [facility] Start: 1978 Depression Screening Depression Screening [facility] Start: 1978 Hepatitis C screening Hepatitis C Screening [facility] Start: 1978 HIV screening HIV Screening [facility] Alanine aminotransfe rase [Enzymatic activity/volume] in Serum or Plasma [facility] Albumin [Mass/volume ] in Serum or Plasma [facility] Alkaline phosphatase [Enzymatic activity/volume] in Serum or Plasma [facility] Anion gap in Serum o r Plasma [facility] Bilirubin, total measurement [facility] BUN/Creatinine ratio [facility] Calcium [Mass/volume ] in Serum or Plasma [facility] Carbon dioxide, tota l [Moles/volume] in Central venous blood [facility] Colonoscopy [facility] Creatinine [Mass/vol ume] in Serum or Plasma [facility] Erythrocyte mean corpuscular volume determination [facility] Glucose [Mass/volume ] in Serum or Plasma [facility] Hematocrit [Volume Fraction] of Blood [facility] Hemoglobin [Mass/vol ume] in Blood [facility] Leukocytes [#/volume ] in Blood [facility] Magnesium measurement [facility] Mean corpuscular hemoglobin concentration determination [facility] Mean corpuscular hemoglobin determination [facility] Measurement of renal function [facility] Neutrophil count [facility] Neutrophil percent differential count [facility] Patient referral [facility] Work Phone: Platelets [#/volume] in Blood [facility] Potassium measurement [facility] Red blood cell count [facility] Red cell distributio n width determination [facility] Serum chloride measurement [facility] Sodium measurement [facility] Total protein measurement [facility] Urea nitrogen [Mass/volume] in Serum or Plasma [facility] Immunizations Immunization Date Immunization Notes Care Provider Kartik gee 04-14-2019 tetanus toxoid, redu bud diphtheria toxoid, and acellular pertussis vaccine, adsorbed [facility] Work Phone: [facility] 06-17-2016 pneumococcal conjuga te vaccine, 13 valent [facility] Work Phone: [facility] 06-17-2016 influenza virus vacc ine, unspecified formulation [facility] Work Phone: [facility] 06-17-2013 tetanus toxoid, redu bud diphtheria toxoid, and acellular pertussis vaccine, adsorbed [facility] Work Phone: [facility] Payers Date Payer Category Payer Medicare [id number] 2024 Self-pay [id number] 2024 Medicare [id number] 2015 Medicare MEDICARE MEDICAR E A AND B [id number] 2015-Present [phone] [address] [address] [place] [address] Medicare [id number] Medicare [id number] Unknown [id number] Unknown [id number] Unknown [id number] Unknown [id number] Unknown [id number] Unknown [id number] Unknown [id number] Unknown [id number] Unknown [id number] Unknown [id number] Social History Date Type Detail Facility Start: 06-06-2021 End: 06-06-2021 Tobacco smoking status LAIS Unknown if ever smoked [facility] Start: 1960 Sex Assigned At Male [facility] Start: 07-03-2011 End: 01-30-2025 Tobacco smoking status LAIS Smokes tobacco daily [facility] Work Phone: History of tobacco use Cigarette Smoker [facility] Start: 07-03-2011 End: 2020 Cigarettes smoked current (pack per day) - Reported 1 [facility] Start: 07-03-2011 Tobacco use and exposure Smokeless tobacco non-user [facility] Start: 06-19-2020 Alcoholic beverage intake Current non-drinker of alcohol (finding) [facility] Start: 06-19-2020 End: 2020 Tobacco use panel [facility] National Score (1-10 0), lower number is lower risk Not on file [facility] Start: 05-15-2010 Tobacco Comment occasionally [facility] Start: 1960 Sex assigned at Not on file [facility] Start: 06-04-2020 End: 07-04-2020 Exposure to SARS-CoV-2 (event) Not sure [facility] Start: 10-31-2024 End: 11-02-2024 Sex Male (finding) [facility] Medical Equipment Procedure Code Equipment [...] Result Facility 11-02-2024 Functional status Ambulates;Bathroom Priv [facility] Work Phone: Mental Status Date Assessment Result Facility 01-21-2025 Cognitive function Voice/Name [facility] Work Phone: 12-22-2024 Cognitive function Voice/Name [facility] Work Phone: 11-02-2024 Cognitive function Voice/Name [facility] Work Phone: 10-31-2024 Cognitive function Level Of Cons ciousness Awake;Alert;Appropriate;Follow s Commands [facility] Work Phone: Clinical Notes 2019 to 01-30-2025 Note Date & Type Note Facility 01-30-2025 Consult note [facility] 01-30-2025 Discharge summary [facility] 01-30-2025 History and physical note [facility] 01-21-2025 Discharge summary Note Date/Time January 21, 2025 2:19pm [facility] Medical Records Department [address] [place] [address] Instructions for Home/Discharge Instructions 01/21/25 1417 MR#: [id number] Acct: [id number] Name: MARLO ADAMSON Rep #:[id number] : 1960 64 From: Maria Ines Mckoy MD PCP: Dr. Marlo Pollard, DO Status:REG [facility] Discharge Instructions Diet Discharge Diet: Light diet [...] weeks call the office for follow-up appointment [phone] Test Results: Test results from this visit will be discussed in further detail at your follow-up appointment, if applicable. Discharge Plan Admission Attending Provider: Maria Ines Mckoy Primary Care Provider: Marlo Pollard Instructions Print Language: Cook Islander Discharge Orders/Prescriptions Prescriptions: Continued metoprolol tartrate 25 [...] % cream with perineal applicator 1 applic ME QD-BID PRN (Reason: hemorrhoids) Qty: 30 0RF [...] CC: Dr. Marlo Pollard DO ~ Signed [facility] Work Phone: 1(904) 834-396406-27-2025 Consult note [facility] Medical Records Department [address] [place] [address] Anesthesia Postop Eval I 01/21/25 1429 MR#: [id number] Acct: [id number] Name: MARLO ADAMSON Rep #:[id number] : 1960 64 From: Rosy Garcia PCP: Dr. Marlo Pollard DO Status:REG SDC Y Race: C Location: [place] [address] Anesthesia: Postop Eval I Current Vital Signs [...] Rosy Larkinigner Signature: Date CC: ~ Signed [facility]06-27-2025 Discharge summary [facility] Medical Records Department [address] [place] [address] Instructions for Home/Discharge Instructions 01/21/25 1417 MR#: [id number] Acct: [id number] Name: MARLO ADAMSON Rep #:[id number] : 1960 64 From: Maria Ines Mckoy MD PCP: Dr. Marlo Pollard, Status:REG [facility] Discharge Instructions Diet Discharge Diet: Light diet - advance as tolerated Activity Discharge Activity: May Shower (No Mecredez for sitz bath's) Lifting Restrictions: No lifting [...] weeks call the office for follow-up appointment [phone] Test Results: Test results from this visit will be discussed in further detail at your follow- up appointment, if applicable. Discharge Plan Admission Attending Provider: Maria Ines Mckoy Primary Care Provider: Marlo Pollard Instructions Print Language: Cook Islander Discharge Orders/Prescriptions Prescriptions: Continued metoprolol tartrate 25 [...] % cream with perineal applicator 1 applic ME QD-BID PRN (Reason: hemorrhoids) Qty: 30 0RF [...] CC: Dr. Marlo Pollard DO ~ Signed [facility]06-27-2025 Consult note Author Isacc Cavanaugh [facility] Note Date/Time January 21, 2025 11:0 3am [facility] Medical Records Department [address] [place] [address] Pre-Anesthesia Evaluation 01/21/25 1057 MR#: [id number] Acct: [id number] Name: MARLO ADAMSON Rep #:[id number] : 1960 64 From: Isacc Cavanaugh MD PCP: Dr. Marlo Pollard DO Status:REG SDC Y Race: C Location: [place] [address] ASA Classification* ASA Classification ASA Classification: 3 [...] possible fistulotomy Anesthesia History Anesthesia History - driller operator: Anesthesia History - driller operator Hx Hospitalization Yes: 11-19 infection 01/07/25 09:36 [...] sips of water?: Yes PONV PONV - driller operator: PONV - driller operator Female No 01/07/25 09:36 HX of Motion [...] 01/21/25 10:25 Respiratory Assessment Respiratory Assessment - driller operator: Respiratory Tract Infection Hx - driller operator Hx Respiratory Tract Infection No 01/07/25 09:36 STOP Sleep Apnea STOP Sleep Apnea - driller operator: STOP Sleep Apnea - driller operator Hx Hypertension Yes 01/07/25 09:36 Hx Sleep [...] Tobacco Use History Tobacco Use History - driller operator: Tobacco Use History - driller operator Tobacco Use Smoking Status Current every day [...] today.) Hematologic Medial History Hematologic Hx - driller operator: 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 Hx of Blood Transfusion No 01/07/25 09:36 [...] confused, unrespo /Reproduction History /Reproductive History - driller operator: /Reproductive Hx- driller operator Hx Now No 01/07/25 09:36 Gestational Age [...] hydrocortisone 2.5 % topical cream 1 applic ME QD-BID PRN hemorrhoids 10/13/24 01/20/25 Rx with [...] torres MD> Date _ Isacc Cavanaugh MD [facility] Signature: Date CC: ~ Signed [facility] Work Phone: 1(376) 148-934606-27-2025 History and physical note Author Maria Ines Mckoy [facility] Note Date/Time January 21, 2025 11:0 [facility] Medical Records Department [address] [place] [address] History & Physical Exam 01/21/25 1004 MR#: [id number] Acct: [id number] Name: MARLO ADAMSON Rep #:[id number] : 1960 64 From: Maria Ines Mckoy MD PCP: Dr. Marlo Pollard, DO Status:[facility] Location: [place] [address] History and Physical Date of Admission: 01/21/25 12/22/24 0708 MR#: [id number] Acct: [id number] Name: MARLO ADAMSON Rep #: [id number] : 1960 64 From: Maria Ines Mckoy MD PCP: Dr. Marlo Plolard, DO Status: REG [facility] Location: [place] [address] HPI - General General Date of Service: [...] states he did have a CT at [facility] sometime in the past we will try to get that record. Patient has never had a colonoscopy, denies any family history of colon cancer. [facility] Medical History (Updated 12/22/24 @ 07:14 by [...] hydrocortisone 2.5 % topical cream 1 applic ME QD-BID PRN hemorrhoids 10/1312/21/24 Rx with perineal [...] ACHE Discharge Is Pt Admitted From a [place] [facility], or a Alf: No After D/C, Where [...] Dr. Marlo Pollard DO; Dr. Maria Ines Mckyo MD~ Signed ADDENDUM by Dr. Marai Ines Mckoy MD on 01/21/25 at 1055 [...] Dr. Maria Ines Mckoy MD ~* Signed [facility] Work Phone: 1(715) 973-527306-27-2025 Consult note [facility] Medical Records Department [address] [place] [address] Pre-Anesthesia Evaluation 01/21/25 1057 MR#: [id number] Acct: [id number] Name: MARLO ADAMSON Rep #:[id number] : 1960 64 From: Isacc Cavanaugh MD PCP: Dr. Marlo Pollard, DO Status:REG SDC Y Race: C Location: [place] [address] ASA Classification* ASA Classification ASA Classification: 3 [...] possible fistulotomy Anesthesia History Anesthesia History - driller operator: Anesthesia History - driller operator Hx Hospitalization Yes: 11-19 infection 01/07/25 09:36 [...] sips of water?: Yes PONV PONV - driller operator: PONV - driller operator Female No 01/07/25 09:36 HX of Motion [...] 01/21/25 10:25 Respiratory Assessment Respiratory Assessment - driller operator: Respiratory Tract Infection Hx - driller operator Hx Respiratory Tract Infection No 01/07/25 09:36 STOP Sleep Apnea STOP Sleep Apnea - driller operator: STOP Sleep Apnea - driller operator Hx Hypertension Yes 01/07/25 09:36 Hx Sleep [...] Tobacco Use History Tobacco Use History - driller operator: Tobacco Use History - driller operator Tobacco Use Smoking Status Current every day [...] today.) Hematologic Medial History Hematologic Hx - driller operator: 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 Hx of Blood Transfusion No 01/07/25 09:36 [...] confused, unrespo /Reproduction History /Reproductive History - driller operator: /Reproductive Hx- driller operator Hx Now No 01/07/25 09:36 Gestational Age [...] hydrocortisone 2.5 % topical cream 1 applic ME QD-BID PRN hemorrhoids 10/13/24 01/20/25 Rx with [...] Isacc Roy Signature: Date CC: ~ Signed [facility]06-27-2025 History and physical note [facility] Medical Records Department [address] [place] [address] History & Physical Exam 01/21/25 1004 MR#: [id number] Acct: [id number] Name: MARLO ADAMSON Rep #:[id number] : 1960 64 From: Maria Ines Mckoy MD PCP: Dr. Marlo Pollard, DO Status:REG [facility] Location: [place] [address] History and Physical Date of Admission: 01/21/25 12/22/24 0708 MR#: [id number] Acct: [id number] Name: MARLO ADAMSON Rep #: [id number] : 1960 64 From: Maria Ines Mckoy MD PCP: Dr. Marlo Pollard, DO Status: REG [facility] Location: [place] [address] HPI - General General Date of Service: [...] states he did have a CT at [facility] sometime in the past we will try to get that record. Patient has never had a colonoscopy, denies any family history of colon cancer. [facility] Medical History (Updated 12/22/24 @ 07:14 by [...] hydrocortisone 2.5 % topical cream 1 applic ME QD-BID PRN hemorrhoids 10/1312/21/24 Rx with perineal [...] ACHE Discharge Is Pt Admitted From a [facility], or a Alf: No After D/C, Where [...] Dr. Maria Ines Mckoy MD ~* Signed [facility]06-27-2025 [facility] Medical Records Department [address] [place] [address] History Physical Exam 01/21/25 1004 MR#: [id number] Acct: [id number] Name: MARLO ADAMSON Rep #: [id number] : 1960 64 From: Maria Ines Mckoy MD PCP: Dr. Marlo Pollard, Status:REG [facility] Location: [address] History and Physical Date of Admission: 01/21/25 12/22/24 0708 MR#: [id number] Acct: [id number] Name: MARLO ADAMSON Rep #: [id number] : 1960 64 From: Maria Ines Mckoy MD PCP: Dr. Marlo Pollard, Status: REG [facility] Location: [place] [address] HPI - General General Date of Service: [...] states he did have a CT at [facility] sometime in the past we will try to get that record. Patient has never had a colonoscopy, denies any family history of colon cancer. [facility] Medical History (Updated 12/22/24 @ 07:14 by [...] hydrocortisone 2.5 % topical cream 1 applic ME QD-BID PRN hemorrhoids 10/13/24 Rx with perineal [...] Cunningham MD) Father Cancer (more content not included)...[facility]05-28-2025 Consult note Author Yuly Champagne [facility] Note Date/Time December 22, 2024 7:25a m [facility] Medical Records Department [address] [place] [address] Pre-Anesthesia Evaluation 12/22/24 0721 MR#: [id number] Acct: [id number] Name: MARLO ADAMSON Rep #:[id number] : 1960 64 From: Yuly Champagne PCP: Dr. Marlo Pollard, DO Status:REG [facility] Y Race: C Location: [place] [address] ASA Classification* ASA Classification ASA Classification: 3 [...] Procedure(s): COLONOSCOPY Anesthesia History Anesthesia History - driller operator: Anesthesia History - driller operator Hx Hospitalization Yes: 10/2024 FLU/DIALYSIS 12/22/24 07:09 [...] take am of surgery PONV PONV - driller operator: PONV - driller operator Female No 12/21/24 09:34 HX of Motion [...] 12/22/24 06:33 Respiratory Assessment Respiratory Assessment - driller operator: Respiratory Tract Infection Hx - driller operator Hx Respiratory Tract Infection No 12/22/24 07:09 STOP Sleep Apnea STOP Sleep Apnea - driller operator: STOP Sleep Apnea - driller operator Hx Hypertension Yes: FAIRLY CONTROLLED WITH 12/22/24 [...] Tobacco Use History Tobacco Use History - driller operator: Tobacco Use History - driller operator Tobacco Use Smoking Status Current every day smoker 12/22/24 07:09 Hx Tobacco Use Yes 12/21/24 09:34 Years Smoking Packs Smoked per Day Smoking Cessation Date was within the last 15 years Hx Smoking Cessation Date 12/21/24 09:34 Hx Smoking Cessation Counseling Hematologic Medial History Hematologic Hx - driller operator: 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 Hx of Blood Transfusion No 12/21/24 09:34 [...] confused, unrespo /Reproduction History /Reproductive History - driller operator: /Reproductive Hx- driller operator Hx Now No 12/22/24 07:09 Gestational Age [...] hydrocortisone 2.5 % topical cream 1 applic ME QD-BID PRN hemorrhoids 10/13/24 12/21/24 Rx with [...] Champagne Cosigner Signature: Date CC: ~ Signed [facility] Work Phone: 1(806) 574-217805-28-2025 History and physical note Author Maria Ines Mckoy [facility] Note Date/Time December 22, 2024 7:17a m [facility] Medical Records Department [address] [place] [address] History & Physical Exam 12/22/24707 MR#: [id number] Acct: [id number] Name: MARLO ADAMSON Rep #:[id number] : 1960 64 From: Maria Ines Mckoy MD PCP: Dr. Marlo Pollard, DO Status:[facility] Location: [place] [address] HPI - General General Date of Service: [...] states he did have a CT at [facility] sometime in the past we will try to get that record. Patient has never had a colonoscopy, denies any family history of colon cancer. [facility] Medical History (Updated 12/22/24 @ 07:14 by [...] hydrocortisone 2.5 % topical cream 1 applic ME QD-BID PRN hemorrhoids 10/13/24 12/21/24 Rx with [...] ACHE Discharge Is Pt Admitted From a [facility], or a Alf: No After D/C, Where [...] DO; Dr. Maria Ines Mckoy MD~ Signed [facility] Work Phone: 1(222) [phone] Procedure note [facility] Medical Records Department [address] [place] [address] Colonoscopy Report MR#: [id number] Acct: [id number] Name: MARLO ADAMSON Rep #:[id number] : 1960 64 From: Maria Ines Mckoy MD PCP: Dr. Marlo Pollard DO Status:REG [facility] Patient Name: Marlo Adamson Procedure Date: 12/22/2024 [...] pathology results. Procedure Code(s): --- Professional --- 51253, PT, Colonoscopy, flexible; with removal of tumor(s), polyp(s), or other lesion(s) by snare technique Diagnosis Code(s): --- Professional --- Z12.11, Encounter for screening for malignant neoplasm of colon K64.2, Third degree hemorrhoids D12.2, Benign neoplasm of ascending colon K57.30, Diverticulosis of large intestine without perforation or abscess without bleeding CPT copyright 2021 [employer]. All rights reserved. The codes documented in this report are preliminary and upon surgical coder review may be revised to meet current compliance requirements. MD Maria Ines Patiño MD 12/22/2024 8:44:55 AM This report has been signed electronically. Number of Addenda: 0 Note Initiated On: 12/22/2024 8:03 AM 12/22/24 0844 Date _ Maria Ines Mckoy MD Cosigner Signature: Date (if indicated) CC: Dr. Marlo Pollard, DO; Dr. Maria Ines Mckoy MD ~ Date Dictated: 12/22/24802 Date Transcribed: [employer] Rep: TR Signed [facility]05-28-2025 Procedure note [facility] Medical Records Department [address] [place] [address] Operative Report - CC Letter MR#: [id number] Acct: [id number] Name: MARLO ADAMSON Rep #:[id number] : 1960 64 From: Maria Ines Mckoy MD PCP: Dr. Marlo Pollard, DO Status:REG [facility] 12/22/2024 Marlo Pollard [address] [facility] [place] [address] [place] [address] Re : Colonoscopy procedure for Marlo Adamson [...] MD ~ Date Dictated: 12/22/24802 Date Transcribed: [employer] Rep: TR Signed [facility]05-28-2025 Consult note [facility] Medical Records Department [address] [place] [address] Anesthesia Postop Eval I 12/22/2442 MR#: [id number] Acct: [id number] Name: MARLO ADAMSON Rep #:[id number] : 1960 64 From: Joseph Hu PCP: Dr. Marlo Pollard, DO Status:REG SDC Y Race: C Location: [address] Anesthesia: Postop Eval I Current Vital [...] Joseph Roy Signature: Date CC: ~ Signed [facility]05-28-2025 Consult note [facility] Medical Records Department [address] [place] [address] Pre-Anesthesia Evaluation 12/22/24720 MR#: [id number] Acct: [id number] Name: MARLO ADAMSON Rodrigo Rep #:[id number] : 1960 64 From: Yuly Champagne PCP: Dr. Marlo Pollard, DO Status:REG SDC Y Race: C Location: [place] [address] ASA Classification* ASA Classification ASA Classification: 3 [...] Procedure(s): COLONOSCOPY Anesthesia History Anesthesia History - driller operator: Anesthesia History - driller operator Hx Hospitalization Yes: 10/2024 FLU/DIALYSIS 12/22/24 07:09 [...] take am of surgery PONV PONV - driller operator: PONV - driller operator Female No 12/21/24 09:34 HX of Motion [...] 12/22/24 06:33 Respiratory Assessment Respiratory Assessment - driller operator: Respiratory Tract Infection Hx - driller operator Hx Respiratory Tract Infection No 12/22/24 07:09 STOP Sleep Apnea STOP Sleep Apnea - driller operator: STOP Sleep Apnea - driller operator Hx Hypertension Yes: FAIRLY CONTROLLED WITH 12/22/24 [...] Tobacco Use History Tobacco Use History - driller operator: Tobacco Use History - driller operator Tobacco Use Smoking Status Current every day smoker 12/22/24 07:09 Hx Tobacco Use Yes 12/21/24 09:34 Years Smoking Packs Smoked per Day Smoking Cessation Date was within the last 15 years Hx Smoking Cessation Date 12/21/24 09:34 Hx Smoking Cessation Counseling Hematologic Medial History Hematologic Hx - driller operator: 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 Hx of Blood Transfusion No 12/21/24 09:34 [...] confused, unrespo /Reproduction History /Reproductive History - driller operator: /Reproductive Hx- driller operator Hx Now No 12/22/24 07:09 Gestational Age [...] hydrocortisone 2.5 % topical cream 1 applic ME QD-BID PRN hemorrhoids 10/13/24 12/21/24 Rx with [...] Yuly Roy Signature: Date CC: ~ Signed [facility]-28[facility]2025 History and physical note [facility] Medical Records Department [address] [facility] [place] [address] History & Physical Exam 12/22/24707 MR#: [id number] Acct: [id number] Name: MARLO ADAMSON Rep #:[id number] : 1960 64 From: Maria Ines Mckoy MD PCP: Dr. Marlo Pollard, DO Status:[facility] Location: [place] [address] HPI - General General Date of Service: [...] [facility] we will try to get that record. Patient has never had a colonoscopy, denies any family history of colon cancer. [facility] Medical History (Updated 12/22/24 @ 07:14 by [...] hydrocortisone 2.5 % topical cream 1 applic ME QD-BID PRN hemorrhoids 10/13/24 12/21/24 Rx with [...] ACHE Discharge Is Pt Admitted From a [facility], or a Alf: No After D/C, Where [...] DO; Dr. Maria Ines Mckoy MD~ Signed [facility]05-28-2025 [facility] Medical Records Department [address] [place] [address] History Physical Exam 12/22/24 0708 MR#: [id number] Acct: [id number] Name: MARLO ADAMSON Rep #: [id number] : 1960 64 From: Maria Ines Mckoy MD PCP: Dr. Marlo Pollard DO Status:[facility] Location: [place] [address] HPI - General General Date of Service: [...] states he did have a CT at [facility] sometime in the past we will try to get that record. Patient has never had a colonoscopy, denies any family history of colon cancer. [facility] Medical History (Updated 12/22/24 @ 07:14 by [...] hydrocortisone 2.5 % topical cream 1 applic ME QD-BID PRN hemorrhoi ds 10/13/24 12/21/24 Rx [...] of cardiac catheterization Hist (more content not included)...[facility]04-08-2025 Discharge summary Author Himanshu Almaguer [facility] Note Date/Time November 02, 2024 11:3 2am [facility] Medical Records Department [address] [place] [address] Discharge Summary 11/02/24 1124 MR#: [id number] Acct: [id number] Name: JUAN DIEGOMARLO Rodrigo Rep #:[id number] : 1960 64 From: Himanshu Almaguer DO PCP: Dr. Marlo Pollard DO Status:ADM IN Location: [place] [address] Providers Date of Admission: 10/31/24 Primary Care [...] Pt had issue with dialysis line today. [place] that the line clotted off due to [...] cream with perineal applicator (Proctozone-HC) 1 applic ME QD-BID PRN hemorrhoids #30 grams 10/13/24 oxycodone [...] 10/31/24 17:11 RMA (Rec: 10/31/24 17:11 RMA [id number]) Nutrition Malnutrition Evidence of Yes Malnutrition Exists [...] 73.4 H, Lymph % (Auto) 12.6 L, [place] % (Auto) 9.8, Eos % (Auto) 1.7, [...] % cream with perineal applicator 1 applic ME QD-BID PRN (Reason: hemorrhoids) Qty: 30 0RF [...] Self Care Charges/Coding Visit Charges Inpatient E&M: 85682 Disch Hosp >30min 11/02/24 1132 <Electronically signed by Himanshu Almaguer DO> Cosigner Signature (if applicable): CC: Dr. Himanshu Almaguer DO; Dr. Marlo Pollard DO~ Signed [facility] Work Phone: 1(622) 934-513604-08-2025 Progress note Author Himanshu Almaguer [facility] Note Date/Time November 02, 2024 11:2 4am [facility] Medical Records Department [address] [place] [address] Progress Note - Hospitalist 11/02/24 0711 MR#: [id number] Acct: [id number] Name: MARLO ADAMSON Rep #:[id number] : 1960 64 From: Himanshu Almaguer DO PCP: Dr. Marlo Pollard DO Status:ADM IN Location: [facility] WG484-5 Reason for Visit Reason for Visit: Diagnoses [...] 10/31/24 17:11 RMA (Rec: 10/31/24 17:11 RMA [id number]) Nutrition Malnutrition Evidence of Yes Malnutrition Exists [...] Pt had issue with dialysis line today. [place] that the line clotted off due to no heparinization. No need for fistulagram at this time. DW Dr. Shirley who is going to try to get him heparin for home dialysis. He may also try to get him a fistulagram as outpt. VTE prophylaxis: SQ heparin. 11/02/24 1124 <Electronically signed by Himanshu Almaguer DO> Cosigner Signature (if applicable): CC: ~ Signed [facility] Work Phone: 1(878) 471-452204-08-2025 Consult note Author Maranda Bustamante [facility] Note Date/Time November 02, 2024 11:0 0am [facility] Medical Records Department [address] [place] [address] Consultation - Nephrology 11/01/24 1205 MR#: [id number] Acct: [id number] Name: MARLO ADAMSON Rep #:[id number] : 1960 64 From: Maranda WORTHINGTON PCP: Dr. Marlo Pollard, DO Status:ADM IN Location: MS3 MA503-4 Assessment & Plan Assessment/Plan (1) ESRD (end [...] was poor and he has lost weight. [facility] Medical History (Updated 11/01/24 @ 12:07 by [...] hydrocortisone 2.5 % topical cream 1 applic ME QD-BID PRN hemorrhoids 10/13/24 Unknown Rx with [...] 10/31/24 17:11 RMA (Rec: 10/31/24 17:11 RMA [id number]) Nutrition Malnutrition Evidence of Yes Malnutrition Exists [...] 78.8 H, Lymph % (Auto) 11.3 L, [place] % (Auto) 7.5, Eos % (Auto) 1.1, [...] MD> CC: Dr. Marlo Pollard, ~ Signed [facility] Work Phone: 1(228) 800-787204-08-2025 Progress note [facility] Medical Records Department [address] [place] [address] Progress Note - Nephrology 11/02/24 1216 MR#: [id number] Acct: [id number] Name: MARLO ADAMSON Rep #:[id number] : 1960 64 From: Ying alfaro MD PCP: Dr. Marlo Pollard, Status:ADM IN Location: [place] [address]-1 Subjective Subjective no new complaints Objective Data [...] 10/31/24 17:11 RMA (Rec: 10/31/24 17:11 RMA [id number]) Nutrition Malnutrition Evidence of Yes Malnutrition Exists [...] 73.4 H, Lymph % (Auto) 12.6 L, [place] % (Auto) 9.8, Eos % (Auto) 1.7, [...] Cosigner Signature (if applicable): CC: ~ Signed [facility]04-08-2025 Discharge summary [facility] Medical Records Department [address] [place] [address] Discharge Summary 11/02/24 1124 MR#: [id number] Acct: [id number] Name: MARLO ADAMSON Rep #:[id number] : 1960 64 From: Himanshu Almaguer DO PCP: Dr. Marlo Pollard DO Status:ADM IN Location: [place] [address] Providers Date of Admission: 10/31/24 Primary Care [...] Pt had issue with dialysis line today. [place] that the line clotted off due to [...] cream with perineal applicator (Proctozone-HC) 1 applic ME QD-BID PRN hemorrhoids #30 grams 10/13/24 oxycodone [...] 10/31/24 17:11 RMA (Rec: 10/31/24 17:11 RMA [id number]) Nutrition Malnutrition Evidence of Yes Malnutrition Exists [...] 73.4 H, Lymph % (Auto) 12.6 L, [place] % (Auto) 9.8, Eos % (Auto) 1.7, [...] % cream with perineal applicator 1 applic ME QD-BID PRN (Reason: hemorrhoids) Qty: 30 0RF [...] Self Care Charges/Coding Visit Charges Inpatient E&M: 14658 Disch Hosp >30min 11/02/24 1132 Cosigner Signature (if applicable): CC: Dr. Himanshu Almaguer DO; Dr. Marlo Pollard DO~ Signed [facility]04-08-2025 [facility] Medical Records Department [address] [place] [address] Discharge Summary 11/02/24 1124 MR#: [id number] Acct: [id number] Name: MARLO ADAMSON Rep #: [id number] : 1960 64 From: Himanshu Almaguer DO PCP: Dr. Marlo Pollard DO Status:ADM IN Location: [place] [address] Providers Date of Admission: 10/31/24 Primary Care [...] Pt had issue with dialysis line today. [place] that the line clotted off due to [...] cream with perineal applicator (Proctozone-HC) 1 applic ME QD-BID PRN hemorrhoids #30 grams 10/13/24 oxycodone [...] 10/31/24 17:11 RMA (Rec: 10/31/24 17:11 RMA [id number]) Nutrition Malnutrition Evidence of Yes Malnutrition Exists [...] 73.4 H, Lymph % (Auto) 12.6 L, [place] % (Auto) 9.8, Eos % (Auto) 1.7, [...] Sputum, Expectorated/Coughed Resp (more content not included)... [facility]04-08-2025 Progress note [facility] Medical Records Department [address] [place] [address] Progress Note - Hospitalist 11/02/24710 MR#: [id number] Acct: [id number] Name: MARLO ADAMSON Rodrigo Rep #:[id number] : 1960 64 From: Himanshu Almaguer DO PCP: Dr. Marlo Pollard, DO Status:ADM IN Location: MS3 SC745-3 Reason for Visit Reason for Visit: Diagnoses [...] 10/31/24 17:11 RMA (Rec: 10/31/24 17:11 RMA [id number]) Nutrition Malnutrition Evidence of Yes Malnutrition Exists Malnutrition (severe Acute Illness/Injury ): Evidenced By Suboptimal Energy Intake (Severe),Weight Loss (Severe) Clinical Problem Acute Disease or Injury Related Malnutrition Etiology severe pro-admion malnutrition in the context of acute illness [...] Pt had issue with dialysis line today. [place] that the line clotted off due to no heparinization. No need for fistulagram at this time. DW Dr. Shirley who is going to try to get him heparin for home dialysis. He may also try to get him a fistulagram as outpt. VTE prophylaxis: SQ heparin. 11/02/24 1124 Cosigner Signature (if applicable): CC: ~ Signed [facility]04-08-2025 Consult note [facility] Medical Records Department [address] [place] [address] Consultation - Nephrology 11/01/24 1205 MR#: [id number] Acct: [id number] Name: MARLO ADAMSON Rep #:[id number] : 1960 64 From: Maranda mcmahan CONTROLLER REPAIRER AND TESTER-C PCP: Dr. Marlo Pollard, DO Status:ADM IN Location: [facility] AT127-0 Assessment & Plan Assessment/Plan (1) ESRD (end [...] was poor and he has lost weight. [facility] Medical History (Updated 11/01/24 @ 12:07 by [...] hydrocortisone 2.5 % topical cream 1 applic ME QD-BID PRN hemorrhoids 10/13/24 Unknown Rx with [...] 10/31/24 17:11 RMA (Rec: 10/31/24 17:11 RMA [id number]) Nutrition Malnutrition Evidence of Yes Malnutrition Exists [...] 78.8 H, Lymph % (Auto) 11.3 L, [place] % (Auto) 7.5, Eos % (Auto) 1.1, [...] 1100 CC: Dr. Marlo Pollard, ~ Signed [facility]04-07-2025 Consult note Author Fritz Moya [facility] Note Date/Time November 01, 2024 3:19 pm [facility] Medical Records Department [address] [place] [address] Pharmacokinetic/Renal -Consult 11/01/24 1310 MR#: [id number] Acct: [id number] Name: MARLO ADAMSON Rep #:[id number] : 1960 64 From: Fritz Moya PCP: Dr. Marlo Pollard, Status:ADM IN Y Location: [place] [address] Consult [facility]iotic [facility] Pharmacy has been consulted [...] Fritz simon> Date _ Fritz Moya 11/01/24 3028 <Electronically signed by Himanshu Almaguer DO> Cosigner Signature (if applicable): Date Himanshu Almaguer DO CC: ~ Signed [facility] Work Phone: 1(524) 469-628404-07-2025 Progress note Author Himanshu Almaguer [facility] Note Date/Time November 01, 2024 1:51 pm [facility] Medical Records Department [address] [place] [address] Progress Note - Hospitalist 11/01/24 0750 MR#: [id number] Acct: [id number] Name: MARLO ADAMSON Rep #:[id number] : 1960 64 From: Himanshu Almaguer DO PCP: Dr. Marlo Pollard, Status:ADM [facility] Reason for Visit Reason for Visit: Diagnoses [...] 10/31/24 17:11 RMA (Rec: 10/31/24 17:11 RMA [id number]) Nutrition Malnutrition Evidence of Yes Malnutrition Exists [...] 84.6 H, Lymph % (Auto) 6.7 L, [place] % (Auto) 7.3, Eos % (Auto) 0.1, [...] 78.8 H, Lymph % (Auto) 11.3 L, [place] % (Auto) 7.5, Eos % (Auto) 1.1, [...] Pt had issue with dialysis line today. [place] that the line clotted off due to no heparinization. No need for fistulagram at this time. VTE prophylaxis: SQ heparin. Charges/Coding Visit Charges Inpatient E&M: 58366 Subs Hosp L2 11/01/24 8373 <Electronically signed by Himanshu Almaguer DO> Cosigner Signature (if applicable): CC: ~ Signed [facility] Work Phone: 1(952) 106-850904-07-2025 Consult note [facility] Medical Records Department [address] [place] [address] Pharmacokinetic/Renal -Consult 11/01/24 1310 MR#: [id number] Acct: [id number] Name: MARLO ADAMSON Rep #:[id number] : 1960 64 From: Fritz Moya PCP: Dr. Marlo Pollard, DO Status:ADM IN Y Location: [facility] FJ787-2 Consult Antibiotic Management Pharmacy has been consulted [...] Date Himanshu Almaguer DO CC: ~ Signed [facility]04-07-2025 Progress note [facility] Medical Records Department [address] [place] [address] Progress Note - Hospitalist 11/01/24 0750 MR#: [id number] Acct: [id number] Name: MARLO ADAMSON Rep #:[id number] : 1960 64 From: Himanshu Almaguer DO PCP: Dr. Marlo Pollard, DO Status:ADM IN [facility] Reason for Visit Reason for Visit: Diagnoses [...] 10/31/24 17:11 RMA (Rec: 10/31/24 17:11 RMA [id number]) Nutrition Malnutrition Evidence of Yes Malnutrition Exists [...] 84.6 H, Lymph % (Auto) 6.7 L, [place] % (Auto) 7.3, Eos % (Auto) 0.1, [...] 78.8 H, Lymph % (Auto) 11.3 L, [place] % (Auto) 7.5, Eos % (Auto) 1.1, [...] Pt had issue with dialysis line today. [place] that the line clotted off due to no heparinization. No need for fistulagram at this time. VTE prophylaxis: SQ heparin. Charges/Coding Visit Charges Inpatient E&M: 83157 Subs Hosp L2 11/01/24 1351 Cosigner Signature (if applicable): CC: ~ Signed [facility]04-06-2025 Progress note Author Chirag Lucero [facility] Note Date/Time October 31, 2024 7:03 pm [facility] Medical Records Department [address] [place] [address] Progress Note - Hospitalist 10/31/24 190 MR#: [id number] Acct: [id number] Name: MARLO ADAMSON Rep #:[id number] : 1960 64 From: Chirag Dixon PCP: Dr. Marlo Pollard, DO Status:ADM IN [facility] Hospitalist Note 64-year-old gentleman was admitted with [...] nasal screen. Denies prior history of MRSA. Automotive Technology Instructor consulted. On 3 L of oxygen. Did not have dialysis nurse today but I do not see an urgent need of dialysis today can be dialyzed early in the morning. Discussed with Dr. Shirley Visit Charges Inpatient E&M: 92268 Subs Hosp L1 10/31/24 1228 <Electronically signed [...] Cosigner Signature (if applicable): cc: ~* Signed [facility] Work Phone: 1(535) 356-195704-06-2025 Progress note [facility] Medical Records Department [address] [place] [address] Progress Note - Hospitalist 10/31/241901 MR#: [id number] Acct: [id number] Name: MARLO ADAMSON Rodrigo Rep #:[id number] : 1960 64 From: Chirag Dixon PCP: Dr. Marlo Pollard, DO Status:ADM IN Location: [facility] CZ255-3 Hospitalist Note 64-year-old gentleman was admitted with [...] nasal screen. Denies prior history of MRSA. Automotive Technology Instructor consulted. On 3 L of oxygen. Did not have dialysis nurse today but I do not see an urgent need of dialysis today can be dialyzed early in the morning. Discussed with Dr. Shirley Visit Charges Inpatient E&M: 63251 Subs Hosp L1 10/31/24 1228 Cosigner Signature [...] Cosigner Signature (if applicable): cc: ~* Signed [facility]04-06-2025 Progress note Author Yign Shirley [facility] Note Date/Time October 31, 2024 11:5 6am [facility] Medical Records Department [address] [place] [address] Progress Note 10/31/24 1148 MR#: [id number] Acct: [id number] Name: MARLO ADAMSON Rep #:[id number] : 1960 64 From: Ying alfaro MD PCP: Dr. Marlo Pollard, DO Status:ADM IN Location: [facility] RL349-5 Progress Note patient is known to me. [...] Signature (if applicable): Date cc: ~* Signed [facility] Work Phone: 1(308) 172-258504-06-2025 Progress note [facility] Medical Records Department [address] [place] [address] Progress Note 10/31/24 1148 MR#: [id number] Acct: [id number] Name: MARLO ADAMSON Rep #:[id number] : 1960 64 From: Ying alfaro MD PCP: Dr. Marlo Pollard, DO Status:ADM IN Location: [facility] CG001-7 Progress Note patient is known to me. [...] Signature (if applicable): Date cc: ~* Signed [facility]04-06-2025 History and physical note Author Elidia Cunningham [facility] Note Date/Time October 31, 2024 4:10 am [facility] Medical Records Department [address] [place] [address] H&P Exam - Hospitalist 10/31/24 0347 MR#: [id number] Acct: [id number] Name: MARLO ADAMSON Rep #:[id number] : 1960 64 From: Elidia Cunningham MD PCP: Dr. Marlo Pollard, DO Status:ADM IN Location: [facility] VE444-0 HPI - General General Date of Admission: 10/31/24 Date of Service: 10/31/24 Chief Complaint: Cough, congestion, dyspnea, recent outpatient abx. HPI Narrative The patient is a 64-year-old male with past medical history M w/ PMHx: PCKD w/ ESRD (T-F), CAD s/p PCI, HTN, HLD, GERD, Tobacco use, Hx VTE (DVT) who presents to the [facility] ED on 10/31/24 with congestion, [...] the ED patient ministered IV Zosyn therapy. [facility] Medical History (Updated 10/31/24 @ 04:07 by [...] hydrocortisone 2.5 % topical cream 1 applic ME QD-BID PRN hemorrhoids 10/13/24 Unknown Rx with [...] (Auto) 85.8 H, Lymph % (Auto) 5.3 L,[place] % (Auto) 7.1, Eos % (Auto) 0.1, [...] pleural effusion. Mild elevation right Reading [facility] Assessment & Plan Assessment/Plan (1) Hypoxemia: (2) Pneumonia: (3) Failure of outpatient treatment: PLAN: Plan The patient is a 64-year-old male with past medical history M w/ PMHx: PCKD w/ ESRD, CAD s/p PCI, HTN, HLD, GERD, Tobacco use, Hx VTE (DVT) who presents to [facility] ED on 10/31/24 with congestion, fatigue, [...] Patient does not have healthcare power of ip technology transactions attorney or living will in place but he notes that he would want his ex- Nabila Triplett to be his medical decision-maker if necessary. Discussed CODE status at length including difference between FULL code, DNR-CCA and DNR-CC status. Following discussions about the differences in these status, requested Full Code status. [facility] Face to Face Time: 16 minutes. Charges/Coding Visit Charges Inpatient E&M: 89341 Init Hosp L3 Procedures Hospitalists Procedures: 60056 Advncd Care Plan 30 Min 10/31/24 0410 <Electronically signed by Elidia Cunningham MD> Cosigner Signature (if applicable): CC: Dr. Elidia Cunningham MD; Dr. Marlo Pollard, ~ Signed [facility] Work Phone: 1(944) 983-827104-06-2025 Discharge summary Author Jimy Jarquin [facility] Note Date/Time October 31, 2024 3:46 am [facility] Medical Records Department [address] [place] [address] Emergency Department Summary 10/31/24 MR#: [id number] Acct: [id number] Name: MARLO ADAMSON Rep #:[id number] : 1960 64 From: Jimy Jarquin MD [...] for this and has no other complaints. [facility] Medical History Wears dentures Alcohol use Marijuana [...] hydrocortisone 2.5 % topical cream 1 applic ME QD-BID PRN hemorrhoids 10/13/24 Unknown Rx with [...] 85.8 H Lymph % (Auto) 5.3 L [place] % (Auto) 7.1 Eos % (Auto) 0.1 [...] pleural effusion. Mild elevation right Reading Location[facility] Management Discussion w/another healthcare provider: Hospitalist Discharge [...] % cream with perineal applicator 1 applic ME QD-BID PRN (Reason: hemorrhoids) Qty: 30 0RF [...] DO [Primary Care Provider] - Print Language: Cook Islander Disposition Disposition: Acute Care [facility] What to do if you have Problems For any increased pain, shortness of breath, bleeding, nausea or vomiting, chestpain, or any unexpected problems, contact your Primary Care Provider. Call [employer] [facility] ([phone]) or report to the closest Emergency Room. Call 911 if necessary. 10/31/24345 <Electronically signed by Jimy Jarquin MD> Cosigner Signature (if applicable): CC: Dr. Marlo Pollard, DO ~ Signed [facility] Work Phone: 1(118) 491-970204-06-2025 History and physical note [facility] Medical Records Department [address] [place], [place] [address] [place] [address] H&P Exam - Hospitalist 10/31/24 0347 MR#: [id number] Acct: [id number] Name: MARLO ADAMSON Rep #:[id number] : 1960 64 From: Elidia Cunningham MD PCP: Dr. Marlo Pollard, Status:ADM IN Location: [facility] HW913-1 HPI - General General Date of Admission: 10/31/24 Date of Service: 10/31/24 Chief Complaint: Cough, congestion, dyspnea, recent outpatient abx. HPI Narrative The patient is a 64-year-old male with past medical history M w/ PMHx: PCKD w/ ESRD (T-F), CAD s/p PCI, HTN, HLD, GERD, Tobacco use, Hx VTE (DVT) who presents to the [facility] ED on 10/31/24 with congestion, [...] the ED patient ministered IV Zosyn therapy. [facility] Medical History (Updated 10/31/24 @ 04:07 by [...] hydrocortisone 2.5 % topical cream 1 applic ME QD-BID PRN hemorrhoids 10/13/24 Unknown Rx with [...] (Auto) 85.8 H, Lymph % (Auto) 5.3 L,[place] % (Auto) 7.1, Eos % (Auto) 0.1, [...] use, Hx VTE (DVT) who presents to [facility] ED on 10/31/24 with congestion, fatigue, [...] Patient does not have healthcare power of ip technology transactions attorney or living will in place but henotes that he would want his ex- Nabila Triplett to be his medical decision-maker if necessary. Discussed CODE status at length including difference between FULL code, DNR-CCA and DNR-CC status. Following discussions about the differences in these status, requested Full Code status. [facility] Face to Face Time: 16 minutes. Charges/Coding Visit Charges Inpatient E&M: 78497 Init Hosp L3 Procedures Hospitalists Procedures: 99878 Advncd Care Plan 30 Min 10/31/24 0410 Cosigner Signature (if applicable): CC: Dr. Elidia Cunningham MD; Dr. Marlo Pollard, ~ Signed [facility]04-06-2025 Discharge summary [facility] Medical Records Department [address] [place] [address] Emergency Department Summary 10/31/24 MR#: [id number] Acct: [id number] Name: MARLO ADAMSON Rep #:[id number] : 1960 64 From: Jimy Jarquin MD [...] for this and has no other complaints. [facility] Medical History Wears dentures Alcohol use Marijuana [...] hydrocortisone 2.5 % topical cream 1 applic ME QD-BID PRN hemorrhoids 10/13/24 Unknown Rx with [...] 85.8 H Lymph % (Auto) 5.3 L [place] % (Auto) 7.1 Eos % (Auto) 0.1 [...] pleural effusion. Mild elevation right Reading Location[facility] Management Discussion w/another healthcare provider: Hospitalist Discharge [...] % cream with perineal applicator 1 applic ME QD-BID PRN (Reason: hemorrhoids) Qty: 30 0RF [...] DO [Primary Care Provider] - Print Language: Cook Islander Disposition Disposition: Acute Care [facility] What to do if you have Problems For any increased pain, shortness of breath, bleeding, nausea or vomiting, chestpain, or any unexpected problems, contact your Primary Care Provider. Call [facility] ([phone]) or report tothe closest Emergency Room. Call 911 if necessary. 10/31/24 0346 Cosigner Signature (if applicable): CC: Dr. Marlo Pollard DO ~ Signed [facility]04-06-2025 Radiology Diagnostic study note [facility] Imaging Services [address] [place] [address] Chest PA and Lateral MR#: [id number] Acct: [id number] Name: MARLO ADAMSON Rep #: [id number] : 1960 M 64 From: Dominga Graf DO PCP: Dr. Marlo Pollard DO Status: PRE ER Study:Chest PA and Lateral Date of Exam: 10/31/24 Exam# [id number] Ordering Dr: Juliane Jarquin MD PROCEDURE: PA [...] Jarquin MD; Dr. Marlo Pollard DO ~ [employer] Rep: [facility]igned [facility] [facility] Evaluation note* Diagnosis Onset Date Resolution Status Admit Date Anal fistula acute October 13, 2024 1:52pm Hemorrhoids, internal, with bleeding acute October 13, 2024 1:52pm Screening for colon cancer acute October 13, 2024 1:52pm Failure of outpatient treatment acut e October 31, 2024 3:49am Hypoxemia acute October 31 3:49am Pneumonia acute October 31 3:49am [facility] Work Phone: 1(117) 464-818303-19-2025 Evaluation note* Diagnosis Onset Date Resolution Status [...] 31 3:49am Pneumonia acute October 31 3:49am [facility] Work Phone: 1(889) 511-739203-19-2025 Evaluation note* Diagnosis Onset Date Resolution Status [...] colon cancer resolved December 22, 2024 6:11am [facility] Work Phone: 1(184) 626-716503-19-2025 Evaluation note* Diagnosis Onset Date Resolution Status [...] S/P hemorrhoidectomy acute January 30, 2025 4:30am [facility] Work Phone: 1(954) 724-701911-09-2021 NoteHNO ID: [id number] Author: Casey Castañeda Population Health Navigator Service: [...] future healthcare decisions with a power of ip technology transactions attorney, living will, or advance directives? No. Please bring a copy to your next appointment or email to Referrals: N/A Message Sent to Practice: NO Navigation Signature: Casey Castañeda Population Health Navigator June 05, 2021 2:09 [facility]11-09-2021 NotePatient Outreach (NETNAV) MARLO ADAMSON ([id number]) 1960 M Date Time Provider Department 06/05/21 [...] future healthcare decisions with a power of ip technology transactions attorney, living will, or advance directives? No. Please bring a copy to your next appointment or email to [email or web address] Referrals: N/A Message Sent to Practice: [...] and abscess of unspecified site [L03*01/29/2007 12/15/2018 [place] NOS EPISODE CARE UNSPEC [I21.9] 02/03/2007 Hematuria [...] [facility] on 06/05/21[facility]08-31-2021 NoteHNO ID: [id number] Author: Mary Casillas MA Service: ? Author Type: Architectural Drafting Instructor Type: Progress Notes Filed: 03/27/2021 1:05 PM [...] future healthcare decisions with a power of ip technology transactions attorney, living will, or advance directives? Referrals: N/A Message Sent to Practice: NO Navigation Signature: Mary Casillas MA March 27, 2021 1:01 [facility]08-31-2021 NotePatient Outreach (AMBCMG) MARLO ADAMSON ([id number]) 1960 M Date Time Provider Department 03/27/21 [...] future healthcare decisions with a power of ip technology transactions attorney, living will, or advance directives? Referrals: [...] and abscess of unspecified site [L03*01/29/2007 12/15/2018 [place] NOS EPISODE CARE UNSPEC [I21.9] 02/03/2007 Hematuria [...] 15-29*06/17/2016 Encounter Status:Closed by MARY CASILLAS on 03/27/21[facility]07-06-2021 NoteHNO ID: [id number] Author: Mariah Johnson Ma Service: ? Author Type: ? Type: Progress Notes Filed: 01/30/2021 3:08 PM Note Text: POPULATION HEALTH NAVIGATION OUTREACH Action/FYI Left message for patient to call back regarding scheduling/care gaps. Letter Sent. Letter mailed 01/30/21 - Navigation Signature: Mariah Johnson Ma January 30, 2021 2:31 [facility]06-29-2021 NotePatient Outreach (NETNAV) MARLO ADAMSON ([id number]) 1960 M Date Time Provider Department 01/23/21 [...] future healthcare decisions with a power of ip technology transactions attorney, living will, or advance directives? No. [...] and abscess of unspecified site [L03*01/29/2007 12/15/2018 [place] NOS EPISODE CARE UNSPEC [I21.9] 02/03/2007 Hematuria [...] Encounter Status:Closed by MARIAH JOHNSON MA on 01/30/21[facility]06-29-2021 NoteHNO ID: [id number] Author: Mariah Johnson Ma Service: ? Author [...] future healthcare decisions with a power of ip technology transactions attorney, living will, or advance directives? No. Are you interested in a follow-up phone call or visit with a doctor for more information about planning for future health care decisions? No Referrals: N/A Message Sent to Practice: NO Navigation Signature: Mariah Elizabeth Justice January 23, 2021 10:36 [facility]03-24-2021 NoteHNO ID: [id number] Author: Radha Casillas [facility] Service: ? Author Type: ? Type: Progress Notes Filed: 10/18/2020 4:45 PM Note Text: Contacted patient he declined, mailed colonoscopy letter. -Radha Casillas [facility]03-23-2021 NoteHNO ID: [id number] Author: Dave Viera (Rn) NISHA Martin Service: ? Author Type: Registered Nurse Type: Progress Notes Filed: 10/18/2020 4:45 PM Note Text: Pt overdue for screening colonoscopy. Pt needs office visit prior due to medical history. Please call pt and schedule with CONTROLLER REPAIRER AND TESTER or PA. Dave Martin, [facility] NotePatient Outreach (FAMPWS) MARLO ADAMSON ([id number]) 1960 M Date Time Provider Department 10/17/20 DAVE MARTIN (NISHA)CHUCK During your visit today, we recorded the following information about you: Dave Martin RN, RN 10/18/2020 4:45 PM Signed Pt overdue for screening colonoscopy. Pt needs office visit prior due to medical history. Please call pt and schedule with CONTROLLER REPAIRER AND TESTER or PA. NISHA [place] Pss 10/18/2020 4:45 [...] and abscess of unspecified site [L03*01/29/2007 12/15/2018 [place] NOS EPISO[place] CARE UNSPEC [I21.9] 02/03/2007 Hematuria [...] 15-29*06/17/2016 Encounter Status:Closed by RADHA RENTERIA on 10/18/20[facility]12-08-2020 History of Present illness Narrative* Fransisca [...] 04, 2020 5:39 PM [facility] Consult note Author Joseph Hu [facility] Note Date/Time December 22, 2024 8:43a [facility] Medical Records Department [address] [place] [address] Anesthesia Postop Eval I 12/22/2442 MR#: [id number] Acct: [id number] Name: MARLO ADAMSON Rep #:[id number] : 1960 64 From: Joseph Hu PCP: Dr. Marlo Pollard, DO Status:REG SDC Y Race: C Location: [place] [address] Anesthesia: Postop Eval I Current Vital Signs [...] Joseph Roy Signature: Date CC: ~ Signed [facility] Work Phone: Consult note Author Rosy Daley [facility] Note Date/Time January 21, 2025 2:30 pm [facility] Medical Records Department [address] [place] [address] Anesthesia Postop Eval I 01/21/25 1429 MR#: [id number] Acct: [id number] Name: MARLO ADAMSON Rep #:[id number] : 1960 64 From: Rosy Garcia PCP: Dr. Marlo Pollard, DO Status:REG [facility] Y Race: C Location: [place] [address] Anesthesia: Postop Eval I Current Vital Signs [...] Rosy Larkinigner Signature: Date CC: ~ Signed [facility] Work Phone: Consult note Author Greg Cortes [facility] Note Date/Time January 30, 2025 5:25a m [facility] Medical Records Department [address] [place] [address] Pre-Anesthesia Evaluation 01/30/25 0524 MR#: [id number] Acct: [id number] Name: MARLO ADAMSON Rep #:[id number] : 1960 64 From: Greg Cortes MD PCP: Dr. Marlo Pollard, DO Status:REG SDC Y Race: C Location: [place] [address] ASA Classification* ASA Classification ASA Classification: 3 [...] bleeding hemmroid Anesthesia History Anesthesia History - driller operator: Anesthesia History - driller operator Hx Hospitalization Yes: 11-19 infection 01/07/25 09:36 [...] take am of surgery PONV PONV - driller operator: PONV - driller operator Female HX of Motion Sickness HX of N/V After Surgery Non-Smoker Duration of Surgery greater than 60 minutes Number of Risk Factors PONV Score Height & Weight Height & Weight: Anesthesia: Height & Weight Height 5 ft 10 in 01/30/25 03:30 Weight: 74 kg 01/30/25 03:30 Body Mass Index (BMI) 23.3 01/30/25 03:30 Respiratory Assessment Respiratory Assessment - driller operator: Respiratory Tract Infection Hx - driller operator Hx Respiratory Tract Infection No 01/07/25 09:36 STOP Sleep Apnea STOP Sleep Apnea - driller operator: STOP Sleep Apnea - driller operator Hx Hypertension Yes 01/30/25 03:30 Hx Sleep [...] Tobacco Use History Tobacco Use History - driller operator: Tobacco Use History - driller operator Tobacco Use Smoking Status Current every day smoker 01/30/25 02:19 Hx Tobacco Use Yes 01/07/25 09:36 Years Smoking Packs Smoked per Day Smoking Cessation Date was within the last 15 years Hx Smoking Cessation Date Hx Smoking Cessation No 01/30/25 02:19 Counseling Hematologic Medial History Hematologic Hx - driller operator: 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 Hx of Blood Transfusion Hx of Transfusion in last 3 Months Date of Last Transfusion (if within last 3 months) Ever experience any problems with transfusion(s)? Specify any problems Hx of Preganancy in last 3 Months Nurse Filling Out Transfusion & Questions: Date: Time: Patient unable to answer at this time (ie. confused, unrespo /Reproduction History /Reproductive History - driller operator: /Reproductive Hx- driller operator Hx Now Gestational Age (in weeks): EDC: Hx Hx Para Hx Section SAB No 01/07/25 09:36 Active Medications Active Medications: Current Medications Generic Name Dose Route Start Last Admin Trade Name Freq PRN Reason Stop Dose Admin Cefotetan Disodium 2 gm/ 100 mls @ 200 mls/hr 01/30/25 05:14 Sodium Chloride IV 01/30/25 05:43 INTRAOP ONE [facility] Medical History History of hiatal hernia Wears [...] hydrocortisone 2.5 % topical cream 1 applic ME QD-BID PRN hemorrhoids 10/13/24 01/20/25 Rx with [...] MD Cosigner Signature: Date CC: ~ Signed [facility] Work Phone: Discharge summary Author Jimy Jarquin [facility] Note Date/Time October 31, 2024 3:46 am [facility] Medical Records Department [facility] [place] [address] Emergency Department Summary 10/31/24 MR#: [id number] Acct: [id number] Name: MARLO ADAMSON Rep #:[id number] : 1960 64 From: Jimy Jarquin MD [...] for this and has no other complaints. [facility] Medical History Wears dentures Alcohol use Marijuana [...] hydrocortisone 2.5 % topical cream 1 applic ME QD-BID PRN hemorrhoids 10/13/24 Unknown Rx with [...] 85.8 H Lymph % (Auto) 5.3 L [place] % (Auto) 7.1 Eos % (Auto) 0.1 [...] pleural effusion. Mild elevation right Reading Location: [facility] Management Discussion w/another healthcare provider: Hospitalist [...] % cream with perineal applicator 1 applic ME QD-BID PRN (Reason: hemorrhoids) Qty: 30 0RF [...] DO [Primary Care Provider] - Print Language: Cook Islander Disposition Disposition: Acute Care Hospital [facility] What to do if you have Problems For any increased pain, shortness of breath, bleeding, nausea or vomiting, chestpain, or any unexpected problems, contact your Primary Care Provider. Call [facility] ([phone]) or report to the closest Emergency Room. Call 911 if necessary. 10/31/24 0346 <Electronically signed by Jimy Jarquin MD> Cosigner Signature (if applicable): CC: Dr. Marlo Pollard DO ~ Signed [facility] Work Phone: Discharge summary Author Herson Victoria [facility] Note Date/Time January 30, 2025 4:51a m [facility] Medical Records Department [address] [place] [address] Emergency Department Summary 01/30/25 MR#: [id number] Acct: [id number] Name: JUAN DIEGOMARLO Rodrigo Rep #:[id number] : 1960 64 From: Herson Wallace PCP: Dr. Marlo Pollard DO Status:[facility] Location: [address] History of Present Illness Chief Complaint: GI Bleed [facility] Medical History (Updated 01/30/25 @ 04:15 by [...] hydrocortisone 2.5 % topical cream 1 applic ME QD-BID PRN hemorrhoids 10/13/24 01/20/25 Rx with [...] history of ESRD, hyperlipidemia, CAD status post [place] cardiac catheterization and CABG, on aspirin but [...] reviewed, Vital signs reviewed Constitutional: please see [facility] HENT: MMM Eyes: Pupils equal round [...] palpable thrill, no overlying erythema Rectal: Performed under presser in room and verbal consent the patient showed findings as below Neuro: Intact, no focal deficits Skin: No pallor MEDICAL DECISION MAKING: Chief Complaint: please see [facility] External records reviewed: Underwent hemorrhoidectomy and excision of left gluteal sinus tract on 01/21/2025 Factors affecting care: As per [facility] Social determinants of health: none History obtained from others: EMS, general surgery on-call (Dr. Nj) Consults: Dr. Nj [facility] Narrative: The patient was initially hemodynamically stable, afebrile and nontoxic- appearing. Exam with a large amount of blood noted on sheets as well as underwear. Large clot noted initially approximately 6 x 6 cm. Rectal exam performed with under presser and verbal consent of the patient showed [...] to OR This note was generated with Tutor Assignment dictation software. It may contain incorrectwords, spelling, [...] 76.0 H Lymph % (Auto) 12.0 L [place] % (Auto) 8.5 Eos % (Auto) 2.6 [...] Rectal bleeding Disposition Disposition: Acute Care Hospital [facility] What to do if you have Problems For any increased pain, shortness of breath, bleeding, nausea or vomiting, chestpain, or any unexpected problems, contact your Primary Care Provider. Call [facility] ([phone]) or report to the closest Emergency Room. Call 911 if necessary. 01/30/25 0451 <Electronically signed by Herson Victoria DO> Cosigner Signature (if applicable): CC: Dr. Marlo Pollard DO ~ Signed [facility] Work Phone: Evaluation note* Diagnosis Onset Date Resolution Status Chronic renal failure, stage 4 (severe) chronic [facility] Work Phone: Evaluation noteNo assessment information available [facility] Work Phone: Evaluation note* Diagnosis Suspected 2019 novel coronavirus infection documented [facility] Author Elidia Cunningham [facility] Note Date/Time October 31, 2024 4:10 am [facility] Medical Records Department [address] [place] [address] H&P Exam - Hospitalist 10/31/24 0347 MR#: [id number] Acct: [id number] Name: JUAN DIEGOMARLO Rodrigo Rep #:[id number] : 1960 64 From: Elidia Cunningham MD PCP: Dr. Marlo Pollard DO Status:ADM IN Location: [facility] [id number] HPI - General General Date of Admission: 10/31/24 Date of Service: 10/31/24 Chief Complaint: Cough, congestion, dyspnea, recent outpatient abx. HPI Narrative The patient is a 64-year-old male with past medical history M w/ PMHx: PCKD w/ ESRD (T-F), CAD s/p PCI, HTN, HLD, GERD, Tobacco use, Hx VTE (DVT) who presents to the [facility] ED on 10/31/24 with congestion, [...] the ED patient ministered IV Zosyn therapy. [facility] Medical History (Updated 10/31/24 @ 04:07 by [...] hydrocortisone 2.5 % topical cream 1 applic ME QD-BID PRN hemorrhoids 10/13/24 Unknown Rx with [...] (Auto) 85.8 H, Lymph % (Auto) 5.3 L,[place] % (Auto) 7.1, Eos % (Auto) 0.1, [...] use, Hx VTE (DVT) who presents to [facility] ED on 10/31/24 with congestion, fatigue, [...] Patient does not have healthcare power of ip technology transactions attorney or living will in place but he notes that he would want his ex- Nabila Triplett to be his medical decision-maker if necessary. Discussed CODE status at length including difference between FULL code, DNR-CCA and DNR-CC status. Following discussions about the differences in these status, requested Full Code status. Advanced CarePlanning Face to Face Time: 16 minutes. Charges/Coding Visit Charges Inpatient E&M: 09503 Init Hosp L3 Procedures Hospitalists Procedures: 99848 Advncd Care Plan 30 Min 10/31/24 0410 <Electronically signed by Elidia Cunningham MD> Cosigner Signature (if applicable): CC: Dr. Elidia Cunningham MD; Dr. Marlo Pollard, ~ Signed [facility] Work Phone: History and physical note Author Fili Nj [facility] Note Date/Time January 30, 2025 4:51a m [facility] Medical Records Department [address] [place] [address] History & Physical Exam 01/30/25 0439 MR#: [id number] Acct: [id number] Name: MARLO ADAMSON Rep #:[id number] : 1960 64 From: Fili Dixon PCP: Dr. Marlo Pollard DO Status:[facility] Location: [place] [address] HPI - General General Date of Service: 01/30/25 HPI Narrative MARLO ADAMSON, is a 64 M who presents to [facility] on direction from me after calling [...] home and administers heparin during each session. [facility] Medical History (Updated 01/30/25 @ 04:15 by [...] hydrocortisone 2.5 % topical cream 1 applic ME QD-BID PRN hemorrhoids 10/13/24 01/20/25 Rx with [...] 76.0 H, Lymph % (Auto) 12.0 L, [place] % (Auto) 8.5, Eos % (Auto) 2.6, [...] Nj MD General Surgery Endocrine Surgery Pager: [facility] [address] [place] [address], [facility], [address] [place] [address] Office: [phone] (2) S/P hemorrhoidectomy: Charges/Coding Visit Charges Inpatient E&M: 12757 Init Hosp L2 01/30/25 4618 <Electronically signed by Fili Nj MD> Cosigner Signature (if applicable): CC: Dr. Marlo Pollard, DO; Dr. Fili Nj MD~ Signed [facility] Work Phone: Progress note Author Ying Shirley [facility] Note Date/Time November 02, 2024 12:1 9pm [facility] Medical Records Department [address] [place] [address] Progress Note - Nephrology 11/02/24 1216 MR#: [id number] Acct: [id number] Name: MARLO ADAMSON Rep #:[id number] : 1960 64 From: Ying alfaro MD PCP: Dr. Marlo Pollard DO Status:ADM IN Location: [place] [address] Subjective Subjective no new complaints Objective Data [...] 10/31/24 17:11 RMA (Rec: 10/31/24 17:11 RMA [id number]) Nutrition Malnutrition Evidence of Yes Malnutrition Exists [...] 73.4 H, Lymph % (Auto) 12.6 L, [place] % (Auto) 9.8, Eos % (Auto) 1.7, [...] 15 min or so. dw hospitalist 11/02/24 1210 <Electronically signed by Ying Shirley MD> Cosigner Signature (if applicable): CC: ~ Signed [facility] Work Phone: Reason for referral (narrative)No reason for referral information availableWCincinnati Shrin[facility] Work Phone: Summary Purpose Family History Relationship Condition Age at Onset Recorded Date/T hilary father Malignant neoplasm Unknown Relationship Condition Age at Onset Recorded Date/T hilary father Malignant neoplasm Unknown brother Cardiac disease Unknown sister Mass of brain Unknown mother Cerebral aneurysm Unknown Advance Directives Advance Directive Response Recorded Date/ Time Living Will Yes June 06, 021 2:53pm Power of Vending Mechanic Yes June 06, 2021 2:53pm Advance Directive Response Recorded Date/ Time Living Will Yes June 06, 021 1:53pm Power of Vending Mechanic Yes June 06, 2021 1:53pm Advance Directive Response Recorded Date/ Time Living Will No October 31, 2024 2:04am Do you have a Healthcare Power of Vending Mechanic? No October 31, 2024 2:04am Advance Directive Response Recorded Date/ Time Living Will No October 31, 2024 4:07am Do you have a Healthcare Power of Vending Mechanic? No October 31, 2024 4:07am Advance Directive Response Recorded Date/ Time Living Will No October 31, 2024 4:07am Do you have a Healthcare Power of Vending Mechanic? No October 31, 2024 4:07am Do you have a Healthcare Power of Vending Mechanic? Yes December 21, 2024 9:34am Advance Directive Response Recorded Date/ Time Living Will No October 31, 2024 4:07am Do you have a Healthcare Power of Vending Mechanic? No October 31, 2024 4:07am Do you have a Healthcare Power of Vending Mechanic? No January 07, 2025 9:36am Do you have a Healthcare Power of Vending Mechanic? Yes December 21, 2024 9:34am Advance Directive Response Recorded Date/ Time Living Will No October 31, 2024 4:07am Do you have a Healthcare Power of Vending Mechanic? No October 31, 2024 4:07am Do you have a Healthcare Power of Vending Mechanic? No January 07, 2025 9:36am Do you have a Healthcare Power of Vending Mechanic? No January 30, 2025 2:19am Do you have a Healthcare Power of Vending Mechanic? Yes December 21, 2024 9:34am Chief [...] 2024 1:5 2pm Hemorrhoids, internal, with bleeding [facility] 2024 1:52pm Screening for colon cancer October [...] 2024 1:5 2pm Hemorrhoids, internal, with bleeding [facility] 2024 1:52pm Screening for colon cancer October 13, 2 025 1:52pm ESRD (end stage renal disease) October 3:49am Failure of outpatient treatment October 3:49am Hypoxemia October 31, 2024 3:49 am Pneumonia October 31, 2024 3:49 am Reason for Visit Admit Date Anal fistula October 13, 2024 1:5 2pm Hemorrhoids, internal, with bleeding [facility] 2024 1:52pm Screening for colon cancer October [...] 2024 1:5 2pm Hemorrhoids, internal, with bleeding [facility] 2024 1:52pm Screening for colon cancer October [...] section and content) DATE CREATED AUTHOR 09/13/2021 [facility] DATE CREATED AUTHOR AUTHOR'S ORGANIZ ATION 01/24/2025 [facility] Goals (unrecognized section and content) Goals may [...] MD Attending Provider, Referri ng Provider Active Can Striper Relationship Specialty Start Date End Date To [...] Active Start: January 30, 2025 Dr. Fili jN MD Referring Provider Active Start: January 30, [...] or prosecute any alcohol or drug abuse patient.[facility] FOR RECORDS PERTAINING TO PATIENTS WHO [...] BE BASED ON THE PRIMARY CLINICAL RECORDS. [facility] [employer] provides no warranty or guarantee of the accuracy or completeness of information in this document.
--- NOTE | 2025-01-30 09:00 | PCM.POST.ANE ---
Anesthesia: Postop Eval I Current Vital Signs Temperature: 96.9 F Pulse Rate: 98 Blood Pressure: 105/60 Respiratory Rate: 16 Pulse Ox: 96 Oxygen Delivery Method: Room Air Assessment Airway patent: Yes Spontaneous unlabored respirations: Yes Mental status: Awake and Calm nausea: No Vomiting: No Anesthesia Complication: No Fluid Hydration Crystalloid volume administer (ml): 800 Total IV fluid infused: 800 Progress Note Anesthesia document: Postop Eval 1 completed: Yes
[2025-01-30 09:28] LABS: Hematocrit 35.3 % (40-54); Hemoglobin 11.9 g/dL (13.0-16.5); Immature Granulocytes Count 0.090 X10^3/uL (0.0-0.0); Mean Corp Hgb Conc 33.7 g/dL (32-36); Mean Corpuscular Volume 93.4 fL (80-94); Mean Platelet Vol. 9.2 fl (6.2-12.0); NRBC Flagged by Analyzer 0 % (0-5); Platelet Count 176 K/mm3 (150-450); RBC Distribution Width CV 14.3 % (11.6-14.6); RBC Distribution Width SD 49.0 fl (35.1-43.9); Red Blood Count 3.78 M/mm3 (4.6-6.2); White Blood Count 12.5 K/mm3 (4.4-11.0)
[2025-01-30 10:07] LABS: Anion Gap 14 (5-15); BUN 43 mg/dL (4-19); BUN/Creat Ratio 5.3 RATIO (10-20); Calcium,Total 8.8 mg/dL (7.6-11.0); Carbon Dioxide 22.5 mmol/L (21.0-32.0); Chloride 97 mmol/L (98-108); Estimated Creatinine Clearance 9.61 ml/min (50-250); Glucose 133 mg/dL (70-99); Potassium 5.0 mmol/L (3.3-5.1)
[2025-01-30] MEDS: Folic Acid/Vitamin B Comp W-C 1 Capsule 1 CAP PO (10:49)
[2025-01-30] MEDS: Cholecalciferol (Vit D3) 125 MCG CAPSULE (5,000 UNITS) PO (10:49)
[2025-01-30] MEDS: Polyethylene Glycol 3350 17 GM PACKET PO (10:50)
[2025-01-31] VITALS (16 sets, daily range): BP systolic 99–126; BP diastolic 39–70; PULSE 58–98; RESP 14–18; TEMP 36.1–37; O2SAT 93–100; BMI 23.3; BMI 22.7
[2025-01-31] MEDS: 0.9% Normal Saline (1000mL) 1,000 ML 100 ML IV ×2 (03:55→14:15)
[2025-01-31 05:50] LABS: Hematocrit 28.2 % (40-54); Hemoglobin 9.3 g/dL (13.0-16.5); Immature Granulocytes Count 0.040 X10^3/uL (0.0-0.0); Mean Corp Hgb Conc 33.0 g/dL (32-36); Mean Corpuscular Volume 95.3 fL (80-94); Mean Platelet Vol. 9.4 fl (6.2-12.0); NRBC Flagged by Analyzer 0 % (0-5); Platelet Count 146 K/mm3 (150-450); RBC Distribution Width CV 14.2 % (11.6-14.6); RBC Distribution Width SD 49.1 fl (35.1-43.9); Red Blood Count 2.96 M/mm3 (4.6-6.2); White Blood Count 7.5 K/mm3 (4.4-11.0)
[2025-01-31 06:36] LABS: Magnesium 2.1 mg/dL (1.5-2.2)
[2025-01-31 07:16] LABS: Anion Gap 11 (5-15); BUN 47 mg/dL (4-19); BUN/Creat Ratio 5.5 RATIO (10-20); Calcium,Total 8.3 mg/dL (7.6-11.0); Carbon Dioxide 23.0 mmol/L (21.0-32.0); Chloride 98 mmol/L (98-108); Estimated Creatinine Clearance 9.02 ml/min (50-250); Glucose 97 mg/dL (70-99); Potassium 4.5 mmol/L (3.3-5.1)
--- NOTE | 2025-01-31 07:16 | PN.HOSP_ITS ---
Reason for Visit Reason for Visit: Diagnoses Essential (primary) hypertension (01/30/25) Atherosclerotic heart disease of [place] coronary artery without angina pectoris (01/30/25) Constipation, unspecified (01/30/25) Hemorrhage of anus and rectum (01/30/25) Other hemorrhoids (01/30/25) End stage renal disease (01/30/25) Polycystic kidney, unspecified (01/30/25) Adverse effect of unspecified drugs, medicaments and biological substances, initial encounter (01/30/25) Tobacco use (01/30/25) Personal history of colon polyps, unspecified (01/30/25) Personal history of other diseases of the digestive system (01/30/25) Other specified postprocedural states (01/30/25) Dependence on renal dialysis (01/30/25) Subjective Subjective Patient with no acute events overnight per self and per nursing report. He does report 2 bowel movements through the evening and did require dressing/packing changes to the rectum. He does report no bowel movement since and feels as though he needs to go and has been in the restroom several time but only passed flatus. He is very insistent that he needs an additional bowel movement before he discharges to home. He denies any other complaint at this been tolerating a diet. He denies any reoccurrence of bright red blood/rectal bleeding. Patient denies fevers, chills, nausea, emesis, abdominal pain, chest pain or dyspnea. Objective Data Objective Data Vital Signs: Vital Signs Temp Pulse Resp BP Pulse Ox O2 Del Method 98.5 F 72 18 114/70 93 Room Air 01/31/25 02:50 01/31/25 02:50 01/31/25 02:50 01/31/25 02:50 01/31/25 02:50 01/31/25 02:50 Oxygen Delivery Method Room Air Weight: 163 lb 2.273 oz Body Mass Index (BMI) 23.3 Intake & Output: Intake and Output for Last 24 Hours 01/29/25 01/30/25 01/31/25 23:59 23:59 23:59 Intake Total 2150 / 2150 1288.33 / 1288.33 Output Total 600 / 600 300 / 300 Balance 1550 / 1550 988.33 / 988.33 Lab / Micro Data 01/31/25 05:33 01/31/25 05:33 Labs: Laboratory Results - last 24 hr 01/30/25 02:17: Iron 50 L, TIBC 256, Iron Saturation 20.0, Unsaturated IBC 206 L 01/30/25 09:21: WBC 12.5 H, RBC 3.78 L, Hgb 11.9 L, Hct 35.3 L, MCV 93.4, MCH 31.5, MCHC 33.7, RDW Std Deviation 49.0 H, RDW Coeff of Fito 14.3, Plt Count 176, MPV 9.2, Immature Gran % (Auto) 0.700, Neut % (Auto) 87.7 H, Lymph % (Auto) 5.0 L, [place] % (Auto) 6.0, Eos % (Auto) 0.2, Baso % (Auto) 0.4, Absolute Neuts (auto) 11.0 H, Absolute Lymphs (auto) 0.63 L, Nucleated RBC % 0, Sodium 133, Potassium 5.0, Chloride 97 L, Carbon Dioxide 22.5, Anion Gap 14, BUN 43 H, Creatinine 8.02 H*, Estim Creat Clear Calc 9.61 L*, Est GFR (MDRD) Non-Af 7 L, BUN/Creatinine Ratio 5.3 L, Glucose 133 H, Calcium 8.8 01/31/25 05:33: WBC 7.5, RBC 2.96 L, Hgb 9.3 L, Hct 28.2 L, MCV 95.3 H, MCH 31.4, MCHC 33.0, RDW Std Deviation 49.1 H, RDW Coeff of Fito 14.2, Plt Count 146 L, MPV 9.4, Immature Gran % (Auto) 0.500, Neut % (Auto) 72.7 H, Lymph % (Auto) 16.5 L, [place] % (Auto) 7.0, Eos % (Auto) 2.8, Baso % (Auto) 0.5, Absolute Neuts (auto) 5.5, Absolute Lymphs (auto) 1.24, Nucleated RBC % 0, Sodium 132 L, Potassium 4.5, Chloride 98, Carbon Dioxide 23.0, Anion Gap 11, BUN 47 H, C reatinine 8.54 H*, Estim Creat Clear Calc 9.02 L*, Est GFR (MDRD) Non-Af 6 L, B UN/Creatinine Ratio 5.5 L, Glucose 97, Calcium 8.3, Phosphorus 4.2, Magnesium 2.1 Physical Exam Narrative Physical Examination: General: Awake, alert, oriented x 3 and cooperative, seated upright in the MS bed, no acute complaints, does report that he feels as though he needs he has a bowel movement and feels mildly bloated with ongoing flatus. Skin: Normal color, normal turgor, no icterus, no cyanosis except occasional stage ecchymoses, abrasion. HEENT: AT/NC, EOMI, PERRLA, MMM. Lungs: CTA bilaterally, moderate effort, mild decrease BL bases, no rales, ronchi or wheezing. Heart: Regular rate and rhythm; no gallop, rub audible. Abdomen: Soft, NTTP, mildly tympanitic, mildly distended, hyperactive BS. Extremities: No cyanosis, clubbing, or edema. Neurological: Patient awake, alert, oriented as noted, cognitive function intact; pupils equally reactive to light and accommodation, cranial nerves grossly normal, moving all 4 extremities, no focal deficits, strength improved, mildly globally creased. Psychiatric: Affect appears fatigued otherwise normal, no acute evidence of depressive or anxiety feelings. Assessment & Plan Assessment/Plan (1) Rectal bleeding: PLAN: Plan The patient is a 64-year-old male with past medical history M w/ PMHx: PCKD w/ ESRD, CAD s/p PCI, HTN, HLD, GERD, Tobacco use, Hx VTE (DVT) who presents to the [facility] ED on 01/30/25 with history of persistent severe rectal bleeding status post recent hemorrhoidectomy. #1. Acute severe persistent rectal bleeding status post hemorrhoidectomy with associated acute blood loss anemia: OR 01/30/[address] Nj with an anorectal exam under anesthesia with suture ligation for hemostasis, admitted to medical surgical floor given stable vital signs, admission hemoglobin 9.9, MCV 93.4, notable bright red blood per rectum until operative intervention, 01/31/2025 and hemoglobin 9.3, MCV 95.3, currently vital signs stable, discussed with general surgeon and agreed with continued bowel regimen, will continue to trend CBC however remained stable patient will be clinically stable from a medical standpoint for discharge. Did discuss with general surgery that they would need to comment on a potential reinitiation aspirin timeline given underlying coronary disease. #2. PCKD with ESRD: Patient with HD at home 4 days weekly, following with Dr. Shirley, nephrology consulted and pending evaluation. #3. CAD: Status post PCI and CABG x 4, reinitiate aspirin therapy once cleared for surgery given acute presentation #1, continued on statin, previously been on metoprolol but not currently listed under medications, clarified to be certain, not on DANIA inhibitor/ARB. #4. Hypertension: Previously on metoprolol, not currently on any regimen per most recently noted list, possibly BP related, clarified to be certain. #5. Hyperlipidemia: Continue patient on statin therapy. #6. GERD: Maintained on PPI IV per surgery discretion. #7. History of VTE: Chart history with previous DVT, SCDs given #1 recommended. #8. Tobacco Abuse: Encouraged cessation, inpatient consultation per RT, NR if desired. #9. DVT prophylaxis: SCDs given #1 recommended. #10. CODE status: Patient does not have healthcare power of civil rights attorney or living will in place but he notes that he would want his ex- Nabila Triplett to be his medical decision-maker if necessary. Full Code status. Charges/Coding Visit Charges Inpatient E&M: 88056 Subs Hosp L2
[2025-01-31] MEDS: PureFlow B 2K Dialysis Soln 1 BAG 6 BAG PF (08:31)
[2025-01-31] MEDS: 0.9% Normal Saline 1,000 ML IV.SOLN. 1000 ML OPERA.SITE (08:31)
[2025-01-31] MEDS: Lidocaine/Prilocaine HCl 5 GM Tube TOPICAL (08:32)
--- NOTE | 2025-01-31 08:50 | PCM.PN.BLA ---
Progress Note Patient seen and examined during AM rounds. He is found resting in bed receiving dialysis. He reports an uneventful overnight course and states that he did have a small bowel movement passing the packing but did not notice any blood. He expresses concern that he would like to see more of the bowel movement before he is granted discharge to home. Physical Exam Const alert, oriented x3 and no apparent distress Resp normal respiratory effort GI GI Narrative: Abdomen is soft, nondistended and nontender to palpation. I am unable to perform an anorectal exam given patient's ongoing hemodialysis status. Assessment & Plan Assessment/Plan (1) S/P hemorrhoidectomy: (2) Rectal bleeding: PLAN: Plan Patient is 64-year-old male postoperative day 1 from emergency exam under anesthesia with ligation of bleeding vessels from prior hemorrhoidectomy. He has remained clinically stable and reports a small bowel movement this morning but expresses concern that there is more to pass and wants to do so in the hospital to be sure there is not a bleeding complication. Patient's hemoglobin has downtrended from his intake and even his subsequent check to 9.3 today. Still suspect this is representing a delayed fall in hemoglobin rather than ongoing losses as patient has had no further evidence of bleeding. Agree with keeping patient until he is able to have a nonbloody bowel movement and showed stability of his blood counts. Will continued scheduled MiraLAX. Appreciate hospitalist service for continuing to manage other comorbidities. Continue inpatient stay with possible discharge tomorrow. Dr. Mckoy to assume patient's care tomorrow. Visit Charges Inpatient E&M: 15700 Subs Hosp L2
--- NOTE | 2025-01-31 11:25 | PCM.POSTANE2 ---
Anesthesia Postop Eval I Sum Postop Eval Completion status Anesthesia document: Postop Eval 1 completed: Yes Anesthesia Postop Eval I Summary Anesthesia Postop Eval I Summary: Anesthesia Postop Eval I: Assessment Summary Airway patent Yes 01/31/25 11:21 Spontaneous unlabored Yes 01/31/25 11:21 respirations Mental status Awake,Calm 01/31/25 11:21 nausea No 01/31/25 11:21 Vomiting No 01/31/25 11:21 Anesthesia Postop Eval I: Fluid Summary Crystalloid volume administer 800 01/31/25 11:21 (ml) Colloids volume administered ( ml) Blood Product volume administered (ml) Total IV fluid infused 800 01/31/25 11:21 Anesthesia Postop Eval I: Summary Notes Anesthesia Complication No 01/31/25 11:21 Anesthesia Complication Comment: Post-operative progress note Anesthesia: Postop Eval II Evaluation Mental status: Awake Pain Level: 0 nausea: No Vomiting: No
[2025-01-31] MEDS: Pantoprazole Sodium 40 MG in 0.9% Normal Saline (100mL MB+) 100 ML 330 MG IV ×2 (12:48→21:19)
[2025-01-31] MEDS: Polyethylene Glycol 3350 17 GM PACKET PO (12:49)
[2025-01-31] MEDS: Cholecalciferol (Vit D3) 125 MCG CAPSULE (5,000 UNITS) PO (12:49)
[2025-01-31] MEDS: Folic Acid/Vitamin B Comp W-C 1 Capsule 1 CAP PO (12:50)
--- NOTE | 2025-01-31 15:28 | CASEMGMT ---
Met with patient to complete NICOLAS form. NICOLAS form and its content were verbally explained and patient's questions were answered to the best of my ability.? Patient voiced understanding and signed NICOLAS form.? Patient provided a copy of signed NICOLAS form and original placed in patient's chart.? Patient had no further questions. Margot Vanegas, Discharge Planning Ass
--- NOTE | 2025-01-31 16:21 | PCM.CONS.R ---
Assessment & Plan Assessment/Plan (1) ESRD (end stage renal disease) on dialysis: PLAN: On hemodialysis. Dialysis today. Usually he does home hemodialysis. Went well. Anemia. Due to bleeding. Last known hemoglobin from outpatient dialysis unit is close to 14. Today around 9.5. No more active bleeding. S/p surgical exploration in OR. Surgery on consult. HPI Consult Data Date of Consult: 01/31/25 HPI Narrative Reason for Consultation: ESRD HPI Narrative: MARLO ADAMSON, is a 64 M who presents to the hospital with bleeding. Nephrology on consultation in view of ESRD. Known history of ESRD, due to polycystic kidney disease. He is in the process of getting evaluated for kidney transplant. He has a longstanding perianal area cyst which requires surgery. Also has hemorrhoids with occasional bleeding. As part of surgical consultation, he had ligation of hemorrhoids, unfortunately presented with bleeding. Status post surgical exploration with surgery, bleeding seem to have stopped. Dialysis today as per orders. Currently denies any complaints. His hemoglobin is significantly lower than his usual baseline. His usual baseline hemoglobin is normal. [facility] Medical History (Updated 01/30/25 @ 06:[address] Rainer Moore, DO) CAD (coronary artery disease) History of hiatal hernia Wears glasses History of steroid therapy Arthritis Low iron Back pain Syncope Difficulty swallowing Heartburn Smoker Shortness of breath on exertion Leg cramps History of pain when walking History of edema MRSA (methicillin resistant staph aureus) culture positive ESRD (end stage renal disease) ESRD on hemodialysis (~10/31/24) Anal fistula Hemorrhoids, internal, with bleeding Wears dentures Marijuana use Polycystic renal disease DVT (deep venous thrombosis) High cholesterol History of echocardiogram Cardiology follow-up encounter Hemorrhoids, internal Myocardial infarction HTN (hypertension) Osteoarthritis Home Medications ?Medication ?Instructions ?Recorded ?Last Taken ?Type aspirin 81 mg tablet,delayed 81 mg PO DAILY 05/29/21 01/21/25 History release Held on 01/30/25. Instructions: surgery cholecalciferol (vitamin D3) 125 125 mcg PO DAILY 05/29/21 01/20/25 History mcg (5,000 unit) capsule metoprolol tartrate 25 mg tablet 25 mg PO BID 05/29/21 01/21/25 History pravastatin 40 mg tablet 40 mg PO QHS 05/29/21 01/20/25 History Hydrocortisone 2.5%/lidocaine 5% #30 ea 10/13/24 Unknown Rx suppository (cmpd) (hydrocortisone 2.5%/lidocaine 5% suppository (compound)) hydrocortisone 2.5 % topical cream 1 applic DE QD-BID PRN hemorrhoids 10/13/24 01/20/25 Rx with perineal applicator #30 grams (Proctozone-HC) oxycodone 10 mg tablet 10 mg PO TID PRN pain 10/13/24 01/21/25 04:00 History vitamin B complex-vitamin C-folic 1 tab PO QDAY 10/13/24 01/20/25 History acid 0.8 mg tablet (Renal-Svetlana) calcitriol 0.25 mcg capsule 0.25 mcg PO DAILY 10/31/24 01/20/25 History lidocaine-prilocaine 2.5 %-2.5 % 1 applic topical DAILY PRN SKIN 10/31/24 01/20/25 History topical cream ondansetron 4 mg disintegrating 4 mg PO Q4H PRN PRN nausea and 12/21/24 01/20/25 History tablet vomiting Allergy/AdvReac Type Severity Reaction Status Date / Time atorvastatin (From Lipitor) AdvReac MUSCLE ACHE Verified 01/30/25 05:15 Family History Father Cancer abdominal tumor--unsure type Brother Heart disease Sister Brain mass Mother Brain aneurysm Surgical History (Updated 01/30/25 @ 06:[address] Rainer Moore DO) S/P hemorrhoidectomy Hx of colonoscopy with polypectomy History of arteriovenostomy for renal dialysis (~05/2021) Hx of left knee surgery History of esophagogastroduodenoscopy (EGD) Hx of cystoscopy History of cardiac catheterization History of coronary artery bypass graft History of heart artery stent Social History household members: none Smoking Status: Current every day smoker tobacco type: cigarettes quit status: considering quitting alcohol intake: former substance use type: does not use ROS ROS Narrative Negative except history Physical Exam Narrative Alert awake oriented x 3 no obvious distress no pallor no icterus no JVD s1s2 no murmurs lungs clear abdomen soft no organomegaly no edema no cyanosis Lab / Micro Data 01/31/25 05:33 07/07/25 05:33 Labs: Laboratory Results - last 24 hr 01/31/25 05:33: WBC 7.5, RBC 2.96 L, Hgb 9.3 L, Hct 28.2 L, MCV 95.3 H, MCH 31.4, MCHC 33.0, RDW Std Deviation 49.1 H, RDW Coeff of Fito 14.2, Plt Count 146 L, MPV 9.4, Immature Gran % (Auto) 0.500, Neut % (Auto) 72.7 H, Lymph % (Auto) 16.5 L, [place] % (Auto) 7.0, Eos % (Auto) 2.8, Baso % (Auto) 0.5, Absolute Neuts (auto) 5.5, Absolute Lymphs (auto) 1.24, Nucleated RBC % 0, Sodium 132 L, Potassium 4.5, Chloride 98, Carbon Dioxide 23.0, Anion Gap 11, BUN 47 H, Creatinine 8.54 H*, Estim Creat Clear Calc 9.02 L*, Est GFR (MDRD) Non-Af 6 L, BUN/Creatinine Ratio 5.5 L, Glucose 97, Calcium 8.3, Phosphorus 4.2, Magnesium 2.1
[2025-02-01] VITALS (18 sets, daily range): BP systolic 115–145; BP diastolic 55–87; PULSE 65–81; RESP 14–18; TEMP 36.4–37.4; O2SAT 95–100; BMI 22.7; BMI 22.1
[2025-02-01] MEDS: 0.9% Normal Saline (1000mL) 1,000 ML 100 ML IV (00:48)
[2025-02-01 06:42] LABS: Hematocrit 23.9 % (40-54); Hemoglobin 8.2 g/dL (13.0-16.5); Immature Granulocytes Count 0.040 X10^3/uL (0.0-0.0); Mean Corp Hgb Conc 34.3 g/dL (32-36); Mean Corpuscular Volume 93.7 fL (80-94); Mean Platelet Vol. 9.5 fl (6.2-12.0); NRBC Flagged by Analyzer 0 % (0-5); Platelet Count 138 K/mm3 (150-450); RBC Distribution Width CV 14.1 % (11.6-14.6); RBC Distribution Width SD 48.0 fl (35.1-43.9); Red Blood Count 2.55 M/mm3 (4.6-6.2); White Blood Count 6.3 K/mm3 (4.4-11.0)
--- NOTE | 2025-02-01 06:56 | PCM.PN.HOSP ---
Reason for Visit Reason for Visit: Diagnoses Essential (primary) hypertension (01/30/25) Atherosclerotic heart disease of [place] coronary artery without angina pectoris (01/30/25) Constipation, unspecified (01/30/25) Hemorrhage of anus and rectum (01/30/25) Other hemorrhoids (01/30/25) End stage renal disease (01/30/25) Polycystic kidney, unspecified (01/30/25) Adverse effect of unspecified drugs, medicaments and biological substances, initial encounter (01/30/25) Tobacco use (01/30/25) Personal history of colon polyps, unspecified (01/30/25) Personal history of other diseases of the digestive system (01/30/25) Other specified postprocedural states (01/30/25) Dependence on renal dialysis (01/30/25) Subjective Subjective Patient with ongoing sensation of need to have a bowel movement but inability overnight with a.m. KUB directed per surgery with noted a moderate amount of fecal material in the colon. Patient denies any recurrent bleeding per rectum. Discussed with staff and patient and plan of care is for enema following completion of dialysis today. Patient does report that he has occasional severe sharp 10 out of 10 pain in the rectal region but this waxes and wanes and is only momentary. Patient denies fevers, chills, nausea, emesis, abdominal pain, chest pain or dyspnea. Objective Data Objective Data Vital Signs: Vital Signs Temp Pulse Resp BP Pulse Ox O2 Del Method 99.4 F H 75 17 136/74 H 98 Room Air 02/01/25 04:13 02/01/25 04:13 02/01/25 04:13 02/01/25 04:13 02/01/25 04:13 02/01/25 04:13 Oxygen Delivery Method Room Air Weight: 158 lb 11.725 oz Body Mass Index (BMI) 22.7 Intake & Output: Intake and Output for Last 24 Hours 01/30/25 01/31/25 02/01/25 23:59 23:59 23:59 Intake Total 2150 / 2150 3138.33 / 3378.33 1300 / 1300 Output Total 600 / 600 3180 / 3480 600 / 600 Balance 1550 / 1550 -41.67 / -101.67 700 / 700 Lab / Micro Data 02/01/25 06:18 02/01/25 06:18 Labs: Laboratory Results - last 24 hr 01/31/25 05:33: Sodium 132 L, Potassium 4.5, Chloride 98, Carbon Dioxide 23.0, Anion Gap 11, BUN 47 H, Creatinine 8.54 H*, Estim Creat Clear Calc 9.02 L*, Est GFR (MDRD) Non-Af 6 L, BUN/Creatinine Ratio 5.5 L, Glucose 97, Calcium 8.3 02/01/25 06:18: WBC 6.3, RBC 2.55 L, Hgb 8.2 L, Hct 23.9 L, MCV 93.7, MCH 32.2 H, MCHC 34.3, RDW Std Deviation 48.0 H, RDW Coeff of Fito 14.1, Plt Count 138 L, MPV 9.5, Immature Gran % (Auto) 0.600, Neut % (Auto) 73.9 H, Lymph % (Auto) 15.8 L, [place] % (Auto) 6.5, Eos % (Auto) 2.7, Baso % (Auto) 0.5, Absolute Neuts (auto) 4.7, Absolute Lymphs (auto) 1.00, Nucleated RBC % 0 Physical Exam Narrative Physical Examination: General: Awake, alert, oriented x 3 and cooperative, seated upright in the MS bed, notes currently feeling well however he does have intermittent very sharp rectal pain but is quick lasting. Skin: Normal color, normal turgor, no icterus, no cyanosis except occasional stage ecchymoses, abrasion. HEENT: AT/NC, EOMI, PERRLA, MMM. Lungs: CTA bilaterally, moderate effort, mild decrease BL bases, no rales, ronchi or wheezing. Heart: Regular rate and rhythm; no gallop, rub audible. Abdomen: Soft, NTTP, still mildly tympanitic and distended, hyperactive BS. Extremities: No cyanosis, clubbing, or edema. Neurological: Patient awake, alert, oriented as noted, cognitive function intact; pupils equally reactive to light and accommodation, cranial nerves grossly normal, moving all 4 extremities, no focal deficits, strength improved, mildly globally decreased. Psychiatric: Affect appears more awake, interactive, no acute evidence of depressive or anxiety feelings. Assessment & Plan Assessment/Plan (1) Rectal bleeding: PLAN: Plan The patient is a 64-year-old male with past medical history M w/ PMHx: PCKD w/ ESRD, CAD s/p PCI, HTN, HLD, GERD, Tobacco use, Hx VTE (DVT) who presents to the [facility] ED on 01/30/25 with history of persistent severe rectal bleeding status post recent hemorrhoidectomy. #1. Acute severe persistent rectal bleeding status post hemorrhoidectomy with associated acute blood loss anemia: OR 01/30/[address] Nj with an anorectal exam under anesthesia with suture ligation for hemostasis, admitted to medical surgical floor given stable vital signs, admission hemoglobin 9.9, MCV 93.4, notable bright red blood per rectum until operative intervention, 01/31/2025 and hemoglobin 9.3, MCV 95.3 with vital signs stable. Continued on bowel regimen. 02/01/25 hemoglobin 8.2, MCV 93.7. Dialyzed 01/31/2025 without issue with stable vital signs. As noted KUB 02/01/2025 with noted decent stool burden with planned enema following dialysis today. If following enema patient with significant bowel movement and improved discomfort medical service amenable for discharge home Patient will need surgery to outline resumption of antiplatelet therapy plan at discharge. May need to have repeat hemoglobin outpatient at follow-up with PCP and then resumption if clinically stable. #2. PCKD with ESRD: Patient with HD at home 4 days weekly, following with Dr. Shirley, dialyzed 01/31/2025 without issue, plan for repeat dialysis today 02/01/2025, nephrology following. #3. CAD: Status post PCI and CABG x 4, reinitiate aspirin therapy once cleared for surgery given acute presentation #1, continued on statin, previously been on metoprolol but not currently listed under medications, clarified to be certain, not on DANIA inhibitor/ARB. As noted above may require follow-up hemoglobin outpatient with PCP and resumption of aspirin therapy if stable at that time but will defer to surgery discretion. #4. Hypertension: Previously on metoprolol, not currently on any regimen per most recently noted list, possibly BP related, clarified to be certain. #5. Hyperlipidemia: Continue patient on statin therapy. #6. GERD: Maintained on PPI IV per surgery discretion. Given oral intake may consider transition to oral version at this time. #7. History of VTE: Chart history with previous DVT, SCDs given #1 recommended. #8. Tobacco Abuse: Encouraged cessation, inpatient consultation per RT, NR if desired. #9. DVT prophylaxis: SCDs given #1 recommended. #10. CODE status: Patient does not have healthcare power of securities attorney or living will in place but he notes that he would want his ex- Nabila Triplett to be his medical decision-maker if necessary. Full Code status. Charges/Coding Visit Charges Inpatient E&M: 44729 Subs Hosp L2
[2025-02-01 07:21] LABS: AST(SGOT) 13 U/L (<=37); Alanine Aminotransfer ALT/SGPT < 5 U/L (<=46); Albumin, Serum 2.9 g/dL (3.4-4.8); Alkaline Phosphatase 50 U/L (40-129); Anion Gap 8 (5-15); BUN 33 mg/dL (4-19); BUN/Creat Ratio 5.3 RATIO (10-20); Calcium,Total 8.5 mg/dL (7.6-11.0); Carbon Dioxide 22.0 mmol/L (21.0-32.0); Chloride 107 mmol/L (98-108); Estimated Creatinine Clearance 12.22 ml/min (50-250); Globulin 1.8 g/dL (2.2-4.2); Glucose 98 mg/dL (70-99); Potassium 4.4 mmol/L (3.3-5.1)
--- NOTE | 2025-02-01 07:46 | PCM.PN.SRG ---
Subjective Subjective Patient evaluated resting comfortably in ed. he notes stool leakage from his rectum that he continues to keep clean. He states he has not had a solid bowel movement to fully evacuate stool. He notes intermittment rectal pressure. He denies any further bleeding. Objective Data Objective Data Vital Signs: Vital Signs Temp Pulse Resp BP Pulse Ox O2 Del Method 99.4 F H 75 17 136/74 H 98 Room Air 02/01/25 04:13 02/01/25 04:13 02/01/25 04:13 02/01/25 04:13 02/01/25 04:13 02/01/25 04:13 Oxygen Delivery Method Room Air Weight: 158 lb 11.725 oz Body Mass Index (BMI) 22.7 Intake & Output: Intake and Output for Last 24 Hours 01/30/25 01/31/25 02/01/25 23:59 23:59 23:59 Intake Total 2150 / 2150 3138.33 / 3378.33 1960 / 1960 Output Total 600 / 600 3180 / 3480 600 / 600 Balance 1550 / 1550 -41.67 / -101.67 1360 / 1360 Lab / Micro Data 02/01/25 06:18 02/01/25 06:18 Labs: Laboratory Results - last 24 hr 02/01/25 06:18: WBC 6.3, RBC 2.55 L, Hgb 8.2 L, Hct 23.9 L, MCV 93.7, MCH 32.2 H, MCHC 34.3, RDW Std Deviation 48.0 H, RDW Coeff of Fito 14.1, Plt Count 138 L, MPV 9.5, Immature Gran % (Auto) 0.600, Neut % (Auto) 73.9 H, Lymph % (Auto) 15.8 L, [place] % (Auto) 6.5, Eos % (Auto) 2.7, Baso % (Auto) 0.5, Absolute Neuts (auto) 4.7, Absolute Lymphs (auto) 1.00, Nucleated RBC % 0, Sodium 138, Potassium 4.4, Chloride 107, Carbon Dioxide 22.0, Anion Gap 8, BUN 33 H, Creatinine 6.22 H, Estim Creat Clear Calc 12.22 L, Est GFR (MDRD) Non-Af 9 L, BUN/Creatinine Ratio 5.3 L, Glucose 98, Calcium 8.5, Total Bilirubin 0.34, AST 13, ALT < 5, Alkaline Phosphatase 50, Total Protein 4.8 L, Albumin 2.9 L, Globulin 1.8 L, Albumin/Globulin Ratio 1.6 Physical Exam GI GI Narrative: Anus- left lateral small opening noted with healthy granulation tissue. small amount of stool leakage noted. No active bright red blood noted. Assessment & Plan Assessment/Plan (1) Rectal bleeding: (2) S/P hemorrhoidectomy: (3) History of anal fistulotomy: PLAN: Plan I am following this patient in conjunction with Dr. Mckoy. She will independently evaluate this patient. Labs reviewed. Hgb 8.2 Plan for a KUB Will discuss further bowel regimen with Dr. Mckoy to see if any additional stimulants may be needed to assist with bowel movements Hopeful return of bowel movement and then discharge to home later today or tomorrow May have dialysis today Charges/Coding Visit Charges Inpatient E&M: 25042 Subs Hosp L1 (no charge)
[2025-02-01] MEDS: Cholecalciferol (Vit D3) 125 MCG CAPSULE (5,000 UNITS) PO (07:57)
[2025-02-01] MEDS: Folic Acid/Vitamin B Comp W-C 1 Capsule 1 CAP PO (07:57)
[2025-02-01] MEDS: Polyethylene Glycol 3350 17 GM PACKET PO (07:57)
--- NOTE | 2025-02-01 08:22 | RAD_ITS ---
PROCEDURE: ABDOMEN SINGLE VIEW 02/01/2025 REASON FOR EXAM: ABDOMINAL DISTENTION TECHNIQUE: ABDOMEN SINGLE VIEW COMPARISON: None FINDINGS: Bowel gas: Moderate amount of fecal material is seen throughout the colon. This is more pronounced in the right hemicolon. No evidence of bowel obstruction. Calcifications: Small pelvic calcifications identified most consistent with phleboliths. Bones: There are degenerative changes of the spine. Other: RAD/Abdomen Single View IMPRESSION: Moderate amount of fecal material is seen in the colon. No evidence of bowel o bstruction. Reading Location: [place] [address]
[2025-02-01] MEDS: PureFlow B 2K Dialysis Soln 1 BAG 6 BAG PF (10:13)
[2025-02-01] MEDS: 0.9% Normal Saline 1,000 ML IV.SOLN. 1000 ML OPERA.SITE (10:14)
[2025-02-01] MEDS: Pantoprazole Sodium 40 MG in 0.9% Normal Saline (100mL MB+) 100 ML 330 MG IV ×2 (10:47→22:22)
[2025-02-01] MEDS: 0.9% Saline Lock 10 ML Syringe IV (10:47)
--- NOTE | 2025-02-01 12:19 | PN.RENAL_ITS ---
Subjective Subjective no new events Objective Data Objective Data Vital Signs: Vital Signs Temp Pulse Resp BP Pulse Ox O2 Del Method 97.6 F L 78 16 133/67 H 100 Room Air 02/01/25 09:30 02/01/25 12:00 02/01/25 12:00 02/01/25 12:00 02/01/25 12:00 02/01/25 12:00 Oxygen Delivery Method Room Air Weight: 72 kg Body Mass Index (BMI) 22.7 Intake & Output: Intake and Output for Last 24 Hours 01/30/25 01/31/25 02/01/25 23:59 23:59 23:59 Intake Total 2150 / 2150 3138.33 / 3378.33 2059 / 2059 Output Total 600 / 600 3180 / 3480 600 / 600 Balance 1550 / 1550 -41.67 / -101.67 1460 / 1460 Lab / Micro Data 02/01/25 06:18 02/01/25 06:18 Labs: Laboratory Results - last 24 hr 02/01/25 06:18: WBC 6.3, RBC 2.55 L, Hgb 8.2 L, Hct 23.9 L, MCV 93.7, MCH 32.2 H , MCHC 34.3, RDW Std Deviation 48.0 H, RDW Coeff of Ifto 14.1, Plt Count 138 L, MPV 9.5, Immature Gran % (Auto) 0.600, Neut % (Auto) 73.9 H, Lymph % (Auto) 15.8 L, [place] % (Auto) 6.5, Eos % (Auto) 2.7, Baso % (Auto) 0.5, Absolute Neuts (auto) 4.7, Absolute Lymphs (auto) 1.00, Nucleated RBC % 0, Sodium 138, Potassium 4.4, Chloride 107, Carbon Dioxide 22.0, Anion Gap 8, BUN 33 H, Creatinine 6.22 H, E stim Creat Clear Calc 12.22 L, Est GFR (MDRD) Non-Af 9 L, BUN/Creatinine Ratio 5.3 L, Glucose 98, Calcium 8.5, Total Bilirubin 0.34, AST 13, ALT < 5, Alkaline Phosphatase 50, Total Protein 4.8 L, Albumin 2.9 L, Globulin 1.8 L, Albumin/Globulin Ratio 1.6 Radiography Diagnostic Testing: Radiology Impression KUB X-Ray 02/01/25 08:22 IMPRESSION: Moderate amount of fecal material is seen in the colon. No evidence of bowel obstruction. Reading Location: [place] [address] Physical Exam Narrative Alert awake oriented x 3 no obvious distress no pallor no icterus no JVD s1s2 no murmurs lungs clear abdomen soft no organomegaly no edema no cyanosis Assessment & Plan Assessment/Plan (1) ESRD (end stage renal disease) on dialysis: PLAN: On hemodialysis. Dialysis today. Usually he does home hemodialysis. Anemia. Due to bleeding. Last known hemoglobin from outpatient dialysis unit is close to 14. stable now. did not have any bleeding overnight. to get enema today
--- NOTE | 2025-02-01 13:59 | NURSING ---
Pt finished with dialysis treatment at 1300 on 02/01. This RN went to pt room to perform enema, but pt requested a short period of time to decompress before enema is administered. Will check back in to perform enema
[2025-02-02 03:18] VITALS: BP 138/69; PULSE 67; RESP 16; TEMP 36.6; O2SAT 100
[2025-02-02] MEDS: Lidocaine 5% 35GM Tube 1 APPLIC TOPICAL (03:24)
[2025-02-02 06:38] LABS: Hematocrit 25.1 % (40-54); Hemoglobin 8.5 g/dL (13.0-16.5); Immature Granulocytes Count 0.030 X10^3/uL (0.0-0.0); Mean Corp Hgb Conc 33.9 g/dL (32-36); Mean Corpuscular Volume 94.0 fL (80-94); Mean Platelet Vol. 9.4 fl (6.2-12.0); NRBC Flagged by Analyzer 0 % (0-5); Platelet Count 125 K/mm3 (150-450); RBC Distribution Width CV 14.2 % (11.6-14.6); RBC Distribution Width SD 47.5 fl (35.1-43.9); Red Blood Count 2.67 M/mm3 (4.6-6.2); White Blood Count 6.5 K/mm3 (4.4-11.0)
--- NOTE | 2025-02-02 06:48 | PCM.PN.HOSP ---
Reason for Visit Reason for Visit: Diagnoses Essential (primary) hypertension (01/30/25) Atherosclerotic heart disease of pauma coronary artery without angina pectoris (01/30/25) Constipation, unspecified (01/30/25) Hemorrhage of anus and rectum (01/30/25) Other hemorrhoids (01/30/25) End stage renal disease (01/30/25) Polycystic kidney, unspecified (01/30/25) Adverse effect of unspecified drugs, medicaments and biological substances, initial encounter (01/30/25) Tobacco use (01/30/25) Personal history of colon polyps, unspecified (01/30/25) Personal history of other diseases of the digestive system (01/30/25) Other specified postprocedural states (01/30/25) Dependence on renal dialysis (01/30/25) Subjective Subjective Patient with no acute events overnight per self and per nursing report. Following enema the day previous and overnight he did have significant bowel movement and felt notably relieved. He is up and moving with greater ease this morning. He notes his stomach feels less distended. He is eager for discharge. Discussed his follow-up hemoglobin this morning noted to be 8.5 which is stable. From discussion with him and surgery plan is for them to release him today. Patient denies fevers, chills, nausea, emesis, abdominal pain, chest pain or dyspnea. Objective Data Objective Data Vital Signs: Vital Signs Temp Pulse Resp BP Pulse Ox O2 Del Method 98 F 67 16 138/69 H 100 Room Air 02/02/25 03:18 02/02/25 03:18 02/02/25 03:18 02/02/25 03:18 02/02/25 03:18 02/02/25 03:18 Oxygen Delivery Method Room Air Weight: 154 lb 5.177 oz Body Mass Index (BMI) 22.1 Intake & Output: Intake and Output for Last 24 Hours 01/31/25 02/01/25 02/02/25 23:59 23:59 23:59 Intake Total 3138.33 / 3378.33 2160 / 2160 Output Total 3180 / 3480 2750 / 2750 Balance -41.67 / -101.67 -590 / -590 Lab / Micro Data 02/02/25 06:10 02/02/25 06:10 Labs: Laboratory Results - last 24 hr 02/01/25 06:18: Sodium 138, Potassium 4.4, Chloride 107, Carbon Dioxide 22.0, Anion Gap 8, BUN 33 H, Creatinine 6.22 H, Estim Creat Clear Calc 12.22 L, Est GFR (MDRD) Non-Af 9 L, BUN/Creatinine Ratio 5.3 L, Glucose 98, Calcium 8.5, Total Bilirubin 0.34, AST 13, ALT < 5, Alkaline Phosphatase 50, Total Protein 4.8 L, Albumin 2.9 L, Globulin 1.8 L, Albumin/Globulin Ratio 1.6 02/02/25 06:10: WBC 6.5, RBC 2.67 L, Hgb 8.5 L, Hct 25.1 L, MCV 94.0, MCH 31.8, MCHC 33.9, RDW Std Deviation 47.5 H, RDW Coeff of Fito 14.2, Plt Count 125 L, MPV 9.4, Immature Gran % (Auto) 0.500, Neut % (Auto) 78.6 H, Lymph % (Auto) 10.8 L, [place] % (Auto) 6.8, Eos % (Auto) 2.8, Baso % (Auto) 0.5, Absolute Neuts (auto) 5.1, Absolute Lymphs (auto) 0.70 L, Nucleated RBC % 0 Radiography Diagnostic Testing: Radiology Impression KUB X-Ray 02/01/25 08:22 IMPRESSION: Moderate amount of fecal material is seen in the colon. No evidence of bowel obstruction. Reading Location: [place] [address] Physical Exam Narrative Physical Examination: General: Awake, alert, oriented x 3 and cooperative, seated upright in the MS bed, improved appearance, notes significant bowel movement and eager for discharge. Skin: Normal color, normal turgor, no icterus, no cyanosis except occasional stage ecchymoses, abrasion. HEENT: AT/NC, EOMI, PERRLA, MMM. Lungs: CTA bilaterally, moderate effort, mild decrease BL bases, no rales, ronchi or wheezing. Heart: Regular rate and rhythm; no gallop, rub audible. Abdomen: Soft, NTTP, no longer distended, no tympany, normalized BS. Extremities: No cyanosis, clubbing, or edema. Neurological: Patient awake, alert, oriented as noted, cognitive function intact; pupils equally reactive to light and accommodation, cranial nerves grossly normal, moving all 4 extremities, no focal deficits, strength improved, mildly globally decreased. Psychiatric: Affect appears normal, no acute evidence of depressive or anxiety feelings. Assessment & Plan Assessment/Plan (1) Rectal bleeding: PLAN: Plan The patient is a 64-year-old male with past medical history M w/ PMHx: PCKD w/ ESRD, CAD s/p PCI, HTN, HLD, GERD, Tobacco use, Hx VTE (DVT) who presents to the [facility] ED on 01/30/25 with history of persistent severe rectal bleeding status post recent hemorrhoidectomy. #1. Acute severe persistent rectal bleeding status post hemorrhoidectomy with associated acute blood loss anemia: OR 01/30/[address] Nj with an anorectal exam under anesthesia with suture ligation for hemostasis, admitted to medical surgical floor given stable vital signs, admission hemoglobin 9.9, MCV 93.4, notable bright red blood per rectum until operative intervention, 01/31/2025 and hemoglobin 9.3, MCV 95.3 with vital signs stable. Continued on bowel regimen. 02/01/25 hemoglobin 8.2, MCV 93.7. Dialyzed 01/31/25-02/01/25 without issue. KUB 02/01/2025 with noted decent stool burden with enema administered with significant stool output following. 02/02/2025 hemoglobin 8.5. Patient with no further bleeding events. Agree with discharge to home once amenable per surgery service. As noted previously patient will need a resumption plan of antiplatelet therapy clearly delineated by the surgery service. Also may consider repeat hemoglobin outpatient with PCP following and reinitiation of this antiplatelet therapy. #2. PCKD with ESRD: Patient with HD at home 4 days weekly, following with Dr. Shirley, dialyzed 01/31/25 and 02/01/25 without issue. Nephrology following. #3. CAD: Status post PCI and CABG x 4, reinitiate aspirin therapy once cleared for surgery given acute presentation #1, continued on statin, previously been on metoprolol but not currently listed under medications, clarified to be certain, not on DANIA inhibitor/ARB. As noted above may require follow-up hemoglobin outpatient with PCP and resumption of aspirin therapy if stable at that time but will defer to surgery discretion. #4. Hypertension: Previously on metoprolol, not currently on any regimen per most recently noted list, possibly BP related, clarified to be certain. #5. Hyperlipidemia: Continue patient on statin therapy. #6. GERD: Maintained on PPI IV per surgery discretion. Given oral intake may consider transition to oral version at this time. #7. History of VTE: Chart history with previous DVT, SCDs given #1 recommended. #8. Tobacco Abuse: Encouraged cessation, inpatient consultation per RT, NR if desired. #9. DVT prophylaxis: SCDs given #1 recommended. #10. 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 Full Code status. Charges/Coding Visit Charges Inpatient E&M: 19858 Subs Hosp L2
[2025-02-02 07:15] LABS: AST(SGOT) 15 U/L (<=37); Alanine Aminotransfer ALT/SGPT < 5 U/L (<=46); Albumin, Serum 2.9 g/dL (3.4-4.8); Alkaline Phosphatase 50 U/L (40-129); Anion Gap 10 (5-15); BUN 25 mg/dL (4-19); BUN/Creat Ratio 4.6 RATIO (10-20); Calcium,Total 8.8 mg/dL (7.6-11.0); Carbon Dioxide 22.9 mmol/L (21.0-32.0); Chloride 104 mmol/L (98-108); Estimated Creatinine Clearance 13.53 ml/min (50-250); Globulin 2.2 g/dL (2.2-4.2); Glucose 98 mg/dL (70-99); Potassium 4.0 mmol/L (3.3-5.1)
--- NOTE | 2025-02-02 07:52 | PN.SURG_ITS ---
Subjective Subjective Patient evaluated resting comfortably in bed. He stated he had a significantly large bowel movement. He notes feeling much improved. He states he is having some discomfort at the anus. He denies any further bright red bleeding. Objective Data Objective Data Vital Signs: Vital Signs Temp Pulse Resp BP Pulse Ox O2 Del Method 98 F 67 16 138/69 H 100 Room Air 02/02/25 03:18 02/02/25 03:18 02/02/25 03:18 02/02/25 03:18 02/02/25 03:18 02/02/25 03:18 Oxygen Delivery Method Room Air Weight: 154 lb 5.177 oz Body Mass Index (BMI) 22.1 Intake & Output: Intake and Output for Last 24 Hours 01/31/25 02/01/25 02/02/25 23:59 23:59 23:59 Intake Total 3138.33 / 3378.33 2160 / 2160 Output Total 3180 / 3480 2750 / 2750 Balance -41.67 / -101.67 -590 / -590 Lab / Micro Data 02/02/25 06:10 02/02/25 06:10 Labs: Laboratory Results - last 24 hr 02/02/25 06:10: WBC 6.5, RBC 2.67 L, Hgb 8.5 L, Hct 25.1 L, MCV 94.0, MCH 31.8, MCHC 33.9, RDW Std Deviation 47.5 H, RDW Coeff of Fito 14.2, Plt Count 125 L, MPV 9.4, Immature Gran % (Auto) 0.500, Neut % (Auto) 78.6 H, Lymph % (Auto) 10.8 L, [place] % (Auto) 6.8, Eos % (Auto) 2.8, Baso % (Auto) 0.5, Absolute Neuts (auto) 5.1, Absolute Lymphs (auto) 0.70 L, Nucleated RBC % 0, Sodium 136, Potassium 4.0, Chloride 104, Carbon Dioxide 22.9, Anion Gap 10, BUN 25 H, Creatinine 5.46 H, Estim Creat Clear Calc 13.53 L, Est GFR (MDRD) Non-Af 11 L, BUN/Creatinine Ratio 4.6 L, Glucose 98, Calcium 8.8, Total Bilirubin 0.46, AST 15, ALT < 5, Alkaline Phosphatase 50, Total Protein 5.1 L, Albumin 2.9 L, Globulin 2.2, Albumin/Globulin Ratio 1.4 Radiography Diagnostic Testing: Radiology Impression KUB X-Ray 02/01/25 08:22 IMPRESSION: Moderate amount of fecal material is seen in the colon. No evidence of bowel obstruction. Reading Location: [facility] Physical Exam GI GI Narrative: Abdomen- soft, generalized tenderness. Assessment & Plan Assessment/Plan (1) Constipation: QUALIFIERS: Constipation type: unspecified constipation type Q ualified Code(s): K59.00 - Constipation, unspecified (2) S/P hemorrhoidectomy: (3) Rectal bleeding: (4) Anal fistula: PLAN: Plan I am seeing this patient in conjunction with Dr. Mckoy. She will independently evaluate this patient. Labs reviewed Patient appears to be improved Plan for discharge today Charges/Coding Visit Charges Inpatient E&M: 35941 Subs Hosp L1 (no charge)
[2025-02-02 08:55] VITALS: BP 119/83; PULSE 74; RESP 18; TEMP 37.1; O2SAT 99
[2025-02-02] MEDS: Folic Acid/Vitamin B Comp W-C 1 Capsule 1 CAP PO (10:07)
[2025-02-02] MEDS: Cholecalciferol (Vit D3) 125 MCG CAPSULE (5,000 UNITS) PO (10:07)
--- NOTE | 2025-02-02 10:52 | DS.PCM_ITS ---
Providers Date of Admission: 01/30/25 Primary Care Physician: Dr. Jg Pollard, DO Consultations 01/30/25 06:01 Consult: Nephrology Routine Consulting Provider: Ying Shirley Reason for Consult: ESRD on HD. EMERGENT Consult: No MD Notified: No Date Notified: 01/30/25 Time Notified: 06:01 01/30/25 08:28 Consult: Nephrology Routine Consulting Provider: Stewart Mcintosh Reason for Consult: esrd EMERGENT Consult: No MD Notified: Yes Date Notified: 01/30/25 Time Notified: 08:28 Method of Notification: Answering Service Reason For Visit: ANORECTAL EXAM UNDER ANES Diagnosis Discharge Diagnosis (1) Constipation: Status: Acute Code(s): K59.00 - Constipation, unspecified Qualifiers: Constipation type: unspecified constipation type Qualified Code(s): K 59.00 - Constipation, unspecified (2) S/P hemorrhoidectomy: Status: Acute Code(s): Z98.890 - Other specified postprocedural states; Z87.19 - Personal history of other diseases of the digestive system (3) Rectal bleeding: Status: Acute Code(s): K62.5 - Hemorrhage of anus and rectum (4) Anal fistula: Status: Chronic Code(s): K60.30 - Anal fistula, unspecified Plan I am seeing this patient in conjunction with Dr. Mckoy. She will independently evaluate this patient. Labs reviewed Patient appears to be improved Plan for discharge today Medications at Discharge Home Medications aspirin 81 mg tablet,delayed release 81 mg PO DAILY 05/29/21 cholecalciferol (vitamin D3) 125 mcg (5,000 unit) capsule 125 mcg PO DAILY 05/29/21 metoprolol tartrate 25 mg tablet 25 mg PO BID 05/29/21 pravastatin 40 mg tablet 40 mg PO QHS 05/29/21 hydrocortisone 2.5 % topical cream with perineal applicator (Proctozone-HC) 1 applic IL QD-BID PRN hemorrhoids #30 grams 10/13/24 oxycodone 10 mg tablet 10 mg PO TID PRN pain 10/13/24 vitamin B complex-vitamin C-folic acid 0.8 mg tablet (Renal-Svetlana) 1 tab PO QDAY 10/13/24 calcitriol 0.25 mcg capsule 0.25 mcg PO DAILY 04/06/25 lidocaine-prilocaine 2.5 %-2.5 % topical cream 1 applic topical DAILY PRN SKIN 10/31/24 ondansetron 4 mg disintegrating tablet 4 mg PO Q4H PRN PRN nausea and vomiting 12/21/24 lidocaine 5 % topical ointment 1 applic topical BID PRN Topical Pain #0 grams 02/02/25 pantoprazole 40 mg tablet,delayed release (Protonix) 40 mg PO DAILY #90 tabs 02/02/25 Hospital Course Operations - (Anorectal exam under anesthesia with suture ligation for hemostasis) Summary of Care Provided Minutes Spent on Discharge: 20 Hospital Course: Patient is a 64 y/o M who presented with bright red rectal bleeding s/p hemorrhoidectomy on 01/[address] Nj performed an Anorectal exam under anesthesia with suture ligation for hemostasis on 01/30/25. Patient tolerated the procedure well. Patient continued to have difficulties with constipation following the procedure. He was given a tap water enema following a KUB that was obtained on 02/01/25. Patient had a significantly large bowel movement the morning of 02/02. Upon discharge, patient tolerated his diet well. He notes abdominal soreness and intermittent rectal discomfort. He will be discharged on Protonix to assist with his reflux disease. He is instructed to use lidocaine ointment as needed for discomfort. He is to follow-up in [address] Mckoy. Weight / BMI Weight Weight: 154 lb 5.177 oz Body Mass Index (BMI) 22.1 ABG / Lab / Microbiology Data 02/02/25 06:10 02/02/25 06:10 Laboratory: Laboratory Results - last 24 hr 02/02/25 06:10: WBC 6.5, RBC 2.67 L, Hgb 8.5 L, Hct 25.1 L, MCV 94.0, MCH 31.8, MCHC 33.9, RDW Std Deviation 47.5 H, RDW Coeff of Fito 14.2, Plt Count 125 L, MPV 9.4, Immature Gran % (Auto) 0.500, Neut % (Auto) 78.6 H, Lymph % (Auto) 10.8 L, [place] % (Auto) 6.8, Eos % (Auto) 2.8, Baso % (Auto) 0.5, Absolute Neuts (auto) 5.1, Absolute Lymphs (auto) 0.70 L, Nucleated RBC % 0, Sodium 136, Potassium 4.0, Chloride 104, Carbon Dioxide 22.9, Anion Gap 10, BUN 25 H, Creatinine 5.46 H, Estim Creat Clear Calc 13.53 L, Est GFR (MDRD) Non-Af 11 L, BUN/Creatinine Ratio 4.6 L, Glucose 98, Calcium 8.8, Total Bilirubin 0.46, AST 15, ALT < 5, Alkaline Phosphatase 50, Total Protein 5.1 L, Albumin 2.9 L, Globulin 2.2, Albumin/Globulin Ratio 1.4 D/C Instructions Discharge Diet: Light diet - advance as tolerated Call your doctor if your incision/area has: Continuous Slow Oozing, Sudden Increased Bleeding, Increased Pain/ Swelling, Foul Smelling Discharge and Swelling at the incision site Call your doctor if you observe: Fever of 101 or Higher Cleanse incision/area with: Soap & Water DC O2, CPAP, BIPAP Needs Home O2 Discharge instructions: No DC home with Oxygen: No Please Follow Up With: Maria Ines Mckoy MD When: Please contact our office to schedule an appointment to follow-up at [phone], option #2 Meaningful Use Info Meaningful Use Meaningful Use Diagnoses (Choose all that apply): None applicable Ischemic Stroke Statin Dosing Therapy Reference: STATIN DOSE THERAPY REFERENCE: * Patients > 75 years receive moderate or high dose statin therapy. * Patients 75 years or YOUNGER should receive HIGH intensity statin dose unless contraindicated. You will be required to document reason for non-treatment if statin daily dose does not meet guidelines. HIGH DOSE STATIN THERAPY DAILY Atorvastatin > than or = to 40 mg Rosuvastatin > than or = to 20 mg Amlodipine + Atorvastatin > than or = to 2.5/40 mg Ezetimibe + Simvastatin 10/80 mg Simvastatin 80mg Discharge Plan Admission Admit Date/Time: 01/30/25 08:14 Primary Reason for Your Visit: Constipation; rectal bleeding Attending Provider: Fili Nj Primary Care Provider: Jg Pollard Consulting Providers: Brittney Mcintosh Autumn L Instructions Additional Instructions / Restrictions: Rectal Surgery Diet ? Start light with soups and soft bland foods. You may advance diet as tolerated. ? I recommend avoiding spicy foods or food that would cause constipation like cheese. Activity ? Expect to have pain/discomfort for at least 2 weeks following surgery. ? You may drive in 5-7 days but not while taking narcotic pain medication. ? You may shower or bathe as needed for hygiene. ? I recommend a sitz bath of warm soapy water for 20 minutes at a time, 3 times a day for comfort and hygiene. ? I recommend sitting on a soft pillow for comfort, I do NOT recommend sitting on a donut ? Do not swim or use hot tubs for 2 weeks. Lifting ? You may lift up to 10 pounds for 2 weeks. Dressings/Incision ? You may utilize gauze or female hygiene pads as needed for possible drainage. ? If there is a tube of dibucaine ointment provided you may utilize that every 2 hours as needed for comfort. Medications ? Anesthesia used during surgery and pain medications may cause constipation. I recommend initiating on the day of surgery a fiber supplement like, Metamucil, Citrucel, FiberCon, Benefiber, or a generic form of these medications. 1 heaping tablespoon in water daily. You may continue to utilize any bowel regimen or oral laxatives that you routinely take. Recommend taking Miralax, 1 tablespoon, daily mixed with 8-16 ounces of water. ? You may have additional steroid creams prescribed or oral antibiotics, please take as directed. ? As long as you are not intolerant to Tylenol, acetaminophen, ibuprofen, Motrin, Advil, Aleve, or similar medications, I would recommend transitioning to these [id number] medicines as soon as possible instead of continued use of narcotic pain medication. Follow up ? You should call [facility] soon after surgery, at [phone] option 2 to make a follow up appointment for 1 week. Discharge Orders/Prescriptions Prescriptions: New lidocaine 5 % Ointment 1 applic topical BID PRN (Reason: Topical Pain) Qty: 0 0RF Protocol: *Topical Application Instructions APPLICATION INSTRUCTIONS: apply to rectal area--use before enema pantoprazole [Protonix] 40 mg tablet,delayed release (DR/EC) 40 mg PO DAILY Qty: 90 4RF Continued metoprolol tartrate 25 mg tablet 25 mg PO BID pravastatin 40 mg tablet 40 mg PO QHS aspirin 81 mg tablet,delayed release (DR/EC) 81 mg PO DAILY cholecalciferol (vitamin D3) 125 mcg (5,000 unit) capsule 125 mcg PO DAILY Renal-Svetlana 0.8 mg tablet 1 tab PO QDAY oxycodone 10 mg tablet 10 mg PO TID PRN (Reason: pain) hydrocortisone [Proctozone-HC] 2.5 % cream with perineal applicator 1 applic IL QD-BID PRN (Reason: hemorrhoids) Qty: 30 0RF lidocaine-prilocaine 2.5-2.5 % cream 1 applic topical DAILY PRN (Reason: SKIN) calcitriol 0.25 mcg capsule 0.25 mcg PO DAILY ondansetron 4 mg tablet,disintegrating 4 mg PO Q4H PRN PRN (Reason: nausea and vomiting) Discontinued (DME) hydrocortisone 2.5%/lidocaine 5% suppository (compound) Suppository See Rx Instructions .ROUTE Qty: 30 1RF Rx Instructions: insert rectum twice daily Referrals / Follow Up: Jg oPllard DO [Primary Care Provider] - Maria Ines Mckoy MD [Med Staff - Active Staff] - 02/09/25 Disposition Disposition (needs filled in before D/C Order can be placed): Home, Self Care Charges/Coding Visit Charges Inpatient E&M: 92230 Disch Hosp (post-op)
--- NOTE | 2025-02-02 11:34 | PN.RENAL_ITS ---
Subjective Subjective No new complaints today Objective Data Objective Data Vital Signs: Vital Signs Temp Pulse Resp BP Pulse Ox O2 Del Method 98.7 F 74 18 119/83 H 99 Room Air 02/02/25 08:55 02/02/25 08:55 02/02/25 08:55 02/02/25 08:55 02/02/25 08:55 02/02/25 08:56 Oxygen Delivery Method Room Air Weight: 70 kg Body Mass Index (BMI) 22.1 Intake & Output: Intake and Output for Last 24 Hours 01/31/25 02/01/25 02/02/25 23:59 23:59 23:59 Intake Total 3138.33 / 3378.33 2160 / 2160 Output Total 3180 / 3480 2750 / 2750 Balance -41.67 / -101.67 -590 / -590 Lab / Micro Data 02/02/25 06:10 02/02/25 06:10 Labs: Laboratory Results - last 24 hr 02/02/25 06:10: WBC 6.5, RBC 2.67 L, Hgb 8.5 L, Hct 25.1 L, MCV 94.0, MCH 31.8, MCHC 33.9, RDW Std Deviation 47.5 H, RDW Coeff of Fito 14.2, Plt Count 125 L, MPV 9.4, Immature Gran % (Auto) 0.500, Neut % (Auto) 78.6 H, Lymph % (Auto) 10.8 L, [place] % (Auto) 6.8, Eos % (Auto) 2.8, Baso % (Auto) 0.5, Absolute Neuts (auto) 5.1, Absolute Lymphs (auto) 0.70 L, Nucleated RBC % 0, Sodium 136, Potassium 4.0, Chloride 104, Carbon Dioxide 22.9, Anion Gap 10, BUN 25 H, Creatinine 5.46 H, Estim Creat Clear Calc 13.53 L, Est GFR (MDRD) Non-Af 11 L, BUN/Creatinine Ratio 4.6 L, Glucose 98, Calcium 8.8, Total Bilirubin 0.46, AST 15, ALT < 5, Alkaline Phosphatase 50, Total Protein 5.1 L, Albumin 2.9 L, Globulin 2.2, Albumin/Globulin Ratio 1.4 Physical Exam Narrative Alert awake oriented x 3 no obvious distress no pallor no icterus no JVD s1s2 no murmurs lungs clear abdomen soft no organomegaly no edema no cyanosis Assessment & Plan Assessment/Plan (1) ESRD (end stage renal disease) on dialysis: PLAN: On home hemodialysis. Last dialysis 02/01/2025. Doing well. Anemia. Due to bleeding. Last known hemoglobin from outpatient dialysis unit is close to 14. stable now. Will arrange for iron infusions and [facility] as outpatient Discharge today
--- NOTE | 2025-02-02 11:35 | CASEMGMT ---
Addendum entered by Kristina Grewal 02/02/25 11:51: Pt states he has enough supplies for dialysis and works with [employer] for this. Original Note: RN CM into pt room, pt lying in bed in no distress with son at bedside. Pt agreeable to discussion with son present. Pt states he does home dialysis 4 days/wk. He states he picks the days but does not go more than 2 days without in a row. Pt denies any DME at home, states that he has DME available should he need it. Pt feels safe to go home.
== END 2025-02-02 12:09 | disposition home or self-care (01) ==
LOC: ED 04:15 → SDC 04:31 → AC 04:32 → SDC 05:34 → MS3 05:35
PROVIDERS: Family Medicine; Internal Medicine; Admitting Provider Surgery; Emergency Provider Emergency Medicine; PCP Family Medicine; Referring Provider Surgery; Visit Provider Surgery
PROC: (CPT 46614; principal; 2025-01-30 05:30)
DX: K91.841 Postprocedural hemorrhage of a digestive system organ or structure following other procedure (principal); N18.6 End stage renal disease; I12.0 Hypertensive chronic kidney disease with stage 5 chronic kidney disease or end stage renal disease; K62.5 Hemorrhage of anus and rectum; K64.8 Other hemorrhoids; Z86.718 Personal history of other venous thrombosis and embolism; F17.210 Nicotine dependence, cigarettes, uncomplicated; Z79.82 Long term (current) use of aspirin; K60.30 Anal fistula, unspecified; I25.10 Atherosclerotic heart disease of native coronary artery without angina pectoris; E78.00 Pure hypercholesterolemia, unspecified; Q61.3 Polycystic kidney, unspecified; Z95.5 Presence of coronary angioplasty implant and graft; Z99.2 Dependence on renal dialysis; Z79.899 Other long term (current) drug therapy; T50.905A Adverse effect of unspecified drugs, medicaments and biological substances, initial encounter; D62 Acute posthemorrhagic anemia; D50.9 Iron deficiency anemia, unspecified; Z86.14 Personal history of Methicillin resistant Staphylococcus aureus infection; K21.9 Gastro-esophageal reflux disease without esophagitis; Z95.1 Presence of aortocoronary bypass graft; K59.09 Other constipation
CPT/HCPCS: 46614; 00902; 36415; 74018; 80048; 80053; 80061; 82728; 83540; 83550; 83735; 84100; 84443; 85025; 85610; 85730; 86850; 86900; 86901; 86920; 90937; 96361; 96365; 96366; 96375; 97802; 99221; 99285; 99406; A4216; G0257; G0378; J0666; J2405

== ENCOUNTER → 2025-02-18 | Outpatient (CLI) | payer MEDICARE, SELFPAY ==
[2025-02-18 13:16] LABS: PSA,Total - Annual Screen 0.59 ng/mL (0.02-4.00)
== END | disposition home or self-care (01) ==
LOC: BFHLAB 10:19
PROVIDERS: PCP Family Medicine; Visit Provider Family Medicine
DX: Z12.5 Encounter for screening for malignant neoplasm of prostate (principal)
CPT/HCPCS: 36415; 84153; G0103